=== PATIENT | female | born 1950 | race Caucasian/White ===

== ENCOUNTER → 2020-02-24 11:17 | Outpatient (BNVA) | payer MEDICARE, MEDICAID, SELFPAY | PROVIDERS: PCP Internal Medicine; Referring Provider Internal Medicine; Visit Provider Orthopaedic Surgery | DX: M70.61 Trochanteric bursitis, right hip (principal) | CPT/HCPCS: 20610; 99213; 99214; J1040 ==

== ENCOUNTER → 2020-03-13 11:19 | Outpatient (BNVA) | payer MEDICARE, MEDICAID, SELFPAY | PROVIDERS: PCP Internal Medicine; Referring Provider Internal Medicine; Visit Provider Internal Medicine | DX: J44.9 Chronic obstructive pulmonary disease, unspecified (principal); R91.8 Other nonspecific abnormal finding of lung field; G47.33 Obstructive sleep apnea (adult) (pediatric); C67.9 Malignant neoplasm of bladder, unspecified; F17.210 Nicotine dependence, cigarettes, uncomplicated; Z79.899 Other long term (current) drug therapy | CPT/HCPCS: 99212 ==

== ENCOUNTER → 2020-04-18 09:45 | Outpatient (BNVA) | payer MEDICARE, OTHER, SELFPAY | PROVIDERS: PCP Internal Medicine; Referring Provider Internal Medicine; Visit Provider Internal Medicine Endocrinology, Diabetes & Metabolism | DX: E11.65 Type 2 diabetes mellitus with hyperglycemia (principal); E11.42 Type 2 diabetes mellitus with diabetic polyneuropathy; E78.5 Hyperlipidemia, unspecified; I10 Essential (primary) hypertension; R79.89 Other specified abnormal findings of blood chemistry; E53.8 Deficiency of other specified B group vitamins | CPT/HCPCS: 82947; 99212 ==

== ENCOUNTER → 2020-04-20 09:53 | Outpatient (BNVA) | payer MEDICARE, OTHER, SELFPAY | PROVIDERS: PCP Internal Medicine; Visit Provider Internal Medicine Gastroenterology | DX: Z13.89 Encounter for screening for other disorder (principal) | CPT/HCPCS: Q3014 ==

== ENCOUNTER 2020-05-21 07:45 | Day surgery (SDC) | payer MEDICARE, OTHER, SELFPAY ==
--- NOTE | 2020-05-18 09:13 | P.CONAN_ITS ---
Documented by User: Ruth Ramirez 05/18/20 14:52 HPI - Anesthesia Eval Consult details Narrative: 69yo F for TUR Bladder Tumor,gencitabine instillation Cardiac cleared [facility] Past Medical History Medical History Abnormal colonoscopy Anxiety Bladder cancer CAD (coronary artery disease) Cervical stenosis of spine COPD (chronic obstructive pulmonary disease) Depression Diabetes Diabetic polyneuropathy associated with type 2 diabetes mellitus HTN (hypertension) Hyperlipidemia Low vitamin D level Migraine headache Nonalcoholic steatohepatitis (CHRISTINE) Pulmonary nodule Smoker Vertigo Vitamin B12 deficiency Family History Family History Mother CVD (cardiovascular disease) CVA (cerebral vascular accident) Father CVD (cardiovascular disease) Surgical History Surgical History Fusion of spine of cervical region History of carpal tunnel release History of hysterectomy Social History Social History Alcohol intake: never Smoking Status: Current every day smoker Tobacco Type: Cigarette Cigarettes Per Day: 10 Smoked in Last 30 Days: Yes Use of substances other than those prescribed or required for medical reasons: No Advance Directives: No Advance Directives Information Provided: Yes Recently lost weight without trying: Yes Current occupational status: retired Current occupation: [employer] Meds Allergies Allergy/AdvReac Type Severity Reaction Status Date / Time amoxicillin [AMOXICILLIN] Allergy Mild DIARRHEA Verified 03/13/20 12:00 Darvocet A500 Allergy Unknown upset Verified 03/13/20 12:00 stomach melatonin Allergy Unknown Nausea and Verified 03/13/20 12:00 Vomiting oxycodone [From PERCOCET] Allergy Unknown NAUSEA,VOMI Verified 03/13/20 12:00 TING Propoxyphene HCl Allergy Unknown upset Verified 03/13/20 12:00 stomach influenza virus vaccine, AdvReac Intermediate NAUSEA,DIAR Verified 03/13/20 12:00 specific WU [FLU VACCINE] Iodinated Contrast Media AdvReac Intermediate NAUSEA,DIZZINESS,CHEST Verified 03/13/20 12:00 [IV CONTRAST] PRESSURE lactose [LACTOSE] AdvReac Intermediate GI UPSET Verified 03/13/20 12:00 metronidazole [From FLAGYL] AdvReac Intermediate NAUSEA & Verified 03/13/20 12:00 VOMITING Sulfa (Sulfonamide AdvReac Intermediate EYE DROPS Verified 05/21/20 09:18 Antibiotics) (ONLY)-IRITIS Home Medications Medication Instructions Recorded Confirmed Type aspirin 1 tab PO DAILY 03/08/20 04/20/20 History [id number]-[id number]-[id number] 1 tab PO Q6H PRN 03/08/20 04/20/20 History cholecalciferol (vitamin D3) 125 mcg PO DAILY 03/08/20 04/20/20 History cyanocobalamin (vitamin B-12) 2 tab PO DAILY 03/08/20 04/20/20 History ezetimibe [Zetia] 10 mg PO DAILY 03/08/20 04/20/20 History gabapentin 1 cap PO BID 03/08/20 04/20/20 History lisinopril 1 tab PO DAILY 03/08/20 04/20/20 History triamterene-hydrochlorothiazid 1 tab PO DAILY 03/08/20 04/20/20 History topiramate 100 mg tablet 100 mg PO BID 04/18/20 04/20/20 History zolpidem 10 mg tablet 10 mg PO BEDTIME 04/18/20 04/20/20 History nystatin 100,000 unit/gram topical 1 appl TOPICAL TID 04/19/20 04/20/20 History powder Exam Exam Date and Time: May 18, 2020912 Narrative Narrative: EKG 03/27/2020: SR @71, vertical axis Echo 04/11/20: LVEF >70% Gr 2 DD with increased LA pressure LA mildly dilated RV nml in size Mild MR Trace TR Resting MIBI only 11/2019: Medium size moderate defect involving the inferolateral mid and basal segments. Dobutamine stress to be scheduled. Per cardiology note 03/2020 recent stress of good quality showed no ischemia, only old infarct. Assessment and Plan Assessment Anesthesia Assessment: Chart Reviewed Documented by User: Aggie Casarez 05/21/20 10:24 [facility] Past Medical History Medical History Abnormal colonoscopy Anxiety Bladder cancer CAD (coronary artery disease) Cervical stenosis of spine COPD (chronic obstructive pulmonary disease) Depression Diabetes Diabetic polyneuropathy associated with type 2 diabetes mellitus HTN (hypertension) Hyperlipidemia Low vitamin D level Migraine headache Nonalcoholic steatohepatitis (CHRISTINE) Pulmonary nodule Smoker Vertigo Vitamin B12 deficiency Family History Family History Mother CVD (cardiovascular disease) CVA (cerebral vascular accident) Father CVD (cardiovascular disease) Surgical History Surgical History Fusion of spine of cervical region History of carpal tunnel release History of hysterectomy Social History Social History Alcohol intake: never Smoking Status: Current every day smoker Tobacco Type: Cigarette Cigarettes Per Day: 10 Smoked in Last 30 Days: Yes Use of substances other than those prescribed or required for medical reasons: No Advance Directives: No Advance Directives Information Provided: Yes Recently lost weight without trying: Yes Current occupational status: retired Current occupation: [employer] Meds Allergies Allergy/AdvReac Type Severity Reaction Status Date / Time amoxicillin [AMOXICILLIN] Allergy Mild DIARRHEA Verified 03/13/20 12:00 Darvocet A500 Allergy Unknown upset Verified 03/13/20 12:00 stomach melatonin Allergy Unknown Nausea and Verified 03/13/20 12:00 Vomiting oxycodone [From PERCOCET] Allergy Unknown NAUSEA,VOMI Verified 03/13/20 12:00 TING Propoxyphene HCl Allergy Unknown upset Verified 03/13/20 12:00 stomach influenza virus vaccine, AdvReac Intermediate NAUSEA,DIAR Verified 03/13/20 12:00 specific WU [FLU VACCINE] Iodinated Contrast Media AdvReac Intermediate NAUSEA,DIZZINESS,CHEST Verified 03/13/20 12:00 [IV CONTRAST] PRESSURE lactose [LACTOSE] AdvReac Intermediate GI UPSET Verified 03/13/20 12:00 metronidazole [From FLAGYL] AdvReac Intermediate NAUSEA & Verified 03/13/20 12:00 VOMITING Sulfa (Sulfonamide AdvReac Intermediate EYE DROPS Verified 05/21/20 09:18 Antibiotics) (ONLY)-IRITIS Home Medications Medication Instructions Recorded Confirmed Type aspirin 1 tab PO DAILY 03/08/20 04/20/20 History xpjsnheqpq-elkmtbfplzwjz-sglb 1 tab PO Q6H PRN 03/08/20 04/20/20 History cholecalciferol (vitamin D3) 125 mcg PO DAILY 03/08/20 04/20/20 History cyanocobalamin (vitamin B-12) 2 tab PO DAILY 03/08/20 04/20/20 History ezetimibe [Zetia] 10 mg PO DAILY 03/08/20 04/20/20 History gabapentin 1 cap PO BID 03/08/20 04/20/20 History lisinopril 1 tab PO DAILY 03/08/20 04/20/20 History triamterene-hydrochlorothiazid 1 tab PO DAILY 03/08/20 04/20/20 History topiramate 100 mg tablet 100 mg PO BID 04/18/20 04/20/20 History zolpidem 10 mg tablet 10 mg PO BEDTIME 04/18/20 04/20/20 History nystatin 100,000 unit/gram topical 1 appl TOPICAL TID 04/19/20 04/20/20 History powder Exam Airway Mallampati Class: II TM Dist: >3cm Neck ROM: Full Denture: Upper and Lower Assessment and Plan Assessment Anesthesia Assessment: Anesthesia Plan Discussed and Chart Reviewed Final Anesthetic Review NPO: Yes ASA Class: III Final Preanesthetic Review: No Changes in Pt Med Stat, Meds/Allgs Chart Reviewed, Consent Obtained/Reviewed and Anes Risks/Benef Reviewed Patient Risk: Intermediate Procedure Risk: Low Assessment/Block/Sedation in SS: Assess/Block/Sedation-SS Anesthetic Plan Anesthetic Plan: MAC: Disposition: Standard PACU
[2020-05-21] VITALS (7 sets, daily range): BP systolic 99–127; BP diastolic 44–62; PULSE 72–87; RESP 16–18; TEMP 36.4–36.6; O2SAT 98–100; BMI 25.4
[2020-05-21 08:28] LABS: Glucose, Whole Blood 144 mg/dL (60-115)
[2020-05-21] MEDS: Lactated Ringers 1,000 ML 50 ML IVCONT (09:18)
--- NOTE | 2020-05-21 10:39 | MHC.SHP ---
Pre-Procedural Eval Section A The History & Physical has been completed within 30 days and I have reviewed it.: Yes Section B Chief Complaint: bladder ca Details of Present Illness: Recurrent bladder cancer Needs TURBT with Relevant Family History (Specify if Yes): No Relevant Social History: Tobacco Use Present Medications: see Short Stay Collaborative assessment Medical History: No relevant PMH History of Previous Operations: Relevant previous surgery/procedure and date(s) Allergies: Allergies Allergy/AdvReac Type Severity Reaction Status Date / Time amoxicillin [AMOXICILLIN] Allergy Mild DIARRHEA Verified 03/13/20 12:00 Darvocet A500 Allergy Unknown upset Verified 03/13/20 12:00 stomach melatonin Allergy Unknown Nausea and Verified 03/13/20 12:00 Vomiting oxycodone [From PERCOCET] Allergy Unknown NAUSEA,VOMI Verified 03/13/20 12:00 TING Propoxyphene HCl Allergy Unknown upset Verified 03/13/20 12:00 stomach influenza virus vaccine, AdvReac Intermediate NAUSEA,DIAR Verified 03/13/20 12:00 specific WU [FLU VACCINE] Iodinated Contrast Media AdvReac Intermediate NAUSEA,DIZZINESS,CHEST Verified 03/13/20 12:00 [IV CONTRAST] PRESSURE lactose [LACTOSE] AdvReac Intermediate GI UPSET Verified 03/13/20 12:00 metronidazole [From FLAGYL] AdvReac Intermediate NAUSEA & Verified 03/13/20 12:00 VOMITING Sulfa (Sulfonamide AdvReac Intermediate EYE DROPS Verified 05/21/20 09:18 Antibiotics) (ONLY)-IRITIS Review of Systems Sugical H&P ROS: Negative: Constitution, Cardiovascular, Respiratory, Neurological, Psychiatric, Hem-Onc, Allergic/Immunologic, Gastrointestinal, Genitourinary, Musculoskeletal, Integumentary, Endocrine and Eyes/Ears/Nose/Throat Exam Surgical H&P Exam: Normal: HEENT, Normal: Heart, Normal: Lungs, Normal: Extremities, Normal: Abdomen, Normal: Skin and Normal: Neurological Plan Diagnosis/Plan: Unchanged I have reviewed the history and physical and performed a pertinent physical examination on my patient. No changes have occurred unless specified. TURBT with gemcitabine instillation
--- NOTE | 2020-05-21 11:22 | PM.OP ---
Brief Operative Note Date of Service: 05/21/20 Pre-op diagnosis: Bladder cancer Post-op diagnosis: same Procedure: TURBT medium with gemcitabine instillation Surgeon: Christiano Ponce MD Anesthesia: MAC Estimated blood loss (mL): 0 Pathology: other (Bladder) Condition: stable Disposition: same day
--- NOTE | 2020-05-21 11:23 | P.OP_ITS ---
Operative Note Operative Note Date of Service: 05/21/20 Narrative: PreOperative Diagnosis: Bladder cancer Post Operative Diagnosis: Bladder cancer Procedure: TURBT medium with gemcitabine instillation, narrow band imaging Surgeon: Dr Christiano Ponce Anesthesia: Mac Indications for procedure: 69-year-old female smoker with recurrent papillary medium-sized tumor. Prior lo w-grade bladder cancer. Here for TURBT and gemcitabine instillation Procedure: After informed consent was verified the patient was brought to the operating room and placed in a supine position. anesthesia was administered per protocol. The patient was placed in a modified dorsal lithotomy position and prepped and draped in sterile fashion. Antibiotics have been given. Twenty-one Vietnamese cystoscope inserted per urethra. Lesion seen on right high sidewall approximately 2-3 cm papillary in nature to a stalk on the sidewall. The cystoscope was removed. A resectoscope was placed. Under direct vision the tumor was resected. The base was cauterized for 1 cm around the stalk. Prior sites of resection was seen. The Olympus narrow band imaging system was activated. The bladder was examined under narrow band imaging. No other lesions or proton lesions was seen. The specimen was removed. The bladder was emptied. A [address] way Reynoso catheter was placed. Gemcitabin 2 g in 100 cc normal saline was instilled. This will remain in the bladder for 1 hour. She tolerated the procedure well was transferred in stable condition to the recovery area. Pathology: Bladder tumor medium Drains: Reynoso catheter for gemcitabine
--- NOTE | 2020-05-21 13:57 | HO.POSTANES ---
Post Anesthesia Evaluation Post Anesthesia Evaluation Vital Signs: Vital Signs Temp Pulse Resp BP Pulse Ox 05/21/20 13:28 97.5 F 83 18 127/62 99 05/21/20 12:58 85 18 127/62 99 05/21/20 12:28 80 18 115/59 L 99 05/21/20 12:01 72 18 105/49 L 99 05/21/20 11:44 74 18 109/46 L 98 05/21/20 11:30 97.5 F 81 16 99/44 L 98 05/21/20 08:54 97.8 F 87 16 124/61 100 Anesthesia: Monitored Mental Status: Awake Pain Control: Satisfactory Nausea/Vomiting: None Hydration: Adequate Anesthesia-Related Issues: No Anes. Related Issues
== END 2020-05-21 14:03 | disposition home or self-care (01) ==
PROVIDERS: PCP Internal Medicine; Visit Provider Urology
PROC: 0TBB8ZZ Excision of Bladder, Via Natural or Artificial Opening Endoscopic (ICD-10-PCS; CPT 52235; principal; 2020-05-21 09:50)
DX: C67.9 Malignant neoplasm of bladder, unspecified (principal); I10 Essential (primary) hypertension; J44.9 Chronic obstructive pulmonary disease, unspecified; E11.42 Type 2 diabetes mellitus with diabetic polyneuropathy; Z79.84 Long term (current) use of oral hypoglycemic drugs; R91.8 Other nonspecific abnormal finding of lung field; F17.210 Nicotine dependence, cigarettes, uncomplicated; Z88.0 Allergy status to penicillin; Z88.2 Allergy status to sulfonamides; Z88.8 Allergy status to other drugs, medicaments and biological substances
CPT/HCPCS: 52235; 51720; 82947; 88307; J2405; J3010; J9201

== ENCOUNTER → 2020-06-05 10:38 | Outpatient (BNVA) | payer MEDICARE, MEDICAID, OTHER, SELFPAY | PROVIDERS: PCP Internal Medicine; Visit Provider Urology | DX: C67.9 Malignant neoplasm of bladder, unspecified (principal) | CPT/HCPCS: 99212 ==

== ENCOUNTER 2020-06-11 12:11 | Outpatient (REF) | payer MEDICARE, MEDICAID, SELFPAY ==
--- NOTE | 2020-06-12 10:10 | XR_ITS ---
EXAMINATION: XR HIP, LEFT CLINICAL INFORMATION: Pain in left hip COMPARISON: Right hip radiograph from 03/02/2019 TECHNIQUE: Two views of the left hip, single view of the pelvis. FINDINGS: There is no acute visible fracture or dislocation. Degenerative changes of the bilateral femoral acetabular joints, left greater than right with joint space narrowing and periarticular osteophyte formation and supra-acetabular sclerosis. Degenerative changes of the lower lumbar spine and lumbosacral junction. Enthesopathy of the bilateral iliac wings. Enthesopathy of the left greater trochanter and left inferior pubic ramus. Joint spaces and alignment are otherwise maintained. Visualized bowel gas pattern is unremarkable. Pelvic phleboliths are visualized. Soft tissues are unremarkable. Atherosclerotic calcifications are noted. XR/XR hip LT w [id number] IMPRESSION: 1. No acute visible fracture or dislocation. 2. Degenerative changes of the bilateral femoral acetabular joints, left greater than right.
== END 2020-06-11 12:12 | disposition home or self-care (01) ==
LOC: HO.HOSX 12:11
PROVIDERS: Visit Provider Orthopaedic Surgery
DX: M25.552 Pain in left hip (principal)
CPT/HCPCS: 73502

== ENCOUNTER → 2020-06-12 10:10 | Outpatient (BNVA) | payer MEDICARE, MEDICAID, OTHER, SELFPAY | PROVIDERS: PCP Internal Medicine; Visit Provider Orthopaedic Surgery | DX: M25.552 Pain in left hip (principal) | CPT/HCPCS: 20610; 99212; J1040 ==

== ENCOUNTER → 2020-07-16 11:23 | Outpatient (BNVA) | payer MEDICARE, OTHER, SELFPAY | PROVIDERS: PCP Internal Medicine; Visit Provider Internal Medicine | DX: J44.9 Chronic obstructive pulmonary disease, unspecified (principal); R91.1 Solitary pulmonary nodule; F17.200 Nicotine dependence, unspecified, uncomplicated; Z71.6 Tobacco abuse counseling; Z79.899 Other long term (current) drug therapy; Z79.52 Long term (current) use of systemic steroids | CPT/HCPCS: 99212 ==

== ENCOUNTER → 2020-07-31 10:18 | Outpatient (BNVA) | payer MEDICARE, SELFPAY | PROVIDERS: PCP Internal Medicine; Visit Provider Urology | DX: Z13.89 Encounter for screening for other disorder (principal) | CPT/HCPCS: Q3014 ==

== ENCOUNTER 2020-08-08 11:57 | Outpatient (REF) | payer MEDICARE, MEDICAID, SELFPAY ==
[2020-08-08 12:12] LABS: Glucose Urine UA NEG (NEG); Leukocyte Esterase Urine TRACE (NEG); Nitrite Urine NEG (NEG); Specific Gravity - Urine >= 1.030 (1.005-1.025); Urine Blood 2+ (NEG); Urine Ketones NEG (NEG); Urine Protein 2+ MG/DL (NEG-TRACE)
[2020-08-08 12:13] LABS: Appearance Urine CLOUDY; Color Urine YELLOW
[2020-08-08 12:22] LABS: Bacteria Urine 1+ /LPF; Squamous Epithelial Cell Urine 2+ /LPF
== END 2020-08-08 11:58 | disposition home or self-care (01) ==
LOC: HO.LNP 11:57
PROVIDERS: Visit Provider Urology
DX: N39.0 Urinary tract infection, site not specified (principal)
CPT/HCPCS: 81001; 87086

== ENCOUNTER → 2020-08-14 10:44 | Outpatient (BNVA) | payer MEDICARE, OTHER, SELFPAY | PROVIDERS: PCP Internal Medicine; Visit Provider Internal Medicine Endocrinology, Diabetes & Metabolism | DX: E11.42 Type 2 diabetes mellitus with diabetic polyneuropathy (principal); I10 Essential (primary) hypertension; R79.89 Other specified abnormal findings of blood chemistry; E53.8 Deficiency of other specified B group vitamins; E78.01 Familial hypercholesterolemia | CPT/HCPCS: 82947; 99212 ==

== ENCOUNTER 2020-08-22 10:30 | Outpatient (REF) | payer MEDICARE, MEDICAID, SELFPAY ==
[2020-08-22 11:06] LABS: Hematocrit 36.5 % (37-47); Mean Corpuscular HGB Conc 30.1 g/dl (31.0-35.0); Mean Corpuscular Hemoglobin 29.2 pg (27.0-33.0); Mean Corpuscular Volume 96.8 fL (80-98); Mean Platelet Volume 11.5 fL (9.4-12.3); Platelet Count 254 X10*3/uL (160-400); Red Blood Count 3.77 X10*6/uL (4.20-5.50); White Blood Count 11.3 X10*3/uL (4.8-10.8)
[2020-08-22 11:10] LABS: INTERNATIONAL NORM RATIO 0.9 (0.9-1.1); Prothrombin Time 11.2 SEC (10.8-13.0)
[2020-08-22 11:34] LABS: Alanine Aminotransferase 15 U/L (0-31); Albumin Level 3.6 g/dL (3.5-5.0); Alkaline Phosphatase 113 U/L (39-117); Anion Gap 9 (12-20); Aspartate Amino Transferase 25 U/L (5-31); Bilirubin Total 0.5 mg/dL (0.0-1.0); Blood Urea Nitrogen 17 mg/dL (9-16); Calcium 8.9 mg/dL (8.4-10.2); Carbon Dioxide 25 mmol/L (22-29); Chloride 112 mmol/L (96-108); Cholesterol 242 mg/dL; Estimated Glomerular Filt Rate > 60; Glucose Fasting 84 mg/dL (60-99); HDL Cholesterol 31 mg/dL; LDL Cholesterol Calculated 153 mg/dl; Potassium 4.4 mmol/L (3.3-5.1); Sodium 142 mmol/L (135-145); Total Protein 6.8 g/dL (6.5-8.0); Triglycerides 290 mg/dL
[2020-08-22 11:54] LABS: Free T4 (Free Thyroxine) 0.77 ng/dL (0.71-1.85); Thyroid Stimulating Hormone 2.36 uIU/mL (0.32-4.0); Vitamin D 25-OH Total 10.2 ng/mL (>30)
[2020-08-22 11:58] LABS: Glucose Urine UA NEG (NEG); Leukocyte Esterase Urine NEG (NEG); Nitrite Urine NEG (NEG); Specific Gravity - Urine 1.015 (1.005-1.025); Urine Blood 1+ (NEG); Urine Ketones NEG (NEG); Urine Protein NEG (NEG-TRACE)
[2020-08-22 11:59] LABS: Appearance Urine CLEAR; Color Urine YELLOW
[2020-08-22 12:10] LABS: Squamous Epithelial Cell Urine TRACE /LPF
[2020-08-22 12:23] LABS: Folate 2.2 ng/mL (> or = 4.0); Vitamin B12 237 pg/mL (200-900)
[2020-08-22 12:24] LABS: Creatinine Urine 39.83 mg/dL; Microalbum/Creatinine Ratio Ur 90.3 ug/mg cr
[2020-08-22 15:59] LABS: Folate 1.8 ng/mL (> or = 4.0); Vitamin B12 235 pg/mL (200-900)
[2020-08-23 03:11] LABS: LDL Cholesterol Direct 156 mg/dL (<100)
[2020-08-23 06:46] LABS: DHEA Sulfate 6 mcg/dL (7-177)
[2020-08-25 12:02] LABS: Nicotinamide 24 ng/mL; Vit B3 - Nicotinic Acid <20 ng/mL
[2020-08-25 12:47] LABS: Vitamin B1 8 nmol/L (8-30)
[2020-08-25 18:22] LABS: Vitamin A 29 mcg/dL (38-98)
[2020-08-26 09:42] LABS: Alpha-Tocopherol 20.9 mg/L (5.7-19.9); Beta-Gamma Tocopherol 3.4 mg/L (<=4.3)
[2020-08-29 10:52] LABS: Vitamin B5 (Pantothenic Acid) 87 ng/mL (<275)
== END 2020-08-22 10:31 | disposition home or self-care (01) ==
LOC: HO.LAB 10:30
PROVIDERS: Internal Medicine Gastroenterology; Absent Provider Internal Medicine Endocrinology, Diabetes & Metabolism; PCP Internal Medicine; Visit Provider Urology
DX: E78.5 Hyperlipidemia, unspecified (principal); I10 Essential (primary) hypertension; R79.89 Other specified abnormal findings of blood chemistry; E53.8 Deficiency of other specified B group vitamins; E11.42 Type 2 diabetes mellitus with diabetic polyneuropathy; E78.01 Familial hypercholesterolemia; E11.65 Type 2 diabetes mellitus with hyperglycemia; N39.0 Urinary tract infection, site not specified; K75.81 Nonalcoholic steatohepatitis (NASH)
CPT/HCPCS: 36415; 80053; 80061; 81001; 82043; 82306; 82607; 82627; 82746; 83721; 84425; 84439; 84443; 84446; 84590; 84591; 85027; 85610

== ENCOUNTER → 2020-09-04 09:46 | Outpatient (BNVA) | payer MEDICARE, OTHER, SELFPAY | PROVIDERS: PCP Internal Medicine; Visit Provider Orthopaedic Surgery | DX: M70.61 Trochanteric bursitis, right hip (principal) | CPT/HCPCS: 20610; 99212; J1040 ==

== ENCOUNTER → 2020-10-03 13:49 | Outpatient (BNVA) | payer MEDICARE, OTHER, SELFPAY | PROVIDERS: PCP Internal Medicine; Visit Provider Urology | DX: N39.0 Urinary tract infection, site not specified (principal); C67.9 Malignant neoplasm of bladder, unspecified | CPT/HCPCS: 52000; 99212 ==

== ENCOUNTER → 2020-10-05 11:09 | Outpatient (BNVA) | payer MEDICARE, OTHER, SELFPAY | PROVIDERS: PCP Internal Medicine; Referring Provider Internal Medicine; Visit Provider Internal Medicine Gastroenterology | DX: K75.81 Nonalcoholic steatohepatitis (NASH) (principal) | CPT/HCPCS: 99212 ==

== ENCOUNTER 2020-11-04 07:28 | Inpatient (IN) | payer MEDICARE, OTHER, SELFPAY ==
[2020-11-04] VITALS (13 sets, daily range): BP systolic 100–147; BP diastolic 42–65; PULSE 72–90; RESP 15–22; TEMP 36.8–36.9; O2SAT 94–97; BMI 26.7
--- NOTE | ~2020-11-04 | CT_ITS ---
EXAMINATION: CT BRAIN, CT CERVICAL SPINE AND CT CHEST WITHOUT CONTRAST CLINICAL INFORMATION: Falls. COMPARISON: CT brain 02/06/2020. CT chest 11/29/2019 TECHNIQUE: 5 mm thin axial and reformatted 2 mm thin sagittal and coronal images of brain were obtained. Axial 3 mm thin and reformatted 2 mm thin sagittal and coronal images of cervical spine were obtained. Lastly axial 5 mm thin and reformatted 3 mm thin sagittal and coronal images of chest were obtained without contrast. DLP 1331 FINDINGS: Brain: There is no acute intra-axial, extra-axial bleed, masses or midline shift. There is no acute infarction in evolution. No edema. The lateral ventricles are symmetrical in size with moderately enlarged. There is diffuse periventricular hypodensity suggestive of chronic small vessel ischemia. Windows reveal no calvarial abnormality. Bilateral paranasal sinuses and mastoid air cells are well aerated. Cervical spine: On sagittal reconstructed images there is C4-C5 and C5-C6 disc fusion with artificial disc stabilized with ventral plate and screws. Minimal loss of C3-C4 and C6-C7 disc heights are noted with mild posterior spondylosis at the C3-C4 C4-C5, C5-C6 and C6-C7 disc levels is noted. The craniovertebral junction appears normal. There is rotatory subluxation of the C1-C2 alignment. There is no visible fracture or dislocation. There is a bilateral facet joint arthropathy slightly worse on the left at C2-C3, C3-C4 and C4-C5 disc levels. Prevertebral soft tissues are normal. The airway is widely patent. CHEST: There is diffuse centrilobular emphysematous changes of both lungs without acute pneumonic process or contusion. There is a 3 mm nodule right lower lobe superior segment image 16/26, 3 mm nodule left lower lobe superior segment image 124/31 6 mm in subpleural nodule left lower lobe superior segment image 19/26, focal atelectatic changes right lung apex image 113/27, 3 mm nodules adjacent to each other right lower lobe axial image 281/27, dependent atelectasis left lung base. The thyroid lobes are symmetrical and normal. The central trachea and the bronchi widely patent. There is atherosclerotic changes of thoracic arch, atrioventricular valves with dense coronary artery calcifications. No pericardial effusion seen. No abnormal mediastinal lymph nodes or mass seen. There is no pleural effusion or thickening. The axilla and the chest wall appears unremarkable. Visualized liver, spleen, adrenal glands appear unremarkable. 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 Bone windows reveal mild ventral spondylosis. No lytic or sclerotic process seen. CT/CT cervical spine wo con IMPRESSION: No acute intracranial process seen. Age-related cerebral atrophy with chronic small vessel microangiopathy. Rotatory subluxation C1-C2 disc level. No acute fracture seen. There is C4-C5, C5-C6 disc prosthesis for fusion stabilized by ventral plate and screws. Degenerative disc changes cervical spine. Centrilobular emphysema with small pulmonary nodules. The left lower lobe subpleural nodule measuring 5 mm is approximately 6 mm on the present exam the T11 nodule left lower lobe superior segment is stable. 3 mm small nodules adjacent to each other in right lower lobe appear new. Recommend follow-up as per Fleischner guidelines in 18-24 months. No contusion or consolidation seen.
--- NOTE | ~2020-11-04 | XR_ITS ---
EXAMINATION: XR WRIST, LEFT CLINICAL INFORMATION: Fall. COMPARISON: None TECHNIQUE: PA, lateral, and oblique views of the left wrist. FINDINGS: The bones and soft tissues are normal. No fracture. Alignment is anatomic with normal joint spaces. No erosions or abnormal soft tissue calcifications. XR/XR wrist LT min 3V IMPRESSION: Normal left wrist.
--- NOTE | 2020-11-04 07:39 | ECG_ITS ---
Test Reason : CHECK CARDIAC STATUS Blood Pressure : / mmHG Vent. Rate : 077 BPM Atrial Rate : 077 BPM P-R Int : 154 ms QRS Dur : 148 ms QT Int : 454 ms P-R-T Axes : 022 088 -11 degrees QTc Int : 513 ms Normal sinus rhythm Right bundle branch block Abnormal ECG When compared with ECG of 06-FEB-2020 17:23, No significant change was found Referred By: Augustina Restrepo Electronically Signed By:Julio Rockwell
--- NOTE | 2020-11-04 07:45 | ED_ITS ---
HPI - Weakness General Chief complaint: Fall Stated complaint: weakness, fall Time Seen by Provider: 11/04/20 07:37 Source: patient, EMS and old records reviewed Mode of arrival: EMS Limitations: other (poor historian) History of Present Illness HPI Narrative: 70 yo female with hx of COPD, chronic UTI on macrobid, HTN, CAD, bladder cancer comes in with 2 days of weakness and falls EMS states the house was in disarray and pill bottles were strewn about, the patient c/o huring her left wrist during the falls hit her head but no LOC MD Complaint: generalized weakness and difficulty walking Onset (ago): day(s) (2) Duration: progressively worsening Location: generalized Migration: none Severity: moderate Quality: dull Relieving factors: movement and exertion Exacerbating factors: none Associated symptoms: easy bruising and myalgias Related Data Home Medications Medication Instructions Recorded Confirmed aspirin 1 tab PO DAILY 03/08/20 08/14/20 yvmmergvqh-lolqcvznrtkag-nmjv 1 tab PO Q6H PRN 03/08/20 08/14/20 cyanocobalamin (vitamin B-12) 2 tab PO DAILY 03/08/20 08/14/20 gabapentin 1 cap PO BID 03/08/20 08/14/20 triamterene-hydrochlorothiazid 1 tab PO DAILY 03/08/20 08/14/20 topiramate 100 mg tablet 100 mg PO BID 04/18/20 08/14/20 zolpidem 10 mg tablet 10 mg PO BEDTIME 04/18/20 08/14/20 clonazepam 1 mg tablet 1 mg PO BEDTIME PRN 07/16/20 08/14/20 hydroxyzine HCl 10 mg tablet 10 mg PO BEDTIME 07/16/20 08/14/20 nitroglycerin 0.4 mg sublingual 0.4 mg SUBLINGUAL 07/16/20 08/14/20 tablet paroxetine HCl 20 mg tablet 20 mg PO DAILY 07/16/20 08/14/20 repaglinide 0.5 mg tablet 0.5 mg PO BID 10/03/20 Previous Rx's Medication Instructions Recorded blood sugar diagnostic #100 ea 04/19/20 bupropion HCl 150 mg 24 hr tablet, 150 mg PO QAM #90 tab 05/18/20 extended release trimethoprim 100 mg PO Q12H 5 Days #10 tab 05/21/20 ProAir HFA 90 mcg/actuation 2 puff INHALATION Q4-6H PRN #8.5 g 06/07/20 aerosol inhaler NS fluticasone fur. 100 mcg-umeclid 1 ea INHALATION DAILY #60 cap 08/09/20 62.5 mcg-vilant 25 mcg inhalat.powder meclizine 25 mg tablet 25 mg PO TID #90 tab 08/10/20 ezetimibe 10 mg tablet 10 mg PO DAILY 90 Days #90 tab 08/14/20 metformin 500 mg tablet 500 mg PO DAILY 90 Days #90 tab 08/14/20 rosuvastatin 40 mg tablet 40 mg PO DAILY 90 Days #90 tab 08/14/20 sitagliptin 100 mg tablet 100 mg PO DAILY #90 tab 08/14/20 nitrofurantoin 100 mg PO BID 7 Days #14 cap 08/15/20 monohydrate/macrocrystals 100 mg capsule nystatin 100,000 unit/gram topical 1 appl TOPICAL TID #60 g 08/16/20 powder cholecalciferol (vitamin D3) 125 125 mcg PO DAILY 30 Days #30 cap 08/22/20 mcg (5,000 unit) capsule cyanocobalamin (vitamin B-12) 1,000 mcg SUBLINGUAL DAILY #90 tab 08/22/20 1,000 mcg sublingual tablet folic acid 1 mg tablet 1 mg PO DAILY #90 tab 08/22/20 vitamin A 2,400 mcg capsule 2,400 mcg PO DAILY #30 cap 09/04/20 lisinopril 2.5 mg tablet 2.5 mg PO DAILY #90 tab 09/07/20 nitrofurantoin macrocrystal 50 mg 50 mg PO BEDTIME 90 Days #90 cap 10/03/20 capsule pentoxifylline 400 mg 400 mg PO BID #60 tab 10/22/20 tablet,extended release simethicone 125 mg chewable tablet 125 mg PO QID PRN #120 ea 10/22/20 Allergies Allergy/AdvReac Type Severity Reaction Status Date / Time amoxicillin [AMOXICILLIN] Allergy Mild DIARRHEA Verified 10/05/20 12:19 Darvocet A500 Allergy Unknown upset Verified 10/05/20 12:19 stomach melatonin Allergy Unknown Nausea and Verified 10/05/20 12:19 Vomiting oxycodone [From PERCOCET] Allergy Unknown NAUSEA,VOMI Verified 10/05/20 12:19 TING Propoxyphene HCl Allergy Unknown upset Verified 10/05/20 12:19 stomach influenza virus vaccine, AdvReac Intermediate NAUSEA,DIAR Verified 10/05/20 12:19 specific WU [FLU VACCINE] Iodinated Contrast Media AdvReac Intermediate NAUSEA,DIZZINESS,CHEST Verified 10/05/20 12:19 [IV CONTRAST] PRESSURE lactose [LACTOSE] AdvReac Intermediate GI UPSET Verified 10/05/20 12:19 metronidazole [From FLAGYL] AdvReac Intermediate NAUSEA & Verified 10/05/20 12:19 VOMITING Sulfa (Sulfonamide AdvReac Intermediate EYE DROPS Verified 10/05/20 12:19 Antibiotics) (ONLY)-IRITIS Review of Systems Review of Systems: Constitutional : No Weight loss, No Fever, No Chills, pos Fatigue, pos Malaise ENT/Mouth : No sore throat, No Rhinorrhea Eyes: No Eye Pain, No Swelling, No Redness Cardiovascular : No Chest Pain, No SOB, No Dyspnea on Exertion, No Orthopnea, No Edema, No Palpitations Respiratory : No Cough, No Sputum, No Wheezing Gastrointestinal : No Nausea, No Vomiting, No Diarrhea, No Constipation, No abdominal Pain, No Hematochezia, No Melena Genitourinary : No Dysuria, No Urinary Frequency, No Hematuria, Musculoskeletal : No joint pain, No Myalgias, No Joint Swelling Skin : No Skin Lesions, No rash Neuro : pos Weakness, No Numbness, pos Dizziness, No Headache Psych : No Anxiety/Panic, No Depression Heme/Lymph: No Bruising, No Bleeding,No Lymphadenopathy Endocrine : No Polyuria, No Polydipsia All other systems reviewed and are negative [facility] Past Medical History Attestation statement: The following information was validated with the patient. Medical History Abnormal colonoscopy Anxiety Bladder cancer CAD (coronary artery disease) Cervical stenosis of spine COPD (chronic obstructive pulmonary disease) Depression Diabetes Diabetic polyneuropathy associated with type 2 diabetes mellitus HTN (hypertension) Hyperlipidemia Low vitamin D level Migraine headache Nonalcoholic steatohepatitis (CHRISTINE) Pulmonary nodule Smoker Vertigo Vitamin B12 deficiency Surgical History Fusion of spine of cervical region History of carpal tunnel release History of hysterectomy Family History Family History Mother CVD (cardiovascular disease) CVA (cerebral vascular accident) Father CVD (cardiovascular disease) Social History Social History Alcohol intake: never Patient Tobacco Use Status: Current everyday Tobacco user Cigarettes Per Day: 10 Use of substances other than those prescribed or required for medical reasons: No Advance Directives: Yes Advance Directives Information Provided: No Advance Directives on File: No Current occupational status: retired Current occupation: Right Handed Physical Exam Vital Signs: Vital Signs: Last Vital Signs Temp 98.3 F 11/04/20 07:38 Pulse 90 11/04/20 10:29 Resp 16 11/04/20 10:29 BP 125/54 L 11/04/20 10:29 Pulse Ox 96 11/04/20 10:29 Body Mass Index 26.7 Appearance: Alert. Oriented X3 - slow to respond has to take time to get answer. Mild acute distress. Eyes: Pupils equal, round and reactive to light. ENT: Pharynx normal. Neck: Normal inspection. Neck supple. CVS: Normal heart rate and rhythm. Pulses normal. Respiratory: No respiratory distress. Breath sounds coarse Abdomen: Soft and non-tender. Skin: Skin warm and dry. Normal skin color. Normal skin turgor. L wrist small skin avulsion over ulnar styloid Extremities: No lower extremity edema. No calf ttp Neuro: Oriented X 3. No motor deficit. No sensory deficit. Course Course Course Narrative: no obvious source at this time could be polypharmacy given gabapentin, clonazepam, wellbutrin, atarax will obtain ammonia, ABG, ethanol but unsure of cause at this time patient given IVF, she has no source of infection, she has a metabolic acidosis at this time she is on metformin but lactic acid is normal daughter called ED and states she is concerned about patient taking too many medications and polypharmacy issue MDM - Weakness MDM Narrative Medical decision making narrative: 70 yo female with hx of COPD, chronic UTI on macrobid, HTN, CAD, bladder cancer comes in with 2 days of weakness and falls EMS states the house was in disarray and pill bottles were strewn about, the patient c/o huring her left wrist during the falls hit her head but no LOC at this time she is alert and oriented x 3 but very slow to respond, has skin avulsion on L wrist - will need scans for trauma CT head/c spine/chest - infectious and metabolic workup, possible UTI given chronic macrobid use and EMS notes multiple pill bottles out ?compliance the patient cannot give me a full history of her current medical problems. 2L of IVF ordered Lab Data Result diagrams: 11/04/20 07:58 11/04/20 07:58 Labs: Lab Results 11/04/20 11/04/20 11/04/20 Range/Units 07:58 07:58 07:58 WBC 10.5 (4.8-10.8) X10*3/uL RBC 4.09 L (4.20-5.50) X10*6/uL Hgb 11.5 L (12.0-16.0) g/dl Hct 37.2 (37-47) % MCV 91.0 (80-98) fL MCH 28.1 (27.0-33.0) pg MCHC 30.9 L (31.0-35.0) g/dl RDW 14.1 (11.0-16.0) % Plt Count 232 (160-400) X10*3/uL MPV 11.5 (9.4-12.3) fL Immature Gran % (Auto) 0.4 (0.0-0.4) % Neut % (Auto) 74.7 H (45-73) % Lymph % (Auto) 15.3 L (20-40) % Josephine % (Auto) 6.1 (2-11) % Eos % (Auto) 2.9 (0-4) % Baso % (Auto) 0.6 (0-2) % Lymph # (Auto) 1.6 (1.2-4.9) X10*3/uL Josephine # (Auto) 0.6 (0.1-1.2) X10*3/uL Eos # (Auto) 0.3 (0.0-0.4) X10*3/uL Baso # (Auto) 0.1 (0.0-0.2) X10*3/uL Abs Immat Gran (auto) 0.04 H (0.00-0.03) X10*3/uL Absolute Neuts (auto) 7.9 (2.0-8.3) X10*3/uL Absolute Nucleated RBC 0.000 (0.0-0.012) X10*3/uL Nucleated RBC % (auto) 0.0 (0.0-0.2) /100WBC PT (10.8-13.0) SEC INR (0.9-1.1) APTT (24.1-38.0) SEC O2 Saturation % ABG pH at Pt Temp (7.35-7.45) ABG pH (Temp Correct) (7.35-7.45) ABG pCO2 at Pt Temp (32-45) mmHg ABG pCO2 (Temp Corrct (32-45) mmHg ABG pO2 at Pt Temp (83-108) mmHg ABG pO2 (Temp Correct (83-108) ABG HCO3 (22-26) mmol/L ABG Base Excess (Actual) mmol/L VBG pH (7.32-7.43) VBG pCO2 mmHg VBG pO2 mmHg VBG HCO3 (22-26) mmol/L VBG O2 Saturation % VBG Base Excess mmol/L Sodium 144 (135-145) mmol/L Potassium 4.2 (3.3-5.1) mmol/L Chloride 113 H (96-108) mmol/L Carbon Dioxide 20 L (22-29) mmol/L Anion Gap 15 (12-20) BUN 34 H D (9-16) mg/dL Creatinine 1.30 (0.5-1.4) mg/dL Estim Creat Clear Calc 33.5 Estimated GFR 40 Random Glucose 123 H (60-115) mg/dL Lactic Acid (0.5-2.0) mmol/L Calcium 9.7 D (8.4-10.2) mg/dL Magnesium (1.6-2.6) mg/dL Total Bilirubin (0.0-1.0) mg/dL Direct Bilirubin (0.0-0.5) mg/dL AST (5-31) U/L ALT (0-31) U/L Alkaline Phosphatase (39-117) U/L Total Creatine Kinase (26-140) U/L Troponin I High Sens (<3.5-17.0) ng/L Total Protein (6.5-8.0) g/dL Albumin (3.5-5.0) g/dL Lipase (8-78) U/L Urine Color Urine Appearance Urine pH (5.0-8.0) Ur Specific [place] (1.005-1.025) Urine Protein (NEG-TRACE) MG/DL Urine Glucose (UA) (NEG) MG/DL Urine Ketones (NEG) MG/DL Urine Blood (NEG) Urine Nitrite (NEG) Ur Leukocyte Esterase (NEG) Ethyl Alcohol mg/dL COVID-19 (JENNIFER) Negative (Negative) COVID-19 Clin Com See Note 11/04/20 11/04/20 11/04/20 Range/Units 07:58 07:58 07:58 WBC (4.8-10.8) X10*3/uL RBC (4.20-5.50) X10*6/uL Hgb (12.0-16.0) g/dl Hct (37-47) % MCV (80-98) fL MCH (27.0-33.0) pg MCHC (31.0-35.0) g/dl RDW (11.0-16.0) % Plt Count (160-400) X10*3/uL MPV (9.4-12.3) fL Immature Gran % (Auto) (0.0-0.4) % Neut % (Auto) (45-73) % Lymph % (Auto) (20-40) % Josephine % (Auto) (2-11) % Eos % (Auto) (0-4) % Baso % (Auto) (0-2) % Lymph # (Auto) (1.2-4.9) X10*3/uL Josephine # (Auto) (0.1-1.2) X10*3/uL Eos # (Auto) (0.0-0.4) X10*3/uL Baso # (Auto) (0.0-0.2) X10*3/uL Abs Immat Gran (auto) (0.00-0.03) X10*3/uL Absolute Neuts (auto) (2.0-8.3) X10*3/uL Absolute Nucleated RBC (0.0-0.012) X10*3/uL Nucleated RBC % (auto) (0.0-0.2) /100WBC PT 12.3 (10.8-13.0) SEC INR 1.0 (0.9-1.1) APTT 35.6 (24.1-38.0) SEC O2 Saturation % ABG pH at Pt Temp (7.35-7.45) ABG pH (Temp Correct) (7.35-7.45) ABG pCO2 at Pt Temp (32-45) mmHg ABG pCO2 (Temp Corrct (32-45) mmHg ABG pO2 at Pt Temp (83-108) mmHg ABG pO2 (Temp Correct (83-108) ABG HCO3 (22-26) mmol/L ABG Base Excess (Actual) mmol/L VBG pH (7.32-7.43) VBG pCO2 mmHg VBG pO2 mmHg VBG HCO3 (22-26) mmol/L VBG O2 Saturation % VBG Base Excess mmol/L Sodium (135-145) mmol/L Potassium (3.3-5.1) mmol/L Chloride (96-108) mmol/L Carbon Dioxide (22-29) mmol/L Anion Gap (12-20) BUN (9-16) mg/dL Creatinine (0.5-1.4) mg/dL Estim Creat Clear Calc Estimated GFR Random Glucose (60-115) mg/dL Lactic Acid (0.5-2.0) mmol/L Calcium 9.8 (8.4-10.2) mg/dL Magnesium 2.2 (1.6-2.6) mg/dL Total Bilirubin 0.3 (0.0-1.0) mg/dL Direct Bilirubin 0.2 (0.0-0.5) mg/dL AST 29 (5-31) U/L ALT 13 (0-31) U/L Alkaline Phosphatase 101 (39-117) U/L Total Creatine Kinase 85 (26-140) U/L Troponin I High Sens < 3.5 (<3.5-17.0) ng/L Total Protein 7.3 (6.5-8.0) g/dL Albumin 4.0 (3.5-5.0) g/dL Lipase 40 (8-78) U/L Urine Color Urine Appearance Urine pH (5.0-8.0) Ur Specific [place] (1.005-1.025) Urine Protein (NEG-TRACE) MG/DL Urine Glucose (UA) (NEG) MG/DL Urine Ketones (NEG) MG/DL Urine Blood (NEG) Urine Nitrite (NEG) Ur Leukocyte Esterase (NEG) Ethyl Alcohol mg/dL COVID-19 (JENNIFER) (Negative) COVID-19 Clin Com 11/04/20 11/04/20 11/04/20 Range/Units 07:59 07:59 10:14 WBC (4.8-10.8) X10*3/uL RBC (4.20-5.50) X10*6/uL Hgb (12.0-16.0) g/dl Hct (37-47) % MCV (80-98) fL MCH (27.0-33.0) pg MCHC (31.0-35.0) g/dl RDW (11.0-16.0) % Plt Count (160-400) X10*3/uL MPV (9.4-12.3) fL Immature Gran % (Auto) (0.0-0.4) % Neut % (Auto) (45-73) % Lymph % (Auto) (20-40) % Josephine % (Auto) (2-11) % Eos % (Auto) (0-4) % Baso % (Auto) (0-2) % Lymph # (Auto) (1.2-4.9) X10*3/uL Josephine # (Auto) (0.1-1.2) X10*3/uL Eos # (Auto) (0.0-0.4) X10*3/uL Baso # (Auto) (0.0-0.2) X10*3/uL Abs Immat Gran (auto) (0.00-0.03) X10*3/uL Absolute Neuts (auto) (2.0-8.3) X10*3/uL Absolute Nucleated RBC (0.0-0.012) X10*3/uL Nucleated RBC % (auto) (0.0-0.2) /100WBC PT (10.8-13.0) SEC INR (0.9-1.1) APTT (24.1-38.0) SEC O2 Saturation % ABG pH at Pt Temp (7.35-7.45) ABG pH (Temp Correct) (7.35-7.45) ABG pCO2 at Pt Temp (32-45) mmHg ABG pCO2 (Temp Corrct (32-45) mmHg ABG pO2 at Pt Temp (83-108) mmHg ABG pO2 (Temp Correct (83-108) ABG HCO3 (22-26) mmol/L ABG Base Excess (Actual) mmol/L VBG pH 7.28 L (7.32-7.43) VBG pCO2 38 mmHg VBG pO2 48 mmHg VBG HCO3 18 L (22-26) mmol/L VBG O2 Saturation 74.0 % VBG Base Excess -7.2 mmol/L Sodium (135-145) mmol/L Potassium (3.3-5.1) mmol/L Chloride (96-108) mmol/L Carbon Dioxide (22-29) mmol/L Anion Gap (12-20) BUN (9-16) mg/dL Creatinine (0.5-1.4) mg/dL Estim Creat Clear Calc Estimated GFR Random Glucose (60-115) mg/dL Lactic Acid 1.1 (0.5-2.0) mmol/L Calcium (8.4-10.2) mg/dL Magnesium (1.6-2.6) mg/dL Total Bilirubin (0.0-1.0) mg/dL Direct Bilirubin (0.0-0.5) mg/dL AST (5-31) U/L ALT (0-31) U/L Alkaline Phosphatase (39-117) U/L Total Creatine Kinase (26-140) U/L Troponin I High Sens (<3.5-17.0) ng/L Total Protein (6.5-8.0) g/dL Albumin (3.5-5.0) g/dL Lipase (8-78) U/L Urine Color YELLOW Urine Appearance CLEAR Urine pH 6.0 (5.0-8.0) Ur Specific [place] 1.025 (1.005-1.025) Urine Protein NEG (NEG-TRACE) MG/DL Urine Glucose (UA) NEG (NEG) MG/DL Urine Ketones NEG (NEG) MG/DL Urine Blood NEG (NEG) Urine Nitrite NEG (NEG) Ur Leukocyte Esterase NEG (NEG) Ethyl Alcohol mg/dL COVID-19 (JENNIFER) (Negative) COVID-19 Clin Com 11/04/20 11/04/20 Range/Units 10:53 10:57 WBC (4.8-10.8) X10*3/uL RBC (4.20-5.50) X10*6/uL Hgb (12.0-16.0) g/dl Hct (37-47) % MCV (80-98) fL MCH (27.0-33.0) pg MCHC (31.0-35.0) g/dl RDW (11.0-16.0) % Plt Count (160-400) X10*3/uL MPV (9.4-12.3) fL Immature Gran % (Auto) (0.0-0.4) % Neut % (Auto) (45-73) % Lymph % (Auto) (20-40) % Josephine % (Auto) (2-11) % Eos % (Auto) (0-4) % Baso % (Auto) (0-2) % Lymph # (Auto) (1.2-4.9) X10*3/uL Josephine # (Auto) (0.1-1.2) X10*3/uL Eos # (Auto) (0.0-0.4) X10*3/uL Baso # (Auto) (0.0-0.2) X10*3/uL Abs Immat Gran (auto) (0.00-0.03) X10*3/uL Absolute Neuts (auto) (2.0-8.3) X10*3/uL Absolute Nucleated RBC (0.0-0.012) X10*3/uL Nucleated RBC % (auto) (0.0-0.2) /100WBC PT (10.8-13.0) SEC INR (0.9-1.1) APTT (24.1-38.0) SEC O2 Saturation 95.0 % ABG pH at Pt Temp 7.28 L (7.35-7.45) ABG pH (Temp Correct) 7.29 L (7.35-7.45) ABG pCO2 at Pt Temp 35 (32-45) mmHg ABG pCO2 (Temp Corrct 34 (32-45) mmHg ABG pO2 at Pt Temp 90 (83-108) mmHg ABG pO2 (Temp Correct 88 (83-108) ABG HCO3 17 L (22-26) mmol/L ABG Base Excess (Actual) -8.5 mmol/L VBG pH (7.32-7.43) VBG pCO2 mmHg VBG pO2 mmHg VBG HCO3 (22-26) mmol/L VBG O2 Saturation % VBG Base Excess mmol/L Sodium (135-145) mmol/L Potassium (3.3-5.1) mmol/L Chloride (96-108) mmol/L Carbon Dioxide (22-29) mmol/L Anion Gap (12-20) BUN (9-16) mg/dL Creatinine (0.5-1.4) mg/dL Estim Creat Clear Calc Estimated GFR Random Glucose (60-115) mg/dL Lactic Acid (0.5-2.0) mmol/L Calcium (8.4-10.2) mg/dL Magnesium (1.6-2.6) mg/dL Total Bilirubin (0.0-1.0) mg/dL Direct Bilirubin (0.0-0.5) mg/dL AST (5-31) U/L ALT (0-31) U/L Alkaline Phosphatase (39-117) U/L Total Creatine Kinase (26-140) U/L Troponin I High Sens (<3.5-17.0) ng/L Total Protein (6.5-8.0) g/dL Albumin (3.5-5.0) g/dL Lipase (8-78) U/L Urine Color Urine Appearance Urine pH (5.0-8.0) Ur Specific [place] (1.005-1.025) Urine Protein (NEG-TRACE) MG/DL Urine Glucose (UA) (NEG) MG/DL Urine Ketones (NEG) MG/DL Urine Blood (NEG) Urine Nitrite (NEG) Ur Leukocyte Esterase (NEG) Ethyl Alcohol < 10 mg/dL COVID-19 (JENNIFER) (Negative) COVID-19 Clin Com ECG Data Attestation: I personally reviewed and interpreted this ECG as follows: ECG interpretation date: 11/04/20 ECG interpretation time: 07:57 Interpretation: Rate: 77 Rhythm: NSR Rufe: normal Normal P waves. Normal MANOJ. RBBB ST T wave : nonspecific, no ROBERTO qTC: normal prior studies: no acute ischemia The study has been interpreted contemporaneously by me. . Discharge Plan Discharge Clinical Impression: Elevated BUN, Lethargic, Metabolic acidosis, Polypharmacy Prescriptions: No Action bupropion HCl 150 mg tablet extended release 24 hr 150 mg PO QAM Qty: 90 RF: 3 albuterol sulfate [ProAir HFA] 90 mcg/actuation HFA aerosol inhaler 2 puff inhalation Q4-6H PRN (Reason: for wheezing) Qty: 8.5 RF: 2 puostqdtscu-thhjdqxih-oxrhvqzw [Trelegy Ellipta] 100-62.5-25 mcg blister with device 1 ea inhalation DAILY Qty: 60 RF: 2 meclizine 25 mg tablet 25 mg PO TID Qty: 90 RF: 3 nitrofurantoin monohyd/m-cryst [Macrobid] 100 mg capsule 100 mg PO BID 7 Days Qty: 14 RF: 0 cholecalciferol (vitamin D3) 125 mcg (5,000 unit) capsule 125 mcg PO DAILY 30 Days Qty: 30 RF: 6 Hold Instructions: pt holding folic acid 1 mg tablet 1 mg PO DAILY Qty: 90 RF: 3 cyanocobalamin (vitamin B-12) 1,000 mcg tablet, sublingual 1,000 mcg sublingual DAILY Qty: 90 RF: 3 vitamin A 2,400 mcg capsule 2,400 mcg PO DAILY Qty: 30 RF: 2 lisinopril 2.5 mg tablet 2.5 mg PO DAILY Qty: 90 RF: 0 pentoxifylline 400 mg tablet extended release 400 mg PO BID Qty: 60 RF: 4 simethicone 125 mg tablet,chewable 125 mg PO QID PRN (Reason: for abdominal pain) Qty: 120 RF: 4 cyanocobalamin (vitamin B-12) 1,000 mcg tablet 2 tab PO DAILY RF: 0 aspirin 81 mg tablet,delayed release (DR/EC) 1 tab PO DAILY RF: 0 otjkgqixny-pcgkzgzfjdtpz-zvia 50-325-40 mg tablet 1 tab PO Q6H PRN (Reason: Pain) RF: 0 gabapentin 300 mg capsule 1 cap PO BID RF: 0 triamterene-hydrochlorothiazid 37.5-25 mg Tablet 1 tab PO DAILY RF: 0 trimethoprim 100 mg tablet 100 mg PO Q12H 5 Days Qty: 10 RF: 0 (DME) FreeStyle Lite Strips Strip See Rx Instructions .ROUTE .MEDSUPPLY Qty: 100 RF: 4 nystatin [Nystop] 100,000 unit/gram powder 1 appl topical TID Qty: 60 RF: 5 topiramate 100 mg tablet 100 mg PO BID RF: 0 zolpidem 10 mg tablet 10 mg PO BEDTIME RF: 0 paroxetine HCl 20 mg tablet 20 mg PO DAILY RF: 0 hydroxyzine HCl 10 mg tablet 10 mg PO BEDTIME RF: 0 clonazepam 1 mg tablet 1 mg PO BEDTIME PRN (Reason: Anxiety) RF: 0 nitroglycerin 0.4 mg tablet, sublingual 0.4 mg sublingual RF: 0 Januvia 100 mg tablet 100 mg PO DAILY Qty: 90 RF: 1 metformin 500 mg tablet 500 mg PO DAILY 90 Days Qty: 90 RF: 2 ezetimibe [Zetia] 10 mg tablet 10 mg PO DAILY 90 Days Qty: 90 RF: 1 Hold Instructions: pt holding rosuvastatin 40 mg tablet 40 mg PO DAILY 90 Days Qty: 90 RF: 2 repaglinide 0.5 mg tablet 0.5 mg PO BID RF: 0 nitrofurantoin macrocrystal 50 mg capsule 50 mg PO BEDTIME 90 Days Qty: 90 RF: 0
[2020-11-04 08:05] LABS: Venous Blood Gas Refer to POC result
[2020-11-04 08:06] LABS: VBG Base Excess -7.2 mmol/L; VBG HCO3 18 mmol/L (22-26); VBG pCO2 38 mmHg; VBG pH 7.28 (7.32-7.43); VBG pO2 48 mmHg
[2020-11-04 08:10] LABS: MANUAL DIFF FLAG NO
[2020-11-04 08:12] LABS: Basophils Absolute Auto 0.1 X10*3/uL (0.0-0.2); Basophils Percent Auto 0.6 % (0-2); Eosinophils Absolute Auto 0.3 X10*3/uL (0.0-0.4); Eosinophils Percent Auto 2.9 % (0-4); Hematocrit 37.2 % (37-47); Hemoglobin 11.5 g/dl (12.0-16.0); Imm Gran Abs Auto 0.04 X10*3/uL (0.00-0.03); Imm Gran Pct Auto 0.4 % (0.0-0.4); Lymphocytes Absolute Auto 1.6 X10*3/uL (1.2-4.9); Lymphocytes Percent Auto 15.3 % (20-40); Mean Corpuscular HGB Conc 30.9 g/dl (31.0-35.0); Mean Corpuscular Hemoglobin 28.1 pg (27.0-33.0); Mean Platelet Volume 11.5 fL (9.4-12.3); Monocytes Absolute Auto 0.6 X10*3/uL (0.1-1.2); Monocytes Percent Auto 6.1 % (2-11); Neutrophils Absolute Auto 7.9 X10*3/uL (2.0-8.3); Neutrophils Percent Auto 74.7 % (45-73); Platelet Count 232 X10*3/uL (160-400); Red Blood Count 4.09 X10*6/uL (4.20-5.50); Red Cell Distribution Width 14.1 % (11.0-16.0); White Blood Count 10.5 X10*3/uL (4.8-10.8)
[2020-11-04 08:24] LABS: Prothrombin Time 12.3 SEC (10.8-13.0)
[2020-11-04 08:27] LABS: Partial Thromboplastin Time 35.6 SEC (24.1-38.0)
[2020-11-04 08:32] LABS: Lactic Acid 1.1 mmol/L (0.5-2.0)
[2020-11-04 08:35] LABS: Anion Gap 15 (12-20); Blood Urea Nitrogen 34 mg/dL (9-16); Calcium 9.7 mg/dL (8.4-10.2); Carbon Dioxide 20 mmol/L (22-29); Chloride 113 mmol/L (96-108); Creatinine Clr Calc Pharmacy 33.5; Estimated Glomerular Filt Rate 40; Glucose Random 123 mg/dL (60-115); Potassium 4.2 mmol/L (3.3-5.1); Sodium 144 mmol/L (135-145)
[2020-11-04 08:36] LABS: COVID-19 Test Negative (Negative)
[2020-11-04 08:38] LABS: Alanine Aminotransferase 13 U/L (0-31); Alkaline Phosphatase 101 U/L (39-117); Aspartate Amino Transferase 29 U/L (5-31); Bilirubin Direct 0.2 mg/dL (0.0-0.5); Bilirubin Total 0.3 mg/dL (0.0-1.0); Calcium 9.8 mg/dL (8.4-10.2); Lipase 40 U/L (8-78); Magnesium 2.2 mg/dL (1.6-2.6); Total Protein 7.3 g/dL (6.5-8.0)
[2020-11-04 08:40] LABS: Troponin-I High Sensitivity < 3.5 ng/L (<3.5-17.0)
[2020-11-04] MEDS: Albuterol Sulfate (0.083%) 2.5 MG/3 ML VIAL.NEB INHALE (08:43)
[2020-11-04] MEDS: 0.9 % Sodium Chloride 500 ML IV ×2 (09:01→09:02)
[2020-11-04] MEDS: 0.9 % Sodium Chloride 1,000 ML 999 ML IVCONT (09:02)
[2020-11-04] MEDS: cefTRIAXone sodium 1 GM in 0.9 % Sodium Chloride 50 ML IV (09:07)
--- NOTE | 2020-11-04 10:24 | PC.NURSE ---
pt states she does not know the names of the medications she takes. She states they should all be in the computer. pt also does not know when she last took any of her medications. EMS reported that her medications were scattered around her room and there were over 50 bottles of various medications, some open and empty. Pt unable to report what pharmacy she uses, she states I use a [facility] pharmacy on [facility]. google search shows no results. Med HX unknown. 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
[2020-11-04 10:37] LABS: Glucose Urine UA NEG (NEG); Leukocyte Esterase Urine NEG (NEG); Nitrite Urine NEG (NEG); Specific Gravity - Urine 1.025 (1.005-1.025); Urine Blood NEG (NEG); Urine Ketones NEG (NEG); Urine Protein NEG (NEG-TRACE)
[2020-11-04 10:40] LABS: Appearance Urine CLEAR; Color Urine YELLOW
[2020-11-04 11:00] LABS: ABG Base Excess -8.5 mmol/L; ABG HCO3 17 mmol/L (22-26); ABG pCO2 35 mmHg (32-45); ABG pCO2 TC 34 mmHg (32-45); ABG pH 7.28 (7.35-7.45); ABG pH TC 7.29 (7.35-7.45); ABG pO2 90 mmHg (83-108); ABG pO2 TC 88 (83-108)
[2020-11-04 11:04] LABS: ABG Refer to POC result
--- NOTE | 2020-11-04 11:22 | PC.NURSE ---
daughter called, states pt has not been compliant with meds, not eating well but has also been using meclizine at home for dizziness and may have taken too many at once
[2020-11-04 11:26] LABS: Ethanol < 10 mg/dL
[2020-11-04 11:30] LABS: Amphetamine Screen Urine Not Detected (Not Detect); Barbiturates, Urine Not Detected (Not Detect); Benzodiazepines Screen Urine POSITIVE (Not Detect); Cannabinoid Screen Urine Not Detected (Not Detect); Cocaine Screen Urine Not Detected (Not Detect); Opiate Screen Urine Not Detected (Not Detect); Phencyclidine Screen Urine Not Detected (Not Detect)
[2020-11-04 11:33] LABS: Ammonia 28 umol/L (13-55)
--- NOTE | 2020-11-04 13:21 | P.HPHOSP_ITS ---
History of Present Illness Date of Service: 11/04/20 <Cammie Bejarano NP - Last Filed: 11/04/20 14:43> Chief Complaint: Fall <Cammie Bejarano NP - Last Filed: 11/04/20 14:43> Dizziness and falls. Patient told him it was vertigo. He stated that she takes alot of medications but he doesnt know if she was taking more than she was supposed to. She lives with a roomate who found her on the floor today and was unable to get her up therefore he called EMS. The patient was able to state the year, place, name and month. She did not state that she felt more confused but she did state that she has been having more falls because of leg weakness. She denied loss of consciousness, chest pain, shortness of breath, headache, visual changes. It is not exactly known at this point if she was taking more medic ations than she should have as she states that she did not and when EMS found multiple pill bottles and pills on the floor she stated that she was trying to combined like pills in the same bottles and everything fell to the ground. In the ER, pH from ABG was noted to be 7.29, bicarb 20, normal ammonia, normal troponin. Negative urinalysis, alcohol level less than 10, negative COVID-19. Multiple imaging studies including cervical spine CT, chest CT, head CT, wrist x-ray all negative for any acute abnormalities. She was given IV fluids, albuterol, 1 dose of Rocephin in the ED. She will be admitted for toxic metabolic encephalopathy. <Cammie Bejarano NP - Last Filed: 11/04/20 14:43> Review of Systems Review of Systems: Denies any recent fever chills or decrease in appetite respiratory denies any shortness of breath coverage production cardiovascular is adjustment of any PND or edema gastrointestinal denies any dysphagia abdominal pain nausea vomiting or diarrh ea genitourinary denies any dysuria frequency or hematuria musculoskeletal denies any joint pain or swelling neuropsych denies any weakness or seizures all other systems reviewed are negative <Cammie Bejarano NP - Last Filed: 11/04/20 14:43> [facility] Medical History: Medical History Anxiety Bladder cancer CAD (coronary artery disease) Cervical stenosis of spine COPD (chronic obstructive pulmonary disease) Depression Diabetic polyneuropathy associated with type 2 diabetes mellitus HTN (hypertension) Hyperlipidemia Low vitamin D level Migraine headache Nonalcoholic steatohepatitis (CHRISTINE) Pulmonary nodule Vertigo Vitamin B12 deficiency <Cammie Bejarano NP - Last Filed: 11/04/20 14:43> Family History: Family History Mother CVD (cardiovascular disease) CVA (cerebral vascular accident) Father CVD (cardiovascular disease) <Cammie Bejarano NP - Last Filed: 11/04/20 14:43> Surgical History: Surgical History Fusion of spine of cervical region History of carpal tunnel release History of hysterectomy <Cammie Bejarano NP - Last Filed: 11/04/20 14:43> Social History: Social History (Updated 11/04/20 @ 13:48 by Cammie Bejarano NP) Household Members: Friend(s) Housing: Unknown / Unable to assess Alcohol intake: never Patient Tobacco Use Status: Current everyday Tobacco user Cigarettes Per Day: 20 Advance Directives Date on File: 11/05/20 service: No Current occupational status: retired Current 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: Right 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 <Cammie Bejarano NP - Last Filed: 11/04/20 14:43> Meds Allergies/Adverse reactions: Allergies Allergy/AdvReac Type Severity Reaction Status Date / Time amoxicillin [AMOXICILLIN] Allergy Mild DIARRHEA Verified 10/05/20 12:19 Darvocet A500 Allergy Unknown upset Verified 10/05/20 12:19 stomach melatonin Allergy Unknown Nausea and Verified 10/05/20 12:19 Vomiting oxycodone [From PERCOCET] Allergy Unknown NAUSEA,VOMI Verified 10/05/20 12:19 TING Propoxyphene HCl Allergy Unknown upset Verified 10/05/20 12:19 stomach influenza virus vaccine, AdvReac Intermediate NAUSEA,DIAR Verified 10/05/20 12:19 specific WU [FLU VACCINE] Iodinated Contrast Media AdvReac Intermediate NAUSEA,DIZZINESS,CHEST Verified 10/05/20 12:19 [IV CONTRAST] PRESSURE lactose [LACTOSE] AdvReac Intermediate GI UPSET Verified 10/05/20 12:19 metronidazole [From FLAGYL] AdvReac Intermediate NAUSEA & Verified 10/05/20 12:19 VOMITING Sulfa (Sulfonamide AdvReac Intermediate EYE DROPS Verified 10/05/20 12:19 Antibiotics) (ONLY)-IRITIS <Cammie Bejarano NP - Last Filed: 11/04/20 14:43> Home medications: Home Medications Medication Instructions Recorded Confirmed Last Taken Type aspirin 1 tab PO DAILY 03/08/20 11/04/20 11/03/20 History [id number] 1 tab PO Q6H PRN 03/08/20 11/04/20 Unknown History cyanocobalamin (vitamin B-12) 2 tab PO DAILY 03/08/20 11/04/20 Unknown History gabapentin 1 cap PO BID 03/08/20 11/04/20 11/03/20 History triamterene-hydrochlorothiazid 1 tab PO DAILY 03/08/20 08/14/20 Unknown History topiramate 100 mg tablet 100 mg PO BID 04/18/20 11/04/20 11/03/20 History zolpidem 10 mg tablet 10 mg PO BEDTIME 04/18/20 11/04/20 11/03/20 History clonazepam 1 mg tablet 1 mg PO BEDTIME PRN 07/16/20 11/04/20 11/03/20 History hydroxyzine HCl 10 mg tablet 10 mg PO BEDTIME 07/16/20 11/04/20 11/03/20 History nitroglycerin 0.4 mg sublingual 0.4 mg SUBLINGUAL 07/16/20 08/14/20 Unknown History tablet paroxetine HCl 20 mg tablet 20 mg PO DAILY 07/16/20 11/04/20 11/03/20 History repaglinide 0.5 mg tablet 0.5 mg PO BID 10/03/20 11/04/20 Unknown History <Cammie Bejarano NP - Last Filed: 11/04/20 14:43> Physical Exam Vital Signs and Narrative: Vital Signs: Last Vital Signs Temp 98.3 F 11/04/20 07:38 Pulse 90 11/04/20 10:29 Resp 16 11/04/20 10:29 BP 125/54 L 11/04/20 10:29 Pulse Ox 96 11/04/20 10:29 Body Mass Index 26.7 <Cammie Bejarano NP - Last Filed: 11/04/20 14:43> Appearing in no acute distress head is normocephalic atraumatic eyes pupils are PERRLA sclera is anicteric mouth throat mucous membranes are intact and moist neck is supple no lymphadenopathy, no JVD noted lung sounds are clear to auscultation heart regular rate rhythm, clear S1, S2 positive bowel sounds, abdomen is soft, nontender neuro patient is alert x3, no focal deficits <Cammie Bejarano NP - Last Filed: 11/04/20 14:43> Results Labs CBC and Chem 7: : 11/05/20 06:19 11/05/20 06:19 <Cammie Bejarano PROGRAM COUNSELOR - Last Filed: 11/04/20 14:43> Labs: Laboratory Results - last 24 hr 11/04/20 11/04/20 11/04/20 07:58 07:58 07:58 MCV 91.0 MCH 28.1 MCHC 30.9 L RDW 14.1 Plt Count 232 MPV 11.5 Immature Gran % (Auto) 0.4 Neut % (Auto) 74.7 H Lymph % (Auto) 15.3 L [place] % (Auto) 6.1 Eos % (Auto) 2.9 Baso % (Auto) 0.6 Lymph # (Auto) 1.6 [place] # (Auto) 0.6 Eos # (Auto) 0.3 Baso # (Auto) 0.1 Abs Immat Gran (auto) 0.04 H Absolute Neuts (auto) 7.9 Absolute Nucleated RBC 0.000 Nucleated RBC % (auto) 0.0 PT INR APTT O2 Saturation ABG pH at Pt Temp ABG pH (Temp Correct) ABG pCO2 at Pt Temp ABG pCO2 (Temp Corrct ABG pO2 at Pt Temp ABG pO2 (Temp Correct ABG HCO3 ABG Base Excess (Actual) VBG pH VBG pCO2 VBG pO2 VBG HCO3 VBG O2 Saturation VBG Base Excess Anion Gap 15 Estim Creat Clear Calc 33.5 Estimated GFR 40 Random Glucose 123 H Lactic Acid Calcium 9.7 D Magnesium Total Bilirubin Direct Bilirubin AST ALT Alkaline Phosphatase Ammonia Total Creatine Kinase Troponin I High Sens Total Protein Albumin Lipase Urine Color Urine Appearance Urine pH Ur Specific [place] Urine Protein Urine Glucose (UA) Urine Ketones Urine Blood Urine Nitrite Ur Leukocyte Esterase Urine Opiates Screen Ur Barbiturates Screen Ur Phencyclidine Scrn Ur Amphetamines Screen U Benzodiazepines Scrn Urine Cocaine Screen U Marijuana (THC) Screen Ethyl Alcohol COVID-19 (JENNIFER) Negative COVID-19 Clin Com See Note 11/04/20 11/04/20 11/04/20 07:58 07:58 07:58 MCV MCH MCHC RDW Plt Count MPV Immature Gran % (Auto) Neut % (Auto) Lymph % (Auto) [place] % (Auto) Eos % (Auto) Baso % (Auto) Lymph # (Auto) [place] # (Auto) Eos # (Auto) Baso # (Auto) Abs Immat Gran (auto) Absolute Neuts (auto) Absolute Nucleated RBC Nucleated RBC % (auto) PT 12.3 INR 1.0 APTT 35.6 O2 Saturation ABG pH at Pt Temp ABG pH (Temp Correct) ABG pCO2 at Pt Temp ABG pCO2 (Temp Corrct ABG pO2 at Pt Temp ABG pO2 (Temp Correct ABG HCO3 ABG Base Excess (Actual) VBG pH VBG pCO2 VBG pO2 VBG HCO3 VBG O2 Saturation VBG Base Excess Anion Gap Estim Creat Clear Calc Estimated GFR Random Glucose Lactic Acid Calcium 9.8 Magnesium 2.2 Total Bilirubin 0.3 Direct Bilirubin 0.2 AST 29 ALT 13 Alkaline Phosphatase 101 Ammonia Total Creatine Kinase 85 Troponin I High Sens < 3.5 Total Protein 7.3 Albumin 4.0 Lipase 40 Urine Color Urine Appearance Urine pH Ur Specific [place] Urine Protein Urine Glucose (UA) Urine Ketones Urine Blood Urine Nitrite Ur Leukocyte Esterase Urine Opiates Screen Ur Barbiturates Screen Ur Phencyclidine Scrn Ur Amphetamines Screen U Benzodiazepines Scrn Urine Cocaine Screen U Marijuana (THC) Screen Ethyl Alcohol COVID-19 (JENNIFER) COVID-19 ViRTUAL INTERACTiVE Com 11/04/20 11/04/20 11/04/20 07:59 07:59 10:14 MCV MCH MCHC RDW Plt Count MPV Immature Gran % (Auto) Neut % (Auto) Lymph % (Auto) [place] % (Auto) Eos % (Auto) Baso % (Auto) Lymph # (Auto) [place] # (Auto) Eos # (Auto) Baso # (Auto) Abs Immat Gran (auto) Absolute Neuts (auto) Absolute Nucleated RBC Nucleated RBC % (auto) PT INR APTT O2 Saturation ABG pH at Pt Temp ABG pH (Temp Correct) ABG pCO2 at Pt Temp ABG pCO2 (Temp Corrct ABG pO2 at Pt Temp ABG pO2 (Temp Correct ABG HCO3 ABG Base Excess (Actual) VBG pH 7.28 L VBG pCO2 38 VBG pO2 48 VBG HCO3 18 L VBG O2 Saturation 74.0 VBG Base Excess -7.2 Anion Gap Estim Creat Clear Calc Estimated GFR Random Glucose Lactic Acid 1.1 Calcium Magnesium Total Bilirubin Direct Bilirubin AST ALT Alkaline Phosphatase Ammonia Total Creatine Kinase Troponin I High Sens Total Protein Albumin Lipase Urine Color YELLOW Urine Appearance CLEAR Urine pH 6.0 Ur Specific [place] 1.025 Urine Protein NEG Urine Glucose (UA) NEG Urine Ketones NEG Urine Blood NEG Urine Nitrite NEG Ur Leukocyte Esterase NEG Urine Opiates Screen Ur Barbiturates Screen Ur Phencyclidine Scrn Ur Amphetamines Screen U Benzodiazepines Scrn Urine Cocaine Screen U Marijuana (THC) Screen Ethyl Alcohol COVID-19 (JENNIFER) COVID-19 Clin Com 11/04/20 11/04/20 11/04/20 10:14 10:53 10:57 MCV MCH MCHC RDW Plt Count MPV Immature Gran % (Auto) Neut % (Auto) Lymph % (Auto) [place] % (Auto) Eos % (Auto) Baso % (Auto) Lymph # (Auto) [place] # (Auto) Eos # (Auto) Baso # (Auto) Abs Immat Gran (auto) Absolute Neuts (auto) Absolute Nucleated RBC Nucleated RBC % (auto) PT INR APTT O2 Saturation 95.0 ABG pH at Pt Temp 7.28 L ABG pH (Temp Correct) 7.29 L ABG pCO2 at Pt Temp 35 ABG pCO2 (Temp Corrct 34 ABG pO2 at Pt Temp 90 ABG pO2 (Temp Correct 88 ABG HCO3 17 L ABG Base Excess (Actual) -8.5 VBG pH VBG pCO2 VBG pO2 VBG HCO3 VBG O2 Saturation VBG Base Excess Anion Gap Estim Creat Clear Calc Estimated GFR Random Glucose Lactic Acid Calcium Magnesium Total Bilirubin Direct Bilirubin AST ALT Alkaline Phosphatase Ammonia 28 Total Creatine Kinase Troponin I High Sens Total Protein Albumin Lipase Urine Color Urine Appearance Urine pH Ur Specific [place] Urine Protein Urine Glucose (UA) Urine Ketones Urine Blood Urine Nitrite Ur Leukocyte Esterase Urine Opiates Screen Not Detected Ur Barbiturates Screen Not Detected Ur Phencyclidine Scrn Not Detected Ur Amphetamines Screen Not Detected U Benzodiazepines Scrn POSITIVE H Urine Cocaine Screen Not Detected U Marijuana (THC) Screen Not Detected Ethyl Alcohol COVID-19 (JENNIFER) COVID-19 Clin Com 11/04/20 10:57 MCV MCH MCHC RDW Plt Count MPV Immature Gran % (Auto) Neut % (Auto) Lymph % (Auto) [place] % (Auto) Eos % (Auto) Baso % (Auto) Lymph # (Auto) [place] # (Auto) Eos # (Auto) Baso # (Auto) Abs Immat Gran (auto) Absolute Neuts (auto) Absolute Nucleated RBC Nucleated RBC % (auto) PT INR APTT O2 Saturation ABG pH at Pt Temp ABG pH (Temp Correct) ABG pCO2 at Pt Temp ABG pCO2 (Temp Corrct ABG pO2 at Pt Temp ABG pO2 (Temp Correct ABG HCO3 ABG Base Excess (Actual) VBG pH VBG pCO2 VBG pO2 VBG HCO3 VBG O2 Saturation VBG Base Excess Anion Gap Estim Creat Clear Calc Estimated GFR Random Glucose Lactic Acid Calcium Magnesium Total Bilirubin Direct Bilirubin AST ALT Alkaline Phosphatase Ammonia Total Creatine Kinase Troponin I High Sens Total Protein Albumin Lipase Urine Color Urine Appearance Urine pH Ur Specific [place] Urine Protein Urine Glucose (UA) Urine Ketones Urine Blood Urine Nitrite Ur Leukocyte Esterase Urine Opiates Screen Ur Barbiturates Screen Ur Phencyclidine Scrn Ur Amphetamines Screen U Benzodiazepines Scrn Urine Cocaine Screen U Marijuana (THC) Screen Ethyl Alcohol < 10 COVID-19 (JENNIFER) COVID-19 Clin Com <Cammie Bejarano PROGRAM COUNSELOR - Last Filed: 11/04/20 14:43> Imaging Radiologist's Impressions: Impressions Cervical Spine CT 11/04/20 07:38 IMPRESSION: No acute intracranial process seen. Age-related cerebral atrophy with chronic small vessel microangiopathy. Rotatory subluxation C1-C2 disc level. No acute fracture seen. There is C4-C5, C5-C6 disc prosthesis for fusion stabilized by ventral plate and screws. Degenerative disc changes cervical spine. Centrilobular emphysema with small pulmonary nodules. The left lower lobe subpleural nodule measuring 5 mm is approximately 6 mm on the present exam the T11 nodule left lower lobe superior segment is stable. 3 mm small nodules adjacent to each other in right lower lobe appear new. Recommend follow-up as per Fleischner guidelines in 18-24 months. No contusion or consolidation seen. Chest CT 11/04/20 07:38 IMPRESSION: No acute intracranial process seen. Age-related cerebral atrophy with chronic small vessel microangiopathy. Rotatory subluxation C1-C2 disc level. No acute fracture seen. There is C4-C5, C5-C6 disc prosthesis for fusion stabilized by ventral plate and screws. Degenerative disc changes cervical spine. Centrilobular emphysema with small pulmonary nodules. The left lower lobe subpleural nodule measuring 5 mm is approximately 6 mm on the present exam the T11 nodule left lower lobe superior segment is stable. 3 mm small nodules adjacent to each other in right lower lobe appear new. Recommend follow-up as per Fleischner guidelines in 18-24 months. No contusion or consolidation seen. Head CT 11/04/20 07:38 IMPRESSION: No acute intracranial process seen. Age-related cerebral atrophy with chronic small vessel microangiopathy. Rotatory subluxation C1-C2 disc level. No acute fracture seen. There is C4-C5, C5-C6 disc prosthesis for fusion stabilized by ventral plate and screws. Degenerative disc changes cervical spine. Centrilobular emphysema with small pulmonary nodules. The left lower lobe subpleural nodule measuring 5 mm is approximately 6 mm on the present exam the T11 nodule left lower lobe superior segment is stable. 3 mm small nodules adjacent to each other in right lower lobe appear new. Recommend follow-up as per Fleischner guidelines in 18-24 months. No contusion or consolidation seen. Wrist X-Ray 11/04/20 07:51 IMPRESSION: Normal left wrist. <Cammie Bejarano NP - Last Filed: 11/04/20 14:43> Assessment and Plan (1) Metabolic acidosis: Status: Acute <Cammie Bejarano NP - Last Filed: 11/04/20 14:43> 70 year old women admitted with toxic metabolic encephalopathy possibly related to polypharmacy as patient is on multiple medications and EMS found multiple pill bottles and pills strewn about. Patient reported that she had fallen and everything fell and that she does not recall taking extra medications. Toxic metabolic encephalopathy. Possibly secondary to polypharmacy. Patient denies this and her son is unsure of how she is taking her medications no infectious source - will hold medications for now - follow mental status Falls. secondary to weakness - physical therapy consultation, may need short-term rehab Psychiatric. - hold medications that may cause confusion Hypertension. Stable blood pressure - continue lisinopril COPD. No exacerbation - albuterol as needed Diabetes mellitus - sliding scale, ADA diet CAD. Aspirin and statin Smoker. discussed importance of smoking cessation - NRT DVT prophylaxis with Lovenox Attending: Dr. Kerr Full code <Cammie Bejarano NP - Last Filed: 11/04/20 14:43> Quality Stroke Does the patient have a stroke diagnosis?: No <Cammie Bejarano NP - Last Filed: 11/04/20 14:43> VTE Prior VTE?: No <Cammie Bejarano NP - Last Filed: 11/04/20 14:43> VTE Risk Level:: Medical - moderate - high <Cammie Bejarano NP - Last Filed: 11/04/20 14:43> VTE Device Contraindication: Treatment Not Indicated <Cammie Bejarano NP - Last Filed: 11/04/20 14:43> VTE Drug Contraindication: N/A - Med Ordered <Cammie Bejarano NP - Last Filed: 11/04/20 14:43>
--- NOTE | 2020-11-04 13:59 | PC.NURSE ---
pt has been incontinent of moderate amount of urine and stool.
--- NOTE | 2020-11-04 14:02 | PC.NURSE ---
pt unable to ambulate, she has been having difficult rolling herself from side to side in bed and has neded assistance from nursing staff. She was able to ask for a bedpan after her incontinent episode and had a small BM with no urine.
[2020-11-04] MEDS: 0.9 % Sodium Chloride Flush 3 ML SYRINGE IVFLUSH (15:55)
[2020-11-04 16:19] LABS: Glucose, Whole Blood 70 mg/dL (60-115)
[2020-11-04 16:55] LABS: Potassium Urine Random 26.9 mmol/L
[2020-11-04 21:50] LABS: Glucose, Whole Blood 71 mg/dL (60-115)
[2020-11-04] MEDS: Topiramate 100 MG TABLET PO (21:50)
[2020-11-04] MEDS: hydrOXYzine HCL 10 MG TABLET PO (21:50)
[2020-11-04] MEDS: Pentoxifylline ER 400 MG TABLET.ER PO (21:50)
[2020-11-04] MEDS: Gabapentin 300 MG CAPSULE PO (21:50)
[2020-11-05] VITALS (9 sets, daily range): BP systolic 116–158; BP diastolic 56–72; PULSE 68–86; RESP 17–20; TEMP 36.2–37.1; O2SAT 92–98
[2020-11-05] MEDS: 0.9 % Sodium Chloride Flush 3 ML SYRINGE IVFLUSH ×3 (00:15→21:58)
[2020-11-05 06:40] LABS: MANUAL DIFF FLAG NO
[2020-11-05 06:50] LABS: Basophils Percent Auto 0.5 % (0-2); Eosinophils Absolute Auto 0.2 X10*3/uL (0.0-0.4); Eosinophils Percent Auto 2.3 % (0-4); Hematocrit 36.6 % (37-47); Hemoglobin 11.3 g/dl (12.0-16.0); Imm Gran Abs Auto 0.02 X10*3/uL (0.00-0.03); Imm Gran Pct Auto 0.2 % (0.0-0.4); Lymphocytes Absolute Auto 2.7 X10*3/uL (1.2-4.9); Mean Corpuscular HGB Conc 30.9 g/dl (31.0-35.0); Mean Corpuscular Hemoglobin 27.8 pg (27.0-33.0); Mean Corpuscular Volume 90.1 fL (80-98); Mean Platelet Volume 11.5 fL (9.4-12.3); Monocytes Absolute Auto 0.7 X10*3/uL (0.1-1.2); Monocytes Percent Auto 8.2 % (2-11); Neutrophils Absolute Auto 4.5 X10*3/uL (2.0-8.3); Neutrophils Percent Auto 55.8 % (45-73); Platelet Count 208 X10*3/uL (160-400); Red Blood Count 4.06 X10*6/uL (4.20-5.50); Red Cell Distribution Width 13.9 % (11.0-16.0); White Blood Count 8.1 X10*3/uL (4.8-10.8)
[2020-11-05 07:13] LABS: Glucose, Whole Blood 76 mg/dL (60-115)
[2020-11-05 07:15] LABS: Anion Gap 9 (12-20); Blood Urea Nitrogen 23 mg/dL (9-16); Calcium 8.9 mg/dL (8.4-10.2); Carbon Dioxide 22 mmol/L (22-29); Chloride 116 mmol/L (96-108); Creatinine Clr Calc Pharmacy 47.9; Estimated Glomerular Filt Rate > 60; Glucose Random 72 mg/dL (60-115); Potassium 3.9 mmol/L (3.3-5.1); Sodium 143 mmol/L (135-145)
[2020-11-05] MEDS: Folic Acid 1 MG TABLET PO (10:05)
[2020-11-05] MEDS: Ezetimibe 10 MG TABLET PO (10:05)
[2020-11-05] MEDS: Cholecalciferol (Vitamin D3) 25 MCG TABLET 125 MCG PO (10:05)
[2020-11-05] MEDS: Pentoxifylline ER 400 MG TABLET.ER PO (10:05)
[2020-11-05] MEDS: Atorvastatin Calcium 80 MG TABLET PO (10:06)
[2020-11-05] MEDS: lisinopriL 2.5 MG TABLET PO (10:07)
[2020-11-05] MEDS: Gabapentin 300 MG CAPSULE PO ×2 (10:07→21:57)
[2020-11-05] MEDS: PARoxetine HCL 20 MG TABLET PO (10:07)
[2020-11-05] MEDS: buPROPion HCl XL 150 MG TAB.ER.24H PO (10:07)
[2020-11-05] MEDS: Aspirin Enteric Coated 81 MG TABLET.DR PO (10:07)
[2020-11-05] MEDS: Topiramate 100 MG TABLET PO ×2 (10:08→21:57)
[2020-11-05] MEDS: Cyanocobalamin (Vitamin B-12) 1,000 MCG TABLET 1000 MCG PO (10:08)
[2020-11-05 10:57] LABS: Glucose, Whole Blood 106 mg/dL (60-115)
--- NOTE | 2020-11-05 12:01 | MHC.CM.PN ---
Addendum entered by Ellie Torres 11/05/20 14:18: CM MET WITH PT TO DISCUSS DC PLANS. PT IS AWARE HER PT EVAL INDICATED HOME WITH PT VS STR. SHE IS AGREEABLE TO REFERRALS FOR BOTH SERVICES AND WILL DECIDE TOMORROW DEPENDING ON HOW SHE IS FEELING. REFERRALS MADE TO [facility] AND [facility]. Original Note: CM MET WITH PT WHO REPORTS SHE LIVES WITH A HOUSE MATE AND IS INDEPENDENT WITH CARE AND MOBILITY AT BASELINE. PT REPORTS SHE HAS A NEBULIZER AND BED RAILS AT HOME AND NO HOME SERVICES. PT HAS A HCP AND PCP ON FILE SHE CONFIRMS ARE ACCURATE. HER HCP NAMES HER SON. FROY LI ([phone]) AND HER PCP IS JORDAN CHAMPION. IMM DELIVERED CURRENT DC PLAN IS HOME WITH PT VS STR TRANSPORT TBD BY DISPOSITION
[2020-11-05] MEDS: Acetaminophen 325 MG TABLET 650 MG PO (12:50)
[2020-11-05] MEDS: 0.9 % Sodium Chloride 1,000 ML 100 ML IVCONT ×2 (12:51→22:05)
--- NOTE | 2020-11-05 14:55 | P.PNIM_ITS ---
Subjective Subjective Date of Service: 11/05/20 Interval History: complaining of pain in coccyx area, also complain of pain in back of head, denies lightheadedness dizziness no nausea no vomiting, no other acute issues overnight. ROS general no fever no chills CVS no chest pain, no palpitation respiratory no cough, no shortness of breath GI no nausea, no vomiting, no diarrhea Physical Exam Vital Signs: Vital Signs: Last Vital Signs Temp 97.2 F 11/05/20 11:59 Pulse 82 11/05/20 11:59 Resp 18 11/05/20 11:59 BP 116/56 L 11/05/20 11:59 Pulse Ox 98 11/05/20 11:59 Body Mass Index 26.7 General no acute distress. Neck is supple no JVD. CVS regular rate rhythm, Respiratory lungs clear to auscultation, no respiratory distress, no wheeze, no rhonchi. Gastrointestinal abdomen soft, nontender, bowel sounds audible, no guarding , no rigidity. Extremities multiple upper arm bruises. Neuro nonfocal Skin no rash psych appropriate affect Objective Data Current Medications Generic Name Dose Route Start Last Admin Trade Name Freq PRN Reason Stop Dose Admin Acetaminophen 650 mg 11/04/20 13:20 11/05/20 12:50 Acetaminophen 325 Mg Tablet PO 650 mg Q6H PRN Administration Pain, Mild (Pain Scale 1-3) Acetaminophen/Butalbital/Caffeine 1 tab 11/04/20 14:40 Butalb/Acetamin/Caff 50/325/40 Tablet PO Q6H PRN Pain Albuterol Sulfate 2 puff 11/04/20 14:40 Albuterol Sulfate 90 Mcg 8 Gm Inhaler INHALE Q4H PRN for wheezing Aspirin 81 mg 11/05/20 09:00 11/05/20 10:07 Aspirin Enteric Coated 81 Mg Tablet.Dr PO 81 mg DAILY ALEXANDRE Administration Atorvastatin Calcium 80 mg 11/05/20 09:00 11/05/20 10:06 Atorvastatin Calcium 80 Mg Tablet PO 80 mg DAILY ALEXANDRE Administration Bupropion HCl 150 mg 11/05/20 09:00 11/05/20 10:07 Bupropion Hcl Xl 150 Mg Tab.Er.24h PO 150 mg DAILY ALEXANDRE Administration Cyanocobalamin 1,000 mcg 11/05/20 09:00 11/05/20 10:08 Cyanocobalamin (Vitamin B-12) 1,000 Mcg Tablet PO 1,000 mcg DAILY ALEXANDRE Administration Ezetimibe 10 mg 11/05/20 09:00 11/05/20 10:05 Ezetimibe 10 Mg Tablet PO 10 mg DAILY ALEXANDRE Administration Folic Acid 1 mg 11/05/20 09:00 11/05/20 10:05 Folic Acid 1 Mg Tablet PO 1 mg DAILY ALEXANDRE Administration Gabapentin 300 mg 11/04/20 21:00 11/05/20 10:07 Gabapentin 300 Mg Capsule PO 300 mg BID ALEXANDRE Administration Hydroxyzine HCl 10 mg 11/04/20 21:00 11/04/20 21:50 Hydroxyzine Hcl 10 Mg Tablet PO 10 mg BEDTIME ALEXANDRE Administration Sodium Chloride 1,000 mls @ 100 mls/hr 11/05/20 12:30 11/05/20 12:51 Ns IVCONT 100 mls/hr .Q10H ALEXANDRE Administration Insulin Human Lispro 0 unit 11/04/20 16:30 11/05/20 12:51 Insulin Lispro 100 Unit/Ml 3 Ml Vial SUBCUT Not Given QIDACHS [facility] Protocol Lidocaine 1 patch 11/05/20 14:15 Lidocaine 4 % Patch Adh..Patch TRANSDERMA DAILY [facility] Protocol Ondansetron HCl 4 mg 11/04/20 13:20 Ondansetron Hcl 4 Mg/2 Ml Vial IVPUSH Q8H PRN Nausea and Vomiting Paroxetine HCl 20 mg 11/05/20 09:00 11/05/20 10:07 Paroxetine Hcl 20 Mg Tablet PO 20 mg DAILY ALEXANDRE Administration Simethicone 80 mg 11/04/20 14:51 Simethicone 80 Mg Tab.Chew PO QID PRN for abdominal pain Sodium Chloride 3 ml 11/04/20 16:00 11/05/20 10:04 0.9 % Sodium Chloride Flush 3 Ml Syringe IVFLUSH 3 ml QSHIFT ALEXANDRE Administration Topiramate 100 mg 11/04/20 21:00 11/05/20 10:08 Topiramate 100 Mg Tablet PO 100 mg BID ALEXANDRE Administration Vitamin D 125 mcg 11/05/20 09:00 11/05/20 10:05 Cholecalciferol (Vitamin D3) 25 Mcg Tablet PO 125 mcg DAILY ALEXANDRE Administration Labs CBC & Chem 7: 11/05/20 06:19 11/05/20 06:19 Labs: Laboratory Results - last 24 hr 11/04/20 11/04/20 11/04/20 16:15 16:25 21:46 WBC RBC Hgb Hct MCV MCH MCHC RDW Plt Count MPV Immature Gran % (Auto) Neut % (Auto) Lymph % (Auto) [place] % (Auto) Eos % (Auto) Baso % (Auto) Lymph # (Auto) [place] # (Auto) Eos # (Auto) Baso # (Auto) Abs Immat Gran (auto) Absolute Neuts (auto) Absolute Nucleated RBC Nucleated RBC % (auto) Sodium Potassium Chloride Carbon Dioxide Anion Gap BUN Creatinine Estim Creat Clear Calc Estimated GFR POC Glucose 70 71 Random Glucose Calcium Ur Random Sodium 125.0 Ur Random Potassium 26.9 Ur Random Chloride 129.0 11/05/20 11/05/20 11/05/20 06:19 06:19 07:06 WBC 8.1 RBC 4.06 L Hgb 11.3 L Hct 36.6 L MCV 90.1 MCH 27.8 MCHC 30.9 L RDW 13.9 Plt Count 208 MPV 11.5 Immature Gran % (Auto) 0.2 Neut % (Auto) 55.8 Lymph % (Auto) 33.0 [place] % (Auto) 8.2 Eos % (Auto) 2.3 Baso % (Auto) 0.5 Lymph # (Auto) 2.7 [place] # (Auto) 0.7 Eos # (Auto) 0.2 Baso # (Auto) 0.0 Abs Immat Gran (auto) 0.02 Absolute Neuts (auto) 4.5 Absolute Nucleated RBC 0.000 Nucleated RBC % (auto) 0.0 Sodium 143 Potassium 3.9 Chloride 116 H Carbon Dioxide 22 Anion Gap 9 L BUN 23 H Creatinine 0.91 Estim Creat Clear Calc 47.9 Estimated GFR > 60 POC Glucose 76 Random Glucose 72 D Calcium 8.9 D Ur Random Sodium Ur Random Potassium Ur Random Chloride 11/05/20 10:53 WBC RBC Hgb Hct MCV MCH MCHC RDW Plt Count MPV Immature Gran % (Auto) Neut % (Auto) Lymph % (Auto) [place] % (Auto) Eos % (Auto) Baso % (Auto) Lymph # (Auto) [place] # (Auto) Eos # (Auto) Baso # (Auto) Abs Immat Gran (auto) Absolute Neuts (auto) Absolute Nucleated RBC Nucleated RBC % (auto) Sodium Potassium Chloride Carbon Dioxide Anion Gap BUN Creatinine Estim Creat Clear Calc Estimated GFR POC Glucose 106 Random Glucose Calcium Ur Random Sodium Ur Random Potassium Ur Random Chloride Microbiology Microbiology Results: Microbiology 11/04/20 08:04 Blood Culture - Preliminary Blood - Venous No growth after 24 hours. 11/04/20 08:04 Blood Culture - Preliminary Blood - Venous No growth after 24 hours. Quality Stroke Does the patient have a stroke diagnosis?: No VTE Prior VTE?: No VTE Risk Level:: Medical - moderate - high VTE Device Contraindication: Treatment Not Indicated VTE Drug Contraindication: N/A - Med Ordered Assessment and Plan (1) Acute encephalopathy: Status: Acute (2) Unsteady gait: Status: Acute (3) Orthostatic hypotension: Status: Acute (4) Polypharmacy: Status: Acute (5) Diabetes: Status: Acute (6) Hyperlipidemia: Status: Acute (7) Vitamin B12 deficiency: Status: Acute (8) HTN (hypertension): Status: Acute (9) COPD (chronic obstructive pulmonary disease): Status: Acute Assessment and Plan: 70 year old women admitted with toxic metabolic encephalopathy possibly related to polypharmacy as patient is on multiple medications and EMS found multiple pill bottles and pills strewn about. Patient reported that she had fallen and everything fell and that she does not recall taking extra medications. acute metabolic encephalopathy. Possibly secondary to polypharmacy, normal urinalysis and chest x-ray patient awake alert this morning, will review medications and adjust dosages to minimize side effects, DC Trental, normal TSH, history of low folic acid, B12 likely contributing to confusion continue replacement therapy unsteady gait likely due to orthostatic hypotension will treat with IV fluids discontinue lisinopril and follow blood pressure closely, will follow PT OT recommendation coccyx pain due to fall continue Tylenol, add lidocaine patch history of anxiety and depression continue home medication Hypertension. DC lisinopril secondary to orthostatic blood pressure , follow BP closely COPD. No exacerbation continue albuterol as needed Diabetes mellitus stable blood sugar continue sliding scale, ADA diet CAD. Aspirin and statin DVT prophylaxis with Lovenox
[2020-11-05] MEDS: Lidocaine 4 % Patch ADH..PATCH 1 PATCH TRANSDERMA (15:50)
[2020-11-05 16:04] LABS: Glucose, Whole Blood 114 mg/dL (60-115)
[2020-11-05 20:16] LABS: Glucose, Whole Blood 89 mg/dL (60-115)
[2020-11-05] MEDS: hydrOXYzine HCL 10 MG TABLET PO (21:57)
[2020-11-06] VITALS (8 sets, daily range): BP systolic 112–166; BP diastolic 55–73; PULSE 75–92; RESP 18–20; TEMP 36.3–36.9; O2SAT 92–95
[2020-11-06 07:33] LABS: Glucose, Whole Blood 81 mg/dL (60-115)
[2020-11-06] MEDS: 0.9 % Sodium Chloride 1,000 ML 100 ML IVCONT (08:51)
[2020-11-06] MEDS: 0.9 % Sodium Chloride Flush 3 ML SYRINGE IVFLUSH (08:51)
[2020-11-06] MEDS: PARoxetine HCL 20 MG TABLET PO (08:52)
[2020-11-06] MEDS: Gabapentin 300 MG CAPSULE PO (08:52)
[2020-11-06] MEDS: Ezetimibe 10 MG TABLET PO (08:52)
[2020-11-06] MEDS: Atorvastatin Calcium 80 MG TABLET PO (08:52)
[2020-11-06] MEDS: Cyanocobalamin (Vitamin B-12) 1,000 MCG TABLET 1000 MCG PO (08:53)
[2020-11-06] MEDS: Cholecalciferol (Vitamin D3) 25 MCG TABLET 125 MCG PO (08:53)
[2020-11-06] MEDS: Folic Acid 1 MG TABLET PO (08:53)
[2020-11-06] MEDS: Aspirin Enteric Coated 81 MG TABLET.DR PO (08:53)
[2020-11-06] MEDS: Topiramate 100 MG TABLET PO (08:53)
[2020-11-06] MEDS: buPROPion HCl XL 150 MG TAB.ER.24H PO (08:53)
[2020-11-06] MEDS: Lidocaine 4 % Patch ADH..PATCH 1 PATCH TRANSDERMA (08:56)
[2020-11-06 11:12] LABS: Glucose, Whole Blood 90 mg/dL (60-115)
--- NOTE | 2020-11-06 12:30 | PM.DS ---
DS: Providers Provider Date of Service: 11/06/20 Date of admission: 11/04/20 13:20 Primary care physician: Linda Matthews MD DS: Diagnosis Discharge Diagnosis (1) Acute encephalopathy: Status: Acute (2) Unsteady gait: Status: Acute (3) Orthostatic hypotension: Status: Acute (4) Polypharmacy: Status: Acute (5) Diabetes: Status: Acute (6) Hyperlipidemia: Status: Acute (7) Vitamin B12 deficiency: Status: Acute (8) HTN (hypertension): Status: Acute (9) COPD (chronic obstructive pulmonary disease): Status: Acute Problem details: PFT severe obstruction 04/28, on Trelegy, and Proair , doing well and is holding very stable, DS: Medications Discharge Medications Home Medications: Home Medications Medication Instructions Recorded Confirmed aspirin 1 tab PO DAILY 03/08/20 11/04/20 [id number] 1 tab PO Q6H PRN 03/08/20 11/04/20 cyanocobalamin (vitamin B-12) 2 tab PO DAILY 03/08/20 11/04/20 gabapentin 1 cap PO BID 03/08/20 11/04/20 topiramate 100 mg tablet 100 mg PO BID 04/18/20 11/04/20 clonazepam 1 mg tablet 1 mg PO BEDTIME PRN 07/16/20 11/04/20 hydroxyzine HCl 10 mg tablet 10 mg PO BEDTIME 07/16/20 11/04/20 paroxetine HCl 20 mg tablet 20 mg PO DAILY 07/16/20 11/04/20 Previous Rx's Medication Instructions Recorded bupropion HCl 150 mg 24 hr tablet, 150 mg PO QAM #90 tab 05/18/20 extended release ProAir HFA 90 mcg/actuation 2 puff INHALATION Q4-6H PRN #8.5 g 06/07/20 aerosol inhaler NS fluticasone fur. 100 mcg-umeclid 1 ea INHALATION DAILY #60 cap 08/09/20 62.5 mcg-vilant 25 mcg inhalat.powder ezetimibe 10 mg tablet 10 mg PO DAILY 90 Days #90 tab 08/14/20 metformin 500 mg tablet 500 mg PO DAILY 90 Days #90 tab 08/14/20 rosuvastatin 40 mg tablet 40 mg PO DAILY 90 Days #90 tab 04/06/21 cholecalciferol (vitamin D3) 125 125 mcg PO DAILY 30 Days #30 cap 08/22/20 mcg (5,000 unit) capsule folic acid 1 mg tablet 1 mg PO DAILY #90 tab 08/22/20 vitamin A 2,400 mcg capsule 2,400 mcg PO DAILY #30 cap 09/04/20 simethicone 125 mg chewable tablet 125 mg PO QID PRN #120 ea 10/22/20 zolpidem 10 mg PO NEEDED #0 tab 11/06/20 DS: Summary Hospital Course Hospital Course: history of presenting illness patient presented with Dizziness and falls.She lives with a roomate who found her on the floor today and was unable to get her up therefore he called EMS. The patient was able to state the year, place, name and month. She did not state that she felt more confused but she did state that she has been having more falls because of leg weakness. She denied loss of consciousness, chest pain, shortness of breath, headache, visual changes. It is not exactly known at this point if she was taking more medications than she should have as she states that she did not and when EMS found multiple pill bottles and pills on the floor she stated that she was trying to combined like pills in the same bottles and everything fell to the ground. In the ER, pH from ABG was noted to be 7.29, bicarb 20, normal ammonia, normal troponin. Negative urinalysis, alcohol level less than 10, negative COVID-19. Multiple imaging studies including cervical spine CT, chest CT, head CT, wrist x-ray all negative for any acute abnormalities. She was given IV fluids, albuterol, 1 dose of Rocephin in the ED. She will be admitted for toxic metabolic encephalopathy. <Cammie Bejarano NP - Last Filed: 11/04/20 14:43> hospital course 70 year old women admitted with toxic metabolic encephalopathy possibly related to polypharmacy as patient is on multiple medications and EMS found multiple pill bottles and pills strewn about. Patient reported that she had fallen and everything fell and that she does not recall taking extra medications, workup showed a normal CT head, normal urinalysis and a chest Xray her orthostatic studies were positive therefore she was treated with IV fluids, lisinopril was discontinued, there were adjustment meds in her medications Trental and Januvia was discontinued, she has been recommended to take Ambien at bedtime only as needed for sleep. patient was noted to have unsteady gait therefore is being discharged to acute rehab for continued PT and OT, patient has B12 deficiency, folic acid deficiency likely contributing to neuropathy, question early mild dementia, recommend to follow up folic acid and B12 level in 1 month, due to fall patient complained of coccyx pain continue as needed Tylenol in regard to history of anxiety and depression continue home medication, she had no acute exacerbation of COPD therefore continue home inhalers, patient recent hemoglobin A1c was < 6 therefore recommend to continue metformin and DC Januvia, will continue aspirin and statins with history of coronary artery disease and hyperlipidemia Hypertension. DC lisinopril secondary to orthostatic blood pressure , follow BP closely Time Spent with Patient Time attestation: Total time spent providing and/or coordinating discharge services: Discharge coordination time: Greater than 30 minutes Quality: Stroke Does the patient have a stroke diagnosis?: No Physical Exam Vital Signs: Vital Signs: Last Vital Signs Temp 97.4 F 11/06/20 12:00 Pulse 82 11/06/20 12:00 Resp 20 11/06/20 12:00 BP 119/58 L 11/06/20 12:00 Pulse Ox 94 11/06/20 12:00 Body Mass Index 26.7 General no acute distress. Neck is supple no JVD. CVS regular rate rhythm, Respiratory lungs clear to auscultation, no respiratory distress, no wheeze, no rhonchi. Gastrointestinal abdomen soft, nontender, bowel sounds audible, no guarding , no rigidity. Extremities multiple upper arm bruises. Neuro nonfocal, unsteady gait not wide base, no nystagmus, no cerebellar signs noted Skin no rash psych appropriate affect DS: Data Data Completed and Pending Labs on day of discharge: Laboratory Results - last 24 hr 11/05/20 11/05/20 11/06/20 15:59 20:12 07:03 POC Glucose 114 89 81 11/06/20 10:55 POC Glucose 90 Preliminary micro results at discharge 11/04/20 08:04 Blood Culture - Preliminary Blood - Venous No growth after 48 hours. 11/04/20 08:04 Blood Culture - Preliminary Blood - Venous No growth after 48 hours. Discharge Plan Discharge Patient Disposition: Xfer Inpatient Rehab Fac Discharge Diagnosis: acute encephalopathy orthostatic hypotension unsteady gait polypharmacy diabetes Referrals: Linda Matthews MD [Primary Care Provider] - 1 Week Discharge Medications: Continued bupropion HCl 150 mg tablet extended release 24 hr 150 mg PO QAM Qty: 90 RF: 3 albuterol sulfate [ProAir HFA] 90 mcg/actuation HFA aerosol inhaler 2 puff inhalation Q4-6H PRN (Reason: for wheezing) Qty: 8.5 RF: 2 gowmomhqhfn-stzyxpqwl-ijjciino [Trelegy Ellipta] 100-62.5-25 mcg blister with device 1 ea inhalation DAILY Qty: 60 RF: 2 cholecalciferol (vitamin D3) 125 mcg (5,000 unit) capsule 125 mcg PO DAILY 30 Days Qty: 30 RF: 6 Hold Instructions: pt holding folic acid 1 mg tablet 1 mg PO DAILY Qty: 90 RF: 3 vitamin A 2,400 mcg capsule 2,400 mcg PO DAILY Qty: 30 RF: 2 simethicone 125 mg tablet,chewable 125 mg PO QID PRN (Reason: for abdominal pain) Qty: 120 RF: 4 cyanocobalamin (vitamin B-12) 1,000 mcg tablet 2 tab PO DAILY RF: 0 aspirin 81 mg tablet,delayed release (DR/EC) 1 tab PO DAILY RF: 0 gxigfsqpii-fpebmcstvkzas-uhsq 50-325-40 mg tablet 1 tab PO Q6H PRN (Reason: Pain) RF: 0 gabapentin 300 mg capsule 1 cap PO BID RF: 0 topiramate 100 mg tablet 100 mg PO BID RF: 0 paroxetine HCl 20 mg tablet 20 mg PO DAILY RF: 0 hydroxyzine HCl 10 mg tablet 10 mg PO BEDTIME RF: 0 clonazepam 1 mg tablet 1 mg PO BEDTIME PRN (Reason: Anxiety) RF: 0 metformin 500 mg tablet 500 mg PO DAILY 90 Days Qty: 90 RF: 2 ezetimibe [Zetia] 10 mg tablet 10 mg PO DAILY 90 Days Qty: 90 RF: 1 Hold Instructions: pt holding rosuvastatin 40 mg tablet 40 mg PO DAILY 90 Days Qty: 90 RF: 2 Changed zolpidem 10 mg tablet 10 mg PO NEEDED Qty: 0 RF: 0 Discontinued meclizine 25 mg tablet 25 mg PO TID Qty: 90 RF: 3 lisinopril 2.5 mg tablet 2.5 mg PO DAILY Qty: 90 RF: 0 pentoxifylline 400 mg tablet extended release 400 mg PO BID Qty: 60 RF: 4 Januvia 100 mg tablet 100 mg PO DAILY Qty: 90 RF: 1 nitrofurantoin macrocrystal 50 mg capsule 50 mg PO BEDTIME 90 Days Qty: 90 RF: 0 Discharge Orders: Discharge Order (Routine); Ordered 11/06/20 Ordered By: Jaquan Kerr Diet: diabetic diet and low fat, low cholesterol Activity on Discharge: As tolerated Stand Alone Forms: Patient Portal Discharge page Care Plan Goals: generalized weakness, orthostatic hypotension, diabetes, folic acid deficiency and polypharmacy causing unsteady gait fall, follow blood pressure closely and continue PT OT, CT head showed no acute stroke, no acute infection noted, repeat folic acid level and B12 next month Health Concerns: being discharged to acute rehab for physical therapy and OT Plan of Treatment: close outpatient follow-up with PCP Assessment: sarai acosta
[2020-11-06 12:35] LABS: COVID-19 Test Negative (Negative); IDNOW Serial# 9DD0AD1C
--- NOTE | 2020-11-06 16:01 | PC.NURSE ---
Skin/Wound assessment. Skin tear to left wrist. Xeroform applied to wound cover with gauze and gauze roll. Blanchable pinkness to coccyx. No other skin issues found.
== END 2020-11-06 16:18 | DRG 92 ==
LOC: HO.ED 07:51 → HO.EDOVER 13:26 → HO.IMC 23:00
PROVIDERS: Internal Medicine; Admitting Provider Nurse Practitioner Acute Care; Emergency Provider Emergency Medicine; PCP Internal Medicine; Visit Provider Hospitalist
DX: G92 Toxic encephalopathy (principal); E87.2 Acidosis; I95.1 Orthostatic hypotension; Z20.822 Contact with and (suspected) exposure to COVID-19; J44.9 Chronic obstructive pulmonary disease, unspecified; I10 Essential (primary) hypertension; R29.6 Repeated falls; F41.9 Anxiety disorder, unspecified; F32.9 Major depressive disorder, single episode, unspecified; F17.210 Nicotine dependence, cigarettes, uncomplicated; Z71.6 Tobacco abuse counseling; Z91.81 History of falling; I25.10 Atherosclerotic heart disease of native coronary artery without angina pectoris; G62.9 Polyneuropathy, unspecified; T50.915A Adverse effect of multiple unspecified drugs, medicaments and biological substances, initial encounter; Y92.009 Unspecified place in unspecified non-institutional (private) residence as the place of occurrence of the external cause; Z88.0 Allergy status to penicillin; Z88.2 Allergy status to sulfonamides; Z88.5 Allergy status to narcotic agent; Z79.2 Long term (current) use of antibiotics; Z79.51 Long term (current) use of inhaled steroids; Z79.82 Long term (current) use of aspirin; Z79.84 Long term (current) use of oral hypoglycemic drugs; Z79.899 Other long term (current) drug therapy
CPT/HCPCS: 36415; 70450; 71250; 72125; 73110; 80048; 80076; 80307; 81003; 82077; 82140; 82310; 82436; 82550; 82947; 83605; 83690; 83735; 84133; 84300; 84484; 85025; 85610; 85730; 87040; 87635; 93005; 94640; 97162; 97166; 99285; J0696

== ENCOUNTER 2020-11-29 14:15 | Outpatient (REF) | payer MEDICARE, MEDICAID, SELFPAY ==
[2020-11-29 16:33] LABS: Mean Corpuscular Hemoglobin 26.9 pg (27.0-33.0)
[2020-11-29 16:34] LABS: Hematocrit 38.5 % (37-47); Hemoglobin 11.8 g/dl (12.0-16.0); Mean Corpuscular HGB Conc 30.6 g/dl (31.0-35.0); Mean Corpuscular Volume 87.7 fL (80-98); Platelet Count 228 X10*3/uL (160-400); Red Blood Count 4.39 X10*6/uL (4.20-5.50); Red Cell Distribution Width 14.9 % (11.0-16.0); White Blood Count 10.5 X10*3/uL (4.8-10.8)
[2020-11-29 16:36] LABS: PLT ABN DIST 1
[2020-11-29 16:43] LABS: Estimated Average Glucose 123 mg/dL; Hemoglobin A1C 130.9397 umol/L; Hemoglobin A1c % 5.9 %
[2020-11-29 16:44] LABS: Alanine Aminotransferase 29 U/L (0-31); Albumin Level 4.2 g/dL (3.5-5.0); Alkaline Phosphatase 124 U/L (39-117); Anion Gap 13 (12-20); Aspartate Amino Transferase 43 U/L (5-31); Bilirubin Total 0.4 mg/dL (0.0-1.0); Blood Urea Nitrogen 28 mg/dL (9-16); Calcium 9.6 mg/dL (8.4-10.2); Carbon Dioxide 23 mmol/L (22-29); Chloride 111 mmol/L (96-108); Estimated Glomerular Filt Rate 40; Glucose Random 86 mg/dL (60-115); Potassium 4.1 mmol/L (3.3-5.1); Sodium 143 mmol/L (135-145); Total Protein 7.7 g/dL (6.5-8.0)
[2020-11-29 17:19] LABS: Folate > 20.0 ng/mL (> or = 4.0); Vitamin B12 1274 pg/mL (200-900)
[2020-12-04 13:35] LABS: Vitamin B1 27 nmol/L (8-30)
== END 2020-11-29 14:16 | disposition home or self-care (01) ==
LOC: HO.HMGCLDS 14:15
PROVIDERS: PCP Internal Medicine; Visit Provider Internal Medicine
DX: I25.10 Atherosclerotic heart disease of native coronary artery without angina pectoris (principal); E11.42 Type 2 diabetes mellitus with diabetic polyneuropathy; R79.89 Other specified abnormal findings of blood chemistry; R26.81 Unsteadiness on feet; E53.8 Deficiency of other specified B group vitamins
CPT/HCPCS: 36415; 80053; 82607; 82746; 83036; 84425; 85027

== ENCOUNTER 2020-12-25 09:45 | Outpatient (REF) | payer MEDICARE, OTHER, SELFPAY ==
[2020-12-25 11:23] LABS: MANUAL DIFF FLAG NO
[2020-12-25 11:27] LABS: Basophils Absolute Auto 0.1 X10*3/uL (0.0-0.2); Basophils Percent Auto 0.8 % (0-2); Eosinophils Absolute Auto 0.6 X10*3/uL (0.0-0.4); Eosinophils Percent Auto 6.3 % (0-4); Hematocrit 36.1 % (37-47); Imm Gran Abs Auto 0.03 X10*3/uL (0.00-0.03); Imm Gran Pct Auto 0.3 % (0.0-0.4); Lymphocytes Absolute Auto 2.8 X10*3/uL (1.2-4.9); Mean Corpuscular HGB Conc 30.5 g/dl (31.0-35.0); Mean Corpuscular Volume 88.5 fL (80-98); Mean Platelet Volume 11.3 fL (9.4-12.3); Monocytes Absolute Auto 0.5 X10*3/uL (0.1-1.2); Monocytes Percent Auto 5.6 % (2-11); Neutrophils Absolute Auto 5.3 X10*3/uL (2.0-8.3); Platelet Count 208 X10*3/uL (160-400); Red Blood Count 4.08 X10*6/uL (4.20-5.50); Red Cell Distribution Width 15.5 % (11.0-16.0); White Blood Count 9.3 X10*3/uL (4.8-10.8)
[2020-12-25 11:46] LABS: INTERNATIONAL NORM RATIO 1.1 (0.9-1.1); Prothrombin Time 12.7 SEC (9.9-13.0)
[2020-12-25 12:11] LABS: Alanine Aminotransferase 22 U/L (0-31); Albumin Level 3.9 g/dL (3.5-5.0); Alkaline Phosphatase 128 U/L (39-117); Anion Gap 11 (12-20); Aspartate Amino Transferase 30 U/L (5-31); Bilirubin Total 0.6 mg/dL (0.0-1.0); Blood Urea Nitrogen 15 mg/dL (9-16); Calcium 9.3 mg/dL (8.4-10.2); Carbon Dioxide 25 mmol/L (22-29); Chloride 112 mmol/L (96-108); Estimated Glomerular Filt Rate 49; Glucose Random 97 mg/dL (60-115); Potassium 4.4 mmol/L (3.3-5.1); Sodium 144 mmol/L (135-145); Total Protein 7.3 g/dL (6.5-8.0)
[2020-12-25 12:32] LABS: Ferritin 65 ng/mL (10-250); Vitamin D 25-OH Total 46.3 ng/mL (>30)
[2020-12-25 13:49] LABS: Folate > 20.0 ng/mL (> or = 4.0); Vitamin B12 804 pg/mL (200-900)
[2020-12-29 06:52] LABS: Zinc 74 mcg/dL (60-130)
[2020-12-29 18:17] LABS: Alpha-Tocopherol 29.3 mg/L (5.7-19.9); Beta-Gamma Tocopherol <1.0 mg/L (<=4.3)
[2020-12-29 18:37] LABS: Vitamin C 0.8 mg/dL (0.3-2.7)
[2020-12-30 10:57] LABS: Vitamin B6 16.3 ng/mL (2.1-21.7)
[2020-12-31 02:37] LABS: Vitamin A 45 mcg/dL (38-98)
[2021-01-02 11:32] LABS: Nicotinamide 20 ng/mL; Vit B3 - Nicotinic Acid <20 ng/mL
[2021-01-02 14:16] LABS: Vitamin K1 519 pg/mL (130-1500)
[2021-01-02 19:31] LABS: Vitamin B5 (Pantothenic Acid) 208 ng/mL (<275)
== END 2020-12-25 09:46 | disposition home or self-care (01) ==
LOC: HO.LAB 09:45
PROVIDERS: Absent Provider Internal Medicine Gastroenterology; PCP Internal Medicine; Visit Provider Internal Medicine
DX: J44.9 Chronic obstructive pulmonary disease, unspecified (principal); K75.81 Nonalcoholic steatohepatitis (NASH); F17.200 Nicotine dependence, unspecified, uncomplicated; Z71.6 Tobacco abuse counseling
CPT/HCPCS: 36415; 80053; 82180; 82306; 82607; 82728; 82746; 84207; 84446; 84590; 84591; 84597; 84630; 85025; 85610; 99212

== ENCOUNTER 2021-01-02 10:26 | Outpatient (REF) | payer MEDICARE, OTHER, SELFPAY ==
[2021-01-02 17:06] LABS: Urine Cytology See Pathology rpt
== END 2021-01-02 10:27 | disposition home or self-care (01) ==
LOC: HO.LAB 10:26
PROVIDERS: PCP Internal Medicine; Visit Provider Urology
DX: C67.9 Malignant neoplasm of bladder, unspecified (principal); F17.210 Nicotine dependence, cigarettes, uncomplicated
CPT/HCPCS: 52000; 88112; 99212

== ENCOUNTER 2021-01-28 12:57 | Outpatient (REF) | payer MEDICARE, OTHER, SELFPAY ==
--- NOTE | ~2021-01-28 | XR_ITS ---
EXAMINATION: XR CERVICAL SPINE CLINICAL INFORMATION: Cervicalgia. COMPARISON: Chest CT dated 11/04/2020. TECHNIQUE: 3 views of the cervical spine were obtained. FINDINGS: Anterior stabilization hardware at C4-C6. No acute hardware or osseous fracture. No perihardware lucency to suggest loosening or infection. Tiny anterior endplate osteophytes at C3-C4. C7 not well visualized due to overlying soft tissues. Normal atlantoaxial alignment. Unremarkable prevertebral soft tissues. XR/XR cervical spine 3V IMPRESSION: Anterior stabilization hardware at C4-C6 without evidence of hardware complication. Mild degenerative disc disease at C3-C4, unchanged. C7 not well visualized due to overlying soft tissues.
== END 2021-01-28 12:58 | disposition home or self-care (01) ==
LOC: HO.HMGCX 12:57
PROVIDERS: PCP Internal Medicine; Visit Provider Internal Medicine
DX: Z13.89 Encounter for screening for other disorder (principal)
CPT/HCPCS: 72040

== ENCOUNTER 2021-02-15 08:35 | Outpatient (REF) | payer MEDICARE, OTHER, SELFPAY ==
[2021-02-15 11:24] LABS: Urine Cytology See Pathology rpt
[2021-02-15 11:31] LABS: Hemoglobin 11.5 g/dl (12.0-16.0)
[2021-02-15 11:33] LABS: Mean Corpuscular HGB Conc 30.3 g/dl (31.0-35.0); Mean Corpuscular Hemoglobin 27.4 pg (27.0-33.0); Mean Corpuscular Volume 90.7 fL (80-98); Mean Platelet Volume 12.7 fL (9.4-12.3); Platelet Count 240 X10*3/uL (160-400); Red Blood Count 4.19 X10*6/uL (4.20-5.50); Red Cell Distribution Width 15.7 % (11.0-16.0); White Blood Count 8.9 X10*3/uL (4.8-10.8)
[2021-02-15 11:35] LABS: Appearance Urine HAZY; Color Urine YELLOW; Glucose Urine UA NEG (NEG); Leukocyte Esterase Urine NEG (NEG); Nitrite Urine NEG (NEG); PH 7.5 (5.0-8.0); Urine Blood NEG (NEG); Urine Ketones NEG (NEG); Urine Protein NEG (NEG-TRACE)
[2021-02-15 11:42] LABS: Estimated Average Glucose 126 mg/dL
[2021-02-15 11:49] LABS: Mucus Urine 2+ /LPF; Squamous Epithelial Cell Urine 1+ /LPF
[2021-02-15 11:50] LABS: Amorphous Sediment Urine 2+ /LPF; RBC Urine 0 /HPF (0); WBC Urine 0 /HPF (0-4)
[2021-02-15 12:12] LABS: Alanine Aminotransferase 30 U/L (0-31); Alkaline Phosphatase 139 U/L (39-117); Anion Gap 11 (12-20); Aspartate Amino Transferase 31 U/L (5-31); Bilirubin Total 0.4 mg/dL (0.0-1.0); Blood Urea Nitrogen 22 mg/dL (9-16); Calcium 10.2 mg/dL (8.4-10.2); Carbon Dioxide 28 mmol/L (22-29); Chloride 108 mmol/L (96-108); Cholesterol 270 mg/dL; Estimated Glomerular Filt Rate 54; Glucose Fasting 133 mg/dL (60-99); HDL Cholesterol 39 mg/dL; LDL Cholesterol Calculated 167 mg/dl; Potassium 4.1 mmol/L (3.3-5.1); Sodium 143 mmol/L (135-145); Total Protein 7.5 g/dL (6.5-8.0); Triglycerides 321 mg/dL
== END 2021-02-15 08:36 | disposition home or self-care (01) ==
LOC: HO.HMGCLDS 08:35
PROVIDERS: Urology; PCP Internal Medicine; Visit Provider Internal Medicine
DX: N39.0 Urinary tract infection, site not specified (principal); C67.9 Malignant neoplasm of bladder, unspecified; E11.42 Type 2 diabetes mellitus with diabetic polyneuropathy; E78.01 Familial hypercholesterolemia; I10 Essential (primary) hypertension; I25.10 Atherosclerotic heart disease of native coronary artery without angina pectoris; E53.8 Deficiency of other specified B group vitamins
CPT/HCPCS: 36415; 80053; 80061; 81001; 83036; 85027; 88112

== ENCOUNTER 2021-03-13 11:00 | Outpatient (RCR) | payer MEDICARE, OTHER, SELFPAY ==
--- NOTE | 2021-02-13 13:20 | MHC.PT.EP ---
[facility] [place] [address] [facility] [place] [facility] [address] Max Alexandra [address] [phone] F: [phone] F: [phone] F: [phone] F: [phone] Physical Therapy Plan of Care Date of Evaluation: Date of Surgery: hx of cervical surgery (~ 20 year ago) Diagnosis: cervicalgia Assessment: Pt is a 70/yo F referred to PT for eval/treat of cervicalgia. Signs and symptoms are consistent with neck and shoulder dysfunction resulting in decreased tolerance for decreased tolerance and ability for static postures, lifting/ pushing/ pulling objects of weight, reading for duration as well as disturbed sleep. Functional limitations are secondary to decreased cervical. scapulothoracic ROM, postural impairment (rounded shoulder, forward head), tight L UT, hyperalgesia of L UT, and pain with L UE movement. Pt is deemed appropriate to receive skilled PT to address her physical impairments and improve her functional ability. Frequency and Duration: The patient will be seen 2x/wk for 5 wk Short Term Goals: initiate HEP w/ evidence of compliance pt will report less than 2/10 at rest; initial 6/10 Half-Way Goals: I with HEP pt will be able to have functional shoulder ROM without increased symptoms pt will be able lift heavy objects off of the floor without increased symptoms; initial - pain prevents her from picking heavy objects pt will improve her NDI score by 10 points; initial score 20/50 Treatment Plan: Modalities to reduce pain, spasms and effusion. Manual therapy to restore motion and function. Therapeutic exercise to improve strength and flexibility. Neuromuscular re-education for posture and balance. Therapeutic activities to return to functional activities of daily living. Electronically signed by: Rusty Da Silva PT Please sign and return to therapist. Thank you for your referral.
--- NOTE | 2021-03-13 11:59 | MHC.PT.DC ---
[facility] [place] Office [place] Office [place] Office [address] Max Alexandra [address] [facility] [phone] F: [phone] F: [phone] F: [phone] F: [phone] Physical Therapy Discharge Report Diagnosis: cervicalgia Date of Surgery: hx of cervical surgery (~ 20 year ago) Date of Evaluation: 02/13/21 Date of Discharge: 03/13/21 Treatments to Date: 8 Cancellations to Date: No Shows to Date: Discharge Status: Achieved Goals Improved Function Independent with HEP Discharge Summary: Dai has been an active participant in her therapy; she has met all of her therapeutic goals, is I with her HEP and in agreement with DC at this time. She has improve her cervical outcome measure NDI from 40% disability to 8%. Electronically signed by: Rusty Da Silva PT. Please sign and return to therapist. Thank you for your referral.
== END 2021-03-13 12:00 | disposition home or self-care (01) ==
LOC: HO.PTCHIC 11:00
PROVIDERS: PCP Internal Medicine; Visit Provider Internal Medicine
DX: M54.2 Cervicalgia (principal)
CPT/HCPCS: 97110; 97140; 97162

== ENCOUNTER 2021-03-19 11:10 | Outpatient (REF) | payer MEDICARE, OTHER, SELFPAY ==
--- NOTE | ~2021-03-19 | US_ITS ---
EXAMINATION: US ABDOMEN LIMITED WITH LIVER ELASTOGRAPHY CLINICAL INFORMATION: CHRISTINE COMPARISON: Previous abdominal ultrasound most recent December 2019 TECHNIQUE: Real-time imaging of the abdominal viscera. Noninvasive ultrasound liver fibrosis assessment is performed using [employer] Elast[employer] point quantification shear wave elastography (pSWE) with a C5-2 MHz transducer. Multiple elastography samples are obtained. FINDINGS: PANCREAS: The visualized pancreatic head and body are normal in appearance. The remainder of the pancreas is obscured from visualization by the overlying bowel gas. LIVER: Liver echotexture is slightly increased. Liver contour is normal. No focal lesion or intrahepatic biliary duct dilatation. The liver is slightly enlarged. The right lobe measures 20 cm in length. The left lobe measures 13.5 cm in length. Portal flow is normal/hepatopedal Shear wave liver elastography median stiffness is 2.5 m/s (reference: normal median stiffness is 1.3 m/s or less). IQR/median stiffness to assess sampling precision is 0.02 (reference: good quality data set is IQR/median stiffness of 0.15 or less). GALLBLADDER: Normal. The gallbladder is physiologically distended without evidence of stones, sludge, polyps, wall thickening or pericholecystic fluid. COMMON BILE DUCT: Normal in caliber measuring 0.8 cm in diameter. RIGHT KIDNEY: There is a 5 mm simple cyst in the lower pole and question 7 mm simple cyst versus prominent pyramid in the upper pole. No hydronephrosis. No renal calculi. The kidney measures 10 cm in maximum dimension. FREE FLUID: None. US/US abdomen ashley w elastography IMPRESSION: 1. Impression: Slightly enlarged echogenic liver. Limited visualization of the tail of the pancreas. Right renal cyst 2. Liver elastography: Adequate liver sampling. Elevated liver stiffness suggestive of clinically significant portal hypertension. REFERENCE: Society of Radiologists in Ultrasound Liver Stiffness Thresholds (2020): LIVER STIFFNESS THRESHOLDS: *Liver Stiffness equal or less than 1.3 m/s: High probability of being normal. *Liver Stiffness less than 1.7 m/s: In the absence of other known clinical signs, rules out compensated advanced chronic liver disease. *Liver Stiffness 1.7-2.1 m/s: Suggestive of compensated advanced chronic liver disease but need further test for confirmation. *Liver Stiffness over 2.1 m/s: Rules in compensated advanced chronic liver disease. *Liver Stiffness over 2.4 m/s: Suggestive of clinically significant portal hypertension. QUALITY OF DATA SET: *IQR/Median value equal or less than 0.15 implies a quality data set. *IQR/Median value over 0.15 implies a poor quality data set. SIGNIFICANT CHANGE FROM PRIOR EXAM: Significant change if liver stiffness measurement is 10% or greater from prior exam. OTHER CONSIDERATIONS: The stage of liver fibrosis may be overestimated in the setting of acute hepatitis, liver inflammation, elevated liver function tests, hepatic vascular congestion, obstructive cholestasis, non-fasting state, and infiltrative diseases such as amyloidosis and lymphoma. In some patients with NAFLD, the liver stiffness thresholds for compensated advanced chronic liver disease may be lower. In causes other than viral hepatitis and NAFLD, liver stiffness thresholds are not well established.
== END 2021-03-19 11:11 | disposition home or self-care (01) ==
LOC: HO.US 11:10
PROVIDERS: Visit Provider Internal Medicine Gastroenterology
DX: K75.81 Nonalcoholic steatohepatitis (NASH) (principal)
CPT/HCPCS: 76705; 76981

== ENCOUNTER → 2021-03-25 10:46 | Outpatient (BNVA) | payer MEDICARE, OTHER, SELFPAY | PROVIDERS: PCP Internal Medicine; Visit Provider Orthopaedic Surgery | DX: M70.61 Trochanteric bursitis, right hip (principal); R91.1 Solitary pulmonary nodule; F17.200 Nicotine dependence, unspecified, uncomplicated | CPT/HCPCS: 20610; 99212; J1100 ==

== ENCOUNTER → 2021-04-09 09:50 | Outpatient (BNVA) | payer MEDICARE, OTHER, SELFPAY | PROVIDERS: PCP Internal Medicine; Referring Provider Internal Medicine; Visit Provider Internal Medicine Gastroenterology | DX: R79.89 Other specified abnormal findings of blood chemistry (principal); K75.81 Nonalcoholic steatohepatitis (NASH); K74.00 Hepatic fibrosis, unspecified; R14.1 Gas pain | CPT/HCPCS: 99212 ==

== ENCOUNTER → 2021-04-18 13:29 | Outpatient (BNVA) | payer MEDICARE, OTHER, SELFPAY | PROVIDERS: PCP Internal Medicine; Visit Provider Internal Medicine | DX: J44.9 Chronic obstructive pulmonary disease, unspecified (principal); R91.1 Solitary pulmonary nodule; F17.200 Nicotine dependence, unspecified, uncomplicated | CPT/HCPCS: 99212 ==

== ENCOUNTER 2021-04-19 09:49 | Outpatient (REF) | payer MEDICARE, OTHER, SELFPAY ==
[2021-04-19 12:20] LABS: Alanine Aminotransferase 29 U/L (0-31); Albumin Level 3.8 g/dL (3.5-5.0); Alkaline Phosphatase 148 U/L (39-117); Anion Gap 12 (12-20); Aspartate Amino Transferase 43 U/L (5-31); Bilirubin Total 0.3 mg/dL (0.0-1.0); Blood Urea Nitrogen 22 mg/dL (9-16); Calcium 9.3 mg/dL (8.4-10.2); Carbon Dioxide 24 mmol/L (22-29); Chloride 112 mmol/L (96-108); Cholesterol 190 mg/dL; Estimated Glomerular Filt Rate 50; Glucose Fasting 118 mg/dL (60-99); HDL Cholesterol 37 mg/dL; LDL Cholesterol Calculated 117 mg/dl; Potassium 4.2 mmol/L (3.3-5.1); Sodium 144 mmol/L (135-145); Total Protein 7.2 g/dL (6.5-8.0); Triglycerides 183 mg/dL
[2021-04-19 13:52] LABS: Estimated Average Glucose 140 mg/dL; Hemoglobin A1c % 6.5 %
== END 2021-04-19 09:50 | disposition home or self-care (01) ==
LOC: HO.HMGCLDS 09:49
PROVIDERS: PCP Internal Medicine; Visit Provider Internal Medicine
DX: E11.42 Type 2 diabetes mellitus with diabetic polyneuropathy (principal); E53.8 Deficiency of other specified B group vitamins
CPT/HCPCS: 36415; 80053; 80061; 83036

== ENCOUNTER 2021-06-12 10:17 | Outpatient (REF) | payer MEDICARE, OTHER, SELFPAY ==
[2021-06-12 11:54] LABS: Creatinine Urine 23.54 mg/dL; Microalbum/Creatinine Ratio Ur 38.2 ug/mg cr
== END 2021-06-12 10:18 | disposition home or self-care (01) ==
LOC: HO.HMGCLNP 10:17
PROVIDERS: PCP Internal Medicine; Visit Provider Internal Medicine
DX: Z13.89 Encounter for screening for other disorder (principal)
CPT/HCPCS: 82043

== ENCOUNTER 2021-06-12 15:03 | Outpatient (REF) | payer MEDICARE, OTHER, SELFPAY ==
--- NOTE | ~2021-06-12 | US_ITS ---
EXAMINATION: US VENOUS ULTRASOUND WITH DOPPLER LOWER EXTREMITY, LEFT CLINICAL INFORMATION: Swelling COMPARISON: Previous exam most recent March 2019 TECHNIQUE: Ultrasound of the deep veins is performed from the hip to the calf with compression sonography and color and pulse Doppler assessment. Spectral analysis with color-flow imaging is performed. FINDINGS: There is normal venous compression and respiratory variation and augmented flow. The visualized common femoral vein, superficial femoral vein, profunda femoral vein, popliteal vein, and the trifurcation region shows no evidence of deep venous thrombosis. There is no significant popliteal fossa cyst. US/US venous duplex LE LT IMPRESSION: No DVT demonstrated in the left lower extremity.
== END 2021-06-12 15:04 | disposition home or self-care (01) ==
LOC: HO.HMGCX 15:03
PROVIDERS: Visit Provider Internal Medicine
DX: M79.89 Other specified soft tissue disorders (principal); E11.42 Type 2 diabetes mellitus with diabetic polyneuropathy; I25.10 Atherosclerotic heart disease of native coronary artery without angina pectoris; J44.9 Chronic obstructive pulmonary disease, unspecified; E78.01 Familial hypercholesterolemia
CPT/HCPCS: 82043; 93971

== ENCOUNTER 2021-06-19 12:47 | Outpatient (REF) | payer MEDICARE, OTHER, SELFPAY ==
--- NOTE | ~2021-06-19 | CT_ITS ---
EXAMINATION: CT CHEST SCREENING CLINICAL INFORMATION: Current smoker. 60 pack year history. COMPARISON: Previous chest CT most recent October 2019 TECHNIQUE: Multidetector volumetric CT imaging of the chest is performed without contrast using low dose technique. Additional 2D coronal and sagittal reformatted images and axial 3D maximum intensity projection (MIP) images are generated on the CT workstation. This CT examination was performed using dose optimization techniques as appropriate, variously including the following: *Automated exposure control *Adjustment of mA and/or kV according to patient size (this includes techniques or standardized protocols for targeted exams where dose is matched to indication/reason for exam; i.e. extremities or head) *Use of iterative reconstruction technique DLP: 1258 mGy-cm FINDINGS: LUNGS: There is evidence of emphysema. There is a 6 mm peripheral or subpleural left lower lobe nodule axial image 148 series 5 that is stable. The lungs are otherwise clear. No new pulmonary nodule is seen. No endobronchial or endotracheal lesion. MEDIASTINUM: Severe atherosclerotic disease. Coronary artery and aortic valve calcification. The heart does not appear enlarged. Upper normal-size ascending thoracic aorta measuring 4 cm. Normal caliber aortic arch and descending thoracic aorta. No pericardial effusion. No enlarged hilar or mediastinal lymph nodes. PLEURA: There is no pleural effusion. No pleural mass or thickening. AXILLA: No lymphadenopathy. UPPER ABDOMEN: Partially visualized 1 cm calcification suggestive of calcified splenic artery aneurysm. This is stable from previous exams. OSSEOUS STRUCTURES: Degenerative changes of the thoracic spine. Postsurgical changes to the lower cervical spine. CT/CT lung screening IMPRESSION: Emphysema. Stable left lower lobe nodule. Severe atherosclerotic disease and coronary artery calcification. ASSESSMENT: Lung-RADS category 2: Benign RECOMMENDATION: Annual low-dose chest CT follow-up recommended.
== END 2021-06-19 12:48 | disposition home or self-care (01) ==
LOC: HO.CT 12:47
PROVIDERS: Visit Provider Physician Assistant Medical
DX: J43.9 Emphysema, unspecified (principal); R91.1 Solitary pulmonary nodule; I25.10 Atherosclerotic heart disease of native coronary artery without angina pectoris; I70.0 Atherosclerosis of aorta; F17.200 Nicotine dependence, unspecified, uncomplicated
CPT/HCPCS: 71271

== ENCOUNTER → 2021-08-09 09:17 | Outpatient (BNVA) | payer MEDICARE, OTHER, SELFPAY | PROVIDERS: PCP Internal Medicine; Referring Provider Internal Medicine; Visit Provider Internal Medicine Gastroenterology | DX: K75.81 Nonalcoholic steatohepatitis (NASH) (principal) | CPT/HCPCS: 99212 ==

== ENCOUNTER → 2021-08-15 13:08 | Outpatient (BNVA) | payer MEDICARE, OTHER, SELFPAY | PROVIDERS: PCP Internal Medicine; Visit Provider Internal Medicine | DX: J44.9 Chronic obstructive pulmonary disease, unspecified (principal); I25.10 Atherosclerotic heart disease of native coronary artery without angina pectoris; I10 Essential (primary) hypertension; E11.42 Type 2 diabetes mellitus with diabetic polyneuropathy; E78.5 Hyperlipidemia, unspecified; E53.8 Deficiency of other specified B group vitamins; E55.9 Vitamin D deficiency, unspecified; F17.210 Nicotine dependence, cigarettes, uncomplicated; F41.8 Other specified anxiety disorders; Z88.0 Allergy status to penicillin; Z88.2 Allergy status to sulfonamides; Z88.7 Allergy status to serum and vaccine; Z88.8 Allergy status to other drugs, medicaments and biological substances; Z88.6 Allergy status to analgesic agent; Z88.1 Allergy status to other antibiotic agents; Z91.041 Radiographic dye allergy status; Z91.011 Allergy to milk products; Z79.82 Long term (current) use of aspirin; Z79.84 Long term (current) use of oral hypoglycemic drugs; Z79.899 Other long term (current) drug therapy | CPT/HCPCS: 99212 ==

== ENCOUNTER 2021-08-30 13:39 | Outpatient (REF) | payer MEDICARE, OTHER, SELFPAY | END 2021-08-30 13:40 | disposition home or self-care (01) | LOC: HO.LAB 13:39 | PROVIDERS: PCP Internal Medicine; Visit Provider Urology | DX: C67.9 Malignant neoplasm of bladder, unspecified (principal); N39.0 Urinary tract infection, site not specified | CPT/HCPCS: 52000; 87086; 99212 ==

== ENCOUNTER 2021-09-05 06:48 | Outpatient (REF) | payer MEDICARE, OTHER, SELFPAY ==
--- NOTE | ~2021-09-05 | US_ITS ---
EXAMINATION: US ABDOMEN LIMITED WITH LIVER ELASTOGRAPHY CLINICAL INFORMATION: CHRISTINE. COMPARISON: None. TECHNIQUE: Real-time imaging of the abdominal viscera. Noninvasive ultrasound liver fibrosis assessment is performed using [employer] Elast[employer] point quantification shear wave elastography (2D-SWE) with a C5-2 MHz transducer. Multiple elastography samples are obtained. FINDINGS: PANCREAS: Most of the pancreas is obscured by the overlying bowel gas. LIVER: Normal. The liver demonstrates normal size, contour and echogenicity. No focal lesion or intrahepatic biliary duct dilatation. The right lobe measures 22.0 cm in length. The left lobe measures 14.5 cm in length. Portal flow is hepatopedal. Shear wave liver elastography median stiffness is 2.09 m/s (reference: normal median stiffness is 1.3 m/s or less). IQR/median stiffness to assess sampling precision is 0.11 (reference: good quality data set is IQR/median stiffness of 0.15 or less). GALLBLADDER: Normal. The gallbladder is physiologically distended without evidence of stones, sludge, polyps, wall thickening or pericholecystic fluid. COMMON BILE DUCT: Normal in caliber measuring 0.6 cm in diameter. RIGHT KIDNEY: No hydronephrosis. No renal calculi or focal parenchymal lesions. The kidney measures 9.1 cm in maximum dimension. There is an anechoic cyst in the upper pole measuring 0.9 x 0.7 x 0.7 cm and cyst in the lower pole measuring 0.8 x 0.5 x 0.6 cm. FREE FLUID: None. US/US abdomen ashley w elastography IMPRESSION: 1. Diffuse hepatic steatosis without focal lesion. There are two anechoic cysts right kidney. 2. Liver elastography: Median liver stiffness measures 2.09 m/s corresponding to cACLD suggestive. REFERENCE: Society of Radiologists in Ultrasound Liver Stiffness Thresholds (2020): LIVER STIFFNESS THRESHOLDS: *Liver Stiffness equal or less than 1.3 m/s: High probability of being normal. *Liver Stiffness less than 1.7 m/s: In the absence of other known clinical signs, rules out compensated advanced chronic liver disease. *Liver Stiffness 1.7-2.1 m/s: Suggestive of compensated advanced chronic liver disease but need further test for confirmation. *Liver Stiffness over 2.1 m/s: Rules in compensated advanced chronic liver disease. *Liver Stiffness over 2.4 m/s: Suggestive of clinically significant portal hypertension. QUALITY OF DATA SET: *IQR/Median value equal or less than 0.15 implies a quality data set. *IQR/Median value over 0.15 implies a poor quality data set. SIGNIFICANT CHANGE FROM PRIOR EXAM: Significant change if liver stiffness measurement is 10% or greater from prior exam. OTHER CONSIDERATIONS: The stage of liver fibrosis may be overestimated in the setting of acute hepatitis, liver inflammation, elevated liver function tests, hepatic vascular congestion, obstructive cholestasis, non-fasting state, and infiltrative diseases such as amyloidosis and lymphoma. In some patients with NAFLD, the liver stiffness thresholds for compensated advanced chronic liver disease may be lower. In causes other than viral hepatitis and NAFLD, liver stiffness thresholds are not well established.
== END 2021-09-05 06:49 | disposition home or self-care (01) ==
LOC: HO.US 06:48
PROVIDERS: PCP Internal Medicine; Visit Provider Internal Medicine Gastroenterology
DX: K75.81 Nonalcoholic steatohepatitis (NASH) (principal)
CPT/HCPCS: 76705; 76981

== ENCOUNTER 2021-09-10 22:43 | Inpatient (IN) | payer MEDICARE, OTHER, SELFPAY ==
--- NOTE | ~2021-09-10 | XR_ITS ---
EXAMINATION: XR CHEST CLINICAL INFORMATION: Shortness of breath COMPARISON: 02/06/2020 TECHNIQUE: Frontal view of the chest was obtained. FINDINGS: Lung volumes are symmetric. No focal consolidation is seen. No evidence of pneumothorax, pleural effusion, or pulmonary edema. Cardiac size is within normal limits. Calcification is present at the aortic arch. Fusion hardware noted in the lower cervical spine. XR/XR chest 1V IMPRESSION: No acute cardiopulmonary findings.
--- NOTE | 2021-09-10 22:49 | ED.SOB ---
HPI - SOB/Dyspnea General Chief Complaint: Dyspnea Stated Complaint: sob Time Seen by Provider: 09/10/21 22:49 Source: patient Mode of arrival: EMS Limitations: no limitations History of Present Illness HPI Narrative: Patient is 71 sore chronic smoker with advanced COPD, coronary artery disease, diabetes comes in for 3 days of cough with mucopurulent phlegm had increasing shortness of breath patient been using nebulizer in route right home with poor response. Patient is saturating 90% on room air improved after DuoNeb treatment no fever no chills no chest pain or palpitation Related Data Home Medications Medication Instructions Recorded Confirmed [id number]-[id number]-[id number] 1 tab PO Q6H PRN 12/25/20 08/01/21 50 mg-325 mg-40 mg tablet multivitamin (Daily Multi-Vitamin) 1 tab PO DAILY 12/25/20 08/01/21 meclizine 25 mg tablet 25 mg PO TID PRN 01/02/21 08/01/21 paroxetine HCl 10 mg tablet 10 mg PO DAILY 01/02/21 08/01/21 ramelteon 8 mg tablet (Rozerem) 8 mg PO BEDTIME PRN 04/09/21 08/01/21 amlodipine 5 mg tablet 5 mg PO DAILY 08/09/21 fluticasone fur. 100 mcg-umeclid ea INHALATION DAILY 08/09/21 62.5 mcg-vilant 25 mcg inhalat.powder (Trelegy Ellipta) lisinopril 2.5 mg tablet 2.5 mg PO DAILY 08/09/21 mirtazapine 15 mg tablet 15 mg PO BEDTIME 08/09/21 docusate sodium 100 mg capsule 100 mg PO BID PRN cap 08/15/21 (Colace) azithromycin 500 mg tablet 500 mg PO DAILY 08/30/21 bupropion HCl 150 mg tablet,12 hr 150 mg PO QAM 08/30/21 sustained-release Previous Rx's Medication Instructions Recorded bupropion HCl 150 mg 24 hr tablet, 150 mg PO QAM #90 tab 01/08/21 extended release cyanocobalamin (vitamin B-12) 2,000 mcg PO DAILY #180 tab 01/08/21 1,000 mcg tablet gabapentin 100 mg capsule 200 mg PO BID #360 cap 01/08/21 topiramate 100 mg tablet 100 mg PO BID #180 tab 01/08/21 lidocaine 5 % topical patch 1 patch TOPICAL DAILY #30 ea 01/10/21 atorvastatin 80 mg tablet 80 mg PO DAILY #90 tab 02/19/21 simethicone 125 mg chewable tablet 125 mg PO TID PRN #60 tab 04/09/21 (Gas Relief (simethicone)) cholecalciferol (vitamin D3) 25 25 mcg PO DAILY #90 tab 04/26/21 mcg (1,000 unit) tablet metformin 500 mg tablet 250 mg PO DAILY #90 tab 04/26/21 nystatin 100,000 unit/gram topical 1 appl TOPICAL TID #60 g 04/30/21 powder acetaminophen 325 mg tablet 325 mg PO Q6H PRN #90 tab 08/01/21 (Tylenol) aspirin 81 mg chewable tablet 1 tab PO DAILY #90 tab 08/02/21 meloxicam 15 mg tablet 15 mg PO DAILY #30 tab 08/05/21 blood sugar diagnostic (FreeStyle #100 ea 08/07/21 Lite Strips) lancets 28 gauge (FreeStyle #100 ea 08/07/21 Lancets) cephalexin 500 mg capsule 500 mg PO Q12H 14 Days #28 cap 08/09/21 polyethylene glycol 3350 17 17 g PO BID #510 g 08/09/21 gram/dose oral powder (Miralax) ursodiol 500 mg tablet 500 mg PO BID #90 tab 08/21/21 ciprofloxacin HCl 500 mg tablet 500 mg PO BID 4 Days #8 tab 08/30/21 albuterol sulfate 90 mcg/actuation 2 puff INHALATION Q4-6H PRN #8.5 g 09/02/21 aerosol inhaler ciprofloxacin HCl 250 mg tablet 250 mg PO BID 3 Days #6 tab 09/03/21 (Cipro) Allergies Allergy/AdvReac Type Severity Reaction Status Date / Time amoxicillin [AMOXICILLIN] Allergy Mild DIARRHEA Verified 08/30/21 13:45 Darvocet A500 Allergy Unknown upset Verified 08/30/21 13:45 stomach melatonin Allergy Unknown Nausea and Verified 08/30/21 13:45 Vomiting oxycodone [From PERCOCET] Allergy Unknown NAUSEA,VOMI Verified 08/30/21 13:45 TING Propoxyphene HCl Allergy Unknown upset Verified 08/30/21 13:45 stomach influenza virus vaccine, AdvReac Intermediate NAUSEA,DIAR Verified 08/30/21 13:45 specific WU [FLU VACCINE] Iodinated Contrast Media AdvReac Intermediate NAUSEA,DIZZINESS,CHEST Verified 08/30/21 13:45 [IV CONTRAST] PRESSURE lactose [LACTOSE] AdvReac Intermediate GI UPSET Verified 08/30/21 13:45 metronidazole [From FLAGYL] AdvReac Intermediate NAUSEA & Verified 08/30/21 13:45 VOMITING Sulfa (Sulfonamide AdvReac Intermediate EYE DROPS Verified 08/30/21 13:45 Antibiotics) (ONLY)-IRITIS Review of Systems Review of Systems: Yes all other systems are reviewed and are negative [facility] Past Medical History Attestation statement: The following information was validated with the patient. Medical History Anxiety CAD (coronary artery disease) Cervical stenosis of spine COPD (chronic obstructive pulmonary disease) Depression Diabetes Diabetic polyneuropathy associated with type 2 diabetes mellitus DM type 2 (diabetes mellitus, type 2) HTN (hypertension) Hyperlipidemia Left leg swelling Low vitamin D level Migraine headache Neck pain Nonalcoholic steatohepatitis (CHRISTINE) Pulmonary nodule Smoker Vertigo Vitamin B 12 deficiency Vitamin B12 deficiency Surgical History Fusion of spine of cervical region History of carpal tunnel release History of hysterectomy Family History Family History Mother CVD (cardiovascular disease) CVA (cerebral vascular accident) Father CVD (cardiovascular disease) Social History Social History Household Members: Friend(s) Housing: Unknown / Unable to assess Alcohol intake: never Patient Tobacco Use Status: Current everyday Tobacco user Cigarettes Per Day: 3 e-Cigarette/Vaping Use: Never Used Advance Directives: No Advance Directives Date on File: 11/05/20 service: No Current occupational status: retired Current occupation: Right Handed Physical Exam Vital Signs: Vital Signs: Last Vital Signs Temp 97.8 F 09/10/21 22:54 Pulse 21 L 09/11/21 01:07 Resp 16 09/11/21 01:07 BP 129/52 L 09/11/21 00:22 Pulse Ox 92 09/11/21 00:40 BMI result Body Mass Index 27.3 Appearance: Alert. Oriented X3. No acute distress. Frequent dry cough Eyes: PERRLA, No Nystagmus ENT: Pharynx normal. Oral Mucosa moist Neck: Normal inspection. Neck supple. CVS: Normal heart rate and rhythm. Pulses normal. Respiratory: No respiratory distress. Equal air entry bilateral, prolonged expiration with wheezing Abdomen: Soft and nontender. Bowel sounds are present, no mass palpable, no CVA tenderness Skin: Skin warm and dry. Normal skin color. Normal skin turgor. Extremities: No lower extremity edema. No calf tenderness Neuro: Oriented X 3. No motor deficit. MDM - SOB/Dyspnea MDM Narrative Medical decision making narrative: Patient is still feeling short of breath saturating 90% at room air does not have any oxygen at home will admit patient for COPD / chronic bronchitis Lab Data Attestation: I reviewed the patient's lab results. Result diagrams: 09/10/21 23:28 09/10/21 23:28 Labs: Lab Results 09/10/21 09/10/21 09/10/21 Range/Units 23:28 23:28 23:28 WBC 10.7 (4.8-10.8) X10*3/uL RBC 4.42 (4.20-5.50) X10*6/uL Hgb 11.5 L (12.0-16.0) g/dl Hct 38.0 (37.0-47.0) % MCV 86.0 (80.0-98.0) fL MCH 26.0 L (27.0-33.0) pg MCHC 30.3 L (31.0-35.0) g/dl RDW 15.5 (11.0-16.0) % Plt Count 271 (160-400) X10*3/uL MPV 10.6 (9.4-12.3) fL Immature Gran % (Auto) 0.4 (0.0-0.4) % Neut % (Auto) 47.5 (45-73) % Lymph % (Auto) 39.0 (20-40) % [place] % (Auto) 7.2 (2-11) % Eos % (Auto) 5.2 H (0-4) % Baso % (Auto) 0.7 (0-2) % Lymph # (Auto) 4.2 (1.2-4.9) X10*3/uL [place] # (Auto) 0.8 (0.1-1.2) X10*3/uL Eos # (Auto) 0.6 H (0.0-0.4) X10*3/uL Baso # (Auto) 0.1 (0.0-0.2) X10*3/uL Abs Immat Gran (auto) 0.04 H (0.00-0.03) X10*3/uL Absolute Neuts (auto) 5.1 (2.0-8.3) x10*3/uL Absolute Nucleated RBC 0.000 (0.0-0.012) X10*3/uL Nucleated RBC % (auto) 0.0 (0.0-0.2) /100WBC Sodium 140 (135-145) mmol/L Potassium 4.4 (3.3-5.1) mmol/L Chloride 107 (96-108) mmol/L Carbon Dioxide 23 (22-29) mmol/L Anion Gap 14 (12-20) BUN 10 D (9-16) mg/dL Creatinine 1.10 (0.5-1.4) mg/dL Estim Creat Clear Calc 39.5 Estimated GFR 49 Random Glucose 135 H (60-115) mg/dL Calcium 9.3 (8.4-10.2) mg/dL Total Bilirubin 0.4 (0.0-1.0) mg/dL AST 40 H (5-31) U/L ALT 22 (0-31) U/L Alkaline Phosphatase 141 H (39-117) U/L Total Protein 7.8 (6.5-8.0) g/dL Albumin 3.9 (3.5-5.0) g/dL COVID-19 (JENNIFER) Negative (Negative) COVID-19 Clin Com See Note Discharge Plan Discharge Clinical Impression: COPD (chronic obstructive pulmonary disease), Acute bronchitis Patient Disposition: Admitted As Inpatient
[2021-09-10 22:50] VITALS: BP 142/69; PULSE 106; O2SAT 98
[2021-09-10 22:54] VITALS: BP 158/60; PULSE 111; RESP 30; TEMP 36.6; O2SAT 93
[2021-09-10 22:56] VITALS: PULSE 113; RESP 22; O2SAT 93; BMI 27.3
[2021-09-10] MEDS: Albuterol Sulfate (0.083%) 2.5 MG/3 ML VIAL.NEB 7.5 MG INHALE (23:15)
[2021-09-10] MEDS: methylPREDNISolone Sod Succ 125 MG/2 ML VIAL IVPUSH (23:23)
[2021-09-10 23:33] LABS: MANUAL DIFF FLAG NO
[2021-09-10 23:34] LABS: Basophils Absolute Auto 0.1 X10*3/uL (0.0-0.2); Basophils Percent Auto 0.7 % (0-2); Eosinophils Absolute Auto 0.6 X10*3/uL (0.0-0.4); Eosinophils Percent Auto 5.2 % (0-4); Hemoglobin 11.5 g/dl (12.0-16.0); Imm Gran Abs Auto 0.04 X10*3/uL (0.00-0.03); Imm Gran Pct Auto 0.4 % (0.0-0.4); Lymphocytes Absolute Auto 4.2 X10*3/uL (1.2-4.9); Mean Corpuscular HGB Conc 30.3 g/dl (31.0-35.0); Mean Platelet Volume 10.6 fL (9.4-12.3); Monocytes Absolute Auto 0.8 X10*3/uL (0.1-1.2); Monocytes Percent Auto 7.2 % (2-11); Neutrophils Absolute Auto 5.1 x10*3/uL (2.0-8.3); Neutrophils Percent Auto 47.5 % (45-73); Platelet Count 271 X10*3/uL (160-400); Red Blood Count 4.42 X10*6/uL (4.20-5.50); Red Cell Distribution Width 15.5 % (11.0-16.0); White Blood Count 10.7 X10*3/uL (4.8-10.8)
[2021-09-10 23:47] LABS: COVID-19 Test Negative (Negative)
[2021-09-10 23:49] LABS: Alanine Aminotransferase 22 U/L (0-31); Albumin Level 3.9 g/dL (3.5-5.0); Alkaline Phosphatase 141 U/L (39-117); Anion Gap 14 (12-20); Aspartate Amino Transferase 40 U/L (5-31); Bilirubin Total 0.4 mg/dL (0.0-1.0); Blood Urea Nitrogen 10 mg/dL (9-16); Calcium 9.3 mg/dL (8.4-10.2); Carbon Dioxide 23 mmol/L (22-29); Chloride 107 mmol/L (96-108); Creatinine Clr Calc Pharmacy 39.5; Estimated Glomerular Filt Rate 49; Glucose Random 135 mg/dL (60-115); Potassium 4.4 mmol/L (3.3-5.1); Sodium 140 mmol/L (135-145); Total Protein 7.8 g/dL (6.5-8.0)
[2021-09-11] VITALS (13 sets, daily range): BP systolic 119–163; BP diastolic 52–73; PULSE 21–110; RESP 14–24; TEMP 35.9–36.8; O2SAT 88–98
[2021-09-11] MEDS: Albuterol/Iprat 2.5/0.5MG 3 ML AMPUL.NEB INHALE ×6 (01:09→22:10)
--- NOTE | 2021-09-11 01:31 | PM.IMHP ---
History of Present Illness Date of Service: 09/11/21 Chief Complaint: Shortness of breath 71-year-old female with past medical history of id/asthma, CAD, diabetes, HTN, HLD, active smoker, who presents to the hospital with complaints of shortness of breath, cough, sputum production. Patient reports that for the past 5 days she developed shortness of breath. Her symptoms worsen the past 3 days. Patient tried her inhalers, with no relief. Patient has cough, sputum production, no fever but some chills. Patient denies any chest pain, no abdominal pain nausea or vomiting, no diarrhea constipation, no urinary symptoms and no lower extremity edema. No orthopnea or PND On arrival to the hospital patient was found to be hypoxic with an O2 level of 88% on room air, Labs reviewed generally unremarkable, Chest x-ray shows no acute cardiopulmonary findings COVID-19 influenza and RSV negative Patient will be admitted for COPD exacerbation Review of Systems Review of Systems: Yes all other systems are reviewed and are negative [facility] Medical History Anxiety CAD (coronary artery disease) Cervical stenosis of spine COPD (chronic obstructive pulmonary disease) Depression Diabetes Diabetic polyneuropathy associated with type 2 diabetes mellitus DM type 2 (diabetes mellitus, type 2) HTN (hypertension) Hyperlipidemia Left leg swelling Low vitamin D level Migraine headache Neck pain Nonalcoholic steatohepatitis (CHRISTINE) Pulmonary nodule Smoker Vertigo Vitamin B 12 deficiency Vitamin B12 deficiency Family History Mother CVD (cardiovascular disease) CVA (cerebral vascular accident) Father CVD (cardiovascular disease) Surgical History Fusion of spine of cervical region History of carpal tunnel release History of hysterectomy Social History Household Members: Friend(s) Housing: Unknown / Unable to assess Alcohol intake: never Patient Tobacco Use Status: Current everyday Tobacco user Cigarettes Per Day: 3 e-Cigarette/Vaping Use: Never Used Advance Directives: No Advance Directives Date on File: 11/05/20 service: No Current occupational status: retired Current occupation: Right Handed Meds Allergies Allergy/AdvReac Type Severity Reaction Status Date / Time amoxicillin [AMOXICILLIN] Allergy Mild DIARRHEA Verified 08/30/21 13:45 Darvocet A500 Allergy Unknown upset Verified 08/30/21 13:45 stomach melatonin Allergy Unknown Nausea and Verified 08/30/21 13:45 Vomiting oxycodone [From PERCOCET] Allergy Unknown NAUSEA,VOMI Verified 08/30/21 13:45 TING Propoxyphene HCl Allergy Unknown upset Verified 08/30/21 13:45 stomach influenza virus vaccine, AdvReac Intermediate NAUSEA,DIAR Verified 08/30/21 13:45 specific WU [FLU VACCINE] Iodinated Contrast Media AdvReac Intermediate NAUSEA,DIZZINESS,CHEST Verified 08/30/21 13:45 [IV CONTRAST] PRESSURE lactose [LACTOSE] AdvReac Intermediate GI UPSET Verified 08/30/21 13:45 metronidazole [From FLAGYL] AdvReac Intermediate NAUSEA & Verified 08/30/21 13:45 VOMITING Sulfa (Sulfonamide AdvReac Intermediate EYE DROPS Verified 08/30/21 13:45 Antibiotics) (ONLY)-IRITIS Active Medications: Current Medications Acetaminophen (Acetaminophen 325 Mg Tablet) 650 mg PO Q6H PRN PRN Reason: Pain, Mild (Pain Scale 1-3) Albuterol/Ipratropium (Albuterol/Iprat 2.5/0.5mg 3 Ml Ampul.Neb) 3 ml INHALE RQ4H PRN PRN Reason: Shortness of Breath/Wheezing Albuterol/Ipratropium (Albuterol/Iprat 2.5/0.5mg 3 Ml Ampul.Neb) 3 ml INHALE RQ4H WHILE AWAKE ALEXANDRE Benzonatate (Benzonatate 100 Mg Capsule) 100 mg PO TID PRN PRN Reason: Cough Dextrose (Dextrose 50 % 25 Gm/50 Ml Syringe) 25 gm IVPUSH Q15M PRN; Protocol PRN Reason: per Hypoglycemia Standing Ord. Docusate Sodium (Docusate Sodium 100 Mg Capsule) 100 mg PO DAILY PRN PRN Reason: Constipation Enoxaparin Sodium (Enoxaparin Sodium 40 Mg/0.4 Ml Syringe) 40 mg SUBCUT Q24H ALEXANDRE Glucose (Glucose Gel 15 Gm Gel..Gram.) 15 gm PO Q15M PRN; Protocol PRN Reason: per Hypoglycemia Standing Ord. Guaifenesin/Dextromethorphan (Guaifenesin Dm 100/10/5 Ml 5 Ml Syrup) 5 ml PO Q4H PRN PRN Reason: Cough Insulin Human Lispro (Insulin Lispro 100 Unit/Ml 3 Ml Vial) 0 unit SUBCUT QIDACHS [facility]; Protocol Methylprednisolone Sodium Succinate (Methylprednisolone Sod Succ 40 Mg/Ml Vial) 40 mg IVPUSH Q12H ALEXANDRE Ondansetron HCl (Ondansetron Hcl 4 Mg/2 Ml Vial) 4 mg IVPUSH Q8H PRN PRN Reason: Nausea and Vomiting Sodium Chloride (0.9 % Sodium Chloride Flush 3 Ml Syringe) 3 ml IVFLUSH QSHIFT [facility] Zolpidem Tartrate (Zolpidem Tartrate 5 Mg Tablet) 5 mg PO ONCE ONE Stop: 09/11/21 01:28 Home Medications Medication Instructions Recorded Confirmed Last Taken Type cqljrlrstw-vcusyynncxhtt-pwjkghbf 1 tab PO Q6H PRN 12/25/20 08/01/21 Unknown History 50 mg-325 mg-40 mg tablet multivitamin (Daily Multi-Vitamin) 1 tab PO DAILY 12/25/20 08/01/21 Unknown History meclizine 25 mg tablet 25 mg PO TID PRN 01/02/21 08/01/21 Unknown History paroxetine HCl 10 mg tablet 10 mg PO DAILY 01/02/21 08/01/21 Unknown History ramelteon 8 mg tablet (Rozerem) 8 mg PO BEDTIME PRN 04/09/21 08/01/21 Unknown History amlodipine 5 mg tablet 5 mg PO DAILY 08/09/21 Unknown History fluticasone fur. 100 mcg-umeclid ea INHALATION DAILY 08/09/21 Unknown History 62.5 mcg-vilant 25 mcg inhalat.powder (Trelegy Ellipta) lisinopril 2.5 mg tablet 2.5 mg PO DAILY 08/09/21 Unknown History mirtazapine 15 mg tablet 15 mg PO BEDTIME 08/09/21 Unknown History docusate sodium 100 mg capsule 100 mg PO BID PRN cap 08/15/21 Unknown History (Colace) azithromycin 500 mg tablet 500 mg PO DAILY 08/30/21 Unknown History bupropion HCl 150 mg tablet,12 hr 150 mg PO QAM 08/30/21 Unknown History sustained-release Physical Exam Vital Signs and Narrative: Vital Signs: Last Vital Signs Temp 97.8 F 09/10/21 22:54 Pulse 21 L 09/11/21 01:07 Resp 16 09/11/21 01:07 BP 129/52 L 09/11/21 00:22 Pulse Ox 92 09/11/21 00:40 BMI result Body Mass Index 27.3 Const: General: cooperative and no acute distress Orientation/consciousness: patient oriented x3 Eyes: General: appearance normal, both eyes and all related structures Pupils: Equal, round and reactive pupils present Resp: Other: Wheezing, significant cough rhonchi bilaterally Effort & Inspection: normal respiratory effort Cardio: Rate: regular rate Rhythm: regular rhythm GI: Palpation (GI): Soft to palpation Auscultation: normal bowel sounds Skin: General skin exam: no rashes or lesions noted Neuro: General: patient oriented x3 Cranial nerves: Yes Equal, round and reactive pupils present Cognition (Neuro): normal cognition Extrem: General: Yes normal to inspection and Yes no pedal edema Results Labs CBC and Chem 7: 09/10/21 23:28 09/10/21 23:28 Labs: Laboratory Results - last 24 hr 09/10/21 09/10/21 09/10/21 23:28 23:28 23:28 MCV 86.0 MCH 26.0 L MCHC 30.3 L RDW 15.5 Plt Count 271 MPV 10.6 Immature Gran % (Auto) 0.4 Neut % (Auto) 47.5 Lymph % (Auto) 39.0 [place] % (Auto) 7.2 Eos % (Auto) 5.2 H Baso % (Auto) 0.7 Lymph # (Auto) 4.2 [place] # (Auto) 0.8 Eos # (Auto) 0.6 H Baso # (Auto) 0.1 Abs Immat Gran (auto) 0.04 H Absolute Neuts (auto) 5.1 Absolute Nucleated RBC 0.000 Nucleated RBC % (auto) 0.0 Anion Gap 14 Estim Creat Clear Calc 39.5 Estimated GFR 49 Random Glucose 135 H Calcium 9.3 Total Bilirubin 0.4 AST 40 H ALT 22 Alkaline Phosphatase 141 H Total Protein 7.8 Albumin 3.9 COVID-19 (JENNIFER) Negative COVID-19 Clin Com See Note Imaging Radiologist's Impressions: Impressions Chest X-Ray 09/10/21 23:50 IMPRESSION: No acute cardiopulmonary findings. Assessment and Plan (1) Acute exacerbation of COPD with asthma: Status: Acute (2) Acute respiratory failure with hypoxia: Status: Acute Plan 71-year-old female with past medical history of COPD/asthma presents to the hospital with complaints of shortness of breath, cough, swell sputum production will be admitted for further management of COPD exacerbation # acute respiratory failure with hypoxia - secondary to COPD exacerbation - will place om O2 and titrate down as tolerated - treat COPD as below - monitor respiratory status # acute COPD exacerbation - no evidence of pneumonia, COVID, fluids a, RSV negative - has dyspnea, cough, sputum production - will treat with Solu-Medrol, DuoNeb p.r.n. as well as scheduled - titrate O2 down to O2 level of 89-92% given her extensive past see history of COPD # history of coronary artery disease - continue aspirin, statin, - no chest pain at this time # DM - LDSSI - hold oral antihyperglycemics - diabetic diet This time pending med rec by pharmacy will continue all other home medications once medication reconciliation per from the pharmacy Given COPD exacerbation, patient will require a medically necessary 2 night admission for further management and monitoring as she will do poorly outpatient Quality Stroke Does the patient have a stroke diagnosis?: No VTE Prior VTE?: No VTE Risk Level:: Medical - moderate - high VTE Device Contraindication: Treatment Not Indicated VTE Drug Contraindication: N/A - Med Ordered
[2021-09-11 01:38] LABS: Influenza A PCR NEGATIVE (Negative); Influenza B PCR NEGATIVE (Negative); Resp Syncy Virus RNA Qual PCR NEGATIVE (Negative); SARS COV2 PCR INHOUSE NEGATIVE (Negative)
[2021-09-11] MEDS: Zolpidem Tartrate 5 MG TABLET PO ×2 (02:10→22:34)
[2021-09-11 02:48] LABS: Glucose, Whole Blood 256 mg/dL (60-115)
[2021-09-11 08:03] LABS: Glucose, Whole Blood 258 mg/dL (60-115)
--- NOTE | 2021-09-11 09:40 | PHA.MEDREC ---
Pharmacy Consult ? Medication Reconciliation Pharmacy has completed the medication reconciliation. Pt states that she takes most of her medications at night except for her twice daily dosing. Also stated that she takes zolpidem 5mg but PDMP shows that her last fill for that was in January of 2021. Vandana Gautam, PharmD
[2021-09-11] MEDS: methylPREDNISolone Sod Succ 40 MG/ML VIAL IVPUSH (09:52)
[2021-09-11] MEDS: Enoxaparin Sodium 40 MG/0.4 ML SYRINGE SUBCUT (09:54)
[2021-09-11] MEDS: Insulin Lispro 100 UNIT/ML 3 ML VIAL SUBCUT ×4 (09:55→20:47)
[2021-09-11] MEDS: 0.9 % Sodium Chloride Flush 3 ML SYRINGE IVFLUSH ×3 (09:57→23:38)
[2021-09-11] MEDS: Acetaminophen 325 MG TABLET 650 MG PO ×2 (10:00→15:49)
[2021-09-11] MEDS: guaiFENesin DM 100/10/5 ML 5 ML SYRUP PO (10:00)
--- NOTE | 2021-09-11 10:05 | PC.NURSE ---
pt a/o x 3 no sob/rell noted skin pink warm dry speaks in full sentences. amb (i) gait steady. lungs - exp wheezing to all lobes. pt aware of plan of care for transfer to room 347.
--- NOTE | 2021-09-11 11:30 | PM.EVENT ---
Event Note Date of Service: 09/11/21 Event Note: Patient admitted early this morning due to symptoms of shortness of breath and diagnosed to have COPD exacerbation, patient continued to have shortness of breath this morning requesting for nicotine patch smoke 4-5 cigarettes per day has been having dry cough denies allergy symptoms. On examination lungs diminished breath sounds hyperemic moist rash underneath abdominal folds and groin consistent with Connie assessment plan COPD exacerbation continue current treatment tobacco use disorder will place on low-dose nicotine patch Connie intertrigo placed on nystatin med reconciliation done
[2021-09-11 11:42] LABS: Glucose, Whole Blood 254 mg/dL (60-115)
[2021-09-11] MEDS: Nicotine 7 MG PATCH.TD24 TRANSDERMA (12:02)
[2021-09-11] MEDS: Nystatin Powder 15 GM BOTTLE 1 APPL TOPICAL ×2 (14:00→22:34)
[2021-09-11] MEDS: methylPREDNISolone Sod Succ 125 MG/2 ML VIAL 60 MG IVPUSH (15:50)
--- NOTE | 2021-09-11 15:55 | MHC.CM.PN ---
CM ATTEMPTED TO SEE PT TWICE PT RECEIVING NURSING CARE CM TO RETURN
[2021-09-11 16:12] LABS: Glucose, Whole Blood 158 mg/dL (60-115)
--- NOTE | 2021-09-11 16:38 | MHC.CM.PN ---
PT REPORTS SHE LIVES WITH A HOUSE MATE AND IS INDEPENDENT WITH CARE AND MOBILITY SHE REPORTS SHE HAS A NEBULIZER AT HOME AND NO OTHER DME SHE HAS A HCP ON FILE AND HER PCP IS [facility] PT REPORTS SHE IS COVID VACCINATED IMM DELIVERED CURRENT DC PLAN IS HOME WITH NO SERVICES HOUSE MATE, JEREMY, WILL TRANSPORT ([phone])
[2021-09-11 20:25] LABS: Glucose, Whole Blood 207 mg/dL (60-115)
[2021-09-11] MEDS: PARoxetine HCL 10 MG TABLET PO (20:45)
[2021-09-11] MEDS: Gabapentin 100 MG CAPSULE 200 MG PO (20:45)
[2021-09-11] MEDS: Topiramate 100 MG TABLET PO (20:45)
[2021-09-11] MEDS: Aspirin 81 MG TAB.CHEW PO (20:46)
[2021-09-11] MEDS: Atorvastatin Calcium 80 MG TABLET PO (20:46)
[2021-09-11] MEDS: lisinopriL 2.5 MG TABLET PO (20:46)
[2021-09-11] MEDS: Multivitamin TABLET 1 TAB PO (20:46)
[2021-09-11] MEDS: Cyanocobalamin (Vitamin B-12) 1,000 MCG TABLET 1000 MCG PO (20:46)
[2021-09-11] MEDS: metFORMIN HCl 500 MG TABLET 250 MG PO (20:46)
[2021-09-11] MEDS: Cholecalciferol (Vitamin D3) 25 MCG TABLET PO (20:46)
[2021-09-11] MEDS: Mirtazapine 15 MG TABLET PO (20:46)
[2021-09-12] VITALS (10 sets, daily range): BP systolic 106–136; BP diastolic 51–58; PULSE 80–97; RESP 14–20; TEMP 36.4–37; O2SAT 94–98
[2021-09-12] MEDS: methylPREDNISolone Sod Succ 40 MG/ML VIAL 60 MG IVPUSH (05:21)
[2021-09-12 07:41] LABS: Glucose, Whole Blood 183 mg/dL (60-115)
[2021-09-12] MEDS: Topiramate 100 MG TABLET PO ×2 (08:10→20:27)
[2021-09-12] MEDS: Enoxaparin Sodium 40 MG/0.4 ML SYRINGE SUBCUT (08:10)
[2021-09-12] MEDS: Gabapentin 100 MG CAPSULE 200 MG PO ×2 (08:10→20:27)
[2021-09-12] MEDS: Nicotine 7 MG PATCH.TD24 TRANSDERMA (08:11)
[2021-09-12] MEDS: Insulin Lispro 100 UNIT/ML 3 ML VIAL SUBCUT ×4 (08:11→22:26)
[2021-09-12] MEDS: 0.9 % Sodium Chloride Flush 3 ML SYRINGE IVFLUSH ×3 (08:17→23:45)
[2021-09-12] MEDS: Nystatin Powder 15 GM BOTTLE 1 APPL TOPICAL ×2 (08:18→20:27)
[2021-09-12] MEDS: Albuterol/Iprat 2.5/0.5MG 3 ML AMPUL.NEB INHALE ×4 (08:44→19:06)
--- NOTE | 2021-09-12 10:58 | HO.PM.IMPN ---
Subjective Subjective Date of Service: 09/12/21 Interval History: Feeling better this morning less shortness of breath, did not sleep well last night due to interruptions with vitals , denies chest pain, no acute events overnight. 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 Neck supple no JVD. CVS regular rate rhythm, Respiratory lungs diminished breath sound, no respiratory distress, no wheeze, no rhonchi. Gastrointestinal abdomen soft, nontender, bowel sounds audible, Extremities no edema. Neuro nonfocal Skin no rash Psych appropriate affect Objective Data Active Medications Acetaminophen (Acetaminophen 325 Mg Tablet) 650 mg PO Q6H PRN PRN Reason: Pain, Mild (Pain Scale 1-3) Last Admin: 09/11/21 15:49 Dose: 650 mg Documented by: JOS Albuterol/Ipratropium (Albuterol/Iprat 2.5/0.5mg 3 Ml Ampul.Neb) 3 ml INHALE RQ4H PRN PRN Reason: Shortness of Breath/Wheezing Albuterol/Ipratropium (Albuterol/Iprat 2.5/0.5mg 3 Ml Ampul.Neb) 3 ml INHALE RQ4H WHILE AWAKE [facility] Last Admin: 09/12/21 08:44 Dose: 3 ml Documented by: MELISSA Albuterol/Ipratropium (Albuterol/Iprat 2.5/0.5mg 3 Ml Ampul.Neb) 3 ml INHALE Q2H PRN PRN Reason: sob Last Admin: 09/11/21 22:10 Dose: 3 ml Documented by: ANU Aspirin (Aspirin 81 Mg Tab.Chew) 81 mg PO BEDTIME [facility] Last Admin: 09/11/21 20:46 Dose: 81 mg Documented by: JOS Atorvastatin Calcium (Atorvastatin Calcium 80 Mg Tablet) 80 mg PO BEDTIME [facility] Last Admin: 09/11/21 20:46 Dose: 80 mg Documented by: JOS Benzonatate (Benzonatate 100 Mg Capsule) 100 mg PO TID PRN PRN Reason: Cough Cyanocobalamin (Cyanocobalamin (Vitamin B-12) 1,000 Mcg Tablet) 1,000 mcg PO BEDTIME [facility] Last Admin: 09/11/21 20:46 Dose: 1,000 mcg Documented by: JOS Dextrose (Dextrose 50 % 25 Gm/50 Ml Syringe) 25 gm IVPUSH Q15M PRN; Protocol PRN Reason: per Hypoglycemia Standing Ord. Docusate Sodium (Docusate Sodium 100 Mg Capsule) 100 mg PO DAILY PRN PRN Reason: Constipation Enoxaparin Sodium (Enoxaparin Sodium 40 Mg/0.4 Ml Syringe) 40 mg SUBCUT Q24H [facility] Last Admin: 09/12/21 08:10 Dose: 40 mg Documented by: NAZ Gabapentin (Gabapentin 100 Mg Capsule) 200 mg PO BID [facility] Last Admin: 09/12/21 08:10 Dose: 200 mg Documented by: NAZ Glucose (Glucose Gel 15 Gm Gel..Gram.) 15 gm PO Q15M PRN; Protocol PRN Reason: per Hypoglycemia Standing Ord. Guaifenesin/Dextromethorphan (Guaifenesin Dm 100/10/5 Ml 5 Ml Syrup) 5 ml PO Q4H PRN PRN Reason: Cough Last Admin: 09/11/21 10:00 Dose: 5 ml Documented by: JOHN Insulin Human Lispro (Insulin Lispro 100 Unit/Ml 3 Ml Vial) 0 unit SUBCUT QIDACHS [facility]; Protocol Last Admin: 09/12/21 08:11 Dose: 2 unit Documented by: NAZ Lisinopril (Lisinopril 2.5 Mg Tablet) 2.5 mg PO BEDTIME [facility]; Protocol Last Admin: 09/11/21 20:46 Dose: 2.5 mg Documented by: JOS Meclizine HCl (Meclizine Hcl 25 Mg Tablet) 25 mg PO TID PRN PRN Reason: Dizziness Metformin HCl (Metformin Hcl 500 Mg Tablet) 250 mg PO BEDTIME [facility] Last Admin: 09/11/21 20:46 Dose: 250 mg Documented by: JOS Methylprednisolone Sodium Succinate (Methylprednisolone Sod Succ 40 Mg/Ml Vial) 60 mg IVPUSH Q12H [facility] Last Admin: 09/12/21 05:21 Dose: 60 mg Documented by: ROOSEVELT Comments: pt wanted sleep Mirtazapine (Mirtazapine 15 Mg Tablet) 15 mg PO BEDTIME [facility] Last Admin: 09/11/21 20:46 Dose: 15 mg Documented by: JOS Multivitamins/Vitamin C (Multivitamin Tablet) 1 tab PO BEDTIME [facility] Last Admin: 09/11/21 20:46 Dose: 1 tab Documented by: JOS Nicotine (Nicotine 7 Mg Patch.Td24) 7 mg TRANSDERMA DAILY [facility] Last Admin: 09/12/21 08:11 Dose: 7 mg Documented by: NAZ Nitroglycerin (Nitroglycerin 0.4 Mg Tab.Subl) 0.4 mg SUBLINGUAL Q5MX3 PRN PRN Reason: CHEST PAIN Non-Formulary Medication (Bupropion Hcl) 150 mg PO BEDTIME [facility] Non-Formulary Medication (Ursodiol) 500 mg PO BID [facility] Nystatin (Nystatin Powder 15 Gm Bottle) 1 appl TOPICAL BID [facility]; Protocol Last Admin: 09/12/21 08:18 Dose: 1 appl Documented by: NAZ Ondansetron HCl (Ondansetron Hcl 4 Mg/2 Ml Vial) 4 mg IVPUSH Q8H PRN PRN Reason: Nausea and Vomiting Paroxetine HCl (Paroxetine Hcl 10 Mg Tablet) 10 mg PO BEDTIME [facility] Last Admin: 09/11/21 20:45 Dose: 10 mg Documented by: JOS Pharmacy Consult (Consult Rx Perform Med Rec) 1 each MISCELLANE ONCE PRN PRN Reason: Consult order Polyethylene Glycol (Polyethylene Glycol 3350 17 Gm Powd.Pack) 17 gm PO BID PRN PRN Reason: Constipation Sodium Chloride (0.9 % Sodium Chloride Flush 3 Ml Syringe) 3 ml IVFLUSH QSHIFT [facility] Last Admin: 09/12/21 08:17 Dose: 3 ml Documented by: NAZ Topiramate (Topiramate 100 Mg Tablet) 100 mg PO BID [facility] Last Admin: 09/12/21 08:10 Dose: 100 mg Documented by: NAZ Vitamin D (Cholecalciferol (Vitamin D3) 25 Mcg Tablet) 25 mcg PO BEDTIME [facility] Last Admin: 09/11/21 20:46 Dose: 25 mcg Documented by: JOS Labs CBC & Chem 7: 09/10/21 23:28 09/10/21 23:28 Labs: Laboratory Results - last 24 hr 09/11/21 09/11/21 09/11/21 11:16 15:18 19:30 POC Glucose 254 H 158 H 207 H 09/12/21 07:37 POC Glucose 183 H Assessment and Plan (1) Acute respiratory failure with hypoxia: Status: Acute (2) Acute exacerbation of COPD with asthma: Status: Acute (3) Smoker: Status: Acute (4) DM type 2 (diabetes mellitus, type 2): Status: Acute Plan 71-year-old female with past medical history of COPD/asthma presents to the hospital with complaints of shortness of breath, cough, swell sputum production will be admitted for further management of COPD exacerbation # acute respiratory failure with hypoxia due to COPD exacerbation - less shortness of breath this morning, persistent diminished breath sound but better since yesterday - continue scheduled and as needed DuoNeb, continue IV Solu Medrol gradually wean wean oxygen as tolerated patient not on home oxygen # tobacco use disorder nicotine patch ordered, counseling done # history of coronary artery disease-no chest pain, continue aspirin, statin, # DM blood sugars elevated likely due to steroids on metformin and insulin sliding scale diabetic diet #?history of anxiety and depression continue home medication # code status full code # DVT prophylaxis on Lovenox Quality Stroke Does the patient have a stroke diagnosis?: No VTE Prior VTE?: No VTE Risk Level:: Medical - moderate - high VTE Device Contraindication: Treatment Not Indicated VTE Drug Contraindication: N/A - Med Ordered
[2021-09-12 11:36] LABS: Glucose, Whole Blood 217 mg/dL (60-115)
[2021-09-12 16:16] LABS: Glucose, Whole Blood 234 mg/dL (60-115)
[2021-09-12] MEDS: methylPREDNISolone Sod Succ 40 MG/ML VIAL IVPUSH (16:55)
[2021-09-12] MEDS: Acetaminophen 325 MG TABLET 650 MG PO (17:38)
[2021-09-12] MEDS: lisinopriL 2.5 MG TABLET PO (20:26)
[2021-09-12] MEDS: metFORMIN HCl 500 MG TABLET 250 MG PO (20:26)
[2021-09-12] MEDS: PARoxetine HCL 10 MG TABLET PO (20:27)
[2021-09-12] MEDS: Cholecalciferol (Vitamin D3) 25 MCG TABLET PO (20:27)
[2021-09-12] MEDS: Multivitamin TABLET 1 TAB PO (20:27)
[2021-09-12] MEDS: Atorvastatin Calcium 80 MG TABLET PO (20:27)
[2021-09-12] MEDS: Cyanocobalamin (Vitamin B-12) 1,000 MCG TABLET 1000 MCG PO (20:27)
[2021-09-12] MEDS: Mirtazapine 15 MG TABLET PO (20:27)
[2021-09-12] MEDS: Aspirin 81 MG TAB.CHEW PO (20:27)
[2021-09-12 21:29] LABS: Glucose, Whole Blood 264 mg/dL (60-115)
[2021-09-12] MEDS: Zolpidem Tartrate 5 MG TABLET PO (22:43)
--- NOTE | 2021-09-12 22:50 | PC.NURSE ---
Patient o2 sat 98% on 2L. O2 decreased to 1L.
[2021-09-13 03:46] VITALS: BP 130/63; PULSE 75; RESP 18; TEMP 36.2; O2SAT 98
[2021-09-13 04:00] VITALS: BP 125/63; PULSE 85; RESP 18; TEMP 36.4; O2SAT 97
[2021-09-13] MEDS: methylPREDNISolone Sod Succ 40 MG/ML VIAL IVPUSH (04:48)
[2021-09-13 07:41] VITALS: BP 116/58; PULSE 76; RESP 18; TEMP 36.8; O2SAT 94
[2021-09-13 07:57] VITALS: PULSE 83; RESP 18; O2SAT 93
[2021-09-13] MEDS: Albuterol/Iprat 2.5/0.5MG 3 ML AMPUL.NEB INHALE ×2 (07:57→11:31)
[2021-09-13 08:16] LABS: Glucose, Whole Blood 166 mg/dL (60-115)
[2021-09-13] MEDS: Insulin Lispro 100 UNIT/ML 3 ML VIAL SUBCUT (08:33)
[2021-09-13] MEDS: 0.9 % Sodium Chloride Flush 3 ML SYRINGE IVFLUSH (08:34)
[2021-09-13] MEDS: Nicotine 7 MG PATCH.TD24 TRANSDERMA (08:34)
[2021-09-13] MEDS: Enoxaparin Sodium 40 MG/0.4 ML SYRINGE SUBCUT (08:35)
[2021-09-13] MEDS: Gabapentin 100 MG CAPSULE 200 MG PO (08:37)
[2021-09-13] MEDS: Topiramate 100 MG TABLET PO (08:38)
[2021-09-13] MEDS: Nystatin Powder 15 GM BOTTLE 1 APPL TOPICAL (08:38)
--- NOTE | 2021-09-13 09:56 | PM.DS ---
DS: Providers Provider Date of Service: 09/13/21 Date of admission: 09/11/21 01:28 Primary care physician: Linda Matthews MD DS: Diagnosis Discharge Diagnosis (1) Acute respiratory failure with hypoxia: Status: Acute (2) Acute exacerbation of COPD with asthma: Status: Acute (3) Smoker: Status: Acute (4) DM type 2 (diabetes mellitus, type 2): Status: Acute DS: Summary Hospital Course Hospital Course: Chief Complaint: Shortness of breath 71-year-old female with past medical history of id/asthma, CAD, diabetes, HTN, HLD, active smoker, who presents to the hospital with complaints of shortness of breath, cough, sputum production.? Patient reports that for the past 5 days she developed shortness of breath.? Her symptoms worsen the past 3 days.? Patient tried her inhalers, with no relief.? Patient has cough, sputum production, no fever but some chills.? Patient denies any chest pain, no abdominal pain nausea or vomiting, no diarrhea constipation, no urinary symptoms and no lower extremity edema.? No orthopnea or PND On arrival to the hospital patient was found to be hypoxic with an O2 level of 88% on room air, Labs reviewed generally unremarkable, Chest x-ray shows no acute cardiopulmonary findings COVID-19 influenza and RSV negative Patient will be admitted for COPD exacerbation Hospital course 71-year-old female with past medical history of COPD/asthma presents to the hospital with complaints of shortness of breath, productive cough, was admitted for further management of acute hypoxic respiratory failure due to COPD exacerbation, patient treated with IV Solu Medrol scheduled and as needed DuoNeb and supportive care patient responded well to above treatment her oxygenation has improved currently finger oximetry 93% on room air a lung examination shows better air movement chest x-ray showed no infiltrate patient has been strongly advised to abstain from smoking and is being discharged home on nicotine patch, prednisone tapering dose and recommended to use DuoNeb updraft 4 times a day scheduled for the next few days and use as needed for shortness of breath. In regard to history of coronary artery disease she had no chest pain, continue aspirin, and statin. Diabetes mellitus type 2 blood sugars were elevated due to steroids recommend diabetic diet and home medication History of anxiety and depression continue home medications Time Spent with Patient Time attestation: Total time spent providing and/or coordinating discharge services: Discharge coordination time: Greater than 30 minutes Quality: Safe Use of Opioids Does Pt have an Active Cancer Diagnosis on the Problem List?: No Quality: Stroke Does the patient have a stroke diagnosis?: No Physical Exam Vital Signs: Vital Signs: Last Vital Signs Temp 98.2 F 09/13/21 07:41 Pulse 83 09/13/21 07:57 Resp 18 09/13/21 07:57 BP 116/58 L 09/13/21 07:41 Pulse Ox 94 09/13/21 07:41 BMI result Body Mass Index 27.3 Const: Other: General awake alert x3,in no acute distress.? Neck? supple no JVD. CVS? regular rate rhythm, Respiratory lungs clear to auscultation, no respiratory distress, no wheeze, no rhonchi. Gastrointestinal abdomen soft, nontender, bowel sounds audible, Extremities no edema. Neuro nonfocal Skin no rash Psych appropriate affect DS: Data Data Completed and Pending Labs on day of discharge: Laboratory Results - last 24 hr 09/12/21 09/12/21 09/12/21 11:20 15:56 20:42 POC Glucose 217 H 234 H 264 H 09/13/21 07:58 POC Glucose 166 H Discharge Plan Discharge Patient Disposition: Home, Self-Care Discharge Diagnosis: Acute respiratory failure with hypoxia Acute COPD exacerbation Tobacco use disorder Referrals: Linda Matthews MD [Primary Care Provider] - 1 Week Discharge Medications: New nicotine 7 mg/24 hr Patch 24 Hour 7 mg transdermal DAILY Qty: 30 0RF prednisone 20 mg tablet 20 mg PO DAILY Qty: 5 0RF Continued gabapentin 100 mg capsule 200 mg PO BID Qty: 360 3RF topiramate 100 mg tablet 100 mg PO BID Qty: 180 3RF nystatin 100,000 unit/gram powder 1 appl topical TID Qty: 60 1RF acetaminophen [Tylenol] 325 mg tablet 325 mg PO Q6H PRN (Reason: pain) Qty: 90 3RF (DME) FreeStyle Lite Strips Strip See Rx Instructions .Route Qty: 100 3RF Rx Instructions: test once a day (DME) lancets [FreeStyle Lancets] 28 gauge misc See Rx Instructions .Route Qty: 100 3RF Rx Instructions: test blood sugar once a day ursodiol 500 mg tablet 500 mg PO BID Qty: 90 2RF nitroglycerin 0.4 mg tablet, sublingual 1 tab sublingual NEEDED 0RF metformin 500 mg tablet 250 mg PO BEDTIME 0RF atorvastatin 80 mg tablet 80 mg PO BEDTIME 0RF meloxicam 15 mg tablet 15 mg PO BEDTIME 0RF cyanocobalamin (vitamin B-12) 1,000 mcg tablet 2 tab PO BEDTIME 0RF lidocaine 5 % adhesive patch,medicated 1 patch topical DAILY PRN (Reason: Pain) 0RF Rx Instructions: leave on most painful area for up to 12 hrs aspirin 81 mg tablet,chewable 1 tab PO BEDTIME 0RF polyethylene glycol 3350 [Miralax] 17 gram/dose powder 17 g PO BID PRN (Reason: Constipation) 0RF albuterol sulfate 90 mcg/actuation HFA aerosol inhaler 2 puff inhalation Q4H PRN (Reason: shortness of breath or wheezing) 0RF cholecalciferol (vitamin D3) 25 mcg (1,000 unit) tablet 25 mcg PO BEDTIME 0RF paroxetine HCl 10 mg tablet 10 mg PO BEDTIME 0RF meclizine 25 mg tablet 25 mg PO TID PRN (Reason: Dizziness) 0RF multivitamin [Daily Multi-Vitamin] Tablet 1 tab PO BEDTIME 0RF zislroqnpd-yzdsuwkehxlum-mxed 50-325-40 mg tablet 1 tab PO Q6H PRN (Reason: Pain) 0RF bupropion HCl 150 mg tablet sustained-release 12 hr 150 mg PO BEDTIME 0RF ramelteon [Rozerem] 8 mg tablet 8 mg PO BEDTIME PRN (Reason: insomnia) 0RF simethicone [Gas Relief (simethicone)] 125 mg tablet,chewable 125 mg PO TID PRN (Reason: abdominal distention) Qty: 60 1RF lisinopril 2.5 mg tablet 2.5 mg PO BEDTIME 0RF Trelegy Ellipta 100-62.5-25 mcg blister with device 1 inh inhalation BEDTIME 0RF mirtazapine 15 mg tablet 15 mg PO BEDTIME 0RF Discharge Orders: Discharge Order (Routine); Ordered 09/13/21 Ordered By: Jaquan Kerr Diet: diabetic diet Activity on Discharge: As tolerated Stand Alone Forms: Patient Portal Discharge page Care Plan Goals: Take DuoNeb updraft 4 times a day is scheduled for the next 3 days and then as needed, can use DuoNeb updraft as needed for shortness of breath, take prednisone for 5 more days use nicotine patch Health Concerns: Continue all home medications as before strongly recommend to abstain from smoking Plan of Treatment: Outpatient follow-up with primary care physician in 1-2 weeks Assessment: As per discharge summary
[2021-09-13 11:33] VITALS: PULSE 86; RESP 18; O2SAT 95
--- NOTE | 2021-09-13 11:36 | MHC.CM.PN ---
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
[2021-09-13 11:39] VITALS: BP 151/63; PULSE 88; RESP 20; TEMP 36.3; O2SAT 100
[2021-09-13 11:49] LABS: Glucose, Whole Blood 143 mg/dL (60-115)
== END 2021-09-13 12:43 | disposition home or self-care (01) | DRG 190 ==
LOC: HO.ED 09-11 01:02 → HO.EDOVER 09-11 01:35 → HO.S3 09-11 07:39
PROVIDERS: Admitting Provider Internal Medicine; Emergency Provider Internal Medicine; PCP Internal Medicine; Visit Provider Hospitalist
DX: J44.0 Chronic obstructive pulmonary disease with (acute) lower respiratory infection (principal); J96.01 Acute respiratory failure with hypoxia; I50.21 Acute systolic (congestive) heart failure; J44.1 Chronic obstructive pulmonary disease with (acute) exacerbation; F17.210 Nicotine dependence, cigarettes, uncomplicated; J20.9 Acute bronchitis, unspecified; E11.42 Type 2 diabetes mellitus with diabetic polyneuropathy; I25.10 Atherosclerotic heart disease of native coronary artery without angina pectoris; F41.9 Anxiety disorder, unspecified; F32.A Depression, unspecified; L30.4 Erythema intertrigo; Z20.822 Contact with and (suspected) exposure to COVID-19; Z98.1 Arthrodesis status; Z71.6 Tobacco abuse counseling; Z88.0 Allergy status to penicillin; Z88.2 Allergy status to sulfonamides; Z88.5 Allergy status to narcotic agent; Z88.7 Allergy status to serum and vaccine; Z88.8 Allergy status to other drugs, medicaments and biological substances; Z79.51 Long term (current) use of inhaled steroids; Z79.52 Long term (current) use of systemic steroids; Z79.82 Long term (current) use of aspirin; Z79.84 Long term (current) use of oral hypoglycemic drugs; Z79.899 Other long term (current) drug therapy
CPT/HCPCS: 0241U; 71045; 80053; 82947; 85025; 87635; 99285; J1650; J2920; J2930

== ENCOUNTER 2021-09-16 10:34 | Outpatient (REF) | payer MEDICARE, OTHER, SELFPAY ==
[2021-09-16 13:58] LABS: MANUAL DIFF FLAG NO
[2021-09-16 14:07] LABS: Basophils Absolute Auto 0.1 X10*3/uL (0.0-0.2); Basophils Percent Auto 0.8 % (0-2); Eosinophils Percent Auto 6.9 % (0-4); Hematocrit 42.6 % (37.0-47.0); Hemoglobin 12.4 g/dl (12.0-16.0); Imm Gran Abs Auto 0.17 X10*3/uL (0.00-0.03); Imm Gran Pct Auto 1.2 % (0.0-0.4); Lymphocytes Absolute Auto 4.5 X10*3/uL (1.2-4.9); Lymphocytes Percent Auto 31.6 % (20-40); Mean Corpuscular HGB Conc 29.1 g/dl (31.0-35.0); Mean Corpuscular Hemoglobin 25.4 pg (27.0-33.0); Mean Corpuscular Volume 87.3 fL (80.0-98.0); Mean Platelet Volume 12.7 fL (9.4-12.3); Monocytes Percent Auto 6.9 % (2-11); Neutrophils Absolute Auto 7.5 x10*3/uL (2.0-8.3); Neutrophils Percent Auto 52.6 % (45-73); Platelet Count 334 X10*3/uL (160-400); Red Blood Count 4.88 X10*6/uL (4.20-5.50); Red Cell Distribution Width 15.8 % (11.0-16.0); White Blood Count 14.1 X10*3/uL (4.8-10.8)
[2021-09-16 14:09] LABS: Prothrombin Time 11.3 SEC (9.9-13.0)
[2021-09-16 14:12] LABS: Partial Thromboplastin Time 31.8 SEC (24.1-38.0)
[2021-09-16 14:15] LABS: Estimated Average Glucose 169 mg/dL; Hemoglobin A1c % 7.5 %
[2021-09-16 14:24] LABS: Alanine Aminotransferase 54 U/L (0-31); Anion Gap 13 (12-20); Aspartate Amino Transferase 71 U/L (5-31); Blood Urea Nitrogen 20 mg/dL (9-16); Calcium 9.4 mg/dL (8.4-10.2); Carbon Dioxide 23 mmol/L (22-29); Chloride 108 mmol/L (96-108); Estimated Glomerular Filt Rate 54; Glucose Random 151 mg/dL (60-115); Potassium 4.3 mmol/L (3.3-5.1); Sodium 140 mmol/L (135-145)
[2021-09-16 14:28] LABS: Creatinine Urine 112.32 mg/dL; Microalbum/Creatinine Ratio Ur 45.4 ug/mg cr
[2021-09-16 14:29] LABS: Alanine Aminotransferase 58 U/L (0-31); Alkaline Phosphatase 130 U/L (39-117); Anion Gap 14 (12-20); Aspartate Amino Transferase 73 U/L (5-31); Bilirubin Total 0.3 mg/dL (0.0-1.0); Blood Urea Nitrogen 20 mg/dL (9-16); Calcium 9.6 mg/dL (8.4-10.2); Carbon Dioxide 24 mmol/L (22-29); Chloride 108 mmol/L (96-108); Cholesterol 279 mg/dL; Estimated Glomerular Filt Rate 53; Glucose Fasting 149 mg/dL (60-99); HDL Cholesterol 42 mg/dL; Potassium 4.3 mmol/L (3.3-5.1); Sodium 142 mmol/L (135-145); Total Protein 7.7 g/dL (6.5-8.0); Triglycerides 463 mg/dL
[2021-09-16 14:40] LABS: Vitamin D 25-OH Total 27.1 ng/mL (>30)
[2021-09-16 14:50] LABS: Folate 5.3 ng/mL (> or = 4.0); Vitamin B12 678 pg/mL (200-900)
[2021-09-19 00:02] LABS: Zinc 73 mcg/dL (60-130)
[2021-09-20 13:41] LABS: Vitamin B6 5.9 ng/mL (2.1-21.7)
[2021-09-20 18:46] LABS: Vitamin A 77 mcg/dL (38-98)
[2021-09-22 01:57] LABS: Nicotinamide 30 ng/mL; Vit B3 - Nicotinic Acid <20 ng/mL
[2021-09-23 22:32] LABS: Vitamin B5 (Pantothenic Acid) 59 ng/mL (<275)
== END 2021-09-16 10:35 | disposition home or self-care (01) ==
LOC: HO.HMGCLDS 10:34
PROVIDERS: Absent Provider Internal Medicine Cardiovascular Disease; PCP Internal Medicine; Visit Provider Internal Medicine Gastroenterology
DX: E11.9 Type 2 diabetes mellitus without complications (principal); E53.8 Deficiency of other specified B group vitamins; J44.9 Chronic obstructive pulmonary disease, unspecified; K75.81 Nonalcoholic steatohepatitis (NASH); E78.5 Hyperlipidemia, unspecified; I10 Essential (primary) hypertension
CPT/HCPCS: 36415; 80048; 80053; 80061; 82043; 82306; 82607; 82746; 83036; 84207; 84450; 84460; 84590; 84591; 84630; 85025; 85610; 85730

== ENCOUNTER 2021-10-15 10:57 | Outpatient (REF) | payer MEDICARE, OTHER, SELFPAY ==
[2021-10-15 12:16] LABS: Prothrombin Time 11.3 SEC (9.9-13.0)
[2021-10-19 13:07] LABS: Vitamin C 1.1 mg/dL (0.3-2.7)
== END 2021-10-15 10:58 | disposition home or self-care (01) ==
LOC: HO.LAB 10:57
PROVIDERS: PCP Internal Medicine; Visit Provider Internal Medicine Gastroenterology
DX: K75.81 Nonalcoholic steatohepatitis (NASH) (principal)
CPT/HCPCS: 36415; 82180; 85610

== ENCOUNTER 2021-11-14 08:06 | Inpatient (IN) | payer MEDICARE, OTHER, SELFPAY ==
[2021-11-14] VITALS (10 sets, daily range): BP systolic 110–162; BP diastolic 53–70; PULSE 83–110; RESP 16–28; TEMP 36.6–36.9; O2SAT 94–99; BMI 30.8
--- NOTE | 2021-11-14 | ECG_ITS ---
Test Reason : dyspnea Blood Pressure : / mmHG Vent. Rate : 091 BPM Atrial Rate : 091 BPM P-R Int : 126 ms QRS Dur : 128 ms QT Int : 392 ms P-R-T Axes : -21 070 009 degrees QTc Int : 482 ms Normal sinus rhythm Right bundle branch block Abnormal ECG When compared with ECG of 14-NOV-2021 08:23, No significant change was found Referred By: Chadd Maharaj Electronically Signed By:Julio Rockwell
--- NOTE | ~2021-11-14 | XR_ITS ---
EXAMINATION: XR CHEST CLINICAL INFORMATION: Dyspnea COMPARISON: 09/10/2021 TECHNIQUE: Frontal view of the chest was obtained. FINDINGS: Heart and pulmonary vessels appear normal. No infiltrates or lung masses are seen. Trace pleural effusions may be present as evidenced by some minimal blunting of the lateral costophrenic sulci. Fusion hardware again noted in the lower cervical spine. Marked calcific atherosclerotic changes in the aortic arch without dilatation. XR/XR chest 1V IMPRESSION: No acute intrathoracic disease.
--- NOTE | 2021-11-14 08:17 | ECG_ITS ---
Test Reason : dyspnea Blood Pressure : / mmHG Vent. Rate : 089 BPM Atrial Rate : 089 BPM P-R Int : 134 ms QRS Dur : 128 ms QT Int : 368 ms P-R-T Axes : 059 084 009 degrees QTc Int : 447 ms Normal sinus rhythm Right bundle branch block Abnormal ECG When compared with ECG of 04-NOV-2020 07:47, No significant changes seen Referred By: Augustina Restrepo Electronically Signed By:Julio Rockwell
--- NOTE | 2021-11-14 08:29 | ED.SOB ---
HPI - SOB/Dyspnea General Chief Complaint: Dyspnea Stated Complaint: SHORTNESS OF BREATH Time Seen by Provider: 11/14/21 08:15 Source: patient and old records reviewed Mode of arrival: EMS Limitations: no limitations History of Present Illness HPI Narrative: 71 yo female with hx of COPD, CAD, HLD, DM, CRHISTINE, chronic smoker reports 2 days of worsening dyspnea, cough, fevers at home - EMS states the patient was found to be in mid 80s at home responded to neb and IV solumedrol en route. The patient notes she has been taking a prednisone taper for neck pain via PCP. MD elicited complaint: shortness of breath Pertinent past history: COPD Onset (ago): day(s) (2) Context: smoke/fume exposure Timing: progressively worsening Severity: moderate Exacerbating factors: exertion and coughing Relieving factors: oxygen and bronchodilators Known history of: COPD Associated symptoms: cough, wheezing and sputum production Treatment prior to arrival: oxygen and bronchodilator Related Data Home Medications Medication Instructions Recorded Confirmed [id number] 1 tab PO Q6H PRN Pain 12/25/20 11/14/21 50 mg-325 mg-40 mg tablet multivitamin (Daily Multi-Vitamin) 1 tab PO BEDTIME 12/25/20 11/06/21 meclizine 25 mg tablet 25 mg PO TID PRN Dizziness 01/02/21 11/06/21 paroxetine HCl 10 mg tablet 10 mg PO BEDTIME 01/02/21 11/06/21 ramelteon 8 mg tablet (Rozerem) 8 mg PO BEDTIME PRN insomnia 04/09/21 11/06/21 fluticasone fur. 100 mcg-umeclid 1 inh inhalation BEDTIME 08/09/21 11/06/21 62.5 mcg-vilant 25 mcg inhalat.powder (Trelegy Ellipta) lisinopril 2.5 mg tablet 2.5 mg PO BEDTIME 08/09/21 11/06/21 mirtazapine 15 mg tablet 15 mg PO BEDTIME 08/09/21 11/06/21 bupropion HCl 150 mg tablet,12 hr 150 mg PO BEDTIME 08/30/21 11/14/21 sustained-release aspirin 81 mg chewable tablet 1 tab PO BEDTIME 09/11/21 11/06/21 atorvastatin 80 mg tablet 80 mg PO BEDTIME 09/11/21 11/06/21 cholecalciferol (vitamin D3) 25 25 mcg PO BEDTIME 09/11/21 11/06/21 mcg (1,000 unit) tablet cyanocobalamin (vitamin B-12) 2 tab PO BEDTIME 09/11/21 11/06/21 1,000 mcg tablet lidocaine 5 % topical patch 1 patch topical DAILY PRN Pain 09/11/21 11/06/21 nitroglycerin 0.4 mg sublingual 1 tab sublingual NEEDED angina 09/11/21 11/06/21 tablet polyethylene glycol 3350 17 17 g PO BID PRN Constipation 09/11/21 11/06/21 gram/dose oral powder (Miralax) isosorbide mononitrate 30 mg 30 mg PO DAILY 09/25/21 11/14/21 tablet,extended release 24 hr zolpidem 5 mg tablet 5 mg PO BEDTIME PRN Insomnia 11/06/21 11/14/21 Previous Rx's Medication Instructions Recorded gabapentin 100 mg capsule 200 mg PO BID #360 caps 01/08/21 topiramate 100 mg tablet 100 mg PO BID #180 tabs 01/08/21 simethicone 125 mg chewable tablet 125 mg PO TID PRN abdominal 04/09/21 (Gas Relief (simethicone)) distention #60 tabs nystatin 100,000 unit/gram topical 1 appl topical TID #60 grams 04/30/21 powder acetaminophen 325 mg tablet 325 mg PO Q6H PRN pain #90 tabs 08/01/21 (Tylenol) lancets 28 gauge (FreeStyle #100 ea 08/07/21 Lancets) ursodiol 500 mg tablet 500 mg PO BID #90 tabs 08/21/21 nicotine 7 mg/24 hr daily 7 mg transdermal DAILY #30 boxes 09/13/21 transdermal patch blood sugar diagnostic (FreeStyle #100 ea 09/16/21 Lite Strips) metformin 750 mg tablet,extended 750 mg PO DAILY #90 tabs 09/25/21 release 24 hr albuterol sulfate 90 mcg/actuation 2 puff inhalation Q4H PRN 11/06/21 aerosol inhaler shortness of breath or wheezing #8.5 grams cetirizine 10 mg tablet (Zyrtec) 10 mg PO DAILY #30 tabs 11/06/21 prednisone 10 mg tablet 10 mg PO DAILY #30 tabs 11/06/21 Allergies Allergy/AdvReac Type Severity Reaction Status Date / Time amoxicillin [AMOXICILLIN] Allergy Mild DIARRHEA Verified 11/06/21 10:12 Darvocet A500 Allergy Unknown upset Verified 11/06/21 10:12 stomach melatonin Allergy Unknown Nausea and Verified 11/06/21 10:12 Vomiting oxycodone [From PERCOCET] Allergy Unknown NAUSEA,VOMI Verified 11/06/21 10:12 TING Propoxyphene HCl Allergy Unknown upset Verified 11/06/21 10:12 stomach influenza virus vaccine, AdvReac Intermediate NAUSEA,DIAR Verified 11/06/21 10:12 specific WU [FLU VACCINE] Iodinated Contrast Media AdvReac Intermediate NAUSEA,DIZZINESS,CHEST Verified 11/06/21 10:12 [IV CONTRAST] PRESSURE lactose [LACTOSE] AdvReac Intermediate GI UPSET Verified 11/06/21 10:12 metronidazole [From FLAGYL] AdvReac Intermediate NAUSEA & Verified 11/06/21 10:12 VOMITING Sulfa (Sulfonamide AdvReac Intermediate EYE DROPS Verified 11/06/21 10:12 Antibiotics) (ONLY)-IRITIS Review of Systems Review of Systems: Constitutional : No Fever, No Chills ENT/Mouth : No sore throat, No Rhinorrhea, No Swallowing Difficulty Eyes: No Eye Pain, No Swelling, No Redness Cardiovascular : No Chest Pain, positive SOB, No Orthopnea, no Edema Respiratory : pos Cough, pos Sputum, pos Wheezing, positive dyspnea Gastrointestinal : No Nausea, No Vomiting, No Diarrhea, No abdominal Pain, No Hematochezia, No Melena Genitourinary : No Dysuria, No Urinary Frequency, No Hematuria Musculoskeletal : No joint pain, No Myalgias Skin : No Skin Lesions, No rash Neuro : No Weakness, No Numbness, No Dizziness, No Headache Psych : No Anxiety/Panic, No Depression Heme/Lymph: No Bruising, No Lymphadenopathy Endocrine : No Polyuria, No Polydipsia All other systems reviewed and are negative [facility] Past Medical History Attestation statement: The following information was validated with the patient. Medical History Anxiety CAD (coronary artery disease) Cervical stenosis of spine COPD (chronic obstructive pulmonary disease) Depression Diabetes Diabetic polyneuropathy associated with type 2 diabetes mellitus DM type 2 (diabetes mellitus, type 2) DM type 2 (diabetes mellitus, type 2) HTN (hypertension) Hyperlipidemia Left leg swelling Low vitamin D level Migraine headache Neck pain Nonalcoholic steatohepatitis (CHRISTINE) Pulmonary nodule Smoker Vertigo Vitamin B 12 deficiency Vitamin B12 deficiency Surgical History Fusion of spine of cervical region History of carpal tunnel release History of hysterectomy Family History Family History Mother CVD (cardiovascular disease) CVA (cerebral vascular accident) Father CVD (cardiovascular disease) Social History Social History Household Members: Friend(s) 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 Housing: House Do you presently have visiting nurse or other home services: No Alcohol intake: never Patient Tobacco Use Status: Current everyday Tobacco user Tobacco use type: Cigarette Cigarettes Per Day: 4 Years Smoked: 62 Smoked in Last 30 Days: Yes e-Cigarette/Vaping Use: Never Used Use of substances other than those prescribed or required for medical reasons: No Advance Directives: Yes Advance Directives Information Provided: Yes Advance Directives on File: No Advance Directives Date on File: 11/05/20 service: No Current occupational status: retired Current occupation: Right Handed Cognitive needs: No Hearing needs: No Vision needs: Yes Physical Exam Vital Signs: Vital Signs: Last Vital Signs Temp 97.8 F 11/14/21 08:11 Pulse 88 11/14/21 08:38 Resp 16 11/14/21 08:38 Pulse Ox 94 11/14/21 08:11 O2 Del Method 11/14/21 08:11 BMI result Body Mass Index 30.8 Appearance: Alert. Oriented X3. Mild acute distress. Eyes: Pupils equal, round and reactive to light. ENT: Pharynx normal. Neck: Normal inspection. Neck supple. CVS: tachycardic heart rate and rhythm. Pulses normal. Respiratory: Mild respiratory distress - tachypnea and retractions. Breath sounds very diminished throughout Abdomen: Soft and non-tender. Skin: Skin warm and dry. Normal skin color. Normal skin turgor. Extremities: No lower extremity edema. No calf ttp Neuro: Oriented X 3. No motor deficit. No sensory deficit. Course Course Course Narrative: lactic acidosis due to hypoxia/albuterol use and not infection or severe sepsis patient still tachypneic will need admission for further treatments MDM - SOB/Dyspnea MDM Narrative Medical decision making narrative: 71 yo female with hx of COPD, CAD, HLD, DM, CHRISTINE, chronic smoker at this time she is tachypneic and diminished. Will need labs, cultures lactic acid, 5mg neb, already given IV steroids en route. CXR for pneumonia ordered. Suspect COPD exacerbation at this time. Dispo per results and clinical improvement with therapy in ED. Lab Data Result diagrams: 11/14/21 08:37 11/14/21 08:37 Labs: Lab Results 11/14/21 11/14/21 11/14/21 Range/Units 08:36 08:37 08:37 WBC 14.8 H (4.8-10.8) X10*3/uL RBC 4.16 L (4.20-5.50) X10*6/uL Hgb 10.5 L (12.0-16.0) g/dl Hct 34.7 L (37.0-47.0) % MCV 83.4 (80.0-98.0) fL MCH 25.2 L (27.0-33.0) pg MCHC 30.3 L (31.0-35.0) g/dl RDW 16.1 H (11.0-16.0) % Plt Count 279 (160-400) X10*3/uL MPV 10.9 (9.4-12.3) fL Immature Gran % (Auto) 3.7 H (0.0-0.4) % Neut % (Auto) 56.0 (45-73) % Lymph % (Auto) 31.5 (20-40) % [place] % (Auto) 6.8 (2-11) % Eos % (Auto) 1.6 (0-4) % Baso % (Auto) 0.4 (0-2) % Lymph # (Auto) 4.7 (1.2-4.9) X10*3/uL [place] # (Auto) 1.0 (0.1-1.2) X10*3/uL Eos # (Auto) 0.2 (0.0-0.4) X10*3/uL Baso # (Auto) 0.1 (0.0-0.2) X10*3/uL Abs Immat Gran (auto) 0.54 H (0.00-0.03) X10*3/uL Absolute Neuts (auto) 8.3 (2.0-8.3) x10*3/uL Absolute Nucleated RBC 0.000 (0.0-0.012) X10*3/uL Nucleated RBC % (auto) 0.0 (0.0-0.2) /100WBC PT (10.0-13.1) SEC INR (0.9-1.1) VBG pH (7.32-7.43) VBG pCO2 mmHg VBG pO2 mmHg VBG HCO3 (22-26) mmol/L VBG O2 Saturation % VBG Base Excess mmol/L Sodium 143 (135-145) mmol/L Potassium 4.1 (3.3-5.1) mmol/L Chloride 108 (96-108) mmol/L Carbon Dioxide 25 (22-29) mmol/L Anion Gap 14 (12-20) BUN 21 H (9-16) mg/dL Creatinine 0.88 (0.5-1.4) mg/dL Estim Creat Clear Calc 52.4 Estimated GFR > 60 Random Glucose 146 H (60-115) mg/dL Lactic Acid (0.5-2.0) mmol/L Calcium 9.2 (8.4-10.2) mg/dL Magnesium 1.9 (1.6-2.6) mg/dL Total Bilirubin 0.4 (0.0-1.0) mg/dL Direct Bilirubin 0.2 (0.0-0.5) mg/dL AST 23 D (5-31) U/L ALT 31 (0-31) U/L Alkaline Phosphatase 100 D (39-117) U/L Troponin I High Sens 22.8 H (<3.5-17.0) ng/L B-Natriuretic Peptide (<100) pg/mL Total Protein 7.0 (6.5-8.0) g/dL Albumin 3.9 (3.5-5.0) g/dL COVID-19 (JENNIFER) (Negative) COVID-19 Clin Com 11/14/21 11/14/21 11/14/21 Range/Units 08:37 08:37 08:38 WBC (4.8-10.8) X10*3/uL RBC (4.20-5.50) X10*6/uL Hgb (12.0-16.0) g/dl Hct (37.0-47.0) % MCV (80.0-98.0) fL MCH (27.0-33.0) pg MCHC (31.0-35.0) g/dl RDW (11.0-16.0) % Plt Count (160-400) X10*3/uL MPV (9.4-12.3) fL Immature Gran % (Auto) (0.0-0.4) % Neut % (Auto) (45-73) % Lymph % (Auto) (20-40) % [place] % (Auto) (2-11) % Eos % (Auto) (0-4) % Baso % (Auto) (0-2) % Lymph # (Auto) (1.2-4.9) X10*3/uL [place] # (Auto) (0.1-1.2) X10*3/uL Eos # (Auto) (0.0-0.4) X10*3/uL Baso # (Auto) (0.0-0.2) X10*3/uL Abs Immat Gran (auto) (0.00-0.03) X10*3/uL Absolute Neuts (auto) (2.0-8.3) x10*3/uL Absolute Nucleated RBC (0.0-0.012) X10*3/uL Nucleated RBC % (auto) (0.0-0.2) /100WBC PT 10.1 (10.0-13.1) SEC INR 0.9 (0.9-1.1) VBG pH (7.32-7.43) VBG pCO2 mmHg VBG pO2 mmHg VBG HCO3 (22-26) mmol/L VBG O2 Saturation % VBG Base Excess mmol/L Sodium (135-145) mmol/L Potassium (3.3-5.1) mmol/L Chloride (96-108) mmol/L Carbon Dioxide (22-29) mmol/L Anion Gap (12-20) BUN (9-16) mg/dL Creatinine (0.5-1.4) mg/dL Estim Creat Clear Calc Estimated GFR Random Glucose (60-115) mg/dL Lactic Acid 2.1 H* (0.5-2.0) mmol/L Calcium (8.4-10.2) mg/dL Magnesium (1.6-2.6) mg/dL Total Bilirubin (0.0-1.0) mg/dL Direct Bilirubin (0.0-0.5) mg/dL AST (5-31) U/L ALT (0-31) U/L Alkaline Phosphatase (39-117) U/L Troponin I High Sens (<3.5-17.0) ng/L B-Natriuretic Peptide 370 H (<100) pg/mL Total Protein (6.5-8.0) g/dL Albumin (3.5-5.0) g/dL COVID-19 (JENNIFER) (Negative) COVID-19 Clin Com 11/14/21 11/14/21 Range/Units 08:38 08:38 WBC (4.8-10.8) X10*3/uL RBC (4.20-5.50) X10*6/uL Hgb (12.0-16.0) g/dl Hct (37.0-47.0) % MCV (80.0-98.0) fL MCH (27.0-33.0) pg MCHC (31.0-35.0) g/dl RDW (11.0-16.0) % Plt Count (160-400) X10*3/uL MPV (9.4-12.3) fL Immature Gran % (Auto) (0.0-0.4) % Neut % (Auto) (45-73) % Lymph % (Auto) (20-40) % [place] % (Auto) (2-11) % Eos % (Auto) (0-4) % Baso % (Auto) (0-2) % Lymph # (Auto) (1.2-4.9) X10*3/uL [place] # (Auto) (0.1-1.2) X10*3/uL Eos # (Auto) (0.0-0.4) X10*3/uL Baso # (Auto) (0.0-0.2) X10*3/uL Abs Immat Gran (auto) (0.00-0.03) X10*3/uL Absolute Neuts (auto) (2.0-8.3) x10*3/uL Absolute Nucleated RBC (0.0-0.012) X10*3/uL Nucleated RBC % (auto) (0.0-0.2) /100WBC PT (10.0-13.1) SEC INR (0.9-1.1) VBG pH 7.39 (7.32-7.43) VBG pCO2 39 mmHg VBG pO2 177 mmHg VBG HCO3 24 (22-26) mmol/L VBG O2 Saturation 100.0 % VBG Base Excess -0.3 mmol/L Sodium (135-145) mmol/L Potassium (3.3-5.1) mmol/L Chloride (96-108) mmol/L Carbon Dioxide (22-29) mmol/L Anion Gap (12-20) BUN (9-16) mg/dL Creatinine (0.5-1.4) mg/dL Estim Creat Clear Calc Estimated GFR Random Glucose (60-115) mg/dL Lactic Acid (0.5-2.0) mmol/L Calcium (8.4-10.2) mg/dL Magnesium (1.6-2.6) mg/dL Total Bilirubin (0.0-1.0) mg/dL Direct Bilirubin (0.0-0.5) mg/dL AST (5-31) U/L ALT (0-31) U/L Alkaline Phosphatase (39-117) U/L Troponin I High Sens (<3.5-17.0) ng/L B-Natriuretic Peptide (<100) pg/mL Total Protein (6.5-8.0) g/dL Albumin (3.5-5.0) g/dL COVID-19 (JENNIFER) Negative (Negative) COVID-19 Clin Com See Note ECG Data Attestation: I personally reviewed and interpreted this ECG as follows: ECG interpretation date: 11/14/21 ECG interpretation time: 08:30 Interpretation: Rate: 89 Rhythm: NSR [place]: normal Normal P waves. Normal MANOJ. NSIVCD ST T wave : no ROBERTO, nonspecific qTC: normal prior studies: no acute ischemia The study has been interpreted contemporaneously by me. Critical Care Time Critical Care Time Critical Care Time: Yes Total Critical Care Time: 45 Attestation: 5mg neb, repeat labs, CXR, reassessments I attest to this time spent taking care of the patient Discharge Plan Discharge Clinical Impression: Acute exacerbation of chronic obstructive pulmonary disease, Acidosis, lactic, Acute dyspnea Patient Disposition: Admitted As Inpatient
[2021-11-14] MEDS: Albuterol Sulfate (0.083%) 2.5 MG/3 ML VIAL.NEB 5 MG INHALE (08:33)
[2021-11-14 08:42] LABS: MANUAL DIFF FLAG NO
[2021-11-14 08:45] LABS: VBG Base Excess -0.3 mmol/L; VBG HCO3 24 mmol/L (22-26); VBG pCO2 39 mmHg; VBG pH 7.39 (7.32-7.43); VBG pO2 177 mmHg
[2021-11-14 08:47] LABS: Basophils Absolute Auto 0.1 X10*3/uL (0.0-0.2); Basophils Percent Auto 0.4 % (0-2); Eosinophils Absolute Auto 0.2 X10*3/uL (0.0-0.4); Eosinophils Percent Auto 1.6 % (0-4); Hematocrit 34.7 % (37.0-47.0); Hemoglobin 10.5 g/dl (12.0-16.0); Imm Gran Abs Auto 0.54 X10*3/uL (0.00-0.03); Imm Gran Pct Auto 3.7 % (0.0-0.4); Lymphocytes Absolute Auto 4.7 X10*3/uL (1.2-4.9); Lymphocytes Percent Auto 31.5 % (20-40); Mean Corpuscular HGB Conc 30.3 g/dl (31.0-35.0); Mean Corpuscular Hemoglobin 25.2 pg (27.0-33.0); Mean Corpuscular Volume 83.4 fL (80.0-98.0); Mean Platelet Volume 10.9 fL (9.4-12.3); Monocytes Percent Auto 6.8 % (2-11); Neutrophils Absolute Auto 8.3 x10*3/uL (2.0-8.3); Platelet Count 279 X10*3/uL (160-400); Red Blood Count 4.16 X10*6/uL (4.20-5.50); Red Cell Distribution Width 16.1 % (11.0-16.0); White Blood Count 14.8 X10*3/uL (4.8-10.8)
[2021-11-14 08:48] LABS: Venous Blood Gas Refer to POC result
[2021-11-14 08:49] LABS: INTERNATIONAL NORM RATIO 0.9 (0.9-1.1); Prothrombin Time 10.1 SEC (10.0-13.1)
[2021-11-14 08:58] LABS: Alanine Aminotransferase 31 U/L (0-31); Albumin Level 3.9 g/dL (3.5-5.0); Alkaline Phosphatase 100 U/L (39-117); Anion Gap 14 (12-20); Aspartate Amino Transferase 23 U/L (5-31); Bilirubin Direct 0.2 mg/dL (0.0-0.5); Bilirubin Total 0.4 mg/dL (0.0-1.0); Blood Urea Nitrogen 21 mg/dL (9-16); Calcium 9.2 mg/dL (8.4-10.2); Carbon Dioxide 25 mmol/L (22-29); Chloride 108 mmol/L (96-108); Creatinine Clr Calc Pharmacy 52.4; Estimated Glomerular Filt Rate > 60; Glucose Random 146 mg/dL (60-115); Magnesium 1.9 mg/dL (1.6-2.6); Potassium 4.1 mmol/L (3.3-5.1); Sodium 143 mmol/L (135-145)
[2021-11-14 09:04] LABS: Lactic Acid 2.1 mmol/L (0.5-2.0)
[2021-11-14 09:04] LABS: Troponin-I High Sensitivity 22.8 ng/L (<3.5-17.0)
[2021-11-14 09:05] LABS: B Type Natriuretic Peptide 370 pg/mL (<100)
[2021-11-14 09:13] LABS: COVID-19 Test Negative (Negative)
[2021-11-14] MEDS: cefTRIAXone sodium 1 GM in 0.9 % Sodium Chloride 50 ML IV (09:25)
--- NOTE | 2021-11-14 09:39 | PC.NURSE ---
pt alert and oriented, skin pwd, respirations even but slightly increased breathing anywhere from 22-26 respirations a min, ls diminished and wheezing through out, pt put on 2l via nasal cannual because pt is reporting increased difficulty in breathing sating at 95% on room air, some pulling noticed in the abd muscle, ns on the monitor urine sample obtained before the abx hanged but the abx was scanned prior to the ua stickers
[2021-11-14 09:50] LABS: Appearance Urine CLEAR; Color Urine YELLOW; Glucose Urine UA NEG (NEG); Leukocyte Esterase Urine 1+ (NEG); Nitrite Urine NEG (NEG); Specific Gravity - Urine 1.025 (1.005-1.025); UACC Culture Trigger YES; Urine Blood NEG (NEG); Urine Ketones NEG (NEG); Urine Protein 2+ MG/DL (NEG-TRACE)
[2021-11-14 10:05] LABS: Bacteria Urine TRACE /LPF; RBC Urine 0 /HPF (0); Squamous Epithelial Cell Urine 1+ /LPF; WBC Urine 30-49 /HPF (0-4)
--- NOTE | 2021-11-14 10:21 | PHA.MEDREC ---
Pharmacy Consult ? Medication Reconciliation Pharmacy has completed the medication reconciliation. Patient on a prednisone taper, and todays was suppose to be the last day of 20 mg then start 10 mg tomorrow. patient reprot gabapentin increase to 300 mg BID however her last fill was ~ 90 days ago for 200 mg BID. If she increase it she would not have any left. Reports she has not taken her vitamins in awhile even though she is suppose to be. Reports taking paroxetine but last filled in August,. Colleen Boo, CherylD
--- NOTE | 2021-11-14 10:32 | P.HPHOSP_ITS ---
History of Present Illness Date of Service: 11/14/21 Chief Complaint: shortness of breath This is a 71 yo F with a PMH of COPD, CAD, DM, HTN, Tobacco use, Cervical stenosis who presents to the ED with a 1 day history of shorntess of breath and intermittent non-productive cough. The patient, who reports she is an active smoker and has been recently smoking about 1/2 PPD due to increased personal stress, reports that she typically does feel more short of breath as the day progresses. On the evening prior to admission, she felt short of breath (even at rest) but thought she would get better by the morning. However, when she woek up, she felt even worse and could barely speak a few words without trouble breathing. She reports wheezing. She reports subjective fevers for the previous few days. She denies any anginal symptoms. She denies any orthopnea, LE edema or weight gain. She denies any known sick contacts. Per ED provider notes -- the patient's oxygen saturation was in the 80s when EMS arrived. They have nebs / IV solu-medrol en route to the ED. In the ED, she received an addtional round of nebulizer and empiric IV antibotics. She continued to be symptomatic and hence will be observed overnight. Review of Systems Review of Systems: negative except HPI PMFSH Medical History Anxiety CAD (coronary artery disease) Cervical stenosis of spine COPD (chronic obstructive pulmonary disease) Depression Diabetes Diabetic polyneuropathy associated with type 2 diabetes mellitus DM type 2 (diabetes mellitus, type 2) DM type 2 (diabetes mellitus, type 2) HTN (hypertension) Hyperlipidemia Left leg swelling Low vitamin D level Migraine headache Neck pain Nonalcoholic steatohepatitis (CHRISTINE) Pulmonary nodule Smoker Vertigo Vitamin B 12 deficiency Vitamin B12 deficiency Family History Mother CVD (cardiovascular disease) CVA (cerebral vascular accident) Father CVD (cardiovascular disease) Surgical History Fusion of spine of cervical region History of carpal tunnel release History of hysterectomy Social History Household Members: Friend(s) 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 Housing: House Do you presently have visiting nurse or other home services: No Alcohol intake: never Patient Tobacco Use Status: Current everyday Tobacco user Tobacco use type: Cigarette Cigarettes Per Day: 4 Years Smoked: 62 Smoked in Last 30 Days: Yes e-Cigarette/Vaping Use: Never Used Use of substances other than those prescribed or required for medical reasons: No Advance Directives: Yes Advance Directives Information Provided: Yes Advance Directives on File: No Advance Directives Date on File: 11/05/20 service: No Current occupational status: retired Current occupation: Right Handed Cognitive needs: No Hearing needs: No Vision needs: Yes Meds Allergies Allergy/AdvReac Type Severity Reaction Status Date / Time amoxicillin [AMOXICILLIN] Allergy Mild DIARRHEA Verified 11/06/21 10:12 Darvocet A500 Allergy Unknown upset Verified 11/06/21 10:12 stomach melatonin Allergy Unknown Nausea and Verified 11/06/21 10:12 Vomiting oxycodone [From PERCOCET] Allergy Unknown NAUSEA,VOMI Verified 11/06/21 10:12 TING Propoxyphene HCl Allergy Unknown upset Verified 11/06/21 10:12 stomach influenza virus vaccine, AdvReac Intermediate NAUSEA,DIAR Verified 11/06/21 10:12 specific WU [FLU VACCINE] Iodinated Contrast Media AdvReac Intermediate NAUSEA,DIZZINESS,CHEST Verified 11/06/21 10:12 [IV CONTRAST] PRESSURE lactose [LACTOSE] AdvReac Intermediate GI UPSET Verified 11/06/21 10:12 metronidazole [From FLAGYL] AdvReac Intermediate NAUSEA & Verified 11/06/21 10:12 VOMITING Sulfa (Sulfonamide AdvReac Intermediate EYE DROPS Verified 11/06/21 10:12 Antibiotics) (ONLY)-IRITIS Active Medications: Current Medications Pharmacy Consult (Consult Rx Perform Med Rec) 1 each MISCELLANE ONCE PRN PRN Reason: Consult order Home Medications Medication Instructions Recorded Confirmed Last Taken Type qoobnjisgm-[id number] 1 tab PO Q6H PRN Pain 12/25/20 11/14/21 Unknown History 50 mg-325 mg-40 mg tablet multivitamin (Daily Multi-Vitamin) 1 tab PO BEDTIME 12/25/20 11/14/21 09/09/21 History meclizine 25 mg tablet 25 mg PO TID PRN Dizziness 01/02/21 11/14/21 11/13/21 History fluticasone fur. 100 mcg-umeclid 1 inh inhalation BEDTIME 08/09/21 11/14/21 11/13/21 History 62.5 mcg-vilant 25 mcg inhalat.powder (Trelegy Ellipta) lisinopril 2.5 mg tablet 2.5 mg PO BEDTIME 08/09/21 11/14/21 11/13/21 History bupropion HCl 150 mg tablet,12 hr 150 mg PO BEDTIME 08/30/21 11/14/21 11/13/21 History sustained-release aspirin 81 mg chewable tablet 1 tab PO BEDTIME 09/11/21 11/14/21 11/13/21 Hist ory atorvastatin 80 mg tablet 80 mg PO BEDTIME 09/11/21 11/14/21 11/13/21 History cholecalciferol (vitamin D3) 25 25 mcg PO BEDTIME 09/11/21 11/14/21 Unknown History mcg (1,000 unit) tablet cyanocobalamin (vitamin B-12) 2 tab PO BEDTIME 09/11/21 11/14/21 09/09/21 History 1,000 mcg tablet lidocaine 5 % topical patch 1 patch topical DAILY PRN Pain 09/11/21 11/14/21 11/13/21 History nitroglycerin 0.4 mg sublingual 1 tab sublingual NEEDED angina 09/11/21 11/14/21 Unknown History tablet isosorbide mononitrate 30 mg 30 mg PO DAILY 09/25/21 11/14/21 11/13/21 History tablet,extended release 24 hr zolpidem 5 mg tablet 5 mg PO BEDTIME PRN Insomnia 11/06/21 11/14/21 11/13/21 History ascorbic acid (vitamin C) 500 mg 500 mg PO DAILY 11/14/21 11/14/21 Unknown H istory tablet gabapentin 100 mg capsule 200 mg PO BID 11/14/21 11/14/21 11/13/21 History nicotine 7 mg/24 hr daily 7 mg transdermal DAILY PRN 11/14/21 11/14/21 Unknown History transdermal patch Nicotine Cravings prednisone 10 mg tablet See Taper PO DAILY 11/14/21 11/14/21 11/13/21 History Physical Exam Vital Signs and Narrative: Vital Signs: Last Vital Signs Temp 97.8 F 11/14/21 08:11 Pulse 94 11/14/21 09:43 Resp 24 H 11/14/21 09:43 BP 137/60 11/14/21 09:43 Pulse Ox 97 11/14/21 09:43 O2 Del Method 11/14/21 09:43 O2 Flow Rate 2 11/14/21 09:43 BMI result Body Mass Index 30.8 Const: Other: Constitutional - Awake and Alert, mild tachpnea around 22 but able to hold a conversation without signifiant distress Eyes - PERRLA, EOMI Cardiovascular - S1S2, RRR, No edema, no JVD appreciated Respiratory - Poor air entry globally; no accessory muscle use Gastrointestinal - NT / ND; +BS; No rebound or guarding - No CVA tenderness Extremities - no calf tenderness bilaterally, no swelling Musculoskeletal - Normal inspection, normal ROM Skin - Warm/Dry Neurological - Alert & oriented x3, No focal deficit Psychological - Appropriate affect Results Labs CBC and Chem 7: 11/14/21 08:37 11/14/21 08:37 Labs: Laboratory Results - last 24 hr 11/14/21 11/14/21 11/14/21 08:36 08:37 08:37 MCV 83.4 MCH 25.2 L MCHC 30.3 L RDW 16.1 H Plt Count 279 MPV 10.9 Immature Gran % (Auto) 3.7 H Neut % (Auto) 56.0 Lymph % (Auto) 31.5 [place] % (Auto) 6.8 Eos % (Auto) 1.6 Baso % (Auto) 0.4 Lymph # (Auto) 4.7 [place] # (Auto) 1.0 Eos # (Auto) 0.2 Baso # (Auto) 0.1 Abs Immat Gran (auto) 0.54 H Absolute Neuts (auto) 8.3 Absolute Nucleated RBC 0.000 Nucleated RBC % (auto) 0.0 PT INR VBG pH VBG pCO2 VBG pO2 VBG HCO3 VBG O2 Saturation VBG Base Excess Anion Gap 14 Estim Creat Clear Calc 52.4 Estimated GFR > 60 Random Glucose 146 H Lactic Acid Calcium 9.2 Magnesium 1.9 Total Bilirubin 0.4 Direct Bilirubin 0.2 AST 23 D ALT 31 Alkaline Phosphatase 100 D Troponin I High Sens 22.8 H B-Natriuretic Peptide Total Protein 7.0 Albumin 3.9 Urine Color Urine Appearance Urine pH Ur Specific [place] Urine Protein Urine Glucose (UA) Urine Ketones Urine Blood Urine Nitrite Ur Leukocyte Esterase Urine RBC Urine WBC Ur Squamous Epith Cells Urine Bacteria COVID-19 ([facility]) COVID-19 Clin Com 11/14/21 11/14/21 11/14/21 08:37 08:37 08:38 MCV MCH MCHC RDW Plt Count MPV Immature Gran % (Auto) Neut % (Auto) Lymph % (Auto) [place] % (Auto) Eos % (Auto) Baso % (Auto) Lymph # (Auto) [place] # (Auto) Eos # (Auto) Baso # (Auto) Abs Immat Gran (auto) Absolute Neuts (auto) Absolute Nucleated RBC Nucleated RBC % (auto) PT 10.1 INR 0.9 VBG pH VBG pCO2 VBG pO2 VBG HCO3 VBG O2 Saturation VBG Base Excess Anion Gap Estim Creat Clear Calc Estimated GFR Random Glucose Lactic Acid 2.1 H* Calcium Magnesium Total Bilirubin Direct Bilirubin AST ALT Alkaline Phosphatase Troponin I High Sens B-Natriuretic Peptide 370 H Total Protein Albumin Urine Color Urine Appearance Urine pH Ur Specific [place] Urine Protein Urine Glucose (UA) Urine Ketones Urine Blood Urine Nitrite Ur Leukocyte Esterase Urine RBC Urine WBC Ur Squamous Epith Cells Urine Bacteria COVID-19 ([facility]) COVID-19 Clin Com 11/14/21 11/14/21 11/14/21 08:38 08:38 09:39 MCV MCH MCHC RDW Plt Count MPV Immature Gran % (Auto) Neut % (Auto) Lymph % (Auto) [place] % (Auto) Eos % (Auto) Baso % (Auto) Lymph # (Auto) [place] # (Auto) Eos # (Auto) Baso # (Auto) Abs Immat Gran (auto) Absolute Neuts (auto) Absolute Nucleated RBC Nucleated RBC % (auto) PT INR VBG pH 7.39 VBG pCO2 39 VBG pO2 177 VBG HCO3 24 VBG O2 Saturation 100.0 VBG Base Excess -0.3 Anion Gap Estim Creat Clear Calc Estimated GFR Random Glucose Lactic Acid Calcium Magnesium Total Bilirubin Direct Bilirubin AST ALT Alkaline Phosphatase Troponin I High Sens B-Natriuretic Peptide Total Protein Albumin Urine Color YELLOW Urine Appearance CLEAR Urine pH 6.0 Ur Specific [place] 1.025 Urine Protein 2+ H Urine Glucose (UA) NEG Urine Ketones NEG Urine Blood NEG Urine Nitrite NEG Ur Leukocyte Esterase 1+ H Urine RBC 0 Urine WBC 30-49 H Ur Squamous Epith Cells 1+ Urine Bacteria TRACE COVID-19 ([facility]ENN[facility]) Negative COVID-19 Clin Com See Note Imaging Radiologist's Impressions: Impressions Chest X-Ray 11/14/21 08:51 IMPRESSION: No acute intrathoracic disease. Assessment and Plan (1) Acute exacerbation of chronic obstructive pulmonary disease: Status: Acute Plan 71 yo F with a PMH of COPD who is an active smoker presenting to the ED with respiratory symptoms suggesting acute exacerbation of COPD. She has improved with EMS/ED treatments but still not improved enough for discharge home and hence will be admitted under observation. 1. Acute exacerbation of COPD was hypoxic when EMS arrived, but her oxygen saturation in now mid 90s on RA. Monitor O2 levels intermittently. IV solu-medrol + DuoNebs scheulded and PRN pt is advised tobacco cessation Patient's BNP is slightly elevated but patient does not have any clinical evidence to suggest CHF exacerbation 2. Lactic acidosis NOT due to severe sepsis. Possibly secondary to updrafts + metformin 3. DM on metformin at home, use sliding scale 4. CAD HS trop-I slightly elevated, will trend; EKG without significant change from prior; denies chest pain continue her baseline meds 5. Cervical spinal stenosis / cervicalgia on prednisone taper as outpatient, on hold while she gets solu-medrol Full Code DVT pptx, Leif Reports her son as health care proxy. Quality Stroke Does the patient have a stroke diagnosis?: No VTE Prior VTE?: No VTE Risk Level:: Medical - moderate - high VTE Device Contraindication: Treatment Not Indicated VTE Drug Contraindication: N/A - Med Ordered
[2021-11-14 10:40] LABS: Reflex Lactate? Lactic Acid Added
[2021-11-14] MEDS: Isosorbide Mononitrate 30 MG TAB.ER.24H PO (11:42)
[2021-11-14] MEDS: Ascorbic Acid 500 MG TABLET PO (11:42)
[2021-11-14] MEDS: methylPREDNISolone Sod Succ 40 MG/ML VIAL IVPUSH ×2 (11:42→19:58)
[2021-11-14] MEDS: Enoxaparin Sodium 40 MG/0.4 ML SYRINGE SUBCUT (11:42)
[2021-11-14] MEDS: 0.9 % Sodium Chloride 250 ML 500 ML IV (11:42)
[2021-11-14 11:48] LABS: ~Lactic Acid-LAB USE ONLY 3.7 mmol/L (0.5-2.0)
--- NOTE | 2021-11-14 11:55 | PC.NURSE ---
pt put back on oxygen at 2l via nasal caanual, pt reporting feeling sob and work of breathing slightly increased, sating at 97% on 2l
[2021-11-14 12:01] LABS: Troponin-I High Sensitivity 145.1 ng/L (<3.5-17.0)
[2021-11-14] MEDS: Aspirin 325 MG TABLET PO (12:29)
[2021-11-14] MEDS: Enoxaparin Sodium 30 MG/0.3 ML SYRINGE SUBCUT (12:29)
[2021-11-14 12:58] LABS: Glucose, Whole Blood 256 mg/dL (60-115)
--- NOTE | 2021-11-14 13:09 | P.CONCA_ITS ---
History of Present Illness History of Present Illness Date of Service: 11/14/21 Requesting physician: Chadd Maharaj Chief complaint: SHORTNESS OF BREATH, +troponin Narrative: 71-year-old female who has known history of coronary disease with previous LAD PCI, peripheral vascular disease and tobacco abuse and COPD sources presenting with shortness of breath ongoing for few days. She is not coughing any phlegm or has any fevers but was progressively short of breath. She has been diagnosed with COPD exacerbation. At the same time she had mildly elevated high sensitivity troponin levels. Her troponins were 22 and 145. She is denying any chest discomfort. She does not remember having any significant symptoms before she underwent LAD PCI. She said her stress testing and other workup was abnormal that led to LAD PCI. EKG reviewed showing sinus rhythm, right bundle-branch block, nonspecific T-wave changes. [facility] Past Medical History Medical History Anxiety CAD (coronary artery disease) Cervical stenosis of spine COPD (chronic obstructive pulmonary disease) Depression Diabetes Diabetic polyneuropathy associated with type 2 diabetes mellitus DM type 2 (diabetes mellitus, type 2) DM type 2 (diabetes mellitus, type 2) HTN (hypertension) Hyperlipidemia Left leg swelling Low vitamin D level Migraine headache Neck pain Nonalcoholic steatohepatitis (CHRISTINE) Pulmonary nodule Smoker Vertigo Vitamin B 12 deficiency Vitamin B12 deficiency Family History Family History Mother CVD (cardiovascular disease) CVA (cerebral vascular accident) Father CVD (cardiovascular disease) Surgical History Surgical History Fusion of spine of cervical region History of carpal tunnel release History of hysterectomy Social History Social History Household Members: Friend(s) 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 Housing: House Do you presently have visiting nurse or other home services: No Alcohol intake: never Patient Tobacco Use Status: Current everyday Tobacco user Tobacco use type: Cigarette Cigarettes Per Day: 4 Years Smoked: 62 Smoked in Last 30 Days: Yes e-Cigarette/Vaping Use: Never Used Use of substances other than those prescribed or required for medical reasons: No Advance Directives: Yes Advance Directives Information Provided: Yes Advance Directives on File: No Advance Directives Date on File: 11/05/20 service: No Current occupational status: retired Current occupation: Right Handed Cognitive needs: No Hearing needs: No Vision needs: Yes Meds Allergies Allergy/AdvReac Type Severity Reaction Status Date / Time amoxicillin [AMOXICILLIN] Allergy Mild DIARRHEA Verified 11/06/21 10:12 Darvocet A500 Allergy Unknown upset Verified 11/06/21 10:12 stomach melatonin Allergy Unknown Nausea and Verified 11/06/21 10:12 Vomiting oxycodone [From PERCOCET] Allergy Unknown NAUSEA,VOMI Verified 11/06/21 10:12 TING Propoxyphene HCl Allergy Unknown upset Verified 11/06/21 10:12 stomach influenza virus vaccine, AdvReac Intermediate NAUSEA,DIAR Verified 11/06/21 10:12 specific WU [FLU VACCINE] Iodinated Contrast Media AdvReac Intermediate NAUSEA,DIZZINESS,CHEST Verified 11/06/21 10:12 [IV CONTRAST] PRESSURE lactose [LACTOSE] AdvReac Intermediate GI UPSET Verified 11/06/21 10:12 metronidazole [From FLAGYL] AdvReac Intermediate NAUSEA & Verified 11/06/21 10:12 VOMITING Sulfa (Sulfonamide AdvReac Intermediate EYE DROPS Verified 11/06/21 10:12 Antibiotics) (ONLY)-IRITIS Active Medications: Current Medications Acetaminophen (Acetaminophen 325 Mg Tablet) 650 mg PO Q6H PRN PRN Reason: Pain, Mild (Pain Scale 1-3) Albuterol Sulfate (Albuterol Sulfate (0.083%) 2.5 Mg/3 Ml Vial.Neb) 2.5 mg INHALE Q3H PRN PRN Reason: Shortness of Breath Albuterol/Ipratropium (Albuterol/Iprat 2.5/0.5mg 3 Ml Ampul.Neb) 3 ml INHALE RQ4H WHILE AWAKE ALEXANDRE Ascorbic Acid (Ascorbic Acid 500 Mg Tablet) 500 mg PO DAILY ALEXANDRE Last Admin: 11/14/21 11:42 Dose: 500 mg Aspirin (Aspirin 81 Mg Tab.Chew) 81 mg PO BEDTIME ALEXANDRE Atorvastatin Calcium (Atorvastatin Calcium 80 Mg Tablet) 80 mg PO BEDTIME ALEXANDRE Cyanocobalamin (Cyanocobalamin (Vitamin B-12) 1,000 Mcg Tablet) 1,000 mcg PO BEDTIME ALEXANDRE Enoxaparin Sodium (Enoxaparin Sodium 80 Mg/0.8 Ml Syringe) 70 mg SUBCUT Q12H [facility] Gabapentin (Gabapentin 100 Mg Capsule) 200 mg PO BID [facility] Insulin Human Lispro (Insulin Lispro 100 Unit/Ml 3 Ml Vial) 0 unit SUBCUT QIDACHS [facility]; Protocol Isosorbide Mononitrate (Isosorbide Mononitrate 30 Mg Tab.Er.24h) 30 mg PO DAILY [facility]; Protocol Last Admin: 11/14/21 11:42 Dose: 30 mg Lisinopril (Lisinopril 2.5 Mg Tablet) 2.5 mg PO BEDTIME [facility]; Protocol Loratadine (Loratadine 10 Mg Tablet) 10 mg PO DAILY [facility] Meclizine HCl (Meclizine Hcl 25 Mg Tablet) 25 mg PO TID PRN PRN Reason: Dizziness Methylprednisolone Sodium Succinate (Methylprednisolone Sod Succ 40 Mg/Ml Vial) 40 mg IVPUSH Q8H [facility] Last Admin: 11/14/21 11:42 Dose: 40 mg Multivitamins/Vitamin C (Multivitamin Tablet) 1 tab PO BEDTIME [facility] Nicotine (Nicotine 7 Mg Patch.Td24) 7 mg TRANSDERMA DAILY PRN PRN Reason: Nicotine Cravings Nitroglycerin (Nitroglycerin 0.4 Mg Tab.Subl) 0.4 mg SUBLINGUAL Q5M PRN PRN Reason: CHEST PAIN Non-Formulary Medication (Bupropion Hcl) 150 mg PO BEDTIME [facility] Ondansetron HCl (Ondansetron Hcl 4 Mg/2 Ml Vial) 4 mg IVPUSH Q8H PRN PRN Reason: Nausea and Vomiting Pharmacy Consult (Consult Rx Perform Med Rec) 1 each MISCELLANE ONCE PRN PRN Reason: Consult order Topiramate (Topiramate 100 Mg Tablet) 100 mg PO BID [facility] Ursodiol (Ursodiol 300 Mg Capsule) 600 mg PO BID [facility] Vitamin D (Cholecalciferol (Vitamin D3) 25 Mcg Tablet) 25 mcg PO BEDTIME [facility] Zolpidem Tartrate (Zolpidem Tartrate 5 Mg Tablet) 5 mg PO BEDTIME PRN PRN Reason: Insomnia Home Medications Medication Instructions Recorded Confirmed Last Taken Type yrtaobztbv-kirqczaqdkljz-jhexitxg 1 tab PO Q6H PRN Pain 12/25/20 11/14/21 Unknown History 50 mg-325 mg-40 mg tablet multivitamin (Daily Multi-Vitamin) 1 tab PO BEDTIME 12/25/20 11/14/2122 History meclizine 25 mg tablet 25 mg PO TID PRN Dizziness 01/02/21 11/14/21 11/13/21 History fluticasone fur. 100 mcg-umeclid 1 inh inhalation BEDTIME 08/09/21 11/14/21 11/13/21 History 62.5 mcg-vilant 25 mcg inhalat.powder (Trelegy Ellipta) lisinopril 2.5 mg tablet 2.5 mg PO BEDTIME 08/09/21 11/14/21 11/13/21 History bupropion HCl 150 mg tablet,12 hr 150 mg PO BEDTIME 08/30/21 11/14/21 11/13/21 History sustained-release aspirin 81 mg chewable tablet 1 tab PO BEDTIME 09/11/21 11/14/21 11/13/21 History atorvastatin 80 mg tablet 80 mg PO BEDTIME 09/11/21 11/14/21 11/13/21 History cholecalciferol (vitamin D3) 25 25 mcg PO BEDTIME 09/11/21 11/14/21 Unknown His tory mcg (1,000 unit) tablet cyanocobalamin (vitamin B-12) 2 tab PO BEDTIME 09/11/21 11/14/21 09/09/21 History 1,000 mcg tablet lidocaine 5 % topical patch 1 patch topical DAILY PRN Pain 09/11/21 11/14/21 11/13/21 History nitroglycerin 0.4 mg sublingual 1 tab sublingual NEEDED angina 09/11/21 11/14/21 Unknown History tablet isosorbide mononitrate 30 mg 30 mg PO DAILY 09/25/21 11/14/21 11/13/21 History tablet,extended release 24 hr zolpidem 5 mg tablet 5 mg PO BEDTIME PRN Insomnia 11/06/21 11/14/21 11/13/21 History ascorbic acid (vitamin C) 500 mg 500 mg PO DAILY 11/14/21 11/14/21 Unknown History tablet gabapentin 100 mg capsule 200 mg PO BID 11/14/21 11/14/21 11/13/21 History nicotine 7 mg/24 hr daily 7 mg transdermal DAILY PRN 11/14/21 11/14/21 Unknown History transdermal patch Nicotine Cravings prednisone 10 mg tablet See Taper PO DAILY 11/14/21 11/14/2111/13/22 History Physical Exam Vital Signs: Vital Signs: Last Vital Signs Temp 97.8 F 11/14/21 08:11 Pulse 85 11/14/21 12:32 Resp 22 H 11/14/21 12:32 BP 122/62 11/14/21 12:32 Pulse Ox 97 11/14/21 12:32 O2 Del Method 11/14/21 12:32 O2 Flow Rate 2 11/14/21 12:32 BMI result Body Mass Index 30.8 GENERAL APPEARANCE: Short of breath. NECK: no carotid bruit, no jugular venous distention. SKIN: no suspicious lesions, warm and dry. HEART: no murmurs, regular rate and rhythm. LUNGS: Bilateral expiratory wheezes and rhonchi. ABDOMEN: soft, nontender. EXTREMITIES: no edema. PERIPHERAL PULSES: equal. NEUROLOGIC: No gross deficits, AAO X 3 Objective Labs and Meds Result diagrams: 11/14/21 08:37 11/14/21 08:37 Lab results: Laboratory Results - last 24 hr 11/14/21 11/14/21 11/14/21 08:36 08:37 08:37 WBC 14.8 H RBC 4.16 L Hgb 10.5 L Hct 34.7 L MCV 83.4 MCH 25.2 L MCHC 30.3 L RDW 16.1 H Plt Count 279 MPV 10.9 Immature Gran % (Auto) 3.7 H Neut % (Auto) 56.0 Lymph % (Auto) 31.5 [facility] % (Auto) 6.8 Eos % (Auto) 1.6 Baso % (Auto) 0.4 Lymph # (Auto) 4.7 [facility] # (Auto) 1.0 Eos # (Auto) 0.2 Baso # (Auto) 0.1 Abs Immat Gran (auto) 0.54 H Absolute Neuts (auto) 8.3 Absolute Nucleated RBC 0.000 Nucleated RBC % (auto) 0.0 PT INR VBG pH VBG pCO2 VBG pO2 VBG HCO3 VBG O2 Saturation VBG Base Excess Sodium 143 Potassium 4.1 Chloride 108 Carbon Dioxide 25 Anion Gap 14 BUN 21 H Creatinine 0.88 Estim Creat Clear Calc 52.4 Estimated GFR > 60 POC Glucose Random Glucose 146 H Lactic Acid Lactic Acid F/U @ 2Hr Calcium 9.2 Magnesium 1.9 Total Bilirubin 0.4 Direct Bilirubin 0.2 AST 23 D ALT 31 Alkaline Phosphatase 100 D Troponin I High Sens 22.8 H B-Natriuretic Peptide Total Protein 7.0 Albumin 3.9 Urine Color Urine Appearance Urine pH Ur Specific [place] Urine Protein Urine Glucose (UA) Urine Ketones Urine Blood Urine Nitrite Ur Leukocyte Esterase Urine RBC Urine WBC Ur Squamous Epith Cells Urine Bacteria COVID-19 (JENNIFER) COVID-19 Clin Com 11/14/21 11/14/21 11/14/21 08:37 08:37 08:38 WBC RBC Hgb Hct MCV MCH MCHC RDW Plt Count MPV Immature Gran % (Auto) Neut % (Auto) Lymph % (Auto) [facility] % (Auto) Eos % (Auto) Baso % (Auto) Lymph # (Auto) [facility] # (Auto) Eos # (Auto) Baso # (Auto) Abs Immat Gran (auto) Absolute Neuts (auto) Absolute Nucleated RBC Nucleated RBC % (auto) PT 10.1 INR 0.9 VBG pH VBG pCO2 VBG pO2 VBG HCO3 VBG O2 Saturation VBG Base Excess Sodium Potassium Chloride Carbon Dioxide Anion Gap BUN Creatinine Estim Creat Clear Calc Estimated GFR POC Glucose Random Glucose Lactic Acid 2.1 H* Lactic Acid F/U @ 2Hr Calcium Magnesium Total Bilirubin Direct Bilirubin AST ALT Alkaline Phosphatase Troponin I High Sens B-Natriuretic Peptide 370 H Total Protein Albumin Urine Color Urine Appearance Urine pH Ur Specific [place] Urine Protein Urine Glucose (UA) Urine Ketones Urine Blood Urine Nitrite Ur Leukocyte Esterase Urine RBC Urine WBC Ur Squamous Epith Cells Urine Bacteria COVID-19 (JENNIFER) COVID-19 Clin Com 11/14/21 11/14/21 11/14/21 08:38 08:38 09:39 WBC RBC Hgb Hct MCV MCH MCHC RDW Plt Count MPV Immature Gran % (Auto) Neut % (Auto) Lymph % (Auto) [facility] % (Auto) Eos % (Auto) Baso % (Auto) Lymph # (Auto) [facility] # (Auto) Eos # (Auto) Baso # (Auto) Abs Immat Gran (auto) Absolute Neuts (auto) Absolute Nucleated RBC Nucleated RBC % (auto) PT INR VBG pH 7.39 VBG pCO2 39 VBG pO2 177 VBG HCO3 24 VBG O2 Saturation 100.0 VBG Base Excess -0.3 Sodium Potassium Chloride Carbon Dioxide Anion Gap BUN Creatinine Estim Creat Clear Calc Estimated GFR POC Glucose Random Glucose Lactic Acid Lactic Acid F/U @ 2Hr Calcium Magnesium Total Bilirubin Direct Bilirubin AST ALT Alkaline Phosphatase Troponin I High Sens B-Natriuretic Peptide Total Protein Albumin Urine Color YELLOW Urine Appearance CLEAR Urine pH 6.0 Ur Specific [place] 1.025 Urine Protein 2+ H Urine Glucose (UA) NEG Urine Ketones NEG Urine Blood NEG Urine Nitrite NEG Ur Leukocyte Esterase 1+ H Urine RBC 0 Urine WBC 30-49 H Ur Squamous Epith Cells 1+ Urine Bacteria TRACE COVID-19 (JENNIFER) Negative COVID-19 Clin Com See Note 11/14/21 11/14/21 11/14/21 11:25 11:25 12:53 WBC RBC Hgb Hct MCV MCH MCHC RDW Plt Count MPV Immature Gran % (Auto) Neut % (Auto) Lymph % (Auto) [facility] % (Auto) Eos % (Auto) Baso % (Auto) Lymph # (Auto) [facility] # (Auto) Eos # (Auto) Baso # (Auto) Abs Immat Gran (auto) Absolute Neuts (auto) Absolute Nucleated RBC Nucleated RBC % (auto) PT INR VBG pH VBG pCO2 VBG pO2 VBG HCO3 VBG O2 Saturation VBG Base Excess Sodium Potassium Chloride Carbon Dioxide Anion Gap BUN Creatinine Estim Creat Clear Calc Estimated GFR POC Glucose 256 H Random Glucose Lactic Acid Lactic Acid F/U @ 2Hr 3.7 H* Calcium Magnesium Total Bilirubin Direct Bilirubin AST ALT Alkaline Phosphatase Troponin I High Sens 145.1 H* D B-Natriuretic Peptide Total Protein Albumin Urine Color Urine Appearance Urine pH Ur Specific [place] Urine Protein Urine Glucose (UA) Urine Ketones Urine Blood Urine Nitrite Ur Leukocyte Esterase Urine RBC Urine WBC Ur Squamous Epith Cells Urine Bacteria COVID-19 (JENNIFER) COVID-19 Clin Com Imaging Radiologist's impression: Impressions Chest X-Ray 11/14/21 08:51 IMPRESSION: No acute intrathoracic disease. Assessment and Plan (1) Acute exacerbation of chronic obstructive pulmonary disease: Status: Acute (2) Elevated troponin: Status: Acute Plan Pleasant 71-year-old female who has known history of COPD, coronary disease and peripheral vascular disease was presenting with shortness of breath. Clinically she is in COPD exacerbation with active wheezing and rhonchi. This is likely cause for her shortness of breath. Her troponins were 22 and 145. This is significant change in the troponin level but her presentation is mostly COPD exacerbation and this is likely a type 2 injury. No significant EKG changes present. She should be treated for her COPD. Would recommend checking 1 more set of troponin to see if it is flat or still rising. Not in heart failure. We will follow along with you. Thank you for allowing me to participate in the care of your patient. Please feel free to contact me if you have any questions. Procedures Date of Service Date of Service: 11/14/21
[2021-11-14] MEDS: Insulin Lispro 100 UNIT/ML 3 ML VIAL SUBCUT ×3 (13:13→21:23)
[2021-11-14 13:26] LABS: Reflex Lactate? 2 Y
[2021-11-14] MEDS: Albuterol/Iprat 2.5/0.5MG 3 ML AMPUL.NEB INHALE ×3 (13:55→20:06)
[2021-11-14 14:23] LABS: ~Lactic Acid-LAB USE ONLY 6.3 mmol/L (0.5-2.0)
[2021-11-14 15:45] LABS: Troponin-I High Sensitivity 308.7 ng/L (<3.5-17.0)
--- NOTE | 2021-11-14 17:00 | CA_ITS ---
Transthoracic Echocardiogram Patient (Last, First, Middle): Dai Chakraborty C Gender: Female Date of : 1950 Age: 71 Procedure Date: 11/14/2021 Procedure Type: Transthoracic Echocardiogram Location: ER Height: 154.94 cm Weight: 73.94 kg BSA: 1.73 m2 Heart Rate: bpm BP: 122 / 62 mmHg Pipe Insulator: EMELY Referring MD: Chadd Maharaj MD Symptoms: nstemi Study Quality: Adequate Conclusions: - Normal left ventricular size and systolic function. There is mildly increased left ventricular wall thickness. The visually estimated ejection fraction is between 60-65%. - E/E prime ratio is >15, consistent with elevated filling pressures. - Normal right ventricular cavity size and systolic function. - There is mild aortic valve stenosis. Findings Left Ventricle Normal left ventricular size and systolic function. There is mildly increased left ventricular wall thickness. The visually estimated ejection fraction is between 60-65%. There is no evidence of regional wall motion abnormalities. Abnormal diastolic function is noted. Spectral Doppler is indicative of an impaired relaxation filling pattern. E/E prime ratio is >15, consistent with elevated filling pressures. Right Ventricle Normal right ventricular cavity size and systolic function. Atria The left atrium is mildly dilated. The right atrium is normal in size. Aortic Valve The aortic valve structure and function is likely normal. There is mild aortic valve stenosis. The peak aortic velocity is 2.77 m/s. The mean gradient is 19 mmHg. There is no aortic valve regurgitation. Mitral Valve There is no mitral valve regurgitation. There is no mitral valve stenosis. Pulmonic Valve The pulmonic valve is likely normal. Tricuspid Valve Normal tricuspid valve structure and function. There is trace tricuspid valve regurgitation. Tricuspid regurgitation envelope is inadequate for calculation of right ventricular systolic pressure. Mildly elevated right atrial pressure. Great Vessels All visible segments of the aorta are normal in size. The visualized portions of the pulmonary artery and branches are normal. Venous The inferior vena cava is dilated and collapses greater than 50% with inspiration. Pericardium/Pleural There is no evidence of pericardial effusion. Measurements 2D Linear Measurements IVSd: 1.10 0.6-0.9/0.6-1.0 cm LVIDd: 5.01 3.9-5.3/4.2-5.9 cm LVIDd Index: 2.90 2.4-3.2/2.2-3.1 cm/m2 LVIDs: 3.28 2.0-3.6 cm LVPWd: 1.08 0.7-1.1 cm LA Diam: 3.80 2.7-3.8/3.0-4.0 cm LAIDs Index: 2.20 1.5-2.3 cm/m2 LV Mass: 255.78 67-162/88-224 g LV Mass Index: 147.85 43-95/49-115 g/m2 LVOT Diam: 2.00 3.0+(-)1.3 cm 2D Systolic Function EF 4C: 54.10 >55% EF 2C: 54.60 >55% EF BiP: 55.10 >55% Mitral Valve MV VTI: 0.44 MV Pk Melvin: 1.91 MV Mn Melvin: 1.23 MV Pk Grad: 15.00 MV Mn Grad: 7.00 MV Pk E: 1.17 MV PK A: 1.75 MV Decel Time: 226.00 E/A: 0.70 E'Lateral: 8.59 E'Medial: 5.00 E/E' Med: 23.40 E/E' Lat: 13.60 PHT: 66.00 MVA PHT: 3.33 MVA Continuity: 2.18 Decel [place]: 5.18 Aortic Valve AoV Pk Melvin: 2.77 AoV Mn Melvin: 2.07 AoV VTI: 0.66 AoV Pk Grad: 31.00 Aov Mn Grad: 19.00 LINNEA Cont.VTI: 1.45 LVOT LVOT Pk Melvin: 1.45 LVOT Mn Melvin: 0.99 LVOT VTI: 0.30 LVOT Pk Grad: 8.00 LVOT Mn Grad: 4.00 LVOT Diam: 2.00 LVOT Area: 3.14 Diastolic Function MV Pk E: 1.17 MV Pk A: 1.75 E/A: 0.70 E'Medial: 5.00 E/E' Med: 23.40 E' Laterial: 8.59 E/E' Lat: 13.60 Right Ventricle TAPSE (mm): 20.80 TVS' Melvin: 14.60 Tricuspid Valve RA Press: 15.00 Great Vessels Aorta Sinus of Valsalva: 3.15 2.0-3.[address] [place]: 2.42 1.7-3.4 cm Ao Asc: 2.80 2.1-3.4 cm Updated in Other Vendor System with Status of Final Julio Rockwell MD electronically signed on 11/15/2021 6:16:37 PM with status of Final
--- NOTE | 2021-11-14 17:09 | MHC.CM.PN ---
IMM 11/14. CM met with patient in regards to d/c planning. Pt with significant SOB and wheezes. States improved from arrival. Lives with housemate. Has DM testing supplies/ no services. Vax with Pfizer/boosted x1 09/01/20, 09/22/20 & 05/16/21. Requested to update HCP. HCP #1 Lizabeth Power (daughter in law) [phone] & Devonte Power (son) [phone]. Copies given. Uploaded into [facility] and [facility] expanse. Pt may need VNA at d/c. Pt requesting to re-evaluate d/c plans closer to D/C. Pt may need resp evaluation-not on home oxygen at this time. No referrals placed. Family to transport home. CM to follow for d/c needs.
[2021-11-14 18:19] LABS: Glucose, Whole Blood 277 mg/dL (60-115)
[2021-11-14] MEDS: Cholecalciferol (Vitamin D3) 25 MCG TABLET PO (20:57)
[2021-11-14] MEDS: lisinopriL 2.5 MG TABLET PO (20:58)
[2021-11-14] MEDS: Aspirin 81 MG TAB.CHEW PO (20:58)
[2021-11-14] MEDS: Topiramate 100 MG TABLET PO (20:58)
[2021-11-14] MEDS: Cyanocobalamin (Vitamin B-12) 1,000 MCG TABLET 1000 MCG PO (20:58)
[2021-11-14] MEDS: UrsodioL 300 MG CAPSULE 600 MG PO (20:58)
[2021-11-14] MEDS: Multivitamin TABLET 1 TAB PO (20:59)
[2021-11-14] MEDS: Atorvastatin Calcium 80 MG TABLET PO (20:59)
[2021-11-14] MEDS: Gabapentin 100 MG CAPSULE 200 MG PO (20:59)
[2021-11-14 21:24] LABS: Glucose, Whole Blood 271 mg/dL (60-115)
[2021-11-14] MEDS: Enoxaparin Sodium 80 MG/0.8 ML SYRINGE 70 MG SUBCUT (23:20)
[2021-11-14] MEDS: Zolpidem Tartrate 5 MG TABLET PO (23:20)
[2021-11-15] VITALS (10 sets, daily range): BP systolic 114–139; BP diastolic 50–84; PULSE 80–104; RESP 13–24; TEMP 36.3–36.7; O2SAT 92–100
[2021-11-15] MEDS: methylPREDNISolone Sod Succ 40 MG/ML VIAL IVPUSH ×3 (04:17→19:38)
[2021-11-15 06:35] LABS: Hematocrit 31.6 % (37.0-47.0); Hemoglobin 9.4 g/dl (12.0-16.0); Mean Corpuscular HGB Conc 29.7 g/dl (31.0-35.0); Mean Corpuscular Hemoglobin 24.9 pg (27.0-33.0); Mean Corpuscular Volume 83.8 fL (80.0-98.0); Mean Platelet Volume 11.6 fL (9.4-12.3); Platelet Count 230 X10*3/uL (160-400); Red Blood Count 3.77 X10*6/uL (4.20-5.50); Red Cell Distribution Width 16.3 % (11.0-16.0); White Blood Count 13.5 X10*3/uL (4.8-10.8)
[2021-11-15 06:49] LABS: Anion Gap 13 (12-20); Blood Urea Nitrogen 41 mg/dL (9-16); Calcium 9.1 mg/dL (8.4-10.2); Carbon Dioxide 25 mmol/L (22-29); Chloride 105 mmol/L (96-108); Creatinine Clr Calc Pharmacy 43.4; Estimated Glomerular Filt Rate 51; Glucose Random 223 mg/dL (60-115); Sodium 138 mmol/L (135-145)
[2021-11-15 06:51] LABS: Troponin-I High Sensitivity 394.9 ng/L (<3.5-17.0)
--- NOTE | 2021-11-15 06:51 | PC.NURSE ---
Critical Troponin called in from the Lab, 394.9, Dr Bell made aware.
[2021-11-15 07:35] LABS: Glucose, Whole Blood 224 mg/dL (60-115)
[2021-11-15] MEDS: Topiramate 100 MG TABLET PO ×2 (08:25→21:01)
[2021-11-15] MEDS: Ascorbic Acid 500 MG TABLET PO (08:25)
[2021-11-15] MEDS: Gabapentin 100 MG CAPSULE 200 MG PO ×2 (08:26→21:01)
[2021-11-15] MEDS: Loratadine 10 MG TABLET PO (08:26)
[2021-11-15] MEDS: UrsodioL 300 MG CAPSULE 600 MG PO ×2 (08:26→21:00)
[2021-11-15] MEDS: Insulin Lispro 100 UNIT/ML 3 ML VIAL SUBCUT ×4 (08:28→21:03)
[2021-11-15] MEDS: Albuterol/Iprat 2.5/0.5MG 3 ML AMPUL.NEB INHALE ×3 (08:33→19:21)
--- NOTE | 2021-11-15 09:50 | PC.NURSE ---
Isosorbide not loaded in overflow pyxis. This travel writer spoke with Sydnie in pharmacy. Meds will be brought to the unit. Will administer meds when received from pharmacy.
[2021-11-15] MEDS: Isosorbide Mononitrate 30 MG TAB.ER.24H PO (10:34)
--- NOTE | 2021-11-15 11:03 | PM.PNCARD ---
Subjective Subjective Date of Service: 11/15/21 Interval history: No chest pain. short of breath and wheezing. Troponin or trending upward and she has been on Lovenox. Physical Exam Vital Signs: Last Vital Signs Temp 98.0 F 11/15/21 01:32 Pulse 84 11/15/21 08:34 Resp 20 11/15/21 08:34 BP 136/68 11/15/21 07:30 Pulse Ox 95 11/15/21 07:30 O2 Del Method 11/15/21 07:30 O2 Flow Rate 2 11/15/21 01:32 BMI result Body Mass Index 30.8 GENERAL APPEARANCE: Short of breath. NECK: no carotid bruit, no jugular venous distention. SKIN: no suspicious lesions, warm and dry. HEART: no murmurs, regular rate and rhythm. LUNGS: Bilateral expiratory wheezes and rhonchi. ABDOMEN: soft, nontender. EXTREMITIES: no edema. PERIPHERAL PULSES: equal. NEUROLOGIC: No gross deficits, AAO X 3 Objective Labs and Meds Result diagrams: 11/15/21 05:47 11/15/21 05:47 Lab results: Laboratory Results - last 24 hr 11/14/21 11/14/21 11/14/21 11:25 11:25 12:53 WBC RBC Hgb Hct MCV MCH MCHC RDW Plt Count MPV Absolute Nucleated RBC Nucleated RBC % (auto) Sodium Potassium Chloride Carbon Dioxide Anion Gap BUN Creatinine Estim Creat Clear Calc Estimated GFR POC Glucose 256 H Random Glucose Lactic Acid F/U @ 2Hr 3.7 H* Lactic Acid F/U @ 4Hr Calcium Troponin I High Sens 145.1 H* D 11/14/21 11/14/21 11/14/21 14:04 15:14 18:12 WBC RBC Hgb Hct MCV MCH MCHC RDW Plt Count MPV Absolute Nucleated RBC Nucleated RBC % (auto) Sodium Potassium Chloride Carbon Dioxide Anion Gap BUN Creatinine Estim Creat Clear Calc Estimated GFR POC Glucose 277 H Random Glucose Lactic Acid F/U @ 2Hr Lactic Acid F/U @ 4Hr 6.3 H* Calcium Troponin I High Sens 308.7 H* D 11/14/21 11/15/21 11/15/21 21:19 05:47 05:47 WBC 13.5 H RBC 3.77 L Hgb 9.4 L Hct 31.6 L MCV 83.8 MCH 24.9 L MCHC 29.7 L RDW 16.3 H Plt Count 230 MPV 11.6 Absolute Nucleated RBC 0.000 Nucleated RBC % (auto) 0.0 Sodium 138 Potassium 5.0 D Chloride 105 Carbon Dioxide 25 Anion Gap 13 BUN 41 H D Creatinine 1.06 Estim Creat Clear Calc 43.4 Estimated GFR 51 POC Glucose 271 H Random Glucose 223 H Lactic Acid F/U @ 2Hr Lactic Acid F/U @ 4Hr Calcium 9.1 Troponin I High Sens 11/15/21 11/15/21 05:47 07:29 WBC RBC Hgb Hct MCV MCH MCHC RDW Plt Count MPV Absolute Nucleated RBC Nucleated RBC % (auto) Sodium Potassium Chloride Carbon Dioxide Anion Gap BUN Creatinine Estim Creat Clear Calc Estimated GFR POC Glucose 224 H Random Glucose Lactic Acid F/U @ 2Hr Lactic Acid F/U @ 4Hr Calcium Troponin I High Sens 394.9 H* Progress Note: A&P Assessment and plan (1) Elevated troponin: Status: Acute (2) Acute exacerbation of chronic obstructive pulmonary disease: Status: Acute Plan [age] year female with COPD exacerbation and shortness of breath. He has background of coronary disease with LAD PCI. High sensitivity troponins were elevated mildly and happen rising slowly. Overall clinical story is not consistent with acute coronary syndrome. I think this is a type 2 event. She was started on enoxaparin by the medicine team. We will do echocardiogram and if there is no significant wall motion abnormality I would favor stopping the enoxaparin. I would recommend not checking further troponins. Thank you for allowing me to participate in the care of your patient. Please feel free to contact me if you have any questions. Time Spent With Patient Time: Total time spent is greater than 50% in coordination of care (as documented) at patient's floor/unit and/or counseling patient: Progress Note: Quality Stroke Does the patient have a stroke diagnosis?: No Procedures Date of Service Date of Service: 11/15/21
--- NOTE | 2021-11-15 13:00 | PC.NURSE ---
INSULIN NOT LOADED IN OVERFLOW PYXIS. PHARMACY WILL BRING TO UNIT. WILL ADMINISTER WHEN RECEIVED.
[2021-11-15 13:09] LABS: Glucose, Whole Blood 195 mg/dL (60-115)
[2021-11-15] MEDS: Enoxaparin Sodium 80 MG/0.8 ML SYRINGE 70 MG SUBCUT (13:23)
--- NOTE | 2021-11-15 13:37 | HO.PM.IMPN ---
Subjective Subjective Date of Service: 11/15/21 Interval History: Seen and examined this morning Follow-up for COPD exacerbation, elevated cardiac enzymes Continues to feel short of breath, intermittent cough. No chest pain Review of Systems Review of Systems: Yes all other systems are reviewed and are negative Constitutional Constitutional: Denies chills and Denies fever(s) Cardiovascular Cardiovascular: Denies chest pain, Denies palpitations and Reports dyspnea Respiratory Respiratory: Reports cough and Reports dyspnea Gastrointestinal Gastrointestinal: Denies abdominal pain, Denies nausea and Denies vomiting Endocrine Endocrine: Denies palpitations Physical Exam Vital Signs: Vital Signs: Last Vital Signs Temp 98.0 F 11/15/21 01:32 Pulse 83 11/15/21 12:41 Resp 14 11/15/21 12:41 BP 114/84 11/15/21 11:31 Pulse Ox 92 11/15/21 11:31 O2 Del Method 11/15/21 11:31 O2 Flow Rate 2 11/15/21 11:31 BMI result Body Mass Index 30.8 Const: General: cooperative, alert and awake Nutritional Appearance: overweight Orientation/consciousness: patient oriented x3 Resp: Other: Inspiratory and expiratory wheezing Effort & Inspection: tachypneic Auscultation: wheezes Cardio: Rate: regular rate Heart sounds: S1 normal heart sound present and S2 normal heart sound present GI: Inspection: No distended Palpation (GI): Soft to palpation and nontender Neuro: General: patient oriented x3 Extrem: General: Yes no pedal edema Objective Data Active Medications Acetaminophen (Acetaminophen 325 Mg Tablet) 650 mg PO Q6H PRN PRN Reason: Pain, Mild (Pain Scale 1-3) Albuterol Sulfate (Albuterol Sulfate (0.083%) 2.5 Mg/3 Ml Vial.Neb) 2.5 mg INHALE Q3H PRN PRN Reason: Shortness of Breath Albuterol/Ipratropium (Albuterol/Iprat 2.5/0.5mg 3 Ml Ampul.Neb) 3 ml INHALE RQ4H WHILE AWAKE [facility] Last Admin: 11/15/21 12:40 Dose: 3 ml Documented By: ABIDA Ascorbic Acid (Ascorbic Acid 500 Mg Tablet) 500 mg PO DAILY [facility] Last Admin: 11/15/21 08:25 Dose: 500 mg Documented By: LOVE Aspirin (Aspirin 81 Mg Tab.Chew) 81 mg PO BEDTIME [facility] Last Admin: 11/14/21 20:58 Dose: 81 mg Documented By: KAREN Atorvastatin Calcium (Atorvastatin Calcium 80 Mg Tablet) 80 mg PO BEDTIME [facility] Last Admin: 11/14/21 20:59 Dose: 80 mg Documented By: KAREN Bupropion HCl (Bupropion Hcl 75 Mg Tablet) 75 mg PO BID [facility] Cyanocobalamin (Cyanocobalamin (Vitamin B-12) 1,000 Mcg Tablet) 1,000 mcg PO BEDTIME [facility] Last Admin: 11/14/21 20:58 Dose: 1,000 mcg Documented By: KAREN Enoxaparin Sodium (Enoxaparin Sodium 80 Mg/0.8 Ml Syringe) 70 mg SUBCUT Q12H [facility] Last Admin: 11/15/21 13:23 Dose: 70 mg Documented By: LOVE Gabapentin (Gabapentin 100 Mg Capsule) 200 mg PO BID [facility] Last Admin: 11/15/21 08:26 Dose: 200 mg Documented By: LOVE Insulin Human Lispro (Insulin Lispro 100 Unit/Ml 3 Ml Vial) 0 unit SUBCUT QIDACHS [facility]; Protocol Last Admin: 11/15/21 13:08 Dose: Not Given Documented By: LOVE Non-Admin Reason: See Note Isosorbide Mononitrate (Isosorbide Mononitrate 30 Mg Tab.Er.24h) 30 mg PO DAILY [facility]; Protocol Last Admin: 11/15/21 10:34 Dose: 30 mg Documented By: LOVE Lisinopril (Lisinopril 2.5 Mg Tablet) 2.5 mg PO BEDTIME [facility]; Protocol Last Admin: 11/14/21 20:58 Dose: 2.5 mg Documented By: KAREN Loratadine (Loratadine 10 Mg Tablet) 10 mg PO DAILY [facility] Last Admin: 11/15/21 08:26 Dose: 10 mg Documented By: LOVE Meclizine HCl (Meclizine Hcl 25 Mg Tablet) 25 mg PO TID PRN PRN Reason: Dizziness Methylprednisolone Sodium Succinate (Methylprednisolone Sod Succ 40 Mg/Ml Vial) 40 mg IVPUSH Q8H [facility] Last Admin: 11/15/21 13:24 Dose: 40 mg Documented By: LOVE Multivitamins/Vitamin C (Multivitamin Tablet) 1 tab PO BEDTIME [facility] Last Admin: 11/14/21 20:59 Dose: 1 tab Documented By: KAREN Nicotine (Nicotine 7 Mg Patch.Td24) 7 mg TRANSDERMA DAILY PRN PRN Reason: Nicotine Cravings Nitroglycerin (Nitroglycerin 0.4 Mg Tab.Subl) 0.4 mg SUBLINGUAL Q5M PRN PRN Reason: CHEST PAIN Ondansetron HCl (Ondansetron Hcl 4 Mg/2 Ml Vial) 4 mg IVPUSH Q8H PRN PRN Reason: Nausea and Vomiting Pharmacy Consult (Consult Rx Perform Med Rec) 1 each MISCELLANE ONCE PRN PRN Reason: Consult order Topiramate (Topiramate 100 Mg Tablet) 100 mg PO BID [facility] Last Admin: 11/15/21 08:25 Dose: 100 mg Documented By: LOVE Ursodiol (Ursodiol 300 Mg Capsule) 600 mg PO BID [facility] Last Admin: 11/15/21 08:26 Dose: 600 mg Documented By: LOVE Vitamin D (Cholecalciferol (Vitamin D3) 25 Mcg Tablet) 25 mcg PO BEDTIME [facility] Last Admin: 11/14/21 20:57 Dose: 25 mcg Documented By: KAREN Zolpidem Tartrate (Zolpidem Tartrate 5 Mg Tablet) 5 mg PO BEDTIME PRN PRN Reason: Insomnia Last Admin: 11/14/21 23:20 Dose: 5 mg Documented By: LATRICE Labs CBC & Chem 7: 11/15/21 05:47 11/15/21 05:47 Labs: Laboratory Results - last 24 hr 11/14/21 11/14/21 11/14/21 14:04 15:14 18:12 MCV MCH MCHC RDW Plt Count MPV Absolute Nucleated RBC Nucleated RBC % (auto) Anion Gap Estim Creat Clear Calc Estimated GFR POC Glucose 277 H Random Glucose Lactic Acid F/U @ 4Hr 6.3 H* Calcium Troponin I High Sens 308.7 H* D 11/14/21 11/15/21 11/15/21 21:19 05:47 05:47 MCV 83.8 MCH 24.9 L MCHC 29.7 L RDW 16.3 H Plt Count 230 MPV 11.6 Absolute Nucleated RBC 0.000 Nucleated RBC % (auto) 0.0 Anion Gap 13 Estim Creat Clear Calc 43.4 Estimated GFR 51 POC Glucose 271 H Random Glucose 223 H Lactic Acid F/U @ 4Hr Calcium 9.1 Troponin I High Sens 11/15/21 11/15/21 11/15/21 05:47 07:29 13:05 MCV MCH MCHC RDW Plt Count MPV Absolute Nucleated RBC Nucleated RBC % (auto) Anion Gap Estim Creat Clear Calc Estimated GFR POC Glucose 224 H 195 H Random Glucose Lactic Acid F/U @ 4Hr Calcium Troponin I High Sens 394.9 H* Microbiology Microbiology Results: Microbiology 11/14/21 08:38 Blood Culture - Preliminary Blood - Venous No growth after 24 hours. 11/14/21 08:38 Blood Culture - Preliminary Blood - Venous No growth after 24 hours. Assessment and Plan (1) Elevated troponin: Status: Acute (2) Acute exacerbation of chronic obstructive pulmonary disease: Status: Acute Plan 71 yo F with a PMH of COPD who is an active smoker presenting to the ED with respiratory symptoms suggesting acute exacerbation of COPD. She has improved with EMS/ED treatments but still not improved enough for discharge home and hence will be admitted under observation. Acute exacerbation of COPD still with significant wheezing, dyspnea was hypoxic when EMS arrived, but her oxygen saturation in now mid 90s on RA. Monitor O2 levels intermittently. Continue IV solu-medrol + DuoNebs scheulded and PRN Patient's BNP is slightly elevated but patient does not have any clinical evidence to suggest CHF exacerbation Lactic acidosis NOT due to severe sepsis. Possibly secondary to updrafts + metformin DM on metformin at home, use sliding scale CAD HS trop-I trending up to 394, started on Lovenox. likely type 2 event Echocardiogram pending, if no wall motion abnormality would DC Lovenox Cardiology following continue her baseline meds Cervical spinal stenosis / cervicalgia on prednisone taper as outpatient, on hold while she gets solu-medrol Tobacco dependence Smoking cessation advised Full Code DVT pptx, Anthonyx attending - Dr. Mahaarj Reports her son as health care proxy. Quality Stroke Does the patient have a stroke diagnosis?: No VTE Prior VTE?: No VTE Risk Level:: Medical - moderate - high VTE Device Contraindication: Treatment Not Indicated VTE Drug Contraindication: N/A - Med Ordered
[2021-11-15] MEDS: Acetaminophen 325 MG TABLET 650 MG PO ×2 (13:52→21:02)
[2021-11-15] MEDS: Albuterol Sulfate (0.083%) 2.5 MG/3 ML VIAL.NEB INHALE (14:12)
--- NOTE | 2021-11-15 15:20 | PC.NURSE ---
PT TITRATED OFF O2 BY RESPIRATORY THERAPIST. SATTING 90-92% R/A. PT REQUESTED TO BE PUT BACK ON O2 BECAUSE SHE FELT SOB. RESPIRATORY THERAPIST PLACED PT ON 1L N/C. NO SOB REPORTED. LS CRACKLES IN BASES. BREATHING TX GIVEN BY RESPIRATORY.
[2021-11-15 17:15] LABS: Glucose, Whole Blood 248 mg/dL (60-115)
--- NOTE | 2021-11-15 19:00 | PC.NURSE ---
PATIENT DOES ALL HER OWN CARE ,USE BEDSIDE COMMODE BY HERSELF ATE 100 % OF DINNER ,FRESH ICE GIVEN TO PATIENT .
[2021-11-15] MEDS: Fluticasone/Vilanterol 100/25 BLST.W.DEV 1 PUFF INHALE (19:58)
--- NOTE | 2021-11-15 20:55 | PC.NURSE ---
patient had large firm bowel movement .
[2021-11-15] MEDS: Multivitamin TABLET 1 TAB PO (21:01)
[2021-11-15] MEDS: Zolpidem Tartrate 5 MG TABLET PO (21:01)
[2021-11-15] MEDS: lisinopriL 2.5 MG TABLET PO (21:01)
[2021-11-15] MEDS: Cyanocobalamin (Vitamin B-12) 1,000 MCG TABLET 1000 MCG PO (21:01)
[2021-11-15] MEDS: Atorvastatin Calcium 80 MG TABLET PO (21:02)
[2021-11-15] MEDS: Aspirin 81 MG TAB.CHEW PO (21:02)
[2021-11-15] MEDS: Cholecalciferol (Vitamin D3) 25 MCG TABLET PO (21:02)
[2021-11-15] MEDS: buPROPion HCL 75 MG TABLET PO (21:03)
[2021-11-15 21:19] LABS: Glucose, Whole Blood 269 mg/dL (60-115)
[2021-11-16] VITALS (9 sets, daily range): BP systolic 108–146; BP diastolic 43–64; PULSE 73–98; RESP 17–23; TEMP 36.3–36.8; O2SAT 93–98
[2021-11-16] MEDS: Enoxaparin Sodium 80 MG/0.8 ML SYRINGE 70 MG SUBCUT (00:17)
--- NOTE | 2021-11-16 00:30 | PC.NURSE ---
RESTING COMF.DENIES PAIN.MONITOR SR,BBB,HR 60'S.LUNGS SL COARSE,DIM.O2 ON 2L.NO SOB.
[2021-11-16] MEDS: methylPREDNISolone Sod Succ 40 MG/ML VIAL IVPUSH ×3 (04:13→20:30)
[2021-11-16 07:29] LABS: Hematocrit 31.8 % (37.0-47.0); Hemoglobin 9.6 g/dl (12.0-16.0); Mean Corpuscular HGB Conc 30.2 g/dl (31.0-35.0); Mean Corpuscular Hemoglobin 25.2 pg (27.0-33.0); Mean Corpuscular Volume 83.5 fL (80.0-98.0); Mean Platelet Volume 12.5 fL (9.4-12.3); Platelet Count 250 X10*3/uL (160-400); Red Blood Count 3.81 X10*6/uL (4.20-5.50); Red Cell Distribution Width 16.5 % (11.0-16.0); White Blood Count 12.7 X10*3/uL (4.8-10.8)
[2021-11-16] MEDS: Albuterol/Iprat 2.5/0.5MG 3 ML AMPUL.NEB INHALE ×4 (07:48→19:25)
[2021-11-16 07:58] LABS: Glucose, Whole Blood 172 mg/dL (60-115)
[2021-11-16] MEDS: Fluticasone/Vilanterol 100/25 BLST.W.DEV 1 PUFF INHALE ×2 (08:02→08:03)
[2021-11-16] MEDS: buPROPion HCL 75 MG TABLET PO ×2 (10:03→20:31)
[2021-11-16] MEDS: Isosorbide Mononitrate 30 MG TAB.ER.24H PO (10:03)
[2021-11-16] MEDS: Acetaminophen 325 MG TABLET 650 MG PO ×2 (10:03→23:10)
[2021-11-16] MEDS: Topiramate 100 MG TABLET PO ×2 (10:04→23:09)
[2021-11-16] MEDS: Ascorbic Acid 500 MG TABLET PO (10:04)
[2021-11-16] MEDS: UrsodioL 300 MG CAPSULE 600 MG PO ×2 (10:04→20:31)
[2021-11-16] MEDS: Loratadine 10 MG TABLET PO (10:04)
[2021-11-16] MEDS: Gabapentin 100 MG CAPSULE 200 MG PO ×2 (10:04→20:31)
[2021-11-16] MEDS: Insulin Lispro 100 UNIT/ML 3 ML VIAL SUBCUT ×4 (10:04→20:30)
[2021-11-16 13:29] LABS: Glucose, Whole Blood 158 mg/dL (60-115)
--- NOTE | 2021-11-16 15:03 | P.PNIM_ITS ---
Subjective Subjective Date of Service: 11/16/21 Review of Systems Follow up COPD still sob but better sitting up in bed Physical Exam Vital Signs: Vital Signs: Last Vital Signs Temp 97.9 F 11/15/21 20:00 Pulse 79 11/16/21 13:38 Resp 19 11/16/21 13:38 BP 117/43 L 11/16/21 08:32 Pulse Ox 94 11/16/21 13:38 O2 Del Method 11/16/21 13:38 O2 Flow Rate 2 11/16/21 13:38 BMI result Body Mass Index 30.8 Appearing in no acute distress lung sounds exp wheezing heart regular rate rhythm, clear S1, S2 positive bowel sounds, abdomen is soft, nontender neuro patient is alert x3, no focal deficits Objective Data Active Medications Acetaminophen (Acetaminophen 325 Mg Tablet) 650 mg PO Q6H PRN PRN Reason: Pain, Mild (Pain Scale 1-3) Last Admin: 11/16/21 10:03 Dose: 650 mg Documented By: IZZY Albuterol Sulfate (Albuterol Sulfate (0.083%) 2.5 Mg/3 Ml Vial.Neb) 2.5 mg INHALE Q3H PRN PRN Reason: Shortness of Breath Last Admin: 11/15/21 14:12 Dose: 2.5 mg Documented By: ABIDA Albuterol/Ipratropium (Albuterol/Iprat 2.5/0.5mg 3 Ml Ampul.Neb) 3 ml INHALE RQ4H WHILE AWAKE [facility] Last Admin: 11/16/21 11:28 Dose: 3 ml Documented By: ABIDA Ascorbic Acid (Ascorbic Acid 500 Mg Tablet) 500 mg PO DAILY [facility] Last Admin: 11/16/21 10:04 Dose: 500 mg Documented By: IZZY Aspirin (Aspirin 81 Mg Tab.Chew) 81 mg PO BEDTIME [facility] Last Admin: 11/15/21 21:02 Dose: 81 mg Documented By: RADHA Atorvastatin Calcium (Atorvastatin Calcium 80 Mg Tablet) 80 mg PO BEDTIME [facility] Last Admin: 11/15/21 21:02 Dose: 80 mg Documented By: RADHA Bupropion HCl (Bupropion Hcl 75 Mg Tablet) 75 mg PO BID [facility] Last Admin: 11/16/21 10:03 Dose: 75 mg Documented By: IZZY Cyanocobalamin (Cyanocobalamin (Vitamin B-12) 1,000 Mcg Tablet) 1,000 mcg PO B EDTIME [facility] Last Admin: 11/15/21 21:01 Dose: 1,000 mcg Documented By: RADHA Enoxaparin Sodium (Enoxaparin Sodium 40 Mg/0.4 Ml Syringe) 40 mg SUBCUT DAILY [facility] Fluticasone/Vilanterol (Fluticasone/Vilanterol 100/25 Blst.W.Dev) 1 puff INHALE RDAILY [facility] Last Admin: 11/16/21 08:03 Dose: 1 puff Documented By: ABIDA Gabapentin (Gabapentin 100 Mg Capsule) 200 mg PO BID [facility] Last Admin: 11/16/21 10:04 Dose: 200 mg Documented By: IZZY Insulin Human Lispro (Insulin Lispro 100 Unit/Ml 3 Ml Vial) 0 unit SUBCUT QIDACHS [facility]; Protocol Last Admin: 11/16/21 13:23 Dose: 2 unit Documented By: IZZY Isosorbide Mononitrate (Isosorbide Mononitrate 30 Mg Tab.Er.24h) 30 mg PO DAILY [facility]; Protocol Last Admin: 11/16/21 10:03 Dose: 30 mg Documented By: IZZY Lisinopril (Lisinopril 2.5 Mg Tablet) 2.5 mg PO BEDTIME [facility]; Protocol Last Admin: 11/15/21 21:01 Dose: 2.5 mg Documented By: RADHA Loratadine (Loratadine 10 Mg Tablet) 10 mg PO DAILY [facility] Last Admin: 11/16/21 10:04 Dose: 10 mg Documented By: IZZY Meclizine HCl (Meclizine Hcl 25 Mg Tablet) 25 mg PO TID PRN PRN Reason: Dizziness Methylprednisolone Sodium Succinate (Methylprednisolone Sod Succ 40 Mg/Ml Vial) 40 mg IVPUSH Q8H [facility] Last Admin: 11/16/21 04:13 Dose: 40 mg Documented By: KIRTI Multivitamins/Vitamin C (Multivitamin Tablet) 1 tab PO BEDTIME [facility] Last Admin: 11/15/21 21:01 Dose: 1 tab Documented By: RADHA Nicotine (Nicotine 7 Mg Patch.Td24) 7 mg TRANSDERMA DAILY PRN PRN Reason: Nicotine Cravings Nitroglycerin (Nitroglycerin 0.4 Mg Tab.Subl) 0.4 mg SUBLINGUAL Q5M PRN PRN Reason: CHEST PAIN Ondansetron HCl (Ondansetron Hcl 4 Mg/2 Ml Vial) 4 mg IVPUSH Q8H PRN PRN Reason: Nausea and Vomiting Pharmacy Consult (Consult Rx Perform Med Rec) 1 each MISCELLANE ONCE PRN PRN Reason: Consult order Tiotropium Oriska (Tiotropium Oriska 18 Mcg Cap.W.Dev) 1 puff INHALE RDAILY [facility] Last Admin: 11/16/21 08:03 Dose: 1 puff Documented By: ABIDA Topiramate (Topiramate 100 Mg Tablet) 100 mg PO BID [facility] Last Admin: 11/16/21 10:04 Dose: 100 mg Documented By: IZZY Ursodiol (Ursodiol 300 Mg Capsule) 600 mg PO BID [facility] Last Admin: 11/16/21 10:04 Dose: 600 mg Documented By: IZZY Vitamin D (Cholecalciferol (Vitamin D3) 25 Mcg Tablet) 25 mcg PO BEDTIME [facility] Last Admin: 11/15/21 21:02 Dose: 25 mcg Documented By: RADHA Zolpidem Tartrate (Zolpidem Tartrate 5 Mg Tablet) 5 mg PO BEDTIME PRN PRN Reason: Insomnia Last Admin: 11/15/21 21:01 Dose: 5 mg Documented By: RADHA Labs CBC & Chem 7: 11/16/21 06:07 11/15/21 05:47 Labs: Laboratory Results - last 24 hr 11/15/21 11/15/21 11/16/21 16:57 20:51 06:07 MCV 83.5 MCH 25.2 L MCHC 30.2 L RDW 16.5 H Plt Count 250 MPV 12.5 H Absolute Nucleated RBC 0.000 Nucleated RBC % (auto) 0.0 POC Glucose 248 H 269 H 11/16/21 11/16/21 07:31 13:17 MCV MCH MCHC RDW Plt Count MPV Absolute Nucleated RBC Nucleated RBC % (auto) POC Glucose 172 H 158 H Microbiology Microbiology Results: Microbiology 11/14/21 08:38 Blood Culture - Preliminary Blood - Venous No growth after 48 hours. 11/14/21 08:38 Blood Culture - Preliminary Blood - Venous No growth after 48 hours. 11/14/21 09:59 Urine Culture - Final Urine clean catch - Urine quintanilla top Enterococcus faecalis Assessment and Plan (1) Elevated troponin: Status: Acute (2) Acute exacerbation of chronic obstructive pulmonary disease: Status: Acute Plan 71 yo F with a PMH of COPD who is an active smoker presenting to the ED with respiratory symptoms suggesting acute exacerbation of COPD. She has improved with EMS/ED treatments but still not improved enough for discharge home and hence will be admitted under observation. Acute exacerbation of COPD still with significant wheezing, dyspnea Continue IV solu-medrol + DuoNebs scheduled and PRN continue supp oxygen Lactic acidosis NOT due to severe sepsis. Possibly secondary to updrafts + metformin DM on metformin at home, use sliding scale CAD HS trop-I trending up to 394, started on Lovenox. likely type 2 event Echocardiogram with no wma, stop therapeutic lovenox Cardiology following continue her baseline meds Cervical spinal stenosis / cervicalgia on prednisone taper as outpatient, on hold while she gets solu-medrol Tobacco dependence Smoking cessation advised obese BMI 30.8 weight management Full Code DVT pptx, Lovenox attending - Dr. Mcclelland Reports her son as health care proxy. on OBS Quality Stroke Does the patient have a stroke diagnosis?: No VTE Prior VTE?: No VTE Risk Level:: Medical - moderate - high VTE Device Contraindication: Treatment Not Indicated VTE Drug Contraindication: N/A - Med Ordered
[2021-11-16 18:05] LABS: Glucose, Whole Blood 183 mg/dL (60-115)
--- NOTE | 2021-11-16 18:15 | PC.NURSE ---
New IV placed to pt's RUE. pt requiring 1L n/c d/t desatt'ing while asleep to 86%. pt able to ambulate with no assist, steady gait. POC maintained and insulin administered as ordered. MD informed of pt's diet order, diet changed to DM diet per pt reuqest and pt dx. call lee within reach, safety and fall precautions maintained. pt repositioning self.
--- NOTE | 2021-11-16 19:37 | PC.NURSE ---
Attempted to give report, nurse will call back when available.
[2021-11-16 20:24] LABS: Glucose, Whole Blood 245 mg/dL (60-115)
[2021-11-16] MEDS: Cholecalciferol (Vitamin D3) 25 MCG TABLET PO (20:31)
[2021-11-16] MEDS: lisinopriL 2.5 MG TABLET PO (20:31)
[2021-11-16] MEDS: Multivitamin TABLET 1 TAB PO (20:31)
[2021-11-16] MEDS: Cyanocobalamin (Vitamin B-12) 1,000 MCG TABLET 1000 MCG PO (20:31)
[2021-11-16] MEDS: Aspirin 81 MG TAB.CHEW PO (20:31)
[2021-11-16] MEDS: Atorvastatin Calcium 80 MG TABLET PO (20:33)
[2021-11-16] MEDS: Zolpidem Tartrate 5 MG TABLET PO (23:09)
[2021-11-17] MEDS: methylPREDNISolone Sod Succ 40 MG/ML VIAL IVPUSH (03:48)
[2021-11-17 03:57] VITALS: BP 138/64; PULSE 69; RESP 18; TEMP 36.4; O2SAT 96
[2021-11-17 07:10] VITALS: BP 168/74; PULSE 79; RESP 19; TEMP 36.5; O2SAT 94
[2021-11-17] MEDS: Albuterol/Iprat 2.5/0.5MG 3 ML AMPUL.NEB INHALE ×2 (07:46→11:25)
[2021-11-17] MEDS: Fluticasone/Vilanterol 100/25 BLST.W.DEV 1 PUFF INHALE ×2 (07:47→07:51)
[2021-11-17 07:49] LABS: Glucose, Whole Blood 170 mg/dL (60-115)
[2021-11-17 07:52] VITALS: PULSE 77; RESP 20; O2SAT 99
[2021-11-17] MEDS: Ascorbic Acid 500 MG TABLET PO (08:18)
[2021-11-17] MEDS: UrsodioL 300 MG CAPSULE 600 MG PO (08:19)
[2021-11-17] MEDS: Topiramate 100 MG TABLET PO (08:19)
[2021-11-17] MEDS: Isosorbide Mononitrate 30 MG TAB.ER.24H PO (08:19)
[2021-11-17] MEDS: Loratadine 10 MG TABLET PO (08:19)
[2021-11-17] MEDS: buPROPion HCL 75 MG TABLET PO (08:19)
[2021-11-17] MEDS: Gabapentin 100 MG CAPSULE 200 MG PO (08:19)
[2021-11-17] MEDS: Insulin Lispro 100 UNIT/ML 3 ML VIAL SUBCUT ×2 (08:20→13:01)
[2021-11-17 10:19] VITALS: PULSE 77; PULSE 97; O2SAT 93; O2SAT 96
[2021-11-17 10:57] VITALS: BP 120/58; PULSE 74; RESP 18; TEMP 36.7; O2SAT 97
--- NOTE | 2021-11-17 11:01 | PM.DS ---
DS: Providers Provider Date of Service: 11/17/21 Date of admission: 11/14/21 12:33 Primary care physician: Linda Matthews MD Consults: 11/14/21 12:05 Consult to Cardiology Routine Consulting Provider: Julio Rockwell Reason for consultation: NSTEMI [facility]ing clinician: Cammie Bejarano DS: Diagnosis Discharge Diagnosis (1) Elevated troponin: Status: Acute (2) Acute exacerbation of chronic obstructive pulmonary disease: Status: Acute DS: Summary Hospital Course Hospital Course: HP as per admitting provider This is a 71 yo F with a PMH of COPD, CAD, DM, HTN, Tobacco use, Cervical stenosis who presents to the ED with a 1 day history of shorntess of breath and intermittent non-productive cough. The patient, who reports she is an active smoker and has been recently smoking about 1/2 PPD due to increased personal stress, reports that she typically does feel more short of breath as the day progresses. On the evening prior to admission, she felt short of breath (even at rest) but thought she would get better by the morning. However, when she woek up, she felt even worse and could barely speak a few words without trouble breathing. She reports wheezing. She reports subjective fevers for the previous few days. She denies any anginal symptoms. She denies any orthopnea, LE edema or weight gain. She denies any known sick contacts.Per ED provider notes -- the patient's oxygen saturation was in the 80s when EMS arrived. They have nebs / IV solu-medrol en route to the ED. In the ED, she received an addtional round of nebulizer and empiric IV antibotics. She continued to be symptomatic and hence will be observed overnight . Acute exacerbation of COPD Wheezing improved Treated with IV Solu-Medrol, scheduled DuoNebs, supplemental oxygen Home O2 eval completed, not requiring home oxygen. With ambulation oxygen down to 93% Lactic acidosis NOT due to severe sepsis. Possibly secondary to updrafts? + metformin DM Continue home medications CAD HS trop-I trending up to 394, started on Lovenox. likely type 2 event Echocardiogram with no wma, stopped therapeutic lovenox Seen and evaluated by Cardiology continue her baseline meds Cervical spinal stenosis? / cervicalgia on prednisone taper as outpatient, on hold while she gets solu-medrol Tobacco dependence Smoking cessation advised obese BMI 30.8 weight management Time Spent with Patient Time attestation: Total time spent providing and/or coordinating discharge services: Discharge coordination time: Greater than 30 minutes Quality: Safe Use of Opioids Does Pt have an Active Cancer Diagnosis on the Problem List?: No Quality: Stroke Does the patient have a stroke diagnosis?: No Physical Exam Vital Signs: Vital Signs: Last Vital Signs Temp 98.0 F 11/17/21 10:57 Pulse 74 11/17/21 10:57 Resp 18 11/17/21 10:57 BP 120/58 L 11/17/21 10:57 Pulse Ox 97 11/17/21 10:57 O2 Del Method 11/17/21 10:57 O2 Flow Rate 2 11/17/21 07:10 BMI result Body Mass Index 30.8 Appearing in no acute distress head is normocephalic atraumatic eyes pupils are PERRLA sclera is anicteric mouth throat mucous membranes are intact and moist neck is supple no lymphadenopathy, no JVD noted lung sounds diminished heart regular rate rhythm, clear S1, S2 positive bowel sounds, abdomen is soft, nontender neuro patient is alert x3, no focal deficits DS: Data Data Completed and Pending Labs on day of discharge: Laboratory Results - last 24 hr 11/16/21 11/16/21 11/16/21 13:17 17:50 20:20 POC Glucose 158 H 183 H 245 H 11/17/21 07:14 POC Glucose 170 H Preliminary micro results at discharge 11/14/21 08:38 Blood Culture - Preliminary Blood - Venous No growth after 48 hours. 11/14/21 08:38 Blood Culture - Preliminary Blood - Venous No growth after 48 hours. Discharge Plan Discharge Anticipated Discharge Date/Time: 11/17/21 10:36 Patient Disposition: Home, Self-Care Discharge Diagnosis: Acute COPD exacerbation Lactic acidosis Referrals: Linda Matthews MD [Primary Care Provider] - 1 Week Discharge Medications: New prednisone 10 mg tablet 40 mg PO DAILY Qty: 16 0RF Continued topiramate 100 mg tablet 100 mg PO BID Qty: 180 3RF nystatin 100,000 unit/gram powder 1 appl topical TID Qty: 60 1RF acetaminophen [Tylenol] 325 mg tablet 325 mg PO Q6H PRN (Reason: pain) Qty: 90 3RF (DME) lancets [FreeStyle Lancets] 28 gauge misc See Rx Instructions .Route Qty: 100 3RF Rx Instructions: test blood sugar once a day ursodiol 500 mg tablet 500 mg PO BID Qty: 90 2RF (DME) FreeStyle Lite Strips Strip See Rx Instructions .Route Qty: 100 3RF Rx Instructions: test once a day nitroglycerin 0.4 mg tablet, sublingual 1 tab sublingual NEEDED atorvastatin 80 mg tablet 80 mg PO BEDTIME cyanocobalamin (vitamin B-12) 1,000 mcg tablet 2 tab PO BEDTIME lidocaine 5 % adhesive patch,medicated 1 patch topical DAILY PRN (Reason: Pain) Rx Instructions: leave on most painful area for up to 12 hrs aspirin 81 mg tablet,chewable 1 tab PO BEDTIME cholecalciferol (vitamin D3) 25 mcg (1,000 unit) tablet 25 mcg PO BEDTIME gabapentin 100 mg capsule 200 mg PO BID nicotine 7 mg/24 hr patch 24 hour 7 mg transdermal DAILY PRN (Reason: Nicotine Cravings) ascorbic acid (vitamin C) 500 mg Tablet 500 mg PO DAILY isosorbide mononitrate 30 mg tablet extended release 24 hr 30 mg PO DAILY metformin 750 mg tablet extended release 24 hr 750 mg PO DAILY Qty: 90 2RF zolpidem 5 mg tablet 5 mg PO BEDTIME PRN (Reason: Insomnia) albuterol sulfate 90 mcg/actuation HFA aerosol inhaler 2 puff inhalation Q4H PRN (Reason: shortness of breath or wheezing) Qty: 8.5 6RF cetirizine [Zyrtec] 10 mg tablet 10 mg PO DAILY Qty: 30 6RF meclizine 25 mg tablet 25 mg PO TID PRN (Reason: Dizziness) multivitamin [Daily Multi-Vitamin] Tablet 1 tab PO BEDTIME [id number]-nkoobaalvjmbz-nwsw 50-325-40 mg tablet 1 tab PO Q6H PRN (Reason: Pain) bupropion HCl 150 mg tablet sustained-release 12 hr 150 mg PO BEDTIME lisinopril 2.5 mg tablet 2.5 mg PO BEDTIME Trelegy Ellipta 100-62.5-25 mcg blister with device 1 inh inhalation BEDTIME Discontinued prednisone 10 mg tablet See Taper PO DAILY Taper: Prednisone 20 mg daily for 1 Day and 0 Hour 10 mg daily for 3 Days and 0 Hour Rx Instructions: 4 TABL x 3 days, then 3 tabl x3 days, then 2 tabl x 3days, then 1 tabl x 3days Discharge Orders: Discharge Order (Routine); Ordered 11/17/21 Ordered By: Cammie Bejarano Diet: Advance to usual diet Activity on Discharge: As tolerated Stand Alone Forms: Patient Portal Discharge page Care Plan Goals: Complete resolution of symptoms Health Concerns: Acute COPD exacerbation Lactic acidosis Plan of Treatment: Follow-up with her primary care provider as needed Take all medications as prescribed Assessment: See discharge summary
[2021-11-17 11:27] VITALS: PULSE 75; RESP 20; O2SAT 95
[2021-11-17 11:32] LABS: Glucose, Whole Blood 159 mg/dL (60-115)
--- NOTE | 2021-11-17 12:20 | MHC.CM.PN ---
pt dcd home no servcies ordered by
== END 2021-11-17 13:30 | disposition home or self-care (01) | DRG 191 ==
LOC: HO.ED 09:25 → HO.EDOVER 10:47 → HO.IMC 11-16 19:24
PROVIDERS: Physician Assistant Medical; Admitting Provider Family Medicine; Emergency Provider Emergency Medicine; PCP Internal Medicine; Visit Provider Nurse Practitioner Acute Care
DX: J44.1 Chronic obstructive pulmonary disease with (acute) exacerbation (principal); E87.2 Acidosis; I25.10 Atherosclerotic heart disease of native coronary artery without angina pectoris; M48.02 Spinal stenosis, cervical region; K75.81 Nonalcoholic steatohepatitis (NASH); F17.210 Nicotine dependence, cigarettes, uncomplicated; Z20.822 Contact with and (suspected) exposure to COVID-19; E66.9 Obesity, unspecified; Z68.30 Body mass index [BMI] 30.0-30.9, adult; Z71.6 Tobacco abuse counseling; Z88.0 Allergy status to penicillin; Z88.2 Allergy status to sulfonamides; Z88.7 Allergy status to serum and vaccine; Z88.8 Allergy status to other drugs, medicaments and biological substances; Z79.51 Long term (current) use of inhaled steroids; Z79.52 Long term (current) use of systemic steroids; Z79.82 Long term (current) use of aspirin; Z79.84 Long term (current) use of oral hypoglycemic drugs; Z79.899 Other long term (current) drug therapy
CPT/HCPCS: 36415; 71045; 80048; 80076; 81001; 82803; 82947; 83605; 83735; 83880; 84484; 85025; 85027; 85610; 87040; 87086; 87088; 87186; 87635; 93005; 93306; 94640; 94664; 96365; 99219; 99285; J0696; J1650; J2920; Q9957

== ENCOUNTER 2021-11-26 17:08 | Emergency (ER) | payer MEDICARE, OTHER, SELFPAY ==
--- NOTE | ~2021-11-26 | CT_ITS ---
EXAMINATION: CT ANGIOGRAM OF THE CHEST WITH AND WITHOUT CONTRAST (CT PULMONARY ANGIOGRAM FOR PE) CLINICAL INFORMATION: Reason for Exam acute sob ?pe COMPARISON: CT of chest 06/19/2021, 11/29/2019 TECHNIQUE: Prior to contrast administration, noncontrast localization images were obtained. Subsequently, multidetector volumetric imaging was performed from the thoracic inlet to below the diaphragms following the administration of 75 mL Omnipaque 350 intravenous contrast. No contrast reaction reported Sagittal, coronal, and MIP oblique sagittal reformatted images were obtained on the CT workstation, uploaded to PACS, and reviewed. This CT examination was performed using dose optimization techniques as appropriate, variously including the following: *Automated exposure control *Adjustment of mA and/or kV according to patient size (this includes techniques or standardized protocols for targeted exams where dose is matched to indication/reason for exam; i.e. extremities or head) *Use of iterative reconstruction technique Total exam dose-length product 279 mGy-cm FINDINGS: QUALITY OF STUDY/CONTRAST BOLUS: Suboptimal. PULMONARY ARTERIES: No pulmonary embolism. THORACIC AORTA: Ascending thoracic aorta is normal in caliber measuring 3.3 cm in span. Multivessel coronary artery calcification. LUNG: Moderate centrilobular and paraseptal emphysema. Multiple new tubular distal endobronchial filling defects for example in the right lower lobe, 7: 330 suggesting inspissated secretions. Stable 5 mm solid left lower lobe pulmonary nodule, unchanged from 2020 therefore likely benign. PLEURA: No pleural effusion or pneumothorax. MEDIASTINUM: Normal heart size. No pericardial effusion. No hilar or mediastinal lymphadenopathy. No evidence of septal bowing or right heart strain. CHEST WALL/AXILLA: No axillary or internal mammary lymphadenopathy. OSSEOUS STRUCTURES: Partially imaged cervical fusion hardware. UPPER ABDOMEN: Unremarkable. No reflux of contrast into the hepatic veins to suggest elevated right heart pressures. CT/CT angio chest PE protocol IMPRESSION: No pulmonary embolism. Moderate centrilobular and paraseptal emphysema. Multiple new tubular distal endobronchial filling defects suggesting inspissated secretions. VTE: negative
[2021-11-26 17:23] VITALS: BP 118/56; BP 185/80; PULSE 100; PULSE 85; RESP 16; TEMP 37.2; O2SAT 94; O2SAT 95; BMI 27.1
--- NOTE | 2021-11-26 17:41 | ED.SOB ---
HPI - SOB/Dyspnea General Chief Complaint: Dyspnea Stated Complaint: SOB Time Seen by Provider: 11/26/21 17:41 Source: patient Mode of arrival: EMS Limitations: no limitations History of Present Illness HPI Narrative: Patient is 71 years old with history of advanced COPD with longest standing history of smoking, CAD, diabetes, hypertension but just admitted and discharged on 11/17 for COPD flare-up comes back for increased shortness of breath since discharge patient is still taking tapering dose of prednisone using her inhalers history she smokes coughing mostly dry with occasional mucopurulent phlegm no fever no chills Related Data Home Medications Medication Instructions Recorded Confirmed vletiifksb-vcyatrtbrpvcm-mbnysqxm 1 tab PO Q6H PRN Pain 12/25/20 11/20/21 50 mg-325 mg-40 mg tablet multivitamin (Daily Multi-Vitamin 1 tab PO BEDTIME 12/25/20 11/20/21 tablet) meclizine 25 mg tablet 25 mg PO TID PRN Dizziness 01/02/21 11/20/21 fluticasone fur. 100 mcg-umeclid 1 inh inhalation BEDTIME 08/09/21 11/20/21 62.5 mcg-vilant 25 mcg inhalat.powder (Trelegy Ellipta) lisinopril 2.5 mg tablet 2.5 mg PO BEDTIME 08/09/21 11/20/21 bupropion HCl 150 mg tablet,12 hr 150 mg PO BEDTIME 08/30/21 11/20/21 sustained-release aspirin 81 mg chewable tablet 1 tab PO BEDTIME 09/11/21 11/20/21 atorvastatin 80 mg tablet 80 mg PO BEDTIME 09/11/21 11/20/21 cholecalciferol (vitamin D3) 25 25 mcg PO BEDTIME 09/11/21 11/20/21 mcg (1,000 unit) tablet cyanocobalamin (vitamin B-12) 2 tab PO BEDTIME 09/11/21 11/20/21 1,000 mcg tablet lidocaine 5 % topical patch 1 patch topical DAILY PRN Pain 09/11/21 11/20/21 nitroglycerin 0.4 mg sublingual 1 tab sublingual NEEDED angina 09/11/21 11/20/21 tablet isosorbide mononitrate 30 mg 30 mg PO DAILY 09/25/21 11/20/21 tablet,extended release 24 hr zolpidem 5 mg tablet 5 mg PO BEDTIME PRN Insomnia 11/06/21 11/20/21 ascorbic acid (vitamin C) 500 mg 500 mg PO DAILY 11/14/21 11/20/21 tablet gabapentin 100 mg capsule 200 mg PO BID 11/14/21 11/20/21 nicotine 7 mg/24 hr daily 7 mg transdermal DAILY PRN 11/14/21 11/20/21 transdermal patch Nicotine Cravings amlodipine 5 mg tablet 5 mg PO DAILY 11/20/21 11/20/21 lancets 33 gauge (TRUEplus Lancets) #100 ea 11/20/21 11/20/21 Previous Rx's Medication Instructions Recorded topiramate 100 mg tablet 100 mg PO BID #180 tabs 01/08/21 nystatin 100,000 unit/gram topical 1 appl topical TID #60 grams 04/30/21 powder acetaminophen 325 mg tablet 325 mg PO Q6H PRN pain #90 tabs 08/01/21 (Tylenol) lancets 28 gauge (FreeStyle #100 ea 08/07/21 Lancets) ursodiol 500 mg tablet 500 mg PO BID #90 tabs 08/21/21 blood sugar diagnostic (FreeStyle #100 ea 09/16/21 Lite Strips) metformin 750 mg tablet,extended 750 mg PO DAILY #90 tabs 09/25/21 release 24 hr albuterol sulfate 90 mcg/actuation 2 puff inhalation Q4H PRN 11/06/21 aerosol inhaler shortness of breath or wheezing #8.5 grams cetirizine 10 mg tablet (Zyrtec) 10 mg PO DAILY #30 tabs 11/06/21 prednisone 10 mg tablet 40 mg PO DAILY #16 tabs 11/17/21 prednisone 20 mg tablet 20 mg PO DAILY #24 tabs 11/20/21 doxycycline hyclate 100 mg tablet 100 mg PO BID #20 tabs 11/26/21 Allergies Allergy/AdvReac Type Severity Reaction Status Date / Time amoxicillin [AMOXICILLIN] Allergy Mild DIARRHEA Verified 11/20/21 11:59 Darvocet A500 Allergy Unknown upset Verified 11/20/21 11:59 stomach melatonin Allergy Unknown Nausea and Verified 11/20/21 11:59 Vomiting oxycodone [From PERCOCET] Allergy Unknown NAUSEA,VOMI Verified 11/20/21 11:59 TING Propoxyphene HCl Allergy Unknown upset Verified 11/20/21 11:59 stomach influenza virus vaccine, AdvReac Intermediate NAUSEA,DIAR Verified 11/20/21 11:59 specific WU [FLU VACCINE] lactose [LACTOSE] AdvReac Intermediate GI UPSET Verified 11/20/21 11:59 metronidazole [From FLAGYL] AdvReac Intermediate NAUSEA & Verified 11/20/21 11:59 VOMITING Sulfa (Sulfonamide AdvReac Intermediate EYE DROPS Verified 11/20/21 11:59 Antibiotics) (ONLY)-IRITIS Review of Systems Review of Systems: Yes all other systems are reviewed and are negative [facility] Past Medical History Medical History Anxiety CAD (coronary artery disease) Cervical stenosis of spine COPD (chronic obstructive pulmonary disease) Depression Diabetes Diabetic polyneuropathy associated with type 2 diabetes mellitus DM type 2 (diabetes mellitus, type 2) DM type 2 (diabetes mellitus, type 2) HTN (hypertension) Hyperlipidemia Left leg swelling Low vitamin D level Migraine headache Neck pain Nonalcoholic steatohepatitis (CHRISTINE) Pulmonary nodule Smoker Vertigo Vitamin B 12 deficiency Vitamin B12 deficiency Surgical History Fusion of spine of cervical region History of carpal tunnel release History of hysterectomy Family History Family History Mother CVD (cardiovascular disease) CVA (cerebral vascular accident) Father CVD (cardiovascular disease) Social History Social History Household Members: Other Household Members Other:: housemate Housing: House Do you presently have visiting nurse or other home services: No Alcohol intake: never Patient Tobacco Use Status: Current everyday Tobacco user Tobacco use type: Cigarette Cigarettes Per Day: 8 Years Smoked: 62 e-Cigarette/Vaping Use: Never Used Advance Directives: Yes Advance Directives on File: Yes Advance Directives Date on File: 11/05/20 service: No Current occupational status: retired Current occupation: Right Handed Cognitive needs: No Hearing needs: No Vision needs: Yes Physical Exam Vital Signs: Vital Signs: Last Vital Signs Temp 98.6 F 11/26/21 22:08 Pulse 88 11/26/21 22:08 Resp 20 11/26/21 22:08 BP 151/51 H 11/26/21 22:08 Pulse Ox 94 11/26/21 22:08 O2 Del Method 11/26/21 22:08 BMI result Body Mass Index 27.1 Appearance: Alert. Oriented X3. In mild distress Eyes: No pallor ENT: Pharynx normal. Oral Mucosa moist Neck: Normal inspection. Neck supple. CVS: Normal heart rate and rhythm. Pulses normal. Respiratory: No respiratory distress. Bilateral decreased air entry with prolonged expiration and wheezing no crackles Abdomen: Soft and nontender. Bowel sounds are present, no mass palpable, no CVA tenderness Skin: Skin warm and dry. Normal skin color. Normal skin turgor. Extremities: No lower extremity edema. No calf tenderness Neuro: Oriented X 3. MDM - SOB/Dyspnea MDM Narrative Medical decision making narrative: Patient with COPD still smoker in for increased shortness of breath on prednisone. CTA chest was done to rule out PE which was negative patient is saturating 95-96% during stay in the ER will discharge patient home advised to continue prednisone will give a short course of doxycycline for bronchitis Lab Data Attestation: I reviewed the patient's lab results. Result diagrams: 11/26/21 19:00 11/26/21 19:00 Labs: Lab Results 11/26/21 11/26/21 11/26/21 Range/Units 19:00 19:00 19:00 WBC 14.0 H (4.8-10.8) X10*3/uL RBC 4.39 (4.20-5.50) X10*6/uL Hgb 11.0 L (12.0-16.0) g/dl Hct 36.9 L (37.0-47.0) % MCV 84.1 (80.0-98.0) fL MCH 25.1 L (27.0-33.0) pg MCHC 29.8 L (31.0-35.0) g/dl RDW 16.8 H (11.0-16.0) % Plt Count 249 (160-400) X10*3/uL MPV 11.0 (9.4-12.3) fL Immature Gran % (Auto) 1.4 H (0.0-0.4) % Neut % (Auto) 86.1 H (45-73) % Lymph % (Auto) 10.5 L (20-40) % [place] % (Auto) 1.9 L (2-11) % Eos % (Auto) 0.0 (0-4) % Baso % (Auto) 0.1 (0-2) % Lymph # (Auto) 1.5 (1.2-4.9) X10*3/uL [place] # (Auto) 0.3 (0.1-1.2) X10*3/uL Eos # (Auto) 0.0 (0.0-0.4) X10*3/uL Baso # (Auto) 0.0 (0.0-0.2) X10*3/uL Abs Immat Gran (auto) 0.19 H (0.00-0.03) X10*3/uL Absolute Neuts (auto) 12.1 H (2.0-8.3) x10*3/uL Absolute Nucleated RBC 0.000 (0.0-0.012) X10*3/uL Nucleated RBC % (auto) 0.0 (0.0-0.2) /100WBC PT 10.6 (10.0-13.1) SEC INR 0.9 (0.9-1.1) Sodium 141 (135-145) mmol/L Potassium 4.4 (3.3-5.1) mmol/L Chloride 105 (96-108) mmol/L Carbon Dioxide 28 (22-29) mmol/L Anion Gap 12 (12-20) BUN 29 H (9-16) mg/dL Creatinine 1.08 (0.5-1.4) mg/dL Estim Creat Clear Calc 40.1 Estimated GFR 50 Random Glucose 278 H (60-115) mg/dL Calcium 9.3 (8.4-10.2) mg/dL Total Bilirubin 0.4 (0.0-1.0) mg/dL AST 21 (5-31) U/L ALT 36 H (0-31) U/L Alkaline Phosphatase 99 (39-117) U/L Troponin I High Sens (<3.5-17.0) ng/L B-Natriuretic Peptide (<100) pg/mL Total Protein 6.9 (6.5-8.0) g/dL Albumin 3.9 (3.5-5.0) g/dL 11/26/21 Range/Units 19:00 WBC (4.8-10.8) X10*3/uL RBC (4.20-5.50) X10*6/uL Hgb (12.0-16.0) g/dl Hct (37.0-47.0) % MCV (80.0-98.0) fL MCH (27.0-33.0) pg MCHC (31.0-35.0) g/dl RDW (11.0-16.0) % Plt Count (160-400) X10*3/uL MPV (9.4-12.3) fL Immature Gran % (Auto) (0.0-0.4) % Neut % (Auto) (45-73) % Lymph % (Auto) (20-40) % [place] % (Auto) (2-11) % Eos % (Auto) (0-4) % Baso % (Auto) (0-2) % Lymph # (Auto) (1.2-4.9) X10*3/uL [place] # (Auto) (0.1-1.2) X10*3/uL Eos # (Auto) (0.0-0.4) X10*3/uL Baso # (Auto) (0.0-0.2) X10*3/uL Abs Immat Gran (auto) (0.00-0.03) X10*3/uL Absolute Neuts (auto) (2.0-8.3) x10*3/uL Absolute Nucleated RBC (0.0-0.012) X10*3/uL Nucleated RBC % (auto) (0.0-0.2) /100WBC PT (10.0-13.1) SEC INR (0.9-1.1) Sodium (135-145) mmol/L Potassium (3.3-5.1) mmol/L Chloride (96-108) mmol/L Carbon Dioxide (22-29) mmol/L Anion Gap (12-20) BUN (9-16) mg/dL Creatinine (0.5-1.4) mg/dL Estim Creat Clear Calc Estimated GFR Random Glucose (60-115) mg/dL Calcium (8.4-10.2) mg/dL Total Bilirubin (0.0-1.0) mg/dL AST (5-31) U/L ALT (0-31) U/L Alkaline Phosphatase (39-117) U/L Troponin I High Sens 29.2 H D (<3.5-17.0) ng/L B-Natriuretic Peptide 242 H (<100) pg/mL Total Protein (6.5-8.0) g/dL Albumin (3.5-5.0) g/dL Discharge Plan Discharge Clinical Impression: COPD (chronic obstructive pulmonary disease), Chronic bronchitis Patient Disposition: Home, Self-Care Instructions: COPD (Chronic Obstructive Pulmonary Disease) (ED), Chronic Bronchitis (ED) Additional Instructions: Continue to use her inhaler and nebulizing treatment Continue prednisone Antibiotic as advised 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 Prescriptions: New doxycycline hyclate 100 mg tablet 100 mg PO BID Qty: 20 0RF No Action topiramate 100 mg tablet 100 mg PO BID Qty: 180 3RF nystatin 100,000 unit/gram powder 1 appl topical TID Qty: 60 1RF acetaminophen [Tylenol] 325 mg tablet 325 mg PO Q6H PRN (Reason: pain) Qty: 90 3RF (DME) lancets [FreeStyle Lancets] 28 gauge misc See Rx Instructions .Route Qty: 100 3RF Rx Instructions: test blood sugar once a day ursodiol 500 mg tablet 500 mg PO BID Qty: 90 2RF (DME) FreeStyle Lite Strips Strip See Rx Instructions .Route Qty: 100 3RF Rx Instructions: test once a day nitroglycerin 0.4 mg tablet, sublingual 1 tab sublingual NEEDED atorvastatin 80 mg tablet 80 mg PO BEDTIME cyanocobalamin (vitamin B-12) 1,000 mcg tablet 2 tab PO BEDTIME lidocaine 5 % adhesive patch,medicated 1 patch topical DAILY PRN (Reason: Pain) Rx Instructions: leave on most painful area for up to 12 hrs aspirin 81 mg tablet,chewable 1 tab PO BEDTIME cholecalciferol (vitamin D3) 25 mcg (1,000 unit) tablet 25 mcg PO BEDTIME gabapentin 100 mg capsule 200 mg PO BID nicotine 7 mg/24 hr patch 24 hour 7 mg transdermal DAILY PRN (Reason: Nicotine Cravings) ascorbic acid (vitamin C) 500 mg Tablet 500 mg PO DAILY prednisone 10 mg tablet 40 mg PO DAILY Qty: 16 0RF isosorbide mononitrate 30 mg tablet extended release 24 hr 30 mg PO DAILY metformin 750 mg tablet extended release 24 hr 750 mg PO DAILY Qty: 90 2RF amlodipine 5 mg tablet 5 mg PO DAILY (DME) lancets [TRUEplus Lancets] 33 gauge misc See Rx Instructions .ROUTE DAILY Qty: 100 Rx Instructions: As directed prednisone 20 mg tablet 20 mg PO DAILY Qty: 24 0RF Rx Instructions: 3 TABL X 4 DAYS, then 2 tabl x 4 days, then 1 tabl x 4 days zolpidem 5 mg tablet 5 mg PO BEDTIME PRN (Reason: Insomnia) albuterol sulfate 90 mcg/actuation HFA aerosol inhaler 2 puff inhalation Q4H PRN (Reason: shortness of breath or wheezing) Qty: 8.5 6RF cetirizine [Zyrtec] 10 mg tablet 10 mg PO DAILY Qty: 30 6RF meclizine 25 mg tablet 25 mg PO TID PRN (Reason: Dizziness) multivitamin [Daily Multi-Vitamin] Tablet 1 tab PO BEDTIME dymwjuogdy-worltvttuwpyk-wbtb 50-325-40 mg tablet 1 tab PO Q6H PRN (Reason: Pain) bupropion HCl 150 mg tablet sustained-release 12 hr 150 mg PO BEDTIME lisinopril 2.5 mg tablet 2.5 mg PO BEDTIME Trelegy Ellipta 100-62.5-25 mcg blister with device 1 inh inhalation BEDTIME Interventions: ED Discharge Assessment Last Done: 11/26/21 22:51 Discharge Date/Time: 11/26/21 22:51
--- NOTE | 2021-11-26 17:44 | ECG_ITS ---
Test Reason : SOB Blood Pressure : / mmHG Vent. Rate : 075 BPM Atrial Rate : 075 BPM P-R Int : 130 ms QRS Dur : 124 ms QT Int : 410 ms P-R-T Axes : 058 081 051 degrees QTc Int : 457 ms Normal sinus rhythm with sinus arrhythmia Right bundle branch block Abnormal ECG When compared with ECG of 14-NOV-2021 12:13, Right bundle branch block has replaced Non-specific intra-ventricular conduction block Referred By: Xu Pringle Electronically Signed By:Julio Rockwell
[2021-11-26] MEDS: Albuterol/Iprat 2.5/0.5MG 3 ML AMPUL.NEB INHALE (18:08)
[2021-11-26] MEDS: Albuterol Sulfate (0.083%) 2.5 MG/3 ML VIAL.NEB 5 MG INHALE (18:09)
[2021-11-26 18:10] VITALS: PULSE 88; RESP 18; O2SAT 96
--- NOTE | 2021-11-26 18:41 | PC.NURSE ---
PT WAS SEEN BY DR SANDERS, RESP WAS AT THE BEDSIDE FOR TREATMENT , SHE IS HAVING LABS DRAWN. NO ACUTE RESP DISTRESS, COPD EXACERBATION
[2021-11-26 18:51] VITALS: BP 141/63; PULSE 92; RESP 24; TEMP 36.8; O2SAT 94
[2021-11-26 19:10] LABS: MANUAL DIFF FLAG NO
[2021-11-26 19:12] LABS: Basophils Percent Auto 0.1 % (0-2); Hematocrit 36.9 % (37.0-47.0); Imm Gran Abs Auto 0.19 X10*3/uL (0.00-0.03); Imm Gran Pct Auto 1.4 % (0.0-0.4); Lymphocytes Absolute Auto 1.5 X10*3/uL (1.2-4.9); Lymphocytes Percent Auto 10.5 % (20-40); Mean Corpuscular HGB Conc 29.8 g/dl (31.0-35.0); Mean Corpuscular Hemoglobin 25.1 pg (27.0-33.0); Mean Corpuscular Volume 84.1 fL (80.0-98.0); Monocytes Absolute Auto 0.3 X10*3/uL (0.1-1.2); Monocytes Percent Auto 1.9 % (2-11); Neutrophils Absolute Auto 12.1 x10*3/uL (2.0-8.3); Neutrophils Percent Auto 86.1 % (45-73); Platelet Count 249 X10*3/uL (160-400); Red Blood Count 4.39 X10*6/uL (4.20-5.50); Red Cell Distribution Width 16.8 % (11.0-16.0)
[2021-11-26 19:17] LABS: INTERNATIONAL NORM RATIO 0.9 (0.9-1.1); Prothrombin Time 10.6 SEC (10.0-13.1)
[2021-11-26 19:28] LABS: Alanine Aminotransferase 36 U/L (0-31); Albumin Level 3.9 g/dL (3.5-5.0); Alkaline Phosphatase 99 U/L (39-117); Anion Gap 12 (12-20); Aspartate Amino Transferase 21 U/L (5-31); Bilirubin Total 0.4 mg/dL (0.0-1.0); Blood Urea Nitrogen 29 mg/dL (9-16); Calcium 9.3 mg/dL (8.4-10.2); Carbon Dioxide 28 mmol/L (22-29); Chloride 105 mmol/L (96-108); Creatinine Clr Calc Pharmacy 40.1; Estimated Glomerular Filt Rate 50; Glucose Random 278 mg/dL (60-115); Potassium 4.4 mmol/L (3.3-5.1); Sodium 141 mmol/L (135-145); Total Protein 6.9 g/dL (6.5-8.0)
[2021-11-26 19:31] LABS: B Type Natriuretic Peptide 242 pg/mL (<100); Troponin-I High Sensitivity 29.2 ng/L (<3.5-17.0)
--- NOTE | 2021-11-26 20:09 | PC.NURSE ---
no assessment charted by previous RN
[2021-11-26] MEDS: iohexoL 350 MG/ML 100 ML INFUS..BTL IV (20:41)
[2021-11-26 22:08] VITALS: BP 151/51; PULSE 88; RESP 20; TEMP 37; O2SAT 94
== END 2021-11-26 22:51 | disposition home or self-care (01) ==
PROVIDERS: Emergency Provider Internal Medicine
DX: J44.9 Chronic obstructive pulmonary disease, unspecified (principal); R06.02 Shortness of breath; I10 Essential (primary) hypertension; E78.5 Hyperlipidemia, unspecified; E11.9 Type 2 diabetes mellitus without complications; F17.210 Nicotine dependence, cigarettes, uncomplicated; Z79.82 Long term (current) use of aspirin; Z79.02 Long term (current) use of antithrombotics/antiplatelets; Z79.899 Other long term (current) drug therapy; Z79.84 Long term (current) use of oral hypoglycemic drugs
CPT/HCPCS: 36415; 71275; 80053; 83880; 84484; 85025; 85610; 93005; 94640; 94644; 99285; Q9967

== ENCOUNTER 2021-11-30 11:26 | Inpatient (IN) | payer MEDICARE, OTHER, MEDICAID, SELFPAY ==
--- NOTE | ~2021-11-30 | XR_ITS ---
EXAMINATION: XR CHEST CLINICAL INFORMATION: Shortness of breath COMPARISON: 11/09/2021 TECHNIQUE: Frontal view of the chest was obtained. FINDINGS: Cervical fusion plate again noted. Emphysema again noted. No significant abnormality is noted involving the heart, lungs, mediastinum, bony thorax or soft tissues. XR/XR chest 1V IMPRESSION: No active chest disease.
[2021-11-30 12:06] VITALS: BP 124/47; BP 149/98; PULSE 81; RESP 16; TEMP 35.9; O2SAT 95; O2SAT 98; BMI 27.1
[2021-11-30 14:09] LABS: Basophils Percent Auto 0.2 % (0-2); Eosinophils Absolute Auto 0.1 X10*3/uL (0.0-0.4); Eosinophils Percent Auto 0.8 % (0-4); Hematocrit 40.3 % (37.0-47.0); Imm Gran Abs Auto 0.19 X10*3/uL (0.00-0.03); Imm Gran Pct Auto 1.4 % (0.0-0.4); Lymphocytes Absolute Auto 1.1 X10*3/uL (1.2-4.9); Lymphocytes Percent Auto 7.9 % (20-40); MANUAL DIFF FLAG NO; Mean Corpuscular HGB Conc 29.8 g/dl (31.0-35.0); Mean Corpuscular Hemoglobin 24.8 pg (27.0-33.0); Mean Corpuscular Volume 83.4 fL (80.0-98.0); Mean Platelet Volume 10.6 fL (9.4-12.3); Monocytes Absolute Auto 0.3 X10*3/uL (0.1-1.2); Monocytes Percent Auto 2.1 % (2-11); Neutrophils Absolute Auto 11.6 x10*3/uL (2.0-8.3); Neutrophils Percent Auto 87.6 % (45-73); Platelet Count 243 X10*3/uL (160-400); Red Blood Count 4.83 X10*6/uL (4.20-5.50); Red Cell Distribution Width 16.6 % (11.0-16.0); White Blood Count 13.3 X10*3/uL (4.8-10.8)
[2021-11-30 14:25] LABS: COVID-19 Test Negative (Negative)
[2021-11-30 14:28] LABS: Alanine Aminotransferase 36 U/L (0-31); Albumin Level 4.1 g/dL (3.5-5.0); Alkaline Phosphatase 109 U/L (39-117); Anion Gap 14 (12-20); Aspartate Amino Transferase 30 U/L (5-31); Bilirubin Total 0.2 mg/dL (0.0-1.0); Blood Urea Nitrogen 19 mg/dL (9-16); Calcium 9.1 mg/dL (8.4-10.2); Carbon Dioxide 28 mmol/L (22-29); Chloride 104 mmol/L (96-108); Creatinine Clr Calc Pharmacy 45.1; Estimated Glomerular Filt Rate 57; Glucose Random 225 mg/dL (60-115); Sodium 142 mmol/L (135-145); Total Protein 7.1 g/dL (6.5-8.0)
[2021-11-30 14:31] LABS: B Type Natriuretic Peptide 99 pg/mL (<100); Troponin-I High Sensitivity 14.5 ng/L (<3.5-17.0)
[2021-11-30 18:49] VITALS: BP 169/47; PULSE 92; TEMP 36.9; O2SAT 96
[2021-12-01] VITALS (9 sets, daily range): BP systolic 101–148; BP diastolic 51–67; PULSE 69–96; RESP 16–25; TEMP 36.4–36.9; O2SAT 94–98
--- NOTE | 2021-12-01 00:23 | ED_ITS ---
HPI - SOB/Dyspnea General Chief Complaint: Dyspnea Stated Complaint: SOB Time Seen by Provider: 12/01/21 00:19 Source: patient Mode of arrival: ambulatory Limitations: no limitations History of Present Illness HPI Narrative: 71-year-old female with history of COPD not using supplemental oxygen at home, CAD, DM, HTN, longstanding cigarette smoking history, patient presented with shortness of breath for 1 day. Patient's symptoms is worsening with exertion, no lower extremity swelling or tenderness, no fever, no chills. Patient was hospitalized last week for COPD exacerbation had CTA of the chest which was unremarkable for PE patient felt better after was given bronchodilator/Solu-Medrol/magnesium. Patient was discharged on prednisone. Related Data Home Medications Medication Instructions Recorded Confirmed pfscjcbvcy-sfwjnyjcauvww-[id number] 1 tab PO Q6H PRN Pain 12/25/20 11/20/21 50 mg-325 mg-40 mg tablet multivitamin (Daily Multi-Vitamin 1 tab PO BEDTIME 12/25/20 11/20/21 tablet) meclizine 25 mg tablet 25 mg PO TID PRN Dizziness 01/02/21 11/20/21 fluticasone fur. 100 mcg-umeclid 1 inh inhalation BEDTIME 08/09/21 11/20/21 62.5 mcg-vilant 25 mcg inhalat.powder (Trelegy Ellipta) lisinopril 2.5 mg tablet 2.5 mg PO BEDTIME 08/09/21 11/20/21 bupropion HCl 150 mg tablet,12 hr 150 mg PO BEDTIME 08/30/21 11/20/21 sustained-release aspirin 81 mg chewable tablet 1 tab PO BEDTIME 09/11/21 11/20/21 atorvastatin 80 mg tablet 80 mg PO BEDTIME 09/11/21 11/20/21 cholecalciferol (vitamin D3) 25 25 mcg PO BEDTIME 09/11/21 11/20/21 mcg (1,000 unit) tablet cyanocobalamin (vitamin B-12) 2 tab PO BEDTIME 09/11/21 11/20/21 1,000 mcg tablet lidocaine 5 % topical patch 1 patch topical DAILY PRN Pain 09/11/21 11/20/21 nitroglycerin 0.4 mg sublingual 1 tab sublingual NEEDED angina 09/11/21 11/20/21 tablet isosorbide mononitrate 30 mg 30 mg PO DAILY 09/25/21 11/20/21 tablet,extended release 24 hr zolpidem 5 mg tablet 5 mg PO BEDTIME PRN Insomnia 11/06/21 11/20/21 ascorbic acid (vitamin C) 500 mg 500 mg PO DAILY 11/14/21 11/20/21 tablet gabapentin 100 mg capsule 200 mg PO BID 11/14/21 11/20/21 nicotine 7 mg/24 hr daily 7 mg transdermal DAILY PRN 11/14/21 11/20/21 transdermal patch Nicotine Cravings amlodipine 5 mg tablet 5 mg PO DAILY 11/20/21 11/20/21 lancets 33 gauge (TRUEplus Lancets) #100 ea 11/20/21 11/20/21 Previous Rx's Medication Instructions Recorded topiramate 100 mg tablet 100 mg PO BID #180 tabs 01/08/21 nystatin 100,000 unit/gram topical 1 appl topical TID #60 grams 04/30/21 powder acetaminophen 325 mg tablet 325 mg PO Q6H PRN pain #90 tabs 08/01/21 (Tylenol) lancets 28 gauge (FreeStyle #100 ea 08/07/21 Lancets) ursodiol 500 mg tablet 500 mg PO BID #90 tabs 08/21/21 blood sugar diagnostic (FreeStyle #100 ea 09/16/21 Lite Strips) metformin 750 mg tablet,extended 750 mg PO DAILY #90 tabs 09/25/21 release 24 hr albuterol sulfate 90 mcg/actuation 2 puff inhalation Q4H PRN 11/06/21 aerosol inhaler shortness of breath or wheezing #8.5 grams cetirizine 10 mg tablet (Zyrtec) 10 mg PO DAILY #30 tabs 11/06/21 prednisone 10 mg tablet 40 mg PO DAILY #16 tabs 11/17/21 prednisone 20 mg tablet 20 mg PO DAILY #24 tabs 11/20/21 doxycycline hyclate 100 mg tablet 100 mg PO BID #20 tabs 11/26/21 Allergies Allergy/AdvReac Type Severity Reaction Status Date / Time amoxicillin [AMOXICILLIN] Allergy Mild DIARRHEA Verified 11/30/21 12:10 Darvocet A500 Allergy Unknown upset Verified 11/30/21 12:10 stomach melatonin Allergy Unknown Nausea and Verified 11/30/21 12:10 Vomiting oxycodone [From PERCOCET] Allergy Unknown NAUSEA,VOMI Verified 11/30/21 12:10 TING Propoxyphene HCl Allergy Unknown upset Verified 11/30/21 12:10 stomach influenza virus vaccine, AdvReac Intermediate NAUSEA,DIAR Verified 11/30/21 12:10 specific WU [FLU VACCINE] lactose [LACTOSE] AdvReac Intermediate GI UPSET Verified 11/30/21 12:10 metronidazole [From FLAGYL] AdvReac Intermediate NAUSEA & Verified 11/30/21 12:10 VOMITING Sulfa (Sulfonamide AdvReac Intermediate EYE DROPS Verified 11/30/21 12:10 Antibiotics) (ONLY)-IRITIS Review of Systems Review of Systems: All other systems are reviewed and are negative Constitutional: Reports as per HPI and Reports no additional constitutional complaints Eyes: Reports as per HPI and Reports no additional eye complaints Reports system reviewed and no additional complaints, except as documented Cardiovascular: Reports as per HPI and Reports no additional cardiovascular complaints Respiratory: Reports as per HPI and Reports no additional respiratory complaints Gastrointestinal: Reports as per HPI and Reports no additional gastrointestinal complaints Genitourinary: Reports no additional female genitourinary complaints Musculoskeletal: Reports no additional musculoskeletal complaints Skin/Breast: Reports system reviewed and no additional complaints, except as docu Psychiatric: Reports no additional psychiatric complaints Endocrine: Reports no additional endocrine complaints Hematologic/Lymphatic: Reports no additional hematologic/lymphatic complaints Allergic/Immunologic: Reports no additional allergic/immunologic complaints Reports system reviewed and no additional complaints, except as documented and Reports Abnormal speech present [facility] Past Medical History Medical History Anxiety CAD (coronary artery disease) Cervical stenosis of spine COPD (chronic obstructive pulmonary disease) Depression Diabetes Diabetic polyneuropathy associated with type 2 diabetes mellitus DM type 2 (diabetes mellitus, type 2) DM type 2 (diabetes mellitus, type 2) HTN (hypertension) Hyperlipidemia Left leg swelling Low vitamin D level Migraine headache Neck pain Nonalcoholic steatohepatitis (CHRISTINE) Pulmonary nodule Smoker Vertigo Vitamin B 12 deficiency Vitamin B12 deficiency Surgical History Fusion of spine of cervical region History of carpal tunnel release History of hysterectomy Family History Family History Mother CVD (cardiovascular disease) CVA (cerebral vascular accident) Father CVD (cardiovascular disease) Social History Social History Household Members: Other Household Members Other:: housemate Housing: House Do you presently have visiting nurse or other home services: No Alcohol intake: never Patient Tobacco Use Status: Current everyday Tobacco user Tobacco use type: Cigarette Cigarettes Per Day: 8 Years Smoked: 62 e-Cigarette/Vaping Use: Never Used Use of substances other than those prescribed or required for medical reasons: No Advance Directives: Yes Advance Directives on File: Yes Advance Directives Date on File: 11/14/21 service: No Current occupational status: retired Current occupation: Right Handed Cognitive needs: No Hearing needs: No Vision needs: Yes Physical Exam Vital Signs: Vital Signs: Last Vital Signs Temp 98.5 F 11/30/21 18:49 Pulse 92 11/30/21 18:49 Resp 16 11/30/21 12:06 BP 169/47 H 11/30/21 18:49 Pulse Ox 96 11/30/21 18:49 O2 Del Method 11/30/21 18:49 BMI result Body Mass Index 27.1 Vital signs have been reviewed as appeared to be correct. Blood pressure normal. Heart rate normal. Respiration rate normal. Temperature normal. Oxygen saturation normal. Appearance: Alert. Oriented X3. No acute distress. Head: Normal external exam. Normocephalic. Atraumatic. No Mendoza signs noted. No raccoon eyes noted Eyes: PERRLA. EOMI. Conjunctiva and sclera normal. Eyelids normal. ENT: TM's Normal. Pharynx normal. Uvula midline. Moist mucous membranes. No trismus noted. No drooling noted. No muffled voice noted. Neck: Normal inspection. Neck supple. FROM. No adenopathy. Thyroid Normal. No meningeal signs. No neck mass noted. CVS: Normal heart rate and rhythm. Heart sound normal. No murmurs noted. Pulses normal throughout. Respiratory: No respiratory distress. Painless inspiration. Breath sounds normal. Diffuse mild expiratory wheezing with prolonged expiration. Chest nontender. No accessory muscle usage noted or decreased air movement noted. Abdomen: Soft and nontender. Bowel sounds normal in all 4 quadrants. No distention noted. No organomegaly noted. No visible injury noted. Back: No CVA tenderness. Full range of motion noted. Skin: Skin warm and dry. Normal skin color. Normal skin turgor. No rashes/lesions/lacerations noted. Extremities: No lower extremity edema. Extremities exhibit normal range of motion. Extremities nontender. Neuro: Oriented X 3. Cranial nerve exam: II-XII are grossly intact No motor deficit. No sensory deficit. Reflexes normal. Course Course Course Narrative: 71-year-old female with longstanding history of smoking and COPD, patient presented with difficulty breathing, patient had recent hospitalization was discharged home on prednisone. Patient do not meet criteria for SIRS (1st temp done and triage is 96.7 which was done by a temporal thermometer that is not accurate), patient has leukocytosis which is reactionary to prednisone use. Therefore patient does not need a full sepsis workup or antibiotic coverage. No clinical suspicion for PE and patient had CT angio of the chest 5 days ago. MDM - SOB/Dyspnea Lab Data Attestation: I reviewed the patient's lab results. Result diagrams: 11/30/21 13:59 11/30/21 13:59 Labs: Lab Results 11/30/21 11/30/21 11/30/21 Range/Units 13:59 13:59 13:59 WBC 13.3 H (4.8-10.8) X10*3/uL RBC 4.83 (4.20-5.50) X10*6/uL Hgb 12.0 (12.0-16.0) g/dl Hct 40.3 (37.0-47.0) % MCV 83.4 (80.0-98.0) fL MCH 24.8 L (27.0-33.0) pg MCHC 29.8 L (31.0-35.0) g/dl RDW 16.6 H (11.0-16.0) % Plt Count 243 (160-400) X10*3/uL MPV 10.6 (9.4-12.3) fL Immature Gran % (Auto) 1.4 H (0.0-0.4) % Neut % (Auto) 87.6 H (45-73) % Lymph % (Auto) 7.9 L (20-40) % Nobles % (Auto) 2.1 (2-11) % Eos % (Auto) 0.8 (0-4) % Baso % (Auto) 0.2 (0-2) % Lymph # (Auto) 1.1 L (1.2-4.9) X10*3/uL Nobles # (Auto) 0.3 (0.1-1.2) X10*3/uL Eos # (Auto) 0.1 (0.0-0.4) X10*3/uL Baso # (Auto) 0.0 (0.0-0.2) X10*3/uL Abs Immat Gran (auto) 0.19 H (0.00-0.03) X10*3/uL Absolute Neuts (auto) 11.6 H (2.0-8.3) x10*3/uL Absolute Nucleated RBC 0.000 (0.0-0.012) X10*3/uL Nucleated RBC % (auto) 0.0 (0.0-0.2) /100WBC Sodium 142 (135-145) mmol/L Potassium 4.0 (3.3-5.1) mmol/L Chloride 104 (96-108) mmol/L Carbon Dioxide 28 (22-29) mmol/L Anion Gap 14 (12-20) BUN 19 H (9-16) mg/dL Creatinine 0.96 (0.5-1.4) mg/dL Estim Creat Clear Calc 45.1 Estimated GFR 57 Random Glucose 225 H (60-115) mg/dL Calcium 9.1 (8.4-10.2) mg/dL Total Bilirubin 0.2 (0.0-1.0) mg/dL AST 30 D (5-31) U/L ALT 36 H (0-31) U/L Alkaline Phosphatase 109 (39-117) U/L Troponin I High Sens (<3.5-17.0) ng/L B-Natriuretic Peptide 99 (<100) pg/mL Total Protein 7.1 (6.5-8.0) g/dL Albumin 4.1 (3.5-5.0) g/dL COVID-19 (JENNIFER) (Negative) COVID-19 Clin Com 11/30/21 11/30/21 Range/Units 13:59 13:59 WBC (4.8-10.8) X10*3/uL RBC (4.20-5.50) X10*6/uL Hgb (12.0-16.0) g/dl Hct (37.0-47.0) % MCV (80.0-98.0) fL MCH (27.0-33.0) pg MCHC (31.0-35.0) g/dl RDW (11.0-16.0) % Plt Count (160-400) X10*3/uL MPV (9.4-12.3) fL Immature Gran % (Auto) (0.0-0.4) % Neut % (Auto) (45-73) % Lymph % (Auto) (20-40) % Nobles % (Auto) (2-11) % Eos % (Auto) (0-4) % Baso % (Auto) (0-2) % Lymph # (Auto) (1.2-4.9) X10*3/uL [place] # (Auto) (0.1-1.2) X10*3/uL Eos # (Auto) (0.0-0.4) X10*3/uL Baso # (Auto) (0.0-0.2) X10*3/uL Abs Immat Gran (auto) (0.00-0.03) X10*3/uL Absolute Neuts (auto) (2.0-8.3) x10*3/uL Absolute Nucleated RBC (0.0-0.012) X10*3/uL Nucleated RBC % (auto) (0.0-0.2) /100WBC Sodium (135-145) mmol/L Potassium (3.3-5.1) mmol/L Chloride (96-108) mmol/L Carbon Dioxide (22-29) mmol/L Anion Gap (12-20) BUN (9-16) mg/dL Creatinine (0.5-1.4) mg/dL Estim Creat Clear Calc Estimated GFR Random Glucose (60-115) mg/dL Calcium (8.4-10.2) mg/dL Total Bilirubin (0.0-1.0) mg/dL AST (5-31) U/L ALT (0-31) U/L Alkaline Phosphatase (39-117) U/L Troponin I High Sens 14.5 D (<3.5-17.0) ng/L B-Natriuretic Peptide (<100) pg/mL Total Protein (6.5-8.0) g/dL Albumin (3.5-5.0) g/dL COVID-19 (JENNIFER) Negative (Negative) COVID-19 Clin Com See Note Imaging Data Chest x-ray: Attestation: I personally reviewed and interpreted this imaging study as follows: Radiologist's impression: No active chest disease. Discharge Plan Discharge Clinical Impression: Acute exacerbation of chronic obstructive airways disease Patient Disposition: Admitted As Inpatient
--- NOTE | 2021-12-01 00:53 | ECG_ITS ---
Test Reason : cp Blood Pressure : / mmHG Vent. Rate : 094 BPM Atrial Rate : 094 BPM P-R Int : 166 ms QRS Dur : 130 ms QT Int : 408 ms P-R-T Axes : 068 083 057 degrees QTc Int : 510 ms Sinus rhythm with marked sinus arrhythmia with occasional Premature ventricular complexes Right bundle branch block Abnormal ECG When compared with ECG of 26-NOV-2021 18:45, Premature ventricular complexes are now Present Referred By: Jimmy Rod Electronically Signed By:GUSTAVO BONILLA
--- NOTE | 2021-12-01 01:23 | PM.IMHP ---
History of Present Illness Date of Service: 12/01/21 Chief Complaint: SOB 71-year-old female with a past medical history of hypertension, hyperlipidemia, diabetes, COPD, not on home oxygen; recent admission to the hospital for acute COPD exacerbation/bronchitis-discharged on prednisone/doxycycline presented to the hospital today with a chief complaint of shortness of breath. Patient reported that she was compliant with her home medications. But today she went outside and in the heat she felt short of breath. She came back into the house and tried to use her home inhalers with no significant improvement and got anxious and subsequently called the EMS and came to ER for further evaluation. At the time of my interview reports source breathing is slightly better. But not back to her baseline. Denies any fever chills. Denies any chest pain or palpitations. Review of all other systems is negative except mentioned above ER course: Per ER team patient on presentation noted to have diminished breath sounds; concern for COPD exacerbation. Admitted for further management. [facility] Medical History Anxiety CAD (coronary artery disease) Cervical stenosis of spine COPD (chronic obstructive pulmonary disease) Depression Diabetes Diabetic polyneuropathy associated with type 2 diabetes mellitus DM type 2 (diabetes mellitus, type 2) DM type 2 (diabetes mellitus, type 2) HTN (hypertension) Hyperlipidemia Left leg swelling Low vitamin D level Migraine headache Neck pain Nonalcoholic steatohepatitis (CHRISTINE) Pulmonary nodule Smoker Vertigo Vitamin B 12 deficiency Vitamin B12 deficiency Family History Mother CVD (cardiovascular disease) CVA (cerebral vascular accident) Father CVD (cardiovascular disease) Surgical History Fusion of spine of cervical region History of carpal tunnel release History of hysterectomy Social History Household Members: Other Household Members Other:: housemate Housing: House Do you presently have visiting nurse or other home services: No Alcohol intake: never Patient Tobacco Use Status: Current everyday Tobacco user Tobacco use type: Cigarette Cigarettes Per Day: 8 Years Smoked: 62 e-Cigarette/Vaping Use: Never Used Use of substances other than those prescribed or required for medical reasons: No Advance Directives: Yes Advance Directives on File: Yes Advance Directives Date on File: 11/14/21 service: No Current occupational status: retired Current occupation: Right Handed Cognitive needs: No Hearing needs: No Vision needs: Yes Meds Allergies Allergy/AdvReac Type Severity Reaction Status Date / Time amoxicillin [AMOXICILLIN] Allergy Mild DIARRHEA Verified 11/30/21 12:10 Darvocet A500 Allergy Unknown upset Verified 11/30/21 12:10 stomach melatonin Allergy Unknown Nausea and Verified 11/30/21 12:10 Vomiting oxycodone [From PERCOCET] Allergy Unknown NAUSEA,VOMI Verified 11/30/21 12:10 TING Propoxyphene HCl Allergy Unknown upset Verified 11/30/21 12:10 stomach influenza virus vaccine, AdvReac Intermediate NAUSEA,DIAR Verified 11/30/21 12:10 specific WU [FLU VACCINE] lactose [LACTOSE] AdvReac Intermediate GI UPSET Verified 11/30/21 12:10 metronidazole [From FLAGYL] AdvReac Intermediate NAUSEA & Verified 11/30/21 12:10 VOMITING Sulfa (Sulfonamide AdvReac Intermediate EYE DROPS Verified 11/30/21 12:10 Antibiotics) (ONLY)-IRITIS Active Medications: Current Medications Acetaminophen (Acetaminophen 325 Mg Tablet) 650 mg PO Q6H PRN PRN Reason: Pain, Mild (Pain Scale 1-3) Albuterol/Ipratropium (Albuterol/Iprat 2.5/0.5mg 3 Ml Ampul.Neb) 3 ml INHALE RQ4H WHILE AWAKE ALEXANDRE Albuterol/Ipratropium (Albuterol/Iprat 2.5/0.5mg 3 Ml Ampul.Neb) 3 ml INHALE RQ4H PRN PRN Reason: Shortness of Breath/Wheezing Azithromycin (Azithromycin 500 Mg Tablet) 500 mg PO Q24H ALEXANDRE Dextrose (Dextrose 50 % 25 Gm/50 Ml Syringe) 25 gm IVPUSH Q15M PRN; Protocol PRN Reason: per Hypoglycemia Standing Ord. Enoxaparin Sodium (Enoxaparin Sodium 40 Mg/0.4 Ml Syringe) 40 mg SUBCUT Q24H ALEXANDRE Glucose (Glucose Gel 15 Gm Gel..Gram.) 15 gm PO Q15M PRN; Protocol PRN Reason: per Hypoglycemia Standing Ord. Insulin Human Lispro (Insulin Lispro 100 Unit/Ml 3 Ml Vial) 0 unit SUBCUT QIDACHS ALEXANDRE; Protocol Melatonin (Melatonin 3 Mg Tablet) 6 mg PO BEDTIME PRN PRN Reason: Insomnia Senna (Sennosides 8.6 Mg Tablet) 17.2 mg PO BEDTIME PRN PRN Reason: Constipation Sodium Chloride (0.9 % Sodium Chloride Flush 3 Ml Syringe) 3 ml IVFLUSH [facility] Home Medications Medication Instructions Recorded Confirmed Last Taken Type [id number]-ysobhxoylwtga-wxebmhuc 1 tab PO Q6H PRN Pain 12/25/20 11/20/21 Unknown History 50 mg-325 mg-40 mg tablet multivitamin (Daily Multi-Vitamin 1 tab PO BEDTIME 12/25/20 11/20/21 09/09/21 History tablet) meclizine 25 mg tablet 25 mg PO TID PRN Dizziness 01/02/21 11/20/21 11/13/21 History fluticasone fur. 100 mcg-umeclid 1 inh inhalation BEDTIME 08/09/21 11/20/21 11/13/21 History 62.5 mcg-vilant 25 mcg inhalat.powder (Trelegy Ellipta) lisinopril 2.5 mg tablet 2.5 mg PO BEDTIME 08/09/21 11/20/21 11/13/21 History bupropion HCl 150 mg tablet,12 hr 150 mg PO BEDTIME 08/30/21 11/20/21 11/13/21 History sustained-release aspirin 81 mg chewable tablet 1 tab PO BEDTIME 09/11/21 11/20/21 11/13/21 History atorvastatin 80 mg tablet 80 mg PO BEDTIME 09/11/21 11/20/21 11/13/21 History cholecalciferol (vitamin D3) 25 25 mcg PO BEDTIME 09/11/21 11/20/21 Unknown History mcg (1,000 unit) tablet cyanocobalamin (vitamin B-12) 2 tab PO BEDTIME 09/11/21 11/20/21 09/09/21 History 1,000 mcg tablet lidocaine 5 % topical patch 1 patch topical DAILY PRN Pain 09/11/21 11/20/21 11/13/21 History nitroglycerin 0.4 mg sublingual 1 tab sublingual NEEDED angina 09/11/21 11/20/21 Unknown History tablet isosorbide mononitrate 30 mg 30 mg PO DAILY 09/25/21 11/20/21 11/13/21 History tablet,extended release 24 hr zolpidem 5 mg tablet 5 mg PO BEDTIME PRN Insomnia 11/06/21 11/20/21 11/13/21 History ascorbic acid (vitamin C) 500 mg 500 mg PO DAILY 11/14/21 11/20/21 Unknown History tablet gabapentin 100 mg capsule 200 mg PO BID 11/14/21 11/20/21 11/13/21 History nicotine 7 mg/24 hr daily 7 mg transdermal DAILY PRN 11/14/21 11/20/21 Unknown History transdermal patch Nicotine Cravings amlodipine 5 mg tablet 5 mg PO DAILY 11/20/21 11/20/21 Unknown History lancets 33 gauge (TRUEplus Lancets) #100 ea 11/20/21 11/20/21 Unknown History Physical Exam Vital Signs and Narrative: Vital Signs: Last Vital Signs Temp 98.5 F 11/30/21 18:49 Pulse 92 11/30/21 18:49 Resp 16 11/30/21 12:06 BP 169/47 H 11/30/21 18:49 Pulse Ox 96 11/30/21 18:49 O2 Del Method 11/30/21 18:49 BMI result Body Mass Index 27.1 Gen: Appears be in no acute distress; able to speak in full sentences. Breathing comfortably on room air. HEENT: NCAT, Moist mucosa. Pulmonary: Slightly diminished breath sounds CVS: Normal S1-S2 Abdomen: BS+, Soft, Nontender Extremities: Warm well perfused Neuro: Alert and awake. Grossly nonfocal Results Labs CBC and Chem 7: 11/30/21 13:59 11/30/21 13:59 Labs: Laboratory Results - last 24 hr 11/30/21 11/30/21 11/30/21 13:59 13:59 13:59 MCV 83.4 MCH 24.8 L MCHC 29.8 L RDW 16.6 H Plt Count 243 MPV 10.6 Immature Gran % (Auto) 1.4 H Neut % (Auto) 87.6 H Lymph % (Auto) 7.9 L [place] % (Auto) 2.1 Eos % (Auto) 0.8 Baso % (Auto) 0.2 Lymph # (Auto) 1.1 L [place] # (Auto) 0.3 Eos # (Auto) 0.1 Baso # (Auto) 0.0 Abs Immat Gran (auto) 0.19 H Absolute Neuts (auto) 11.6 H Absolute Nucleated RBC 0.000 Nucleated RBC % (auto) 0.0 Anion Gap 14 Estim Creat Clear Calc 45.1 Estimated GFR 57 Random Glucose 225 H Calcium 9.1 Total Bilirubin 0.2 AST 30 D ALT 36 H Alkaline Phosphatase 109 Troponin I High Sens B-Natriuretic Peptide 99 Total Protein 7.1 Albumin 4.1 COVID-19 (JENNIFER) COVID-19 Clin Com 11/30/21 11/30/21 13:59 13:59 MCV MCH MCHC RDW Plt Count MPV Immature Gran % (Auto) Neut % (Auto) Lymph % (Auto) [place] % (Auto) Eos % (Auto) Baso % (Auto) Lymph # (Auto) [place] # (Auto) Eos # (Auto) Baso # (Auto) Abs Immat Gran (auto) Absolute Neuts (auto) Absolute Nucleated RBC Nucleated RBC % (auto) Anion Gap Estim Creat Clear Calc Estimated GFR Random Glucose Calcium Total Bilirubin AST ALT Alkaline Phosphatase Troponin I High Sens 14.5 D B-Natriuretic Peptide Total Protein Albumin COVID-19 (JENNIFER) Negative COVID-19 Clin Com See Note Imaging Radiologist's Impressions: Impressions Chest X-Ray 11/30/21 14:12 IMPRESSION: No active chest disease. Assessment and Plan (1) Acute exacerbation of chronic obstructive airways disease: Status: Acute Plan 71-year-old female with a past medical history of hypertension, hyperlipidemia, diabetes, COPD, not on home oxygen; recent admission to the hospital for acute COPD exacerbation/bronchitis-discharged on prednisone/doxycycline presented to the hospital today with a chief complaint of shortness of breath. Noted to be in acute COPD exacerbation. Admitted for further management. Acute COPD exacerbation: Patient was recently discharged on prednisone taper/doxycycline. Will give the patient IV Solu-Medrol acute bleed about to prednisone in a day; as patient reports she already started to improve. Will consult pulmonology Continue doxycycline DuoNebs standing and p.r.n. History of diabetes: Insulin sliding scale. History of hypertension/hyperlipidemia: Continue home medications DVT prophylaxis: Lovenox Code status: Full code Quality Stroke Does the patient have a stroke diagnosis?: No VTE Prior VTE?: No VTE Risk Level:: Medical - moderate - high VTE Device Contraindication: N/A - Device Ordered VTE Drug Contraindication: Treatment Not Indicated
[2021-12-01] MEDS: Acetaminophen 325 MG TABLET 650 MG PO ×3 (04:22→22:21)
[2021-12-01 06:24] LABS: MANUAL DIFF FLAG NO
[2021-12-01 06:26] LABS: Basophils Percent Auto 0.1 % (0-2); Hematocrit 35.3 % (37.0-47.0); Hemoglobin 10.9 g/dl (12.0-16.0); Imm Gran Abs Auto 0.27 X10*3/uL (0.00-0.03); Imm Gran Pct Auto 2.2 % (0.0-0.4); Lymphocytes Absolute Auto 1.1 X10*3/uL (1.2-4.9); Mean Corpuscular HGB Conc 30.9 g/dl (31.0-35.0); Mean Corpuscular Hemoglobin 25.5 pg (27.0-33.0); Mean Corpuscular Volume 82.7 fL (80.0-98.0); Mean Platelet Volume 10.4 fL (9.4-12.3); Monocytes Absolute Auto 0.6 X10*3/uL (0.1-1.2); Monocytes Percent Auto 4.8 % (2-11); Neutrophils Absolute Auto 10.4 x10*3/uL (2.0-8.3); Neutrophils Percent Auto 83.9 % (45-73); Platelet Count 201 X10*3/uL (160-400); Red Blood Count 4.27 X10*6/uL (4.20-5.50); Red Cell Distribution Width 16.3 % (11.0-16.0); White Blood Count 12.4 X10*3/uL (4.8-10.8)
[2021-12-01 06:45] LABS: Anion Gap 14 (12-20); Blood Urea Nitrogen 25 mg/dL (9-16); Carbon Dioxide 23 mmol/L (22-29); Chloride 105 mmol/L (96-108); Creatinine Clr Calc Pharmacy 42.1; Estimated Glomerular Filt Rate 53; Glucose Random 340 mg/dL (60-115); Potassium 4.1 mmol/L (3.3-5.1); Sodium 138 mmol/L (135-145)
[2021-12-01 07:15] LABS: Glucose, Whole Blood 260 mg/dL (60-115)
--- NOTE | 2021-12-01 07:52 | PM.EVENT ---
Event Note Date of Service: 12/01/21 Event Note: Pt seen and examined. Exam: lung tight air movement. Overall feels better. A/P: per H and P of this morning. Smoking cessation discussed
[2021-12-01] MEDS: Isosorbide Mononitrate 30 MG TAB.ER.24H PO (08:23)
[2021-12-01] MEDS: lisinopriL 2.5 MG TABLET PO (08:23)
[2021-12-01] MEDS: Topiramate 100 MG TABLET PO ×2 (08:23→22:05)
[2021-12-01] MEDS: Enoxaparin Sodium 40 MG/0.4 ML SYRINGE SUBCUT (08:23)
[2021-12-01] MEDS: Insulin Lispro 100 UNIT/ML 3 ML VIAL SUBCUT ×2 (08:24→22:06)
[2021-12-01] MEDS: 0.9 % Sodium Chloride Flush 3 ML SYRINGE IVFLUSH ×2 (08:24→16:18)
--- NOTE | 2021-12-01 09:26 | PHA.MEDREC ---
Pharmacy Consult ? Medication Reconciliation Pharmacy has completed the medication reconciliation. Patient did not know names of medications. Report the only change to medications are that she was put on doxycycline and prednisone. She only has 3 day left of prednisone taper. She could confirmed she is on Trelegy and albuerol inhaler at home. Reports no one will be able to bring in the Trelegy. Also reported that gabapentin is now 3 tablet BID. Colleen Boo, PharmD
[2021-12-01 13:37] LABS: Glucose, Whole Blood 116 mg/dL (60-115)
[2021-12-01] MEDS: Albuterol/Iprat 2.5/0.5MG 3 ML AMPUL.NEB INHALE (15:24)
[2021-12-01 15:53] LABS: Glucose, Whole Blood 99 mg/dL (60-115)
[2021-12-01 19:50] LABS: Glucose, Whole Blood 219 mg/dL (60-115)
[2021-12-01] MEDS: buPROPion HCl XL 150 MG TAB.ER.24H PO (22:05)
--- NOTE | 2021-12-01 23:35 | ECG_ITS ---
Test Reason : CP Blood Pressure : / mmHG Vent. Rate : 074 BPM Atrial Rate : 074 BPM P-R Int : 134 ms QRS Dur : 130 ms QT Int : 428 ms P-R-T Axes : 052 080 055 degrees QTc Int : 475 ms Normal sinus rhythm Right bundle branch block Abnormal ECG When compared with ECG of 01-DEC-2021 01:41, Premature ventricular complexes are no longer Present Referred By: Jimmy Rod Electronically Signed By:GUSTAVO BONILLA
[2021-12-01] MEDS: Nitroglycerin 0.4 MG TAB.SUBL SUBLINGUAL ×2 (23:44→23:53)
[2021-12-02 00:16] VITALS: BP 102/54; PULSE 62
[2021-12-02] MEDS: Nitroglycerin 0.4 MG TAB.SUBL SUBLINGUAL (00:16)
[2021-12-02] MEDS: 0.9 % Sodium Chloride Flush 3 ML SYRINGE IVFLUSH ×2 (00:17→08:16)
[2021-12-02 01:45] LABS: Troponin-I High Sensitivity 17.7 ng/L (<3.5-17.0)
--- NOTE | 2021-12-02 02:56 | PC.NURSE ---
23:20 pt complained of 8/10 chest pain, non radiating. 12lead EKG was done vitals and MD made aware. STAT TROPS and nitroglycerine sublingual ([id number]). MD made aware of labs and vitals; PT reassessed pain subsided to 3/10 after 3 doses of nitroglycerine. MD made aware and repeat trops were drawn. See vitals documentation.
[2021-12-02 04:00] VITALS: BP 117/56; PULSE 65; RESP 16; TEMP 36.6; O2SAT 95
[2021-12-02 07:14] LABS: Glucose, Whole Blood 105 mg/dL (60-115)
[2021-12-02 07:44] VITALS: BP 141/60; PULSE 81; RESP 20; TEMP 36.4; O2SAT 94
[2021-12-02] MEDS: Enoxaparin Sodium 40 MG/0.4 ML SYRINGE SUBCUT (08:15)
[2021-12-02] MEDS: Topiramate 100 MG TABLET PO (08:16)
[2021-12-02] MEDS: Isosorbide Mononitrate 30 MG TAB.ER.24H PO (08:16)
[2021-12-02] MEDS: lisinopriL 2.5 MG TABLET PO (08:16)
[2021-12-02] MEDS: Acetaminophen 325 MG TABLET 650 MG PO (08:21)
[2021-12-02] MEDS: Albuterol/Iprat 2.5/0.5MG 3 ML AMPUL.NEB INHALE ×2 (08:29→11:29)
[2021-12-02 08:30] VITALS: PULSE 107; RESP 20; O2SAT 97
--- NOTE | 2021-12-02 09:05 | MHC.CM.PN ---
IMM addressed 12/02, original to patient and copy in filed in chart. Patient reports she is living with a housemate/Bandar who will transport her home. Reports is independent at home/community. Has DM supplies at home and receives no home services. HCP on file/verified. Te Angelo'd x3 (pfizer). PCP Linda Matthews. D/C Plan: Home (self-care) vs Home with New [facility]NA
--- NOTE | 2021-12-02 09:11 | P.CONPL_ITS ---
History of Present Illness History of Present Illness Consult date: 11/04/21 Reason for consult: COPD Chief complaint: COPD exacerbation Narrative: THIS 71 YEARS OLD FEMALE A REGULAR PATIENT OF MINE FOR THE PAST MANY YEARS, IS A KNOWN CASE OF ADVANCED CHRONIC OBSTRUCTIVE PULMONARY DISEASE. SHE HAS CONTINUE TO SMOKE MORE THAN 50 YEARS, CURRENTLY TRYING TO QUIT AND IS DOWN TO ABOUT 6 CIGARETTES A DAY. LATELY SHE HAS BEEN TREATED A FEW TIMES IN THE HOSPITAL FOR ACUTE EXACERBATION. LAST ADMISSION WAS ONLY 2 WEEKS AGO. SHE PRESENTED TO THE HOSPITAL AGAIN BECAUSE SHE BECAME OVERLY SHORT OF BREATH, AND IN SPITE OF USING HER REGULAR INHALERS, INCLUDING DUONEB UPDRAFT, SHE DID NOT IMPROVE. HOWEVER SHE DENIES ANY RECENT RESPIRATORY INFECTION, INCREASE IN THE COUGH OR EXPECTORATION, OR ANY CHEST PAIN. THE PATIENT IS ON MAXIMUM TREATMENT AT HOME INCLUDING TRELEGY 1 INHALATION DAILY, DUONEB UPDRAFTS Q 6 HOURS, AND PROAIR 2 PUFFS Q 4-6 HOURS P.R.N., SHE DOES NOT HAVE HOME OXYGEN DURING HER LAST HOSPITALIZATION SHE DID NOT QUALIFY FOR THAT. I THINK THE HEAT WAVE AND HIGH TEMPERATURES WITH HUMIDITY MAY HAVE CONTRIBUTED TO HER ACUTE SYMPTOMS. PATIENT ALSO HAS ADVANCED CORONARY ARTERY DISEASE THE, BUT DID NOT HAVE ANY CHEST PAIN OR CARDIAC ARRHYTHMIAS. Review of Systems Review of Systems: Yes all other systems are reviewed and are negative Constitutional: Constitutional: Reports fatigue Eyes: Eyes: Reports no additional eye complaints ENT: Reports system reviewed and no additional complaints, except as documented Cardiovascular: Cardiovascular: Denies chest pain, Denies irregular heart rhythm and Denies leg edema Respiratory: Respiratory: Reports as per HPI Gastrointestinal: Gastrointestinal: Reports no additional gastrointestinal complaints Genitourinary: Genitourinary: Reports no additional female genitourinary complaints Musculoskeletal: Musculoskeletal: Reports back pain (MILD) Integumentary/Breasts: Skin/Breast: Reports system reviewed and no additional complaints, except as docu Neurologic: Reports system reviewed and no additional complaints, except as documented Psychiatric: Psychiatric: Reports anxiety Endocrine: Endocrine: Reports fatigue PMFSH Past Medical History Medical History Anxiety CAD (coronary artery disease) Cervical stenosis of spine COPD (chronic obstructive pulmonary disease) Depression Diabetes Diabetic polyneuropathy associated with type 2 diabetes mellitus DM type 2 (diabetes mellitus, type 2) DM type 2 (diabetes mellitus, type 2) HTN (hypertension) Hyperlipidemia Left leg swelling Low vitamin D level Migraine headache Neck pain Nonalcoholic steatohepatitis (CHRISTINE) Pulmonary nodule Smoker Vertigo Vitamin B 12 deficiency Vitamin B12 deficiency Family History Family History Mother CVD (cardiovascular disease) CVA (cerebral vascular accident) Father CVD (cardiovascular disease) Surgical History Surgical History Fusion of spine of cervical region History of carpal tunnel release History of hysterectomy Social History Social History Household Members: Other Household Members Other:: roommate Housing: House Do you presently have visiting nurse or other home services: No Alcohol intake: never Patient Tobacco Use Status: Current everyday Tobacco user Tobacco use type: Cigarette Cigarettes Per Day: 6 Years Smoked: 62 e-Cigarette/Vaping Use: Never Used Advance Directives Date on File: 11/14/21 service: No Current occupational status: retired Current occupation: Right Handed Cognitive needs: No Hearing needs: No Vision needs: Yes Meds Allergies Allergy/AdvReac Type Severity Reaction Status Date / Time amoxicillin [AMOXICILLIN] Allergy Mild DIARRHEA Verified 11/30/21 12:10 Darvocet A500 Allergy Unknown upset Verified 11/30/21 12:10 stomach melatonin Allergy Unknown Nausea and Verified 11/30/21 12:10 Vomiting oxycodone [From PERCOCET] Allergy Unknown NAUSEA,VOMI Verified 11/30/21 12:10 TING Propoxyphene HCl Allergy Unknown upset Verified 11/30/21 12:10 stomach influenza virus vaccine, AdvReac Intermediate NAUSEA,DIAR Verified 11/30/21 12:10 specific WU [FLU VACCINE] lactose [LACTOSE] AdvReac Intermediate GI UPSET Verified 11/30/21 12:10 metronidazole [From FLAGYL] AdvReac Intermediate NAUSEA & Verified 11/30/21 12:10 VOMITING Sulfa (Sulfonamide AdvReac Intermediate EYE DROPS Verified 11/30/21 12:10 Antibiotics) (ONLY)-IRITIS Active Medications: Current Medications Acetaminophen (Acetaminophen 325 Mg Tablet) 650 mg PO Q6H PRN PRN Reason: Pain, Mild (Pain Scale 1-3) Last Admin: 12/02/21 08:21 Dose: 650 mg Albuterol/Ipratropium (Albuterol/Iprat 2.5/0.5mg 3 Ml Ampul.Neb) 3 ml INHALE RQ4H WHILE AWAKE [facility] Last Admin: 12/02/21 08:29 Dose: 3 ml Albuterol/Ipratropium (Albuterol/Iprat 2.5/0.5mg 3 Ml Ampul.Neb) 3 ml INHALE RQ4H PRN PRN Reason: Shortness of Breath/Wheezing Bupropion HCl (Bupropion Hcl Xl 150 Mg Tab.Er.24h) 150 mg PO BEDTIME [facility] Last Admin: 12/01/21 22:05 Dose: 150 mg Dextrose (Dextrose 50 % 25 Gm/50 Ml Syringe) 25 gm IVPUSH Q15M PRN; Protocol PRN Reason: per Hypoglycemia Standing Ord. Doxycycline Hyclate (Doxycycline Hyclate 100 Mg Tablet) 100 mg PO Q12H [facility] Last Admin: 12/02/21 04:05 Dose: 100 mg Enoxaparin Sodium (Enoxaparin Sodium 40 Mg/0.4 Ml Syringe) 40 mg SUBCUT Q24H [facility] Last Admin: 12/02/21 08:15 Dose: 40 mg Glucose (Glucose Gel 15 Gm Gel..Gram.) 15 gm PO Q15M PRN; Protocol PRN Reason: per Hypoglycemia Standing Ord. Insulin Human Lispro (Insulin Lispro 100 Unit/Ml 3 Ml Vial) 0 unit SUBCUT QIDACHS [facility]; Protocol Last Admin: 12/02/21 08:02 Dose: Not Given Isosorbide Mononitrate (Isosorbide Mononitrate 30 Mg Tab.Er.24h) 30 mg PO DAILY [facility]; Protocol Last Admin: 12/02/21 08:16 Dose: 30 mg Lisinopril (Lisinopril 2.5 Mg Tablet) 2.5 mg PO DAILY [facility]; Protocol Last Admin: 12/02/21 08:16 Dose: 2.5 mg Melatonin (Melatonin 3 Mg Tablet) 6 mg PO BEDTIME PRN PRN Reason: Insomnia Nitroglycerin (Nitroglycerin 0.4 Mg Tab.Subl) 0.4 mg SUBLINGUAL Q5MX3 PRN PRN Reason: Chest Pain Last Admin: 12/02/21 00:16 Dose: 0.4 mg Pharmacy Consult (Consult Rx Perform Med Rec) 1 each MISCELLANE ONCE PRN PRN Reason: Consult order Senna (Sennosides 8.6 Mg Tablet) 17.2 mg PO BEDTIME PRN PRN Reason: Constipation Sodium Chloride (0.9 % Sodium Chloride Flush 3 Ml Syringe) 3 ml IVFLUSH QSHIFT [facility] Last Admin: 12/02/21 08:16 Dose: 3 ml Topiramate (Topiramate 100 Mg Tablet) 100 mg PO BID [facility] Last Admin: 12/02/21 08:16 Dose: 100 mg Home Medications Medication Instructions Recorded Confirmed Last Taken Type [id number] 1 tab PO Q6H PRN Pain 12/25/20 12/01/21 Unknown History 50 mg-325 mg-40 mg tablet multivitamin (Daily Multi-Vitamin 1 tab PO BEDTIME 12/25/20 12/01/21 09/09/21 History tablet) meclizine 25 mg tablet 25 mg PO TID PRN Dizziness 01/02/21 12/01/21 11/13/21 History fluticasone fur. 100 mcg-umeclid 1 inh inhalation BEDTIME 08/09/21 12/01/21 11/13/21 History 62.5 mcg-vilant 25 mcg inhalat.powder (Trelegy Ellipta) lisinopril 2.5 mg tablet 2.5 mg PO BEDTIME 08/09/21 12/01/21 11/13/21 History bupropion HCl 150 mg tablet,12 hr 150 mg PO BEDTIME 08/30/21 12/01/21 11/13/21 History sustained-release aspirin 81 mg chewable tablet 1 tab PO BEDTIME 09/11/21 12/01/21 11/13/21 History atorvastatin 80 mg tablet 80 mg PO BEDTIME 09/11/21 12/01/21 11/13/21 History cholecalciferol (vitamin D3) 25 25 mcg PO BEDTIME 09/11/21 12/01/21 Unknown History mcg (1,000 unit) tablet cyanocobalamin (vitamin B-12) 2 tab PO BEDTIME 09/11/21 12/01/21 09/09/21 History 1,000 mcg tablet lidocaine 5 % topical patch 1 patch topical DAILY PRN Pain 09/11/21 12/01/21 11/13/21 History nitroglycerin 0.4 mg sublingual 1 tab sublingual NEEDED angina 09/11/21 12/01/21 Unknown History tablet isosorbide mononitrate 30 mg 30 mg PO DAILY 09/25/21 12/01/21 11/13/21 History tablet,extended release 24 hr zolpidem 5 mg tablet 5 mg PO BEDTIME PRN Insomnia 11/06/21 12/01/21 11/13/21 History ascorbic acid (vitamin C) 500 mg 500 mg PO DAILY 11/14/21 12/01/21 Unknown History tablet gabapentin 100 mg capsule 300 mg PO BID 11/14/21 12/01/21 11/13/21 History amlodipine 5 mg tablet 5 mg PO DAILY 11/20/21 12/01/21 Unknown History lancets 33 gauge (TRUEplus Lancets) #100 ea 11/20/21 11/20/21 Unknown History nystatin 100,000 unit/gram topical 1 appl topical TID PRN Rash 12/01/21 12/01/21 Unknown History powder prednisone 20 mg tablet See Taper PO DAILY 12/01/21 12/01/21 Unknown History Physical Exam Vital Signs: Vital Signs: Last Vital Signs Temp 97.6 F 12/02/21 07:44 Pulse 107 H 12/02/21 08:30 Resp 20 12/02/21 08:30 BP 141/60 H 12/02/21 07:44 Pulse Ox 94 12/02/21 07:44 O2 Del Method 12/02/21 07:44 BMI result Body Mass Index 27.1 Const: General: comfortable, no acute distress, alert and awake Orientation/consciousness: patient oriented x3 HEENT: Head: Yes normal to inspection General nose exam: No nasal polyps present and No nasal discharge present Face and sinus: Yes sinuses nontender Mouth: oropharynx normal Throat: Yes posterior oropharynx normal Eyes: General: appearance normal, both eyes and all related structures Neck: Neck: Yes normal visual inspection, Yes no lymphadenopathy, Yes trachea midline and Yes no JVD Thyroid: Thyroid normal Chest: Chest palpation & inspection: normal inspection of the chest, normal palpation of entire chest wall and no tenderness Resp: Other: PERCUSSION NOTE RESONANT, BREATH SOUNDS ARE EQUAL ON BOTH SIDES BUT VERY DISTANT WITH PROLONGED EXPIRATORY PHASE. NO WHEEZES RHONCHI OR CREPITATIONS ARE HEARD AT THIS TIME. Cardio: Palpation: normal PMI Rate: regular rate Rhythm: regular rhythm Heart sounds: no gallops and no murmurs GI: Palpation (GI): Soft to palpation, nontender, No hepatosplenomegaly present and no masses Auscultation: normal bowel sounds Back/Spine/Pelvis: Thoracic/Lumbar Spine: thoracic and lumbar spine normal to inspection Skin: General skin exam: no rashes or lesions noted Neuro: General: patient oriented x3 and no focal motor deficits Cranial nerves: Yes CN's II-XII intact bilaterally Extrem: General: Yes normal to inspection, Yes no clubbing, cyanosis or edema and Yes no calf tenderness Psych: Appearance: grossly normal and well kempt Speech and movement: Normal speech and movement present Results Laboratory Findings CBC and BMP: 12/01/21 06:17 12/01/21 06:17 Abnormal lab findings: Abnormal Labs 11/30/21 11/30/21 12/01/21 13:59 13:59 06:17 WBC 13.3 H 12.4 H Hgb 10.9 L Hct 35.3 L MCH 24.8 L 25.5 L MCHC 29.8 L 30.9 L RDW 16.6 H 16.3 H Immature Gran % (Auto) 1.4 H 2.2 H Neut % (Auto) 87.6 H 83.9 H Lymph % (Auto) 7.9 L 9.0 L Lymph # (Auto) 1.1 L 1.1 L Abs Immat Gran (auto) 0.19 H 0.27 H Absolute Neuts (auto) 11.6 H 10.4 H BUN 19 H POC Glucose Random Glucose 225 H ALT 36 H Troponin I High Sens 12/01/21 12/01/21 12/01/21 06:17 07:12 13:31 WBC Hgb Hct MCH MCHC RDW Immature Gran % (Auto) Neut % (Auto) Lymph % (Auto) Lymph # (Auto) Abs Immat Gran (auto) Absolute Neuts (auto) BUN 25 H POC Glucose 260 H 116 H Random Glucose 340 H ALT Troponin I High Sens 12/01/21 12/01/21 12/02/21 19:39 23:44 01:13 WBC Hgb Hct MCH MCHC RDW Immature Gran % (Auto) Neut % (Auto) Lymph % (Auto) Lymph # (Auto) Abs Immat Gran (auto) Absolute Neuts (auto) BUN POC Glucose 219 H Random Glucose ALT Troponin I High Sens 20.0 H 17.7 H Diagnostic Findings Chest x-ray: report reviewed and image reviewed Assessment and Plan (1) Acute exacerbation of chronic obstructive airways disease: Status: Acute (2) Smoker: Status: Acute Plan PATIENT ADMITTED WITH ACUTE EXACERBATION OF CHRONIC OBSTRUCTIVE PULMONARY DISEASE. THERE IS NO EVIDENCE OF ANY ACUTE RESPIRATORY INFECTION. HIGH TEMPERATURE AND HUMIDITY MAY HAVE CONTRIBUTED TO HER ACUTE EXACERBATION. SHE HAS VERY SEVERE OBSTRUCTIVE AIRWAY DISORDER, AND IT DOES NOT TAKE MUCH FOR HER TO DECOMPENSATE. SHE IS AN ACTIVE SMOKER. RECC . I DISCUSSED WITH HER ABOUT SMOKING AND SHE INDICATES THAT SHE IS DEFINITELY GOING TO QUIT AT THIS TIME. PREDNISONE 40 MG A DAY FOR 5 DAYS. CONTINUE TRELEGY 1 INHALATION DAILY, DUONEB UPDRAFTS Q 4-6 HOURS P.R.N.. ALTERNATELY SHE MAY USE PROAIR 2 PUFFS Q 4-6 HOURS P.R.N.. SHE HAS APPOINTMENT TO SEE ME IN ABOUT 2 WEEKS IN THE OFFICE. Procedures Date of Service Date of Service: 12/02/21
--- NOTE | 2021-12-02 10:41 | P.PNIM_ITS ---
Subjective Subjective Date of Service: 12/02/21 Interval History: f/u on copd ex interval history: better, no sob, chest pain overnight resolved, troponin ok Review of Systems no sob no ches pain headache Physical Exam Vital Signs: Vital Signs: Last Vital Signs Temp 97.6 F 12/02/21 07:44 Pulse 107 H 12/02/21 08:30 Resp 20 12/02/21 08:30 BP 141/60 H 12/02/21 07:44 Pulse Ox 94 12/02/21 07:44 O2 Del Method 12/02/21 07:44 BMI result Body Mass Index 27.1 Const: Other: General: AO X 3, no acute distress Resp: CTA bilateral CVS: S1,S2,RRR GI: +BS, NT, no distention Skin: No rash Neuro: motor grossly intact Psych: appropriate affect Objective Data Active Medications Acetaminophen (Acetaminophen 325 Mg Tablet) 650 mg PO Q6H PRN PRN Reason: Pain, Mild (Pain Scale 1-3) Last Admin: 12/02/21 08:21 Dose: 650 mg Documented By: MOO Albuterol/Ipratropium (Albuterol/Iprat 2.5/0.5mg 3 Ml Ampul.Neb) 3 ml INHALE RQ4H WHILE AWAKE [facility] Last Admin: 12/02/21 08:29 Dose: 3 ml Documented By: ABIDA Albuterol/Ipratropium (Albuterol/Iprat 2.5/0.5mg 3 Ml Ampul.Neb) 3 ml INHALE RQ4H PRN PRN Reason: Shortness of Breath/Wheezing Bupropion HCl (Bupropion Hcl Xl 150 Mg Tab.Er.24h) 150 mg PO BEDTIME [facility] Last Admin: 12/01/21 22:05 Dose: 150 mg Documented By: JENNIFER Dextrose (Dextrose 50 % 25 Gm/50 Ml Syringe) 25 gm IVPUSH Q15M PRN; Protocol PRN Reason: per Hypoglycemia Standing Ord. Doxycycline Hyclate (Doxycycline Hyclate 100 Mg Tablet) 100 mg PO Q12H [facility] Last Admin: 12/02/21 04:05 Dose: 100 mg Documented By: JENNIFER Enoxaparin Sodium (Enoxaparin Sodium 40 Mg/0.4 Ml Syringe) 40 mg SUBCUT Q24H [facility] Last Admin: 12/02/21 08:15 Dose: 40 mg Documented By: MOO Glucose (Glucose Gel 15 Gm Gel..Gram.) 15 gm PO Q15M PRN; Protocol PRN Reason: per Hypoglycemia Standing Ord. Insulin Human Lispro (Insulin Lispro 100 Unit/Ml 3 Ml Vial) 0 unit SUBCUT QIDACHS [facility]; Protocol Last Admin: 12/02/21 08:02 Dose: Not Given Documented By: MOO Non-Admin Reason: No Insulin Coverage Isosorbide Mononitrate (Isosorbide Mononitrate 30 Mg Tab.Er.24h) 30 mg PO DAILY [facility]; Protocol Last Admin: 12/02/21 08:16 Dose: 30 mg Documented By: MOO Lisinopril (Lisinopril 2.5 Mg Tablet) 2.5 mg PO DAILY [facility]; Protocol Last Admin: 12/02/21 08:16 Dose: 2.5 mg Documented By: MOO Melatonin (Melatonin 3 Mg Tablet) 6 mg PO BEDTIME PRN PRN Reason: Insomnia Nitroglycerin (Nitroglycerin 0.4 Mg Tab.Subl) 0.4 mg SUBLINGUAL Q5MX3 PRN PRN Reason: Chest Pain Last Admin: 12/02/21 00:16 Dose: 0.4 mg Documented By: JENNIFER Pharmacy Consult (Consult Rx Perform Med Rec) 1 each MISCELLANE ONCE PRN PRN Reason: Consult order Senna (Sennosides 8.6 Mg Tablet) 17.2 mg PO BEDTIME PRN PRN Reason: Constipation Sodium Chloride (0.9 % Sodium Chloride Flush 3 Ml Syringe) 3 ml IVFLUSH QSHIFT [facility] Last Admin: 12/02/21 08:16 Dose: 3 ml Documented By: MOO Topiramate (Topiramate 100 Mg Tablet) 100 mg PO BID [facility] Last Admin: 12/02/21 08:16 Dose: 100 mg Documented By: MOO Labs CBC & Chem 7: 12/01/21 06:17 12/01/21 06:17 Labs: Laboratory Results - last 24 hr 12/01/21 12/01/21 12/01/21 13:31 15:43 19:39 POC Glucose 116 H 99 219 H Troponin I High Sens 12/01/21 12/02/21 12/02/21 23:44 01:13 07:05 POC Glucose 105 Troponin I High Sens 20.0 H 17.7 H Assessment and Plan (1) COPD (chronic obstructive pulmonary disease): Status: Acute (2) Acute exacerbation of chronic obstructive airways disease: Status: Acute Plan 71-year-old female with a past medical history of hypertension, hyperlipidemia, diabetes, COPD, not on home oxygen; recent admission to the hospital for acute COPD exacerbation/bronchitis-discharged on prednisone/doxycycline presented to the hospital today with a chief complaint of shortness of breath.? Noted to be in acute COPD exacerbation.? Admitted for further management.? Patient was readmitted for exacerbation and unfortunately she continued to smoke during last hospitalization and discharge on 11/17/21. She was was treated in ED with IV steroid, bronchodilators by Neb and has been doing well. She has been evaluated Dr. Logan and is recommended for oral Prednisone 40 mg daily x 5 days. Smoking cessaton advised. Need for inpatient: exacerbation of copd Quality Stroke Does the patient have a stroke diagnosis?: No VTE Prior VTE?: No VTE Risk Level:: Medical - moderate - high VTE Device Contraindication: N/A - Device Ordered VTE Drug Contraindication: Treatment Not Indicated
[2021-12-02 10:56] LABS: Glucose, Whole Blood 112 mg/dL (60-115)
--- NOTE | 2021-12-02 11:00 | PM.DS ---
DS: Providers Provider Date of Service: 12/02/21 Date of admission: 12/01/21 01:05 Primary care physician: Linda Matthews MD Consults: 12/01/21 02:59 Consult to Pulmonology Routine Consulting Provider: Mey Logan Reason for consultation: rec COPD exacerbation DS: Diagnosis Discharge Diagnosis (1) COPD (chronic obstructive pulmonary disease): Status: Inactive (2) Acute exacerbation of chronic obstructive airways disease: Status: Resolved DS: Summary Hospital Course Hospital Course: 71-year-old female with a past medical history of hypertension, hyperlipidemia, diabetes, COPD, not on home oxygen; recent admission to the hospital for acute COPD exacerbation/bronchitis-discharged on prednisone/doxycycline on 11/17 readmitted for exacerbation of copd while she continued to smoke Hospital course: Patient was readmitted for exacerbation and unfortunately she continued to smoke during last hospitalization and discharge on 11/17/21. She was was treated in ED with IV steroid, bronchodilators by Neb and has been doing well. She has been evaluated Dr. Logan and is recommended for oral Prednisone 40 mg daily x 5 days. Smoking cessaton advised.? Time Spent with Patient Time attestation: Total time spent providing and/or coordinating discharge services: Discharge coordination time: Greater than 30 minutes Quality: Safe Use of Opioids Does Pt have an Active Cancer Diagnosis on the Problem List?: No Quality: Stroke Does the patient have a stroke diagnosis?: No Physical Exam Vital Signs: Vital Signs: Last Vital Signs Temp 97.6 F 12/02/21 07:44 Pulse 107 H 12/02/21 08:30 Resp 20 12/02/21 08:30 BP 141/60 H 12/02/21 07:44 Pulse Ox 94 12/02/21 07:44 O2 Del Method 12/02/21 07:44 BMI result Body Mass Index 27.1 Const: Other: General: AO X 3, no acute distress Resp: CTA bilateral CVS: S1,S2,RRR GI: +BS, NT, no distention Skin: No rash Neuro: motor grossly intact Psych: appropriate affect DS: Data Data Completed and Pending Labs on day of discharge: Laboratory Results - last 24 hr 12/01/21 12/01/21 12/01/21 13:31 15:43 19:39 POC Glucose 116 H 99 219 H Troponin I High Sens 07/12/02/21 12/02/21 23:44 01:13 07:05 POC Glucose 105 Troponin I High Sens 20.0 H 17.7 H 12/02/21 10:44 POC Glucose 112 Troponin I High Sens Discharge Plan Discharge Anticipated Discharge Date/Time: 12/02/21 10:54 Patient Disposition: Home, Self-Care Discharge Diagnosis: Acute exacerbation of copd Referrals: Linda Matthews MD [Primary Care Provider] - 1 Week Discharge Medications: Continued topiramate 100 mg tablet 100 mg PO BID Qty: 180 3RF acetaminophen [Tylenol] 325 mg tablet 325 mg PO Q6H PRN (Reason: pain) Qty: 90 3RF (DME) lancets [FreeStyle Lancets] 28 gauge misc See Rx Instructions .Route Qty: 100 3RF Rx Instructions: test blood sugar once a day ursodiol 500 mg tablet 500 mg PO BID Qty: 90 2RF (DME) FreeStyle Lite Strips Strip See Rx Instructions .Route Qty: 100 3RF Rx Instructions: test once a day nitroglycerin 0.4 mg tablet, sublingual 1 tab sublingual NEEDED atorvastatin 80 mg tablet 80 mg PO BEDTIME cyanocobalamin (vitamin B-12) 1,000 mcg tablet 2 tab PO BEDTIME aspirin 81 mg tablet,chewable 1 tab PO BEDTIME cholecalciferol (vitamin D3) 25 mcg (1,000 unit) tablet 25 mcg PO BEDTIME gabapentin 100 mg capsule 300 mg PO BID isosorbide mononitrate 30 mg tablet extended release 24 hr 30 mg PO DAILY metformin 750 mg tablet extended release 24 hr 750 mg PO DAILY Qty: 90 2RF amlodipine 5 mg tablet 5 mg PO DAILY (DME) lancets [TRUEplus Lancets] 33 gauge misc See Rx Instructions .ROUTE DAILY Qty: 100 Rx Instructions: As directed zolpidem 5 mg tablet 5 mg PO BEDTIME PRN (Reason: Insomnia) cetirizine [Zyrtec] 10 mg tablet 10 mg PO DAILY Qty: 30 6RF multivitamin [Daily Multi-Vitamin] Tablet 1 tab PO BEDTIME lisinopril 2.5 mg tablet 2.5 mg PO BEDTIME Trelegy Ellipta 100-62.5-25 mcg blister with device 1 inh inhalation BEDTIME Discontinued prednisone 20 mg tablet See Taper PO DAILY Taper: Prednisone 20 mg daily for 3 Days and 0 Hour Rx Instructions: 3 TABL X 4 DAYS, then 2 tabl x 4 days, then 1 tabl x 4 days No Action nystatin 100,000 unit/gram powder 1 appl topical TID Qty: 60 3RF albuterol sulfate 2.5 mg /3 mL (0.083 %) solution for nebulization 2.5 mg inhalation Q4-6H PRN (Reason: for wheezing) Qty: 180 0RF prednisone 20 mg tablet 40 mg PO DAILY Qty: 6 0RF benzonatate 100 mg capsule 100 mg PO TID PRN (Reason: cough) Qty: 14 0RF nicotine (polacrilex) 2 mg lozenge 2 mg buccal Q4-8H PRN (Reason: nicotine cravings) Qty: 72 0RF albuterol sulfate 90 mcg/actuation HFA aerosol inhaler 2 puff inhalation Q4H PRN (Reason: shortness of breath or wheezing) Qty: 8.5 6RF Discharge Orders: Discharge Order (Routine); Ordered 12/02/21 Ordered By: Suraj Mcclelland Diet: Advance to usual diet Activity on Discharge: As tolerated Stand Alone Forms: Patient Portal Discharge page Care Plan Goals: prevent rehospitalization and control of copd Health Concerns: copd, chronic smoking Plan of Treatment: Take presnisone as directed, stop smoking and go see your Doctor in a week, call for appointment Follow up with Dr. Logan in 2 weeks Assessment: as above Discharge Date/Time: 12/02/21 14:55
--- NOTE | 2021-12-02 11:10 | MHC.CM.PN ---
Patient has been medically cleared for discharge today. She will be discharged to Home (self-care).
[2021-12-02 11:24] VITALS: BP 101/54; PULSE 83; RESP 18; TEMP 36.7
[2021-12-02 11:29] VITALS: PULSE 106; RESP 18; O2SAT 91
[2021-12-02] MEDS: predniSONE 20 MG TABLET 40 MG PO (11:54)
== END 2021-12-02 14:55 | disposition home or self-care (01) | DRG 192 ==
LOC: HO.ED 12-01 00:47 → HO.EDOVER 12-01 01:38 → HO.IMC 12-01 14:20
PROVIDERS: Admitting Provider Hospitalist; Emergency Provider Emergency Medicine; PCP Internal Medicine; Visit Provider Internal Medicine
DX: J44.1 Chronic obstructive pulmonary disease with (acute) exacerbation (principal); I25.10 Atherosclerotic heart disease of native coronary artery without angina pectoris; G43.909 Migraine, unspecified, not intractable, without status migrainosus; F32.A Depression, unspecified; E11.42 Type 2 diabetes mellitus with diabetic polyneuropathy; I10 Essential (primary) hypertension; E78.5 Hyperlipidemia, unspecified; K75.81 Nonalcoholic steatohepatitis (NASH); F17.210 Nicotine dependence, cigarettes, uncomplicated; Z71.6 Tobacco abuse counseling; Z20.822 Contact with and (suspected) exposure to COVID-19; Z98.1 Arthrodesis status; Z88.0 Allergy status to penicillin; Z88.2 Allergy status to sulfonamides; Z88.5 Allergy status to narcotic agent; Z88.7 Allergy status to serum and vaccine; Z79.51 Long term (current) use of inhaled steroids; Z79.82 Long term (current) use of aspirin; Z79.84 Long term (current) use of oral hypoglycemic drugs; Z79.899 Other long term (current) drug therapy
CPT/HCPCS: 36415; 71045; 80048; 80053; 82947; 83880; 84484; 85025; 87635; 93005; 94640; 99285; J1650

== ENCOUNTER → 2021-12-09 10:28 | Outpatient (BNVA) | payer MEDICARE, OTHER, SELFPAY | PROVIDERS: PCP Internal Medicine; Visit Provider Internal Medicine | DX: J44.9 Chronic obstructive pulmonary disease, unspecified (principal); R91.1 Solitary pulmonary nodule; Z87.891 Personal history of nicotine dependence | CPT/HCPCS: 99212 ==

== ENCOUNTER 2022-01-03 09:43 | Outpatient (REF) | payer MEDICARE, OTHER, SELFPAY ==
[2022-01-03 11:52] LABS: Estimated Average Glucose 177 mg/dL; Hemoglobin A1c % 7.8 %
[2022-01-03 12:21] LABS: Alanine Aminotransferase 21 U/L (0-31); Albumin Level 3.9 g/dL (3.5-5.0); Alkaline Phosphatase 134 U/L (39-117); Anion Gap 18 (12-20); Aspartate Amino Transferase 32 U/L (5-31); Bilirubin Total 0.4 mg/dL (0.0-1.0); Blood Urea Nitrogen 10 mg/dL (9-16); Calcium 9.3 mg/dL (8.4-10.2); Carbon Dioxide 25 mmol/L (22-29); Chloride 104 mmol/L (96-108); Cholesterol 317 mg/dL; Estimated Glomerular Filt Rate 53; Glucose Fasting 161 mg/dL (60-99); HDL Cholesterol 35 mg/dL; Potassium 4.5 mmol/L (3.3-5.1); Sodium 142 mmol/L (135-145); Total Protein 7.2 g/dL (6.5-8.0); Triglycerides 462 mg/dL
== END 2022-01-03 09:44 | disposition home or self-care (01) ==
LOC: HO.HMGCLDS 09:43
PROVIDERS: PCP Internal Medicine; Visit Provider Internal Medicine
DX: Z13.89 Encounter for screening for other disorder (principal)
CPT/HCPCS: 36415; 80053; 80061; 83036

== ENCOUNTER 2022-01-05 22:24 | Inpatient (IN) | payer MEDICARE, OTHER, SELFPAY ==
--- NOTE | ~2022-01-05 | XR_ITS ---
EXAMINATION: XR CHEST CLINICAL INFORMATION: Shortness of breath COMPARISON: 11/30/2021 TECHNIQUE: Frontal view of the chest was obtained. FINDINGS: The lungs are clear with no focal consolidation. No evidence of pneumothorax, pulmonary edema, or pleural effusions. Cardiac size is within normal limits. Calcification is present at the aortic arch. No acute osseous findings are seen. Fusion hardware noted in the lower cervical spine. XR/XR chest 1V IMPRESSION: No acute cardiopulmonary findings.
--- NOTE | 2022-01-05 22:28 | ECG_ITS ---
Test Reason : SOB Blood Pressure : / mmHG Vent. Rate : 112 BPM Atrial Rate : 112 BPM P-R Int : 142 ms QRS Dur : 130 ms QT Int : 354 ms P-R-T Axes : 070 083 007 degrees QTc Int : 483 ms Sinus tachycardia with occasional Premature ventricular complexes Right bundle branch block Cannot rule out Inferior infarct , age undetermined Abnormal ECG When compared with ECG of 01-DEC-2021 23:22, Premature ventricular complexes are now Present Vent. rate has increased BY 38 BPM T wave inversion now evident in Inferior leads Referred By: Ana Singleton Electronically Signed By:MILKA AVITIA
--- NOTE | 2022-01-05 22:43 | ED.SOB ---
HPI - SOB/Dyspnea General Chief Complaint: Dyspnea Stated Complaint: Difficulty Breathing Time Seen by Provider: 01/05/22 22:28 Related Data Home Medications Medication Instructions Recorded Confirmed atoxiyvqhb-bniqzpydlkxje-ryoowzrt 1 tab PO Q6H PRN Pain 12/25/20 12/04/21 50 mg-325 mg-40 mg tablet multivitamin (Daily Multi-Vitamin 1 tab PO BEDTIME 12/25/20 12/04/21 tablet) meclizine 25 mg tablet 25 mg PO TID PRN Dizziness 01/02/21 12/04/21 fluticasone fur. 100 mcg-umeclid 1 inh inhalation BEDTIME 08/09/21 12/04/21 62.5 mcg-vilant 25 mcg inhalat.powder (Trelegy Ellipta) lisinopril 2.5 mg tablet 2.5 mg PO BEDTIME 08/09/21 12/04/21 bupropion HCl 150 mg tablet,12 hr 150 mg PO BEDTIME 08/30/21 12/04/21 sustained-release aspirin 81 mg chewable tablet 1 tab PO BEDTIME 09/11/21 12/04/21 atorvastatin 80 mg tablet 80 mg PO BEDTIME 09/11/21 12/04/21 cholecalciferol (vitamin D3) 25 25 mcg PO BEDTIME 09/11/21 12/04/21 mcg (1,000 unit) tablet cyanocobalamin (vitamin B-12) 2 tab PO BEDTIME 09/11/21 12/04/21 1,000 mcg tablet lidocaine 5 % topical patch 1 patch topical DAILY PRN Pain 09/11/21 12/04/21 nitroglycerin 0.4 mg sublingual 1 tab sublingual NEEDED angina 09/11/21 12/04/21 tablet isosorbide mononitrate 30 mg 30 mg PO DAILY 09/25/21 12/04/21 tablet,extended release 24 hr zolpidem 5 mg tablet 5 mg PO BEDTIME PRN Insomnia 11/06/21 12/04/21 ascorbic acid (vitamin C) 500 mg 500 mg PO DAILY 11/14/21 12/04/21 tablet gabapentin 100 mg capsule 300 mg PO BID 11/14/21 12/04/21 amlodipine 5 mg tablet 5 mg PO DAILY 11/20/21 12/04/21 lancets 33 gauge (TRUEplus Lancets) #100 ea 11/20/21 12/04/21 Previous Rx's Medication Instructions Recorded topiramate 100 mg tablet 100 mg PO BID #180 tabs 01/08/21 acetaminophen 325 mg tablet 325 mg PO Q6H PRN pain #90 tabs 08/01/21 (Tylenol) lancets 28 gauge (FreeStyle #100 ea 08/07/21 Lancets) ursodiol 500 mg tablet 500 mg PO BID #90 tabs 08/21/21 blood sugar diagnostic (FreeStyle #100 ea 09/16/21 Lite Strips) metformin 750 mg tablet,extended 750 mg PO DAILY #90 tabs 09/25/21 release 24 hr cetirizine 10 mg tablet (Zyrtec) 10 mg PO DAILY #30 tabs 11/06/21 albuterol sulfate 90 mcg/actuation 2 puff inhalation Q4H PRN 12/04/21 aerosol inhaler shortness of breath or wheezing #8.5 grams albuterol sulfate 2.5 mg/3 mL 2.5 mg (3 mL) inhalation Q4-6H PRN 12/23/21 (0.083 %) solution for nebulization shortness of breath or wheezing #180 mL Allergies Allergy/AdvReac Type Severity Reaction Status Date / Time amoxicillin [AMOXICILLIN] Allergy Mild DIARRHEA Verified 12/09/21 11:08 Darvocet A500 Allergy Unknown upset Verified 12/09/21 11:08 stomach melatonin Allergy Unknown Nausea and Verified 12/09/21 11:08 Vomiting oxycodone [From PERCOCET] Allergy Unknown NAUSEA,VOMI Verified 12/09/21 11:08 TING Propoxyphene HCl Allergy Unknown upset Verified 12/09/21 11:08 stomach influenza virus vaccine, AdvReac Intermediate NAUSEA,DIAR Verified 12/09/21 11:08 specific WU [FLU VACCINE] lactose [LACTOSE] AdvReac Intermediate GI UPSET Verified 12/09/21 11:08 metronidazole [From FLAGYL] AdvReac Intermediate NAUSEA & Verified 12/09/21 11:08 VOMITING Sulfa (Sulfonamide AdvReac Intermediate EYE DROPS Verified 12/09/21 11:08 Antibiotics) (ONLY)-IRITIS PMFSH Past Medical History Medical History (Updated 01/06/22 @ 01:36 by Ana Singleton NP) Anxiety CAD (coronary artery disease) Cervical stenosis of spine COPD (chronic obstructive pulmonary disease) COPD (chronic obstructive pulmonary disease) Depression Diabetic polyneuropathy associated with type 2 diabetes mellitus DM type 2 (diabetes mellitus, type 2) Elevated BUN History of smoking at least 1 pack per day for at least 30 years HTN (hypertension) Hyperlipidemia Left leg swelling Low vitamin D level Migraine headache Neck pain Nonalcoholic steatohepatitis (CHRISTINE) Pulmonary nodule Smoker Smoker Vertigo Vitamin B 12 deficiency Vitamin B12 deficiency Surgical History Fusion of spine of cervical region History of carpal tunnel release History of hysterectomy Family History Family History Mother CVD (cardiovascular disease) CVA (cerebral vascular accident) Father CVD (cardiovascular disease) Social History Social History Household Members: Other Household Members Other:: roommate Housing: House Do you presently have visiting nurse or other home services: No Alcohol intake: never Patient Tobacco Use Status: Former Tobacco user Tobacco use type: Cigarette Cigarettes Per Day: 6 Years Smoked: 62 Smoked in Last 30 Days: No e-Cigarette/Vaping Use: Never Used Use of substances other than those prescribed or required for medical reasons: No Advance Directives: Yes Advance Directives on File: Yes Advance Directives Date on File: 11/14/21 service: No Current occupational status: retired Current occupation: Right Handed Cognitive needs: No Hearing needs: No Vision needs: Yes Physical Exam Vital Signs: Vital Signs: Last Vital Signs Temp 98.4 F 01/05/22 23:00 Pulse 123 H 01/06/22 00:11 Resp 31 H 01/06/22 00:11 BP 134/63 01/06/22 00:11 Pulse Ox 95 01/06/22 00:11 O2 Del Method 01/05/22 23:00 O2 Flow Rate 2 01/05/22 22:55 Oxygen Flow Rate 2 01/05/22 23:00 BMI result Body Mass Index 27.1 Course Course Course Narrative: 71-year-old female presents via EMS for respiratory distress, COPD exacerbation. Patient is unable to speak in complete sentences, order for albuterol 10 mL, Solu-Medrol, labs, chest x-ray and EKG. 23:30 elevated white count 13.9 however patient does take prednisone on regular basis, has had prior values consistent the past several years, while she does have COPD exacerbation, do not feel that she is septic or has infectious etiology. Chest x-ray is negative for acute findings. Will treat with ceftriaxone, order for 2nd 10 mL albuterol treatment at this time. 00:30 patient able to speak in complete sentences, states to feel terrible. Lungs feel tight, nebs continue 01:26 VBG is indicate respiratory acidosis. Order for BiPAP for approximately 2 hours and then removal with repeat VBG. Patient admitted to hospitalist for COPD exacerbation. Consultations Consultation #1: Rob Time: 01:32 MDM - SOB/Dyspnea Differential Diagnosis Differential diagnosis: Likely acute exacerbation of chronic obstructive airways disease and asthma with exacerbation Medical Records Attestation: I reviewed the patient's medical records. Lab Data Attestation: I reviewed the patient's lab results. Result diagrams: 01/05/22 22:47 01/05/22 22:47 Labs: Lab Results 01/05/22 01/05/22 01/05/22 Range/Units 22:46 22:46 22:46 WBC (4.8-10.8) X10*3/uL RBC (4.20-5.50) X10*6/uL Hgb (12.0-16.0) g/dl Hct (37.0-47.0) % MCV (80.0-98.0) fL MCH (27.0-33.0) pg MCHC (31.0-35.0) g/dl RDW (11.0-16.0) % Plt Count (160-400) X10*3/uL MPV (9.4-12.3) fL Immature Gran % (Auto) (0.0-0.4) % Neut % (Auto) (45-73) % Lymph % (Auto) (20-40) % [place] % (Auto) (2-11) % Eos % (Auto) (0-4) % Baso % (Auto) (0-2) % Lymph # (Auto) (1.2-4.9) X10*3/uL [place] # (Auto) (0.1-1.2) X10*3/uL Eos # (Auto) (0.0-0.4) X10*3/uL Baso # (Auto) (0.0-0.2) X10*3/uL Abs Immat Gran (auto) (0.00-0.03) X10*3/uL Absolute Neuts (auto) (2.0-8.3) x10*3/uL Absolute Nucleated RBC (0.0-0.012) X10*3/uL Nucleated RBC % (auto) (0.0-0.2) /100WBC VBG pH (7.32-7.43) VBG pCO2 mmHg VBG pO2 mmHg VBG HCO3 (22-26) mmol/L VBG O2 Saturation % VBG Base Excess mmol/L Sodium (135-145) mmol/L Potassium (3.3-5.1) mmol/L Chloride (96-108) mmol/L Carbon Dioxide (22-29) mmol/L Anion Gap (12-20) BUN (9-16) mg/dL Creatinine (0.5-1.4) mg/dL Estim Creat Clear Calc Estimated GFR Random Glucose (60-115) mg/dL Lactic Acid 1.8 (0.5-2.0) mmol/L Calcium (8.4-10.2) mg/dL Magnesium (1.6-2.6) mg/dL Total Bilirubin (0.0-1.0) mg/dL Direct Bilirubin (0.0-0.5) mg/dL AST (5-31) U/L ALT (0-31) U/L Alkaline Phosphatase (39-117) U/L Troponin I High Sens 6.9 D (<3.5-17.0) ng/L Total Protein (6.5-8.0) g/dL Albumin (3.5-5.0) g/dL Lipase (8-78) U/L COVID-19 (JENNIFER) Negative (Negative) COVID-19 Clin Com See Note 01/05/22 01/05/22 01/06/22 Range/Units 22:47 22:47 00:51 WBC 13.9 H (4.8-10.8) X10*3/uL RBC 4.91 (4.20-5.50) X10*6/uL Hgb 12.1 (12.0-16.0) g/dl Hct 40.1 (37.0-47.0) % MCV 81.7 (80.0-98.0) fL MCH 24.6 L (27.0-33.0) pg MCHC 30.2 L (31.0-35.0) g/dl RDW 16.3 H (11.0-16.0) % Plt Count 305 D (160-400) X10*3/uL MPV 11.0 (9.4-12.3) fL Immature Gran % (Auto) 1.0 H (0.0-0.4) % Neut % (Auto) 56.7 (45-73) % Lymph % (Auto) 32.0 (20-40) % [place] % (Auto) 6.8 (2-11) % Eos % (Auto) 2.9 (0-4) % Baso % (Auto) 0.6 (0-2) % Lymph # (Auto) 4.5 (1.2-4.9) X10*3/uL [place] # (Auto) 1.0 (0.1-1.2) X10*3/uL Eos # (Auto) 0.4 (0.0-0.4) X10*3/uL Baso # (Auto) 0.1 (0.0-0.2) X10*3/uL Abs Immat Gran (auto) 0.14 H (0.00-0.03) X10*3/uL Absolute Neuts (auto) 7.9 (2.0-8.3) x10*3/uL Absolute Nucleated RBC 0.000 (0.0-0.012) X10*3/uL Nucleated RBC % (auto) 0.0 (0.0-0.2) /100WBC VBG pH 7.31 L (7.32-7.43) VBG pCO2 52 mmHg VBG pO2 40 mmHg VBG HCO3 26 (22-26) mmol/L VBG O2 Saturation 56.0 % VBG Base Excess -0.1 mmol/L Sodium 139 (135-145) mmol/L Potassium 4.1 (3.3-5.1) mmol/L Chloride 103 (96-108) mmol/L Carbon Dioxide 26 (22-29) mmol/L Anion Gap 14 (12-20) BUN 10 (9-16) mg/dL Creatinine 0.91 (0.5-1.4) mg/dL Estim Creat Clear Calc 47.6 Estimated GFR > 60 Random Glucose 179 H (60-115) mg/dL Lactic Acid (0.5-2.0) mmol/L Calcium 9.5 (8.4-10.2) mg/dL Magnesium 1.9 (1.6-2.6) mg/dL Total Bilirubin 0.3 (0.0-1.0) mg/dL Direct Bilirubin < 0.2 (0.0-0.5) mg/dL AST 26 (5-31) U/L ALT 18 (0-31) U/L Alkaline Phosphatase 140 H (39-117) U/L Troponin I High Sens (<3.5-17.0) ng/L Total Protein 7.5 (6.5-8.0) g/dL Albumin 4.0 (3.5-5.0) g/dL Lipase 40 (8-78) U/L COVID-19 (JENNIFER) (Negative) COVID-19 Clin Com Imaging Data Chest x-ray: Attestation: I personally reviewed and interpreted this imaging study as follows: Radiologist's impression: EXAMINATION: XR CHEST CLINICAL INFORMATION: Shortness of breath COMPARISON: 11/30/2021 TECHNIQUE: Frontal view of the chest was obtained. FINDINGS: The lungs are clear with no focal consolidation. No evidence of pneumothorax, pulmonary edema, or pleural effusions. Cardiac size is within normal limits. Calcification is present at the aortic arch. No acute osseous findings are seen. Fusion hardware noted in the lower cervical spine. XR/XR chest 1V IMPRESSION: No acute cardiopulmonary findings. ECG Data Attestation: I personally reviewed and interpreted this ECG as follows: ECG interpretation date: 01/05/22 ECG interpretation time: 22:33 Prior ECG tracings: available for review Interpretation: Vent. rate 112 BPM SD interval 142 ms QRS duration 130 ms QT/QTc 354/483 ms P-R-T axes 70 83 7 Sinus tachycardia with occasional Premature ventricular complexes Right bundle branch block Cannot rule out Inferior infarct , age undetermined Abnormal ECG When compared with ECG of 01-DEC-2021 23:22, Premature ventricular complexes are now Present Vent. rate has increased BY 38 BPM T wave inversion now evident in Inferior leads Discharge Plan Discharge Clinical Impression: Acute exacerbation of chronic obstructive airways disease Patient Disposition: Admitted As Inpatient Prescriptions: No Action topiramate 100 mg tablet 100 mg PO BID Qty: 180 3RF acetaminophen [Tylenol] 325 mg tablet 325 mg PO Q6H PRN (Reason: pain) Qty: 90 3RF (DME) lancets [FreeStyle Lancets] 28 gauge misc See Rx Instructions .Route Qty: 100 3RF Rx Instructions: test blood sugar once a day ursodiol 500 mg tablet 500 mg PO BID Qty: 90 2RF (DME) FreeStyle Lite Strips Strip See Rx Instructions .Route Qty: 100 3RF Rx Instructions: test once a day albuterol sulfate 2.5 mg /3 mL (0.083 %) solution for nebulization 2.5 mg inhalation Q4-6H PRN (Reason: shortness of breath or wheezing) Qty: 180 0RF nitroglycerin 0.4 mg tablet, sublingual 1 tab sublingual NEEDED atorvastatin 80 mg tablet 80 mg PO BEDTIME cyanocobalamin (vitamin B-12) 1,000 mcg tablet 2 tab PO BEDTIME lidocaine 5 % adhesive patch,medicated 1 patch topical DAILY PRN (Reason: Pain) Rx Instructions: leave on most painful area for up to 12 hrs aspirin 81 mg tablet,chewable 1 tab PO BEDTIME cholecalciferol (vitamin D3) 25 mcg (1,000 unit) tablet 25 mcg PO BEDTIME gabapentin 100 mg capsule 300 mg PO BID ascorbic acid (vitamin C) 500 mg Tablet 500 mg PO DAILY isosorbide mononitrate 30 mg tablet extended release 24 hr 30 mg PO DAILY metformin 750 mg tablet extended release 24 hr 750 mg PO DAILY Qty: 90 2RF amlodipine 5 mg tablet 5 mg PO DAILY (DME) lancets [TRUEplus Lancets] 33 gauge misc See Rx Instructions .ROUTE DAILY Qty: 100 Rx Instructions: As directed albuterol sulfate 90 mcg/actuation HFA aerosol inhaler 2 puff inhalation Q4H PRN (Reason: shortness of breath or wheezing) Qty: 8.5 6RF zolpidem 5 mg tablet 5 mg PO BEDTIME PRN (Reason: Insomnia) cetirizine [Zyrtec] 10 mg tablet 10 mg PO DAILY Qty: 30 6RF meclizine 25 mg tablet 25 mg PO TID PRN (Reason: Dizziness) multivitamin [Daily Multi-Vitamin] Tablet 1 tab PO BEDTIME kiagyqcjpi-qrccmoylponte-zhvd 50-325-40 mg tablet 1 tab PO Q6H PRN (Reason: Pain) bupropion HCl 150 mg tablet sustained-release 12 hr 150 mg PO BEDTIME lisinopril 2.5 mg tablet 2.5 mg PO BEDTIME Trelegy Ellipta 100-62.5-25 mcg blister with device 1 inh inhalation BEDTIME
[2022-01-05 22:52] LABS: MANUAL DIFF FLAG NO
[2022-01-05 22:54] LABS: Basophils Absolute Auto 0.1 X10*3/uL (0.0-0.2); Basophils Percent Auto 0.6 % (0-2); Eosinophils Absolute Auto 0.4 X10*3/uL (0.0-0.4); Eosinophils Percent Auto 2.9 % (0-4); Hematocrit 40.1 % (37.0-47.0); Hemoglobin 12.1 g/dl (12.0-16.0); Imm Gran Abs Auto 0.14 X10*3/uL (0.00-0.03); Lymphocytes Absolute Auto 4.5 X10*3/uL (1.2-4.9); Mean Corpuscular HGB Conc 30.2 g/dl (31.0-35.0); Mean Corpuscular Hemoglobin 24.6 pg (27.0-33.0); Mean Corpuscular Volume 81.7 fL (80.0-98.0); Monocytes Percent Auto 6.8 % (2-11); Neutrophils Absolute Auto 7.9 x10*3/uL (2.0-8.3); Neutrophils Percent Auto 56.7 % (45-73); Platelet Count 305 X10*3/uL (160-400); Red Blood Count 4.91 X10*6/uL (4.20-5.50); Red Cell Distribution Width 16.3 % (11.0-16.0); White Blood Count 13.9 X10*3/uL (4.8-10.8)
[2022-01-05 22:55] VITALS: BP 145/51; PULSE 113; RESP 32; TEMP 36.9; O2SAT 95
[2022-01-05] MEDS: Albuterol Sulfate (0.083%) 2.5 MG/3 ML VIAL.NEB 10 MG INHALE (22:59)
[2022-01-05] MEDS: methylPREDNISolone Sod Succ 125 MG/2 ML VIAL IVPUSH (22:59)
[2022-01-05 23:00] VITALS: BP 145/51; BP 190/82; PULSE 104; PULSE 130; PULSE 88; RESP 18; RESP 32; TEMP 36.9; O2SAT 95; O2SAT 97; BMI 27.1
[2022-01-05 23:05] LABS: Lactic Acid 1.8 mmol/L (0.5-2.0)
[2022-01-05 23:11] LABS: Alanine Aminotransferase 18 U/L (0-31); Alkaline Phosphatase 140 U/L (39-117); Anion Gap 14 (12-20); Aspartate Amino Transferase 26 U/L (5-31); Bilirubin Direct < 0.2 mg/dL (0.0-0.5); Bilirubin Total 0.3 mg/dL (0.0-1.0); Blood Urea Nitrogen 10 mg/dL (9-16); Calcium 9.5 mg/dL (8.4-10.2); Carbon Dioxide 26 mmol/L (22-29); Chloride 103 mmol/L (96-108); Creatinine Clr Calc Pharmacy 47.6; Estimated Glomerular Filt Rate > 60; Glucose Random 179 mg/dL (60-115); Lipase 40 U/L (8-78); Magnesium 1.9 mg/dL (1.6-2.6); Potassium 4.1 mmol/L (3.3-5.1); Sodium 139 mmol/L (135-145); Total Protein 7.5 g/dL (6.5-8.0)
[2022-01-05 23:16] LABS: Troponin-I High Sensitivity 6.9 ng/L (<3.5-17.0)
[2022-01-05 23:18] LABS: COVID-19 Test Negative (Negative)
[2022-01-06] VITALS (13 sets, daily range): BP systolic 90–134; BP diastolic 38–73; PULSE 90–123; RESP 14–31; TEMP 37.2; O2SAT 94–98; BMI 27.8
[2022-01-06] MEDS: Albuterol Sulfate (0.083%) 2.5 MG/3 ML VIAL.NEB 10 MG INHALE (00:01)
[2022-01-06 00:56] LABS: VBG Base Excess -0.1 mmol/L; VBG HCO3 26 mmol/L (22-26); VBG pCO2 52 mmHg; VBG pH 7.31 (7.32-7.43); VBG pO2 40 mmHg
[2022-01-06 00:57] LABS: Venous Blood Gas Refer to POC result
[2022-01-06] MEDS: cefTRIAXone sodium 1 GM in 0.9 % Sodium Chloride 50 ML IV (00:58)
[2022-01-06] MEDS: diazePAM 10 MG/2 ML CARTRIDGE 2.5 MG IVPUSH (01:45)
--- NOTE | 2022-01-06 02:39 | PC.NURSE ---
Unable to assess pain at this time. Allowing pt to sleep.
[2022-01-06 03:17] LABS: Venous Blood Gas Refer to POC result
[2022-01-06 03:18] LABS: VBG Base Excess -4.6 mmol/L; VBG HCO3 20 mmol/L (22-26); VBG pCO2 38 mmHg; VBG pH 7.33 (7.32-7.43); VBG pO2 66 mmHg
--- NOTE | 2022-01-06 04:25 | PC.NURSE ---
Pt. requesting to come off of BiPap d/t feelings of claustrophobia/panic from face mask. BiPap removed and put pt. back on 2L via NC for comfort. Tolerating well.
--- NOTE | 2022-01-06 05:48 | P.HPHOSP_ITS ---
History of Present Illness Date of Service: 01/06/22 Chief Complaint: SOB 71-year-old female with past medical history of COPD, anxiety, CAD, CHF, diabetes, HLD, migraine headaches, presents to the hospital with complaints of shortness of breath, cough, sputum production. Symptoms started earlier on the day of presentation, she denies any fever no chills, no chest pain, no abdominal pain, nausea or vomiting, no palpitations. No lower extremity edema, no orthopnea or PND . No urinary symptoms . Patient reports a migraine headache at this time. On arrival to the ED patient found to have a heart rate of 113, respiratory rate of 32 , Patient was found to be 7.31 with a pH of 52. Patient was placed on BiPAP for few hours with improvement in her VBG labs are significant for WBC count 13.9 which is chronically high, labs otherwise unremarkable X-ray of the chest shows no acute cardiopulmonary findings Review of Systems Review of Systems: Yes all other systems are reviewed and are negative [facility] Medical History Anxiety CAD (coronary artery disease) Cervical stenosis of spine COPD (chronic obstructive pulmonary disease) COPD (chronic obstructive pulmonary disease) Depression Diabetic polyneuropathy associated with type 2 diabetes mellitus DM type 2 (diabetes mellitus, type 2) Elevated BUN History of smoking at least 1 pack per day for at least 30 years HTN (hypertension) Hyperlipidemia Left leg swelling Low vitamin D level Migraine headache Neck pain Nonalcoholic steatohepatitis (CHRISTINE) Pulmonary nodule Smoker Smoker Vertigo Vitamin B 12 deficiency Vitamin B12 deficiency Family History Mother CVD (cardiovascular disease) CVA (cerebral vascular accident) Father CVD (cardiovascular disease) Surgical History Fusion of spine of cervical region History of carpal tunnel release History of hysterectomy Social History Household Members: Other Household Members Other:: roommate Housing: House Do you presently have visiting nurse or other home services: No Alcohol intake: never Patient Tobacco Use Status: Former Tobacco user Tobacco use type: Cigarette Cigarettes Per Day: 6 Years Smoked: 62 Smoked in Last 30 Days: No e-Cigarette/Vaping Use: Never Used Use of substances other than those prescribed or required for medical reasons: No Advance Directives: Yes Advance Directives on File: Yes Advance Directives Date on File: 11/14/21 service: No Current occupational status: retired Current occupation: Right Handed Cognitive needs: No Hearing needs: No Vision needs: Yes Meds Allergies Allergy/AdvReac Type Severity Reaction Status Date / Time amoxicillin [AMOXICILLIN] Allergy Mild DIARRHEA Verified 12/09/21 11:08 Darvocet A500 Allergy Unknown upset Verified 12/09/21 11:08 stomach melatonin Allergy Unknown Nausea and Verified 12/09/21 11:08 Vomiting oxycodone [From PERCOCET] Allergy Unknown NAUSEA,VOMI Verified 12/09/21 11:08 TING Propoxyphene HCl Allergy Unknown upset Verified 12/09/21 11:08 stomach influenza virus vaccine, AdvReac Intermediate NAUSEA,DIAR Verified 12/09/21 11:08 specific WU [FLU VACCINE] lactose [LACTOSE] AdvReac Intermediate GI UPSET Verified 12/09/21 11:08 metronidazole [From FLAGYL] AdvReac Intermediate NAUSEA & Verified 12/09/21 11:08 VOMITING Sulfa (Sulfonamide AdvReac Intermediate EYE DROPS Verified 12/09/21 11:08 Antibiotics) (ONLY)-IRITIS Active Medications: Current Medications Acetaminophen (Acetaminophen 325 Mg Tablet) 650 mg PO Q6H PRN PRN Reason: Pain, Mild (Pain Scale 1-3) Albuterol/Ipratropium (Albuterol/Iprat 2.5/0.5mg 3 Ml Ampul.Neb) 3 ml INHALE RQ4H PRN PRN Reason: Shortness of Breath/Wheezing Albuterol/Ipratropium (Albuterol/Iprat 2.5/0.5mg 3 Ml Ampul.Neb) 3 ml INHALE RQ4H WHILE AWAKE ALEXANDRE Methylprednisolone Sodium Succinate (Methylprednisolone Sod Succ 40 Mg/Ml Vial) 40 mg IVPUSH Q12H ALEXANDRE Ondansetron HCl (Ondansetron Hcl 4 Mg/2 Ml Vial) 4 mg IVPUSH Q8H PRN PRN Reason: Nausea and Vomiting Pharmacy Consult (Consult Rx Perform Med Rec) 1 each MISCELLANE ONCE STA Stop: 01/05/22 23:43 Sodium Chloride (0.9 % Sodium Chloride Flush 3 Ml Syringe) 3 ml IVFLUSH QSHIFT ALEXANDRE Home Medications Medication Instructions Recorded Confirmed Last Taken Type ngovgrtjny-sbwltluvbnfjp-jmqtwsoh 1 tab PO Q6H PRN Pain 12/25/20 12/04/21 Unknown History 50 mg-325 mg-40 mg tablet multivitamin (Daily Multi-Vitamin 1 tab PO BEDTIME 12/25/20 01/06/22 09/09/21 History tablet) meclizine 25 mg tablet 25 mg PO TID PRN Dizziness 01/02/21 12/04/21 11/13/21 History fluticasone fur. 100 mcg-umeclid 1 inh inhalation BEDTIME 08/09/21 12/04/21 11/13/21 History 62.5 mcg-vilant 25 mcg inhalat.powder (Trelegy Ellipta) lisinopril 2.5 mg tablet 2.5 mg PO BEDTIME 08/09/21 12/04/21 11/13/21 History bupropion HCl 150 mg tablet,12 hr 150 mg PO BEDTIME 08/30/21 12/04/21 11/13/21 History sustained-release aspirin 81 mg chewable tablet 1 tab PO BEDTIME 09/11/21 01/06/22 11/13/21 History atorvastatin 80 mg tablet 80 mg PO BEDTIME 09/11/21 01/06/22 11/13/21 History cholecalciferol (vitamin D3) 25 25 mcg PO BEDTIME 09/11/21 12/04/21 Unknown History mcg (1,000 unit) tablet cyanocobalamin (vitamin B-12) 2 tab PO BEDTIME 09/11/21 12/04/21 09/09/21 History 1,000 mcg tablet lidocaine 5 % topical patch 1 patch topical DAILY PRN Pain 09/11/21 12/04/21 11/13/21 History nitroglycerin 0.4 mg sublingual 1 tab sublingual NEEDED angina 09/11/21 01/06/22 Unknown History tablet isosorbide mononitrate 30 mg 30 mg PO DAILY 09/25/21 12/04/21 11/13/21 History tablet,extended release 24 hr zolpidem 5 mg tablet 5 mg PO BEDTIME PRN Insomnia 11/06/21 01/06/22 11/13/21 History gabapentin 100 mg capsule 300 mg PO BID 11/14/21 12/04/21 11/13/21 History amlodipine 5 mg tablet 5 mg PO DAILY 11/20/21 01/06/22 Unknown History lancets 33 gauge (TRUEplus Lancets) #100 ea 11/20/21 12/04/21 Unknown History Physical Exam Vital Signs and Narrative: Vital Signs: Last Vital Signs Temp 98.4 F 01/05/22 23:00 Pulse 108 H 01/06/22 04:23 Resp 21 H 01/06/22 04:23 BP 103/49 L 01/06/22 04:23 Pulse Ox 94 01/06/22 04:23 O2 Del Method 01/06/22 04:23 O2 Flow Rate 2 01/05/22 22:55 Oxygen Flow Rate 2 01/05/22 23:00 BMI result Body Mass Index 27.1 Const: General: cooperative and no acute distress Orientation/consciousness: patient oriented x3 Eyes: General: appearance normal, both eyes and all related structures Resp: Other: tachypneic, audible wheezing Effort & Inspection: normal respiratory effort Cardio: Rate: regular rate Rhythm: regular rhythm GI: Palpation (GI): Soft to palpation Auscultation: normal bowel sounds Skin: General skin exam: no rashes or lesions noted Neuro: General: patient oriented x3 Cognition (Neuro): normal cognition Extrem: General: Yes normal to inspection and Yes no pedal edema Results Labs CBC and Chem 7: 01/05/22 22:47 01/05/22 22:47 Labs: Laboratory Results - last 24 hr 01/05/22 01/05/22 01/05/22 22:46 22:46 22:47 MCV 81.7 MCH 24.6 L MCHC 30.2 L RDW 16.3 H Plt Count 305 D MPV 11.0 Immature Gran % (Auto) 1.0 H Neut % (Auto) 56.7 Lymph % (Auto) 32.0 [place] % (Auto) 6.8 Eos % (Auto) 2.9 Baso % (Auto) 0.6 Lymph # (Auto) 4.5 [place] # (Auto) 1.0 Eos # (Auto) 0.4 Baso # (Auto) 0.1 Abs Immat Gran (auto) 0.14 H Absolute Neuts (auto) 7.9 Absolute Nucleated RBC 0.000 Nucleated RBC % (auto) 0.0 VBG pH VBG pCO2 VBG pO2 VBG HCO3 VBG O2 Saturation VBG Base Excess Anion Gap Estim Creat Clear Calc Estimated GFR Random Glucose Lactic Acid 1.8 Calcium Magnesium Total Bilirubin Direct Bilirubin AST ALT Alkaline Phosphatase Total Protein Albumin Lipase COVID-19 (JENNIFER) Negative COVID-19 Clin Com See Note 01/05/22 01/06/22 01/06/22 22:47 00:51 03:13 MCV MCH MCHC RDW Plt Count MPV Immature Gran % (Auto) Neut % (Auto) Lymph % (Auto) [place] % (Auto) Eos % (Auto) Baso % (Auto) Lymph # (Auto) [place] # (Auto) Eos # (Auto) Baso # (Auto) Abs Immat Gran (auto) Absolute Neuts (auto) Absolute Nucleated RBC Nucleated RBC % (auto) VBG pH 7.31 L 7.33 VBG pCO2 52 38 VBG pO2 40 66 VBG HCO3 26 20 L VBG O2 Saturation 56.0 90.0 VBG Base Excess -0.1 -4.6 Anion Gap 14 Estim Creat Clear Calc 47.6 Estimated GFR > 60 Random Glucose 179 H Lactic Acid Calcium 9.5 Magnesium 1.9 Total Bilirubin 0.3 Direct Bilirubin < 0.2 AST 26 ALT 18 Alkaline Phosphatase 140 H Total Protein 7.5 Albumin 4.0 Lipase 40 COVID-19 (JENNIFER) COVID-19 Clin Com Imaging Radiologist's Impressions: Impressions Chest X-Ray 01/05/22 23:12 IMPRESSION: No acute cardiopulmonary findings. Assessment and Plan (1) Acute exacerbation of chronic obstructive airways disease: Status: Acute (2) Dyspnea: Status: Acute Plan 71-year-old female with past medical history of migraines, anxiety, COPD, HTN, HLD, CAD presents to the hospital with shortness of breath found to have COPD exacerbation # acute dyspnea - likely secondary to COPD exacerbation - no evidence of pneumonia on chest x-ray, no evidence of volume overload clinically and on chest x-ray - PE less likely - at this time will start Solu-Medrol, DuoNeb p.r.n. as well as scheduled - will obtain BNP just to be sure - follow respiratory status # acute COPD exacerbation - history of heavy smoking about 2 packs per day currently smokes 4 cigarettes daily - has audible wheezing, diminished breath sounds - will treat with Solu-Medrol, DuoNeb - monitor respiratory status # migraine headache - continue home treatment # hypertension - stable - continue home antihypertensives # CAD - no chest pain DVT prophylaxis: Lovenox given the acute COPD exacerbation patient will require minimum 2 night hospital stay for management Quality Stroke Does the patient have a stroke diagnosis?: No VTE Prior VTE?: No VTE Risk Level:: Medical - moderate - high VTE Device Contraindication: Treatment Not Indicated VTE Drug Contraindication: N/A - Med Ordered
[2022-01-06 06:07] LABS: MANUAL DIFF FLAG NO
[2022-01-06 06:20] LABS: Basophils Absolute Auto 0.1 X10*3/uL (0.0-0.2); Basophils Percent Auto 0.4 % (0-2); Eosinophils Percent Auto 0.1 % (0-4); Hematocrit 35.1 % (37.0-47.0); Hemoglobin 10.5 g/dl (12.0-16.0); Imm Gran Abs Auto 0.29 X10*3/uL (0.00-0.03); Imm Gran Pct Auto 2.1 % (0.0-0.4); Lymphocytes Percent Auto 7.5 % (20-40); Mean Corpuscular HGB Conc 29.9 g/dl (31.0-35.0); Mean Corpuscular Hemoglobin 24.5 pg (27.0-33.0); Mean Platelet Volume 11.1 fL (9.4-12.3); Monocytes Absolute Auto 0.1 X10*3/uL (0.1-1.2); Neutrophils Absolute Auto 12.2 x10*3/uL (2.0-8.3); Neutrophils Percent Auto 88.9 % (45-73); Platelet Count 232 X10*3/uL (160-400); Red Blood Count 4.28 X10*6/uL (4.20-5.50); Red Cell Distribution Width 16.2 % (11.0-16.0); White Blood Count 13.7 X10*3/uL (4.8-10.8)
[2022-01-06 06:43] LABS: B Type Natriuretic Peptide 62 pg/mL (<100)
[2022-01-06 06:51] LABS: Anion Gap 23 (12-20); Blood Urea Nitrogen 15 mg/dL (9-16); Calcium 9.2 mg/dL (8.4-10.2); Carbon Dioxide 17 mmol/L (22-29); Chloride 103 mmol/L (96-108); Creatinine Clr Calc Pharmacy 36.1; Estimated Glomerular Filt Rate 44; Glucose Random 326 mg/dL (60-115); Potassium 4.6 mmol/L (3.3-5.1); Sodium 138 mmol/L (135-145)
[2022-01-06 07:23] LABS: Glucose, Whole Blood 266 mg/dL (60-115)
[2022-01-06] MEDS: Insulin Lispro 100 UNIT/ML 3 ML VIAL SUBCUT ×4 (07:23→21:04)
[2022-01-06] MEDS: 0.9 % Sodium Chloride Flush 3 ML SYRINGE IVFLUSH ×3 (07:23→22:30)
--- NOTE | 2022-01-06 07:37 | PHA.MEDREC ---
Pharmacy Consult ? Medication Reconciliation Pharmacy has reviewed the medication reconciliation completed by Sindhu. Patient historically does not know the name of the medications she takes. Nothing changed per claim history since last visit. Colleen Boo, PharmD
[2022-01-06] MEDS: Albuterol/Iprat 2.5/0.5MG 3 ML AMPUL.NEB INHALE ×2 (07:56→15:32)
[2022-01-06] MEDS: amLODIPine Besylate 5 MG TABLET PO (08:06)
[2022-01-06] MEDS: Topiramate 100 MG TABLET PO ×2 (08:06→21:04)
[2022-01-06] MEDS: UrsodioL 300 MG CAPSULE 600 MG PO ×2 (08:06→21:04)
--- NOTE | 2022-01-06 08:08 | PC.NURSE ---
Pt awake and calm this am. Pt requesting that we get in touch with her PCP cancel her appt today. This nurse called pts PCP. Awaiting bed assignment at this time.
[2022-01-06 09:58] LABS: Appearance Urine Cloudy; Color Urine Yellow; Glucose Urine UA 100 mg/dL (Negative); Leukocyte Esterase Urine Trace (Negative); Nitrite Urine Negative (Negative); PH 5.5 (5.0-8.0); Specific Gravity - Urine 1.015 (1.005-1.025); Urine Blood Negative (Negative); Urine Ketones Trace mg/dL (Negative); Urine Protein Negative (Neg-Trace)
[2022-01-06 10:10] LABS: Bacteria Urine None Seen (None Seen); RBC Urine 0-2 /HPF (0-2); Squamous Epithelial Cell Urine 0-2 /HPF (0-2); WBC Urine 0-5 /HPF (0-5)
[2022-01-06] MEDS: methylPREDNISolone Sod Succ 40 MG/ML VIAL IVPUSH ×2 (10:36→22:28)
--- NOTE | 2022-01-06 10:40 | PC.NURSE ---
Pt resting comfortably on stretcher at this time in no apparent distress. Respirations even and unlabored. No audible wheezing. Pt states no difficulty breathing. Currently on 2L nasal cannula, satting at 96%. Pt on awake overnight monitor, normal sinus with HR of 106, baseline of 100-110 over the course of her stay. No pain reported. Pt requested morning snacks, provided with cheese stick and decaf coffee.
--- NOTE | 2022-01-06 12:11 | MHC.CM.PN ---
IMM ADDRESSED, WHITE COPY TO PATIENT/YELLOW TO CHART PATIENT REPORTS SHE LIVES WITH ROOMMATES SHE IS INDEPENDENT AT HOME AND COMMUNITY HAS NEBLUZER AND RESCUE INHALERS/DENIES RECEIVING HOME SERVICES [facility] X2 PCP: JORDAN CARRILLO HCP ON FILE IF DIL ISN'T AVAILABLE FOR TRANSPORT WILL NEED [facility] [place] D[place]: HOME SELF-CARE
[2022-01-06 12:54] LABS: Glucose, Whole Blood 232 mg/dL (60-115)
--- NOTE | 2022-01-06 13:24 | PM.EVENT ---
Event Note Date of Service: 01/06/22 Event Note: seen and evaluated this morning Feeling more comfortable on 2 L of oxygen Continue steroids, bronchodilator nebulizers Wean oxygen down as tolerated
[2022-01-06 17:47] LABS: Glucose, Whole Blood 249 mg/dL (60-115)
[2022-01-06 21:04] LABS: Glucose, Whole Blood 295 mg/dL (60-115)
[2022-01-06] MEDS: Multivitamin TABLET 1 TAB PO (21:04)
[2022-01-06] MEDS: Atorvastatin Calcium 80 MG TABLET PO (21:04)
[2022-01-06] MEDS: Aspirin 81 MG TAB.CHEW PO (21:04)
[2022-01-07] VITALS (10 sets, daily range): BP systolic 99–126; BP diastolic 43–60; PULSE 68–99; RESP 14–17; TEMP 35.9–36.6; O2SAT 94–100
[2022-01-07 00:59] LABS: Glucose, Whole Blood 269 mg/dL (60-115)
[2022-01-07 06:54] LABS: Mean Corpuscular HGB Conc 30.3 g/dl (31.0-35.0); Mean Corpuscular Hemoglobin 24.8 pg (27.0-33.0); Mean Corpuscular Volume 81.7 fL (80.0-98.0); Mean Platelet Volume 11.6 fL (9.4-12.3); Platelet Count 243 X10*3/uL (160-400); Red Blood Count 4.04 X10*6/uL (4.20-5.50); Red Cell Distribution Width 16.2 % (11.0-16.0); White Blood Count 13.6 X10*3/uL (4.8-10.8)
[2022-01-07 06:58] LABS: Anion Gap 18 (12-20); Blood Urea Nitrogen 22 mg/dL (9-16); Calcium 9.5 mg/dL (8.4-10.2); Carbon Dioxide 22 mmol/L (22-29); Chloride 105 mmol/L (96-108); Creatinine Clr Calc Pharmacy 42.5; Estimated Glomerular Filt Rate 53; Glucose Random 252 mg/dL (60-115); Potassium 5.1 mmol/L (3.3-5.1); Sodium 140 mmol/L (135-145)
[2022-01-07 07:36] LABS: Glucose, Whole Blood 224 mg/dL (60-115)
[2022-01-07] MEDS: Albuterol/Iprat 2.5/0.5MG 3 ML AMPUL.NEB INHALE ×4 (08:06→19:09)
[2022-01-07] MEDS: Acetaminophen 325 MG TABLET 650 MG PO ×2 (08:38→20:56)
[2022-01-07] MEDS: UrsodioL 300 MG CAPSULE 600 MG PO ×2 (08:38→20:42)
[2022-01-07] MEDS: Topiramate 100 MG TABLET PO ×2 (08:38→20:44)
[2022-01-07] MEDS: 0.9 % Sodium Chloride Flush 3 ML SYRINGE IVFLUSH ×2 (08:39→17:09)
[2022-01-07] MEDS: amLODIPine Besylate 5 MG TABLET PO (08:39)
[2022-01-07] MEDS: Sodium Zirconium Cyclosilicate 5 GM POWD.PACK PO (08:39)
[2022-01-07] MEDS: Insulin Lispro 100 UNIT/ML 3 ML VIAL SUBCUT ×4 (08:52→20:44)
--- NOTE | 2022-01-07 10:11 | HO.PM.IMPN ---
Subjective Subjective Date of Service: 01/07/22 Interval History: the patient was seen and evaluated this morning Laying in bed, feels improvement since admission Still reporting dyspnea with exertion and wheezing No reported other overnight events. Systemic review: No fever, chills or weakness No chest pain, palpitation Dyspnea and wheezing No abdominal pain, nausea or vomiting No urinary symptoms No any rash or wounds Physical Exam Vital Signs: Vital Signs: Last Vital Signs Temp 97.9 F 01/07/22 08:00 Pulse 99 01/07/22 08:06 Resp 15 01/07/22 08:00 BP 115/50 L 01/07/22 08:00 Pulse Ox 100 01/07/22 08:00 O2 Del Method 01/07/22 08:00 O2 Flow Rate 3.0 01/07/22 08:00 Oxygen Flow Rate 2 01/05/22 23:00 BMI result Body Mass Index 27.8 Const: Other: Constitutional : Alert, oriented, not in distress Neck : Normal inspection, Supple Cardiovascular : RRR, no JVP, no lower extremity edema Respiratory : fair bilateral air entry, no crackles, bilateral expiratory wheezes, oxygen supplement Gastrointestinal: soft, lax, Normal bowel sounds, Non tender Skin : Warm, Dry Neurological : Alert & oriented x3, No focal deficit , CN 2-12 within normal Objective Data Active Medications Acetaminophen (Acetaminophen 325 Mg Tablet) 650 mg PO Q6H PRN PRN Reason: Pain, Mild (Pain Scale 1-3) Last Admin: 01/07/22 08:38 Dose: 650 mg Documented By: YONATHAN Albuterol/Ipratropium (Albuterol/Iprat 2.5/0.5mg 3 Ml Ampul.Neb) 3 ml INHALE RQ4H PRN PRN Reason: Shortness of Breath/Wheezing Albuterol/Ipratropium (Albuterol/Iprat 2.5/0.5mg 3 Ml Ampul.Neb) 3 ml INHALE RQ4H WHILE AWAKE [facility] Last Admin: 01/07/22 08:06 Dose: 3 ml Documented By: AVIS Amlodipine Besylate (Amlodipine Besylate 5 Mg Tablet) 5 mg PO DAILY [facility]; Protocol Last Admin: 01/07/22 08:39 Dose: 5 mg Documented By: YONATHAN Aspirin (Aspirin 81 Mg Tab.Chew) 81 mg PO BEDTIME [facility] Last Admin: 01/06/22 21:04 Dose: 81 mg Documented By: FADY Atorvastatin Calcium (Atorvastatin Calcium 80 Mg Tablet) 80 mg PO BEDTIME [facility] Last Admin: 01/06/22 21:04 Dose: 80 mg Documented By: FADY Dextrose (Dextrose 50 % 25 Gm/50 Ml Syringe) 25 gm IVPUSH Q15M PRN; Protocol PRN Reason: per Hypoglycemia Standing Ord. Glucose (Glucose Gel 15 Gm Gel..Gram.) 15 gm PO Q15M PRN; Protocol PRN Reason: per Hypoglycemia Standing Ord. Insulin Human Lispro (Insulin Lispro 100 Unit/Ml 3 Ml Vial) 0 unit SUBCUT QIDACHS [facility]; Protocol Last Admin: 01/07/22 08:52 Dose: 4 unit Documented By: YONATHAN Methylprednisolone Sodium Succinate (Methylprednisolone Sod Succ 40 Mg/Ml Vial) 40 mg IVPUSH Q12H [facility] Last Admin: 01/06/22 22:28 Dose: 40 mg Documented By: ROOSEVELT Multivitamins/Vitamin C (Multivitamin Tablet) 1 tab PO BEDTIME [facility] Last Admin: 01/06/22 21:04 Dose: 1 tab Documented By: FADY Nicotine Polacrilex (Nicotine Polacrilex 2 Mg Gum) 2 mg BUCCAL Q1H PRN PRN Reason: Nicotine Cravings Nicotine Polacrilex (Nicotine Polacrilex 2 Mg Gum) 2 mg BUCCAL Q2H PRN PRN Reason: Nicotine Cravings Nitroglycerin (Nitroglycerin 0.4 Mg Tab.Subl) 0.4 mg SUBLINGUAL DAILY PRN PRN Reason: CHEST PAIN Ondansetron HCl (Ondansetron Hcl 4 Mg/2 Ml Vial) 4 mg IVPUSH Q8H PRN PRN Reason: Nausea and Vomiting Sodium Chloride (0.9 % Sodium Chloride Flush 3 Ml Syringe) 3 ml IVFLUSH QSHIFT [facility] Last Admin: 01/07/22 08:39 Dose: 3 ml Documented By: YONATHAN Topiramate (Topiramate 100 Mg Tablet) 100 mg PO BID [facility] Last Admin: 01/07/22 08:38 Dose: 100 mg Documented By: YONATHAN Ursodiol (Ursodiol 300 Mg Capsule) 600 mg PO BID [facility] Last Admin: 01/07/22 08:38 Dose: 600 mg Documented By: YONATHAN Zolpidem Tartrate (Zolpidem Tartrate 5 Mg Tablet) 5 mg PO BEDTIME PRN PRN Reason: Insomnia Labs CBC & Chem 7: 01/07/22 05:56 01/07/22 05:56 Labs: Laboratory Results - last 24 hr 01/06/22 01/06/22 01/06/22 09:31 12:49 17:16 MCV MCH MCHC RDW Plt Count MPV Absolute Nucleated RBC Nucleated RBC % (auto) Anion Gap Estim Creat Clear Calc Estimated GFR POC Glucose 232 H 249 H Random Glucose Calcium Urine RBC 0-2 Urine WBC 0-5 Ur Squamous Epith Cells 0-2 Urine Bacteria None Seen Hyaline Casts 6-10 01/06/22 01/06/22 01/07/22 21:00 21:41 05:56 MCV 81.7 MCH 24.8 L MCHC 30.3 L RDW 16.2 H Plt Count 243 MPV 11.6 Absolute Nucleated RBC 0.000 Nucleated RBC % (auto) 0.0 Anion Gap Estim Creat Clear Calc Estimated GFR POC Glucose 295 H 269 H Random Glucose Calcium Urine RBC Urine WBC Ur Squamous Epith Cells Urine Bacteria Hyaline Casts 01/07/22 01/07/22 05:56 07:32 MCV MCH MCHC RDW Plt Count MPV Absolute Nucleated RBC Nucleated RBC % (auto) Anion Gap 18 Estim Creat Clear Calc 42.5 Estimated GFR 53 POC Glucose 224 H Random Glucose 252 H Calcium 9.5 Urine RBC Urine WBC Ur Squamous Epith Cells Urine Bacteria Hyaline Casts Microbiology Microbiology Results: Microbiology 01/06/22 00:46 Blood Culture - Preliminary Blood - Venous No growth after 24 hours. 01/05/22 22:46 Blood Culture - Preliminary Blood - Venous No growth after 24 hours. Assessment and Plan (1) Acute exacerbation of chronic obstructive airways disease: Status: Acute (2) History of smoking at least 1 pack per day for at least 30 years: Status: Acute (3) Acute respiratory failure with hypoxia: Status: Acute Plan 71-year-old female with past medical history of migraines, anxiety, COPD, HTN, HLD, CAD presents to the hospital with shortness of breath found to have COPD exacerbation # acute hypoxic respiratory failure, resolved # Secondary to acute COPD exacerbation Improving Required BiPAP at time of presentation in the ED Continue IV steroids Continue bronchodilator nebulizers ATC and p.r.n. Wean oxygen down as tolerated To do home O2 evaluation in the morning # smoker history of heavy smoking about 2 packs per day currently smokes 4 cigarettes daily Advised to quit smoking To use nicotine gums # migraine headache continue home treatment # hypertension continue home antihypertensives # CAD Continue aspirin and statin DVT prophylaxis: Lovenox Patient will need overnight hospital stay to continue treatment for hypoxia and COPD exacerbation pending weaning her off oxygen or need for home O2 to prevent possible decomposition into respiratory failure Quality Stroke Does the patient have a stroke diagnosis?: No VTE Prior VTE?: No VTE Risk Level:: Medical - moderate - high VTE Device Contraindication: Treatment Not Indicated VTE Drug Contraindication: N/A - Med Ordered
[2022-01-07 11:28] LABS: Glucose, Whole Blood 237 mg/dL (60-115)
[2022-01-07] MEDS: methylPREDNISolone Sod Succ 40 MG/ML VIAL IVPUSH (12:07)
[2022-01-07 16:29] LABS: Glucose, Whole Blood 193 mg/dL (60-115)
[2022-01-07 19:53] LABS: Glucose, Whole Blood 246 mg/dL (60-115)
[2022-01-07] MEDS: Aspirin 81 MG TAB.CHEW PO (20:44)
[2022-01-07] MEDS: Atorvastatin Calcium 80 MG TABLET PO (20:44)
[2022-01-07] MEDS: Multivitamin TABLET 1 TAB PO (20:44)
[2022-01-08] VITALS: BP 125/62; PULSE 80; RESP 17; TEMP 36.5; O2SAT 97
[2022-01-08] MEDS: methylPREDNISolone Sod Succ 40 MG/ML VIAL IVPUSH ×2 (00:42→11:25)
[2022-01-08] MEDS: 0.9 % Sodium Chloride Flush 3 ML SYRINGE IVFLUSH ×2 (00:43→08:39)
[2022-01-08 04:00] VITALS: BP 110/55; PULSE 76; RESP 17; TEMP 36.2; O2SAT 97
[2022-01-08 06:48] LABS: Hematocrit 32.8 % (37.0-47.0); Hemoglobin 9.9 g/dl (12.0-16.0); Mean Corpuscular HGB Conc 30.2 g/dl (31.0-35.0); Mean Corpuscular Hemoglobin 24.7 pg (27.0-33.0); Mean Corpuscular Volume 81.8 fL (80.0-98.0); Mean Platelet Volume 12.3 fL (9.4-12.3); Platelet Count 247 X10*3/uL (160-400); Red Blood Count 4.01 X10*6/uL (4.20-5.50); Red Cell Distribution Width 16.3 % (11.0-16.0); White Blood Count 12.6 X10*3/uL (4.8-10.8)
[2022-01-08 06:54] LABS: Anion Gap 16 (12-20); Blood Urea Nitrogen 31 mg/dL (9-16); Calcium 9.2 mg/dL (8.4-10.2); Carbon Dioxide 23 mmol/L (22-29); Chloride 104 mmol/L (96-108); Creatinine Clr Calc Pharmacy 43.4; Estimated Glomerular Filt Rate 54; Glucose Random 204 mg/dL (60-115); Potassium 4.8 mmol/L (3.3-5.1); Sodium 138 mmol/L (135-145)
[2022-01-08 07:20] LABS: Glucose, Whole Blood 202 mg/dL (60-115)
[2022-01-08 07:57] VITALS: BP 103/46; PULSE 80; RESP 18; TEMP 36.8; O2SAT 98
[2022-01-08] MEDS: UrsodioL 300 MG CAPSULE 600 MG PO (08:36)
[2022-01-08] MEDS: Topiramate 100 MG TABLET PO (08:36)
[2022-01-08] MEDS: amLODIPine Besylate 5 MG TABLET PO (08:36)
[2022-01-08] MEDS: Insulin Lispro 100 UNIT/ML 3 ML VIAL SUBCUT (08:36)
--- NOTE | 2022-01-08 08:40 | PC.NURSE ---
Patient's breathing unlabored reports she had an ok night. Talking in clear full sentences. Patient transitioned to 1 liter NC. Will monitor. Sitting up right eating berakfast in NAD
--- NOTE | 2022-01-08 08:44 | PC.NURSE ---
Patirny now transitioed off oxygen. +coughing, with expiratory wheeze. Awaiting oxygen eval. Patient aware of plan and agrees to this,
[2022-01-08 10:02] VITALS: PULSE 74; RESP 20; O2SAT 93
[2022-01-08] MEDS: Albuterol/Iprat 2.5/0.5MG 3 ML AMPUL.NEB INHALE (10:02)
[2022-01-08 10:03] VITALS: PULSE 103; PULSE 74; O2SAT 91; O2SAT 93
[2022-01-08] MEDS: Acetaminophen 325 MG TABLET 650 MG PO (11:25)
--- NOTE | 2022-01-08 11:26 | PM.DS ---
DS: Providers Provider Date of Service: 01/08/22 Date of admission: 01/06/22 04:45 Primary care physician: Unknown Physician DS: Diagnosis Discharge Diagnosis (1) Acute exacerbation of chronic obstructive airways disease: Status: Acute (2) History of smoking at least 1 pack per day for at least 30 years: Status: Acute (3) Acute respiratory failure with hypoxia: Status: Acute DS: Summary Hospital Course Hospital Course: Admission note HPI ?71-year-old female with past medical history of COPD, anxiety, CAD, CHF, diabetes, HLD, migraine headaches, presents to the hospital with complaints of shortness of breath, cough, sputum production.? Symptoms started earlier on the day of presentation, she denies any fever no chills, no chest pain, no abdominal pain, nausea or vomiting, no palpitations.? No lower extremity edema, no? orthopnea or PND .? No urinary symptoms .? Patient reports a migraine headache at this time. On arrival to the ED patient found to have a heart rate of 113, respiratory rate of 32 , ? Patient was found to be 7.31 with a pH of 52.? Patient was placed on BiPAP for few hours with improvement in her VBG ?labs are significant for? WBC count 13.9 which is chronically high, labs otherwise unremarkable X-ray of the chest shows no acute cardiopulmonary findings Hospital course The patient was admitted for acute hypoxic respiratory failure secondary to COPD exacerbation requiring BiPAP at time of presentation in the emergency with fair response as she was started on IV steroids, bronchodilator nebulizers and oxygen supplement with good response over the course of hospital stay as she was weaned off the oxygen and tolerated ambulation on room air with no drop in her oxygen supplement. Advised to quit smoking as nicotine gums were prescribed. She did not qualify for home oxygen at the day of discharge. We advise you to quit smoking completely Use nicotine lozenges as needed Prednisone for the next 3 days continue to use your home nebulizer for the next 3 days every 4-6 hours to follow-up as outpatient with your PCP Time Spent with Patient Time attestation: Total time spent providing and/or coordinating discharge services: Discharge coordination time: Greater than 30 minutes Quality: Safe Use of Opioids Does Pt have an Active Cancer Diagnosis on the Problem List?: No Quality: Stroke Does the patient have a stroke diagnosis?: No Physical Exam Vital Signs: Vital Signs: Last Vital Signs Temp 98.3 F 01/08/22 07:57 Pulse 74 01/08/22 10:02 Resp 20 01/08/22 10:02 BP 103/46 L 01/08/22 07:57 Pulse Ox 98 01/08/22 07:57 O2 Del Method 01/08/22 07:57 O2 Flow Rate 2.0 01/08/22 07:57 Oxygen Flow Rate 2 01/05/22 23:00 BMI result Body Mass Index 27.8 Const: Other: Constitutional : Alert, oriented, not in distress Neck : Normal inspection, Supple Cardiovascular : RRR, no JVP, no lower extremity edema Respiratory : fair bilateral air entry,? no crackles, no wheezes, on room Gastrointestinal:? soft, lax, Normal bowel sounds, Non tender Skin : Warm, Dry Neurological : Alert & oriented x3, No focal deficit , CN 2-12 within normal DS: Data Data Completed and Pending Labs on day of discharge: Laboratory Results - last 24 hr 01/07/22 01/07/22 01/07/22 11:16 16:24 19:49 WBC RBC Hgb Hct MCV MCH MCHC RDW Plt Count MPV Absolute Nucleated RBC Nucleated RBC % (auto) Sodium Potassium Chloride Carbon Dioxide Anion Gap BUN Creatinine Estim Creat Clear Calc Estimated GFR POC Glucose 237 H 193 H 246 H Random Glucose Calcium 01/08/22 01/08/22 01/08/22 05:32 05:32 07:03 WBC 12.6 H RBC 4.01 L Hgb 9.9 L Hct 32.8 L MCV 81.8 MCH 24.7 L MCHC 30.2 L RDW 16.3 H Plt Count 247 MPV 12.3 Absolute Nucleated RBC 0.000 Nucleated RBC % (auto) 0.0 Sodium 138 Potassium 4.8 Chloride 104 Carbon Dioxide 23 Anion Gap 16 BUN 31 H Creatinine 1.01 Estim Creat Clear Calc 43.4 Estimated GFR 54 POC Glucose 202 H Random Glucose 204 H Calcium 9.2 Preliminary micro results at discharge 01/06/22 00:46 Blood Culture - Preliminary Blood - Venous No growth after 48 hours. 01/05/22 22:46 Blood Culture - Preliminary Blood - Venous No growth after 48 hours. Discharge Plan Discharge Patient Disposition: Home, Self-Care Discharge Diagnosis: COPD exacerbation Referrals: Physician,Unknown J [Primary Care Provider] - 1 Week Discharge Medications: New prednisone 20 mg tablet 40 mg PO DAILY Qty: 6 0RF benzonatate 100 mg capsule 100 mg PO TID PRN (Reason: cough) Qty: 14 0RF nicotine (polacrilex) 2 mg lozenge 2 mg buccal Q4-8H PRN (Reason: nicotine cravings) Qty: 72 0RF Continued topiramate 100 mg tablet 100 mg PO BID Qty: 180 3RF acetaminophen [Tylenol] 325 mg tablet 325 mg PO Q6H PRN (Reason: pain) Qty: 90 3RF (DME) lancets [FreeStyle Lancets] 28 gauge misc See Rx Instructions .Route Qty: 100 3RF Rx Instructions: test blood sugar once a day ursodiol 500 mg tablet 500 mg PO BID Qty: 90 2RF (DME) FreeStyle Lite Strips Strip See Rx Instructions .Route Qty: 100 3RF Rx Instructions: test once a day albuterol sulfate 2.5 mg /3 mL (0.083 %) solution for nebulization 2.5 mg inhalation Q4-6H PRN (Reason: shortness of breath or wheezing) Qty: 180 0RF nitroglycerin 0.4 mg tablet, sublingual 1 tab sublingual NEEDED atorvastatin 80 mg tablet 80 mg PO BEDTIME cyanocobalamin (vitamin B-12) 1,000 mcg tablet 2 tab PO BEDTIME aspirin 81 mg tablet,chewable 1 tab PO BEDTIME cholecalciferol (vitamin D3) 25 mcg (1,000 unit) tablet 25 mcg PO BEDTIME gabapentin 100 mg capsule 300 mg PO BID isosorbide mononitrate 30 mg tablet extended release 24 hr 30 mg PO DAILY metformin 750 mg tablet extended release 24 hr 750 mg PO DAILY Qty: 90 2RF amlodipine 5 mg tablet 5 mg PO DAILY (DME) lancets [TRUEplus Lancets] 33 gauge misc See Rx Instructions .ROUTE DAILY Qty: 100 Rx Instructions: As directed albuterol sulfate 90 mcg/actuation HFA aerosol inhaler 2 puff inhalation Q4H PRN (Reason: shortness of breath or wheezing) Qty: 8.5 6RF zolpidem 5 mg tablet 5 mg PO BEDTIME PRN (Reason: Insomnia) cetirizine [Zyrtec] 10 mg tablet 10 mg PO DAILY Qty: 30 6RF multivitamin [Daily Multi-Vitamin] Tablet 1 tab PO BEDTIME lisinopril 2.5 mg tablet 2.5 mg PO BEDTIME Trelefeliz Ellipta 100-62.5-25 mcg blister with device 1 inh inhalation BEDTIME Discharge Orders: Discharge Order (Routine); Ordered 01/08/22 Ordered By: Glenn Santiago Diet: Advance to usual diet Activity on Discharge: As tolerated Stand Alone Forms: Patient Portal Discharge page Care Plan Goals: Read below Health Concerns: Read below Plan of Treatment: Read below Assessment: You were admitted to the hospital for evaluation of difficulty breathing. Treated for COPD exacerbation with steroids, nebulizers and oxygen with good response as you were weaned off the oxygen. Evaluated for home oxygen but did not qualify for it. We advise you to quit smoking completely Use nicotine lozenges as needed Prednisone for the next 3 days continue to use your home nebulizer for the next 3 days every 4-6 hours to follow-up as outpatient with your PCP
[2022-01-08 11:28] LABS: Glucose, Whole Blood 149 mg/dL (60-115)
[2022-01-08 12:00] VITALS: BP 98/42; PULSE 84; RESP 14; TEMP 36.6; O2SAT 93
--- NOTE | 2022-01-08 12:51 | MHC.CM.PN ---
PT MEDICALLY CLEARED FOR D/C HOME SELF-CARE, PT REPORTS SHE HAS DIL UPSTAIRS WHO IS A [employer] HEL[employer] WHO DOES EVERYTHING, PT REPORTS HER HOUSEMATE WILL TRANSPORT.
== END 2022-01-08 13:28 | disposition home or self-care (01) | DRG 190 ==
LOC: HO.ED 01-06 03:00 → HO.EDOVER 01-06 04:51 → HO.S3 01-06 20:23
PROVIDERS: Nurse Practitioner Family; Admitting Provider Internal Medicine; Emergency Provider Emergency Medicine; PCP Internal Medicine; Visit Provider Student in an Organized Health Care Education/Training Program
DX: J44.1 Chronic obstructive pulmonary disease with (acute) exacerbation (principal); J96.01 Acute respiratory failure with hypoxia; I25.10 Atherosclerotic heart disease of native coronary artery without angina pectoris; F41.9 Anxiety disorder, unspecified; E11.42 Type 2 diabetes mellitus with diabetic polyneuropathy; K75.81 Nonalcoholic steatohepatitis (NASH); E78.5 Hyperlipidemia, unspecified; I11.0 Hypertensive heart disease with heart failure; I50.9 Heart failure, unspecified; G43.909 Migraine, unspecified, not intractable, without status migrainosus; Z20.822 Contact with and (suspected) exposure to COVID-19; Z88.0 Allergy status to penicillin; Z88.2 Allergy status to sulfonamides; Z88.7 Allergy status to serum and vaccine; Z88.8 Allergy status to other drugs, medicaments and biological substances; Z79.51 Long term (current) use of inhaled steroids; Z79.52 Long term (current) use of systemic steroids; Z79.82 Long term (current) use of aspirin; Z79.899 Other long term (current) drug therapy
CPT/HCPCS: 36415; 71045; 80048; 80053; 80061; 80076; 81001; 81003; 82803; 82947; 83036; 83605; 83690; 83735; 83880; 84484; 85025; 85027; 87040; 87635; 93005; 94640; 94660; 99285; J0696; J2920; J2930; J3360

== ENCOUNTER → 2022-02-11 11:10 | Outpatient (BNVA) | payer MEDICARE, MEDICAID, OTHER, SELFPAY | PROVIDERS: PCP Internal Medicine; Visit Provider Internal Medicine | DX: J44.9 Chronic obstructive pulmonary disease, unspecified (principal); F41.9 Anxiety disorder, unspecified; R91.1 Solitary pulmonary nodule; F17.210 Nicotine dependence, cigarettes, uncomplicated | CPT/HCPCS: 99212 ==

== ENCOUNTER 2022-03-21 11:58 | Emergency (ER) | payer MEDICARE, OTHER, SELFPAY ==
--- NOTE | ~2022-03-21 | XR_ITS ---
EXAMINATION: XR CHEST CLINICAL INFORMATION: Shortness of breath COMPARISON: 01/05/2022 TECHNIQUE: Frontal view of the chest was obtained. FINDINGS: The emphysematous lungs are well expanded and clear. Cardiac silhouette is normal in size. The hilar contours are normal. The pulmonary vascular pattern is normal. There is atherosclerotic calcification of the aorta. No acute findings are visualized within the degenerated spine. Probable remote surgical resection of distal left clavicle. Anterior cervical spine fusion hardware is partially included in the [id number]. XR/XR chest 1V IMPRESSION: No acute pulmonary disease compared to 01/05/2022.
--- NOTE | ~2022-03-21 | CT_ITS ---
EXAMINATION: CT ANGIOGRAM OF THE CHEST WITH CONTRAST (CT PULMONARY ANGIOGRAM FOR PE) CLINICAL INFORMATION: Reason for Exam SOB, chest pain, tachycardic, elevated D-DIMER COMPARISON: Chest CT from 11/26/2021. TECHNIQUE: Prior to contrast administration, noncontrast localization images were obtained. Subsequently, multidetector volumetric imaging was performed from the thoracic inlet to below the diaphragms following the administration of 75 mL Omnipaque 350 intravenous contrast. No contrast reaction reported. Sagittal, coronal, and MIP oblique sagittal reformatted images were obtained on the CT workstation, uploaded to PACS, and reviewed. This CT examination was performed using dose optimization techniques as appropriate, variously including the following: *Automated exposure control *Adjustment of mA and/or kV according to patient size (this includes techniques or standardized protocols for targeted exams where dose is matched to indication/reason for exam; i.e. extremities or head) *Use of iterative reconstruction technique DLP: Total exam dose-length product 277 mGy-cm FINDINGS: LUNGS AND PLEURA: Moderate centrilobular emphysema and paraseptal emphysematous changes, as well. No acute pulmonary findings. No edema, consolidation, pleural effusion or pneumothorax. There are a few old stable noncalcified pulmonary nodules that remain unchanged compared to 11/04/2020 and 11/26/2021, including a focus of 0.4 cm average diameter in the superior segment of the left lower lobe and 0.3 cm foci in the superior segment of the left lower lobe (123, series 7) and lateral right lower lobe (333, series 7). No new nodule or mass. If Fleischner Society guidelines were utilized, no follow-up imaging would be recommended. QUALITY OF STUDY/CONTRAST BOLUS: Satisfactory. CARDIOVASCULAR: Pulmonary arteries are normal in caliber. No evidence of embolic filling defects in the main, lobar or segmental vessels. The evaluation of peripheral vessels is limited in lower lobes by mild motion degradation of images. The heart size is normal. No pericardial effusion. Three-vessel coronary artery atherosclerotic calcification. Thoracic aorta atherosclerosis without aneurysm or dissection. MEDIASTINUM/LOWER NECK: No mediastinal mass. Thyroid gland and esophagus are grossly unremarkable. LYMPHATICS: No pathologic sized axillary, hilar or mediastinal lymph nodes. UPPER ABDOMEN: No contrast reflux into the inferior vena cava. There is hepatomegaly. No acute findings in the visualized portion of the liver. Please refer to the test results from the abdomen ultrasound with elastography performed on 09/05/2021. A large lymph node located superior to the celiac artery measures 1.9 cm in short axis dimension (1.2 cm on 11/04/2020, and 1.6 cm on 11/26/2021). Note that the patient had omental caking on the abdomen on CT exam of 06/08/2018. OSSEOUS STRUCTURES: Multilevel discovertebral degenerative change of the visualized spine. No evidence of loosening of the cervical spine fusion hardware. No aggressive osseous lesion. CT/CT angio chest PE protocol IMPRESSION: * Moderate pulmonary emphysema. * No acute pulmonary disease. No evidence of pulmonary embolism. * A few small stable pulmonary nodules are detected. No new lung nodule, pulmonary mass or pleural effusion. * Atherosclerotic disease of coronary arteries and thoracic aorta without aortic aneurysm. * Progressive enlargement of a lymph node in the upper abdomen, likely from metastatic disease process.
[2022-03-21 12:07] VITALS: BP 111/48; BP 111/65; PULSE 114; RESP 16; TEMP 36.6; O2SAT 94; O2SAT 97; BMI 26.4
--- NOTE | 2022-03-21 12:22 | ECG_ITS ---
Test Reason : CX PAIN Blood Pressure : / mmHG Vent. Rate : 107 BPM Atrial Rate : 107 BPM P-R Int : 128 ms QRS Dur : 124 ms QT Int : 372 ms P-R-T Axes : -25 084 026 degrees QTc Int : 496 ms Sinus tachycardia Right bundle branch block Abnormal ECG When compared with ECG of 05-JAN-2022 22:33, Premature ventricular complexes are no longer Present Referred By: Rose Jacobo Electronically Signed By:JOE HUNTER MD
--- NOTE | 2022-03-21 12:28 | PC.NURSE ---
PT reports increased SOB and chest pressure since Thursday. Reports dry cough, tender chest pain to touch, does not radiate. PT sat 95% on RA, resp. rate 18, wheezing on auscultation.
--- NOTE | 2022-03-21 12:51 | ED.SOB ---
HPI - SOB/Dyspnea General Chief Complaint: Dyspnea Stated Complaint: CHEST PRESSURE,SOB Time Seen by Provider: 03/21/22 12:21 Source: patient, EMS and old records reviewed Mode of arrival: EMS Limitations: no limitations History of Present Illness HPI Narrative: 71-year-old female with history of COPD on chronic prednisone, active smoker with a 70+ pack-year smoking history, hx CAD s/p LAD PCI in the past, CHRISTINE, DM2 with polyneuropathy, anxiety, hx bladder cancer, who presents to the ER from home via EMS with 6 days of intermittent SOB and chest pressure. She states she has had worsening in her breathing with episodes of shortness of breath, wheezing along with chest pressure. She has been compliant with her nebulizer treatments at home and trying to cut back her smoking, she is down to 6 cigarettes per day. She reports the chest pressure is when she is having trouble breathing only. It is reproducible on the left side of her chest. She states her cough is at its baseline but she has a new production of orange phlegm at nighttime. She denies any fever or chills. She was recently started on 5 mg of prednisone for 3 months duration by her tractor mechanic apprentice. She was last hospitalized for her COPD in December x1 in October x per her report. MD elicited complaint: shortness of breath and chest pain Pertinent past history: COPD and diabetes Onset (ago): day(s) (6) Timing: intermittent Severity: moderate Exacerbating factors: exertion and coughing Relieving factors: rest, bronchodilators and upright position Known history of: COPD and diabetes Associated symptoms: chest pain, cough, wheezing and sputum production Treatment prior to arrival: none Related Data Home oxygen amount: none Home Medications Medication Instructions Recorded Confirmed multivitamin (Daily Multi-Vitamin 1 tab PO BEDTIME 12/25/20 02/11/22 tablet) aspirin 81 mg chewable tablet 1 tab PO BEDTIME 09/11/21 02/11/22 atorvastatin 80 mg tablet 80 mg PO BEDTIME 09/11/21 02/11/22 cholecalciferol (vitamin D3) 25 25 mcg PO BEDTIME 09/11/21 02/11/22 mcg (1,000 unit) tablet nitroglycerin 0.4 mg sublingual 1 tab sublingual NEEDED angina 09/11/21 02/11/22 tablet isosorbide mononitrate 30 mg 30 mg PO DAILY 09/25/21 02/11/22 tablet,extended release 24 hr zolpidem 5 mg tablet 5 mg PO BEDTIME PRN Insomnia 11/06/21 02/11/22 amlodipine 5 mg tablet 5 mg PO DAILY 11/20/21 02/11/22 lancets 33 gauge (TRUEplus Lancets) #100 ea 11/20/21 02/11/22 Previous Rx's Medication Instructions Recorded topiramate 100 mg tablet 100 mg PO BID #180 tabs 01/08/21 lancets 28 gauge (FreeStyle #100 ea 08/07/21 Lancets) ursodiol 500 mg tablet 500 mg PO BID #90 tabs 08/21/21 blood sugar diagnostic (FreeStyle #100 ea 09/16/21 Lite Strips) metformin 750 mg tablet,extended 750 mg PO DAILY #90 tabs 09/25/21 release 24 hr cetirizine 10 mg tablet (Zyrtec) 10 mg PO DAILY #30 tabs 11/06/21 benzonatate 100 mg capsule 100 mg PO TID PRN cough #14 caps 01/08/22 nicotine (polacrilex) 2 mg buccal 2 mg buccal Q4-8H PRN nicotine 01/08/22 lozenge cravings #72 ea prednisone 20 mg tablet 40 mg PO DAILY #6 tabs 01/08/22 albuterol sulfate 90 mcg/actuation 2 puff inhalation Q4H PRN 01/16/22 aerosol inhaler shortness of breath or wheezing #8.5 grams nystatin 100,000 unit/gram topical 1 appl topical TID #60 grams 01/17/22 powder prednisone 5 mg tablet 5 mg PO BID SEVERE COPD 30 days 02/11/22 #60 tabs acetaminophen 325 mg tablet 325 mg PO Q6H PRN pain #90 tabs 02/13/22 (Tylenol) cyanocobalamin (vitamin B-12) 2,000 mcg PO BEDTIME #180 tabs 02/13/22 1,000 mcg tablet fluticasone fur. 100 mcg-umeclid 1 inh inhalation DAILY #180 ea 02/13/22 62.5 mcg-vilant 25 mcg inhalat.powder (Trelegy Ellipta) gabapentin 100 mg capsule 200 mg PO BID #360 caps 02/13/22 lisinopril 2.5 mg tablet 2.5 mg PO BEDTIME #90 tabs 02/13/22 albuterol sulfate 2.5 mg/3 mL 2.5 mg (3 mL) inhalation Q4-6H PRN 03/07/22 (0.083 %) solution for nebulization for wheezing #180 mL doxycycline hyclate 100 mg tablet 100 mg PO BID #14 tabs 03/21/22 prednisone 50 mg tablet 50 mg PO DAILY #5 tabs 03/21/22 Allergies Allergy/AdvReac Type Severity Reaction Status Date / Time amoxicillin [AMOXICILLIN] Allergy Mild DIARRHEA Verified 03/05/22 16:17 Darvocet A500 Allergy Unknown upset Verified 03/05/22 16:17 stomach melatonin Allergy Unknown Nausea and Verified 03/05/22 16:17 Vomiting oxycodone [From PERCOCET] Allergy Unknown NAUSEA,VOMI Verified 03/05/22 16:17 TING Propoxyphene HCl Allergy Unknown upset Verified 03/05/22 16:17 stomach influenza virus vaccine, AdvReac Intermediate NAUSEA,DIAR Verified 03/05/22 16:17 specific WU [FLU VACCINE] lactose [LACTOSE] AdvReac Intermediate GI UPSET Verified 03/05/22 16:17 metronidazole [From FLAGYL] AdvReac Intermediate NAUSEA & Verified 03/05/22 16:17 VOMITING Sulfa (Sulfonamide AdvReac Intermediate EYE DROPS Verified 03/05/22 16:17 Antibiotics) (ONLY)-IRITIS Review of Systems Review of Systems: Constitutional: No Fever, No Chills ENT/Mouth: No sore throat, No Rhinorrhea Cardiovascular: + Chest Pain, +SOB, No Orthopnea, No Edema Respiratory: + Cough, + Sputum, + Wheezing, + dyspnea Gastrointestinal: No Nausea, No Vomiting, No Diarrhea, No abdominal Pain Genitourinary: No Dysuria, No Urinary Frequency, No Hematuria Musculoskeletal: No joint pain, No Myalgias Skin: No Skin Lesions, No rash Neuro: No Weakness, No Numbness, No Dizziness, No Headache Psych: No Anxiety/Panic, No Depression Heme/Lymph: No Bruising, No Lymphadenopathy PMFSH Past Medical History Medical History Anxiety CAD (coronary artery disease) Cervical stenosis of spine COPD (chronic obstructive pulmonary disease) COPD (chronic obstructive pulmonary disease) Depression Diabetic polyneuropathy associated with type 2 diabetes mellitus DM type 2 (diabetes mellitus, type 2) Elevated BUN History of smoking at least 1 pack per day for at least 30 years HTN (hypertension) Hyperlipidemia Left leg swelling Low vitamin D level Migraine headache Neck pain Nonalcoholic steatohepatitis (CHRISTINE) Pulmonary nodule Smoker Smoker Smoker Vertigo Vitamin B 12 deficiency Vitamin B12 deficiency Surgical History Fusion of spine of cervical region History of carpal tunnel release History of hysterectomy Family History Family History Mother CVD (cardiovascular disease) CVA (cerebral vascular accident) Father CVD (cardiovascular disease) Social History Social History Household Members: Other Household Members Other:: roommate Housing: House Do you presently have visiting nurse or other home services: No Alcohol intake: never Patient Tobacco Use Status: Current someday Tobacco user Tobacco use type: Cigarette Cigarettes Per Day: 3 Years Smoked: 62 e-Cigarette/Vaping Use: Never Used Second Hand Smoke Exposure: No Advance Directives: Yes Advance Directives on File: Yes Advance Directives Date on File: 11/14/21 service: No Current occupational status: retired Current occupation: Right Handed Cognitive needs: No Hearing needs: No Vision needs: Yes Physical Exam Vital Signs: Vital Signs: Last Vital Signs Temp 98.1 F 03/21/22 15:58 Pulse 94 03/21/22 15:58 Resp 17 03/21/22 15:58 BP 138/60 03/21/22 15:58 Pulse Ox 96 03/21/22 15:58 O2 Del Method 03/21/22 15:58 BMI result Body Mass Index 26.4 Appearance: Alert. Oriented X3. No acute distress. Eyes: Pupils equal, round and reactive to light. ENT: Pharynx normal. Neck: Normal inspection. Neck supple. CVS: Tachycardic, heart rate 110, regular rhythm. Pulses normal. Respiratory: No respiratory distress. Breath sounds with poor inspiratory effort and poor air entry, diffuse expiratory wheezing throughout with a prolonged expiratory phase. Abdomen: Soft and nontender. +BS x4 Skin: Skin warm and dry. Normal skin color. Normal skin turgor. No rashes. Extremities: No lower extremity edema. No calf tenderness. Neuro: Oriented X 3. No motor deficit. No sensory deficit. Course Course Course Narrative: 71-year-old female with a longstanding history of COPD, active smoker, anxiety, diabetes with neuropathy, history of coronary artery disease status post stent in the past, HLD who presents to the ER with 6 days of intermittent shortness of breath and chest pressure. On examination she does have reproducible chest pain on the left side. She reports the chest pressure only occurs when she is having difficulty breathing, this is worse with exacerbation and also occurs randomly throughout the day. She writes to the ER with stable O2 sats, able to speak in complete sentences. She does have decreased air movement and wheezes throughout. Will give her a treatment with DuoNebs, IV steroids, check chest x-ray, D-dimer given her tachycardia and complaints. Will reassess. Dispo pending results and improvement. Reevaluation(s) Reevaluation #1: WBC 11.8, she is on chronic steroids. Given IV doxycycline for COPD exacerbation, no evidence of pneumonia. trop 7.2, reassuing against any ACS. EKG without ischemic changes. Reevaluation #2: Aeration and wheezing have improved after DuoNeb. Her CTA is negative for pneumonia, negative for PE. It did show an enlarging lymph node which is concerning for metastatic process. She does have known bladder cancer and follows with Dr. Ponce. She has not had a colonoscopy in a very long time. We discussed these results with the importance of outpatient follow-up. She remains on room air with oxygen saturations 96%. She is able to speak in full sentences and has improvement in her wheezing. At this time comfortable with discharge home for treatment of her COPD exacerbation with oral steroids, oral doxycycline, mucolytics and nebulizers. She will follow-up with her primary care doctor and her tractor mechanic apprentice next week. She is stable for DC home. Return precautions were discussed. Medications Administered Discontinued Medications Generic Name Dose Route Start Last Admin Trade Name Freq PRN Reason Stop Dose Admin Albuterol/Ipratropium 3 ml 03/21/22 12:33 03/21/22 12:53 Albuterol/Iprat 2.5/0.5mg 3 Ml Ampul.Neb INHALE 03/21/22 12:34 3 ml ONCE ONE Administration Doxycycline Hyclate 100 mg/ 250 mls @ 166.67 mls/hr 03/21/22 12:33 03/21/22 15:30 Sodium Chloride IV 03/21/22 14:02 Infused ONCE ONE Infusion Sodium Chloride 1,000 mls @ 999 mls/hr 03/21/22 14:00 03/21/22 13:55 Ns IVCONT 03/21/22 15:00 999 mls/hr .Q1H1M ALEXANDRE Administration Iohexol 100 ml 03/21/22 15:14 03/21/22 15:14 Iohexol 350 Mg/Ml 100 Ml Infus..Btl IV 03/21/22 15:15 65 ml ONCE ONE Administration Methylprednisolone Sodium Succinate 60 mg 03/21/22 12:33 03/21/22 13:42 Methylprednisolone Sod Succ 125 Mg/2 Ml Vial IVPUSH 03/21/22 12:34 60 mg ONCE ONE Administration MDM - SOB/Dyspnea Differential Diagnosis Differential diagnosis: Likely acute exacerbation of chronic obstructive airways disease, congestive heart failure, pneumonia, asthma with exacerbation, pulmonary embolism, pleural effusion, sleep apnea and anemia Medical Records Attestation: I reviewed the patient's medical records. Lab Data Attestation: I reviewed the patient's lab results. Result diagrams: 03/21/22 13:07 03/21/22 13:07 Labs: Lab Results 03/21/22 03/21/22 03/21/22 Range/Units 13:07 13:07 13:07 WBC 11.8 H (4.8-10.8) X10*3/uL RBC 4.89 D (4.20-5.50) X10*6/uL Hgb 11.7 L (12.0-16.0) g/dl Hct 39.4 D (37.0-47.0) % MCV 80.6 (80.0-98.0) fL MCH 23.9 L (27.0-33.0) pg MCHC 29.7 L (31.0-35.0) g/dl RDW 16.5 H (11.0-16.0) % Plt Count 306 (160-400) X10*3/uL MPV 11.3 (9.4-12.3) fL Immature Gran % (Auto) 1.0 H (0.0-0.4) % Neut % (Auto) 59.6 (45-73) % Lymph % (Auto) 27.5 (20-40) % [place] % (Auto) 8.1 (2-11) % Eos % (Auto) 2.9 (0-4) % Baso % (Auto) 0.9 (0-2) % Lymph # (Auto) 3.2 (1.2-4.9) X10*3/uL [place] # (Auto) 1.0 (0.1-1.2) X10*3/uL Eos # (Auto) 0.3 (0.0-0.4) X10*3/uL Baso # (Auto) 0.1 (0.0-0.2) X10*3/uL Abs Immat Gran (auto) 0.12 H (0.00-0.03) X10*3/uL Absolute Neuts (auto) 7.0 (2.0-8.3) x10*3/uL Absolute Nucleated RBC 0.000 (0.0-0.012) X10*3/uL Nucleated RBC % (auto) 0.0 (0.0-0.2) /100WBC PT 10.2 (10.0-13.1) SEC INR 0.9 (0.9-1.1) APTT 27.9 (26.0-36.4) SEC D-Dimer High Sensitivty 667 NG/ML Sodium 140 (135-145) mmol/L Potassium 4.6 (3.3-5.1) mmol/L Chloride 104 (96-108) mmol/L Carbon Dioxide 23 (22-29) mmol/L Anion Gap 18 (12-20) BUN 7 L D (9-16) mg/dL Creatinine 0.85 (0.5-1.4) mg/dL Estim Creat Clear Calc 50.3 Estimated GFR > 60 Random Glucose 126 H (60-115) mg/dL Lactic Acid (0.5-2.0) mmol/L Calcium 9.4 (8.4-10.2) mg/dL Magnesium 2.0 (1.6-2.6) mg/dL Total Bilirubin 0.2 (0.0-1.0) mg/dL Direct Bilirubin < 0.2 (0.0-0.5) mg/dL AST 32 H (5-31) U/L ALT 31 (0-31) U/L Alkaline Phosphatase 153 H (39-117) U/L Troponin I High Sens (<3.5-17.0) ng/L B-Natriuretic Peptide (<100) pg/mL Total Protein 7.4 (6.5-8.0) g/dL Albumin 3.8 (3.5-5.0) g/dL Procalcitonin ng/mL COVID-19 (JENNIFER) (Negative) COVID-19 Clin Com Influenza Type A (GABRIELA) (Negative) Influenza Type B (GABRIELA) (Negative) Influenza A & B Note 03/21/22 03/21/22 03/21/22 Range/Units 13:07 13:07 13:07 WBC (4.8-10.8) X10*3/uL RBC (4.20-5.50) X10*6/uL Hgb (12.0-16.0) g/dl Hct (37.0-47.0) % MCV (80.0-98.0) fL MCH (27.0-33.0) pg MCHC (31.0-35.0) g/dl RDW (11.0-16.0) % Plt Count (160-400) X10*3/uL MPV (9.4-12.3) fL Immature Gran % (Auto) (0.0-0.4) % Neut % (Auto) (45-73) % Lymph % (Auto) (20-40) % [place] % (Auto) (2-11) % Eos % (Auto) (0-4) % Baso % (Auto) (0-2) % Lymph # (Auto) (1.2-4.9) X10*3/uL [place] # (Auto) (0.1-1.2) X10*3/uL Eos # (Auto) (0.0-0.4) X10*3/uL Baso # (Auto) (0.0-0.2) X10*3/uL Abs Immat Gran (auto) (0.00-0.03) X10*3/uL Absolute Neuts (auto) (2.0-8.3) x10*3/uL Absolute Nucleated RBC (0.0-0.012) X10*3/uL Nucleated RBC % (auto) (0.0-0.2) /100WBC PT (10.0-13.1) SEC INR (0.9-1.1) APTT (26.0-36.4) SEC D-Dimer High Sensitivty NG/ML Sodium (135-145) mmol/L Potassium (3.3-5.1) mmol/L Chloride (96-108) mmol/L Carbon Dioxide (22-29) mmol/L Anion Gap (12-20) BUN (9-16) mg/dL Creatinine (0.5-1.4) mg/dL Estim Creat Clear Calc Estimated GFR Random Glucose (60-115) mg/dL Lactic Acid 2.0 (0.5-2.0) mmol/L Calcium (8.4-10.2) mg/dL Magnesium (1.6-2.6) mg/dL Total Bilirubin (0.0-1.0) mg/dL Direct Bilirubin (0.0-0.5) mg/dL AST (5-31) U/L ALT (0-31) U/L Alkaline Phosphatase (39-117) U/L Troponin I High Sens 7.2 (<3.5-17.0) ng/L B-Natriuretic Peptide 28 (<100) pg/mL Total Protein (6.5-8.0) g/dL Albumin (3.5-5.0) g/dL Procalcitonin ng/mL COVID-19 (JENNIFER) (Negative) COVID-19 Clin Com Influenza Type A (GABRIELA) (Negative) Influenza Type B (GABRIELA) (Negative) Influenza A & B Note 03/21/22 03/21/22 03/21/22 Range/Units 13:07 13:07 13:07 WBC (4.8-10.8) X10*3/uL RBC (4.20-5.50) X10*6/uL Hgb (12.0-16.0) g/dl Hct (37.0-47.0) % MCV (80.0-98.0) fL MCH (27.0-33.0) pg MCHC (31.0-35.0) g/dl RDW (11.0-16.0) % Plt Count (160-400) X10*3/uL MPV (9.4-12.3) fL Immature Gran % (Auto) (0.0-0.4) % Neut % (Auto) (45-73) % Lymph % (Auto) (20-40) % [place] % (Auto) (2-11) % Eos % (Auto) (0-4) % Baso % (Auto) (0-2) % Lymph # (Auto) (1.2-4.9) X10*3/uL [place] # (Auto) (0.1-1.2) X10*3/uL Eos # (Auto) (0.0-0.4) X10*3/uL Baso # (Auto) (0.0-0.2) X10*3/uL Abs Immat Gran (auto) (0.00-0.03) X10*3/uL Absolute Neuts (auto) (2.0-8.3) x10*3/uL Absolute Nucleated RBC (0.0-0.012) X10*3/uL Nucleated RBC % (auto) (0.0-0.2) /100WBC PT (10.0-13.1) SEC INR (0.9-1.1) APTT (26.0-36.4) SEC D-Dimer High Sensitivty NG/ML Sodium (135-145) mmol/L Potassium (3.3-5.1) mmol/L Chloride (96-108) mmol/L Carbon Dioxide (22-29) mmol/L Anion Gap (12-20) BUN (9-16) mg/dL Creatinine (0.5-1.4) mg/dL Estim Creat Clear Calc Estimated GFR Random Glucose (60-115) mg/dL Lactic Acid (0.5-2.0) mmol/L Calcium (8.4-10.2) mg/dL Magnesium (1.6-2.6) mg/dL Total Bilirubin (0.0-1.0) mg/dL Direct Bilirubin (0.0-0.5) mg/dL AST (5-31) U/L ALT (0-31) U/L Alkaline Phosphatase (39-117) U/L Troponin I High Sens (<3.5-17.0) ng/L B-Natriuretic Peptide (<100) pg/mL Total Protein (6.5-8.0) g/dL Albumin (3.5-5.0) g/dL Procalcitonin 0.10 ng/mL COVID-19 (JENNIFER) Negative (Negative) COVID-19 Clin Com See Note Influenza Type A (GABRIELA) Negative (Negative) Influenza Type B (GABRIELA) Negative (Negative) Influenza A & B Note See Note ECG Data Attestation: I personally reviewed and interpreted this ECG as follows: ECG interpretation date: 03/21/22 ECG interpretation time: 16:53 Prior ECG tracings: available for review Interpretation: Sinus tachycardia, heart rate 107 beats per minute, right bundle branch block, old. No ST segment elevations or depressions. Discharge Plan Discharge Clinical Impression: Acute exacerbation of chronic obstructive pulmonary disease Patient Disposition: Home, Self-Care Instructions: Emphysema (ED), COPD (Chronic Obstructive Pulmonary Disease) (ED) Additional Instructions: Your CT scan today showed moderate emphysema changes, but no evidence of pneumonia or blood clot. It did show an enlarged lymph node which his concerning for a possible cancer. Recommend following up with your primary care for additional imaging of your abdomen. Your EKG did not show any evidence of a heart attack in your heart enzyme was reassuring. Your being treated for a COPD exacerbation. Take the prescribed medications as directed. Take 50 mg of prednisone x 5 days and then go back to your usual dosing. Take the prescribed antibiotic 2 times a day for 1 week. Recommend he taking Mucinex 2 times a day for 5 days. Use your nebulizer treatments every 4 hours for the next 48 hours, then decrease to every 6 hours. Follow-up with your primary care doctor and your lung doctor. Do your best to continue to cut back on smoking, quitting is important for your health. If you develop new or worsening symptoms call 911 or come back to the ER for further evaluation. Prescriptions: New prednisone 50 mg tablet 50 mg PO DAILY Qty: 5 0RF doxycycline hyclate 100 mg tablet 100 mg PO BID Qty: 14 0RF No Action topiramate 100 mg tablet 100 mg PO BID Qty: 180 3RF (DME) lancets [FreeStyle Lancets] 28 gauge misc See Rx Instructions .Route Qty: 100 3RF Rx Instructions: test blood sugar once a day ursodiol 500 mg tablet 500 mg PO BID Qty: 90 2RF (DME) FreeStyle Lite Strips Strip See Rx Instructions .Route Qty: 100 3RF Rx Instructions: test once a day nystatin 100,000 unit/gram powder 1 appl topical TID Qty: 60 3RF lisinopril 2.5 mg tablet 2.5 mg PO BEDTIME Qty: 90 3RF acetaminophen [Tylenol] 325 mg tablet 325 mg PO Q6H PRN (Reason: pain) Qty: 90 0RF cyanocobalamin (vitamin B-12) 1,000 mcg tablet 2,000 mcg PO BEDTIME Qty: 180 3RF gabapentin 100 mg capsule 200 mg PO BID Qty: 360 3RF Trelegy Ellipta 100-62.5-25 mcg blister with device 1 inh inhalation DAILY Qty: 180 3RF albuterol sulfate 2.5 mg /3 mL (0.083 %) solution for nebulization 2.5 mg inhalation Q4-6H PRN (Reason: for wheezing) Qty: 180 0RF nitroglycerin 0.4 mg tablet, sublingual 1 tab sublingual NEEDED atorvastatin 80 mg tablet 80 mg PO BEDTIME aspirin 81 mg tablet,chewable 1 tab PO BEDTIME cholecalciferol (vitamin D3) 25 mcg (1,000 unit) tablet 25 mcg PO BEDTIME prednisone 20 mg tablet 40 mg PO DAILY Qty: 6 0RF benzonatate 100 mg capsule 100 mg PO TID PRN (Reason: cough) Qty: 14 0RF nicotine (polacrilex) 2 mg lozenge 2 mg buccal Q4-8H PRN (Reason: nicotine cravings) Qty: 72 0RF isosorbide mononitrate 30 mg tablet extended release 24 hr 30 mg PO DAILY metformin 750 mg tablet extended release 24 hr 750 mg PO DAILY Qty: 90 2RF amlodipine 5 mg tablet 5 mg PO DAILY (DME) lancets [TRUEplus Lancets] 33 gauge misc See Rx Instructions .ROUTE DAILY Qty: 100 Rx Instructions: As directed zolpidem 5 mg tablet 5 mg PO BEDTIME PRN (Reason: Insomnia) cetirizine [Zyrtec] 10 mg tablet 10 mg PO DAILY Qty: 30 6RF albuterol sulfate 90 mcg/actuation HFA aerosol inhaler 2 puff inhalation Q4H PRN (Reason: shortness of breath or wheezing) Qty: 8.5 6RF multivitamin [Daily Multi-Vitamin] Tablet 1 tab PO BEDTIME prednisone 5 mg tablet 5 mg PO BID 30 Days Qty: 60 2RF Referrals: [facility] [place] [facility] [Provider Group] Linda Matthews MD [Primary Care Provider] -
[2022-03-21 12:53] VITALS: PULSE 105; RESP 20; O2SAT 94
[2022-03-21] MEDS: Albuterol/Iprat 2.5/0.5MG 3 ML AMPUL.NEB INHALE (12:53)
[2022-03-21 13:15] LABS: MANUAL DIFF FLAG NO
[2022-03-21 13:20] LABS: Basophils Absolute Auto 0.1 X10*3/uL (0.0-0.2); Basophils Percent Auto 0.9 % (0-2); Eosinophils Absolute Auto 0.3 X10*3/uL (0.0-0.4); Eosinophils Percent Auto 2.9 % (0-4); Hematocrit 39.4 % (37.0-47.0); Hemoglobin 11.7 g/dl (12.0-16.0); Imm Gran Abs Auto 0.12 X10*3/uL (0.00-0.03); Lymphocytes Absolute Auto 3.2 X10*3/uL (1.2-4.9); Lymphocytes Percent Auto 27.5 % (20-40); Mean Corpuscular HGB Conc 29.7 g/dl (31.0-35.0); Mean Corpuscular Hemoglobin 23.9 pg (27.0-33.0); Mean Corpuscular Volume 80.6 fL (80.0-98.0); Mean Platelet Volume 11.3 fL (9.4-12.3); Monocytes Percent Auto 8.1 % (2-11); Neutrophils Percent Auto 59.6 % (45-73); Platelet Count 306 X10*3/uL (160-400); Red Blood Count 4.89 X10*6/uL (4.20-5.50); Red Cell Distribution Width 16.5 % (11.0-16.0); White Blood Count 11.8 X10*3/uL (4.8-10.8)
[2022-03-21 13:25] LABS: INTERNATIONAL NORM RATIO 0.9 (0.9-1.1); Prothrombin Time 10.2 SEC (10.0-13.1)
[2022-03-21 13:27] LABS: D Dimer High Sensitivity 667 NG/ML
[2022-03-21 13:28] LABS: Partial Thromboplastin Time 27.9 SEC (26.0-36.4)
[2022-03-21 13:38] LABS: COVID-19 Test Negative (Negative); IDNOW Serial# 16C4AD1C
[2022-03-21 13:39] LABS: Alanine Aminotransferase 31 U/L (0-31); Albumin Level 3.8 g/dL (3.5-5.0); Alkaline Phosphatase 153 U/L (39-117); Anion Gap 18 (12-20); Aspartate Amino Transferase 32 U/L (5-31); Bilirubin Direct < 0.2 mg/dL (0.0-0.5); Bilirubin Total 0.2 mg/dL (0.0-1.0); Blood Urea Nitrogen 7 mg/dL (9-16); Calcium 9.4 mg/dL (8.4-10.2); Carbon Dioxide 23 mmol/L (22-29); Chloride 104 mmol/L (96-108); Creatinine Clr Calc Pharmacy 50.3; Estimated Glomerular Filt Rate > 60; Glucose Random 126 mg/dL (60-115); Influenza A Negative (Negative); Influenza B2 Negative (Negative); Potassium 4.6 mmol/L (3.3-5.1); Sodium 140 mmol/L (135-145); Total Protein 7.4 g/dL (6.5-8.0)
[2022-03-21] MEDS: Doxycycline Hyclate 100 MG in 0.9 % Sodium Chloride 250 ML 166.67 MG IV (13:41)
[2022-03-21] MEDS: methylPREDNISolone Sod Succ 125 MG/2 ML VIAL 60 MG IVPUSH (13:42)
[2022-03-21 13:47] LABS: B Type Natriuretic Peptide 28 pg/mL (<100)
[2022-03-21] MEDS: 0.9 % Sodium Chloride 1,000 ML 999 ML IVCONT (13:55)
[2022-03-21 14:39] LABS: Troponin-I High Sensitivity 7.2 ng/L (<3.5-17.0)
[2022-03-21] MEDS: iohexoL 350 MG/ML 100 ML INFUS..BTL IV (15:14)
[2022-03-21 15:58] VITALS: BP 138/60; PULSE 94; RESP 17; TEMP 36.7; O2SAT 96
[2022-03-21 17:29] LABS: Appearance Urine Clear; Color Urine Yellow; Glucose Urine UA Negative (Negative); Leukocyte Esterase Urine Moderate (2+) (Negative); Nitrite Urine Negative (Negative); PH 7.5 (5.0-9.0); Specific Gravity - Urine 1.025 (1.005-1.025); UMIC TRIGGER UACC YES; Urine Blood Negative (Negative); Urine Ketones Negative (Negative); Urine Protein Negative (Neg-Trace)
[2022-03-21 17:31] LABS: Bacteria Urine Trace (None Seen); Hyaline Casts Urine 0-2 /LPF (0-2); RBC Urine 0-2 /HPF (0-2); UACC Culture Trigger YES
== END 2022-03-21 17:38 | disposition home or self-care (01) ==
PROVIDERS: Physician Assistant; Emergency Provider Emergency Medicine; PCP Internal Medicine
DX: J44.1 Chronic obstructive pulmonary disease with (acute) exacerbation (principal); R06.02 Shortness of breath; R07.89 Other chest pain; R05.9 Cough, unspecified; I25.10 Atherosclerotic heart disease of native coronary artery without angina pectoris; F17.210 Nicotine dependence, cigarettes, uncomplicated; Z20.822 Contact with and (suspected) exposure to COVID-19; Z79.899 Other long term (current) drug therapy; Z71.6 Tobacco abuse counseling
CPT/HCPCS: 36415; 71045; 71275; 80048; 80076; 81001; 83605; 83735; 83880; 84145; 84484; 85025; 85379; 85610; 85730; 87040; 87086; 87502; 87635; 93005; 94640; 96365; 96375; 99284; J2930; Q9967

== ENCOUNTER 2022-03-28 12:29 | Outpatient (REF) | payer MEDICARE, OTHER, SELFPAY ==
--- NOTE | 2022-03-28 15:18 | PFT_ITS ---
FLOWS: FEV1 52% of predicted at 0.99 L. FVC 90% of predicted at 2.27 L. FEV1 to FVC ratio of 0.43. No bronchodilator response except in small to medium airways. LUNG VOLUMES: Total lung capacity 93% of predicted at 4.31 L. Residual volume 102% of predicted at 2.16 L. Slow vital capacity 86% of predicted at 2.15 L. Expiratory reserve volume 144% of predicted at 0.74 L. Diffusion capacity is moderately decreased, diffusion capacity adjust to being mildly decreased after correction for alveolar ventilation. In comparison to pulmonary function test from March of 2019, FEV1 and FVC have been without significant changes; total lung capacity has increased by 0.53 L; residual volume has increased by 0.49 L; diffusion capacity has decreased by 0.35 mL/minute per mmHg. IMPRESSION: Moderate obstructive ventilatory defect with no bronchodilator response except in small to medium airways. Decreased diffusion capacity suggests emphysema. MD CHANDRIKA Grande/MODL / [id number]
== END 2022-03-28 12:30 | disposition home or self-care (01) ==
LOC: HO.RESP 12:29
PROVIDERS: PCP Internal Medicine; Visit Provider Internal Medicine
DX: J44.9 Chronic obstructive pulmonary disease, unspecified (principal); F17.210 Nicotine dependence, cigarettes, uncomplicated; Z79.899 Other long term (current) drug therapy
CPT/HCPCS: 94060; 94727; 94729

== ENCOUNTER 2022-03-30 20:39 | Emergency (ER) | payer MEDICARE, OTHER, SELFPAY ==
--- NOTE | 2022-03-30 | ECG_ITS ---
Test Reason : CHEST PAIN Blood Pressure : / mmHG Vent. Rate : 113 BPM Atrial Rate : 113 BPM P-R Int : 122 ms QRS Dur : 124 ms QT Int : 362 ms P-R-T Axes : -12 087 -04 degrees QTc Int : 496 ms Sinus tachycardia Right bundle branch block T wave abnormality, consider inferior ischemia Abnormal ECG When compared with ECG of 21-MAR-2022 12:51, No significant change was found Referred By: Xu Pringle Electronically Signed By:JOE HUNTER MD
--- NOTE | ~2022-03-30 | XR_ITS ---
EXAMINATION: PORTABLE CHEST 1 VIEW CLINICAL INFORMATION: cp . COMPARISON: 03/21/2022. TECHNIQUE: Portable frontal view of the chest was obtained. FINDINGS: The lungs are well expanded. No focal infiltrate, effusion, edema, or pneumothorax. Cardiac and mediastinal silhouettes are within normal limits for size with vascular calcification in the aorta. No acute bony abnormality seen. Cervical spine hardware partially visualized XR/XR chest 1V IMPRESSION: No evidence of acute disease.
[2022-03-30 20:42] VITALS: BP 207/183; PULSE 117; TEMP 37.2; O2SAT 98; BMI 27.6
--- NOTE | 2022-03-30 20:47 | ED.CHESTPAIN ---
HPI - Chest Pain General Chief Complaint: Chest Pain Stated Complaint: CP and Difficulty Breathing Time Seen by Provider: 03/30/22 20:43 Source: patient Mode of arrival: EMS Limitations: no limitations History of Present Illness HPI narrative: Patient history of COPD, on chronic prednisone, diabetes, chronic smoker, CAD status post PTCA LAD comes here for mid chest pain started around 20:00 while at rest patient felt pressure-like feeling continued for about half an hour patient took 2 nitroglycerin and EMS gave her 324 mg of aspirin by the time patient came to the ER pain has decreased but still feels heaviness no radiation of pain feel slight short of breath after the pain started with wheezing no leg edema no calf tenderness patient was seen here on 03/21 for shortness of breath had elevated D-dimer and CTA was negative Related Data Home Medications Medication Instructions Recorded Confirmed multivitamin (Daily Multi-Vitamin 1 tab PO BEDTIME 12/25/20 02/11/22 tablet) aspirin 81 mg chewable tablet 1 tab PO BEDTIME 09/11/21 02/11/22 atorvastatin 80 mg tablet 80 mg PO BEDTIME 09/11/21 02/11/22 cholecalciferol (vitamin D3) 25 25 mcg PO BEDTIME 09/11/21 02/11/22 mcg (1,000 unit) tablet nitroglycerin 0.4 mg sublingual 1 tab sublingual NEEDED angina 09/11/21 02/11/22 tablet isosorbide mononitrate 30 mg 30 mg PO DAILY 09/25/21 02/11/22 tablet,extended release 24 hr zolpidem 5 mg tablet 5 mg PO BEDTIME PRN Insomnia 11/06/21 02/11/22 amlodipine 5 mg tablet 5 mg PO DAILY 11/20/21 02/11/22 lancets 33 gauge (TRUEplus Lancets) #100 ea 11/20/21 02/11/22 Previous Rx's Medication Instructions Recorded topiramate 100 mg tablet 100 mg PO BID #180 tabs 01/08/21 lancets 28 gauge (FreeStyle #100 ea 08/07/21 Lancets) ursodiol 500 mg tablet 500 mg PO BID #90 tabs 08/21/21 blood sugar diagnostic (FreeStyle #100 ea 09/16/21 Lite Strips) metformin 750 mg tablet,extended 750 mg PO DAILY #90 tabs 09/25/21 release 24 hr cetirizine 10 mg tablet (Zyrtec) 10 mg PO DAILY #30 tabs 11/06/21 benzonatate 100 mg capsule 100 mg PO TID PRN cough #14 caps 01/08/22 nicotine (polacrilex) 2 mg buccal 2 mg buccal Q4-8H PRN nicotine 01/08/22 lozenge cravings #72 ea prednisone 20 mg tablet 40 mg PO DAILY #6 tabs 01/08/22 albuterol sulfate 90 mcg/actuation 2 puff inhalation Q4H PRN 01/16/22 aerosol inhaler shortness of breath or wheezing #8.5 grams nystatin 100,000 unit/gram topical 1 appl topical TID #60 grams 01/17/22 powder prednisone 5 mg tablet 5 mg PO BID SEVERE COPD 30 days 02/11/22 #60 tabs acetaminophen 325 mg tablet 325 mg PO Q6H PRN pain #90 tabs 02/13/22 (Tylenol) cyanocobalamin (vitamin B-12) 2,000 mcg PO BEDTIME #180 tabs 02/13/22 1,000 mcg tablet fluticasone fur. 100 mcg-umeclid 1 inh inhalation DAILY #180 ea 02/13/22 62.5 mcg-vilant 25 mcg inhalat.powder (Trelegy Ellipta) gabapentin 100 mg capsule 200 mg PO BID #360 caps 02/13/22 lisinopril 2.5 mg tablet 2.5 mg PO BEDTIME #90 tabs 02/13/22 albuterol sulfate 2.5 mg/3 mL 2.5 mg (3 mL) inhalation Q4-6H PRN 03/07/22 (0.083 %) solution for nebulization for wheezing #180 mL doxycycline hyclate 100 mg tablet 100 mg PO BID #14 tabs 03/21/22 prednisone 50 mg tablet 50 mg PO DAILY #5 tabs 03/21/22 Allergies Allergy/AdvReac Type Severity Reaction Status Date / Time amoxicillin [AMOXICILLIN] Allergy Mild DIARRHEA Verified 03/05/22 16:17 Darvocet A500 Allergy Unknown upset Verified 03/05/22 16:17 stomach melatonin Allergy Unknown Nausea and Verified 03/05/22 16:17 Vomiting oxycodone [From PERCOCET] Allergy Unknown NAUSEA,VOMI Verified 03/05/22 16:17 TING Propoxyphene HCl Allergy Unknown upset Verified 03/05/22 16:17 stomach influenza virus vaccine, AdvReac Intermediate NAUSEA,DIAR Verified 03/05/22 16:17 specific WU [FLU VACCINE] lactose [LACTOSE] AdvReac Intermediate GI UPSET Verified 03/05/22 16:17 metronidazole [From FLAGYL] AdvReac Intermediate NAUSEA & Verified 03/05/22 16:17 VOMITING Sulfa (Sulfonamide AdvReac Intermediate EYE DROPS Verified 03/05/22 16:17 Antibiotics) (ONLY)-IRITIS Review of Systems Review of Systems: Yes all other systems are reviewed and are negative [facility] Past Medical History Medical History Anxiety CAD (coronary artery disease) Cervical stenosis of spine COPD (chronic obstructive pulmonary disease) COPD (chronic obstructive pulmonary disease) Depression Diabetic polyneuropathy associated with type 2 diabetes mellitus DM type 2 (diabetes mellitus, type 2) Elevated BUN History of smoking at least 1 pack per day for at least 30 years HTN (hypertension) Hyperlipidemia Left leg swelling Low vitamin D level Migraine headache Neck pain Nonalcoholic steatohepatitis (CHRISTINE) Pulmonary nodule Smoker Smoker Smoker Vertigo Vitamin B 12 deficiency Vitamin B12 deficiency Surgical History Fusion of spine of cervical region History of carpal tunnel release History of hysterectomy Family History Family History Mother CVD (cardiovascular disease) CVA (cerebral vascular accident) Father CVD (cardiovascular disease) Social History Social History Household Members: Other Household Members Other:: roommate Housing: House Do you presently have visiting nurse or other home services: No Alcohol intake: never Patient Tobacco Use Status: Current someday Tobacco user Tobacco use type: Cigarette Cigarettes Per Day: 3 Years Smoked: 62 e-Cigarette/Vaping Use: Never Used Second Hand Smoke Exposure: No Advance Directives: Yes Advance Directives on File: Yes Advance Directives Date on File: 11/14/21 service: No Current occupational status: retired Current occupation: Right Handed Cognitive needs: No Hearing needs: No Vision needs: Yes Physical Exam Vital Signs: Vital Signs: Last Vital Signs Temp 98.0 F 03/30/22 23:53 Pulse 95 03/30/22 23:53 Resp 20 03/30/22 23:53 BP 119/47 L 03/30/22 23:53 Pulse Ox 95 03/30/22 23:53 O2 Del Method 03/30/22 23:53 BMI result Body Mass Index 27.6 Appearance: Alert. Oriented X3. No acute distress. Eyes: No pallor or icterus ENT: Pharynx normal. Oral Mucosa moist Neck: Normal inspection. Neck supple. CVS: Normal heart rate and rhythm. Pulses normal. Respiratory: Mild respiratory distress. Equal air entry bilateral, bilateral wheezing no crackles Abdomen: Soft and nontender. Bowel sounds are present, no mass palpable, no CVA tenderness Skin: Skin warm and dry. Normal skin color. Normal skin turgor. Extremities: No lower extremity edema. No calf tenderness Neuro: Oriented X 3. No motor deficit. No sensory deficit.No cerebellar signs , cranial nerves II-XII intact Medications Administered Discontinued Medications Generic Name Dose Route Start Last Admin Trade Name Yanq PRN Reason Stop Dose Admin Albuterol Sulfate 2.5 mg/ 0 mg 03/30/22 20:57 03/30/22 21:08 Albuterol/Ipratropium 3 ml INHALE 03/30/22 20:58 1 each ONCE ONE Administration Ketorolac Tromethamine 30 mg 03/31/22 01:40 03/31/22 01:44 Ketorolac Tromethamine 30 Mg/Ml Vial IVPUSH 03/31/22 01:41 30 mg ONCE ONE Administration MDM - Chest Pain MDM Narrative Medical decision making narrative: Patient with chest pain with multiple ED visits had a CTA chest last week for same and elevated D-dimer no leg swelling or pain no acute EKG changes no significant delta change in troponin 3 sets were done. Will discharge patient home advised to continue her cardiac medications and follow with coding and reimbursement specialist Differential Diagnosis Differential diagnosis: Likely pneumothorax, unstable angina pectoris and atypical chest pain Medical Records Data Attestation: I reviewed the patient's medical records. Lab Data Attestation: I reviewed the patient's lab results. Result diagrams: 03/30/22 21:00 03/30/22 21:00 Labs: Lab Results 03/30/22 03/30/22 03/30/22 Range/Units 21:00 21:00 21:00 WBC 15.4 H (4.8-10.8) X10*3/uL RBC 4.71 (4.20-5.50) X10*6/uL Hgb 11.4 L (12.0-16.0) g/dl Hct 37.9 (37.0-47.0) % MCV 80.5 (80.0-98.0) fL MCH 24.2 L (27.0-33.0) pg MCHC 30.1 L (31.0-35.0) g/dl RDW 16.9 H (11.0-16.0) % Plt Count 284 (160-400) X10*3/uL MPV 11.1 (9.4-12.3) fL Immature Gran % (Auto) 1.0 H (0.0-0.4) % Neut % (Auto) 56.7 (45-73) % Lymph % (Auto) 29.2 (20-40) % [place] % (Auto) 10.2 (2-11) % Eos % (Auto) 2.4 (0-4) % Baso % (Auto) 0.5 (0-2) % Lymph # (Auto) 4.5 (1.2-4.9) X10*3/uL [place] # (Auto) 1.6 H (0.1-1.2) X10*3/uL Eos # (Auto) 0.4 (0.0-0.4) X10*3/uL Baso # (Auto) 0.1 (0.0-0.2) X10*3/uL Abs Immat Gran (auto) 0.15 H (0.00-0.03) X10*3/uL Absolute Neuts (auto) 8.7 H (2.0-8.3) x10*3/uL Absolute Nucleated RBC 0.000 (0.0-0.012) X10*3/uL Nucleated RBC % (auto) 0.0 (0.0-0.2) /100WBC Smear Tech's Comments VERIFIED PT (10.0-13.1) SEC INR (0.9-1.1) D-Dimer High Sensitivty NG/ML Sodium 137 (135-145) mmol/L Potassium 4.5 (3.3-5.1) mmol/L Chloride 105 (96-108) mmol/L Carbon Dioxide 22 (22-29) mmol/L Anion Gap 15 (12-20) BUN 15 (9-16) mg/dL Creatinine 1.28 (0.5-1.4) mg/dL Estim Creat Clear Calc 34.1 Estimated GFR 41 Random Glucose 301 H (60-115) mg/dL Calcium 8.7 D (8.4-10.2) mg/dL Total Bilirubin 0.3 (0.0-1.0) mg/dL AST 19 (5-31) U/L ALT 21 (0-31) U/L Alkaline Phosphatase 113 (39-117) U/L Troponin I High Sens 10.0 (<3.5-17.0) ng/L B-Natriuretic Peptide (<100) pg/mL Total Protein 6.4 L (6.5-8.0) g/dL Albumin 3.4 L (3.5-5.0) g/dL COVID-19 (JENNIFER) (Negative) COVID-19 Clin Com 03/30/22 03/30/22 03/30/22 Range/Units 21:00 21:00 21:00 WBC (4.8-10.8) X10*3/uL RBC (4.20-5.50) X10*6/uL Hgb (12.0-16.0) g/dl Hct (37.0-47.0) % MCV (80.0-98.0) fL MCH (27.0-33.0) pg MCHC (31.0-35.0) g/dl RDW (11.0-16.0) % Plt Count (160-400) X10*3/uL MPV (9.4-12.3) fL Immature Gran % (Auto) (0.0-0.4) % Neut % (Auto) (45-73) % Lymph % (Auto) (20-40) % [place] % (Auto) (2-11) % Eos % (Auto) (0-4) % Baso % (Auto) (0-2) % Lymph # (Auto) (1.2-4.9) X10*3/uL [place] # (Auto) (0.1-1.2) X10*3/uL Eos # (Auto) (0.0-0.4) X10*3/uL Baso # (Auto) (0.0-0.2) X10*3/uL Abs Immat Gran (auto) (0.00-0.03) X10*3/uL Absolute Neuts (auto) (2.0-8.3) x10*3/uL Absolute Nucleated RBC (0.0-0.012) X10*3/uL Nucleated RBC % (auto) (0.0-0.2) /100WBC Smear Tech's Comments PT 11.3 (10.0-13.1) SEC INR 1.0 (0.9-1.1) D-Dimer High Sensitivty 578 NG/ML Sodium (135-145) mmol/L Potassium (3.3-5.1) mmol/L Chloride (96-108) mmol/L Carbon Dioxide (22-29) mmol/L Anion Gap (12-20) BUN (9-16) mg/dL Creatinine (0.5-1.4) mg/dL Estim Creat Clear Calc Estimated GFR Random Glucose (60-115) mg/dL Calcium (8.4-10.2) mg/dL Total Bilirubin (0.0-1.0) mg/dL AST (5-31) U/L ALT (0-31) U/L Alkaline Phosphatase (39-117) U/L Troponin I High Sens (<3.5-17.0) ng/L B-Natriuretic Peptide 40 (<100) pg/mL Total Protein (6.5-8.0) g/dL Albumin (3.5-5.0) g/dL COVID-19 (JENNIFER) Negative (Negative) COVID-19 Clin Com See Note 03/30/22 03/31/22 Range/Units 23:27 01:10 WBC (4.8-10.8) X10*3/uL RBC (4.20-5.50) X10*6/uL Hgb (12.0-16.0) g/dl Hct (37.0-47.0) % MCV (80.0-98.0) fL MCH (27.0-33.0) pg MCHC (31.0-35.0) g/dl RDW (11.0-16.0) % Plt Count (160-400) X10*3/uL MPV (9.4-12.3) fL Immature Gran % (Auto) (0.0-0.4) % Neut % (Auto) (45-73) % Lymph % (Auto) (20-40) % [place] % (Auto) (2-11) % Eos % (Auto) (0-4) % Baso % (Auto) (0-2) % Lymph # (Auto) (1.2-4.9) X10*3/uL [place] # (Auto) (0.1-1.2) X10*3/uL Eos # (Auto) (0.0-0.4) X10*3/uL Baso # (Auto) (0.0-0.2) X10*3/uL Abs Immat Gran (auto) (0.00-0.03) X10*3/uL Absolute Neuts (auto) (2.0-8.3) x10*3/uL Absolute Nucleated RBC (0.0-0.012) X10*3/uL Nucleated RBC % (auto) (0.0-0.2) /100WBC Smear Tech's Comments PT (10.0-13.1) SEC INR (0.9-1.1) D-Dimer High Sensitivty NG/ML Sodium (135-145) mmol/L Potassium (3.3-5.1) mmol/L Chloride (96-108) mmol/L Carbon Dioxide (22-29) mmol/L Anion Gap (12-20) BUN (9-16) mg/dL Creatinine (0.5-1.4) mg/dL Estim Creat Clear Calc Estimated GFR Random Glucose (60-115) mg/dL Calcium (8.4-10.2) mg/dL Total Bilirubin (0.0-1.0) mg/dL AST (5-31) U/L ALT (0-31) U/L Alkaline Phosphatase (39-117) U/L Troponin I High Sens 13.8 D 13.1 (<3.5-17.0) ng/L B-Natriuretic Peptide (<100) pg/mL Total Protein (6.5-8.0) g/dL Albumin (3.5-5.0) g/dL COVID-19 (JENNIFER) (Negative) COVID-19 Clin Com ECG Data ECG #1: Attestation: I personally reviewed and interpreted this ECG as follows: Interpretation: Normal sinus rhythm right bundle bunch block nonspecific T-wave changes no acute ST-T changes no change from the previous EKG Critical Care Time Critical Care Time Critical Care Time: Yes Total Critical Care Time: 35 Attestation: The patient was critically ill with a high probability of imminent or life threatening deterioration. I spent greater than 40 minutes of discontinuous time evaluating the patient,delivering critical care at the bedside, discussing and evaluating pertinent data with consultants. Critical care time does not include time spent performing separately billable procedures or teaching. Total time spent performing critical care was 35 minutes. Discharge Plan Discharge Clinical Impression: Chest pain, COPD (chronic obstructive pulmonary disease), Smoker Patient Disposition: Home, Self-Care Instructions: Chest Pain (ED), COPD (Chronic Obstructive Pulmonary Disease) (ED) Additional Instructions: Continue heart medications Continue inhaler/nebulizing treatment Follow with coding and reimbursement specialist Report to the ER if worsening of the chest pain Prescriptions: No Action topiramate 100 mg tablet 100 mg PO BID Qty: 180 3RF (DME) lancets [FreeStyle Lancets] 28 gauge misc See Rx Instructions .Route Qty: 100 3RF Rx Instructions: test blood sugar once a day ursodiol 500 mg tablet 500 mg PO BID Qty: 90 2RF (DME) FreeStyle Lite Strips Strip See Rx Instructions .Route Qty: 100 3RF Rx Instructions: test once a day nystatin 100,000 unit/gram powder 1 appl topical TID Qty: 60 3RF lisinopril 2.5 mg tablet 2.5 mg PO BEDTIME Qty: 90 3RF acetaminophen [Tylenol] 325 mg tablet 325 mg PO Q6H PRN (Reason: pain) Qty: 90 0RF cyanocobalamin (vitamin B-12) 1,000 mcg tablet 2,000 mcg PO BEDTIME Qty: 180 3RF gabapentin 100 mg capsule 200 mg PO BID Qty: 360 3RF Trelegy Ellipta 100-62.5-25 mcg blister with device 1 inh inhalation DAILY Qty: 180 3RF albuterol sulfate 2.5 mg /3 mL (0.083 %) solution for nebulization 2.5 mg inhalation Q4-6H PRN (Reason: for wheezing) Qty: 180 0RF nitroglycerin 0.4 mg tablet, sublingual 1 tab sublingual NEEDED atorvastatin 80 mg tablet 80 mg PO BEDTIME aspirin 81 mg tablet,chewable 1 tab PO BEDTIME cholecalciferol (vitamin D3) 25 mcg (1,000 unit) tablet 25 mcg PO BEDTIME prednisone 20 mg tablet 40 mg PO DAILY Qty: 6 0RF benzonatate 100 mg capsule 100 mg PO TID PRN (Reason: cough) Qty: 14 0RF nicotine (polacrilex) 2 mg lozenge 2 mg buccal Q4-8H PRN (Reason: nicotine cravings) Qty: 72 0RF prednisone 50 mg tablet 50 mg PO DAILY Qty: 5 0RF doxycycline hyclate 100 mg tablet 100 mg PO BID Qty: 14 0RF isosorbide mononitrate 30 mg tablet extended release 24 hr 30 mg PO DAILY metformin 750 mg tablet extended release 24 hr 750 mg PO DAILY Qty: 90 2RF amlodipine 5 mg tablet 5 mg PO DAILY (DME) lancets [TRUEplus Lancets] 33 gauge misc See Rx Instructions .ROUTE DAILY Qty: 100 Rx Instructions: As directed zolpidem 5 mg tablet 5 mg PO BEDTIME PRN (Reason: Insomnia) cetirizine [Zyrtec] 10 mg tablet 10 mg PO DAILY Qty: 30 6RF albuterol sulfate 90 mcg/actuation HFA aerosol inhaler 2 puff inhalation Q4H PRN (Reason: shortness of breath or wheezing) Qty: 8.5 6RF multivitamin [Daily Multi-Vitamin] Tablet 1 tab PO BEDTIME prednisone 5 mg tablet 5 mg PO BID 30 Days Qty: 60 2RF
[2022-03-30] MEDS: Albuterol Sulfate 2.5 MG, Albuterol/Iprat 2.5/0.5MG 3 ML 3 ML INHALE (21:08)
[2022-03-30 21:11] VITALS: PULSE 20; RESP 21; O2SAT 94
[2022-03-30 21:27] LABS: Basophils Absolute Auto 0.1 X10*3/uL (0.0-0.2); Basophils Percent Auto 0.5 % (0-2); Eosinophils Absolute Auto 0.4 X10*3/uL (0.0-0.4); Eosinophils Percent Auto 2.4 % (0-4); Hematocrit 37.9 % (37.0-47.0); Hemoglobin 11.4 g/dl (12.0-16.0); Imm Gran Abs Auto 0.15 X10*3/uL (0.00-0.03); Lymphocytes Absolute Auto 4.5 X10*3/uL (1.2-4.9); Lymphocytes Percent Auto 29.2 % (20-40); MANUAL DIFF FLAG SCAN; Mean Corpuscular HGB Conc 30.1 g/dl (31.0-35.0); Mean Corpuscular Hemoglobin 24.2 pg (27.0-33.0); Mean Corpuscular Volume 80.5 fL (80.0-98.0); Mean Platelet Volume 11.1 fL (9.4-12.3); Monocytes Absolute Auto 1.6 X10*3/uL (0.1-1.2); Monocytes Percent Auto 10.2 % (2-11); Neutrophils Absolute Auto 8.7 x10*3/uL (2.0-8.3); Neutrophils Percent Auto 56.7 % (45-73); Platelet Count 284 X10*3/uL (160-400); Red Blood Count 4.71 X10*6/uL (4.20-5.50); Red Cell Distribution Width 16.9 % (11.0-16.0); SCAN SMEAR FLAG 1; White Blood Count 15.4 X10*3/uL (4.8-10.8)
[2022-03-30 21:28] VITALS: BP 87/51; PULSE 106; RESP 36; O2SAT 93
[2022-03-30 21:30] VITALS: BP 87/52; PULSE 112; RESP 20; TEMP 37; O2SAT 92
[2022-03-30 21:32] LABS: Prothrombin Time 11.3 SEC (10.0-13.1)
--- NOTE | 2022-03-30 21:32 | PC.NURSE ---
PT GOT CHANGE INTO HOSPITAL ATTIRE BY THIS PCT ,BUT PT WANT TO KEEP HER PANTS ON .
[2022-03-30 21:34] LABS: D Dimer High Sensitivity 578 NG/ML
[2022-03-30 21:57] LABS: Alanine Aminotransferase 21 U/L (0-31); Albumin Level 3.4 g/dL (3.5-5.0); Alkaline Phosphatase 113 U/L (39-117); Anion Gap 15 (12-20); Aspartate Amino Transferase 19 U/L (5-31); Bilirubin Total 0.3 mg/dL (0.0-1.0); Blood Urea Nitrogen 15 mg/dL (9-16); Calcium 8.7 mg/dL (8.4-10.2); Carbon Dioxide 22 mmol/L (22-29); Chloride 105 mmol/L (96-108); Creatinine Clr Calc Pharmacy 34.1; Estimated Glomerular Filt Rate 41; Glucose Random 301 mg/dL (60-115); Potassium 4.5 mmol/L (3.3-5.1); Sodium 137 mmol/L (135-145); Total Protein 6.4 g/dL (6.5-8.0)
[2022-03-30 22:00] VITALS: BP 115/44; PULSE 100; RESP 16; TEMP 36.9; O2SAT 95
[2022-03-30 22:11] LABS: SLIDE REVIEW VERIFIED
[2022-03-30 22:22] LABS: B Type Natriuretic Peptide 40 pg/mL (<100)
[2022-03-30 22:24] LABS: COVID-19 Test Negative (Negative)
[2022-03-30 23:53] VITALS: BP 119/47; PULSE 95; RESP 20; TEMP 36.7; O2SAT 95
[2022-03-30 23:53] LABS: Troponin-I High Sensitivity 13.8 ng/L (<3.5-17.0)
[2022-03-31 01:39] LABS: Troponin-I High Sensitivity 13.1 ng/L (<3.5-17.0)
[2022-03-31] MEDS: Ketorolac Tromethamine 30 MG/ML VIAL IVPUSH (01:44)
== END 2022-03-31 02:27 | disposition home or self-care (01) ==
PROVIDERS: Emergency Provider Internal Medicine
DX: J44.9 Chronic obstructive pulmonary disease, unspecified (principal); R07.89 Other chest pain; R06.02 Shortness of breath; F17.210 Nicotine dependence, cigarettes, uncomplicated; Z71.6 Tobacco abuse counseling; Z20.822 Contact with and (suspected) exposure to COVID-19; Z79.899 Other long term (current) drug therapy
CPT/HCPCS: 36415; 71045; 80053; 83880; 84484; 85025; 85379; 85610; 87635; 93005; 94640; 96372; 99284; J1885

== ENCOUNTER → 2022-04-17 13:30 | Outpatient (BNVA) | payer MEDICARE, OTHER, SELFPAY | PROVIDERS: PCP Internal Medicine; Visit Provider Internal Medicine | DX: J44.9 Chronic obstructive pulmonary disease, unspecified (principal); R91.1 Solitary pulmonary nodule; F41.9 Anxiety disorder, unspecified; F17.210 Nicotine dependence, cigarettes, uncomplicated; Z79.52 Long term (current) use of systemic steroids; Z79.899 Other long term (current) drug therapy | CPT/HCPCS: 99212 ==

== ENCOUNTER → 2022-05-29 13:47 | Outpatient (BNVA) | payer MEDICARE, MEDICAID, SELFPAY | PROVIDERS: PCP Internal Medicine; Visit Provider Internal Medicine | DX: J44.9 Chronic obstructive pulmonary disease, unspecified (principal); R91.1 Solitary pulmonary nodule; F41.9 Anxiety disorder, unspecified; F17.210 Nicotine dependence, cigarettes, uncomplicated | CPT/HCPCS: 99212 ==

== ENCOUNTER → 2022-07-18 10:37 | Outpatient (BNVA) | payer MEDICARE, OTHER, SELFPAY | PROVIDERS: PCP Internal Medicine; Visit Provider Urology | DX: C67.9 Malignant neoplasm of bladder, unspecified (principal) | CPT/HCPCS: 52000; 99212 ==

== ENCOUNTER 2022-08-08 09:39 | Outpatient (REF) | payer MEDICARE, MEDICAID, SELFPAY ==
--- NOTE | ~2022-08-08 | CT_ITS ---
EXAMINATION: CT ABDOMEN AND PELVIS WITHOUT AND WITH CONTRAST CLINICAL INFORMATION: Malignant neoplasm of bladder. COMPARISON: CTA chest 03/21/2022. TECHNIQUE: Noncontrast CT of the abdomen and pelvis is performed followed by split bolus contrast-enhanced images using 85 mL Omnipaque 350 contrast.? Postcontrast imaging is performed during the combined nephrogram and excretion phase. Sagittal and coronal reformatted images were obtained on the technologist's workstation for both the precontrast and postcontrast phases. This CT examination was performed using dose optimization techniques as appropriate, variously including the following: *Automated exposure control *Adjustment of mA and/or kV according to patient size (this includes techniques or standardized protocols for targeted exams where dose is matched to indication/reason for exam; i.e. extremities or head) *Use of iterative reconstruction technique DLP: 619 mGy-cm FINDINGS: LUNG BASES: There is a 5 mm nodule right lower lobe axial image 3/3, stable compared to previous CT 03/21/2022. There are coronary artery calcifications present. LIVER, GALLBLADDER, AND BILIARY TREE: The liver is enlarged in size measuring 19 cm in length, normal shape, and and hypoattenuation. No focal hepatic lesion or biliary ductal dilatation is present. The gallbladder is unremarkable with no evidence of radiopaque gallstones, gallbladder wall thickening, or obvious pericholecystic inflammatory changes. PANCREAS: Unremarkable. SPLEEN: The spleen is unremarkable. There is a 1.2 cm calcified splenic artery aneurysm. ADRENAL GLANDS: Unremarkable. KIDNEYS AND URETERS: The kidneys are normal in size, shape, and attenuation. No hydronephrosis, hydroureter, or calculi seen.There is a nonenhancing 9 mm probable cyst lower pole right kidney and partially exophytic 7 mm midpole left kidney cyst. There is mild perinephric stranding. BLADDER: Unremarkable. GASTROINTESTINAL TRACT: There is scattered stool and gas seen throughout the colon without distention. There is a large peritoneal mass measuring 5.9 x 6.5 x 7.1 cm on axial image 34/81 and sagittal image 25/11. Second hypodense mass measuring 3.2 x 3.6 cm and 30 Hounsfield units seen on axial image 35/8. There are small additional mesenteric lymph nodes along the lesser curvature of stomach axial image 17/8. ABDOMINAL WALL: There is ill-defined small area in the left abdominal wall likely injection granuloma. LYMPH NODES: There is extensive abnormal lymphadenopathy in the retroperitoneum largest to the left and superior to celiac artery measuring 2.6 cm on axial image 17/8, a smaller lymph node inferior to left renal artery measuring 1.7 cm on axial image 31/8. There is bulky lymphadenopathy in the left internal iliac chain and likely exophytic mass arising off the left bladder with direct extension to the left bladder wall, the peritoneal and into the prostate fossa. There is right inguinal lymphadenopathy as well. In spite of iliac adenopathy there is no hydronephrosis seen. VASCULAR: There is a small splenic artery aneurysm as described above. PELVIC VISCERA: Abnormal bilateral iliac lymphadenopathy. Large mass is seen along the anterior lateral and posterior bladder wall the margins are indistinct. The bladder is small volume and pushed posteriorly. OSSEUS STRUCTURES: There are degenerative disc changes with posterior spondylosis L2-L3, L3-L4, L4-L5 and L5-S1 disc levels. No aggressive lytic or sclerotic process seen. CT/CT urogram IMPRESSION: 1. Large mass arising from the left bladder wall with direct extension into the prostate fossa, left internal iliac chain and the peritoneal cavity. 2. There is extensive retroperitoneal, pelvic and right iliac lymphadenopathy. 3. There are 2 large peritoneal masses in the right mid abdomen. 4. There is no hydronephrosis seen. 5. There is no radiopaque renal calculi or enhancing renal mass seen. 6. There is mild hepatomegaly with no focal lesion seen. 7. There is a small splenic artery aneurysm. 8. There is a right lower lobe pulmonary nodule which is stable compared to CT chest 03/21/2022.
[2022-08-08] MEDS: iohexoL 350 MG/ML 100 ML INFUS..BTL 85 ML IV (10:42)
[2022-08-08 10:58] LABS: Creatinine POC 0.9 mg/dL (0.5-1.4); GFR POC > 60; MANUAL DIFF FLAG NO
[2022-08-08 12:09] LABS: Basophils Absolute Auto 0.1 X10*3/uL (0.0-0.2); Basophils Percent Auto 0.8 % (0-2); Eosinophils Absolute Auto 0.3 X10*3/uL (0.0-0.4); Eosinophils Percent Auto 2.7 % (0-4); Hematocrit 39.2 % (37.0-47.0); Hemoglobin 11.6 g/dl (12.0-16.0); Imm Gran Abs Auto 0.06 X10*3/uL (0.00-0.03); Imm Gran Pct Auto 0.5 % (0.0-0.4); Lymphocytes Absolute Auto 2.8 X10*3/uL (1.2-4.9); Lymphocytes Percent Auto 24.6 % (20-40); Mean Corpuscular HGB Conc 29.6 g/dl (31.0-35.0); Mean Corpuscular Hemoglobin 23.9 pg (27.0-33.0); Mean Corpuscular Volume 80.8 fL (80.0-98.0); Mean Platelet Volume 11.8 fL (9.4-12.3); Monocytes Absolute Auto 0.9 X10*3/uL (0.1-1.2); Monocytes Percent Auto 8.1 % (2-11); Neutrophils Absolute Auto 7.2 x10*3/uL (2.0-8.3); Neutrophils Percent Auto 63.3 % (45-73); Platelet Count 361 X10*3/uL (160-400); Red Blood Count 4.85 X10*6/uL (4.20-5.50); Red Cell Distribution Width 16.9 % (11.0-16.0); White Blood Count 11.3 X10*3/uL (4.8-10.8)
[2022-08-08 12:29] LABS: Estimated Average Glucose 157 mg/dL; Hemoglobin A1c % 7.1 %
[2022-08-08 13:01] LABS: Alanine Aminotransferase 15 U/L (0-31); Albumin Level 3.7 g/dL (3.5-5.0); Alkaline Phosphatase 130 U/L (39-117); Anion Gap 13 (12-20); Aspartate Amino Transferase 30 U/L (5-31); Bilirubin Total 0.3 mg/dL (0.0-1.0); Blood Urea Nitrogen 9 mg/dL (9-16); Carbon Dioxide 26 mmol/L (22-29); Chloride 99 mmol/L (96-108); Cholesterol 269 mg/dL; Estimated Glomerular Filt Rate > 60; Glucose Fasting 126 mg/dL (60-99); HDL Cholesterol 36 mg/dL; LDL Cholesterol Calculated 159 mg/dl; Potassium 4.3 mmol/L (3.3-5.1); Sodium 134 mmol/L (135-145); TSH reflex Free T4 2.03 uIU/mL (0.32-4.0); Triglycerides 373 mg/dL
[2022-08-08 14:40] LABS: Creatinine POC 0.9 mg/dL (0.5-1.4); GFR POC > 60
== END 2022-08-08 09:40 | disposition home or self-care (01) ==
LOC: HO.CT 09:39
PROVIDERS: PCP Internal Medicine; Visit Provider Urology
DX: C67.9 Malignant neoplasm of bladder, unspecified (principal); E78.01 Familial hypercholesterolemia; R91.1 Solitary pulmonary nodule; I25.10 Atherosclerotic heart disease of native coronary artery without angina pectoris; J44.9 Chronic obstructive pulmonary disease, unspecified; E11.42 Type 2 diabetes mellitus with diabetic polyneuropathy
CPT/HCPCS: 36415; 74178; 80053; 80061; 82565; 83036; 84443; 85025; Q9967

== ENCOUNTER 2022-08-19 04:15 | Emergency (ER) | payer MEDICARE, MEDICAID, OTHER, SELFPAY ==
--- NOTE | ~2022-08-19 | XR_ITS ---
EXAMINATION: XR CHEST CLINICAL INFORMATION: Cough COMPARISON: 03/30/2022 TECHNIQUE: Frontal view of the chest was obtained. FINDINGS: Normal symmetric lung volumes. No parenchymal consolidation. No pleural effusion. No pneumothorax. Cardiomediastinal silhouette and pulmonary vascularity are within normal limits. Aorta is atherosclerotic. No acute osseous abnormalities. XR/XR chest 1V IMPRESSION: No acute findings.
--- NOTE | 2022-08-19 04:24 | ED_ITS ---
HPI - General Adult General Chief complaint: Abdominal Pain Stated complaint: melatonin adverse rx Time Seen by Provider: 08/19/22 04:20 Source: patient Mode of arrival: EMS Limitations: no limitations History of Present Illness HPI narrative: Patient with metastatic bladder cancer involving the peritoneal lymph nodes comes here for feeling nausea after taking melatonin does not feel right patient took melatonin to sleep has anxiety patient does smoke has history of COPD does have this abdominal pain off and on for a month no fever no chills no urinary complaint Related Data Home Medications Medication Instructions Recorded Confirmed multivitamin (Daily Multi-Vitamin 1 tab PO BEDTIME 12/25/20 04/16/22 tablet) aspirin 81 mg chewable tablet 1 tab PO BEDTIME 09/11/21 04/16/22 atorvastatin 80 mg tablet 80 mg PO BEDTIME 09/11/21 04/16/22 nitroglycerin 0.4 mg sublingual 1 tab sublingual NEEDED angina 09/11/21 04/16/22 tablet isosorbide mononitrate 30 mg 30 mg PO DAILY 09/25/21 04/16/22 tablet,extended release 24 hr zolpidem 5 mg tablet 5 mg PO BEDTIME PRN Insomnia 11/06/21 04/16/22 amlodipine 5 mg tablet 5 mg PO DAILY 11/20/21 04/16/22 lancets 33 gauge (TRUEplus Lancets) #100 ea 11/20/21 04/16/22 bupropion HCl 150 mg tablet,12 hr 150 mg PO QAM 04/16/22 04/16/22 sustained-release Previous Rx's Medication Instructions Recorded topiramate 100 mg tablet 100 mg PO BID #180 tabs 01/08/21 lancets 28 gauge (FreeStyle #100 ea 08/07/21 Lancets) ursodiol 500 mg tablet 500 mg PO BID #90 tabs 08/21/21 blood sugar diagnostic (FreeStyle #100 ea 09/16/21 Lite Strips) benzonatate 100 mg capsule 100 mg PO TID PRN cough #14 caps 01/08/22 nicotine (polacrilex) 2 mg buccal 2 mg buccal Q4-8H PRN nicotine 01/08/22 lozenge cravings #72 ea cyanocobalamin (vitamin B-12) 2,000 mcg PO BEDTIME #180 tabs 02/13/22 1,000 mcg tablet fluticasone fur. 100 mcg-umeclid 1 inh inhalation DAILY #180 ea 02/13/22 62.5 mcg-vilant 25 mcg inhalat.powder (Trelegy Ellipta) gabapentin 100 mg capsule 200 mg PO BID #360 caps 02/13/22 lisinopril 2.5 mg tablet 2.5 mg PO BEDTIME #90 tabs 02/13/22 albuterol sulfate 2.5 mg/3 mL 2.5 mg (3 mL) inhalation Q4-6H PRN 04/02/22 (0.083 %) solution for nebulization for wheezing #180 mL guaifenesin 1,200 mg tablet, 1,200 mg PO BID 30 days #60 tabs 04/17/22 extended release 12 hr (Mucinex) ipratropium 0.5 mg-albuterol 3 mg 3 ml inhalation QID SEVERE COPD 04/17/22 (2.5 mg base)/3 mL nebulization 30 days #360 mL soln albuterol sulfate 90 mcg/actuation 2 puff inhalation Q4H PRN 04/21/22 aerosol inhaler shortness of breath or wheezing #8.5 grams nystatin 100,000 unit/gram topical 1 appl topical TID #60 grams 04/21/22 powder acetaminophen 325 mg tablet 325 mg PO Q6H PRN pain #90 tabs 05/02/22 (Tylenol) cetirizine 10 mg tablet (Zyrtec) 10 mg PO DAILY #90 tabs 05/02/22 prednisone 5 mg tablet 5 mg PO BID #60 tabs 05/26/22 cholecalciferol (vitamin D3) 25 25 mcg PO BEDTIME #90 tabs 05/30/22 mcg (1,000 unit) tablet albuterol sulfate 90 mcg/actuation 2 puff inhalation Q4-6H PRN 05/31/22 aerosol inhaler shortness of breath or wheezing 30 days #8.5 grams nitrofurantoin 100 mg PO BID 3 days #6 caps 07/18/22 monohydrate/macrocrystals 100 mg capsule (Macrobid) ipratropium 20 mcg-albuterol 100 1 puff inhalation Q6H copd 30 days 07/23/22 mcg/actuation mist for inhalation #4 grams (Combivent Respimat) metformin 750 mg tablet,extended 750 mg PO DAILY #90 tabs 07/25/22 release 24 hr lorazepam 0.5 mg tablet (Ativan) 0.5 mg PO BEDTIME PRN anxiety #10 08/19/22 tabs prednisone 20 mg tablet 40 mg PO DAILY #10 tabs 08/19/22 Allergies Allergy/AdvReac Type Severity Reaction Status Date / Time amoxicillin [AMOXICILLIN] Allergy Mild DIARRHEA Verified 07/18/22 10:49 Darvocet A500 Allergy Unknown upset Verified 07/18/22 10:49 stomach melatonin Allergy Unknown Nausea and Verified 07/18/22 10:49 Vomiting oxycodone [From PERCOCET] Allergy Unknown NAUSEA,VOMI Verified 07/18/22 10:49 TING propoxyphene Allergy Unknown Stomach Verified 07/18/22 10:49 Upset influenza virus vaccine, AdvReac Intermediate NAUSEA,DIAR Verified 07/18/22 10:49 specific WU [FLU VACCINE] lactose [LACTOSE] AdvReac Intermediate GI UPSET Verified 07/18/22 10:49 metronidazole [From FLAGYL] AdvReac Intermediate NAUSEA & Verified 07/18/22 10:49 VOMITING Sulfa (Sulfonamide AdvReac Intermediate EYE DROPS Verified 07/18/22 10:49 Antibiotics) (ONLY)-IRITIS Review of Systems Review of Systems: Yes all other systems are reviewed and are negative [facility] Past Medical History Medical History (Updated 08/19/22 @ 06:38 by Xu Pringle MD) Anxiety CAD (coronary artery disease) Cervical stenosis of spine COPD (chronic obstructive pulmonary disease) Depression Diabetic polyneuropathy associated with type 2 diabetes mellitus DM type 2 (diabetes mellitus, type 2) Elevated BUN History of smoking at least 1 pack per day for at least 30 years HTN (hypertension) Hyperlipidemia Left leg swelling Low vitamin D level Migraine headache Neck pain Nonalcoholic steatohepatitis (CHRISTINE) Pulmonary nodule Smoker Vertigo Vitamin B 12 deficiency Vitamin B12 deficiency Surgical History Fusion of spine of cervical region History of carpal tunnel release History of hysterectomy Family History Family History Mother CVD (cardiovascular disease) CVA (cerebral vascular accident) Father CVD (cardiovascular disease) Social History Social History Household Members: Other Household Members Other:: roommate Housing: House Do you presently have visiting nurse or other home services: No Alcohol intake: never Patient Tobacco Use Status: Current everyday Tobacco user Tobacco use type: Cigarette Cigarettes Per Day: 5 Years Smoked: 62 yrs Smoked in Last 30 Days: Yes e-Cigarette/Vaping Use: Never Used Second Hand Smoke Exposure: No Use of substances other than those prescribed or required for medical reasons: No Advance Directives: Yes Advance Directives on File: Yes Advance Directives Date on File: 11/14/21 service: No Current occupational status: retired Current occupation: Right Handed Cognitive needs: No Hearing needs: No Vision needs: Yes Physical Exam ED Vital Signs: Vital Signs - 24 hr 08/19/22 04:26 08/19/22 04:45 08/19/22 05:46 Temperature 97.5 F Pulse Rate 91 85 85 Respiratory Rate 16 16 16 Blood Pressure 142/66 H Pulse Oximetry 98 Oxygen Delivery Method Room Air 08/19/22 06:07 Temperature 97.6 F Pulse Rate 88 Respiratory Rate 14 Blood Pressure 135/62 Pulse Oximetry 97 Oxygen Delivery Method Room Air BMI result Body Mass Index 26.8 Appearance: Alert. Oriented X3. In mild respiratory distress anxious Eyes: PERRLA, No Nystagmus ENT: Pharynx normal. Oral Mucosa moist Neck: Normal inspection. Neck supple. CVS: Normal heart rate and rhythm. Pulses normal. Respiratory: Mild respiratory distress. Equal air entry bilateral, bilateral wheezing with crackles diffuse Abdomen: Soft, diffuse abdominal tenderness no rebound tenderness or guarding Bowel sounds are present, no mass palpable, no CVA tenderness Skin: Skin warm and dry. Normal skin color. Normal skin turgor. Extremities: No lower extremity edema. No calf tenderness Neuro: Oriented X 3. No motor deficit. Medications Administered Discontinued Medications Generic Name Dose Route Start Last Admin Trade Name Freq PRN Reason Stop Dose Admin Albuterol Sulfate 5 mg 08/19/22 05:43 08/19/22 05:46 Albuterol Sulfate (0.083%) 2.5 Mg/3 Ml Vial.Neb INHALE 08/19/22 05:44 5 mg ONCE ONE Administration Albuterol Sulfate 2.5 mg/ 0 mg 08/19/22 04:24 08/19/22 04:43 Albuterol/Ipratropium 3 ml INHALE 08/19/22 04:25 1 each ONCE ONE Administration Lorazepam 0.5 mg 08/19/22 05:24 08/19/22 05:34 Lorazepam 0.5 Mg Tablet PO 08/19/22 05:25 0.5 mg ONCE ONE Administration Methylprednisolone Sodium Succinate 125 mg 08/19/22 05:43 08/19/22 06:02 Methylprednisolone Sod Succ 125 Mg/2 Ml Vial IVPUSH 08/19/22 05:44 125 mg ONCE ONE Administration Medical Decision Making Medical Decision Making [facility] Narrative: Patient with COPD bladder cancer anxiety comes here for multiple complaints and noticed to be short of breath improved after nebulizing treatment and Solu- Medrol. Patient does have chronic abdominal pain labs are stable saturating 94- 95% at room air will discharge patient home on prednisone advised to continue her nebulizing treatment at home and advised to stop smoking Lab Data [facility] Lab Attestation statement: I reviewed the patient's lab results. 08/19/22 04:37 08/19/22 04:37 Labs: Lab Results 08/19/22 08/19/22 Range/Units 04:37 04:37 WBC 9.4 (4.8-10.8) X10*3/uL RBC 4.67 (4.20-5.50) X10*6/uL Hgb 11.3 L (12.0-16.0) g/dl Hct 36.7 L (37.0-47.0) % MCV 78.6 L (80.0-98.0) fL MCH 24.2 L (27.0-33.0) pg MCHC 30.8 L (31.0-35.0) g/dl RDW 16.7 H (11.0-16.0) % Plt Count 281 (160-400) X10*3/uL MPV 10.6 (9.4-12.3) fL Immature Gran % (Auto) 0.4 (0.0-0.4) % Neut % (Auto) 60.8 (45-73) % Lymph % (Auto) 25.6 (20-40) % Gove % (Auto) 8.4 (2-11) % Eos % (Auto) 4.1 H (0-4) % Baso % (Auto) 0.7 (0-2) % Lymph # (Auto) 2.4 (1.2-4.9) X10*3/uL Gove # (Auto) 0.8 (0.1-1.2) X10*3/uL Eos # (Auto) 0.4 (0.0-0.4) X10*3/uL Baso # (Auto) 0.1 (0.0-0.2) X10*3/uL Abs Immat Gran (auto) 0.04 H (0.00-0.03) X10*3/uL Absolute Neuts (auto) 5.7 (2.0-8.3) x10*3/uL Absolute Nucleated RBC 0.000 (0.0-0.012) X10*3/uL Nucleated RBC % (auto) 0.0 (0.0-0.2) /100WBC Sodium 136 (135-145) mmol/L Potassium 3.9 (3.3-5.1) mmol/L Chloride 103 (96-108) mmol/L Carbon Dioxide 24 (22-29) mmol/L Anion Gap 13 (12-20) BUN 13 (9-16) mg/dL Creatinine 0.90 (0.5-1.4) mg/dL Estim Creat Clear Calc 47.1 Estimated GFR > 60 Random Glucose 188 H (60-115) mg/dL Calcium 9.1 (8.4-10.2) mg/dL Total Bilirubin 0.3 (0.0-1.0) mg/dL AST 23 (5-31) U/L ALT 12 (0-31) U/L Alkaline Phosphatase 117 (39-117) U/L Total Protein 7.1 (6.5-8.0) g/dL Albumin 3.7 (3.5-5.0) g/dL Discharge Plan Discharge Clinical Impression: COPD (chronic obstructive pulmonary disease), Anxiety Patient Disposition: Home, Self-Care Instructions: COPD (Chronic Obstructive Pulmonary Disease) (ED), Anxiety (ED) Additional Instructions: Continue your nebulizing treatments every 4-6 hours as needed Ativan for anxiety/sleep Stop Smoking Prednisone as prescribed Prescriptions: New lorazepam [Ativan] 0.5 mg tablet 0.5 mg PO BEDTIME PRN (Reason: anxiety) Qty: 10 0RF prednisone 20 mg tablet 40 mg PO DAILY Qty: 10 0RF No Action topiramate 100 mg tablet 100 mg PO BID Qty: 180 3RF (DME) lancets [FreeStyle Lancets] 28 gauge misc See Rx Instructions .Route Qty: 100 3RF Rx Instructions: test blood sugar once a day ursodiol 500 mg tablet 500 mg PO BID Qty: 90 2RF (DME) FreeStyle Lite Strips Strip See Rx Instructions .Route Qty: 100 3RF Rx Instructions: test once a day lisinopril 2.5 mg tablet 2.5 mg PO BEDTIME Qty: 90 3RF cyanocobalamin (vitamin B-12) 1,000 mcg tablet 2,000 mcg PO BEDTIME Qty: 180 3RF gabapentin 100 mg capsule 200 mg PO BID Qty: 360 3RF Trelegy Ellipta 100-62.5-25 mcg blister with device 1 inh inhalation DAILY Qty: 180 3RF albuterol sulfate 2.5 mg /3 mL (0.083 %) solution for nebulization 2.5 mg inhalation Q4-6H PRN (Reason: for wheezing) Qty: 180 0RF nystatin 100,000 unit/gram powder 1 appl topical TID Qty: 60 3RF albuterol sulfate 90 mcg/actuation HFA aerosol inhaler 2 puff inhalation Q4H PRN (Reason: shortness of breath or wheezing) Qty: 8.5 6RF cetirizine [Zyrtec] 10 mg tablet 10 mg PO DAILY Qty: 90 1RF acetaminophen [Tylenol] 325 mg tablet 325 mg PO Q6H PRN (Reason: pain) Qty: 90 0RF prednisone 5 mg tablet 5 mg PO BID Qty: 60 2RF cholecalciferol (vitamin D3) 25 mcg (1,000 unit) tablet 25 mcg PO BEDTIME Qty: 90 3RF albuterol sulfate 90 mcg/actuation HFA aerosol inhaler 2 puff inhalation Q4-6H PRN (Reason: shortness of breath or wheezing) 30 Days Qty: 8.5 3RF Combivent Respimat 20-100 mcg/actuation mist 1 puff inhalation Q6H 30 Days Qty: 4 3RF metformin 750 mg tablet extended release 24 hr 750 mg PO DAILY Qty: 90 2RF nitroglycerin 0.4 mg tablet, sublingual 1 tab sublingual NEEDED atorvastatin 80 mg tablet 80 mg PO BEDTIME aspirin 81 mg tablet,chewable 1 tab PO BEDTIME benzonatate 100 mg capsule 100 mg PO TID PRN (Reason: cough) Qty: 14 0RF nicotine (polacrilex) 2 mg lozenge 2 mg buccal Q4-8H PRN (Reason: nicotine cravings) Qty: 72 0RF isosorbide mononitrate 30 mg tablet extended release 24 hr 30 mg PO DAILY amlodipine 5 mg tablet 5 mg PO DAILY (DME) lancets [TRUEplus Lancets] 33 gauge misc See Rx Instructions .ROUTE DAILY Qty: 100 Rx Instructions: As directed bupropion HCl 150 mg tablet sustained-release 12 hr 150 mg PO QAM zolpidem 5 mg tablet 5 mg PO BEDTIME PRN (Reason: Insomnia) multivitamin [Daily Multi-Vitamin] Tablet 1 tab PO BEDTIME Mucinex 1,200 mg tablet extended release 12hr 1,200 mg PO BID 30 Days Qty: 60 4RF ipratropium-albuterol 0.5 mg-3 mg(2.5 mg base)/3 mL solution for nebulization 3 ml inhalation QID 30 Days Qty: 360 3RF nitrofurantoin monohyd/m-cryst [Macrobid] 100 mg capsule 100 mg PO BID 3 Days Qty: 6 0RF Rx Instructions: must administer with a meal/food
[2022-08-19 04:26] VITALS: BP 140/75; BP 142/66; PULSE 100; PULSE 91; RESP 16; TEMP 36.4; O2SAT 96; O2SAT 98; BMI 26.8
[2022-08-19 04:42] LABS: Basophils Absolute Auto 0.1 X10*3/uL (0.0-0.2); Basophils Percent Auto 0.7 % (0-2); Eosinophils Absolute Auto 0.4 X10*3/uL (0.0-0.4); Eosinophils Percent Auto 4.1 % (0-4); Hematocrit 36.7 % (37.0-47.0); Hemoglobin 11.3 g/dl (12.0-16.0); Imm Gran Abs Auto 0.04 X10*3/uL (0.00-0.03); Imm Gran Pct Auto 0.4 % (0.0-0.4); Lymphocytes Absolute Auto 2.4 X10*3/uL (1.2-4.9); Lymphocytes Percent Auto 25.6 % (20-40); MANUAL DIFF FLAG NO; Mean Corpuscular HGB Conc 30.8 g/dl (31.0-35.0); Mean Corpuscular Hemoglobin 24.2 pg (27.0-33.0); Mean Corpuscular Volume 78.6 fL (80.0-98.0); Mean Platelet Volume 10.6 fL (9.4-12.3); Monocytes Absolute Auto 0.8 X10*3/uL (0.1-1.2); Monocytes Percent Auto 8.4 % (2-11); Neutrophils Absolute Auto 5.7 x10*3/uL (2.0-8.3); Neutrophils Percent Auto 60.8 % (45-73); Platelet Count 281 X10*3/uL (160-400); Red Blood Count 4.67 X10*6/uL (4.20-5.50); Red Cell Distribution Width 16.7 % (11.0-16.0); White Blood Count 9.4 X10*3/uL (4.8-10.8)
[2022-08-19 04:45] VITALS: PULSE 85; RESP 16; O2SAT 95
[2022-08-19 05:07] LABS: Alanine Aminotransferase 12 U/L (0-31); Albumin Level 3.7 g/dL (3.5-5.0); Alkaline Phosphatase 117 U/L (39-117); Anion Gap 13 (12-20); Aspartate Amino Transferase 23 U/L (5-31); Bilirubin Total 0.3 mg/dL (0.0-1.0); Blood Urea Nitrogen 13 mg/dL (9-16); Calcium 9.1 mg/dL (8.4-10.2); Carbon Dioxide 24 mmol/L (22-29); Chloride 103 mmol/L (96-108); Creatinine Clr Calc Pharmacy 47.1; Estimated Glomerular Filt Rate > 60; Glucose Random 188 mg/dL (60-115); Potassium 3.9 mmol/L (3.3-5.1); Sodium 136 mmol/L (135-145); Total Protein 7.1 g/dL (6.5-8.0)
--- NOTE | 2022-08-19 05:14 | MHC.EDTECH ---
PT made aware that urine sample is needed but stated that she is unable to go at the moment. PT given call lee and instructed to ring lee when she is ready to provide a sample. DIANA Westbrook made aware.
--- NOTE | 2022-08-19 05:30 | PC.NURSE ---
Pt given breathing treatment, pt tolerated well.
[2022-08-19] MEDS: LORazepam 0.5 MG TABLET PO (05:34)
--- NOTE | 2022-08-19 05:39 | PC.NURSE ---
Medicated per mar, pt feeling sob, pt placed on 2l of O2, provider is aware, Will continue to monitor.
[2022-08-19 05:46] VITALS: PULSE 85; RESP 16; O2SAT 96
[2022-08-19] MEDS: Albuterol Sulfate (0.083%) 2.5 MG/3 ML VIAL.NEB 5 MG INHALE (05:46)
[2022-08-19] MEDS: methylPREDNISolone Sod Succ 125 MG/2 ML VIAL IVPUSH (06:02)
--- NOTE | 2022-08-19 06:04 | PC.NURSE ---
22G PLACED ON LEFT FOREARM, MEDICATED PER MAR,
[2022-08-19 06:07] VITALS: BP 135/62; PULSE 88; RESP 14; TEMP 36.4; O2SAT 97
--- NOTE | 2022-08-19 06:07 | PC.NURSE ---
PT reports she had an ablation to due to her veins bleeding to her left leg per reports 02/17. Positive pedal pulses by Doppler, Notified provider Dr. Contreras aware.
--- NOTE | 2022-08-19 06:11 | MHC.EDTECH ---
PT offered 1x assistance to try to use bedside commode to obtain urine sample. PT refused trying because she stated she does not to go right now.PT reminded to ring call lee when she is ready to provide a sample
--- NOTE | 2022-08-19 06:13 | MHC.EDTECH ---
PT personal belongings placed in belongings bag bedside
== END 2022-08-19 07:14 | disposition home or self-care (01) ==
PROVIDERS: Emergency Provider Internal Medicine; PCP Internal Medicine
DX: J44.9 Chronic obstructive pulmonary disease, unspecified (principal); F41.1 Generalized anxiety disorder; F43.0 Acute stress reaction; R11.0 Nausea; F17.210 Nicotine dependence, cigarettes, uncomplicated; Z71.6 Tobacco abuse counseling; Z79.899 Other long term (current) drug therapy
CPT/HCPCS: 36415; 71045; 80053; 85025; 94640; 96374; 99284; 99285; J2930

== ENCOUNTER → 2022-08-21 13:51 | Outpatient (BNVA) | payer MEDICARE, OTHER, SELFPAY | PROVIDERS: PCP Internal Medicine; Visit Provider Internal Medicine | DX: J44.9 Chronic obstructive pulmonary disease, unspecified (principal); F17.210 Nicotine dependence, cigarettes, uncomplicated; Z79.52 Long term (current) use of systemic steroids; Z71.6 Tobacco abuse counseling | CPT/HCPCS: 99212 ==

== ENCOUNTER 2022-08-22 12:53 | Outpatient (REF) | payer MEDICARE, OTHER, SELFPAY ==
[2022-08-22 15:03] LABS: Influenza A PCR NEGATIVE (Negative); Influenza B PCR NEGATIVE (Negative); Resp Syncy Virus RNA Qual PCR NEGATIVE (Negative); SARS COV2 PCR INHOUSE NEGATIVE (Negative)
== END 2022-08-22 12:54 | disposition home or self-care (01) ==
LOC: HO.LAB 12:53
PROVIDERS: Visit Provider Internal Medicine
DX: R09.89 Other specified symptoms and signs involving the circulatory and respiratory systems (principal); Z20.822 Contact with and (suspected) exposure to COVID-19
CPT/HCPCS: 0241U

== ENCOUNTER 2022-09-01 09:37 | Day surgery (SDC) | payer MEDICARE, OTHER, SELFPAY ==
[2022-08-28 10:56] VITALS: BMI 26.6
--- NOTE | 2022-08-29 14:36 | HO.ANESPROP2 ---
HPI - Anesthesia Eval Consult details Narrative: 72yo F for TUR Bladder Tumor mitomycin Cardiac cleared Recent routine office eval with PCP and Pulmo [facility] Active Problems Active Problems: All Active Problems (Updated 08/22/22 @ 13:04 by Linda Matthews MD) URI (upper respiratory infection) (Acute) Smoker (Acute) COPD (chronic obstructive pulmonary disease) (Acute) Anxiety (Acute) Annual physical exam (Acute) DM type 2 (diabetes mellitus, type 2) (Acute) Left leg swelling (Acute) Hyperlipidemia (Acute) Neck pain (Acute) Vitamin B 12 deficiency (Acute) Unsteady gait (Acute) Polypharmacy (Acute) Vertigo (Acute) Chronic UTI (urinary tract infection) (Acute) Bladder cancer (Acute) Trochanteric bursitis, right hip (Acute) Nonalcoholic steatohepatitis (CHRISTINE) (Acute) Abnormal colonoscopy (Acute) CAD (coronary artery disease) (Acute) Diabetic polyneuropathy associated with type 2 diabetes mellitus (Acute) Low vitamin D level (Acute) Pulmonary nodule (Acute) Past Medical History Medical History Anxiety CAD (coronary artery disease) Cervical stenosis of spine COPD (chronic obstructive pulmonary disease) Depression Diabetic polyneuropathy associated with type 2 diabetes mellitus DM type 2 (diabetes mellitus, type 2) Elevated BUN History of smoking at least 1 pack per day for at least 30 years HTN (hypertension) Hyperlipidemia Left leg swelling Low vitamin D level Migraine headache Neck pain Nonalcoholic steatohepatitis (CHRISTINE) Pulmonary nodule Smoker Vertigo Vitamin B 12 deficiency Vitamin B12 deficiency Family History Family History Mother CVD (cardiovascular disease) CVA (cerebral vascular accident) Father CVD (cardiovascular disease) Surgical History Surgical History Fusion of spine of cervical region History of carpal tunnel release History of hysterectomy Social History Social History Household Members: Other Household Members Other:: roommate Housing: House Do you presently have visiting nurse or other home services: No Alcohol intake: never Patient Tobacco Use Status: Current everyday Tobacco user Tobacco use type: Cigarette Cigarettes Per Day: 6 Years Smoked: 62 yrs e-Cigarette/Vaping Use: Never Used Second Hand Smoke Exposure: No Advance Directives Date on File: 11/14/21 service: No Current occupational status: retired Current occupation: Right Handed Cognitive needs: No Hearing needs: No Vision needs: Yes Meds Allergies Allergy/AdvReac Type Severity Reaction Status Date / Time amoxicillin [AMOXICILLIN] Allergy Mild DIARRHEA Verified 08/22/22 12:32 Darvocet A500 Allergy Unknown upset Verified 08/22/22 12:32 stomach melatonin Allergy Unknown Nausea and Verified 08/22/22 12:32 Vomiting oxycodone [From PERCOCET] Allergy Unknown NAUSEA,VOMI Verified 08/22/22 12:32 TING propoxyphene Allergy Unknown Stomach Verified 08/22/22 12:32 Upset influenza virus vaccine, AdvReac Intermediate NAUSEA,DIAR Verified 08/22/22 12:32 specific WU [FLU VACCINE] lactose [LACTOSE] AdvReac Intermediate GI UPSET Verified 08/22/22 12:32 metronidazole [From FLAGYL] AdvReac Intermediate NAUSEA & Verified 08/22/22 12:32 VOMITING Sulfa (Sulfonamide AdvReac Intermediate EYE DROPS Verified 08/22/22 12:32 Antibiotics) (ONLY)-IRITIS Home Medications Medication Instructions Recorded Confirmed Last Taken Type multivitamin (Daily Multi-Vitamin 1 tab PO BEDTIME 12/25/20 08/22/22 09/09/21 History tablet) aspirin 81 mg chewable tablet 1 tab PO BEDTIME 09/11/21 08/22/22 11/13/21 History atorvastatin 80 mg tablet 80 mg PO BEDTIME 09/11/21 08/22/22 11/13/21 History nitroglycerin 0.4 mg sublingual 1 tab sublingual NEEDED angina 09/11/21 08/22/22 Unknown History tablet isosorbide mononitrate 30 mg 30 mg PO DAILY 09/25/21 08/22/22 11/13/21 History tablet,extended release 24 hr zolpidem 5 mg tablet 5 mg PO BEDTIME PRN Insomnia 11/06/21 08/22/22 11/13/21 History amlodipine 5 mg tablet 5 mg PO DAILY 11/20/21 08/22/22 Unknown History lancets 33 gauge (TRUEplus Lancets) #100 ea 11/20/21 08/22/22 Unknown History bupropion HCl 150 mg tablet,12 hr 150 mg PO QAM 04/16/22 08/22/22 Unknown History sustained-release Exam Exam Date and Time: August 29, 2022 1436 Height,Weight and Vital Signs: Height 5 ft 1 in Weight 63.957 kg Pertinent Lab Results Pertinent Lab Results: Laboratory Tests 08/19/22 08/19/22 04:37 04:37 WBC 9.4 Hgb 11.3 L Hct 36.7 L Plt Count 281 Sodium 136 Potassium 3.9 Chloride 103 Carbon Dioxide 24 BUN 13 Creatinine 0.90 Narrative Narrative: EKG 03/2022 Vent. Rate : 113 BPM ? ? Atrial Rate : 113 BPM ?? P-R Int : 122 ms? QRS Dur : 124 ms ? ? QT Int : 362 ms ? ? ? P-R-T Axes : -12 087 -04 degrees ?? QTc Int : 496 ms ? Sinus tachycardia Right bundle branch block T wave abnormality, consider inferior ischemia Abnormal ECG When compared with ECG of 21-MAR-2022 12:51, No significant change was found ECHO 11/2021 Conclusions: - Normal left ventricular size and systolic function. There is ? mildly increased left ventricular wall thickness.? The visually? estimated ejection fraction is between 60-65%. ? - E/E prime ratio is >15, consistent with elevated filling ? ? ? pressures. ? - Normal right ventricular cavity size and systolic function.? ? - There is mild aortic valve stenosis.? Assessment and Plan Assessment Anesthesia Assessment: Chart Reviewed
[2022-09-01] VITALS (8 sets, daily range): BP systolic 103–153; BP diastolic 46–61; PULSE 80–94; RESP 18–22; TEMP 36.8–37.5; O2SAT 93–96
[2022-09-01 11:24] LABS: Glucose, Whole Blood 168 mg/dL (60-115)
[2022-09-01] MEDS: Lactated Ringers 1,000 ML 50 ML IVCONT (11:30)
[2022-09-01] MEDS: levoFLOXacin 500 MG TABLET PO (11:30)
--- NOTE | 2022-09-01 12:23 | MHC.SHP ---
Pre-Procedural Eval Section A Date of Service: 09/01/22 The patient is an INPATIENT: No Changes since office visit: No Cold of Flu in the past 2 weeks, No New Medical Problems, No Changes in Medication and No Patient answered all questions The History & Physical has been completed within 30 days and I have reviewed it.: Yes Section B Chief Complaint: Malignant neoplasm of bladder, unspecified Details of Present Illness: current superficial bladder cancer Relevant Family History (Specify if Yes): No Relevant Social History: Tobacco Use Present Medications: see Short Stay Collaborative assessment Medical History: Significant History History of Previous Operations: Relevant previous surgery/procedure and date(s) Allergies: Allergies Allergy/AdvReac Type Severity Reaction Status Date / Time amoxicillin [AMOXICILLIN] Allergy Mild DIARRHEA Verified 08/22/22 12:32 Darvocet A500 Allergy Unknown upset Verified 08/22/22 12:32 stomach melatonin Allergy Unknown Nausea and Verified 08/22/22 12:32 Vomiting oxycodone [From PERCOCET] Allergy Unknown NAUSEA,VOMI Verified 08/22/22 12:32 TING propoxyphene Allergy Unknown Stomach Verified 08/22/22 12:32 Upset influenza virus vaccine, AdvReac Intermediate NAUSEA,DIAR Verified 08/22/22 12:32 specific WU [FLU VACCINE] lactose [LACTOSE] AdvReac Intermediate GI UPSET Verified 08/22/22 12:32 metronidazole [From FLAGYL] AdvReac Intermediate NAUSEA & Verified 08/22/22 12:32 VOMITING Sulfa (Sulfonamide AdvReac Intermediate EYE DROPS Verified 08/22/22 12:32 Antibiotics) (ONLY)-IRITIS Review of Systems Sugical H&P ROS: Negative: Constitution, Cardiovascular, Respiratory, Neurological, Psychiatric, Hem-Onc, Allergic/Immunologic, Gastrointestinal, Genitourinary, Musculoskeletal, Integumentary, Endocrine and Eyes/Ears/Nose/Throat Exam Surgical H&P Exam: Normal: HEENT, Normal: Heart, Normal: Lungs, Normal: Extremities, Normal: Abdomen, Normal: Skin and Normal: Neurological Plan Diagnosis/Plan: Unchanged ( cysto, TURBT, mitomycin-C) I have reviewed the history and physical and performed a pertinent physical examination on my patient. No changes have occurred unless specified. Time Spent With Patient Time: Total time managing care of this patient today ____ minutes.
--- NOTE | 2022-09-01 13:20 | HO.ANESPROP2 ---
[facility] Active Problems Active Problems: All Active Problems (Updated 08/22/22 @ 13:04 by Linda Matthews MD) URI (upper respiratory infection) (Acute) Smoker (Acute) COPD (chronic obstructive pulmonary disease) (Acute) Anxiety (Acute) Annual physical exam (Acute) DM type 2 (diabetes mellitus, type 2) (Acute) Left leg swelling (Acute) Hyperlipidemia (Acute) Neck pain (Acute) Vitamin B 12 deficiency (Acute) Unsteady gait (Acute) Polypharmacy (Acute) Vertigo (Acute) Chronic UTI (urinary tract infection) (Acute) Bladder cancer (Acute) Trochanteric bursitis, right hip (Acute) Nonalcoholic steatohepatitis (CHRISTINE) (Acute) Abnormal colonoscopy (Acute) CAD (coronary artery disease) (Acute) Diabetic polyneuropathy associated with type 2 diabetes mellitus (Acute) Low vitamin D level (Acute) Pulmonary nodule (Acute) Past Medical History Medical History Anxiety CAD (coronary artery disease) Cervical stenosis of spine COPD (chronic obstructive pulmonary disease) Depression Diabetic polyneuropathy associated with type 2 diabetes mellitus DM type 2 (diabetes mellitus, type 2) Elevated BUN History of smoking at least 1 pack per day for at least 30 years HTN (hypertension) Hyperlipidemia Left leg swelling Low vitamin D level Migraine headache Neck pain Nonalcoholic steatohepatitis (CHRISTINE) Pulmonary nodule Smoker Vertigo Vitamin B 12 deficiency Vitamin B12 deficiency Family History Family History Mother CVD (cardiovascular disease) CVA (cerebral vascular accident) Father CVD (cardiovascular disease) Surgical History Surgical History Fusion of spine of cervical region History of carpal tunnel release History of hysterectomy Social History Social History Household Members: Other Household Members Other:: roommate Housing: House Do you presently have visiting nurse or other home services: No Alcohol intake: never Patient Tobacco Use Status: Current everyday Tobacco user Tobacco use type: Cigarette Cigarettes Per Day: 6 Years Smoked: 62 yrs e-Cigarette/Vaping Use: Never Used Second Hand Smoke Exposure: No Use of substances other than those prescribed or required for medical reasons: No Are you DNR?: No Advance Directives: Yes Advance Directives on File: Yes Advance Directives Date on File: 11/14/21 Recently lost weight without trying: No Nutrition Risks: No Nutritional Risk service: No Current occupational status: retired Current occupation: Right Handed Cognitive needs: No Hearing needs: No Vision needs: Yes Meds Allergies Allergy/AdvReac Type Severity Reaction Status Date / Time amoxicillin [AMOXICILLIN] Allergy Mild DIARRHEA Verified 08/22/22 12:32 Darvocet A500 Allergy Unknown upset Verified 08/22/22 12:32 stomach melatonin Allergy Unknown Nausea and Verified 08/22/22 12:32 Vomiting oxycodone [From PERCOCET] Allergy Unknown NAUSEA,VOMI Verified 08/22/22 12:32 TING propoxyphene Allergy Unknown Stomach Verified 08/22/22 12:32 Upset influenza virus vaccine, AdvReac Intermediate NAUSEA,DIAR Verified 08/22/22 12:32 specific WU [FLU VACCINE] lactose [LACTOSE] AdvReac Intermediate GI UPSET Verified 08/22/22 12:32 metronidazole [From FLAGYL] AdvReac Intermediate NAUSEA & Verified 08/22/22 12:32 VOMITING Sulfa (Sulfonamide AdvReac Intermediate EYE DROPS Verified 08/22/22 12:32 Antibiotics) (ONLY)-IRITIS Active Medications: Current Medications Albuterol Sulfate (Albuterol Sulfate (0.083%) 2.5 Mg/3 Ml Vial.Neb) 2.5 mg INHALE ONCE PRN PRN Reason: Shortness of Breath/Wheezing Mitomycin 40 mg/ Sodium (Chloride) 20 mls @ 10 mls/hr INTRAVESIC ONCE ALEXANDRE Stop: 09/01/22 23:59 Lactated Ringer's (Lr) 1,000 mls @ 50 mls/hr IVCONT .Q20H ALEXANDRE Last Admin: 09/01/22 11:30 Dose: 50 mls/hr Home Medications Medication Instructions Recorded Confirmed Last Taken Type multivitamin (Daily Multi-Vitamin 1 tab PO BEDTIME 12/25/20 08/22/22 09/09/21 History tablet) aspirin 81 mg chewable tablet 1 tab PO BEDTIME 09/11/21 08/22/22 11/13/21 History atorvastatin 80 mg tablet 80 mg PO BEDTIME 09/11/21 08/22/22 11/13/21 History nitroglycerin 0.4 mg sublingual 1 tab sublingual NEEDED angina 09/11/21 08/22/22 Unknown History tablet isosorbide mononitrate 30 mg 30 mg PO DAILY 09/25/21 08/22/22 11/13/21 History tablet,extended release 24 hr zolpidem 5 mg tablet 5 mg PO BEDTIME PRN Insomnia 11/06/21 08/22/22 11/13/21 History amlodipine 5 mg tablet 5 mg PO DAILY 11/20/21 08/22/22 Unknown History lancets 33 gauge (TRUEplus Lancets) #100 ea 11/20/21 08/22/22 Unknown History bupropion HCl 150 mg tablet,12 hr 150 mg PO QAM 04/16/22 08/22/22 Unknown History sustained-release Exam Exam Date and Time: September 01, 2022 1320 Height,Weight and Vital Signs: Height 5 ft 1 in Weight 63.957 kg Last Vital Signs Temp 98.3 F 09/01/22 11:00 Pulse 91 09/01/22 11:00 Resp 22 H 09/01/22 11:00 BP 103/46 L 09/01/22 11:00 Pulse Ox 95 09/01/22 11:00 O2 Del Method Room Air 09/01/22 11:00 Pertinent Lab Results Pertinent Lab Results: Laboratory Tests 09/01/22 11:19 POC Glucose 168 H Airway Mallampati Class: II TM Dist: >3cm Neck ROM: Full Denture: Upper and Lower Heart: RRR Lungs: CTA Assessment and Plan Final Anesthetic Review Final Preanesthetic Review: Meds/Allgs Chart Reviewed, Consent Obtained/Reviewed and Anes Risks/Benef Reviewed Patient Risk: Intermediate (n) Procedure Risk: Low Anesthetic Plan Anesthetic Plan: GA Disposition: Standard PACU
--- NOTE | 2022-09-01 13:37 | W.PM.OPN ---
Operative Note Operative Note Date of Service: 09/01/22 Narrative: PreOperative Diagnosis: bladder cancer Post Operative Diagnosis: bladder cancer Procedure: TURBT and mitomycin-C installation Surgeon: Dr Christiano Ponce Anesthesia: general Indications for procedure: recurrent superficial bladder cancer seen in office on cystoscopy posterior back wall. Has neovascularity on posterior back wall. Had recommended repeat CT urogram. Previous imaging in 2019. Current imaging shows significant lymphadenopathy throughout pelvis. Highly likely metastatic bladder cancer Procedure: After informed consent was verified the patient was brought to the operating room and placed in a supine position. Anesthesia was administered per protocol. The patient was placed in a modified dorsal lithotomy position and prepped and draped in a sterile fashion. Safety pause time-out was performed. Antibiotics were confirmed. A 26 English continuous flow resectoscope was inserted per urethra. The visual obturator was used in order to minimize potential for urethral damage. 2 small lesions seen on posterior wall of bladder. No other lesions seen. lesions resected There was clear mucoid lymphoid tissue invading into the posterior wall of the bladder. Consistent with muscle invasive bladder cancer. Fulguration performed. At the completion of the procedure the bladder was irrigated. The cystoscope was removed. A [address] Reynoso catheter was inserted into the bladder. 10 cc was placed in the balloon. 40 mg of mitomycin in 20 cc normal saline was instilled into the bladder. The flow from the catheter was left clamped. The inflow to the catheter was attached to a 3 L normal saline bag. manual examination performed. Thickening felt at anterior aspect high posterior wall bladder. Bladder was mobile. The patient tolerated the procedure well. They were extubated in the operating room and transferred in stable condition to the recovery area. mitomycin will remain in the bladder for 1 hour. At the completion of 1 hour the clamp will be removed. The mitomycin will be allowed to egress to the urine collection bag. The 3 L bag of normal saline will be run at maximum rate through the bladder in order to dilute any residual mitomycin. The Reynoso catheter will then be removed. Pathology: highly likely muscle invasive bladder cancer Drains: Reynoso as above
== END 2022-09-01 15:52 | disposition home or self-care (01) ==
PROVIDERS: Internal Medicine Medical Oncology; PCP Internal Medicine; Visit Provider Urology
PROC: 0TBB8ZZ Excision of Bladder, Via Natural or Artificial Opening Endoscopic (ICD-10-PCS; CPT 52235; principal; 2022-09-01 10:50)
DX: C67.4 Malignant neoplasm of posterior wall of bladder (principal); C79.11 Secondary malignant neoplasm of bladder; R59.0 Localized enlarged lymph nodes; E11.42 Type 2 diabetes mellitus with diabetic polyneuropathy; E78.5 Hyperlipidemia, unspecified; I10 Essential (primary) hypertension; J44.9 Chronic obstructive pulmonary disease, unspecified; F41.1 Generalized anxiety disorder; R91.1 Solitary pulmonary nodule; I25.10 Atherosclerotic heart disease of native coronary artery without angina pectoris; F17.210 Nicotine dependence, cigarettes, uncomplicated; Z79.82 Long term (current) use of aspirin; Z79.899 Other long term (current) drug therapy; Z88.1 Allergy status to other antibiotic agents; Z88.2 Allergy status to sulfonamides; Z88.8 Allergy status to other drugs, medicaments and biological substances
CPT/HCPCS: 52235; 51720; 36415; 82947; 88307; 88341; 88342; 88360; J1100; J2250; J2370; J3010; J9280

== ENCOUNTER 2022-09-10 04:46 | Inpatient (IN) | payer MEDICARE, OTHER, SELFPAY ==
[2022-09-10] VITALS (9 sets, daily range): BP systolic 103–146; BP diastolic 51–73; PULSE 88–107; RESP 14–29; TEMP 36.1–37; O2SAT 92–100; BMI 23.9; BMI 21.7
--- NOTE | ~2022-09-10 | XR_ITS ---
EXAMINATION: XR CHEST CLINICAL INFORMATION: Shortness of breath COMPARISON: 08/19/2022 TECHNIQUE: Frontal view of the chest was obtained. FINDINGS: Lung volumes are symmetric. No focal consolidation is seen. No evidence of pneumothorax, pleural effusion, or pulmonary edema. Cardiac size is within normal limits. Calcification is present at the aortic arch. Fusion hardware noted in the lower cervical spine. Degenerative changes are noted in the spine. XR/XR chest 1V IMPRESSION: No acute cardiopulmonary findings.
--- NOTE | 2022-09-10 05:01 | ECG_ITS ---
Test Reason : sob Blood Pressure : / mmHG Vent. Rate : 104 BPM Atrial Rate : 104 BPM P-R Int : 122 ms QRS Dur : 126 ms QT Int : 378 ms P-R-T Axes : -23 083 011 degrees QTc Int : 497 ms Sinus tachycardia Right bundle branch block Cannot rule out Inferior infarct , age undetermined Abnormal ECG When compared with ECG of 30-MAR-2022 20:55, No significant change was found Referred By: Generic ED Physician Electronically Signed By:LAKSHMI SANTOS MD
[2022-09-10 05:08] LABS: MANUAL DIFF FLAG NO
[2022-09-10 05:09] LABS: Basophils Absolute Auto 0.1 X10*3/uL (0.0-0.2); Basophils Percent Auto 0.8 % (0-2); Eosinophils Absolute Auto 0.4 X10*3/uL (0.0-0.4); Eosinophils Percent Auto 4.2 % (0-4); Hematocrit 37.5 % (37.0-47.0); Hemoglobin 11.1 g/dl (12.0-16.0); Imm Gran Abs Auto 0.06 X10*3/uL (0.00-0.03); Imm Gran Pct Auto 0.6 % (0.0-0.4); Lymphocytes Absolute Auto 2.7 X10*3/uL (1.2-4.9); Lymphocytes Percent Auto 26.8 % (20-40); Mean Corpuscular HGB Conc 29.6 g/dl (31.0-35.0); Mean Corpuscular Hemoglobin 23.9 pg (27.0-33.0); Mean Corpuscular Volume 80.8 fL (80.0-98.0); Mean Platelet Volume 9.9 fL (9.4-12.3); Monocytes Percent Auto 10.1 % (2-11); Neutrophils Absolute Auto 5.7 x10*3/uL (2.0-8.3); Neutrophils Percent Auto 57.5 % (45-73); Platelet Count 304 X10*3/uL (160-400); Red Blood Count 4.64 X10*6/uL (4.20-5.50); Red Cell Distribution Width 17.2 % (11.0-16.0)
[2022-09-10 05:22] LABS: Anion Gap 13 (12-20); Blood Urea Nitrogen 7 mg/dL (9-16); Calcium 8.9 mg/dL (8.4-10.2); Carbon Dioxide 26 mmol/L (22-29); Chloride 107 mmol/L (96-108); Creatinine Clr Calc Pharmacy 56.3; Estimated Glomerular Filt Rate > 60; Glucose Random 143 mg/dL (60-115); Potassium 4.5 mmol/L (3.3-5.1); Sodium 141 mmol/L (135-145)
[2022-09-10 05:31] LABS: Troponin-I High Sensitivity 5.2 ng/L (<3.5-17.0)
--- NOTE | 2022-09-10 05:53 | ED.SOB ---
HPI - SOB/Dyspnea General Chief Complaint: Dyspnea Stated Complaint: SOB Time Seen by Provider: 09/10/22 05:43 Source: patient Mode of arrival: EMS Limitations: no limitations History of Present Illness HPI Narrative: Patient 72 years old with advanced COPD, anxiety, , depression, diabetes, anxiety, current cigarette smoker comes here for increased shortness of breath for last 2 days patient is on Trelegy albuterol and DuoNeb patient feels tight and feels phlegm but no expectoration patient gets sick like this very often no fever no chills feels chest tight no palpitation patient does get same kind of feeling in the past when he gets short of breath Related Data Home Medications Medication Instructions Recorded Confirmed multivitamin (Daily Multi-Vitamin 1 tab PO BEDTIME 12/25/20 08/22/22 tablet) aspirin 81 mg chewable tablet 1 tab PO BEDTIME 09/11/21 08/22/22 atorvastatin 80 mg tablet 80 mg PO BEDTIME 09/11/21 08/22/22 nitroglycerin 0.4 mg sublingual 1 tab sublingual NEEDED angina 09/11/21 08/22/22 tablet isosorbide mononitrate 30 mg 30 mg PO DAILY 09/25/21 08/22/22 tablet,extended release 24 hr zolpidem 5 mg tablet 5 mg PO BEDTIME PRN Insomnia 11/06/21 08/22/22 amlodipine 5 mg tablet 5 mg PO DAILY 11/20/21 08/22/22 lancets 33 gauge (TRUEplus Lancets) #100 ea 11/20/21 08/22/22 bupropion HCl 150 mg tablet,12 hr 150 mg PO QAM 04/16/22 08/22/22 sustained-release Previous Rx's Medication Instructions Recorded topiramate 100 mg tablet 100 mg PO BID #180 tabs 01/08/21 lancets 28 gauge (FreeStyle #100 ea 08/07/21 Lancets) ursodiol 500 mg tablet 500 mg PO BID #90 tabs 08/21/21 blood sugar diagnostic (FreeStyle #100 ea 09/16/21 Lite Strips) nicotine (polacrilex) 2 mg buccal 2 mg buccal Q4-8H PRN nicotine 01/08/22 lozenge cravings #72 ea cyanocobalamin (vitamin B-12) 2,000 mcg PO BEDTIME #180 tabs 02/13/22 1,000 mcg tablet fluticasone fur. 100 mcg-umeclid 1 inh inhalation DAILY #180 ea 02/13/22 62.5 mcg-vilant 25 mcg inhalat.powder (Trelegy Ellipta) gabapentin 100 mg capsule 200 mg PO BID #360 caps 02/13/22 lisinopril 2.5 mg tablet 2.5 mg PO BEDTIME #90 tabs 02/13/22 albuterol sulfate 2.5 mg/3 mL 2.5 mg (3 mL) inhalation Q4-6H PRN 04/02/22 (0.083 %) solution for nebulization for wheezing #180 mL guaifenesin 1,200 mg tablet, 1,200 mg PO BID 30 days #60 tabs 04/17/22 extended release 12 hr (Mucinex) ipratropium 0.5 mg-albuterol 3 mg 3 ml inhalation QID SEVERE COPD 04/17/22 (2.5 mg base)/3 mL nebulization 30 days #360 mL soln nystatin 100,000 unit/gram topical 1 appl topical TID #60 grams 04/21/22 powder acetaminophen 325 mg tablet 325 mg PO Q6H PRN pain #90 tabs 05/02/22 (Tylenol) cholecalciferol (vitamin D3) 25 25 mcg PO BEDTIME #90 tabs 05/30/22 mcg (1,000 unit) tablet ipratropium 20 mcg-albuterol 100 1 puff inhalation Q6H copd 30 days 07/23/22 mcg/actuation mist for inhalation #4 grams (Combivent Respimat) metformin 750 mg tablet,extended 750 mg PO DAILY #90 tabs 07/25/22 release 24 hr lorazepam 0.5 mg tablet (Ativan) 0.5 mg PO BEDTIME PRN anxiety #10 08/19/22 tabs prednisone 20 mg tablet 40 mg PO DAILY #10 tabs 08/19/22 loratadine 10 mg tablet (Claritin) 10 mg PO DAILY #90 tabs 08/22/22 phenazopyridine 100 mg tablet 100 mg PO TID PRN Spasm 4 days #12 09/01/22 (Pyridium) tabs albuterol sulfate 90 mcg/actuation 2 puff PO Q4-6H PRN for wheezing 09/02/22 aerosol inhaler #1 ea Allergies Allergy/AdvReac Type Severity Reaction Status Date / Time amoxicillin [AMOXICILLIN] Allergy Mild DIARRHEA Verified 08/22/22 12:32 Darvocet A500 Allergy Unknown upset Verified 08/22/22 12:32 stomach melatonin Allergy Unknown Nausea and Verified 08/22/22 12:32 Vomiting oxycodone [From PERCOCET] Allergy Unknown NAUSEA,VOMI Verified 08/22/22 12:32 TING propoxyphene Allergy Unknown Stomach Verified 08/22/22 12:32 Upset influenza virus vaccine, AdvReac Intermediate NAUSEA,DIAR Verified 08/22/22 12:32 specific WU [FLU VACCINE] lactose [LACTOSE] AdvReac Intermediate GI UPSET Verified 08/22/22 12:32 metronidazole [From FLAGYL] AdvReac Intermediate NAUSEA & Verified 08/22/22 12:32 VOMITING Sulfa (Sulfonamide AdvReac Intermediate EYE DROPS Verified 08/22/22 12:32 Antibiotics) (ONLY)-IRITIS Review of Systems Review of Systems: Yes all other systems are reviewed and are negative PMFSH Past Medical History Medical History Anxiety CAD (coronary artery disease) Cervical stenosis of spine COPD (chronic obstructive pulmonary disease) Depression Diabetic polyneuropathy associated with type 2 diabetes mellitus DM type 2 (diabetes mellitus, type 2) Elevated BUN History of smoking at least 1 pack per day for at least 30 years HTN (hypertension) Hyperlipidemia Left leg swelling Low vitamin D level Migraine headache Neck pain Nonalcoholic steatohepatitis (CHRISTINE) Pulmonary nodule Smoker Vertigo Vitamin B 12 deficiency Vitamin B12 deficiency Surgical History Fusion of spine of cervical region History of carpal tunnel release History of hysterectomy Family History Family History Mother CVD (cardiovascular disease) CVA (cerebral vascular accident) Father CVD (cardiovascular disease) Social History Social History Household Members: Other Household Members Other:: roommate Housing: House Do you presently have visiting nurse or other home services: No Alcohol intake: never Patient Tobacco Use Status: Current everyday Tobacco user Tobacco use type: Cigarette Cigarettes Per Day: 6 Years Smoked: 62 yrs Smoked in Last 30 Days: Yes e-Cigarette/Vaping Use: Never Used Second Hand Smoke Exposure: No Use of substances other than those prescribed or required for medical reasons: No Advance Directives: Yes Advance Directives on File: Yes Advance Directives Date on File: 11/14/21 service: No Current occupational status: retired Current occupation: Right Handed Cognitive needs: No Hearing needs: No Vision needs: Yes Physical Exam Vital Signs: Vital Signs: Last Vital Signs Temp 98.6 F 09/10/22 04:53 Pulse 102 H 09/10/22 06:28 Resp 22 H 09/10/22 06:28 BP 144/64 H 09/10/22 04:53 Pulse Ox 93 09/10/22 04:53 O2 Del Method Room Air 09/10/22 04:53 BMI result Body Mass Index 23.9 Appearance: Alert. Oriented X3. Moderate respiratory distress Eyes: PERRLA, No Nystagmus ENT: Pharynx normal. Oral Mucosa moist Neck: Normal inspection. Neck supple. CVS: Normal heart rate and rhythm. Pulses normal. Respiratory:mod respiratory distress. Equal air entry bilateral, bilateral wheezing Abdomen: Soft and nontender. Bowel sounds are present, Skin: Skin warm and dry. Normal skin color. Normal skin turgor. Extremities: No lower extremity edema. No calf tenderness Neuro: Oriented X 3. No motor deficit. Medications Administered Discontinued Medications Generic Name Dose Route Start Last Admin Trade Name Freq PRN Reason Stop Dose Admin Albuterol Sulfate 7.5 mg 09/10/22 06:00 09/10/22 06:25 Albuterol Sulfate (0.083%) 2.5 Mg/3 Ml Vial.Neb INHALE 09/10/22 06:01 7.5 mg ONCE ONE Administration Methylprednisolone Sodium Succinate 125 mg 09/10/22 06:00 09/10/22 06:06 Methylprednisolone Sod Succ 125 Mg/2 Ml Vial IVPUSH 09/10/22 06:01 125 mg ONCE ONE Administration Medical Decision Making Medical Decision Making [facility] Narrative: Patient's COPD with increased shortness of breath with exacerbation will do chest x-ray to rule out any infection/pneumonia Chest x-ray negative for acute patient is still feeling short of breath will admit for advanced COPD No signs of bacterial infection will admit patient for COPD with acute bronchitis likely viral Differential Diagnosis COPD/chronic bronchitis/pneumonia/pneumothorax/CHF Consult Healthcare Provider Management of the patient was discussed with: Hospitalist Lab Data MDM Lab Attestation statement: I reviewed the patient's lab results. 09/10/22 05:04 09/10/22 05:04 Labs: Lab Results 09/10/22 09/10/22 09/10/22 Range/Units 05:04 05:04 05:04 WBC 10.0 (4.8-10.8) X10*3/uL RBC 4.64 (4.20-5.50) X10*6/uL Hgb 11.1 L (12.0-16.0) g/dl Hct 37.5 (37.0-47.0) % MCV 80.8 (80.0-98.0) fL MCH 23.9 L (27.0-33.0) pg MCHC 29.6 L (31.0-35.0) g/dl RDW 17.2 H (11.0-16.0) % Plt Count 304 (160-400) X10*3/uL MPV 9.9 (9.4-12.3) fL Immature Gran % (Auto) 0.6 H (0.0-0.4) % Neut % (Auto) 57.5 (45-73) % Lymph % (Auto) 26.8 (20-40) % Pettis % (Auto) 10.1 (2-11) % Eos % (Auto) 4.2 H (0-4) % Baso % (Auto) 0.8 (0-2) % Lymph # (Auto) 2.7 (1.2-4.9) X10*3/uL Pettis # (Auto) 1.0 (0.1-1.2) X10*3/uL Eos # (Auto) 0.4 (0.0-0.4) X10*3/uL Baso # (Auto) 0.1 (0.0-0.2) X10*3/uL Abs Immat Gran (auto) 0.06 H (0.00-0.03) X10*3/uL Absolute Neuts (auto) 5.7 (2.0-8.3) x10*3/uL Absolute Nucleated RBC 0.000 (0.0-0.012) X10*3/uL Nucleated RBC % (auto) 0.0 (0.0-0.2) /100WBC Sodium 141 (135-145) mmol/L Potassium 4.5 (3.3-5.1) mmol/L Chloride 107 (96-108) mmol/L Carbon Dioxide 26 (22-29) mmol/L Anion Gap 13 (12-20) BUN 7 L (9-16) mg/dL Creatinine 0.82 (0.5-1.4) mg/dL Estim Creat Clear Calc 56.3 Estimated GFR > 60 Random Glucose 143 H (60-115) mg/dL Calcium 8.9 (8.4-10.2) mg/dL Troponin I High Sens 5.2 (<3.5-17.0) ng/L Independent Interpretation I performed an independent interpretation of an: EKG (Sinus tachycardia heart rate 104 beats per minute right bundle-branch block no acute ST-T changes no acute ischemia no significant change) Interpretation: Sinus tachycardia heart rate 104 beats per minute admitted on block no acute ST change and no acute ischemia Discharge Plan Discharge Clinical Impression: COPD (chronic obstructive pulmonary disease) with acute bronchitis Patient Disposition: Admitted As Inpatient
[2022-09-10] MEDS: methylPREDNISolone Sod Succ 125 MG/2 ML VIAL IVPUSH (06:06)
[2022-09-10] MEDS: Albuterol Sulfate (0.083%) 2.5 MG/3 ML VIAL.NEB 7.5 MG INHALE (06:25)
--- NOTE | 2022-09-10 07:21 | P.HPHOSP_ITS ---
History of Present Illness Date of Service: 09/10/22 Chief Complaint: Shortness of Breath 72 yo F with a PMH of COPD, CAD, DM, HTN, active Tobacco use (4 to 6 cig/day), Cervical stenosis who presents to the ED with increasing shortness of breath, chest tightness for 2 days and not getting relief with Trelegy albuterol and DuoNeb. She has cough with phlegm but no sputum production. She has no fever or chills. She has had no inpatient admission for more than a year. Work up in ED: no PNA on CXR, nl WBC, no hypoxia. Treated with Duoneb, IV Solu-medrol, magneseium and Ceftriaxone. Review of Systems Review of Systems: Gen: no fever Resp: +sob, +cough CV: no chest, no TANG, no leg edema GI: No n/v, no abd pain Neuro: No confusion Yes all other systems are reviewed and are negative [facility] Medical History Anxiety CAD (coronary artery disease) Cervical stenosis of spine COPD (chronic obstructive pulmonary disease) Depression Diabetic polyneuropathy associated with type 2 diabetes mellitus DM type 2 (diabetes mellitus, type 2) Elevated BUN History of smoking at least 1 pack per day for at least 30 years HTN (hypertension) Hyperlipidemia Left leg swelling Low vitamin D level Migraine headache Neck pain Nonalcoholic steatohepatitis (CHRISTINE) Pulmonary nodule Smoker Vertigo Vitamin B 12 deficiency Vitamin B12 deficiency Family History Mother CVD (cardiovascular disease) CVA (cerebral vascular accident) Father CVD (cardiovascular disease) Surgical History Fusion of spine of cervical region History of carpal tunnel release History of hysterectomy Social History Household Members: Other Household Members Other:: roommate Housing: House Do you presently have visiting nurse or other home services: No Alcohol intake: never Patient Tobacco Use Status: Current everyday Tobacco user Tobacco use type: Cigarette Cigarettes Per Day: 6 Years Smoked: 62 yrs Smoked in Last 30 Days: Yes e-Cigarette/Vaping Use: Never Used Second Hand Smoke Exposure: No Use of substances other than those prescribed or required for medical reasons: No Advance Directives: Yes Advance Directives on File: Yes Advance Directives Date on File: 11/14/21 service: No Current occupational status: retired Current occupation: Right Handed Cognitive needs: No Hearing needs: No Vision needs: Yes Meds Allergies Allergy/AdvReac Type Severity Reaction Status Date / Time amoxicillin [AMOXICILLIN] Allergy Mild DIARRHEA Verified 08/22/22 12:32 Darvocet A500 Allergy Unknown upset Verified 08/22/22 12:32 stomach melatonin Allergy Unknown Nausea and Verified 08/22/22 12:32 Vomiting oxycodone [From PERCOCET] Allergy Unknown NAUSEA,VOMI Verified 08/22/22 12:32 TING propoxyphene Allergy Unknown Stomach Verified 08/22/22 12:32 Upset influenza virus vaccine, AdvReac Intermediate NAUSEA,DIAR Verified 08/22/22 12:32 specific WU [FLU VACCINE] lactose [LACTOSE] AdvReac Intermediate GI UPSET Verified 08/22/22 12:32 metronidazole [From FLAGYL] AdvReac Intermediate NAUSEA & Verified 08/22/22 12:32 VOMITING Sulfa (Sulfonamide AdvReac Intermediate EYE DROPS Verified 08/22/22 12:32 Antibiotics) (ONLY)-IRITIS Active Medications: Current Medications Ceftriaxone Sodium 1 gm/ (Sodium Chloride) 50 mls @ 100 mls/hr IV ONCE ONE Stop: 09/10/22 07:41 Sodium Chloride (Ns) 1,000 mls @ 999 mls/hr IV .Q1H1M ONE Stop: 09/10/22 08:14 Home Medications Medication Instructions Recorded Confirmed Last Taken Type multivitamin (Daily Multi-Vitamin 1 tab PO BEDTIME 12/25/20 09/10/22 09/09/21 History tablet) aspirin 81 mg chewable tablet 1 tab PO BEDTIME 09/11/21 09/10/22 11/13/21 History atorvastatin 80 mg tablet 80 mg PO BEDTIME 09/11/21 09/10/22 11/13/21 History nitroglycerin 0.4 mg sublingual 1 tab sublingual NEEDED angina 09/11/21 09/10/22 Unknown History tablet isosorbide mononitrate 30 mg 30 mg PO DAILY 09/25/21 09/10/22 11/13/21 History tablet,extended release 24 hr zolpidem 5 mg tablet 5 mg PO BEDTIME PRN Insomnia 11/06/21 09/10/22 11/13/21 History amlodipine 5 mg tablet 5 mg PO DAILY 11/20/21 09/10/22 Unknown History lancets 33 gauge (TRUEplus Lancets) #100 ea 11/20/21 08/22/22 Unknown History bupropion HCl 150 mg 24 hr tablet, 150 mg PO QAM 09/10/22 09/10/22 Unknown History extended release metformin 750 mg tablet,extended 750 mg PO DAILY 09/10/22 09/10/22 Unknown History release 24 hr prednisone 5 mg tablet 5 mg PO BID 09/10/22 09/10/22 Unknown History Physical Exam Vital Signs and Narrative: Vital Signs: Last Vital Signs Temp 98.6 F 09/10/22 04:53 Pulse 102 H 09/10/22 06:28 Resp 22 H 09/10/22 06:28 BP 144/64 H 09/10/22 04:53 Pulse Ox 93 09/10/22 04:53 O2 Del Method Room Air 09/10/22 04:53 BMI result Body Mass Index 23.9 Const: Other: Constitutional - Awake and Alert, mild tachpnea around 24, talking without distress Eyes -? PERRLA, EOMI Cardiovascular -? S1S2, RRR, No edema, no JVD appreciated Respiratory - Poor air entry globally; no accessory muscle use, but zoltan wheze in lower lung charles Gastrointestinal -? NT / ND; +BS; No rebound or guarding - No CVA tenderness Extremities - no calf tenderness bilaterally, no swelling Musculoskeletal - Normal inspection, normal ROM Skin - Warm/Dry Neurological -? Alert & oriented x3, No focal deficit Psychological - Appropriate affect Results Labs 09/10/22 05:04 09/10/22 05:04 Labs: Laboratory Results - last 24 hr 09/10/22 09/10/22 09/10/22 05:04 05:04 05:04 MCV 80.8 MCH 23.9 L MCHC 29.6 L RDW 17.2 H Plt Count 304 MPV 9.9 Immature Gran % (Auto) 0.6 H Neut % (Auto) 57.5 Lymph % (Auto) 26.8 [place] % (Auto) 10.1 Eos % (Auto) 4.2 H Baso % (Auto) 0.8 Lymph # (Auto) 2.7 [place] # (Auto) 1.0 Eos # (Auto) 0.4 Baso # (Auto) 0.1 Abs Immat Gran (auto) 0.06 H Absolute Neuts (auto) 5.7 Absolute Nucleated RBC 0.000 Nucleated RBC % (auto) 0.0 Anion Gap 13 Estim Creat Clear Calc 56.3 Estimated GFR > 60 Random Glucose 143 H Calcium 8.9 Troponin I High Sens 5.2 Imaging Radiologist's Impressions: Impressions Chest X-Ray 09/10/22 05:25 IMPRESSION: No acute cardiopulmonary findings. Assessment and Plan (1) COPD (chronic obstructive pulmonary disease) with acute bronchitis: Status: Acute Plan 71 yo F with a PMH of COPD who is an active smoker presenting to the ED with respiratory symptoms suggesting acute exacerbation of COPD. She has improved with EMS/ED treatments but still not improved enough for discharge home and hence will be admitted under observation. #Acute exacerbation of COPD without hypoxia. IV solu-medrol + DuoNebs scheulded and PRN she is advised tobacco cessation Screen for covid # CAD no donovan pain, continue her baseline meds (imdur, ASA, zestril, statin) #Acute lactic acidosis-NOT due to sepsis; d/t to updrafts? + metformin #Diabetes--hold Metformin, sliding scle, diabetic diet #Cervical spinal stenosis? / cervicalgia, stble without pain #Cervical spinal stenosis? / cervicalgia on prednisone 5 mg daily, hold while on solumedrol, continue topiramate, neurontin Full Code DVT pptx, Lovenox Obs with anticipated dc in 24 hours Time Spent With Patient Time: Total time managing care of this patient today ____ minutes. Quality Stroke Does the patient have a stroke diagnosis?: No VTE Prior VTE?: No VTE Risk Level:: Medical - moderate - high VTE Device Contraindication: Treatment Not Indicated VTE Drug Contraindication: N/A - Med Ordered
[2022-09-10] MEDS: cefTRIAXone sodium 1 GM in 0.9 % Sodium Chloride 50 ML IV (07:27)
[2022-09-10] MEDS: 0.9 % Sodium Chloride 1,000 ML 999 ML IV (07:31)
[2022-09-10] MEDS: Albuterol/Iprat 2.5/0.5MG 3 ML AMPUL.NEB INHALE ×4 (07:43→20:23)
--- NOTE | 2022-09-10 08:16 | PC.NURSE ---
alert, denies sob after ambulating to bathroom, skin wpd, steady gait, 2 not connected as pt states she doesn't feel like she needs it,
[2022-09-10 08:47] LABS: Appearance Urine Clear; Color Urine Yellow; Glucose Urine UA Negative (Negative); Leukocyte Esterase Urine Moderate (2+) (Negative); Nitrite Urine Negative (Negative); UMIC TRIGGER UACC YES; Urine Blood Moderate (2+) (Negative); Urine Ketones Negative (Negative); Urine Protein 100 (2+) mg/dL (Neg-Trace)
[2022-09-10 08:50] LABS: Bacteria Urine None Seen (None Seen); Hyaline Casts Urine 0-2 /LPF (0-2); Squamous Epithelial Cell Urine 0-2 /HPF (0-2); UACC Culture Trigger YES
[2022-09-10 09:11] LABS: Lactic Acid 2.4 mmol/L (0.5-2.0)
[2022-09-10] MEDS: Enoxaparin Sodium 30 MG/0.3 ML SYRINGE SUBCUT (09:15)
[2022-09-10 10:42] LABS: Reflex Lactate? Lactic Acid Added
--- NOTE | 2022-09-10 10:43 | PHA.MEDREC ---
Pharmacy Consult ? Medication Reconciliation Patient provided medication list. Pharmacy has completed the medication reconciliation.
[2022-09-10 11:32] LABS: ~Lactic Acid-LAB USE ONLY 3.5 mmol/L (0.5-2.0)
[2022-09-10] MEDS: Topiramate 100 MG TABLET PO ×2 (12:51→20:32)
[2022-09-10] MEDS: Gabapentin 100 MG CAPSULE 200 MG PO ×2 (12:51→20:31)
[2022-09-10] MEDS: Loratadine 10 MG TABLET PO (12:51)
[2022-09-10] MEDS: buPROPion HCl XL 150 MG TAB.ER.24H PO (12:52)
[2022-09-10] MEDS: amLODIPine Besylate 5 MG TABLET PO (12:52)
[2022-09-10 13:01] LABS: Reflex Lactate? 2 Y
[2022-09-10 14:07] LABS: ~Lactic Acid-LAB USE ONLY 3.8 mmol/L (0.5-2.0)
[2022-09-10] MEDS: methylPREDNISolone Sod Succ 40 MG/ML VIAL IVPUSH ×2 (15:55→22:18)
[2022-09-10] MEDS: 0.9 % Sodium Chloride Flush 3 ML SYRINGE IVFLUSH ×2 (16:01→19:46)
[2022-09-10] MEDS: Atorvastatin Calcium 80 MG TABLET PO (20:31)
[2022-09-10] MEDS: Cholecalciferol (Vitamin D3) 25 MCG TABLET PO (20:31)
[2022-09-10] MEDS: lisinopriL 2.5 MG TABLET PO (20:32)
[2022-09-10] MEDS: Multivitamin TABLET 1 TAB PO (20:32)
[2022-09-10] MEDS: Aspirin 81 MG TAB.CHEW PO (20:32)
[2022-09-10] MEDS: UrsodioL 300 MG CAPSULE 600 MG PO (20:32)
[2022-09-10 21:47] LABS: Glucose, Whole Blood 257 mg/dL (60-115)
[2022-09-10] MEDS: Zolpidem Tartrate 5 MG TABLET PO (22:28)
[2022-09-10] MEDS: Insulin Lispro 100 UNIT/ML 3 ML VIAL SUBCUT (22:45)
[2022-09-11] VITALS (10 sets, daily range): BP systolic 93–124; BP diastolic 50–58; PULSE 81–92; RESP 16–20; TEMP 36.1–37.2; O2SAT 87–98
[2022-09-11] MEDS: methylPREDNISolone Sod Succ 40 MG/ML VIAL IVPUSH ×2 (05:18→13:49)
[2022-09-11 07:26] LABS: Glucose, Whole Blood 244 mg/dL (60-115)
[2022-09-11] MEDS: Albuterol/Iprat 2.5/0.5MG 3 ML AMPUL.NEB INHALE ×4 (07:47→20:21)
--- NOTE | 2022-09-11 07:51 | PC.RT ---
pt Sat on room air at rest is 87%, does not have home oxygen. pt willne home 02 eval prior to discharge. Will let hospitalist aware. pt does see Dr. Logan as Pulm
[2022-09-11] MEDS: Insulin Lispro 100 UNIT/ML 3 ML VIAL SUBCUT ×4 (08:04→21:06)
[2022-09-11] MEDS: Enoxaparin Sodium 30 MG/0.3 ML SYRINGE SUBCUT (08:04)
[2022-09-11] MEDS: Topiramate 100 MG TABLET PO ×2 (08:04→20:30)
[2022-09-11] MEDS: Isosorbide Mononitrate 30 MG TAB.ER.24H PO (08:05)
[2022-09-11] MEDS: amLODIPine Besylate 5 MG TABLET PO (08:05)
[2022-09-11] MEDS: buPROPion HCl XL 150 MG TAB.ER.24H PO (08:05)
[2022-09-11] MEDS: Gabapentin 100 MG CAPSULE 200 MG PO ×2 (08:05→20:30)
[2022-09-11] MEDS: 0.9 % Sodium Chloride Flush 3 ML SYRINGE IVFLUSH ×3 (08:05→20:29)
[2022-09-11] MEDS: UrsodioL 300 MG CAPSULE 600 MG PO ×2 (08:05→20:30)
[2022-09-11] MEDS: Loratadine 10 MG TABLET PO (08:05)
--- NOTE | 2022-09-11 08:57 | MHC.CM.PN ---
Addendum entered by Isabel Enriquez RN 09/11/22 10:19: IMM 5/4 IN CHART NOW Original Note: PATIENT LIVES WITH HOUSEMATE HCP IS ON FILE AND VERIFIED. HAS CANE BUT RARELY NEEDS. DOES RELY ON HER INHALERS. NO VNA SERVICES IN HOME. PLAN WILL BE HOME - SELF CARE, ALTHOUGH SHE IS AGREEABLE TO VNA SERVICES IF RECOMMENDED DOMÍNGUEZ 09/11 IN CHART
[2022-09-11] MEDS: Fluticasone/Vilanterol 100/25 BLST.W.DEV 1 PUFF INHALE (09:14)
[2022-09-11 11:19] LABS: Glucose, Whole Blood 215 mg/dL (60-115)
--- NOTE | 2022-09-11 14:32 | HO.PM.IMPN ---
Subjective Subjective Date of Service: 09/11/22 Interval History: Minimal improvement since admit; afebrile overnight Review of Systems Denies chest pain Denies shortness of breath Denies nausea vomiting diarrhea Denies fever chills Physical Exam Vital Signs: Vital Signs: Last Vital Signs Temp 97.7 F 09/11/22 11:52 Pulse 82 09/11/22 11:56 Resp 18 09/11/22 11:56 BP 101/57 L 09/11/22 11:52 Pulse Ox 97 09/11/22 11:52 O2 Del Method Nasal Cannula 09/11/22 11:52 O2 Flow Rate 2 09/11/22 11:52 BMI result Body Mass Index 21.7 Const: Other: Awake alert no acute distress. Speaking full sentences Resp: Other: Extreme diminished at bases scattered expiratory wheezes Cardio: Other: No S4; positive S1-S2; no S3 murmurs rubs or gallops GI: Other: Soft nontender nondistended normoactive bowel sounds Extrem: Other: No edema bilaterally Objective Data Active Medications Albuterol/Ipratropium (Albuterol/Iprat 2.5/0.5mg 3 Ml Ampul.Neb) 3 ml INHALE RQ4H WHILE AWAKE [facility] Last Admin: 09/11/22 11:56 Dose: 3 ml Documented By: ZIYAD Amlodipine Besylate (Amlodipine Besylate 5 Mg Tablet) 5 mg PO DAILY [facility]; Protocol Last Admin: 09/11/22 08:05 Dose: 5 mg Documented By: ETTA Aspirin (Aspirin 81 Mg Tab.Chew) 81 mg PO BEDTIME [facility] Last Admin: 09/10/22 20:32 Dose: 81 mg Documented By: REGINA Atorvastatin Calcium (Atorvastatin Calcium 80 Mg Tablet) 80 mg PO BEDTIME [facility] Last Admin: 09/10/22 20:31 Dose: 80 mg Documented By: REGINA Bupropion HCl (Bupropion Hcl Xl 150 Mg Tab.Er.24h) 150 mg PO DAILY [facility] Last Admin: 09/11/22 08:05 Dose: 150 mg Documented By: ARIADNEEMA Enoxaparin Sodium (Enoxaparin Sodium 30 Mg/0.3 Ml Syringe) 30 mg SUBCUT Q24H [facility] Last Admin: 09/11/22 08:04 Dose: 30 mg Documented By: COTEMA Fluticasone/Vilanterol (Fluticasone/Vilanterol 100/25 Blst.W.Dev) 1 puff INHALE RDAILY [facility] Last Admin: 09/11/22 09:14 Dose: 1 puff Documented By: ZIYAD Gabapentin (Gabapentin 100 Mg Capsule) 200 mg PO BID [facility] Last Admin: 09/11/22 08:05 Dose: 200 mg Documented By: ETTA Glucose (Glucose Gel 15 Gm Gel..Gram.) 15 gm PO Q15M PRN; Protocol PRN Reason: per Hypoglycemia Standing Ord. Dextrose (D10) 250 mls @ 750 mls/hr IV Q15M PRN; Protocol PRN Reason: per Hypoglycemia Standing Ord. Ibuprofen (Ibuprofen 400 Mg Tablet) 400 mg PO Q6H PRN PRN Reason: Fever or Pain, Mild (Pain Scale 1-3) Insulin Human Lispro (Insulin Lispro 100 Unit/Ml 3 Ml Vial) 0 unit SUBCUT QIDACHS [facility]; Protocol Last Admin: 09/11/22 11:37 Dose: 4 unit Documented By: ETTA Isosorbide Mononitrate (Isosorbide Mononitrate 30 Mg Tab.Er.24h) 30 mg PO DAILY [facility]; Protocol Last Admin: 09/11/22 08:05 Dose: 30 mg Documented By: ETTA Lisinopril (Lisinopril 2.5 Mg Tablet) 2.5 mg PO BEDTIME [facility]; Protocol Last Admin: 09/10/22 20:32 Dose: 2.5 mg Documented By: REGINA Loratadine (Loratadine 10 Mg Tablet) 10 mg PO DAILY [facility] Last Admin: 09/11/22 08:05 Dose: 10 mg Documented By: ETTA Lorazepam (Lorazepam 0.5 Mg Tablet) 0.5 mg PO BEDTIME PRN PRN Reason: anxiety Magnesium Hydroxide (Milk Of Magnesia 30 Ml Oral.Susp) 30 ml PO DAILY PRN PRN Reason: Constipation Methylprednisolone Sodium Succinate (Methylprednisolone Sod Succ 40 Mg/Ml Vial) 40 mg IVPUSH Q8H [facility] Last Admin: 09/11/22 13:49 Dose: 40 mg Documented By: ETTA Multivitamins/Vitamin C (Multivitamin Tablet) 1 tab PO BEDTIME [facility] Last Admin: 09/10/22 20:32 Dose: 1 tab Documented By: REGINA Nicotine Polacrilex (Nicotine Polacrilex Lozenge 2 Mg Lozenge) 2 mg BUCCAL Q4H PRN PRN Reason: nicotine cravings Nitroglycerin (Nitroglycerin 0.4 Mg Tab.Subl) 0.4 mg SUBLINGUAL Q5MX3 PRN PRN Reason: CHEST PAIN Nystatin (Nystatin Powder 15 Gm Bottle) 1 appl TOPICAL TID [facility]; Protocol Last Admin: 09/11/22 13:44 Dose: Not Given Documented By: COTEMA Non-Admin Reason: Patient Refused Ondansetron HCl (Ondansetron Hcl 4 Mg/2 Ml Vial) 4 mg IVPUSH Q8H PRN PRN Reason: Nausea and Vomiting Sodium Chloride (0.9 % Sodium Chloride Flush 3 Ml Syringe) 3 ml IVFLUSH QSHIFT [facility] Last Admin: 09/11/22 13:50 Dose: 3 ml Documented By: ETTA Tiotropium [place] (Tiotropium [place] 18 Mcg Cap.W.Dev) 1 puff INHALE RDAILY [facility] Last Admin: 09/11/22 09:14 Dose: 1 puff Documented By: ZIYAD Topiramate (Topiramate 100 Mg Tablet) 100 mg PO BID [facility] Last Admin: 09/11/22 08:04 Dose: 100 mg Documented By: ARIADNEEMA Ursodiol (Ursodiol 300 Mg Capsule) 600 mg PO BID [facility] Last Admin: 09/11/22 08:05 Dose: 600 mg Documented By: ETTA Vitamin D (Cholecalciferol (Vitamin D3) 25 Mcg Tablet) 25 mcg PO BEDTIME [facility] Last Admin: 09/10/22 20:31 Dose: 25 mcg Documented By: REGINA Zolpidem Tartrate (Zolpidem Tartrate 5 Mg Tablet) 5 mg PO BEDTIME PRN PRN Reason: Insomnia Last Admin: 09/10/22 22:28 Dose: 5 mg Documented By: REGINA Labs 09/10/22 05:04 09/10/22 05:04 Labs: Laboratory Results - last 24 hr 09/10/22 09/11/22 09/11/22 21:43 07:20 11:12 POC Glucose 257 H 244 H 215 H Microbiology Microbiology Results: Microbiology 09/10/22 Unknown Urine Culture - Final Urine clean catch - Urine quint[place] top No growth. 09/10/22 08:39 Blood Culture - Preliminary Blood - Venous No growth after 24 hours. 09/10/22 08:39 Blood Culture - Preliminary Blood - Venous No growth after 24 hours. Assessment and Plan (1) COPD (chronic obstructive pulmonary disease) with acute bronchitis: Status: Acute (2) DM type 2 (diabetes mellitus, type 2): Status: Acute (3) CAD (coronary artery disease): Status: Acute Plan 71 yo F with a PMH of COPD who is an active smoker presenting to the ED with respiratory symptoms suggesting acute exacerbation of COPD. She has improved with EMS/ED treatments but still not improved enough for discharge home and hence will be admitted under observation. 1.Acute exacerbation of COPD without hypoxia. -increase Solu-Medrol to 60 mg q.6 hours -add ceftriaxone/azithromycin as patient bringing up sputum -titrate O2 to maintain sats 90% or greater -DuoNebs scheduled 2.CAD -asymptomatic -imdur, ASA, zestril, statin 3.DiabetesII -restart metformin as per outpatient dosing -lispro correctional scale -adjust as indicated Full Code Anthonyx Requires ongoing hospitalization for IV antibiotics/steroids to treat acute exacerbation of COPD Time Spent With Patient Time: Total time managing care of this patient today ____ minutes. Quality Stroke Does the patient have a stroke diagnosis?: No VTE Prior VTE?: No VTE Risk Level:: Medical - moderate - high VTE Device Contraindication: Treatment Not Indicated VTE Drug Contraindication: N/A - Med Ordered
[2022-09-11] MEDS: cefTRIAXone sodium 1 GM in 0.9 % Sodium Chloride 50 ML IV (15:22)
[2022-09-11] MEDS: methylPREDNISolone Sod Succ 40 MG/ML VIAL 60 MG IVPUSH ×2 (15:23→20:29)
[2022-09-11] MEDS: Azithromycin 500 MG TABLET PO (15:23)
[2022-09-11 16:09] LABS: Glucose, Whole Blood 230 mg/dL (60-115)
[2022-09-11] MEDS: Ibuprofen 400 MG TABLET PO (19:13)
[2022-09-11] MEDS: Atorvastatin Calcium 80 MG TABLET PO (20:29)
[2022-09-11] MEDS: lisinopriL 2.5 MG TABLET PO (20:29)
[2022-09-11] MEDS: Cholecalciferol (Vitamin D3) 25 MCG TABLET PO (20:30)
[2022-09-11] MEDS: Aspirin 81 MG TAB.CHEW PO (20:30)
[2022-09-11] MEDS: Multivitamin TABLET 1 TAB PO (20:30)
[2022-09-11 20:47] LABS: Glucose, Whole Blood 276 mg/dL (60-115)
[2022-09-12] VITALS (11 sets, daily range): BP systolic 95–128; BP diastolic 48–61; PULSE 74–101; RESP 15–20; TEMP 36.1–36.5; O2SAT 85–98
[2022-09-12] MEDS: methylPREDNISolone Sod Succ 40 MG/ML VIAL 60 MG IVPUSH ×3 (03:00→14:42)
[2022-09-12 06:09] LABS: MANUAL DIFF FLAG NO
[2022-09-12 06:14] LABS: Basophils Percent Auto 0.1 % (0-2); Eosinophils Percent Auto 0.1 % (0-4); Hematocrit 32.8 % (37.0-47.0); Hemoglobin 9.7 g/dl (12.0-16.0); Imm Gran Abs Auto 0.12 X10*3/uL (0.00-0.03); Lymphocytes Absolute Auto 1.1 X10*3/uL (1.2-4.9); Lymphocytes Percent Auto 9.3 % (20-40); Mean Corpuscular HGB Conc 29.6 g/dl (31.0-35.0); Mean Platelet Volume 10.8 fL (9.4-12.3); Monocytes Absolute Auto 0.3 X10*3/uL (0.1-1.2); Monocytes Percent Auto 2.7 % (2-11); Neutrophils Absolute Auto 10.2 x10*3/uL (2.0-8.3); Neutrophils Percent Auto 86.8 % (45-73); Platelet Count 324 X10*3/uL (160-400); Red Blood Count 4.05 X10*6/uL (4.20-5.50); Red Cell Distribution Width 16.8 % (11.0-16.0); White Blood Count 11.8 X10*3/uL (4.8-10.8)
[2022-09-12 06:45] LABS: Alanine Aminotransferase 17 U/L (0-31); Albumin Level 3.1 g/dL (3.5-5.0); Alkaline Phosphatase 111 U/L (39-117); Anion Gap 14 (12-20); Aspartate Amino Transferase 11 U/L (5-31); Bilirubin Total 0.2 mg/dL (0.0-1.0); Blood Urea Nitrogen 27 mg/dL (9-16); Carbon Dioxide 22 mmol/L (22-29); Chloride 103 mmol/L (96-108); Creatinine Clr Calc Pharmacy 43.5; Estimated Glomerular Filt Rate 51; Glucose Fasting 197 mg/dL (60-99); Potassium 4.7 mmol/L (3.3-5.1); Sodium 134 mmol/L (135-145); Total Protein 5.7 g/dL (6.5-8.0)
[2022-09-12 07:25] LABS: Glucose, Whole Blood 189 mg/dL (60-115)
[2022-09-12] MEDS: Fluticasone/Vilanterol 100/25 BLST.W.DEV 1 PUFF INHALE (07:58)
[2022-09-12] MEDS: Albuterol/Iprat 2.5/0.5MG 3 ML AMPUL.NEB INHALE ×4 (07:58→19:53)
[2022-09-12] MEDS: Insulin Lispro 100 UNIT/ML 3 ML VIAL SUBCUT ×4 (08:25→21:05)
[2022-09-12] MEDS: UrsodioL 300 MG CAPSULE 600 MG PO ×2 (08:26→20:55)
[2022-09-12] MEDS: buPROPion HCl XL 150 MG TAB.ER.24H PO (08:27)
[2022-09-12] MEDS: Loratadine 10 MG TABLET PO (08:27)
[2022-09-12] MEDS: Topiramate 100 MG TABLET PO ×2 (08:27→20:55)
[2022-09-12] MEDS: Gabapentin 100 MG CAPSULE 200 MG PO ×2 (08:27→20:54)
[2022-09-12] MEDS: amLODIPine Besylate 5 MG TABLET PO (08:27)
[2022-09-12] MEDS: Isosorbide Mononitrate 30 MG TAB.ER.24H PO (08:27)
[2022-09-12] MEDS: 0.9 % Sodium Chloride Flush 3 ML SYRINGE IVFLUSH ×2 (08:28→16:51)
[2022-09-12] MEDS: Enoxaparin Sodium 30 MG/0.3 ML SYRINGE SUBCUT (08:28)
[2022-09-12 11:26] LABS: Glucose, Whole Blood 228 mg/dL (60-115)
[2022-09-12] MEDS: Azithromycin 500 MG TABLET PO (14:42)
[2022-09-12] MEDS: cefTRIAXone sodium 1 GM in 0.9 % Sodium Chloride 50 ML IV (14:43)
--- NOTE | 2022-09-12 15:20 | HO.PM.IMPN ---
Subjective Subjective Date of Service: 09/12/22 Interval History: Notes some improvement overnight. Less short of breath when ambulates to bathroom Review of Systems Denies chest pain Denies shortness of breath Denies nausea vomiting diarrhea Denies fever chills Physical Exam Vital Signs: Vital Signs: Last Vital Signs Temp 97.1 F 09/12/22 15:02 Pulse 81 09/12/22 15:02 Resp 20 09/12/22 15:02 BP 113/56 L 09/12/22 15:02 Pulse Ox 97 09/12/22 15:02 O2 Del Method Nasal Cannula 09/12/22 15:02 O2 Flow Rate 2 09/12/22 15:02 BMI result Body Mass Index 21.7 Const: Other: Awake alert no acute distress. Speaking full sentences Resp: Other: Extreme diminished at bases scattered expiratory wheezes Cardio: Other: No S4; positive S1-S2; no S3 murmurs rubs or gallops GI: Other: Soft nontender nondistended normoactive bowel sounds Extrem: Other: No edema bilaterally Objective Data Active Medications Albuterol/Ipratropium (Albuterol/Iprat 2.5/0.5mg 3 Ml Ampul.Neb) 3 ml INHALE RQ4H WHILE AWAKE [facility] Last Admin: 09/12/22 12:03 Dose: 3 ml Documented By: ZEB Amlodipine Besylate (Amlodipine Besylate 5 Mg Tablet) 5 mg PO DAILY [facility]; Protocol Last Admin: 09/12/22 08:27 Dose: 5 mg Documented By: PAO Aspirin (Aspirin 81 Mg Tab.Chew) 81 mg PO BEDTIME [facility] Last Admin: 09/11/22 20:30 Dose: 81 mg Documented By: ANNMARIE Atorvastatin Calcium (Atorvastatin Calcium 80 Mg Tablet) 80 mg PO BEDTIME [facility] Last Admin: 09/11/22 20:29 Dose: 80 mg Documented By: ANNMARIE Azithromycin (Azithromycin 500 Mg Tablet) 500 mg PO Q24H [facility] Last Admin: 09/12/22 14:42 Dose: 500 mg Documented By: PAO Bupropion HCl (Bupropion Hcl Xl 150 Mg Tab.Er.24h) 150 mg PO DAILY [facility] Last Admin: 09/12/22 08:27 Dose: 150 mg Documented By: PAO Enoxaparin Sodium (Enoxaparin Sodium 30 Mg/0.3 Ml Syringe) 30 mg SUBCUT Q24H [facility] Last Admin: 09/12/22 08:28 Dose: 30 mg Documented By: PAO Fluticasone/Vilanterol (Fluticasone/Vilanterol 100/25 Blst.W.Dev) 1 puff INHALE RDAILY [facility] Last Admin: 09/12/22 07:58 Dose: 1 puff Documented By: ZEB Gabapentin (Gabapentin 100 Mg Capsule) 200 mg PO BID [facility] Last Admin: 09/12/22 08:27 Dose: 200 mg Documented By: PAO Glucose (Glucose Gel 15 Gm Gel..Gram.) 15 gm PO Q15M PRN; Protocol PRN Reason: per Hypoglycemia Standing Ord. Dextrose (D10) 250 mls @ 750 mls/hr IV Q15M PRN; Protocol PRN Reason: per Hypoglycemia Standing Ord. Ceftriaxone Sodium 1 gm/ (Sodium Chloride) 50 mls @ 100 mls/hr IV Q24H [facility] Last Infusion: 09/12/22 15:18 Dose: 0 mls/hr Documented By: PAO Ibuprofen (Ibuprofen 400 Mg Tablet) 400 mg PO Q6H PRN PRN Reason: Fever or Pain, Mild (Pain Scale 1-3) Last Admin: 09/11/22 19:13 Dose: 400 mg Documented By: ANNMARIE Insulin Human Lispro (Insulin Lispro 100 Unit/Ml 3 Ml Vial) 0 unit SUBCUT QIDACHS [facility]; Protocol Last Admin: 09/12/22 12:15 Dose: 4 unit Documented By: PAO Isosorbide Mononitrate (Isosorbide Mononitrate 30 Mg Tab.Er.24h) 30 mg PO DAILY [facility]; Protocol Last Admin: 09/12/22 08:27 Dose: 30 mg Documented By: PAO Lisinopril (Lisinopril 2.5 Mg Tablet) 2.5 mg PO BEDTIME [facility]; Protocol Last Admin: 09/11/22 20:29 Dose: 2.5 mg Documented By: ANNMARIE Loratadine (Loratadine 10 Mg Tablet) 10 mg PO DAILY [facility] Last Admin: 09/12/22 08:27 Dose: 10 mg Documented By: PAO Lorazepam (Lorazepam 0.5 Mg Tablet) 0.5 mg PO BEDTIME PRN PRN Reason: anxiety Magnesium Hydroxide (Milk Of Magnesia 30 Ml Oral.Susp) 30 ml PO DAILY PRN PRN Reason: Constipation Methylprednisolone Sodium Succinate (Methylprednisolone Sod Succ 40 Mg/Ml Vial) 60 mg IVPUSH Q6H [facility] Last Admin: 09/12/22 14:42 Dose: 60 mg Documented By: PAO Multivitamins/Vitamin C (Multivitamin Tablet) 1 tab PO BEDTIME [facility] Last Admin: 09/11/22 20:30 Dose: 1 tab Documented By: ANNMARIE Nicotine Polacrilex (Nicotine Polacrilex Lozenge 2 Mg Lozenge) 2 mg BUCCAL Q4H PRN PRN Reason: nicotine cravings Nitroglycerin (Nitroglycerin 0.4 Mg Tab.Subl) 0.4 mg SUBLINGUAL Q5MX3 PRN PRN Reason: CHEST PAIN Nystatin (Nystatin Powder 15 Gm Bottle) 1 appl TOPICAL TID [facility]; Protocol Last Admin: 09/12/22 14:43 Dose: Not Given Documented By: PAO Non-Admin Reason: Patient Refused Ondansetron HCl (Ondansetron Hcl 4 Mg/2 Ml Vial) 4 mg IVPUSH Q8H PRN PRN Reason: Nausea and Vomiting Sodium Chloride (0.9 % Sodium Chloride Flush 3 Ml Syringe) 3 ml IVFLUSH QSHIFT [facility] Last Admin: 09/12/22 08:28 Dose: 3 ml Documented By: PAO Tiotropium [place] (Tiotropium [place] 18 Mcg Cap.W.Dev) 1 puff INHALE RDAILY [facility] Last Admin: 09/12/22 07:58 Dose: 1 puff Documented By: ZEB Topiramate (Topiramate 100 Mg Tablet) 100 mg PO BID [facility] Last Admin: 09/12/22 08:27 Dose: 100 mg Documented By: PAO Ursodiol (Ursodiol 300 Mg Capsule) 600 mg PO BID [facility] Last Admin: 09/12/22 08:26 Dose: 600 mg Documented By: PAO Vitamin D (Cholecalciferol (Vitamin D3) 25 Mcg Tablet) 25 mcg PO BEDTIME [facility] Last Admin: 09/11/22 20:30 Dose: 25 mcg Documented By: ANNMARIE Zolpidem Tartrate (Zolpidem Tartrate 5 Mg Tablet) 5 mg PO BEDTIME PRN PRN Reason: Insomnia Last Admin: 09/10/22 22:28 Dose: 5 mg Documented By: REGINA Labs 09/12/22 06:02 09/12/22 06:02 Labs: Laboratory Results - last 24 hr 09/11/22 09/11/22 09/12/22 16:05 20:17 06:02 MCV 81.0 MCH 24.0 L MCHC 29.6 L RDW 16.8 H Plt Count 324 MPV 10.8 Immature Gran % (Auto) 1.0 H Neut % (Auto) 86.8 H Lymph % (Auto) 9.3 L [place] % (Auto) 2.7 Eos % (Auto) 0.1 Baso % (Auto) 0.1 Lymph # (Auto) 1.1 L [place] # (Auto) 0.3 Eos # (Auto) 0.0 Baso # (Auto) 0.0 Abs Immat Gran (auto) 0.12 H Absolute Neuts (auto) 10.2 H Absolute Nucleated RBC 0.000 Nucleated RBC % (auto) 0.0 Anion Gap Estim Creat Clear Calc Estimated GFR POC Glucose 230 H 276 H Fasting Glucose Calcium Total Bilirubin AST ALT Alkaline Phosphatase Total Protein Albumin 09/12/22 09/12/22 09/12/22 06:02 07:20 11:20 MCV MCH MCHC RDW Plt Count MPV Immature Gran % (Auto) Neut % (Auto) Lymph % (Auto) [place] % (Auto) Eos % (Auto) Baso % (Auto) Lymph # (Auto) [place] # (Auto) Eos # (Auto) Baso # (Auto) Abs Immat Gran (auto) Absolute Neuts (auto) Absolute Nucleated RBC Nucleated RBC % (auto) Anion Gap 14 Estim Creat Clear Calc 43.5 Estimated GFR 51 POC Glucose 189 H 228 H Fasting Glucose 197 H Calcium 9.0 Total Bilirubin 0.2 AST 11 ALT 17 Alkaline Phosphatase 111 Total Protein 5.7 L Albumin 3.1 L Microbiology Microbiology Results: Microbiology 09/10/22 08:39 Blood Culture - Preliminary Blood - Venous No growth after 48 hours. 09/10/22 08:39 Blood Culture - Preliminary Blood - Venous No growth after 48 hours. 09/10/22 Unknown Urine Culture - Final Urine clean catch - Urine [place] top No growth. Assessment and Plan (1) COPD (chronic obstructive pulmonary disease) with acute bronchitis: Status: Acute (2) CAD (coronary artery disease): Status: Acute (3) DM type 2 (diabetes mellitus, type 2): Status: Acute Plan 71 yo F with a PMH of COPD who is an active smoker presenting to the ED with respiratory symptoms suggesting acute exacerbation of COPD. She has improved with EMS/ED treatments but still not improved enough for discharge home and hence will be admitted under observation. 1.Acute exacerbation of COPD with hypoxia. -Solu-Medrol to 60 mg q.6 hours.. With improvement -ceftriaxone/azithromycin (2) -titrate O2 to maintain sats 90% or greater... Qualified by respiratory for home O2 -DuoNebs scheduled 2.CAD -asymptomatic -imdur, ASA, zestril, statin 3.DiabetesII -restart metformin as per outpatient dosing -lispro correctional scale -adjust as indicated Full Code Lovenox Requires ongoing hospitalization for IV antibiotics/steroids to treat acute exacerbation of COPD Time Spent With Patient Time: Total time managing care of this patient today ____ minutes. Quality Stroke Does the patient have a stroke diagnosis?: No VTE Prior VTE?: No VTE Risk Level:: Medical - moderate - high VTE Device Contraindication: Treatment Not Indicated VTE Drug Contraindication: N/A - Med Ordered
[2022-09-12 16:12] LABS: Glucose, Whole Blood 207 mg/dL (60-115)
--- NOTE | 2022-09-12 16:21 | PC.RT ---
Rt educated and demonstrated e cylinder with pt in preperation for discharge 09/13/22. Pt able to perform and use tank without issue.
[2022-09-12] MEDS: Cholecalciferol (Vitamin D3) 25 MCG TABLET PO (20:54)
[2022-09-12] MEDS: lisinopriL 2.5 MG TABLET PO (20:54)
[2022-09-12] MEDS: Aspirin 81 MG TAB.CHEW PO (20:54)
[2022-09-12] MEDS: Atorvastatin Calcium 80 MG TABLET PO (20:55)
[2022-09-12] MEDS: Multivitamin TABLET 1 TAB PO (20:55)
[2022-09-12] MEDS: methylPREDNISolone Sod Succ 125 MG/2 ML VIAL 60 MG IVPUSH (21:05)
[2022-09-12 21:09] LABS: Glucose, Whole Blood 222 mg/dL (60-115)
[2022-09-13] VITALS (10 sets, daily range): BP systolic 100–129; BP diastolic 49–61; PULSE 78–103; RESP 16–20; TEMP 36.1–36.6; O2SAT 85–99
[2022-09-13] MEDS: methylPREDNISolone Sod Succ 125 MG/2 ML VIAL 60 MG IVPUSH ×4 (02:12→20:47)
[2022-09-13 07:21] LABS: Glucose, Whole Blood 194 mg/dL (60-115)
[2022-09-13] MEDS: Insulin Lispro 100 UNIT/ML 3 ML VIAL SUBCUT ×4 (07:52→20:49)
[2022-09-13] MEDS: UrsodioL 300 MG CAPSULE 600 MG PO ×2 (07:52→20:45)
[2022-09-13] MEDS: Gabapentin 100 MG CAPSULE 200 MG PO ×2 (07:53→20:46)
[2022-09-13] MEDS: Loratadine 10 MG TABLET PO (07:53)
[2022-09-13] MEDS: amLODIPine Besylate 5 MG TABLET PO (07:53)
[2022-09-13] MEDS: Isosorbide Mononitrate 30 MG TAB.ER.24H PO (07:53)
[2022-09-13] MEDS: Topiramate 100 MG TABLET PO ×2 (07:53→20:46)
[2022-09-13] MEDS: buPROPion HCl XL 150 MG TAB.ER.24H PO (07:53)
[2022-09-13] MEDS: Enoxaparin Sodium 30 MG/0.3 ML SYRINGE SUBCUT (07:54)
[2022-09-13] MEDS: 0.9 % Sodium Chloride Flush 3 ML SYRINGE IVFLUSH ×3 (07:54→20:48)
[2022-09-13] MEDS: Ibuprofen 400 MG TABLET PO (07:59)
[2022-09-13] MEDS: Albuterol/Iprat 2.5/0.5MG 3 ML AMPUL.NEB INHALE ×4 (08:22→21:16)
[2022-09-13] MEDS: Fluticasone/Vilanterol 100/25 BLST.W.DEV 1 PUFF INHALE (08:22)
--- NOTE | 2022-09-13 10:55 | HO.PM.IMPN ---
Subjective Subjective Date of Service: 09/13/22 Interval History: Feels worse today. Breathing essentially without change. Review of Systems Denies chest pain Denies shortness of breath Denies nausea vomiting diarrhea Denies fever chills Physical Exam Vital Signs: Vital Signs: Last Vital Signs Temp 96.9 F 09/13/22 07:03 Pulse 80 09/13/22 08:26 Resp 16 09/13/22 08:26 BP 100/52 L 09/13/22 07:03 Pulse Ox 96 09/13/22 07:15 O2 Del Method Nasal Cannula 09/13/22 07:15 O2 Flow Rate 1 09/13/22 07:15 BMI result Body Mass Index 21.7 Const: Other: Awake alert no acute distress. Speaking full sentences Resp: Other: Extreme diminished at bases scattered expiratory wheezes Cardio: Other: No S4; positive S1-S2; no S3 murmurs rubs or gallops GI: Other: Soft nontender nondistended normoactive bowel sounds Extrem: Other: No edema bilaterally Objective Data Active Medications Albuterol/Ipratropium (Albuterol/Iprat 2.5/0.5mg 3 Ml Ampul.Neb) 3 ml INHALE RQ4H WHILE AWAKE [facility] Last Admin: 09/13/22 08:22 Dose: 3 ml Documented By: ADRIANNA Amlodipine Besylate (Amlodipine Besylate 5 Mg Tablet) 5 mg PO DAILY [facility]; Protocol Last Admin: 09/13/22 07:53 Dose: 5 mg Documented By: PAO Aspirin (Aspirin 81 Mg Tab.Chew) 81 mg PO BEDTIME [facility] Last Admin: 09/12/22 20:54 Dose: 81 mg Documented By: DAVID Atorvastatin Calcium (Atorvastatin Calcium 80 Mg Tablet) 80 mg PO BEDTIME [facility] Last Admin: 09/12/22 20:55 Dose: 80 mg Documented By: DAVID Azithromycin (Azithromycin 500 Mg Tablet) 500 mg PO Q24H [facility] Last Admin: 09/12/22 14:42 Dose: 500 mg Documented By: PAO Bupropion HCl (Bupropion Hcl Xl 150 Mg Tab.Er.24h) 150 mg PO DAILY [facility] Last Admin: 09/13/22 07:53 Dose: 150 mg Documented By: PAO Enoxaparin Sodium (Enoxaparin Sodium 30 Mg/0.3 Ml Syringe) 30 mg SUBCUT Q24H [facility] Last Admin: 09/13/22 07:54 Dose: 30 mg Documented By: PAO Fluticasone/Vilanterol (Fluticasone/Vilanterol 100/25 Blst.W.Dev) 1 puff INHALE RDAILY [facility] Last Admin: 09/13/22 08:22 Dose: 1 puff Documented By: ADRIANNA Gabapentin (Gabapentin 100 Mg Capsule) 200 mg PO BID [facility] Last Admin: 09/13/22 07:53 Dose: 200 mg Documented By: PAO Glucose (Glucose Gel 15 Gm Gel..Gram.) 15 gm PO Q15M PRN; Protocol PRN Reason: per Hypoglycemia Standing Ord. Dextrose (D10) 250 mls @ 750 mls/hr IV Q15M PRN; Protocol PRN Reason: per Hypoglycemia Standing Ord. Ceftriaxone Sodium 1 gm/ (Sodium Chloride) 50 mls @ 100 mls/hr IV Q24H [facility] Last Infusion: 09/12/22 15:18 Dose: 0 mls/hr Documented By: PAO Ibuprofen (Ibuprofen 400 Mg Tablet) 400 mg PO Q6H PRN PRN Reason: Fever or Pain, Mild (Pain Scale 1-3) Last Admin: 09/13/22 07:59 Dose: 400 mg Documented By: PAO Insulin Human Lispro (Insulin Lispro 100 Unit/Ml 3 Ml Vial) 0 unit SUBCUT QIDACHS [facility]; Protocol Last Admin: 09/13/22 07:52 Dose: 2 unit Documented By: PAO Isosorbide Mononitrate (Isosorbide Mononitrate 30 Mg Tab.Er.24h) 30 mg PO DAILY [facility]; Protocol Last Admin: 09/13/22 07:53 Dose: 30 mg Documented By: PAO Lisinopril (Lisinopril 2.5 Mg Tablet) 2.5 mg PO BEDTIME [facility]; Protocol Last Admin: 09/12/22 20:54 Dose: 2.5 mg Documented By: DAVID Loratadine (Loratadine 10 Mg Tablet) 10 mg PO DAILY [facility] Last Admin: 09/13/22 07:53 Dose: 10 mg Documented By: PAO Lorazepam (Lorazepam 0.5 Mg Tablet) 0.5 mg PO BEDTIME PRN PRN Reason: anxiety Magnesium Hydroxide (Milk Of Magnesia 30 Ml Oral.Susp) 30 ml PO DAILY PRN PRN Reason: Constipation Methylprednisolone Sodium Succinate (Methylprednisolone Sod Succ 125 Mg/2 Ml Vial) 60 mg IVPUSH Q6H [facility] Last Admin: 09/13/22 07:54 Dose: 60 mg Documented By: PAO Multivitamins/Vitamin C (Multivitamin Tablet) 1 tab PO BEDTIME [facility] Last Admin: 09/12/22 20:55 Dose: 1 tab Documented By: DAVID Nicotine Polacrilex (Nicotine Polacrilex Lozenge 2 Mg Lozenge) 2 mg BUCCAL Q4H PRN PRN Reason: nicotine cravings Nitroglycerin (Nitroglycerin 0.4 Mg Tab.Subl) 0.4 mg SUBLINGUAL Q5MX3 PRN PRN Reason: CHEST PAIN Nystatin (Nystatin Powder 15 Gm Bottle) 1 appl TOPICAL TID [facility]; Protocol Last Admin: 09/13/22 07:55 Dose: Not Given Documented By: PAO Non-Admin Reason: Patient Refused Ondansetron HCl (Ondansetron Hcl 4 Mg/2 Ml Vial) 4 mg IVPUSH Q8H PRN PRN Reason: Nausea and Vomiting Sodium Chloride (0.9 % Sodium Chloride Flush 3 Ml Syringe) 3 ml IVFLUSH QSHIFT [facility] Last Admin: 09/13/22 07:54 Dose: 3 ml Documented By: PAO Tiotropium [place] (Tiotropium [place] 18 Mcg Cap.W.Dev) 1 puff INHALE RDAILY [facility] Last Admin: 09/13/22 08:22 Dose: 1 puff Documented By: ADRIANNA Topiramate (Topiramate 100 Mg Tablet) 100 mg PO BID [facility] Last Admin: 09/13/22 07:53 Dose: 100 mg Documented By: PAO Ursodiol (Ursodiol 300 Mg Capsule) 600 mg PO BID [facility] Last Admin: 09/13/22 07:52 Dose: 600 mg Documented By: PAO Vitamin D (Cholecalciferol (Vitamin D3) 25 Mcg Tablet) 25 mcg PO BEDTIME [facility] Last Admin: 09/12/22 20:54 Dose: 25 mcg Documented By: HO.N-PIERM Zolpidem Tartrate (Zolpidem Tartrate 5 Mg Tablet) 5 mg PO BEDTIME PRN PRN Reason: Insomnia Last Admin: 09/10/22 22:28 Dose: 5 mg Documented By: REGINA Labs 09/12/22 06:02 09/12/22 06:02 Labs: Laboratory Results - last 24 hr 09/12/22 09/12/22 09/12/22 11:20 16:05 20:51 POC Glucose 228 H 207 H 222 H 09/13/22 07:13 POC Glucose 194 H Microbiology Microbiology Results: Microbiology 09/10/22 08:39 Blood Culture - Preliminary Blood - Venous No growth after 48 hours. 09/10/22 08:39 Blood Culture - Preliminary Blood - Venous No growth after 48 hours. Assessment and Plan (1) COPD (chronic obstructive pulmonary disease) with acute bronchitis: Status: Acute (2) CAD (coronary artery disease): Status: Acute (3) DM type 2 (diabetes mellitus, type 2): Status: Acute Plan 71 yo F with a PMH of COPD who is an active smoker presenting to the ED with respiratory symptoms suggesting acute exacerbation of COPD. She has improved with EMS/ED treatments but still not improved enough for discharge home and hence will be admitted under observation. 1.Acute exacerbation of COPD with hypoxia. -Solu-Medrol to 60 mg q.6 hours.. With improvement -ceftriaxone/azithromycin (3) -titrate O2 to maintain sats 90% or greater... Qualified by respiratory for home O2 -DuoNebs scheduled 2.CAD -asymptomatic -imdur, ASA, zestril, statin 3.DiabetesII -restart metformin as per outpatient dosing -lispro correctional scale -adjust as indicated Full Code Lovenox Requires ongoing hospitalization for IV antibiotics/steroids to treat acute exacerbation of COPD Time Spent With Patient Time: Total time managing care of this patient today ____ minutes. Quality Stroke Does the patient have a stroke diagnosis?: No VTE Prior VTE?: No VTE Risk Level:: Medical - moderate - high VTE Device Contraindication: Treatment Not Indicated VTE Drug Contraindication: N/A - Med Ordered
[2022-09-13 11:11] LABS: Glucose, Whole Blood 236 mg/dL (60-115)
[2022-09-13] MEDS: cefTRIAXone sodium 1 GM in 0.9 % Sodium Chloride 50 ML IV (15:02)
[2022-09-13] MEDS: Azithromycin 500 MG TABLET PO (15:02)
[2022-09-13 16:29] LABS: Glucose, Whole Blood 207 mg/dL (60-115)
[2022-09-13 20:11] LABS: Glucose, Whole Blood 246 mg/dL (60-115)
[2022-09-13] MEDS: Aspirin 81 MG TAB.CHEW PO (20:45)
[2022-09-13] MEDS: Cholecalciferol (Vitamin D3) 25 MCG TABLET PO (20:46)
[2022-09-13] MEDS: Multivitamin TABLET 1 TAB PO (20:47)
[2022-09-13] MEDS: Atorvastatin Calcium 80 MG TABLET PO (20:47)
[2022-09-13] MEDS: lisinopriL 2.5 MG TABLET PO (20:47)
[2022-09-14] VITALS (10 sets, daily range): BP systolic 106–134; BP diastolic 50–71; PULSE 78–95; RESP 16–82; TEMP 36–37.1; O2SAT 95–99
[2022-09-14] MEDS: methylPREDNISolone Sod Succ 125 MG/2 ML VIAL 60 MG IVPUSH (02:41)
[2022-09-14 05:56] LABS: MANUAL DIFF FLAG NO
[2022-09-14 06:04] LABS: Basophils Percent Auto 0.1 % (0-2); Hematocrit 33.4 % (37.0-47.0); Hemoglobin 9.7 g/dl (12.0-16.0); Imm Gran Abs Auto 0.19 X10*3/uL (0.00-0.03); Imm Gran Pct Auto 2.2 % (0.0-0.4); Lymphocytes Absolute Auto 0.9 X10*3/uL (1.2-4.9); Lymphocytes Percent Auto 10.5 % (20-40); Mean Corpuscular Hemoglobin 23.8 pg (27.0-33.0); Mean Corpuscular Volume 82.1 fL (80.0-98.0); Mean Platelet Volume 10.9 fL (9.4-12.3); Monocytes Absolute Auto 0.5 X10*3/uL (0.1-1.2); Monocytes Percent Auto 5.3 % (2-11); Neutrophils Percent Auto 81.9 % (45-73); Platelet Count 351 X10*3/uL (160-400); Red Blood Count 4.07 X10*6/uL (4.20-5.50); White Blood Count 8.5 X10*3/uL (4.8-10.8)
[2022-09-14 06:33] LABS: Alanine Aminotransferase 20 U/L (0-31); Albumin Level 3.3 g/dL (3.5-5.0); Alkaline Phosphatase 90 U/L (39-117); Anion Gap 14 (12-20); Aspartate Amino Transferase 17 U/L (5-31); Bilirubin Total 0.2 mg/dL (0.0-1.0); Blood Urea Nitrogen 30 mg/dL (9-16); Calcium 9.3 mg/dL (8.4-10.2); Carbon Dioxide 24 mmol/L (22-29); Chloride 108 mmol/L (96-108); Creatinine Clr Calc Pharmacy 48.6; Estimated Glomerular Filt Rate 58; Glucose Fasting 197 mg/dL (60-99); Potassium 4.8 mmol/L (3.3-5.1); Sodium 141 mmol/L (135-145); Total Protein 5.9 g/dL (6.5-8.0)
[2022-09-14 07:41] LABS: Glucose, Whole Blood 196 mg/dL (60-115)
[2022-09-14] MEDS: Enoxaparin Sodium 30 MG/0.3 ML SYRINGE SUBCUT (07:55)
[2022-09-14] MEDS: Insulin Lispro 100 UNIT/ML 3 ML VIAL SUBCUT ×4 (07:55→21:50)
[2022-09-14] MEDS: Gabapentin 100 MG CAPSULE 200 MG PO ×2 (07:56→21:49)
[2022-09-14] MEDS: Topiramate 100 MG TABLET PO ×2 (07:57→21:49)
[2022-09-14] MEDS: buPROPion HCl XL 150 MG TAB.ER.24H PO (07:57)
[2022-09-14] MEDS: amLODIPine Besylate 5 MG TABLET PO (07:57)
[2022-09-14] MEDS: Isosorbide Mononitrate 30 MG TAB.ER.24H PO (07:57)
[2022-09-14] MEDS: Loratadine 10 MG TABLET PO (07:57)
[2022-09-14] MEDS: UrsodioL 300 MG CAPSULE 600 MG PO ×2 (07:57→21:49)
[2022-09-14] MEDS: 0.9 % Sodium Chloride Flush 3 ML SYRINGE IVFLUSH ×3 (07:59→19:58)
[2022-09-14] MEDS: Albuterol/Iprat 2.5/0.5MG 3 ML AMPUL.NEB INHALE ×4 (08:15→18:56)
[2022-09-14] MEDS: Fluticasone/Vilanterol 100/25 BLST.W.DEV 1 PUFF INHALE (08:15)
[2022-09-14] MEDS: methylPREDNISolone Sod Succ 40 MG/ML VIAL 60 MG IVPUSH ×3 (10:01→21:50)
[2022-09-14 11:11] LABS: Glucose, Whole Blood 189 mg/dL (60-115)
--- NOTE | 2022-09-14 11:30 | HO.PM.IMPN ---
Subjective Subjective Date of Service: 09/14/22 Interval History: Still with some short of breath with ambulation. No other acute issues Review of Systems Denies chest pain Denies shortness of breath Denies nausea vomiting diarrhea Denies fever chills Physical Exam Vital Signs: Vital Signs: Last Vital Signs Temp 98.7 F 09/14/22 07:29 Pulse 93 09/14/22 08:17 Resp 16 09/14/22 08:17 BP 134/60 09/14/22 07:29 Pulse Ox 98 09/14/22 07:29 O2 Del Method Room Air 09/14/22 07:29 O2 Flow Rate 1 09/14/22 04:00 BMI result Body Mass Index 21.7 Const: Other: Awake alert no acute distress. Speaking full sentences Resp: Other: Extreme diminished at bases scattered expiratory wheezes Cardio: Other: No S4; positive S1-S2; no S3 murmurs rubs or gallops GI: Other: Soft nontender nondistended normoactive bowel sounds Extrem: Other: No edema bilaterally Objective Data Active Medications Albuterol/Ipratropium (Albuterol/Iprat 2.5/0.5mg 3 Ml Ampul.Neb) 3 ml INHALE RQ4H WHILE AWAKE [facility] Last Admin: 09/14/22 08:15 Dose: 3 ml Documented By: ADRIANNA Amlodipine Besylate (Amlodipine Besylate 5 Mg Tablet) 5 mg PO DAILY [facility]; Protocol Last Admin: 09/14/22 07:57 Dose: 5 mg Documented By: JOSE Aspirin (Aspirin 81 Mg Tab.Chew) 81 mg PO BEDTIME [facility] Last Admin: 09/13/22 20:45 Dose: 81 mg Documented By: IRENE Atorvastatin Calcium (Atorvastatin Calcium 80 Mg Tablet) 80 mg PO BEDTIME [facility] Last Admin: 09/13/22 20:47 Dose: 80 mg Documented By: IRENE Azithromycin (Azithromycin 500 Mg Tablet) 500 mg PO Q24H [facility] Last Admin: 09/13/22 15:02 Dose: 500 mg Documented By: PAO Bupropion HCl (Bupropion Hcl Xl 150 Mg Tab.Er.24h) 150 mg PO DAILY [facility] Last Admin: 09/14/22 07:57 Dose: 150 mg Documented By: JOSE Enoxaparin Sodium (Enoxaparin Sodium 30 Mg/0.3 Ml Syringe) 30 mg SUBCUT Q24H [facility] Last Admin: 09/14/22 07:55 Dose: 30 mg Documented By: JOSE Fluticasone/Vilanterol (Fluticasone/Vilanterol 100/25 Blst.W.Dev) 1 puff INHALE RDAILY [facility] Last Admin: 09/14/22 08:15 Dose: 1 puff Documented By: ADRIANNA Gabapentin (Gabapentin 100 Mg Capsule) 200 mg PO BID [facility] Last Admin: 09/14/22 07:56 Dose: 200 mg Documented By: JOSE Glucose (Glucose Gel 15 Gm Gel..Gram.) 15 gm PO Q15M PRN; Protocol PRN Reason: per Hypoglycemia Standing Ord. Dextrose (D10) 250 mls @ 750 mls/hr IV Q15M PRN; Protocol PRN Reason: per Hypoglycemia Standing Ord. Ceftriaxone Sodium 1 gm/ (Sodium Chloride) 50 mls @ 100 mls/hr IV Q24H [facility] Last Infusion: 09/13/22 15:34 Dose: 0 mls/hr Documented By: PAO Ibuprofen (Ibuprofen 400 Mg Tablet) 400 mg PO Q6H PRN PRN Reason: Fever or Pain, Mild (Pain Scale 1-3) Last Admin: 09/13/22 07:59 Dose: 400 mg Documented By: PAO Insulin Human Lispro (Insulin Lispro 100 Unit/Ml 3 Ml Vial) 0 unit SUBCUT QIDACHS [facility]; Protocol Last Admin: 09/14/22 07:55 Dose: 2 unit Documented By: JOSE Isosorbide Mononitrate (Isosorbide Mononitrate 30 Mg Tab.Er.24h) 30 mg PO DAILY [facility]; Protocol Last Admin: 09/14/22 07:57 Dose: 30 mg Documented By: JOSE Lisinopril (Lisinopril 2.5 Mg Tablet) 2.5 mg PO BEDTIME [facility]; Protocol Last Admin: 09/13/22 20:47 Dose: 2.5 mg Documented By: CINDYORALB Loratadine (Loratadine 10 Mg Tablet) 10 mg PO DAILY [facility] Last Admin: 09/14/22 07:57 Dose: 10 mg Documented By: JOSE Lorazepam (Lorazepam 0.5 Mg Tablet) 0.5 mg PO BEDTIME PRN PRN Reason: anxiety Magnesium Hydroxide (Milk Of Magnesia 30 Ml Oral.Susp) 30 ml PO DAILY PRN PRN Reason: Constipation Methylprednisolone Sodium Succinate (Methylprednisolone Sod Succ 40 Mg/Ml Vial) 60 mg IVPUSH Q6H [facility] Last Admin: 09/14/22 10:01 Dose: 60 mg Documented By: JOSE Multivitamins/Vitamin C (Multivitamin Tablet) 1 tab PO BEDTIME [facility] Last Admin: 09/13/22 20:47 Dose: 1 tab Documented By: IRENE Nicotine Polacrilex (Nicotine Polacrilex Lozenge 2 Mg Lozenge) 2 mg BUCCAL Q4H PRN PRN Reason: nicotine cravings Nitroglycerin (Nitroglycerin 0.4 Mg Tab.Subl) 0.4 mg SUBLINGUAL Q5MX3 PRN PRN Reason: CHEST PAIN Nystatin (Nystatin Powder 15 Gm Bottle) 1 appl TOPICAL TID [facility]; Protocol Last Admin: 09/14/22 10:01 Dose: Not Given Documented By: JOSE Non-Admin Reason: pt states not needed Ondansetron HCl (Ondansetron Hcl 4 Mg/2 Ml Vial) 4 mg IVPUSH Q8H PRN PRN Reason: Nausea and Vomiting Sodium Chloride (0.9 % Sodium Chloride Flush 3 Ml Syringe) 3 ml IVFLUSH QSHIFT [facility] Last Admin: 09/14/22 07:59 Dose: 3 ml Documented By: JOSE Tiotropium [place] (Tiotropium [place] 18 Mcg Cap.W.Dev) 1 puff INHALE RDAILY [facility] Last Admin: 09/14/22 08:15 Dose: 1 puff Documented By: ADRIANNA Topiramate (Topiramate 100 Mg Tablet) 100 mg PO BID [facility] Last Admin: 09/14/22 07:57 Dose: 100 mg Documented By: JOSE Ursodiol (Ursodiol 300 Mg Capsule) 600 mg PO BID [facility] Last Admin: 09/14/22 07:57 Dose: 600 mg Documented By: JOSE Vitamin D (Cholecalciferol (Vitamin D3) 25 Mcg Tablet) 25 mcg PO BEDTIME [facility] Last Admin: 09/13/22 20:46 Dose: 25 mcg Documented By: IRENE Zolpidem Tartrate (Zolpidem Tartrate 5 Mg Tablet) 5 mg PO BEDTIME PRN PRN Reason: Insomnia Last Admin: 09/10/22 22:28 Dose: 5 mg Documented By: REGINA Labs 09/14/22 05:36 09/14/22 05:36 Labs: Laboratory Results - last 24 hr 09/13/22 09/13/22 09/14/22 16:25 19:58 05:36 MCV 82.1 MCH 23.8 L MCHC 29.0 L RDW 17.0 H Plt Count 351 MPV 10.9 Immature Gran % (Auto) 2.2 H Neut % (Auto) 81.9 H Lymph % (Auto) 10.5 L [place] % (Auto) 5.3 Eos % (Auto) 0.0 Baso % (Auto) 0.1 Lymph # (Auto) 0.9 L [place] # (Auto) 0.5 Eos # (Auto) 0.0 Baso # (Auto) 0.0 Abs Immat Gran (auto) 0.19 H Absolute Neuts (auto) 7.0 Absolute Nucleated RBC 0.000 Nucleated RBC % (auto) 0.0 Anion Gap Estim Creat Clear Calc Estimated GFR POC Glucose 207 H 246 H Fasting Glucose Calcium Total Bilirubin AST ALT Alkaline Phosphatase Total Protein Albumin 09/14/22 09/14/22 09/14/22 05:36 07:20 11:01 MCV MCH MCHC RDW Plt Count MPV Immature Gran % (Auto) Neut % (Auto) Lymph % (Auto) [place] % (Auto) Eos % (Auto) Baso % (Auto) Lymph # (Auto) [place] # (Auto) Eos # (Auto) Baso # (Auto) Abs Immat Gran (auto) Absolute Neuts (auto) Absolute Nucleated RBC Nucleated RBC % (auto) Anion Gap 14 Estim Creat Clear Calc 48.6 Estimated GFR 58 POC Glucose 196 H 189 H Fasting Glucose 197 H Calcium 9.3 Total Bilirubin 0.2 AST 17 ALT 20 Alkaline Phosphatase 90 Total Protein 5.9 L Albumin 3.3 L Assessment and Plan (1) COPD (chronic obstructive pulmonary disease) with acute bronchitis: Status: Acute (2) CAD (coronary artery disease): Status: Acute (3) Diabetic polyneuropathy associated with type 2 diabetes mellitus: Status: Acute Plan 71 yo F with a PMH of COPD who is an active smoker presenting to the ED with respiratory symptoms suggesting acute exacerbation of COPD. She has improved with EMS/ED treatments but still not improved enough for discharge home and hence will be admitted under observation. 1.Acute exacerbation of COPD with hypoxia. -Solu-Medrol to 60 mg q.6 hours.. Additional 24 hours -ceftriaxone/azithromycin (4) -titrate O2 to maintain sats 90% or greater... Qualified by respiratory for home O2 -DuoNebs scheduled 2.CAD -asymptomatic -imdur, ASA, zestril, statin 3.DiabetesII -restart metformin as per outpatient dosing -lispro correctional scale -adjust as indicated Full Code Leif Requires ongoing hospitalization for IV antibiotics/steroids to treat acute exacerbation of COPD Time Spent With Patient Time: Total time managing care of this patient today ____ minutes. Quality Stroke Does the patient have a stroke diagnosis?: No VTE Prior VTE?: No VTE Risk Level:: Medical - moderate - high VTE Device Contraindication: Treatment Not Indicated VTE Drug Contraindication: N/A - Med Ordered
[2022-09-14] MEDS: cefTRIAXone sodium 1 GM in 0.9 % Sodium Chloride 50 ML IV (13:35)
[2022-09-14] MEDS: Azithromycin 500 MG TABLET PO (13:35)
[2022-09-14 16:21] LABS: Glucose, Whole Blood 229 mg/dL (60-115)
[2022-09-14 20:14] LABS: Glucose, Whole Blood 282 mg/dL (60-115)
[2022-09-14] MEDS: lisinopriL 2.5 MG TABLET PO (21:49)
[2022-09-14] MEDS: Aspirin 81 MG TAB.CHEW PO (21:49)
[2022-09-14] MEDS: Atorvastatin Calcium 80 MG TABLET PO (21:49)
[2022-09-14] MEDS: Cholecalciferol (Vitamin D3) 25 MCG TABLET PO (21:50)
[2022-09-14] MEDS: Multivitamin TABLET 1 TAB PO (21:50)
[2022-09-15 03:42] VITALS: BP 113/56; PULSE 90; RESP 18; TEMP 36.8; O2SAT 96
[2022-09-15] MEDS: methylPREDNISolone Sod Succ 40 MG/ML VIAL 60 MG IVPUSH ×2 (03:53→08:25)
[2022-09-15 07:34] LABS: Glucose, Whole Blood 210 mg/dL (60-115)
[2022-09-15] MEDS: Fluticasone/Vilanterol 100/25 BLST.W.DEV 1 PUFF INHALE (07:37)
[2022-09-15 07:39] VITALS: PULSE 90; RESP 18
[2022-09-15] MEDS: Albuterol/Iprat 2.5/0.5MG 3 ML AMPUL.NEB INHALE (07:45)
[2022-09-15 07:57] VITALS: BP 130/59; PULSE 83; RESP 18; TEMP 36.7; O2SAT 95
[2022-09-15] MEDS: Topiramate 100 MG TABLET PO (08:25)
[2022-09-15] MEDS: Isosorbide Mononitrate 30 MG TAB.ER.24H PO (08:25)
[2022-09-15] MEDS: Gabapentin 100 MG CAPSULE 200 MG PO (08:25)
[2022-09-15] MEDS: Loratadine 10 MG TABLET PO (08:26)
[2022-09-15] MEDS: buPROPion HCl XL 150 MG TAB.ER.24H PO (08:26)
[2022-09-15] MEDS: Enoxaparin Sodium 30 MG/0.3 ML SYRINGE SUBCUT (08:26)
[2022-09-15] MEDS: UrsodioL 300 MG CAPSULE 600 MG PO (08:26)
[2022-09-15] MEDS: amLODIPine Besylate 5 MG TABLET PO (08:26)
[2022-09-15] MEDS: Insulin Lispro 100 UNIT/ML 3 ML VIAL SUBCUT ×2 (08:26→12:14)
[2022-09-15] MEDS: 0.9 % Sodium Chloride Flush 3 ML SYRINGE IVFLUSH (08:26)
[2022-09-15 11:26] LABS: Glucose, Whole Blood 163 mg/dL (60-115)
[2022-09-15 11:51] VITALS: PULSE 102; PULSE 89; PULSE 92; O2SAT 89; O2SAT 90; O2SAT 92
[2022-09-15 11:53] VITALS: BP 115/54; PULSE 90; RESP 18; TEMP 36.2; O2SAT 92
--- NOTE | 2022-09-15 12:45 | P.DS_ITS ---
DS: Providers Provider Date of Service: 09/15/22 Date of admission: 09/11/22 10:44 Date of discharge: 09/15/22 Primary care physician: Linda Matthews MD DS: Diagnosis Discharge Diagnosis (1) COPD (chronic obstructive pulmonary disease) with acute bronchitis: Status: Acute (2) CAD (coronary artery disease): Status: Acute (3) Diabetic polyneuropathy associated with type 2 diabetes mellitus: Status: Acute DS: Summary Hospital Course Hospital Course: 72 yo F with a PMH of COPD, CAD, DM, HTN, active Tobacco use (4 to 6 cig/day), Cervical stenosis who presents to the ED with increasing shortness of breath, chest tightness for? 2 days? and not getting relief with Trelegy albuterol and DuoNeb. She has cough with? phlegm. She has no fever or chills. She has had no inpatient admission for more than a year.? Work up in ED: no PNA on CXR, nl WBC, no hypoxia. Treated with Duoneb, IV Solu-medrol, magneseium and Ceftriaxone. Hospital Course Patient admitted to [facility] [place] started on ceftriaxone and azithromycin. She was also started on pulse dose Solu-Medrol. DuoNebs q.4 hours while awake; slow to respond to therapy. At this point she feels well and left to return to home but still has an O2 requirement. States she was trying to get home O2 from pulmonology; pulmonary qualified with ambulatory O2 sat. At this point she is medically acceptable for discharge will be discharged on a course of Ceftin and a prednisone taper. She can follow-up with PCP in office in 2 weeks Time Spent with Patient Time attestation: Total time managing care of this patient today ____ minutes. Discharge coordination time: Greater than 30 minutes Quality: Safe Use of Opioids Does Pt have an Active Cancer Diagnosis on the Problem List?: No Quality: Stroke Does the patient have a stroke diagnosis?: No Physical Exam Vital Signs: Vital Signs: Last Vital Signs Temp 97.2 F 09/15/22 11:53 Pulse 90 09/15/22 11:53 Resp 18 09/15/22 11:53 BP 115/54 L 09/15/22 11:53 Pulse Ox 92 09/15/22 11:53 O2 Del Method Room Air 09/15/22 11:53 O2 Flow Rate 1 09/15/22 07:57 BMI result Body Mass Index 21.7 Const: Other: Awake alert no acute distress. Speaking full sentences Resp: Other: Diminished at bases however improved since admission. Scattered expiratory wheezes Cardio: Other: No S4; positive S1-S2; no S3 murmurs rubs or gallops GI: Other: Soft nontender nondistended normoactive bowel sounds Extrem: Other: No edema bilaterally DS: Data Data Completed and Pending Completed studies during hospitalization [Text1]: Procedures Assistance with Respiratory Ventilation, Less than 24 Consecutive Hours, Continuous Positive Airway Pressure (01/06/22) Labs on day of discharge: Laboratory Results - last 24 hr 09/14/22 09/14/22 09/15/22 16:16 20:03 07:28 POC Glucose 229 H 282 H 210 H 09/15/22 11:21 POC Glucose 163 H Discharge Plan Discharge Anticipated Discharge Date/Time: 09/15/22 12:01 Patient Disposition: Home Health Service Discharge Diagnosis: COPD exacerbation Referrals: Linad Matthews MD [Primary Care Provider] - 1 Week Discharge Medications: New cefuroxime axetil 500 mg tablet 500 mg PO BID 7 Days Qty: 14 0RF prednisone 10 mg tablet See Rx Instructions .Route .COMPLEX Qty: 45 0RF Rx Instructions: 10 mg orally; 5 tabs p.o. daily x3 days; 4 tabs p.o. daily x3 days; 3 tabs daily x3 days; 2 tabs daily x3 days; 1 tab daily x3 days Continued topiramate 100 mg tablet 100 mg PO BID Qty: 180 3RF (DME) lancets [FreeStyle Lancets] 28 gauge misc See Rx Instructions .Route Qty: 100 3RF Rx Instructions: test blood sugar once a day ursodiol 500 mg tablet 500 mg PO BID Qty: 90 2RF (DME) FreeStyle Lite Strips Strip See Rx Instructions .Route Qty: 100 3RF Rx Instructions: test once a day lisinopril 2.5 mg tablet 2.5 mg PO BEDTIME Qty: 90 3RF cyanocobalamin (vitamin B-12) 1,000 mcg tablet 2,000 mcg PO BEDTIME Qty: 180 3RF gabapentin 100 mg capsule 200 mg PO BID Qty: 360 3RF Trelegy Ellipta 100-62.5-25 mcg blister with device 1 inh inhalation DAILY Qty: 180 3RF albuterol sulfate 2.5 mg /3 mL (0.083 %) solution for nebulization 2.5 mg inhalation Q4-6H PRN (Reason: for wheezing) Qty: 180 0RF nystatin 100,000 unit/gram powder 1 appl topical TID Qty: 60 3RF acetaminophen [Tylenol] 325 mg tablet 325 mg PO Q6H PRN (Reason: pain) Qty: 90 0RF cholecalciferol (vitamin D3) 25 mcg (1,000 unit) tablet 25 mcg PO BEDTIME Qty: 90 3RF Combivent Respimat 20-100 mcg/actuation mist 1 puff inhalation Q6H 30 Days Qty: 4 3RF albuterol sulfate 90 mcg/actuation HFA aerosol inhaler 2 puff PO Q4-6H PRN (Reason: for wheezing) Qty: 1 3RF nitroglycerin 0.4 mg tablet, sublingual 1 tab sublingual NEEDED atorvastatin 80 mg tablet 80 mg PO BEDTIME aspirin 81 mg tablet,chewable 1 tab PO BEDTIME nicotine (polacrilex) 2 mg lozenge 2 mg buccal Q4-8H PRN (Reason: nicotine cravings) Qty: 72 0RF lorazepam [Ativan] 0.5 mg tablet 0.5 mg PO BEDTIME PRN (Reason: anxiety) Qty: 10 0RF prednisone 5 mg Tablet 5 mg PO BID bupropion HCl 150 mg Tablet Extended Release 24 Hr 150 mg PO QAM metformin 750 mg Tablet Extended Release 24 Hr 750 mg PO DAILY isosorbide mononitrate 30 mg tablet extended release 24 hr 30 mg PO DAILY amlodipine 5 mg tablet 5 mg PO DAILY (DME) lancets [TRUEplus Lancets] 33 gauge misc See Rx Instructions .ROUTE DAILY Qty: 100 Rx Instructions: As directed loratadine [Claritin] 10 mg tablet 10 mg PO DAILY Qty: 90 0RF zolpidem 5 mg tablet 5 mg PO BEDTIME PRN (Reason: Insomnia) multivitamin [Daily Multi-Vitamin] Tablet 1 tab PO BEDTIME Mucinex 1,200 mg tablet extended release 12hr 1,200 mg PO BID 30 Days Qty: 60 4RF ipratropium-albuterol 0.5 mg-3 mg(2.5 mg base)/3 mL solution for nebulization 3 ml inhalation QID 30 Days Qty: 360 3RF Discharge Orders: Discharge Order (Routine); Ordered 09/15/22 Ordered By: Nathaniel Ladd Diet: Advance to usual diet Activity on Discharge: As tolerated Stand Alone Forms: Patient Portal Discharge page Care Plan Goals: Resume home medicines as taken previous hospitalization Health Concerns: Ceftin 500 mg twice daily for 7 days, prednisone taper as ordered Plan of Treatment: Follow-up with PCP in 2 weeks Assessment: See discharge summary
--- NOTE | 2022-09-15 13:15 | MHC.CM.PN ---
Addendum entered by Ellie Torres 09/15/22 14:14: [facility] PROVIDE SERVICES Original Note: PT WILL DC HOME TODAY WITH [facility] REFERRAL SENT TO [facility] AWAITING RESPONSE
--- NOTE | 2022-09-15 13:23 | W.MHC.F2F ---
Service Date Service Date: 09/15/22 Encounter Date of encounter: 09/15/22 Encounter: Acute hospitalization Reasons for Services Signs and symptoms assessed: Breath sounds an O2 saturation Reason for senior living: medication management and other (Monitor O2 sats and lung sounds) Homebound: Leaving the home is medically contraindicated at this time without the asist of a device and/or another person due th the listed conditions above and below. Reason homebound: unsteady gait / fall risk and shortness of breath with minimal effort Certification: Based on the above findings, I certify that this patient is confined to the home and needs intermittent senior living care, physical therapy and/or speech therapy, or continues to need occupational therapy. The patient is under my care, and I have initiated the establishment of the plan of care. The patient will be followed by a physician who will periodically review the plan of care. Time Spent With Patient Time: Total time managing care of this patient today ____ minutes.
== END 2022-09-15 14:38 | disposition home health service (06) | DRG 191 ==
LOC: HO.ED 08:00 → HO.EDOVER 08:02 → HO.S3 18:54
PROVIDERS: Admitting Provider Internal Medicine; Emergency Provider Internal Medicine; PCP Internal Medicine; Visit Provider Hospitalist
DX: J44.0 Chronic obstructive pulmonary disease with (acute) lower respiratory infection (principal); E87.21 Acute metabolic acidosis; J44.1 Chronic obstructive pulmonary disease with (acute) exacerbation; I25.10 Atherosclerotic heart disease of native coronary artery without angina pectoris; E11.42 Type 2 diabetes mellitus with diabetic polyneuropathy; M48.02 Spinal stenosis, cervical region; J20.9 Acute bronchitis, unspecified; E78.5 Hyperlipidemia, unspecified; F17.210 Nicotine dependence, cigarettes, uncomplicated; Z71.6 Tobacco abuse counseling; Z88.0 Allergy status to penicillin; Z88.2 Allergy status to sulfonamides; Z88.5 Allergy status to narcotic agent; Z88.7 Allergy status to serum and vaccine; Z79.82 Long term (current) use of aspirin; Z79.51 Long term (current) use of inhaled steroids; Z79.52 Long term (current) use of systemic steroids; Z79.899 Other long term (current) drug therapy
CPT/HCPCS: 36415; 71045; 80048; 80053; 81001; 82947; 83605; 84484; 85025; 87040; 87086; 93005; 94640; 99221; 99285; J0696; J1650; J2920; J2930

== ENCOUNTER → 2022-09-16 11:27 | Outpatient (BNVA) | payer MEDICARE, MEDICAID, SELFPAY | PROVIDERS: PCP Internal Medicine; Visit Provider Urology | DX: C67.9 Malignant neoplasm of bladder, unspecified (principal); N39.0 Urinary tract infection, site not specified; Z79.82 Long term (current) use of aspirin; Z09 Encounter for follow-up examination after completed treatment for conditions other than malignant neoplasm | CPT/HCPCS: 99212 ==

== ENCOUNTER → 2022-09-18 13:51 | Outpatient (BNV) | payer MEDICARE, MEDICAID, SELFPAY | PROVIDERS: PCP Internal Medicine; Visit Provider Internal Medicine Medical Oncology | DX: C67.9 Malignant neoplasm of bladder, unspecified (principal) | CPT/HCPCS: 99204; 99213; 99214 ==

== ENCOUNTER → 2022-10-02 12:38 | Outpatient (BNVA) | payer MEDICARE, MEDICAID, SELFPAY | PROVIDERS: PCP Internal Medicine; Referring Provider Urology; Visit Provider Surgery | DX: K66.8 Other specified disorders of peritoneum (principal) | CPT/HCPCS: 99202 ==

== ENCOUNTER → 2022-10-21 13:51 | Outpatient (BNVA) | payer MEDICARE, MEDICAID, SELFPAY | PROVIDERS: PCP Internal Medicine; Visit Provider Internal Medicine | DX: J44.9 Chronic obstructive pulmonary disease, unspecified (principal); F41.9 Anxiety disorder, unspecified; F17.210 Nicotine dependence, cigarettes, uncomplicated | CPT/HCPCS: 99212 ==

== ENCOUNTER 2022-10-22 11:46 | Day surgery (SDC) | payer MEDICARE, MEDICAID, SELFPAY ==
--- NOTE | ~2022-10-22 | CT_ITS ---
PROCEDURE: CT GUIDED BIOPSY, ABDOMINAL MASS CLINICAL INFORMATION: Peritoneal mass. History of bladder cancer. COMPARISON: Previous CT urogram July 2022 TECHNIQUE: Procedure and risks and benefits including bleeding, infection and injury to the adjacent bowel was discussed with the patient and informed consent was obtained. Axial images through the abdomen were performed. The left side of the abdomen was prepped and draped in the usual sterile fashion. Using CT guidance and a coaxial system, access to the peritoneal mass just deep to the abdominal wall was obtained. Multiple, approximately 8 20-gauge core biopsies were obtained. Specimen was placed in formalin and flow cytometry solution. This CT examination was performed using dose optimization techniques as appropriate, variously including the following: *Automated exposure control *Adjustment of mA and/or kV according to patient size (this includes techniques or standardized protocols for targeted exams where dose is matched to indication/reason for exam; i.e. extremities or head) *Use of iterative reconstruction technique DLP: 164 mGy-cm FINDINGS: There is a 6.5 cm soft tissue mass just deep to the left abdominal wall that was targeted for biopsy. Postprocedure imaging demonstrates no complication. CT/CT biopsy abdomen percutaneous IMPRESSION: CT-guided left abdominal biopsy.
[2022-10-22 12:31] LABS: Basophils Absolute Auto 0.1 X10*3/uL (0.0-0.2); Basophils Percent Auto 0.8 % (0-2); Eosinophils Absolute Auto 0.3 X10*3/uL (0.0-0.4); Eosinophils Percent Auto 2.6 % (0-4); Imm Gran Abs Auto 0.07 X10*3/uL (0.00-0.03); Imm Gran Pct Auto 0.6 % (0.0-0.4); Lymphocytes Absolute Auto 3.2 X10*3/uL (1.2-4.9); Lymphocytes Percent Auto 25.6 % (20-40); MANUAL DIFF FLAG NO; Mean Corpuscular HGB Conc 29.7 g/dl (31.0-35.0); Mean Corpuscular Hemoglobin 23.9 pg (27.0-33.0); Mean Corpuscular Volume 80.3 fL (80.0-98.0); Mean Platelet Volume 10.5 fL (9.4-12.3); Monocytes Percent Auto 7.8 % (2-11); Neutrophils Absolute Auto 7.9 x10*3/uL (2.0-8.3); Neutrophils Percent Auto 62.6 % (45-73); Platelet Count 324 X10*3/uL (160-400); Red Blood Count 4.61 X10*6/uL (4.20-5.50); Red Cell Distribution Width 16.5 % (11.0-16.0); White Blood Count 12.6 X10*3/uL (4.8-10.8)
[2022-10-22 12:35] LABS: INTERNATIONAL NORM RATIO 0.9 (0.9-1.1); Prothrombin Time 10.7 SEC (10.0-13.1)
[2022-10-22 12:38] LABS: Partial Thromboplastin Time 28.7 SEC (26.0-36.4)
[2022-10-22 12:42] VITALS: BMI 26.1
[2022-10-22 12:58] LABS: Glucose, Whole Blood 160 mg/dL (60-115)
[2022-10-22 14:40] VITALS: BP 133/58; PULSE 97; RESP 16; TEMP 36.6; O2SAT 94
[2022-10-22 14:55] VITALS: BP 132/61; PULSE 99; RESP 16; O2SAT 96
[2022-10-22 15:10] VITALS: BP 141/58; PULSE 89; RESP 16; O2SAT 94
[2022-10-22 15:39] VITALS: BP 153/63; PULSE 91; RESP 18; TEMP 37; O2SAT 96
== END 2022-10-22 15:44 | disposition home or self-care (01) ==
PROVIDERS: Radiology Diagnostic Radiology; PCP Internal Medicine; Visit Provider Surgery
DX: C48.2 Malignant neoplasm of peritoneum, unspecified (principal); C67.9 Malignant neoplasm of bladder, unspecified; J44.9 Chronic obstructive pulmonary disease, unspecified; I25.10 Atherosclerotic heart disease of native coronary artery without angina pectoris; Z95.5 Presence of coronary angioplasty implant and graft; I10 Essential (primary) hypertension; E55.9 Vitamin D deficiency, unspecified; E53.8 Deficiency of other specified B group vitamins; E78.5 Hyperlipidemia, unspecified; K75.81 Nonalcoholic steatohepatitis (NASH); R91.1 Solitary pulmonary nodule; E11.42 Type 2 diabetes mellitus with diabetic polyneuropathy; Z79.84 Long term (current) use of oral hypoglycemic drugs; Z88.1 Allergy status to other antibiotic agents; Z88.2 Allergy status to sulfonamides; Z88.8 Allergy status to other drugs, medicaments and biological substances; Z88.7 Allergy status to serum and vaccine; Z79.82 Long term (current) use of aspirin; Z99.81 Dependence on supplemental oxygen; Z79.899 Other long term (current) drug therapy; F17.200 Nicotine dependence, unspecified, uncomplicated
CPT/HCPCS: 36415; 49180; 77012; 82947; 85025; 85610; 85730; 88300; 88305; 88341; 88342; 88360

== ENCOUNTER 2022-10-29 14:22 | Outpatient (REF) | payer MEDICARE, MEDICAID, SELFPAY ==
[2022-10-29 18:08] LABS: MANUAL DIFF FLAG NO
[2022-10-29 18:14] LABS: Basophils Absolute Auto 0.1 X10*3/uL (0.0-0.2); Basophils Percent Auto 0.8 % (0-2); Eosinophils Absolute Auto 0.3 X10*3/uL (0.0-0.4); Eosinophils Percent Auto 2.5 % (0-4); Hematocrit 38.6 % (37.0-47.0); Hemoglobin 11.4 g/dl (12.0-16.0); Imm Gran Abs Auto 0.06 X10*3/uL (0.00-0.03); Imm Gran Pct Auto 0.5 % (0.0-0.4); Lymphocytes Absolute Auto 2.8 X10*3/uL (1.2-4.9); Lymphocytes Percent Auto 24.6 % (20-40); Mean Corpuscular HGB Conc 29.5 g/dl (31.0-35.0); Mean Corpuscular Hemoglobin 24.1 pg (27.0-33.0); Mean Corpuscular Volume 81.6 fL (80.0-98.0); Mean Platelet Volume 11.3 fL (9.4-12.3); Monocytes Absolute Auto 0.8 X10*3/uL (0.1-1.2); Monocytes Percent Auto 7.3 % (2-11); Neutrophils Absolute Auto 7.3 x10*3/uL (2.0-8.3); Neutrophils Percent Auto 64.3 % (45-73); Platelet Count 395 X10*3/uL (160-400); Red Blood Count 4.73 X10*6/uL (4.20-5.50); Red Cell Distribution Width 16.6 % (11.0-16.0); White Blood Count 11.4 X10*3/uL (4.8-10.8)
[2022-10-29 18:24] LABS: Alanine Aminotransferase 16 U/L (0-31); Albumin Level 3.8 g/dL (3.5-5.0); Alkaline Phosphatase 129 U/L (39-117); Anion Gap 15 (12-20); Aspartate Amino Transferase 29 U/L (5-31); Bilirubin Total 0.3 mg/dL (0.0-1.0); Blood Urea Nitrogen 7 mg/dL (9-16); Calcium 9.5 mg/dL (8.4-10.2); Carbon Dioxide 27 mmol/L (22-29); Chloride 102 mmol/L (96-108); Estimated Glomerular Filt Rate > 60; Glucose Random 221 mg/dL (60-115); Potassium 4.3 mmol/L (3.3-5.1); Sodium 140 mmol/L (135-145); Total Protein 7.6 g/dL (6.5-8.0)
[2022-10-30 05:21] LABS: Estimated Average Glucose 160 mg/dL; Hemoglobin A1c % 7.2 %
== END 2022-10-29 14:23 | disposition home or self-care (01) ==
LOC: HO.HMGCLDS 14:22
PROVIDERS: PCP Internal Medicine; Visit Provider Internal Medicine
DX: E11.9 Type 2 diabetes mellitus without complications (principal); J44.9 Chronic obstructive pulmonary disease, unspecified; K66.8 Other specified disorders of peritoneum
CPT/HCPCS: 36415; 80053; 83036; 85025

== ENCOUNTER → 2022-10-30 14:21 | Outpatient (BNVA) | payer MEDICARE, MEDICAID, SELFPAY | PROVIDERS: PCP Internal Medicine; Visit Provider Surgery | DX: K66.8 Other specified disorders of peritoneum (principal); C76.3 Malignant neoplasm of pelvis | CPT/HCPCS: 99212 ==

== ENCOUNTER 2022-11-04 07:53 | Outpatient (REF) | payer MEDICARE, MEDICAID, SELFPAY ==
--- NOTE | ~2022-11-04 | CT_ITS ---
EXAMINATION: CT CHEST, ABDOMEN AND PELVIS WITH CONTRAST CLINICAL INFORMATION: History of bladder cancer. COMPARISON: 08/08/2022 and 03/21/2022 TECHNIQUE: Multidetector volumetric imaging was performed of the chest, abdomen and pelvis following administration of 85 mL Omnipaque 350 intravenous contrast. Oral contrast was administered. Sagittal and coronal reformatted images were obtained on the technologist's workstation. This CT examination was performed using dose optimization techniques as appropriate, variously including the following: *Automated exposure control *Adjustment of mA and/or kV according to patient size (this includes techniques or standardized protocols for targeted exams where dose is matched to indication/reason for exam; i.e. extremities or head) *Use of iterative reconstruction technique DLP: 280 mGy-cm FINDINGS: CHEST: MEDIASTINUM: Imaged thyroid gland is unremarkable. No bulky axillary, hilar or mediastinal lymphadenopathy. Great vessels are of normal caliber. Heart size is normal. No pericardial effusion. CORONARY ARTERY CALCIFICATION: Moderate. PLEURA: There is no pleural effusion. LUNGS: Moderate centrilobular emphysema. 8 mm nodule right lower lobe on image 282 of series 7. 6 mm subpleural nodule left lower lobe on image 155 of series 7. No focal consolidation. Central airways are patent. ABDOMEN AND PELVIS: LIVER AND BILIARY TREE: The liver is enlarged and diffusely decreased in attenuation. Nodular surface contour. No focal hepatic lesion. No biliary ductal dilatation. GALLBLADDER: Unremarkable. PANCREAS: No ductal dilatation. SPLEEN: Not enlarged. Indeterminate 1.5 cm peripheral hypodensity. ADRENAL GLANDS: No adrenal masses. KIDNEYS AND URETERS: The kidneys are symmetric in size and enhancement. There is a stable 1.2 cm hypodensity lower pole right kidney which remains indeterminate. GASTROINTESTINAL TRACT: No small bowel obstruction. VASCULAR: Normal caliber abdominal aorta. Marked atherosclerotic vascular calcification. Stable 1.2 cm calcified splenic artery aneurysm. LYMPH NODES: Gastrohepatic ligament mass measures 3.2 x 2.5 x 3.3 cm on image 18 of series 3. Mesenteric mass measures 3.7 x 4.0 x 5.5 cm on image 36 of series 3. Left upper quadrant mass measures 6.8 x 5.8 x 10.5 cm on image 45 of series 3. Left para-aortic lymph node measures 1.2 x 1.5 cm. Multilobulated soft tissue mass in the pelvis measures 9.3 x 6.2 x 8.0 cm on image 61 of series 3. This mass extends posteriorly with loss of fat plane with the rectosigmoid colon. This mass extends inferiorly with loss of fat plane with the vaginal cuff. This mass extends superiorly from the dome of the urinary bladder. There are scattered peritoneal nodules. FREE FLUID: No free fluid. PELVIC VISCERA: Uterus is surgically absent. OSSEOUS STRUCTURES: Unremarkable. CT/CT abdomen pelvis w IV con IMPRESSION: Large multilobulated soft tissue mass arising from the bladder dome measuring 9.2 x 6.2 x 8.0 cm. There is direct extension/involvement of the rectosigmoid colon and vaginal cuff. There is likely metastatic involvement with multiple peritoneal masses and extensive retroperitoneal and gastrohepatic ligament lymphadenopathy. Disease progression with interval increase in size of pulmonary nodules. New indeterminate 1.5 cm hypodensity in the spleen. Hepatomegaly and hepatic steatosis. Nodular surface contour of the liver. This likely represents chronic liver disease.
[2022-11-04] MEDS: Barium Sulfate Oral (Vanilla) 450 ML ORAL.SUSP 850 ML PO (10:49)
[2022-11-04] MEDS: iohexoL 350 MG/ML 100 ML INFUS..BTL 85 ML IV (10:49)
== END 2022-11-04 07:54 | disposition home or self-care (01) ==
LOC: HO.CT 07:53
PROVIDERS: PCP Internal Medicine; Visit Provider Internal Medicine
DX: C67.9 Malignant neoplasm of bladder, unspecified (principal)
CPT/HCPCS: 71260; 74177; Q9967

== ENCOUNTER 2022-12-22 13:17 | Outpatient (AMB) | payer MEDICARE, MEDICAID, SELFPAY ==
[2022-12-22 13:29] VITALS: BP 110/50; PULSE 102; O2SAT 94; BMI 24.7
--- NOTE | 2022-12-22 13:29 | A.OFFVIS_ITS ---
Intake Vital Signs 12/22/22 13:29 Height 5 ft 1 in Weight 131 lb BMI 24.7 BP 110/50 L Blood Pressure Location Lt brachial Position Sitting Pulse 102 H Pulse Source Pulse Oximeter Pulse Oximetry (%) 94 Oxygen Delivery Method Room Air Intake Visit Reasons: copd Intake Note: pt is here for follow up and is under some stress, cancer has come back and was told she needs chemo, but nothing is set up yet. She is not sure of the exact dx. She needs an explanation on primatene mist. 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 Allergies amoxicillin [AMOXICILLIN] Allergy (Mild, Verified 12/22/22 13:35) DIARRHEA Darvocet A500 Allergy (Unknown, Verified 12/22/22 13:35) upset stomach melatonin Allergy (Unknown, Verified 12/22/22 13:35) Nausea and Vomiting oxycodone [From PERCOCET] Allergy (Unknown, Verified 12/22/22 13:35) NAUSEA,VOMITING propoxyphene Allergy (Unknown, Verified 12/22/22 13:35) Stomach Upset influenza virus vaccine, specific [FLU VACCINE] Adverse Reaction (Intermediate, Verified 12/22/22 13:35) NAUSEA,DIARRHEA lactose [LACTOSE] Adverse Reaction (Intermediate, Verified 12/22/22 13:35) GI UPSET metronidazole [From FLAGYL] Adverse Reaction (Intermediate, Verified 12/22/22 13:35) NAUSEA & VOMITING Sulfa (Sulfonamide Antibiotics) Adverse Reaction (Intermediate, Verified 12/22/22 13:35) EYE DROPS (ONLY)-IRITIS Medication List - Last Reconciled 12/22/22 by Mey Logan MD acetaminophen (Tylenol) 325 mg PO Q6H PRN albuterol sulfate 90 mcg/actuation 2 puffs PO Q4-6H PRN amlodipine 5 mg PO DAILY aspirin 1 tab PO BEDTIME atorvastatin 80 mg PO BEDTIME blood sugar diagnostic (FreeStyle Lite Strips) test once a day bupropion HCl 150 mg PO QAM cholecalciferol (vitamin D3) 25 mcg PO BEDTIME cyanocobalamin (vitamin B-12) 2,000 mcg (2 x 1,000 mcg) PO BEDTIME epinephrine 0.125 mg/actuation (Primatene Mist) 1 puff inhalation Q4H PRN flash glucose scanning reader ([employer] 14 Day [place]) As directed nmgfjzvedqf-gaqchepwh-fiqymfsw 100-62.5-25 mcg (Trelegy Ellipta) 1 inh inhalation DAILY gabapentin 200 mg (2 x 100 mg) PO BID guaifenesin ER (Mucinex) 1,200 mg PO BID 30 days ipratropium-albuterol 0.5 mg-3 mg(2.5 mg base)/3 mL 3 mL inhalation QID 30 days isosorbide mononitrate ER 30 mg PO DAILY lancets (FreeStyle Lancets) test blood sugar once a day lancets (TRUEplus Lancets) As directed lisinopril 2.5 mg PO BEDTIME loratadine (Claritin) 10 mg PO DAILY metformin ER 750 mg PO DAILY multivitamin (Daily Multi-Vitamin tablet) 1 tab PO BEDTIME nitroglycerin 1 tab sublingual NEEDED nystatin 1 appl topical TID oxycodone 5 mg PO Q8H PRN Oxygen Home Use As directed sennosides (Senokot Extra Strength) 17.2 mg PO BID topiramate 100 mg PO BID ursodiol 500 mg PO BID zolpidem 5 mg PO BEDTIME PRN Do you need a note to return to daycare/school/sports/work: No HPI copd HPI Details 72 years old female a known case of advanced chronic obstructive pulmonary disease and ongoing smoker, comes today for her routine follow-up. Breathing narvaez she is doing okay except for mild intermittent cough and also when she goes outdoors she gets short of breath. She is using Trelegy 1 inhalation daily and on top of that she uses albuterol inhaler a few times during the day. She also uses Primatene mist, a few times during the day and usually following albuterol if it does not help much. So for she has had no side effects fro.m this combination. She is under lot of stress due to recurrence of the bladder cancer. This is the excuse that she gives for increase in the smoking of cigarettes, from half a pack she is up to 3/4 of a pack daily. Claims that she is under lot of stress and does not sleep much at night . 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 Smoker Vertigo Vitamin B 12 deficiency Vitamin B12 deficiency Surgical History Fusion of spine of cervical region History of carpal tunnel release History of heart artery stent History of hysterectomy Family History Mother CVD (cardiovascular disease) CVA (cerebral vascular accident) Father CVD (cardiovascular disease) Sister Breast cancer Family/Other Breast cancer Social History Household Members: Other Household Members Other:: roommate Housing: House Do you presently have visiting nurse or other home services: No Alcohol intake: never Patient Tobacco Use Status: Current everyday Tobacco user Tobacco use type: Cigarette Cigarette Packs Per Day: 0.5 Cigarettes Per Day: 6 Years Smoked: 62 yrs e-Cigarette/Vaping Use: Never Used Second Hand Smoke Exposure: No Advance Directives Date on File: 11/14/21 service: No Current occupational status: retired Current occupation: Right Handed Cognitive needs: No Hearing needs: No Vision needs: Yes Review of Systems Const All systems reviewed & are unremarkable except as noted in HPI and below Eyes Reports no additional complaints ENT Reports no additional complaints Card Reports chest pain (Off and on) and Reports dyspnea on exertion Resp Reports as per HPI and Reports dyspnea on exertion GI Reports no additional complaints Reports no additional complaints Skin/Breast Reports system reviewed and no additional complaints, except as documented Neuro Reports no additional complaints Psych Reports no additional complaints Physical Exam Vital Signs: Last Vital Signs Pulse 102 H 12/22/22 13:29 BP 110/50 L 12/22/22 13:29 Pulse Ox 94 12/22/22 13:29 Oxygen Delivery Method Room Air 12/22/22 13:29 BMI result Body Mass Index 24.7 Last Vital Signs Temp 97.6 F 12/02/21 07:44 Pulse 107 H 12/02/21 08:30 Resp 20 12/02/21 08:30 BP 141/60 H 12/02/21 07:44 Pulse Ox 94 12/02/21 07:44 O2 Del Method 12/02/21 07:44 BMI result Body Mass Index 27.1 Const General: comfortable, no acute distress, alert and awake Orientation/consciousness: patient oriented x3 HEENT Head: Yes normal to inspection General nose exam: No nasal polyps present and No nasal discharge present Face and sinus: Yes sinuses nontender Mouth: oropharynx normal Throat: Yes posterior oropharynx normal Eyes General: appearance normal, both eyes and all related structures Neck Neck: Yes normal visual inspection, Yes no lymphadenopathy, Yes trachea midline and Yes no JVD Thyroid: Thyroid normal Chest Chest palpation & inspection: normal inspection of the chest, normal palpation of entire chest wall and no tenderness Resp Other: PERCUSSION NOTE RESONANT, BREATH SOUNDS ARE EQUAL ON BOTH SIDES BUT VERY DISTANT WITH PROLONGED EXPIRATORY PHASE. HAS A FEW SCATTERED WHEEZES BUT NO CREPITATIONS ARE HEARD AT THIS TIME. Cardio Palpation: normal PMI Rate: regular rate Rhythm: regular rhythm Heart sounds: no gallops and no murmurs GI Palpation (GI): Soft to palpation, nontender, No hepatosplenomegaly present and no masses Auscultation: normal bowel sounds Back/Spine/Pelvis Thoracic/Lumbar Spine: thoracic and lumbar spine normal to inspection Skin General skin exam: no rashes or lesions noted Neuro General: patient oriented x3 and no focal motor deficits Cranial nerves: Yes CN's II-XII intact bilaterally Extrem General: Yes normal to inspection, Yes no clubbing, cyanosis or edema and Yes no calf tenderness Psych Appearance: grossly normal and well kempt Speech and movement: Normal speech and movement present Assessment & Plan Assessment & Plan (1) COPD (chronic obstructive pulmonary disease): Comment: SHE HAS LONG-STANDING COPD, RELATED TO HER LONG-TIME SMOKING. H/O FREQUENT ADMISSIONS WITH ACUTE EXACERBATIONS. TX : TRELEGY 1 INHALATION DAILY. ALBUTEROL HFA 2 PUFFS Q 4-6 HOURS P.R.N. WHEN OUTDOORS. DUO-NEB SOLUTION IN THE NEB Q 4-6 HRS WHILE AWAKE. ADVISED THAT SHE SHOULD USE ALBUTEROL HFA 2 PUFFS Q 4-6 HOURS P.R.N. AND ALTERNATE WITH THE DUONEB UDs . ADVISED NOT TO USE PRIMATENE MIST , SIDE EFFECTS , ESPECIALLY ANXIETY AND TACHYCARDIA EXPLAINED . MOST IMPORTANT STEP IS TO STOP SMOKING COMPLETELY, HOWEVER SHE HAS TRIED HER BEST WITHOUT FULL SUCCESS. USE MUCINEX 1200 MG B.I.D. PRN ADVISE THAT SHE SHOULD USE OXYGEN 2 L/MINUTE , P.R.N., WHEN SHE FEELS MORE SHORT OF BREATH, INSTEAD OF USING ALBUTEROL HFA ARE PRIMATENE MIST. * Continue to participate in pulmonary rehab program. Code(s): J44.9 - Chronic obstructive pulmonary disease, unspecified (2) Smoker: Comment: up to 10-15 CIGARETTES A DAY. ONCE AGAIN TALKED TO HER ABOUT SMOKING AND ADVISED HER TO QUIT COMPLETELY, USE NICOTINE LOZENGE 2 MG Q 4-8 HOURS P.R.N.. Code(s): F17.200 - Nicotine dependence, unspecified, uncomplicated Coding Level of Care Code Est Pt Level 3 (58970) Diagnoses COPD (chronic obstructive pulmonary disease) J44.9 Smoker F17.200
== END 2022-12-22 13:44 | disposition home or self-care (01) ==
PROVIDERS: PCP Internal Medicine; Visit Provider Internal Medicine
DX: J44.9 Chronic obstructive pulmonary disease, unspecified (principal); F17.200 Nicotine dependence, unspecified, uncomplicated
CPT/HCPCS: 99213

== ENCOUNTER → 2022-12-22 13:17 | Outpatient (BNVA) | payer MEDICARE, MEDICAID, SELFPAY | PROVIDERS: PCP Internal Medicine; Visit Provider Internal Medicine | DX: J44.9 Chronic obstructive pulmonary disease, unspecified (principal); C76.3 Malignant neoplasm of pelvis; E11.42 Type 2 diabetes mellitus with diabetic polyneuropathy; F17.210 Nicotine dependence, cigarettes, uncomplicated; Z79.82 Long term (current) use of aspirin; Z79.4 Long term (current) use of insulin; Z79.891 Long term (current) use of opiate analgesic; Z79.899 Other long term (current) drug therapy | CPT/HCPCS: 99212 ==

== ENCOUNTER 2022-12-23 11:52 | Outpatient (AMB) | payer MEDICARE, SELFPAY ==
--- NOTE | 2022-12-23 12:04 | A.OFFPC_ITS ---
Vital Signs 12/23/22 12:05 Height 5 ft 1 in Weight 132 lb BMI 24.9 BP 110/52 L Blood Pressure Location Rt brachial Position Sitting Pulse 104 H Pulse Source Pulse Oximeter Pulse Oximetry (%) 97 Oxygen Delivery Method Room Air Intake Visit Reasons: 4m follow up Intake Note: pt is unsure of any of her medications Allergies amoxicillin [AMOXICILLIN] Allergy (Mild, Verified 12/23/22 12:08) DIARRHEA Darvocet A500 Allergy (Unknown, Verified 12/23/22 12:08) upset stomach melatonin Allergy (Unknown, Verified 12/23/22 12:08) Nausea and Vomiting oxycodone [From PERCOCET] Allergy (Unknown, Verified 12/23/22 12:08) NAUSEA,VOMITING propoxyphene Allergy (Unknown, Verified 12/23/22 12:08) Stomach Upset influenza virus vaccine, specific [FLU VACCINE] Adverse Reaction (Intermediate, Verified 12/23/22 12:08) NAUSEA,DIARRHEA lactose [LACTOSE] Adverse Reaction (Intermediate, Verified 12/23/22 12:08) GI UPSET metronidazole [From FLAGYL] Adverse Reaction (Intermediate, Verified 12/23/22 12:08) NAUSEA & VOMITING Sulfa (Sulfonamide Antibiotics) Adverse Reaction (Intermediate, Verified 12/23/22 12:08) EYE DROPS (ONLY)-IRITIS Medication List - Last Reconciled 12/23/22 by Linda Matthews MD acetaminophen (Tylenol) 325 mg PO Q6H PRN albuterol sulfate 90 mcg/actuation 2 puffs PO Q4-6H PRN amlodipine 5 mg PO DAILY aspirin 1 tab PO BEDTIME atorvastatin 80 mg PO BEDTIME blood sugar diagnostic (FreeStyle Lite Strips) test once a day bupropion HCl 150 mg PO QAM cholecalciferol (vitamin D3) 25 mcg PO BEDTIME cyanocobalamin (vitamin B-12) 2,000 mcg (2 x 1,000 mcg) PO BEDTIME epinephrine 0.125 mg/actuation (Primatene Mist) 1 puff inhalation Q4H PRN flash glucose scanning reader ([employer] 14 Day [place]) As directed yknbzzxapxi-axofvbevm-eqdctons 100-62.5-25 mcg (Trelegy Ellipta) 1 inh i nhalation DAILY gabapentin 200 mg (2 x 100 mg) PO BID guaifenesin ER (Mucinex) 1,200 mg PO BID 30 days ipratropium-albuterol 0.5 mg-3 mg(2.5 mg base)/3 mL 3 mL inhalation QID 30 days isosorbide mononitrate ER 30 mg PO DAILY lancets (FreeStyle Lancets) test blood sugar once a day lancets (TRUEplus Lancets) As directed lisinopril 2.5 mg PO BEDTIME loratadine (Claritin) 10 mg PO DAILY metformin ER 750 mg PO DAILY multivitamin (Daily Multi-Vitamin tablet) 1 tab PO BEDTIME nitroglycerin 1 tab sublingual NEEDED nystatin 1 appl topical TID oxycodone 5 mg PO Q8H PRN Oxygen Home Use As directed sennosides (Senokot Extra Strength) 17.2 mg PO BID topiramate 100 mg PO BID ursodiol 500 mg PO BID zolpidem 5 mg PO BEDTIME PRN Tobacco use date assessed: 12/23/22 Fall risk assessment: No Falls in past year Last assessed Fall Risk: 12/23/22 Dental Screening Dental Screen Date: 12/23/22 Did you have a dental visit in the last 12 months?: No Did you have a dental problem in the last 6 months where you did not have access to dental care?: No Was dental information given to patient?: No HPI 4m follow up HPI Details Patient presents for the follow-up. She follows up with Oncology in 2 days to discuss the treatment for pelvic mass with peritoneal metastases. Patient is very anxious but has a good supportive system with her family. She is in process of finding a new psychotherapist. Patient reports poor appetite and has not been compliant with ADA diet eating sweets and chocolate. She reports occasional blood glucose readings over 200s fasting in the morning. She is not sure if she has been taking metformin. Blood pressure has been low and patient reports episodes of lightheadedness. COPD is stable on Trelegy and DuoNeb as needed. She continues to smoke up to 8 cigarettes a day. 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 Smoker Vertigo Vitamin B 12 deficiency Vitamin B12 deficiency Surgical History Fusion of spine of cervical region History of carpal tunnel release History of heart artery stent History of hysterectomy Family History Mother CVD (cardiovascular disease) CVA (cerebral vascular accident) Father CVD (cardiovascular disease) Sister Breast cancer Family/Other Breast cancer Social History Household Members: Other Household Members Other:: roommate Housing: House Do you presently have visiting nurse or other home services: No Alcohol intake: never Patient Tobacco Use Status: Current everyday Tobacco user Tobacco use type: Cigarette Cigarette Packs Per Day: 0.5 Cigarettes Per Day: 6 Years Smoked: 62 yrs e-Cigarette/Vaping Use: Never Used Second Hand Smoke Exposure: No Advance Directives Date on File: 11/14/21 service: No Current occupational status: retired Current occupation: Right Handed Cognitive needs: No Hearing needs: No Vision needs: Yes Questionnaire Thrive Questionnaire Date Thrive assessed: 08/22/22 CRISTINO-7 AMB Questionnaire CRISTINO-7 Date CRISTINO - 7 assessed: 08/22/22 Source: Developed by Drs. Alexandre Lozano, Inocencia Stone, Jonathon Sagastume and colleagues, with an educational nolvia from [employer]. Review of Systems Const All systems reviewed & are unremarkable except as noted in HPI and below Reports no additional complaints Eyes Reports no additional complaints ENT Reports no additional complaints Card Reports no additional complaints Resp Reports no additional complaints Reports no additional complaints Physical exam (Primary Care) Vital Signs: Last Vital Signs Pulse 104 H 12/23/22 12:05 BP 110/52 L 12/23/22 12:05 Pulse Ox 97 12/23/22 12:05 Oxygen Delivery Method Room Air 12/23/22 12:05 BMI result Body Mass Index 24.9 Tobacco/Smoking Status: Tobacco use Status Tobacco use date assessed 12/23/22 12/23/22 12:15 Patient Tobacco Use Status Current everyday Tobacco 12/23/22 12:15 Tobacco use type Cigarette 12/23/22 12:15 e-Cigarette/Vaping Use Never Used 12/23/22 12:15 Thrive Assessment: Date of Thrive Assessment Date Thrive assessed 08/22/22 12/23/22 12:15 Const General: anxious HENMT Head: Yes normal to inspection Neck Neck: Yes supple Resp Effort & Inspection: normal respiratory effort Auscultation: diminished lung sounds Cardio Rate: tachycardic Rhythm: regular rhythm Heart sounds: S1 normal heart sound present and S2 normal heart sound present GI Palpation (GI): Firmness to palpation present (GI), Tenderness to palpation present (GI), no guarding and Palpable mass present Auscultation: normal bowel sounds Assessment and Plan Assessment & Plan (1) DM type 2 (diabetes mellitus, type 2): Code(s): E11.9 - Type 2 diabetes mellitus without complications Plan: Patient was advised to restart metformin, ADA diet discussed with the patient. She will start monitoring her fasting blood glucose. If the glucose is persistently over 200 she will call so more medication will be added. Patient will follow-up in 2 months with a fasting labs before (2) COPD (chronic obstructive pulmonary disease): Comment: SHE HAS LONG-STANDING COPD, RELATED TO HER LONG-TIME SMOKING. H/O FREQUENT ADMISSIONS WITH ACUTE EXACERBATIONS. TX : TRELEGY 1 INHALATION DAILY. ALBUTEROL HFA 2 PUFFS Q 4-6 HOURS P.R.N. WHEN OUTDOORS. DUO-NEB SOLUTION IN THE NEB Q 4-6 HRS WHILE AWAKE. ADVISED THAT SHE SHOULD USE ALBUTEROL HFA 2 PUFFS Q 4-6 HOURS P.R.N. AND ALTERNATE WITH THE DUONEB UDs . ADVISED NOT TO USE PRIMATENE MIST , SIDE EFFECTS , ESPECIALLY ANXIETY AND TACHYCARDIA EXPLAINED . MOST IMPORTANT STEP IS TO STOP SMOKING COMPLETELY, HOWEVER SHE HAS TRIED HER BEST WITHOUT FULL SUCCESS. USE MUCINEX 1200 MG B.I.D. PRN ADVISE THAT SHE SHOULD USE OXYGEN 2 L/MINUTE , P.R.N., WHEN SHE FEELS MORE SHORT OF BREATH, INSTEAD OF USING ALBUTEROL HFA ARE PRIMATENE MIST. * Continue to participate in pulmonary rehab program. 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 She will continue lisinopril and will monitor her blood pressure at home Orders: Orders [facility]. Panel Fast 2 Months E11.9 - Type 2 diabetes mellitus without complications, E78.5 - Hyperlipidemia, unspecified, J44.9 - Chronic obstructive pulmonary disease, unspecified, K75.81 - Nonalcoholic steatohepatitis (CHRISTINE) Hemoglobin A1c 2 Months E11.9 - Type 2 diabetes mellitus without complications, E78.5 - Hyperlipidemia, unspecified, J44.9 - Chronic obstructive pulmonary disease, unspecified, K75.81 - Nonalcoholic steatohepatitis (CHRISTINE) Complete Blood Count Auto Diff 2 Months E11.9 - Type 2 diabetes mellitus without complications, E78.5 - Hyperlipidemia, unspecified, J44.9 - Chronic obstructive pulmonary disease, unspecified, K75.81 - Nonalcoholic steatohepatitis (CHRISTINE) Coding Level of Care Code Est Pt Level 4 (48650) Diagnoses DM type 2 (diabetes mellitus, type 2) E11.9 COPD (chronic obstructive pulmonary disease) J44.9 Hyperlipidemia E78.01 Hyperlipidemia type: familial hypercholesterolemia Nonalcoholic steatohepatitis (CHRISTINE) K75.81 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
[2022-12-23 12:05] VITALS: BP 110/52; PULSE 104; O2SAT 97; BMI 24.9
== END 2022-12-23 13:21 | disposition home or self-care (01) ==
PROVIDERS: Visit Provider Internal Medicine
DX: E11.9 Type 2 diabetes mellitus without complications (principal); J44.9 Chronic obstructive pulmonary disease, unspecified; C76.3 Malignant neoplasm of pelvis; I10 Essential (primary) hypertension; E78.01 Familial hypercholesterolemia; K75.81 Nonalcoholic steatohepatitis (NASH)
CPT/HCPCS: 99214

== ENCOUNTER 2022-12-24 10:47 | Outpatient (REF) | payer MEDICARE, OTHER, SELFPAY ==
[2022-12-24 13:03] LABS: MANUAL DIFF FLAG NO
[2022-12-24 13:23] LABS: Basophils Absolute Auto 0.1 X10*3/uL (0.0-0.2); Basophils Percent Auto 0.7 % (0-2); Eosinophils Absolute Auto 0.3 X10*3/uL (0.0-0.4); Eosinophils Percent Auto 2.6 % (0-4); Hematocrit 38.4 % (37.0-47.0); Hemoglobin 11.2 g/dl (12.0-16.0); Imm Gran Abs Auto 0.08 X10*3/uL (0.00-0.03); Imm Gran Pct Auto 0.7 % (0.0-0.4); Lymphocytes Absolute Auto 2.4 X10*3/uL (1.2-4.9); Lymphocytes Percent Auto 20.3 % (20-40); Mean Corpuscular HGB Conc 29.2 g/dl (31.0-35.0); Mean Corpuscular Volume 78.7 fL (80.0-98.0); Mean Platelet Volume 11.2 fL (9.4-12.3); Monocytes Percent Auto 8.6 % (2-11); Neutrophils Absolute Auto 7.9 x10*3/uL (2.0-8.3); Neutrophils Percent Auto 67.1 % (45-73); Platelet Count 415 X10*3/uL (160-400); Red Blood Count 4.88 X10*6/uL (4.20-5.50); White Blood Count 11.8 X10*3/uL (4.8-10.8)
[2022-12-24 13:54] LABS: Alanine Aminotransferase 12 U/L (0-31); Albumin Level 3.7 g/dL (3.5-5.0); Alkaline Phosphatase 124 U/L (39-117); Anion Gap 14 (12-20); Aspartate Amino Transferase 22 U/L (5-31); Bilirubin Total 0.3 mg/dL (0.0-1.0); Blood Urea Nitrogen 11 mg/dL (9-16); Calcium 9.7 mg/dL (8.4-10.2); Carbon Dioxide 26 mmol/L (22-29); Chloride 104 mmol/L (96-108); Estimated Glomerular Filt Rate > 60; Glucose Random 135 mg/dL (60-115); Potassium 4.8 mmol/L (3.3-5.1); Sodium 139 mmol/L (135-145)
== END 2022-12-24 10:48 | disposition home or self-care (01) ==
LOC: HO.HMGCLDS 10:47
PROVIDERS: PCP Internal Medicine; Visit Provider Internal Medicine Medical Oncology
DX: C76.3 Malignant neoplasm of pelvis (principal)
CPT/HCPCS: 36415; 80053; 85025

== ENCOUNTER 2022-12-30 12:10 | Outpatient (REF) | payer MEDICARE, OTHER, SELFPAY ==
--- NOTE | ~2022-12-30 | CT_ITS ---
EXAMINATION: CT ABDOMEN AND PELVIS WITH CONTRAST CLINICAL INFORMATION: Ovarian carcinoma. COMPARISON: None available. TECHNIQUE: Multidetector volumetric images were obtained from the superior aspect of the liver through the pubic symphysis following administration 85 mL of Omnipaque 350 intravenous contrast. Sagittal and coronal reformatted images were obtained on the technologist's workstation. Oral contrast: No This CT examination was performed using dose optimization techniques as appropriate, variously including the following: *Automated exposure control *Adjustment of mA and/or kV according to patient size (this includes techniques or standardized protocols for targeted exams where dose is matched to indication/reason for exam; i.e. extremities or head) *Use of iterative reconstruction technique DLP: 312.00 mGy-cm FINDINGS: LUNG BASES: The previously visualized lung base nodules are not included on this abdominal and pelvic CT. Scar at the left lung base is stable. Coronary artery calcifications are noted. There are multiple intraperitoneal metastases. In the left upper quadrant, a 11.4 x 7.9 x 7.2 cm mass measured 9.7 x 6.7 x 6.6 cm previously. As on the prior examination, there are hyperdense elements within this mass. A 5.2 x 4 cm mass in the right upper quadrant measured 4 x 3.7 cm previously. A round 14 mm mass in the right or quadrant just adjacent to the anterior tip of the liver measure 10 mm previously. A poorly defined central pelvic mass is difficult to precisely measure, as it extends from the left to the right pelvic sidewall, but adjacent to the left iliac vessels the mass measures 6.6 cm AP, previously 5.7 cm. This pelvic mass is inseparable from and likely invades the dome of the bladder and the rectosigmoid. A 4.2 x 3.1 cm right adnexal mass or perhaps a component of the larger pelvic mass measured 4.0 x 2.4 cm previously. A 34 x 25 mm soft tissue mass to the left of the celiac axis extending into the gastrohepatic ligament measure 27 x 22 mm previously. A 13 mm implant in the gastrohepatic ligament measuring 7 mm previously. There is no bowel, biliary or renal obstruction. LIVER, GALLBLADDER, AND BILIARY TREE: The liver is nodular in contour with enlargement of the left and caudate lobes indicative of underlying cirrhosis. No hepatic mass or biliary ductal dilatation is evident. The gallbladder is unremarkable with no evidence of radiopaque gallstones, gallbladder wall thickening, or obvious pericholecystic inflammatory changes. PANCREAS: A coarse pancreatic calcification is again evident. No discrete pancreatic mass or ductal dilatation is evident. SPLEEN: Unremarkable. Previously seen splenic lesion is not visualized. ADRENAL GLANDS: Unremarkable. KIDNEYS AND URETERS: The kidneys are normal in size, shape, and attenuation. No hydronephrosis, hydroureter, or calculi seen. No perinephric stranding. Several small bilateral low density renal lesions are too small to characterize but stable, the largest in the lower pole the right kidney measuring 12 mm.. There is no obstructive uropathy. Small low-density lesion extending exophytically from BLADDER: Unremarkable. GASTROINTESTINAL TRACT: The small and large bowel are unremarkable. The appendix is unremarkable. ABDOMINAL WALL: No significant hernia is appreciated. LYMPH NODES: Normal. VASCULAR: Aortoiliac atherosclerotic changes are noted. PELVIC VISCERA: Unremarkable. OSSEOUS STRUCTURES: Degenerative changes are present throughout the lumbar spine and lower dorsal spine. There are no suspicious bone lesions. CT/CT abdomen pelvis w IV con IMPRESSION: 1. Since 11/04/2022, multiple intraperitoneal, retroperitoneal and pelvic masses have increased in size compatible with disease progression. 2. No bowel, biliary or renal obstruction. 3. Nodular contour to the liver with enlargement of the left and caudate lobes consistent with cirrhosis. Fleischner guidelines were followed.
[2022-12-30] MEDS: iohexoL 350 MG/ML 100 ML INFUS..BTL IV (15:28)
== END 2022-12-30 12:11 | disposition home or self-care (01) ==
LOC: HO.CT 12:10
PROVIDERS: PCP Internal Medicine; Visit Provider Internal Medicine Medical Oncology
DX: Z13.89 Encounter for screening for other disorder (principal)
CPT/HCPCS: 74177; Q9967

== ENCOUNTER 2022-12-31 20:07 | Inpatient (IN) | payer MEDICARE, OTHER, SELFPAY ==
--- NOTE | ~2022-12-31 | XR_ITS ---
EXAMINATION: XR CHEST CLINICAL INFORMATION: Acute dyspnea COMPARISON: CT chest from 11/04/2022, chest radiograph from 09/10/2022 TECHNIQUE: Frontal view of the chest was obtained. FINDINGS: Emphysematous changes. Redemonstration of nodule involving the right lower lobe as seen on prior cross-sectional imaging. Stable elevation the left hemidiaphragm. Trace blunting of the right costophrenic recess which may represents scarring versus trace pleural effusion. Biapical pleural parenchymal scarring. No pneumothorax. Trachea is midline. Cardiomediastinal silhouette is stable. Aorta demonstrates atherosclerotic ossifications. Degenerative changes of the thoracolumbar spine. Partially visualized lower cervical spinal hardware. Degenerative arthropathy of the bilateral glenohumeral joints, right greater than left. Soft tissues are unremarkable. XR/XR chest 1V IMPRESSION: 1. Emphysematous changes. 2. Redemonstration of nodule involving the right lower lobe as seen on prior cross-sectional imaging. 3. Stable elevation the left hemidiaphragm. 4. Trace blunting of the right costophrenic recess which may represent scarring versus trace pleural effusion. 5. Biapical pleural parenchymal scarring. 6. Degenerative arthropathy of the bilateral glenohumeral joints.
--- NOTE | ~2022-12-31 | CT_ITS ---
EXAMINATION: CT CHEST WITHOUT CONTRAST CLINICAL INFORMATION: SOB COMPARISON: CT chest 12/31/2022. Chest x-ray 12/31/2022. TECHNIQUE: Multidetector volumetric CT imaging of the chest was done. Axial MIP volume rendering provided. Sagittal and coronal reformatted images were obtained. This CT examination was performed using dose optimization techniques as appropriate, variously including the following: *Automated exposure control *Adjustment of mA and/or kV according to patient size (this includes techniques or standardized protocols for targeted exams where dose is matched to indication/reason for exam; i.e. extremities or head) *Use of iterative reconstruction technique DLP: 202 mGy-cm FINDINGS: LAMINATION SPINNER: Well-expanded lungs. Examination is limited due to breathing artifact throughout the exam LUNGS: There is diffuse emphysematous changes of both lungs. A right lower lobe 7 mm nodule image 298/5 is seen, however there is considerable patient breathing artifact. Previously same nodule measured 8 mm. No additional nodules seen. There is no acute consolidation, mass or atelectasis. MEDIASTINUM: The thyroid lobes are symmetrical and normal. The central trachea and bronchi are widely patent. Small reactive lymph nodes seen in the mediastinum. No pericardial effusion seen. Heart size and the thoracic aorta is of normal caliber. CORONARY ARTERY CALCIFICATION: Moderate coronary artery calcifications are present. PLEURA: There is no pleural effusion. No pleural mass or thickening. AXILLA: Small reactive lymph nodes are seen in bilateral axilla. UPPER ABDOMEN: Visualized liver, spleen, pancreas and bilateral adrenal glands unremarkable. Focal calcification is seen in the left upper quadrant mesentery, stable OSSEOUS STRUCTURES: There is mild ventral spondylosis. No aggressive lytic or sclerotic process seen. CT/CT chest wo IV con IMPRESSION: 1. Diffuse emphysema without acute process. 2. Right lower lobe pulmonary nodule is stable. No new nodules seen. 3. No abnormal mediastinal or axillary lymph nodes seen. 4. Moderate coronary artery calcifications are stable. Fleischner guidelines were followed.
[2022-12-31 20:11] VITALS: BP 121/53; BP 144/57; PULSE 126; PULSE 127; RESP 18; TEMP 38.7; O2SAT 94; O2SAT 96; BMI 25.5
--- NOTE | 2022-12-31 20:39 | ECG_ITS ---
Test Reason : SEPSIS Blood Pressure : / mmHG Vent. Rate : 121 BPM Atrial Rate : 121 BPM P-R Int : 124 ms QRS Dur : 122 ms QT Int : 350 ms P-R-T Axes : -09 090 -18 degrees QTc Int : 497 ms Sinus tachycardia Right bundle branch block Possible Inferior infarct (cited on or before 10-SEP-2022) Abnormal ECG When compared with ECG of 10-SEP-2022 05:06, T wave inversion more evident in Inferior leads Referred By: Rafa Joel Electronically Signed By:MILKA AVITIA
--- NOTE | 2022-12-31 20:52 | ED_ITS ---
HPI - SOB/Dyspnea General Chief Complaint: Dyspnea Stated Complaint: Diff breathing, Hx of COPD Time Seen by Provider: 12/31/22 20:18 History of Present Illness HPI Narrative: 72-year-old female with history of COPD, cancer presents with shortness of breath. Symptoms started today. She is not typically on oxygen. Patient describes her symptoms as slow onset but has progressed rapidly. She denies any chest pain or cough. She denies any mucus production. She denied any fevers or chills. Symptoms appear to be worse with exertion. She denies any lower extremity edema. She denies any significant sick contacts. Patient is reportedly due to start chemotherapy next week. Per review of the files, patient has history of bladder cancer with peritoneal metastases. Patient does report chronic abdominal distension but no other symptoms at this time Related Data Home Medications Medication Instructions Recorded Confirmed multivitamin (Daily Multi-Vitamin 1 tab PO BEDTIME 12/25/20 12/31/22 tablet) aspirin 81 mg chewable tablet 1 tab PO BEDTIME 09/11/21 12/31/22 atorvastatin 80 mg tablet 80 mg PO BEDTIME 09/11/21 12/25/22 nitroglycerin 0.4 mg sublingual 1 tab sublingual Q5M PRN Chest Pain 09/11/21 12/31/22 tablet isosorbide mononitrate 30 mg 30 mg PO DAILY 09/25/21 12/25/22 tablet,extended release 24 hr lancets 33 gauge (TRUEplus Lancets) #100 ea 11/20/21 12/25/22 bupropion HCl 150 mg 24 hr tablet, 150 mg PO QAM 09/10/22 12/31/22 extended release metformin 750 mg tablet,extended 750 mg PO DAILY 09/10/22 12/31/22 release 24 hr Oxygen Home Use 09/23/22 12/25/22 pgsjwyluom-naettaabdvmen-bfbhttyo 1 tab PO Q6H PRN Headache 12/31/22 12/31/22 50 mg-325 mg-40 mg tablet ipratropium 0.5 mg-albuterol 3 mg 3 ml inhalation QID PRN Shortness 12/31/22 12/31/22 (2.5 mg base)/3 mL nebulization Of Breath soln ipratropium 20 mcg-albuterol 100 1 puff inhalation Q6H PRN 12/31/22 12/31/22 mcg/actuation mist for inhalation Shortness Of Breath (Combivent Respimat) nystatin 100,000 unit/gram topical 1 appl topical TID PRN Rash 12/31/22 12/31/22 powder prednisone 5 mg tablet 5 mg PO BID 12/31/22 12/31/22 zolpidem 10 mg tablet 10 mg PO BEDTIME 12/31/22 12/31/22 Previous Rx's Medication Instructions Recorded topiramate 100 mg tablet 100 mg PO BID #180 tabs 01/08/21 lancets 28 gauge (FreeStyle #100 ea 08/07/21 Lancets) ursodiol 500 mg tablet 500 mg PO BID #90 tabs 08/21/21 cyanocobalamin (vitamin B-12) 2,000 mcg PO BEDTIME #180 tabs 02/13/22 1,000 mcg tablet fluticasone fur. 100 mcg-umeclid 1 inh inhalation DAILY #180 ea 02/13/22 62.5 mcg-vilant 25 mcg inhalat.powder (Trelegy Ellipta) gabapentin 100 mg capsule 200 mg PO BID #360 caps 02/13/22 lisinopril 2.5 mg tablet 2.5 mg PO BEDTIME #90 tabs 02/13/22 guaifenesin 1,200 mg tablet, 1,200 mg PO BID 30 days #60 tabs 04/17/22 extended release 12 hr (Mucinex) acetaminophen 325 mg tablet 325 mg PO Q6H PRN pain #90 tabs 05/02/22 (Tylenol) cholecalciferol (vitamin D3) 25 25 mcg PO BEDTIME #90 tabs 05/30/22 mcg (1,000 unit) tablet albuterol sulfate 90 mcg/actuation 2 puff PO Q4-6H PRN for wheezing 11/18/22 aerosol inhaler #8.5 grams blood sugar diagnostic (FreeStyle #100 ea 11/28/22 Lite Strips) loratadine 10 mg tablet (Claritin) 10 mg PO DAILY #90 tabs 11/28/22 oxycodone 5 mg tablet 5 mg PO Q8H PRN Breakthrough Pain, 12/02/22 Moderate #40 tabs sennosides 17.2 mg tablet (Senokot 17.2 mg PO BID #60 tabs 12/02/22 Extra Strength) flash glucose scanning reader #1 ea 12/11/22 (Nitol Solar Karin 14 Day [place]) Allergies Allergy/AdvReac Type Severity Reaction Status Date / Time amoxicillin [AMOXICILLIN] Allergy Mild DIARRHEA Verified 12/25/22 10:32 Darvocet A500 Allergy Unknown upset Verified 12/25/22 10:32 stomach melatonin Allergy Unknown Nausea and Verified 12/25/22 10:32 Vomiting oxycodone [From PERCOCET] Allergy Unknown NAUSEA,VOMI Verified 12/25/22 10:32 TING propoxyphene Allergy Unknown Stomach Verified 12/25/22 10:32 Upset influenza virus vaccine, AdvReac Intermediate NAUSEA,DIAR Verified 12/25/22 10:32 specific WU [FLU VACCINE] lactose [LACTOSE] AdvReac Intermediate GI UPSET Verified 12/25/22 10:32 metronidazole [From FLAGYL] AdvReac Intermediate NAUSEA & Verified 12/25/22 10:32 VOMITING Sulfa (Sulfonamide AdvReac Intermediate EYE DROPS Verified 12/25/22 10:32 Antibiotics) (ONLY)-IRITIS Review of Systems Review of Systems: CONSTITUTIONAL: Denies weight loss, fever and chills. HEENT: Denies changes in vision and hearing. RESPIRATORY: + SOB - cough. CV: Denies palpitations no CP. GI: Denies abdominal pain, nausea, vomiting and diarrhea. : Denies dysuria and urinary frequency. MSK: Denies myalgia and joint pain. SKIN: Denies rash and pruritus. NEUROLOGICAL: Denies headache and syncope. PSYCHIATRIC: Denies recent changes in mood. Denies anxiety and depression. 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 Smoker Vertigo Vitamin B 12 deficiency Vitamin B12 deficiency Surgical History Fusion of spine of cervical region History of carpal tunnel release History of heart artery stent History of hysterectomy Family History Family History Mother CVD (cardiovascular disease) CVA (cerebral vascular accident) Father CVD (cardiovascular disease) Sister Breast cancer Family/Other Breast cancer Social History Social History Household Members: Other Household Members Other:: roommate Housing: House Do you presently have visiting nurse or other home services: No Alcohol intake: never Patient Tobacco Use Status: Current everyday Tobacco user Tobacco use type: Cigarette Cigarette Packs Per Day: 0.5 Cigarettes Per Day: 6 Years Smoked: 62 yrs e-Cigarette/Vaping Use: Never Used Second Hand Smoke Exposure: No Advance Directives: Yes Advance Directives on File: Yes Advance Directives Date on File: 11/14/21 service: No Current occupational status: retired Current occupation: Right Handed Cognitive needs: No Hearing needs: No Vision needs: Yes Physical Exam Vital Signs: Vital Signs: Last Vital Signs Temp 99.2 F 12/31/22 22:03 Pulse 121 H 12/31/22 22:03 Resp 18 12/31/22 22:03 BP 108/43 L 12/31/22 22:03 Pulse Ox 94 12/31/22 20:11 O2 Del Method Room Air 12/31/22 20:11 BMI result Body Mass Index 25.5 GEN: Well developed, no acute distress, alert, oriented HEENT: Normocephalic, atraumatic, normal external ears, nose appears normal, no oropharyngeal edema or exudates Eyes: Normal to appearance Neck: Supple, no lymphadenopathy Respiratory: prolonged expiration with expiratory wheezes Cardiovascular: Regular rate and rhythm, no murmurs rubs or gallops Abdomen: Soft, nontender, distended, no guarding, no rebound Back: No CVA tenderness Extremities: No clubbing cyanosis or edema Neurologic: No focal neurologic deficits, cranial nerves 2-12 intact, strength is 5/5 bilaterally Skin: No rash Course Course Course Narrative: workup is completed this time. Patient should be admitted for sepsis likely due to respiratory infections/COPD exacerbation. Reevaluation(s) Reevaluation #1: Sepsis alert, ABX ordered Time: 20:53 Reevaluation #2: reviewed imaging studies as well as reports. Patient has no later white blood cell count but that is acute on chronic. I do believe patient likely has sepsis but does not clearly meet criteria for severe sepsis. Contacting hospitalist now. Time: 22:54 Medications Administered Discontinued Medications Generic Name Dose Route Start Last Admin Trade Name Nedra PRN Reason Stop Dose Admin Acetaminophen 975 mg 12/31/22 20:39 12/31/22 21:00 Acetaminophen 325 Mg Tablet PO 12/31/22 20:40 975 mg ONCE ONE Administration Albuterol Sulfate 7.5 mg/ 0 mg 12/31/22 20:51 12/31/22 21:06 Albuterol/Ipratropium 3 ml INHALE 12/31/22 20:52 2.5 each ONCE ONE Administration Ceftriaxone Sodium 1 gm/ 50 mls @ 100 mls/hr 12/31/22 20:51 12/31/22 21:35 Sodium Chloride IV 12/31/22 21:20 100 mls/hr ONCE ONE Administration Azithromycin 500 mg/ Sodium 250 mls @ 125 mls/hr 12/31/22 20:51 12/31/22 21:35 Chloride IV 12/31/22 22:50 125 mls/hr ONCE ONE Administration Methylprednisolone Sodium Succinate 125 mg 12/31/22 20:51 12/31/22 21:39 Methylprednisolone Sod Succ 125 Mg/2 Ml Vial IVPUSH 12/31/22 20:52 125 mg ONCE ONE Administration Medical Decision Making Medical Decision Making [facility] Narrative: Patient presents with dyspnea. On exam she is very mildly hypoxic despite neck prolonged expiration and expiratory wheezes. She has history of COPD. She is not on long-term oxygen supplementation. She has no lower extremity edema. Abdomen is distended but she reports this as being cold and unchanged with no abdominal pain or tenderness. Patient is in fact febrile. Her examination is concerning for sepsis. Will order a sepsis workup on BF the patient. I will have a low threshold to start antibiotics. Differential diagnosis would include pneumonia, COVID, influenza, bronchitis, COPD exacerbation, other infectious source. Differential Diagnosis Differential Diagnoses: The differential diagnosis associated with the presentation includes ( See above) Admission/Observation Consideration of admission/observation: Escalation of care including admission/observation considered Consult Healthcare Provider Management of the patient was discussed with: Hospitalist Lab Data [facility] Lab Attestation statement: I reviewed the patient's lab results. 12/31/22 21:17 12/31/22 21:17 Labs: Lab Results 12/31/22 12/31/22 12/31/22 Range/Units 21:17 21:17 21:17 WBC 21.9 H (4.8-10.8) X10*3/uL RBC 4.79 (4.20-5.50) X10*6/uL Hgb 10.9 L (12.0-16.0) g/dl Hct 36.6 L (37.0-47.0) % MCV 76.4 L (80.0-98.0) fL MCH 22.8 L (27.0-33.0) pg MCHC 29.8 L (31.0-35.0) g/dl RDW 15.9 (11.0-16.0) % Plt Count 432 H (160-400) X10*3/uL MPV 10.6 (9.4-12.3) fL Immature Gran % (Auto) 0.5 H (0.0-0.4) % Neut % (Auto) 82.3 H (45-73) % Lymph % (Auto) 7.8 L (20-40) % [place] % (Auto) 8.8 (2-11) % Eos % (Auto) 0.1 (0-4) % Baso % (Auto) 0.5 (0-2) % Lymph # (Auto) 1.7 (1.2-4.9) X10*3/uL [place] # (Auto) 1.9 H (0.1-1.2) X10*3/uL Eos # (Auto) 0.0 (0.0-0.4) X10*3/uL Baso # (Auto) 0.1 (0.0-0.2) X10*3/uL Abs Immat Gran (auto) 0.11 H (0.00-0.03) X10*3/uL Absolute Neuts (auto) 18.0 H (2.0-8.3) x10*3/uL Absolute Nucleated RBC 0.000 (0.0-0.012) X10*3/uL Nucleated RBC % (auto) 0.0 (0.0-0.2) /100WBC Smear Tech's Comments HI TEACHER PT (11.1-13.3) SEC INR (0.9-1.1) APTT (26.0-36.4) SEC Sodium 134 L (135-145) mmol/L Potassium 4.9 (3.3-5.1) mmol/L Chloride 100 (96-108) mmol/L Carbon Dioxide 25 (22-29) mmol/L Anion Gap 14 (12-20) BUN 13 (9-16) mg/dL Creatinine 0.89 (0.5-1.4) mg/dL Estim Creat Clear Calc 46.5 Estimated GFR > 60 Random Glucose 171 H (60-115) mg/dL Lactic Acid (0.5-2.0) mmol/L Calcium 10.0 (8.4-10.2) mg/dL Total Bilirubin 0.5 (0.0-1.0) mg/dL AST 22 (5-31) U/L ALT 10 (0-31) U/L Alkaline Phosphatase 120 H (39-117) U/L B-Natriuretic Peptide (<100) pg/mL Total Protein 8.3 H (6.5-8.0) g/dL Albumin 4.0 (3.5-5.0) g/dL COVID-19 (JENNIFER) Negative (Negative) COVID-19 Clin Com See Note Influenza Type A (GABRIELA) (Negative) Influenza Type B (GABRIELA) (Negative) Influenza A & B Note 12/31/22 12/31/22 12/31/22 Range/Units 21:17 21:17 21:17 WBC (4.8-10.8) X10*3/uL RBC (4.20-5.50) X10*6/uL Hgb (12.0-16.0) g/dl Hct (37.0-47.0) % MCV (80.0-98.0) fL MCH (27.0-33.0) pg MCHC (31.0-35.0) g/dl RDW (11.0-16.0) % Plt Count (160-400) X10*3/uL MPV (9.4-12.3) fL Immature Gran % (Auto) (0.0-0.4) % Neut % (Auto) (45-73) % Lymph % (Auto) (20-40) % [place] % (Auto) (2-11) % Eos % (Auto) (0-4) % Baso % (Auto) (0-2) % Lymph # (Auto) (1.2-4.9) X10*3/uL [place] # (Auto) (0.1-1.2) X10*3/uL Eos # (Auto) (0.0-0.4) X10*3/uL Baso # (Auto) (0.0-0.2) X10*3/uL Abs Immat Gran (auto) (0.00-0.03) X10*3/uL Absolute Neuts (auto) (2.0-8.3) x10*3/uL Absolute Nucleated RBC (0.0-0.012) X10*3/uL Nucleated RBC % (auto) (0.0-0.2) /100WBC Smear Tech's Comments PT 12.9 (11.1-13.3) SEC INR 1.1 (0.9-1.1) APTT 29.6 (26.0-36.4) SEC Sodium (135-145) mmol/L Potassium (3.3-5.1) mmol/L Chloride (96-108) mmol/L Carbon Dioxide (22-29) mmol/L Anion Gap (12-20) BUN (9-16) mg/dL Creatinine (0.5-1.4) mg/dL Estim Creat Clear Calc Estimated GFR Random Glucose (60-115) mg/dL Lactic Acid 2.0 (0.5-2.0) mmol/L Calcium (8.4-10.2) mg/dL Total Bilirubin (0.0-1.0) mg/dL AST (5-31) U/L ALT (0-31) U/L Alkaline Phosphatase (39-117) U/L B-Natriuretic Peptide 75 (<100) pg/mL Total Protein (6.5-8.0) g/dL Albumin (3.5-5.0) g/dL COVID-19 (JENNIFER) (Negative) COVID-19 Clin Com Influenza Type A (GABRIELA) (Negative) Influenza Type B (GABRIELA) (Negative) Influenza A & B Note 12/31/22 Range/Units 21:20 WBC (4.8-10.8) X10*3/uL RBC (4.20-5.50) X10*6/uL Hgb (12.0-16.0) g/dl Hct (37.0-47.0) % MCV (80.0-98.0) fL MCH (27.0-33.0) pg MCHC (31.0-35.0) g/dl RDW (11.0-16.0) % Plt Count (160-400) X10*3/uL MPV (9.4-12.3) fL Immature Gran % (Auto) (0.0-0.4) % Neut % (Auto) (45-73) % Lymph % (Auto) (20-40) % [place] % (Auto) (2-11) % Eos % (Auto) (0-4) % Baso % (Auto) (0-2) % Lymph # (Auto) (1.2-4.9) X10*3/uL [place] # (Auto) (0.1-1.2) X10*3/uL Eos # (Auto) (0.0-0.4) X10*3/uL Baso # (Auto) (0.0-0.2) X10*3/uL Abs Immat Gran (auto) (0.00-0.03) X10*3/uL Absolute Neuts (auto) (2.0-8.3) x10*3/uL Absolute Nucleated RBC (0.0-0.012) X10*3/uL Nucleated RBC % (auto) (0.0-0.2) /100WBC Smear Tech's Comments PT (11.1-13.3) SEC INR (0.9-1.1) APTT (26.0-36.4) SEC Sodium (135-145) mmol/L Potassium (3.3-5.1) mmol/L Chloride (96-108) mmol/L Carbon Dioxide (22-29) mmol/L Anion Gap (12-20) BUN (9-16) mg/dL Creatinine (0.5-1.4) mg/dL Estim Creat Clear Calc Estimated GFR Random Glucose (60-115) mg/dL Lactic Acid (0.5-2.0) mmol/L Calcium (8.4-10.2) mg/dL Total Bilirubin (0.0-1.0) mg/dL AST (5-31) U/L ALT (0-31) U/L Alkaline Phosphatase (39-117) U/L B-Natriuretic Peptide (<100) pg/mL Total Protein (6.5-8.0) g/dL Albumin (3.5-5.0) g/dL COVID-19 (JENNIFER) (Negative) COVID-19 Clin Com Influenza Type A (GABRIELA) Negative (Negative) Influenza Type B (GABRIELA) Negative (Negative) Influenza A & B Note See Note negative for viral etiology. White blood cell count significantly elevated but that appears to be acute on chronic. Lactic acid was to. Independent Interpretation I performed an independent interpretation of an: Plain X-Ray ( no definite acute cardiopulmonary disease) Prescription Management I considered prescription management with: Antibiotic Chronic Conditions Patient?s care impacted by: Cancer Critical Care Time Critical Care Time Critical Care Time: Yes Total Critical Care Time: 40 Attestation: Due to a high probability of clinically significant, life threatening de terioration, the patient required my highest level of preparedness to intervene emergently and I personally spent this critical care time directly and personally managing the patient. This critical care time included obtaining a history; examining the patient; pulse oximetry; ordering and review of studies; arranging urgent treatment with development of a management plan; evaluation of patient's response to treatment; frequent reassessment; and, discussions with other providers. This critical care time was performed to assess and manage the high probability of imminent, life-threatening deterioration that could result in multi-organ failure. It was exclusive of separately billable procedures and treating other patients and teaching time. Discharge Plan Discharge Clinical Impression: COPD exacerbation, Sepsis, History of cancer Patient Disposition: Admitted As Inpatient Prescriptions: No Action topiramate 100 mg tablet 100 mg PO BID Qty: 180 3RF (DME) lancets [FreeStyle Lancets] 28 gauge misc See Rx Instructions .Route Qty: 100 3RF Rx Instructions: test blood sugar once a day ursodiol 500 mg tablet 500 mg PO BID Qty: 90 2RF lisinopril 2.5 mg tablet 2.5 mg PO BEDTIME Qty: 90 3RF cyanocobalamin (vitamin B-12) 1,000 mcg tablet 2,000 mcg PO BEDTIME Qty: 180 3RF gabapentin 100 mg capsule 200 mg PO BID Qty: 360 3RF Trelegy Ellipta 100-62.5-25 mcg blister with device 1 inh inhalation DAILY Qty: 180 3RF acetaminophen [Tylenol] 325 mg tablet 325 mg PO Q6H PRN (Reason: pain) Qty: 90 0RF cholecalciferol (vitamin D3) 25 mcg (1,000 unit) tablet 25 mcg PO BEDTIME Qty: 90 3RF albuterol sulfate 90 mcg/actuation HFA aerosol inhaler 2 puff PO Q4-6H PRN (Reason: for wheezing) Qty: 8.5 3RF (DME) FreeStyle Lite Strips Strip See Rx Instructions .Route Qty: 100 3RF Rx Instructions: test once a day loratadine [Claritin] 10 mg tablet 10 mg PO DAILY Qty: 90 0RF (DME) FreeStyle Karin 14 Day [place] Misc See Rx Instructions .Route Qty: 1 4RF Rx Instructions: As directed nitroglycerin 0.4 mg tablet, sublingual 1 tab sublingual Q5M PRN (Reason: Chest Pain) atorvastatin 80 mg tablet 80 mg PO BEDTIME aspirin 81 mg tablet,chewable 1 tab PO BEDTIME Senokot Extra Strength 17.2 mg Tablet 17.2 mg PO BID Qty: 60 5RF oxycodone 5 mg Tablet 5 mg PO Q8H PRN (Reason: Breakthrough Pain, Moderate) Qty: 40 0RF Rx Instructions: Partial Fill upon patient request. bupropion HCl 150 mg Tablet Extended Release 24 Hr 150 mg PO QAM metformin 750 mg Tablet Extended Release 24 Hr 750 mg PO DAILY prednisone 5 mg tablet 5 mg PO BID njtgvnzhun-ikxcjkfgryctn-yrua 50-325-40 mg tablet 1 tab PO Q6H PRN (Reason: Headache) Combivent Respimat 20-100 mcg/actuation mist 1 puff inhalation Q6H PRN (Reason: Shortness Of Breath) nystatin 100,000 unit/gram powder 1 appl topical TID PRN (Reason: Rash) zolpidem 10 mg tablet 10 mg PO BEDTIME ipratropium-albuterol 0.5 mg-3 mg(2.5 mg base)/3 mL solution for nebulization 3 ml inhalation QID PRN (Reason: Shortness Of Breath) isosorbide mononitrate 30 mg tablet extended release 24 hr 30 mg PO DAILY (DME) lancets [TRUEplus Lancets] 33 gauge misc See Rx Instructions .ROUTE DAILY Qty: 100 Rx Instructions: As directed (DME) Oxygen Home Use Kit See Rx Instructions .Route Rx Instructions: As directed multivitamin [Daily Multi-Vitamin] Tablet 1 tab PO BEDTIME Mucinex 1,200 mg tablet extended release 12hr 1,200 mg PO BID 30 Days Qty: 60 4RF
[2022-12-31] MEDS: Acetaminophen 325 MG TABLET 975 MG PO (21:00)
[2022-12-31] MEDS: Albuterol Sulfate 7.5 MG, Albuterol/Iprat 2.5/0.5MG 3 ML 3 ML INHALE (21:06)
[2022-12-31 21:07] VITALS: PULSE 119; RESP 18; O2SAT 92
[2022-12-31 21:34] LABS: Basophils Absolute Auto 0.1 X10*3/uL (0.0-0.2); Basophils Percent Auto 0.5 % (0-2); Eosinophils Percent Auto 0.1 % (0-4); Hematocrit 36.6 % (37.0-47.0); Hemoglobin 10.9 g/dl (12.0-16.0); Imm Gran Abs Auto 0.11 X10*3/uL (0.00-0.03); Imm Gran Pct Auto 0.5 % (0.0-0.4); Lymphocytes Absolute Auto 1.7 X10*3/uL (1.2-4.9); Lymphocytes Percent Auto 7.8 % (20-40); Mean Corpuscular HGB Conc 29.8 g/dl (31.0-35.0); Mean Corpuscular Hemoglobin 22.8 pg (27.0-33.0); Mean Corpuscular Volume 76.4 fL (80.0-98.0); Mean Platelet Volume 10.6 fL (9.4-12.3); Monocytes Absolute Auto 1.9 X10*3/uL (0.1-1.2); Monocytes Percent Auto 8.8 % (2-11); Neutrophils Percent Auto 82.3 % (45-73); Platelet Count 432 X10*3/uL (160-400); Red Blood Count 4.79 X10*6/uL (4.20-5.50); Red Cell Distribution Width 15.9 % (11.0-16.0); SCAN SMEAR FLAG 1; White Blood Count 21.9 X10*3/uL (4.8-10.8)
[2022-12-31] MEDS: Azithromycin 500 MG in 0.9 % Sodium Chloride 250 ML 125 MG IV (21:35)
[2022-12-31] MEDS: cefTRIAXone sodium 1 GM in 0.9 % Sodium Chloride 50 ML IV (21:35)
[2022-12-31 21:38] LABS: INTERNATIONAL NORM RATIO 1.1 (0.9-1.1); Prothrombin Time 12.9 SEC (11.1-13.3)
[2022-12-31] MEDS: methylPREDNISolone Sod Succ 125 MG/2 ML VIAL IVPUSH (21:39)
[2022-12-31 21:41] LABS: Partial Thromboplastin Time 29.6 SEC (26.0-36.4)
[2022-12-31 21:43] LABS: COVID-19 Test Negative (Negative); IDNOW Serial# 08D9AD1C
[2022-12-31 21:45] LABS: IDNOW Serial# BCCEAD1C; Influenza A Negative (Negative); Influenza B2 Negative (Negative)
[2022-12-31 21:51] LABS: Alanine Aminotransferase 10 U/L (0-31); Alkaline Phosphatase 120 U/L (39-117); Anion Gap 14 (12-20); Aspartate Amino Transferase 22 U/L (5-31); Bilirubin Total 0.5 mg/dL (0.0-1.0); Blood Urea Nitrogen 13 mg/dL (9-16); Carbon Dioxide 25 mmol/L (22-29); Chloride 100 mmol/L (96-108); Creatinine Clr Calc Pharmacy 46.5; Estimated Glomerular Filt Rate > 60; Glucose Random 171 mg/dL (60-115); Potassium 4.9 mmol/L (3.3-5.1); Sodium 134 mmol/L (135-145); Total Protein 8.3 g/dL (6.5-8.0)
[2022-12-31 21:55] LABS: B Type Natriuretic Peptide 75 pg/mL (<100)
[2022-12-31 21:58] LABS: MANUAL DIFF FLAG NO
[2022-12-31 22:03] VITALS: BP 108/43; PULSE 121; RESP 18; TEMP 37.3
--- NOTE | 2022-12-31 22:06 | PC.NURSE ---
This RN assumed care upon patient arrival. RN recognized fever that was not otherwise reported by EMS, informed MD (Dr. Joel) and Sepsis Protocol was initiated. RN placed 20g IV in patient's right wrist. Labs drawn appropriately as reflected. Patient VS updated appropriately per sepsis protocol. Patient transferred into hospital bed and ABX started. Patient's DTR in law Lizabeth Power spoke with this RN with patient's permission. Patient hx of hysterectomy but starting chemotherapy on Thursday morning with Dr. 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
--- NOTE | 2022-12-31 22:12 | PHA.MEDREC ---
Addendum entered by rByan Harrison 01/01/23 09:39: Called [facility] to confirm meds. Original Note: Pharmacy Consult ? Medication Reconciliation Pharmacy has completed the medication reconciliation. Patient does not know names of medications and forget list at home. Did med rec by claim history for now, will have morning pharmacist call [facility] in the morning to confirm. Amlodipine was stopped by PCP. Colleen Boo, CherylD
[2022-12-31] MEDS: 0.9 % Sodium Chloride 1,000 ML 999 ML IV (22:50)
[2022-12-31 23:01] VITALS: BP 113/48; PULSE 100; RESP 34; TEMP 37.2; O2SAT 92
[2022-12-31 23:57] VITALS: BP 97/44; PULSE 106; RESP 18; TEMP 36.9; O2SAT 93
[2023-01-01] VITALS (7 sets, daily range): BP systolic 108–116; BP diastolic 38–61; PULSE 75–91; RESP 16–23; TEMP 36.3–36.7; O2SAT 94–99; BMI 25.5
--- NOTE | 2023-01-01 00:47 | P.HPHOSP_ITS ---
History of Present Illness Date of Service: 01/01/23 Chief Complaint: shortness of breath 72-year-old female with past medical history of COPD, CAD, depression, diabetes, hypertension, migraine headaches, active smoker, comes into the hospital with complaints of sudden onset shortness of breath on day of present ation. Minimal cough, no increased sputum production, no lower extremity edema, no fever or chills. No abdominal pain nausea or vomiting, no diarrhea constipation, no urinary symptoms, no orthopnea or PND. On arrival to the ED patient was noted to be febrile with a fever of 101.7, heart rate of 127, blood pressure 144/57 satting 94% on room air, Labs are significant for WBC count of 21.9, hemoglobin of 10.9, hematocrit 36.6 sodium 134, UA positive for leukocyte Estrace WBC, bacteria, BNP negative chest x-ray shows emphysematous changes, nodule involving the right lower lobe, blunting of the right costophrenic recess scarring versus pleural effusion patient started on antibiotics will be admitted for further management Review of Systems Review of Systems: Yes all other systems are reviewed and are negative [facility] Medical History Anxiety CAD (coronary artery disease) Cervical stenosis of spine COPD (chronic obstructive pulmonary disease) Depression Diabetic polyneuropathy associated with type 2 diabetes mellitus DM type 2 (diabetes mellitus, type 2) Elevated BUN History of smoking at least 1 pack per day for at least 30 years HTN (hypertension) Hyperlipidemia Left leg swelling Low vitamin D level Mass of peritoneum Migraine headache Neck pain Nonalcoholic steatohepatitis (CHRISTINE) Pulmonary nodule 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 Smoker Vertigo Vitamin B 12 deficiency Vitamin B12 deficiency Family History Mother CVD (cardiovascular disease) CVA (cerebral vascular accident) Father CVD (cardiovascular disease) Sister Breast cancer Family/Other Breast cancer Surgical History Fusion of spine of cervical region History of carpal tunnel release History of heart artery stent History of hysterectomy Social History Household Members: Other Household Members Other:: roommate Housing: House Do you presently have visiting nurse or other home services: No Alcohol intake: never Patient Tobacco Use Status: Current everyday Tobacco user Tobacco use type: Cigarette Cigarette Packs Per Day: 0.5 Cigarettes Per Day: 6 Years Smoked: 62 yrs e-Cigarette/Vaping Use: Never Used Second Hand Smoke Exposure: No Advance Directives: Yes Advance Directives on File: Yes Advance Directives Date on File: 11/14/21 service: No Current occupational status: retired Current occupation: Right Handed Cognitive needs: No Hearing needs: No Vision needs: Yes Meds Allergies Allergy/AdvReac Type Severity Reaction Status Date / Time amoxicillin [AMOXICILLIN] Allergy Mild DIARRHEA Verified 12/25/22 10:32 Darvocet A500 Allergy Unknown upset Verified 12/25/22 10:32 stomach melatonin Allergy Unknown Nausea and Verified 12/25/22 10:32 Vomiting oxycodone [From PERCOCET] Allergy Unknown NAUSEA,VOMI Verified 12/25/22 10:32 TING propoxyphene Allergy Unknown Stomach Verified 12/25/22 10:32 Upset influenza virus vaccine, AdvReac Intermediate NAUSEA,DIAR Verified 12/25/22 10:32 specific WU [FLU VACCINE] lactose [LACTOSE] AdvReac Intermediate GI UPSET Verified 12/25/22 10:32 metronidazole [From FLAGYL] AdvReac Intermediate NAUSEA & Verified 12/25/22 10:32 VOMITING Sulfa (Sulfonamide AdvReac Intermediate EYE DROPS Verified 12/25/22 10:32 Antibiotics) (ONLY)-IRITIS Home Medications Medication Instructions Recorded Confirmed Last Taken Type multivitamin (Daily Multi-Vitamin 1 tab PO BEDTIME 12/25/20 12/31/22 09/09/21 History tablet) aspirin 81 mg chewable tablet 1 tab PO BEDTIME 09/11/21 12/31/22 11/13/21 History atorvastatin 80 mg tablet 80 mg PO BEDTIME 09/11/21 12/25/22 11/13/21 History nitroglycerin 0.4 mg sublingual 1 tab sublingual Q5M PRN Chest Pain 09/11/21 12/31/22 Unknown History tablet isosorbide mononitrate 30 mg 30 mg PO DAILY 09/25/21 12/25/22 11/13/21 History tablet,extended release 24 hr lancets 33 gauge (TRUEplus Lancets) #100 ea 11/20/21 12/25/22 Unknown History bupropion HCl 150 mg 24 hr tablet, 150 mg PO QAM 09/10/22 12/31/22 Unknown History extended release metformin 750 mg tablet,extended 750 mg PO DAILY 09/10/22 12/31/22 Unknown History release 24 hr Oxygen Home Use 09/23/22 12/25/22 Unknown History loclgndwpd-[id number]-[id number] 1 tab PO Q6H PRN Headache 12/31/22 12/31/22 Unknown History 50 mg-325 mg-40 mg tablet ipratropium 0.5 mg-albuterol 3 mg 3 ml inhalation QID PRN Shortness 12/31/22 12/31/22 Unknown History (2.5 mg base)/3 mL nebulization Of Breath soln ipratropium 20 mcg-albuterol 100 1 puff inhalation Q6H PRN 12/31/22 12/31/22 Unknown History mcg/actuation mist for inhalation Shortness Of Breath (Combivent Respimat) nystatin 100,000 unit/gram topical 1 appl topical TID PRN Rash 12/31/22 12/31/22 Unknown History powder prednisone 5 mg tablet 5 mg PO BID 12/31/22 12/31/22 Unknown History zolpidem 10 mg tablet 10 mg PO BEDTIME 12/31/22 12/31/22 Unknown History Physical Exam Vital Signs and Narrative: Vital Signs: Last Vital Signs Temp 98.5 F 12/31/22 23:57 Pulse 106 H 12/31/22 23:57 Resp 18 12/31/22 23:57 BP 97/44 L 12/31/22 23:57 Pulse Ox 93 12/31/22 23:57 O2 Del Method Room Air 12/31/22 23:57 BMI result Body Mass Index 25.5 Const: General: cooperative and no acute distress O rientation/consciousness: patient oriented x3 Eyes: General: appearance normal, both eyes and all related structures Resp: Other: wheezing bilaterally Effort & Inspection: normal respiratory effort Cardio: Rate: regular rate Rhythm: regular rhythm GI: Palpation (GI): Soft to palpation Auscultation: normal bowel sounds Skin: General skin exam: no rashes or lesions noted Neuro: General: patient oriented x3 Cognition (Neuro): normal cognition Extrem: General: Yes normal to inspection and Yes no pedal edema Results Labs 12/31/22 21:17 12/31/22 21:17 Labs: Laboratory Results - last 24 hr 12/31/22 12/31/22 12/31/22 21:17 21:17 21:17 MCV 76.4 L MCH 22.8 L MCHC 29.8 L RDW 15.9 Plt Count 432 H MPV 10.6 Immature Gran % (Auto) 0.5 H Neut % (Auto) 82.3 H Lymph % (Auto) 7.8 L [place] % (Auto) 8.8 Eos % (Auto) 0.1 Baso % (Auto) 0.5 Lymph # (Auto) 1.7 [place] # (Auto) 1.9 H Eos # (Auto) 0.0 Baso # (Auto) 0.1 Abs Immat Gran (auto) 0.11 H Absolute Neuts (auto) 18.0 H Absolute Nucleated RBC 0.000 Nucleated RBC % (auto) 0.0 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 Anion Gap 14 Estim Creat Clear Calc 46.5 Estimated GFR > 60 Random Glucose 171 H Lactic Acid Calcium 10.0 Total Bilirubin 0.5 AST 22 ALT 10 Alkaline Phosphatase 120 H B-Natriuretic Peptide Total Protein 8.3 H Albumin 4.0 COVID-19 (JENNIFER) Negative COVID-19 Clin Com See Note Influenza Type A (GABRIELA) Influenza Type B (GABRIELA) Influenza A & B Note 12/31/22 12/31/22 12/31/22 21:17 21:17 21:17 MCV MCH MCHC RDW Plt Count MPV Immature Gran % (Auto) Neut % (Auto) Lymph % (Auto) [place] % (Auto) Eos % (Auto) Baso % (Auto) Lymph # (Auto) [place] # (Auto) Eos # (Auto) Baso # (Auto) Abs Immat Gran (auto) Absolute Neuts (auto) Absolute Nucleated RBC Nucleated RBC % (auto) Smear Tech's Comments PT 12.9 INR 1.1 APTT 29.6 Anion Gap Estim Creat Clear Calc Estimated GFR Random Glucose Lactic Acid 2.0 Calcium Total Bilirubin AST ALT Alkaline Phosphatase B-Natriuretic Peptide 75 Total Protein Albumin COVID-19 (JENNIFER) COVID-19 Clin Com Influenza Type A (GABRIELA) Influenza Type B (GABRIELA) Influenza A & B Note 12/31/22 21:20 MCV MCH MCHC RDW Plt Count MPV Immature Gran % (Auto) Neut % (Auto) Lymph % (Auto) [place] % (Auto) Eos % (Auto) Baso % (Auto) Lymph # (Auto) [place] # (Auto) Eos # (Auto) Baso # (Auto) Abs Immat Gran (auto) Absolute Neuts (auto) Absolute Nucleated RBC Nucleated RBC % (auto) Smear Tech's Comments PT INR APTT Anion Gap Estim Creat Clear Calc Estimated GFR Random Glucose Lactic Acid Calcium Total Bilirubin AST ALT Alkaline Phosphatase B-Natriuretic Peptide Total Protein Albumin COVID-19 (JENNIFER) COVID-19 Clin Com Influenza Type A (GABRIELA) Negative Influenza Type B (GABRIELA) Negative Influenza A & B Note See Note Imaging Radiologist's Impressions: Impressions Chest X-Ray 12/31/22 20:57 IMPRESSION: 1. Emphysematous changes. 2. Redemonstration of nodule involving the right lower lobe as seen on prior cross-sectional imaging. 3. Stable elevation the left hemidiaphragm. 4. Trace blunting of the right costophrenic recess which may represent scarring versus trace pleural effusion. 5. Biapical pleural parenchymal scarring. 6. Degenerative arthropathy of the bilateral glenohumeral joints. Assessment and Plan (1) Sepsis: Status: Acute (2) COPD exacerbation: Status: Acute (3) UTI (urinary tract infection): Status: Acute (4) Bladder cancer: Status: Acute Plan 72-year-old female past medical history of bladder cancer, COPD, diabetes, hypertension, comes into the hospital with complaints of shortness of breath # sepsis - has fever, leukocytosis, tachycardia - source likely pneumonia versus UTI - will treat with IV antibiotics - follow cultures # dyspnea - no evidence of hypoxia - likely secondary to COPD exacerbation versus pneumonia - BNP negative, no evidence of CHF exacerbation - given history of COPD, likely COPD exacerbation although has minimal cough and no increased sputum production - will treat with DuoNeb, Solu-Medrol, will add IV antibiotics - will obtain chest CT for further evaluation # acute UTI - positive UA - Given sepsis will treat with IV antibiotics - follow cultures # diabetes - hold oral antihyperglycemics - will treat with low-dose sliding scale insulin - diabetic diet # antihypertensive - BP soft - hold antihypertensives # migraine headaches - continue topiramate # History of bladder cancer - continue outpatient follow-up DVT prophylaxis: heparin subQ Given patient's sepsis needing IV antibiotics patient will require minimum 2 nights inpatient hospital stay for further management and monitoring Time Spent With Patient Time: Total time managing care of this patient today ____ minutes. Quality Stroke Does the patient have a stroke diagnosis?: No VTE Prior VTE?: No VTE Risk Level:: Medical - moderate - high VTE Device Contraindication: Treatment Not Indicated VTE Drug Contraindication: N/A - Med Ordered
[2023-01-01 06:22] LABS: Appearance Urine Clear; Color Urine Yellow; Glucose Urine UA Negative (Negative); Leukocyte Esterase Urine Small (1+) (Negative); Nitrite Urine Negative (Negative); UMIC TRIGGER UA YES; Urine Blood Moderate (2+) (Negative); Urine Ketones Negative (Negative); Urine Protein 30 (1+) mg/dL (Neg-Trace)
[2023-01-01 06:23] LABS: Bacteria Urine 1+ (None Seen); Hyaline Casts Urine 0-2 /LPF (0-2)
[2023-01-01 06:28] LABS: Basophils Percent Auto 0.1 % (0-2); Eosinophils Percent Auto 0.1 % (0-4); Hematocrit 35.4 % (37.0-47.0); Hemoglobin 10.3 g/dl (12.0-16.0); Imm Gran Abs Auto 0.12 X10*3/uL (0.00-0.03); Imm Gran Pct Auto 0.7 % (0.0-0.4); Lymphocytes Percent Auto 5.5 % (20-40); MANUAL DIFF FLAG SCAN; Mean Corpuscular HGB Conc 29.1 g/dl (31.0-35.0); Mean Corpuscular Hemoglobin 22.8 pg (27.0-33.0); Mean Corpuscular Volume 78.5 fL (80.0-98.0); Mean Platelet Volume 10.5 fL (9.4-12.3); Monocytes Absolute Auto 0.3 X10*3/uL (0.1-1.2); Monocytes Percent Auto 1.4 % (2-11); Neutrophils Absolute Auto 16.7 x10*3/uL (2.0-8.3); Neutrophils Percent Auto 92.2 % (45-73); Platelet Count 361 X10*3/uL (160-400); Red Blood Count 4.51 X10*6/uL (4.20-5.50); Red Cell Distribution Width 15.9 % (11.0-16.0); SCAN SMEAR FLAG 1; White Blood Count 18.1 X10*3/uL (4.8-10.8)
[2023-01-01 06:40] LABS: Anion Gap 17 (12-20); Blood Urea Nitrogen 17 mg/dL (9-16); Calcium 9.4 mg/dL (8.4-10.2); Carbon Dioxide 20 mmol/L (22-29); Chloride 104 mmol/L (96-108); Estimated Glomerular Filt Rate 48; Glucose Random 260 mg/dL (60-115); Potassium 4.3 mmol/L (3.3-5.1); Sodium 137 mmol/L (135-145)
[2023-01-01 06:47] LABS: SLIDE REVIEW VERIFIED
--- NOTE | 2023-01-01 07:07 | PC.NURSE ---
This RN spoke with patient at length and provided support in regards to anxiety with chemotherapy, patient given education materials, currently awaiting hospital bed
[2023-01-01] MEDS: cefTRIAXone sodium 1 GM in 0.9 % Sodium Chloride 50 ML IV (07:46)
[2023-01-01] MEDS: 0.9 % Sodium Chloride Flush 3 ML SYRINGE IVFLUSH ×3 (07:51→20:59)
[2023-01-01] MEDS: Albuterol/Iprat 2.5/0.5MG 3 ML AMPUL.NEB INHALE ×3 (08:27→19:42)
--- NOTE | 2023-01-01 09:41 | MHC.CM.PN ---
CM ATTEMPTED TO MEET WITH PT WHO WAS WASHING UP AT THE TIME CM WILL RETURN
[2023-01-01] MEDS: Loratadine 10 MG TABLET PO (11:13)
[2023-01-01] MEDS: guaiFENesin LA 600 MG TAB.ER.12H 1200 MG PO ×2 (11:13→20:54)
[2023-01-01] MEDS: buPROPion HCl XL 150 MG TAB.ER.24H PO (11:13)
[2023-01-01] MEDS: Topiramate 100 MG TABLET PO ×2 (11:13→20:54)
[2023-01-01] MEDS: Gabapentin 100 MG CAPSULE 200 MG PO ×2 (11:13→20:55)
[2023-01-01] MEDS: Sennosides 8.6 MG TABLET 17.2 MG PO ×2 (11:13→20:54)
[2023-01-01 11:26] LABS: Glucose, Whole Blood 262 mg/dL (60-115)
[2023-01-01] MEDS: Heparin Sodium,Porcine 5,000 UNIT/ML VIAL 5000 UNIT SUBCUT ×2 (12:40→23:43)
[2023-01-01] MEDS: methylPREDNISolone Sod Succ 40 MG/ML VIAL IVPUSH ×2 (12:40→23:44)
[2023-01-01] MEDS: Insulin Lispro 100 UNIT/ML 3 ML VIAL SUBCUT ×3 (12:40→20:56)
--- NOTE | 2023-01-01 12:53 | HO.PM.IMPN ---
Subjective Subjective Date of Service: 01/01/23 Interval History: sepsis/sob Review of Systems sob seems similar to yesterday has dry cough no fevers Physical Exam Vital Signs: Vital Signs: Last Vital Signs Temp 97.8 F 01/01/23 07:40 Pulse 91 01/01/23 11:51 Resp 18 01/01/23 11:51 BP 108/50 L 01/01/23 07:40 Pulse Ox 98 01/01/23 07:40 O2 Del Method Nasal Cannula 01/01/23 07:40 O2 Flow Rate 3 01/01/23 07:40 BMI result Body Mass Index 25.5 Appearance: Alert.? Oriented X3.?sob. cvs: rrr, [id number] , no murmur res:air entry diminshed ,has b/l exp wheezing abd: no rebound or guarding ,nt, bs present. ext pulses present , no cyanosis . neuro: axo3 , nonfocal. Objective Data Active Medications Acetaminophen (Acetaminophen 325 Mg Tablet) 650 mg PO Q6H PRN PRN Reason: Pain, Mild (Pain Scale 1-3) Albuterol/Ipratropium (Albuterol/Iprat 2.5/0.5mg 3 Ml Ampul.Neb) 3 ml INHALE RQ4H PRN PRN Reason: Shortness of Breath/Wheezing Albuterol/Ipratropium (Albuterol/Iprat 2.5/0.5mg 3 Ml Ampul.Neb) 3 ml INHALE RQ4H WHILE AWAKE [facility] Last Admin: 01/01/23 11:50 Dose: 3 ml Documented By: ABIDA Aspirin (Aspirin 81 Mg Tab.Chew) 81 mg PO BEDTIME [facility] Bupropion HCl (Bupropion Hcl Xl 150 Mg Tab.Er.24h) 150 mg PO DAILY [facility] Last Admin: 01/01/23 11:13 Dose: 150 mg Documented By: BRUCE Dextrose (Dextrose 50 % 25 Gm/50 Ml Syringe) 25 gm IVPUSH Q15M PRN; Protocol PRN Reason: per Hypoglycemia Standing Ord. Docusate Sodium (Docusate Sodium 100 Mg Capsule) 100 mg PO DAILY PRN PRN Reason: Constipation Gabapentin (Gabapentin 100 Mg Capsule) 200 mg PO BID [facility] Last Admin: 01/01/23 11:13 Dose: 200 mg Documented By: BRUCE Glucose (Glucose Gel 15 Gm Gel..Gram.) 15 gm PO Q15M PRN; Protocol PRN Reason: per Hypoglycemia Standing Ord. Guaifenesin (Guaifenesin La 600 Mg Tab.Er.12h) 1,200 mg PO BID [facility] Last Admin: 01/01/23 11:13 Dose: 1,200 mg Documented By: BRUCE Heparin Sodium (Porcine) (Heparin Sodium,Porcine 5,000 Unit/Ml Vial) 5,000 unit SUBCUT Q12H [facility] Last Admin: 01/01/23 12:40 Dose: 5,000 unit Documented By: BRUCE Azithromycin 500 mg/ Sodium (Chloride) 250 mls @ 125 mls/hr IV Q24H [facility] Last Admin: 01/01/23 07:10 Dose: Not Given Documented By: MARY-RASHMI Non-Admin Reason: Physician Approved Ceftriaxone Sodium 1 gm/ (Sodium Chloride) 50 mls @ 100 mls/hr IV Q24H [facility] Last Infusion: 01/01/23 08:53 Dose: 0 mls/hr Documented By: BRUCE Insulin Human Lispro (Insulin Lispro 100 Unit/Ml 3 Ml Vial) 0 unit SUBCUT QIDACHS [facility]; Protocol Last Admin: 01/01/23 12:40 Dose: 6 unit Documented By: BRUCE Loratadine (Loratadine 10 Mg Tablet) 10 mg PO DAILY [facility] Last Admin: 01/01/23 11:13 Dose: 10 mg Documented By: BRUCE Methylprednisolone Sodium Succinate (Methylprednisolone Sod Succ 40 Mg/Ml Vial) 40 mg IVPUSH Q12H [facility] Last Admin: 01/01/23 12:40 Dose: 40 mg Documented By: BRUCE Multivitamins/Vitamin C (Multivitamin Tablet) 1 tab PO BEDTIME [facility] Nitroglycerin (Nitroglycerin 0.4 Mg Tab.Subl) 0.4 mg SUBLINGUAL Q5M PRN PRN Reason: Chest Pain Nystatin (Nystatin Powder 15 Gm Bottle) 1 appl TOPICAL TID PRN; Protocol PRN Reason: Rash Ondansetron HCl (Ondansetron Hcl 4 Mg/2 Ml Vial) 4 mg IVPUSH Q8H PRN PRN Reason: Nausea and Vomiting Oxycodone HCl (Oxycodone Hcl Immed Release 5 Mg Tablet) 5 mg PO Q8H PRN PRN Reason: Breakthrough Pain, Moderate Senna (Sennosides 8.6 Mg Tablet) 17.2 mg PO BID [facility] Last Admin: 01/01/23 11:13 Dose: 17.2 mg Documented By: BRUCE Sodium Chloride (0.9 % Sodium Chloride Flush 3 Ml Syringe) 3 ml IVFLUSH QSHIFT [facility] Last Admin: 01/01/23 07:51 Dose: 3 ml Documented By: JOESPH Topiramate (Topiramate 100 Mg Tablet) 100 mg PO BID [facility] Last Admin: 01/01/23 11:13 Dose: 100 mg Documented By: BRUCE Vitamin D (Cholecalciferol (Vitamin D3) 25 Mcg Tablet) 25 mcg PO BEDTIME [facility] Zolpidem Tartrate (Zolpidem Tartrate 5 Mg Tablet) 5 mg PO BEDTIME [facility] Labs 01/01/23 06:21 01/01/23 06:21 Labs: Laboratory Results - last 24 hr 12/31/22 12/31/22 12/31/22 21:17 21:17 21:17 MCV 76.4 L MCH 22.8 L MCHC 29.8 L RDW 15.9 Plt Count 432 H MPV 10.6 Immature Gran % (Auto) 0.5 H Neut % (Auto) 82.3 H Lymph % (Auto) 7.8 L [place] % (Auto) 8.8 Eos % (Auto) 0.1 Baso % (Auto) 0.5 Lymph # (Auto) 1.7 [place] # (Auto) 1.9 H Eos # (Auto) 0.0 Baso # (Auto) 0.1 Abs Immat Gran (auto) 0.11 H Absolute Neuts (auto) 18.0 H Absolute Nucleated RBC 0.000 Nucleated RBC % (auto) 0.0 Smear Tech's Comments 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 PT INR APTT Anion Gap 14 Estim Creat Clear Calc 46.5 Estimated GFR > 60 POC Glucose Random Glucose 171 H Lactic Acid Calcium 10.0 Total Bilirubin 0.5 AST 22 ALT 10 Alkaline Phosphatase 120 H B-Natriuretic Peptide Total Protein 8.3 H Albumin 4.0 Urine Color Urine Appearance Urine pH Ur Specific [place] Urine Protein Urine Glucose (UA) Urine Ketones Urine Blood Urine Nitrite Ur Leukocyte Esterase Urine RBC Urine WBC Ur Squamous Epith Cells Urine Bacteria Hyaline Casts COVID-19 (JENNIFER) Negative COVID-19 Clin Com See Note Influenza Type A (GABRIELA) Influenza Type B (GABRIELA) Influenza A & B Note 12/31/22 12/31/22 12/31/22 21:17 21:17 21:17 MCV MCH MCHC RDW Plt Count MPV Immature Gran % (Auto) Neut % (Auto) Lymph % (Auto) [place] % (Auto) Eos % (Auto) Baso % (Auto) Lymph # (Auto) [place] # (Auto) Eos # (Auto) Baso # (Auto) Abs Immat Gran (auto) Absolute Neuts (auto) Absolute Nucleated RBC Nucleated RBC % (auto) Smear Tech's Comments PT 12.9 INR 1.1 APTT 29.6 Anion Gap Estim Creat Clear Calc Estimated GFR POC Glucose Random Glucose Lactic Acid 2.0 Calcium Total Bilirubin AST ALT Alkaline Phosphatase B-Natriuretic Peptide 75 Total Protein Albumin Urine Color Urine Appearance Urine pH Ur Specific [place] Urine Protein Urine Glucose (UA) Urine Ketones Urine Blood Urine Nitrite Ur Leukocyte Esterase Urine RBC Urine WBC Ur Squamous Epith Cells Urine Bacteria Hyaline Casts COVID-19 (JENNIFER) COVID-19 Clin Com Influenza Type A (GABRIELA) Influenza Type B (GABRIELA) Influenza A & B Note 12/31/22 01/01/23 01/01/23 21:20 02:37 06:21 MCV 78.5 L MCH 22.8 L MCHC 29.1 L RDW 15.9 Plt Count 361 MPV 10.5 Immature Gran % (Auto) 0.7 H Neut % (Auto) 92.2 H Lymph % (Auto) 5.5 L [place] % (Auto) 1.4 L Eos % (Auto) 0.1 Baso % (Auto) 0.1 Lymph # (Auto) 1.0 L [place] # (Auto) 0.3 Eos # (Auto) 0.0 Baso # (Auto) 0.0 Abs Immat Gran (auto) 0.12 H Absolute Neuts (auto) 16.7 H Absolute Nucleated RBC 0.000 Nucleated RBC % (auto) 0.0 Smear Tech's Comments VERIFIED PT INR APTT Anion Gap Estim Creat Clear Calc Estimated GFR POC Glucose Random Glucose Lactic Acid Calcium Total Bilirubin AST ALT Alkaline Phosphatase B-Natriuretic Peptide Total Protein Albumin Urine Color Yellow Urine Appearance Clear Urine pH 6.0 Ur Specific [place] 1.010 Urine Protein 30 (1+) H Urine Glucose (UA) Negative Urine Ketones Negative Urine Blood Moderate (2+) H Urine Nitrite Negative Ur Leukocyte Esterase Small (1+) H Urine RBC 3-5 H Urine WBC 6-10 H Ur Squamous Epith Cells 3-5 Urine Bacteria 1+ Hyaline Casts 0-2 COVID-19 (JENNIFER) COVID-19 Clin Com Influenza Type A (GABRIELA) Negative Influenza Type B (GABRIELA) Negative Influenza A & B Note See Note 01/01/23 01/01/23 06:21 11:13 MCV MCH MCHC RDW Plt Count MPV Immature Gran % (Auto) Neut % (Auto) Lymph % (Auto) [place] % (Auto) Eos % (Auto) Baso % (Auto) Lymph # (Auto) [place] # (Auto) Eos # (Auto) Baso # (Auto) Abs Immat Gran (auto) Absolute Neuts (auto) Absolute Nucleated RBC Nucleated RBC % (auto) Smear Tech's Comments PT INR APTT Anion Gap 17 Estim Creat Clear Calc 37.0 Estimated GFR 48 POC Glucose 262 H Random Glucose 260 H Lactic Acid Calcium 9.4 Total Bilirubin AST ALT Alkaline Phosphatase B-Natriuretic Peptide Total Protein Albumin Urine Color Urine Appearance Urine pH Ur Specific [place] Urine Protein Urine Glucose (UA) Urine Ketones Urine Blood Urine Nitrite Ur Leukocyte Esterase Urine RBC Urine WBC Ur Squamous Epith Cells Urine Bacteria Hyaline Casts COVID-19 (JENNIFER) COVID-19 Clin Com Influenza Type A (GABRIELA) Influenza Type B (GABRIELA) Influenza A & B Note Assessment and Plan (1) COPD exacerbation: Status: Acute (2) Sepsis: Status: Acute Plan 72-year-old female past medical history of bladder cancer, COPD, diabetes, hypertension, comes into the hospital with complaints of shortness of breath ? sepsis fever resolved , leukocytosis and tachycardia improving -? source likely pneumonia versus UTI -? will treat with IV antibiotics -? follow cultures COPD exacerbation versus pneumonia -? BNP negative,? no evidence of CHF exacerbation -? given history of COPD,? likely COPD exacerbation although has minimal cough and no increased sputum production -? will treat with DuoNeb, Solu-Medrol, will add IV antibiotics -? will obtain chest CT for further evaluation ? acute UTI-? positive UA -? Given sepsis will treat with IV antibiotics -? follow cultures diabetes-? hold oral antihyperglycemics -? will treat with? low-dose sliding scale insulin -? diabetic diet ? antihypertensive -? BP soft -? hold antihypertensives migraine headaches -? continue? topiramate History of bladder cancer -? continue outpatient follow-up ?DVT prophylaxis: heparin subQ ongoing inpatient need -sepsis(pna vs uti) needing IV antibiotics ,copd excerebation-need iv steriods and nebs,blood cultures pending Time Spent With Patient Time: Total time managing care of this patient today ____ minutes. Quality Stroke Does the patient have a stroke diagnosis?: No VTE Prior VTE?: No VTE Risk Level:: Medical - moderate - high VTE Device Contraindication: Treatment Not Indicated VTE Drug Contraindication: N/A - Med Ordered
[2023-01-01 13:13] LABS: Alanine Aminotransferase 10 U/L (0-31); Albumin Level 3.5 g/dL (3.5-5.0); Alkaline Phosphatase 98 U/L (39-117); Aspartate Amino Transferase 19 U/L (5-31); Bilirubin Direct 0.1 mg/dL (0.0-0.5); Bilirubin Total 0.3 mg/dL (0.0-1.0); Total Protein 7.4 g/dL (6.5-8.0)
--- NOTE | 2023-01-01 15:19 | MHC.CM.PN ---
PT REPORTS SHE LIVES WITH A HOUSE MATE SHE SAYS SHE IS INDEPENDENT WITH SELF CARE, BUT HAS DIFFICULTY WITH SOME HOUSEWORK SHE IS AGREEABLE TO A [facility] REFERRAL BEING PLACED TASK SENT SHE REPORTS USING ONLY DIABETIC SUPPLIES FOR DME HCP ON FILE PCP: JORDAN CHAMPION IMM DELIVERED DCP: HOME WITH REFERRAL FOR [facility] PT ARRANGED TRANSPORT VS C SHUTTLE
[2023-01-01 16:27] LABS: Glucose, Whole Blood 185 mg/dL (60-115)
[2023-01-01 17:15] LABS: Appearance Urine Clear; Color Urine Yellow; Glucose Urine UA Negative (Negative); Leukocyte Esterase Urine Small (1+) (Negative); Nitrite Urine Negative (Negative); UMIC TRIGGER UACC YES; Urine Blood Trace (Negative); Urine Ketones Negative (Negative); Urine Protein 30 (1+) mg/dL (Neg-Trace)
--- NOTE | 2023-01-01 19:12 | PC.NURSE ---
Per dr Rivas no equipment monitor phototypesetting , order was for ED only
[2023-01-01 20:15] LABS: Bacteria Urine None Seen (None Seen); Hyaline Casts Urine 0-2 /LPF (0-2); Squamous Epithelial Cell Urine 0-2 /HPF (0-2); UACC Culture Trigger YES
[2023-01-01 20:29] LABS: Glucose, Whole Blood 241 mg/dL (60-115)
[2023-01-01] MEDS: Cholecalciferol (Vitamin D3) 25 MCG TABLET PO (20:54)
[2023-01-01] MEDS: Multivitamin TABLET 1 TAB PO (20:54)
[2023-01-01] MEDS: Aspirin 81 MG TAB.CHEW PO (20:54)
[2023-01-01] MEDS: Zolpidem Tartrate 5 MG TABLET PO (20:55)
[2023-01-01] MEDS: Azithromycin 500 MG in 0.9 % Sodium Chloride 250 ML 125 MG IV (23:43)
[2023-01-01] MEDS: oxyCODONE HCl Immed Release 5 MG TABLET PO (23:43)
[2023-01-02] VITALS (9 sets, daily range): BP systolic 100–113; BP diastolic 52–54; PULSE 78–89; RESP 15–18; TEMP 36.1–36.4; O2SAT 96–98
[2023-01-02] MEDS: cefTRIAXone sodium 1 GM in 0.9 % Sodium Chloride 50 ML IV (05:29)
[2023-01-02 07:31] LABS: Glucose, Whole Blood 182 mg/dL (60-115)
[2023-01-02] MEDS: Insulin Lispro 100 UNIT/ML 3 ML VIAL SUBCUT ×4 (08:41→19:53)
[2023-01-02] MEDS: 0.9 % Sodium Chloride Flush 3 ML SYRINGE IVFLUSH ×3 (08:41→20:04)
[2023-01-02] MEDS: Loratadine 10 MG TABLET PO (08:42)
[2023-01-02] MEDS: Sennosides 8.6 MG TABLET 17.2 MG PO ×2 (08:42→19:49)
[2023-01-02] MEDS: buPROPion HCl XL 150 MG TAB.ER.24H PO (08:42)
[2023-01-02] MEDS: guaiFENesin LA 600 MG TAB.ER.12H 1200 MG PO ×2 (08:42→19:48)
[2023-01-02] MEDS: Gabapentin 100 MG CAPSULE 200 MG PO ×2 (08:42→19:48)
[2023-01-02] MEDS: Topiramate 100 MG TABLET PO ×2 (08:42→19:49)
[2023-01-02] MEDS: Albuterol/Iprat 2.5/0.5MG 3 ML AMPUL.NEB INHALE ×4 (09:00→20:36)
[2023-01-02 11:27] LABS: Glucose, Whole Blood 173 mg/dL (60-115)
[2023-01-02] MEDS: methylPREDNISolone Sod Succ 40 MG/ML VIAL IVPUSH ×2 (12:07→23:22)
--- NOTE | 2023-01-02 12:31 | P.PNIM_ITS ---
Subjective Subjective Date of Service: 01/02/23 Interval History: sepsis/sob Review of Systems sob seems similar . has dry cough no fevers Physical Exam Vital Signs: Vital Signs: Last Vital Signs Temp 97.6 F 01/02/23 07:47 Pulse 86 01/02/23 09:01 Resp 18 01/02/23 09:01 BP 113/54 L 01/02/23 08:35 Pulse Ox 97 01/02/23 08:35 O2 Del Method Nasal Cannula 01/02/23 07:47 O2 Flow Rate 2 01/02/23 07:47 BMI result Body Mass Index 25.5 Appearance: Alert.? Oriented X3.?sob. cvs: rrr, [id number] , no murmur res:air entry diminshed ,has b/l exp wheezing abd: no rebound or guarding ,nt, bs present. ext pulses present , no cyanosis . neuro: axo3 , nonfocal. Objective Data Active Medications Acetaminophen (Acetaminophen 325 Mg Tablet) 650 mg PO Q6H PRN PRN Reason: Pain, Mild (Pain Scale 1-3) Albuterol/Ipratropium (Albuterol/Iprat 2.5/0.5mg 3 Ml Ampul.Neb) 3 ml INHALE RQ4H PRN PRN Reason: Shortness of Breath/Wheezing Albuterol/Ipratropium (Albuterol/Iprat 2.5/0.5mg 3 Ml Ampul.Neb) 3 ml INHALE RQ4H WHILE AWAKE [facility] Last Admin: 01/02/23 09:00 Dose: 3 ml Documented By: ABIDA Aspirin (Aspirin 81 Mg Tab.Chew) 81 mg PO BEDTIME [facility] Last Admin: 01/01/23 20:54 Dose: 81 mg Documented By: ROOSEVELT Bupropion HCl (Bupropion Hcl Xl 150 Mg Tab.Er.24h) 150 mg PO DAILY [facility] Last Admin: 01/02/23 08:42 Dose: 150 mg Documented By: BRUCE Dextrose (Dextrose 50 % 25 Gm/50 Ml Syringe) 25 gm IVPUSH Q15M PRN; Protocol PRN Reason: per Hypoglycemia Standing Ord. Docusate Sodium (Docusate Sodium 100 Mg Capsule) 100 mg PO DAILY PRN PRN Reason: Constipation Gabapentin (Gabapentin 100 Mg Capsule) 200 mg PO BID [facility] Last Admin: 01/02/23 08:42 Dose: 200 mg Documented By: BRUCE Glucose (Glucose Gel 15 Gm Gel..Gram.) 15 gm PO Q15M PRN; Protocol PRN Reason: per Hypoglycemia Standing Ord. Guaifenesin (Guaifenesin La 600 Mg Tab.Er.12h) 1,200 mg PO BID [facility] Last Admin: 01/02/23 08:42 Dose: 1,200 mg Documented By: BRUCE Heparin Sodium (Porcine) (Heparin Sodium,Porcine 5,000 Unit/Ml Vial) 5,000 unit SUBCUT Q12H [facility] Last Admin: 01/02/23 12:07 Dose: Not Given Documented By: BRUCE Non-Admin Reason: Patient Refused Azithromycin 500 mg/ Sodium (Chloride) 250 mls @ 125 mls/hr IV Q24H [facility] Last Infusion: 01/02/23 01:45 Dose: 0 mls/hr Documented By: TAURUS Ceftriaxone Sodium 1 gm/ (Sodium Chloride) 50 mls @ 100 mls/hr IV Q24H [facility] Last Infusion: 01/02/23 06:02 Dose: 0 mls/hr Documented By: TAURUS Insulin Human Lispro (Insulin Lispro 100 Unit/Ml 3 Ml Vial) 0 unit SUBCUT QIDACHS [facility]; Protocol Last Admin: 01/02/23 12:06 Dose: 2 unit Documented By: BRUCE Loratadine (Loratadine 10 Mg Tablet) 10 mg PO DAILY [facility] Last Admin: 01/02/23 08:42 Dose: 10 mg Documented By: BRUCE Methylprednisolone Sodium Succinate (Methylprednisolone Sod Succ 40 Mg/Ml Vial) 40 mg IVPUSH Q12H [facility] Last Admin: 01/02/23 12:07 Dose: 40 mg Documented By: BRUCE Multivitamins/Vitamin C (Multivitamin Tablet) 1 tab PO BEDTIME [facility] Last Admin: 01/01/23 20:54 Dose: 1 tab Documented By: ROOSEVELT Nitroglycerin (Nitroglycerin 0.4 Mg Tab.Subl) 0.4 mg SUBLINGUAL Q5M PRN PRN Reason: Chest Pain Nystatin (Nystatin Powder 15 Gm Bottle) 1 appl TOPICAL TID PRN; Protocol PRN Reason: Rash Ondansetron HCl (Ondansetron Hcl 4 Mg/2 Ml Vial) 4 mg IVPUSH Q8H PRN PRN Reason: Nausea and Vomiting Oxycodone HCl (Oxycodone Hcl Immed Release 5 Mg Tablet) 5 mg PO Q8H PRN PRN Reason: Breakthrough Pain, Moderate Last Admin: 01/01/23 23:43 Dose: 5 mg Documented By: TAURUS Senna (Sennosides 8.6 Mg Tablet) 17.2 mg PO BID [facility] Last Admin: 01/02/23 08:42 Dose: 17.2 mg Documented By: BRUCE Sodium Chloride (0.9 % Sodium Chloride Flush 3 Ml Syringe) 3 ml IVFLUSH QSHIFT [facility] Last Admin: 01/02/23 08:41 Dose: 3 ml Documented By: BRUCE Topiramate (Topiramate 100 Mg Tablet) 100 mg PO BID [facility] Last Admin: 01/02/23 08:42 Dose: 100 mg Documented By: BRUCE Vitamin D (Cholecalciferol (Vitamin D3) 25 Mcg Tablet) 25 mcg PO BEDTIME [facility] Last Admin: 01/01/23 20:54 Dose: 25 mcg Documented By: ROOSEVELT Zolpidem Tartrate (Zolpidem Tartrate 5 Mg Tablet) 5 mg PO BEDTIME [facility] Last Admin: 01/01/23 20:55 Dose: 5 mg Documented By: ROOSEVELT Labs 01/01/23 06:21 01/01/23 06:21 Labs: Laboratory Results - last 24 hr 01/01/23 01/01/23 01/01/23 06:21 16:23 16:33 POC Glucose 185 H Total Bilirubin 0.3 Direct Bilirubin 0.1 AST 19 ALT 10 Alkaline Phosphatase 98 Total Protein 7.4 Albumin 3.5 Urine Color Yellow Urine Appearance Clear Urine pH 6.0 Ur Specific [place] 1.010 Urine Protein 30 (1+) H Urine Glucose (UA) Negative Urine Ketones Negative Urine Blood Trace H Urine Nitrite Negative Ur Leukocyte Esterase Small (1+) H Urine RBC 3-5 H Urine WBC 11-20 H Ur Squamous Epith Cells 0-2 Urine Bacteria None Seen Hyaline Casts 0-2 01/01/23 01/02/23 01/02/23 20:23 07:12 11:18 POC Glucose 241 H 182 H 173 H Total Bilirubin Direct Bilirubin AST ALT Alkaline Phosphatase Total Protein Albumin Urine Color Urine Appearance Urine pH Ur Specific [place] Urine Protein Urine Glucose (UA) Urine Ketones Urine Blood Urine Nitrite Ur Leukocyte Esterase Urine RBC Urine WBC Ur Squamous Epith Cells Urine Bacteria Hyaline Casts Microbiology Microbiology Results: Microbiology 01/01/23 Unknown Urine Culture - Preliminary Urine clean catch - Urine quintanilla top No growth to date. 12/31/22 21:17 Blood Culture - Preliminary Blood - Venous Prelim: GNR Gram Stain only 12/31/22 21:17 Blood Culture - Preliminary Blood - Venous No growth after 24 hours. Assessment and Plan (1) UTI (urinary tract infection): Status: Acute (2) COPD exacerbation: Status: Acute (3) Gram-negative bacteremia: Status: Acute Plan 72-year-old female past medical history of bladder cancer, COPD, diabetes, hypertension, comes into the hospital with complaints of shortness of breath ? sepsis/gram neg bacteremia fever resolved , leukocytosis and? tachycardia improving -? source likely UTI -? will treat with IV antibiotics -? follow cultures ?COPD exacerbation ct chest showed : 1.? Diffuse emphysema without acute process. 2.? Right lower lobe pulmonary nodule is stable. No new nodules seen. 3.? No abnormal mediastinal or axillary lymph nodes seen. 4.? Moderate coronary artery calcifications are stable. -? BNP negative,? no evidence of CHF exacerbation -? given history of COPD,? likely COPD exacerbation although has minimal cough and no increased sputum production continue rx with DuoNeb, Solu-Medrol, will add IV antibiotics ? acute UTI-? positive UA -? Given sepsis will treat with IV antibiotics -? follow cultures ?diabetes-? hold oral antihyperglycemics -? will treat with? low-dose sliding scale insulin -? diabetic diet ? antihypertensive -? BP soft -? hold antihypertensives ?migraine headaches -? continue? topiramate ?History of bladder cancer -? continue outpatient follow-up ?DVT prophylaxis: heparin subQ. ongoing inpatient need -sepsis/gram neg bactermia( likely uti) needing IV antibiotics ,copd excerebation-need iv steriods and nebs,blood cultures identification and sensitivities pending Time Spent With Patient Time: Total time managing care of this patient today ____ minutes. Quality Stroke Does the patient have a stroke diagnosis?: No VTE Prior VTE?: No VTE Risk Level:: Medical - moderate - high VTE Device Contraindication: Treatment Not Indicated VTE Drug Contraindication: N/A - Med Ordered
[2023-01-02 16:23] LABS: Glucose, Whole Blood 216 mg/dL (60-115)
[2023-01-02 19:46] LABS: Glucose, Whole Blood 171 mg/dL (60-115)
[2023-01-02] MEDS: Cholecalciferol (Vitamin D3) 25 MCG TABLET PO (19:48)
[2023-01-02] MEDS: Aspirin 81 MG TAB.CHEW PO (19:49)
[2023-01-02] MEDS: Multivitamin TABLET 1 TAB PO (19:49)
[2023-01-02] MEDS: Zolpidem Tartrate 5 MG TABLET PO (19:50)
[2023-01-02] MEDS: oxyCODONE HCl Immed Release 5 MG TABLET PO (19:50)
[2023-01-02] MEDS: Heparin Sodium,Porcine 5,000 UNIT/ML VIAL 5000 UNIT SUBCUT (23:22)
[2023-01-02] MEDS: Azithromycin 500 MG in 0.9 % Sodium Chloride 250 ML 125 MG IV (23:24)
[2023-01-03] VITALS (7 sets, daily range): BP systolic 107–130; BP diastolic 53–59; PULSE 71–93; RESP 17–18; TEMP 36.3–36.7; O2SAT 93–100
[2023-01-03] MEDS: cefTRIAXone sodium 1 GM in 0.9 % Sodium Chloride 50 ML IV (06:10)
[2023-01-03 07:31] LABS: Glucose, Whole Blood 150 mg/dL (60-115)
[2023-01-03] MEDS: buPROPion HCl XL 150 MG TAB.ER.24H PO (07:37)
[2023-01-03] MEDS: guaiFENesin LA 600 MG TAB.ER.12H 1200 MG PO ×2 (07:37→21:07)
[2023-01-03] MEDS: Loratadine 10 MG TABLET PO (07:38)
[2023-01-03] MEDS: Sennosides 8.6 MG TABLET 17.2 MG PO ×2 (07:38→21:06)
[2023-01-03] MEDS: Topiramate 100 MG TABLET PO ×2 (07:38→21:07)
[2023-01-03] MEDS: 0.9 % Sodium Chloride Flush 3 ML SYRINGE IVFLUSH ×3 (07:38→21:17)
[2023-01-03] MEDS: Gabapentin 100 MG CAPSULE 200 MG PO ×2 (07:38→21:07)
[2023-01-03 11:10] LABS: Glucose, Whole Blood 191 mg/dL (60-115)
--- NOTE | 2023-01-03 11:24 | P.PNIM_ITS ---
Subjective Subjective Date of Service: 01/03/23 Interval History: sepsis/sob Review of Systems sob seems improving, dry cough no fevers Physical Exam Vital Signs: Vital Signs: Last Vital Signs Temp 98.1 F 01/03/23 07:10 Pulse 76 01/03/23 07:10 Resp 18 01/03/23 07:10 BP 107/53 L 01/03/23 07:10 Pulse Ox 100 01/03/23 07:10 O2 Del Method Nasal Cannula 01/03/23 07:10 O2 Flow Rate 2 01/03/23 07:10 BMI result Body Mass Index 25.5 Appearance: Alert.? Oriented X3. cvs: rrr, [id number] , no murmur res:air entry diminshed ,few rhonchii scattered. abd: no rebound or guarding ,nt, bs present. ext pulses present , no cyanosis . neuro: axo3 , nonfocal. Objective Data Active Medications Acetaminophen (Acetaminophen 325 Mg Tablet) 650 mg PO Q6H PRN PRN Reason: Pain, Mild (Pain Scale 1-3) Albuterol/Ipratropium (Albuterol/Iprat 2.5/0.5mg 3 Ml Ampul.Neb) 3 ml INHALE RQ4H PRN PRN Reason: Shortness of Breath/Wheezing Albuterol/Ipratropium (Albuterol/Iprat 2.5/0.5mg 3 Ml Ampul.Neb) 3 ml INHALE RQ4H WHILE AWAKE [facility] Last Admin: 01/03/23 08:22 Dose: Not Given Documented By: ADRIANNA Non-Admin Reason: Patient Refused Aspirin (Aspirin 81 Mg Tab.Chew) 81 mg PO BEDTIME [facility] Last Admin: 01/02/23 19:49 Dose: 81 mg Documented By: TORIBIO Bupropion HCl (Bupropion Hcl Xl 150 Mg Tab.Er.24h) 150 mg PO DAILY [facility] Last Admin: 01/03/23 07:37 Dose: 150 mg Documented By: JOSE Dextrose (Dextrose 50 % 25 Gm/50 Ml Syringe) 25 gm IVPUSH Q15M PRN; Protocol PRN Reason: per Hypoglycemia Standing Ord. Docusate Sodium (Docusate Sodium 100 Mg Capsule) 100 mg PO DAILY PRN PRN Reason: Constipation Gabapentin (Gabapentin 100 Mg Capsule) 200 mg PO BID [facility] Last Admin: 01/03/23 07:38 Dose: 200 mg Documented By: JOSE Glucose (Glucose Gel 15 Gm Gel..Gram.) 15 gm PO Q15M PRN; Protocol PRN Reason: per Hypoglycemia Standing Ord. Guaifenesin (Guaifenesin La 600 Mg Tab.Er.12h) 1,200 mg PO BID [facility] Last Admin: 01/03/23 07:37 Dose: 1,200 mg Documented By: JOSE Heparin Sodium (Porcine) (Heparin Sodium,Porcine 5,000 Unit/Ml Vial) 5,000 unit SUBCUT Q12H [facility] Last Admin: 01/02/23 23:22 Dose: 5,000 unit Documented By: TORIBIO Azithromycin 500 mg/ Sodium (Chloride) 250 mls @ 125 mls/hr IV Q24H [facility] Last Infusion: 01/03/23 01:30 Dose: 0 mls/hr Documented By: TORIBIO Ceftriaxone Sodium 1 gm/ (Sodium Chloride) 50 mls @ 100 mls/hr IV Q24H [facility] Last Infusion: 01/03/23 06:42 Dose: 0 mls/hr Documented By: TORIBIO Insulin Human Lispro (Insulin Lispro 100 Unit/Ml 3 Ml Vial) 0 unit SUBCUT QIDACHS [facility]; Protocol Last Admin: 01/03/23 07:40 Dose: Not Given Documented By: JOSE Non-Admin Reason: No Insulin Coverage Loratadine (Loratadine 10 Mg Tablet) 10 mg PO DAILY [facility] Last Admin: 01/03/23 07:38 Dose: 10 mg Documented By: JOSE Methylprednisolone Sodium Succinate (Methylprednisolone Sod Succ 40 Mg/Ml Vial) 40 mg IVPUSH Q12H [facility] Last Admin: 01/02/23 23:22 Dose: 40 mg Documented By: TORIBIO Multivitamins/Vitamin C (Multivitamin Tablet) 1 tab PO BEDTIME [facility] Last Admin: 01/02/23 19:49 Dose: 1 tab Documented By: TORIBIO Nitroglycerin (Nitroglycerin 0.4 Mg Tab.Subl) 0.4 mg SUBLINGUAL Q5M PRN PRN Reason: Chest Pain Nystatin (Nystatin Powder 15 Gm Bottle) 1 appl TOPICAL TID PRN; Protocol PRN Reason: Rash Ondansetron HCl (Ondansetron Hcl 4 Mg/2 Ml Vial) 4 mg IVPUSH Q8H PRN PRN Reason: Nausea and Vomiting Oxycodone HCl (Oxycodone Hcl Immed Release 5 Mg Tablet) 5 mg PO Q8H PRN PRN Reason: Breakthrough Pain, Moderate Last Admin: 01/02/23 19:50 Dose: 5 mg Documented By: TORIBIO Senna (Sennosides 8.6 Mg Tablet) 17.2 mg PO BID [facility] Last Admin: 01/03/23 07:38 Dose: 17.2 mg Documented By: JOSE Sodium Chloride (0.9 % Sodium Chloride Flush 3 Ml Syringe) 3 ml IVFLUSH QSHIFT [facility] Last Admin: 01/03/23 07:38 Dose: 3 ml Documented By: JOSE Topiramate (Topiramate 100 Mg Tablet) 100 mg PO BID [facility] Last Admin: 01/03/23 07:38 Dose: 100 mg Documented By: JOSE Vitamin D (Cholecalciferol (Vitamin D3) 25 Mcg Tablet) 25 mcg PO BEDTIME [facility] Last Admin: 01/02/23 19:48 Dose: 25 mcg Documented By: TORIBIO Zolpidem Tartrate (Zolpidem Tartrate 5 Mg Tablet) 5 mg PO BEDTIME [facility] Last Admin: 01/02/23 19:50 Dose: 5 mg Documented By: TORIBIO Labs 01/01/23 06:21 01/01/23 06:21 Labs: Laboratory Results - last 24 hr 01/02/23 01/02/23 01/02/23 11:18 16:19 19:35 POC Glucose 173 H 216 H 171 H 01/03/23 01/03/23 07:16 11:06 POC Glucose 150 H 191 H Microbiology Microbiology Results: Microbiology 12/31/22 21:17 Blood Culture - Preliminary Blood - Venous Prelim: GNR Gram Stain only 12/31/22 21:17 Blood Culture - Preliminary Blood - Venous No growth after 48 hours. 01/01/23 Unknown Urine Culture - Preliminary Urine clean catch - Urine quintanilla top No growth to date. Assessment and Plan (1) UTI (urinary tract infection): Status: Acute (2) COPD exacerbation: Status: Acute (3) Gram-negative bacteremia: Status: Acute Plan 72-year-old female past medical history of bladder cancer, COPD, diabetes, hypertension, comes into the hospital with complaints of shortness of breath ? sepsis/gram neg bacteremia fever resolved , leukocytosis and? tachycardia improving -? source likely UTI -? will treat with IV antibiotics -? follow cultures ?COPD exacerbation ct chest showed : 1.? Diffuse emphysema without acute process. 2.? Right lower lobe pulmonary nodule is stable. No new nodules seen. 3.? No abnormal mediastinal or axillary lymph nodes seen. 4.? Moderate coronary artery calcifications are stable. BNP negative,? no evidence of CHF exacerbation given history of COPD,? likely COPD exacerbation although has minimal cough and no increased sputum production continue rx with DuoNeb, Solu-Medrol. ? acute UTI-? positive UA/gram neg bacteremia -? Given sepsis will treat with IV antibiotics -? follow cultures ?diabetes-? hold oral antihyperglycemics -? will treat with? low-dose sliding scale insulin -? diabetic diet ? antihypertensive -? BP soft -? hold antihypertensives ?migraine headaches -? continue? topiramate ?History of bladder cancer -? continue outpatient follow-up ?DVT prophylaxis: heparin subQ. ongoing inpatient need -sepsis/gram neg bactermia( likely uti) needing IV antibiotics ,copd excerebation-need iv steriods and nebs,blood cultures id entification and sensitivities pending Time Spent With Patient Time: Total time managing care of this patient today ____ minutes. Quality Stroke Does the patient have a stroke diagnosis?: No VTE Prior VTE?: No VTE Risk Level:: Medical - moderate - high VTE Device Contraindication: Treatment Not Indicated VTE Drug Contraindication: N/A - Med Ordered
[2023-01-03] MEDS: Heparin Sodium,Porcine 5,000 UNIT/ML VIAL 5000 UNIT SUBCUT (12:03)
[2023-01-03] MEDS: Insulin Lispro 100 UNIT/ML 3 ML VIAL SUBCUT ×2 (12:03→21:07)
[2023-01-03] MEDS: methylPREDNISolone Sod Succ 40 MG/ML VIAL IVPUSH (12:03)
[2023-01-03] MEDS: Albuterol/Iprat 2.5/0.5MG 3 ML AMPUL.NEB INHALE ×2 (16:22→19:23)
[2023-01-03 16:32] LABS: Glucose, Whole Blood 130 mg/dL (60-115)
[2023-01-03 20:33] LABS: Glucose, Whole Blood 185 mg/dL (60-115)
[2023-01-03] MEDS: Cholecalciferol (Vitamin D3) 25 MCG TABLET PO (21:06)
[2023-01-03] MEDS: Aspirin 81 MG TAB.CHEW PO (21:07)
[2023-01-03] MEDS: Zolpidem Tartrate 5 MG TABLET PO (21:07)
[2023-01-03] MEDS: Multivitamin TABLET 1 TAB PO (21:07)
[2023-01-04] MEDS: Azithromycin 500 MG in 0.9 % Sodium Chloride 250 ML 125 MG IV (00:07)
[2023-01-04] MEDS: Heparin Sodium,Porcine 5,000 UNIT/ML VIAL 5000 UNIT SUBCUT ×2 (00:08→11:54)
[2023-01-04] MEDS: methylPREDNISolone Sod Succ 40 MG/ML VIAL IVPUSH ×2 (00:09→11:53)
[2023-01-04 04:00] VITALS: BP 128/58; PULSE 85; RESP 17; TEMP 36.3; O2SAT 93
[2023-01-04] MEDS: cefTRIAXone sodium 1 GM in 0.9 % Sodium Chloride 50 ML IV (05:43)
[2023-01-04 07:08] VITALS: BP 126/60; PULSE 81; RESP 16; TEMP 36.7; O2SAT 95
[2023-01-04 07:25] LABS: Glucose, Whole Blood 154 mg/dL (60-115)
[2023-01-04] MEDS: Insulin Lispro 100 UNIT/ML 3 ML VIAL SUBCUT ×3 (08:12→22:05)
[2023-01-04] MEDS: Loratadine 10 MG TABLET PO (08:12)
[2023-01-04] MEDS: guaiFENesin LA 600 MG TAB.ER.12H 1200 MG PO ×2 (08:12→21:59)
[2023-01-04] MEDS: Topiramate 100 MG TABLET PO ×2 (08:12→21:59)
[2023-01-04] MEDS: Sennosides 8.6 MG TABLET 17.2 MG PO ×2 (08:12→22:00)
[2023-01-04] MEDS: Gabapentin 100 MG CAPSULE 200 MG PO ×2 (08:12→21:59)
[2023-01-04] MEDS: buPROPion HCl XL 150 MG TAB.ER.24H PO (08:13)
[2023-01-04] MEDS: 0.9 % Sodium Chloride Flush 3 ML SYRINGE IVFLUSH ×3 (08:13→22:07)
--- NOTE | 2023-01-04 10:42 | P.PNIM_ITS ---
Subjective Subjective Date of Service: 01/04/23 Interval History: gram neg bacteremia Review of Systems sob seems improved,no fever or cough or urinary c/o. Physical Exam Vital Signs: Vital Signs: Last Vital Signs Temp 98.1 F 01/04/23 07:08 Pulse 81 01/04/23 07:08 Resp 16 01/04/23 07:08 BP 126/60 01/04/23 07:08 Pulse Ox 95 01/04/23 07:08 O2 Del Method Room Air 01/04/23 07:08 O2 Flow Rate 2 01/03/23 07:10 BMI result Body Mass Index 25.5 Appearance: Alert.? Oriented X3. cvs: rrr, [id number] , no murmur res:air entry diminshed ,few rhonchii scattered. abd: no rebound or guarding ,nt, bs present. ext pulses present , no cyanosis . neuro: axo3 , nonfocal. Objective Data Active Medications Acetaminophen (Acetaminophen 325 Mg Tablet) 650 mg PO Q6H PRN PRN Reason: Pain, Mild (Pain Scale 1-3) Albuterol/Ipratropium (Albuterol/Iprat 2.5/0.5mg 3 Ml Ampul.Neb) 3 ml INHALE RQ4H PRN PRN Reason: Shortness of Breath/Wheezing Albuterol/Ipratropium (Albuterol/Iprat 2.5/0.5mg 3 Ml Ampul.Neb) 3 ml INHALE RQ4H WHILE AWAKE [facility] Last Admin: 01/04/23 09:24 Dose: Not Given Documented By: VALERIO Non-Admin Reason: Patient Refused Aspirin (Aspirin 81 Mg Tab.Chew) 81 mg PO BEDTIME [facility] Last Admin: 01/03/23 21:07 Dose: 81 mg Documented By: DECLAN Bupropion HCl (Bupropion Hcl Xl 150 Mg Tab.Er.24h) 150 mg PO DAILY [facility] Last Admin: 01/04/23 08:13 Dose: 150 mg Documented By: JOSE Dextrose (Dextrose 50 % 25 Gm/50 Ml Syringe) 25 gm IVPUSH Q15M PRN; Protocol PRN Reason: per Hypoglycemia Standing Ord. Docusate Sodium (Docusate Sodium 100 Mg Capsule) 100 mg PO DAILY PRN PRN Reason: Constipation Gabapentin (Gabapentin 100 Mg Capsule) 200 mg PO BID [facility] Last Admin: 01/04/23 08:12 Dose: 200 mg Documented By: JOSE Glucose (Glucose Gel 15 Gm Gel..Gram.) 15 gm PO Q15M PRN; Protocol PRN Reason: per Hypoglycemia Standing Ord. Guaifenesin (Guaifenesin La 600 Mg Tab.Er.12h) 1,200 mg PO BID [facility] Last Admin: 01/04/23 08:12 Dose: 1,200 mg Documented By: JOSE Heparin Sodium (Porcine) (Heparin Sodium,Porcine 5,000 Unit/Ml Vial) 5,000 unit SUBCUT Q12H [facility] Last Admin: 01/04/23 00:08 Dose: 5,000 unit Documented By: DECLAN Azithromycin 500 mg/ Sodium (Chloride) 250 mls @ 125 mls/hr IV Q24H [facility] Last Infusion: 01/04/23 02:07 Dose: 0 mls/hr Documented By: DECLAN Ceftriaxone Sodium 1 gm/ (Sodium Chloride) 50 mls @ 100 mls/hr IV Q24H [facility] Last Infusion: 01/04/23 06:13 Dose: 0 mls/hr Documented By: DECLAN Insulin Human Lispro (Insulin Lispro 100 Unit/Ml 3 Ml Vial) 0 unit SUBCUT QIDACHS [facility]; Protocol Last Admin: 01/04/23 08:12 Dose: 2 unit Documented By: JOSE Loratadine (Loratadine 10 Mg Tablet) 10 mg PO DAILY [facility] Last Admin: 01/04/23 08:12 Dose: 10 mg Documented By: JOSE Methylprednisolone Sodium Succinate (Methylprednisolone Sod Succ 40 Mg/Ml Vial) 40 mg IVPUSH Q12H [facility] Last Admin: 01/04/23 00:09 Dose: 40 mg Documented By: DECLAN Multivitamins/Vitamin C (Multivitamin Tablet) 1 tab PO BEDTIME [facility] Last Admin: 01/03/23 21:07 Dose: 1 tab Documented By: DECLAN Nitroglycerin (Nitroglycerin 0.4 Mg Tab.Subl) 0.4 mg SUBLINGUAL Q5M PRN PRN Reason: Chest Pain Nystatin (Nystatin Powder 15 Gm Bottle) 1 appl TOPICAL TID PRN; Protocol PRN Reason: Rash Ondansetron HCl (Ondansetron Hcl 4 Mg/2 Ml Vial) 4 mg IVPUSH Q8H PRN PRN Reason: Nausea and Vomiting Oxycodone HCl (Oxycodone Hcl Immed Release 5 Mg Tablet) 5 mg PO Q8H PRN PRN Reason: Breakthrough Pain, Moderate Last Admin: 01/02/23 19:50 Dose: 5 mg Documented By: TORIBIO Senna (Sennosides 8.6 Mg Tablet) 17.2 mg PO BID [facility] Last Admin: 01/04/23 08:12 Dose: 17.2 mg Documented By: JOSE Sodium Chloride (0.9 % Sodium Chloride Flush 3 Ml Syringe) 3 ml IVFLUSH QSHIFT [facility] Last Admin: 01/04/23 08:13 Dose: 3 ml Documented By: JOSE Topiramate (Topiramate 100 Mg Tablet) 100 mg PO BID [facility] Last Admin: 01/04/23 08:12 Dose: 100 mg Documented By: JOSE Vitamin D (Cholecalciferol (Vitamin D3) 25 Mcg Tablet) 25 mcg PO BEDTIME [facility] Last Admin: 01/03/23 21:06 Dose: 25 mcg Documented By: DECLAN Zolpidem Tartrate (Zolpidem Tartrate 5 Mg Tablet) 5 mg PO BEDTIME [facility] Last Admin: 01/03/23 21:07 Dose: 5 mg Documented By: DECLAN Labs 01/01/23 06:21 01/01/23 06:21 Labs: Laboratory Results - last 24 hr 01/03/23 01/03/23 01/03/23 11:06 16:27 20:29 POC Glucose 191 H 130 H 185 H 01/04/23 07:19 POC Glucose 154 H Microbiology Microbiology Results: Microbiology 01/01/23 Unknown Urine Culture - Final Urine clean catch - Urine quintanilla top 12/31/22 21:17 Blood Culture - Preliminary Blood - Venous Prelim: GNR Gram Stain only Assessment and Plan (1) UTI (urinary tract infection): Status: Acute (2) COPD exacerbation: Status: Acute (3) Gram-negative bacteremia: Status: Acute Plan 72-year-old female past medical history of bladder cancer, COPD, diabetes, hypertension, comes into the hospital with complaints of shortness of breath ? sepsis/gram neg bacteremia fever resolved , leukocytosis and? tachycardia improving -? source likely UTI -? will treat with IV antibiotics -? follow cultures id eval. ?COPD exacerbation ct chest showed : 1.? Diffuse emphysema without acute process. 2.? Right lower lobe pulmonary nodule is stable. No new nodules seen. 3.? No abnormal mediastinal or axillary lymph nodes seen. 4.? Moderate coronary artery calcifications are stable. BNP negative,? no evidence of CHF exacerbation given history of COPD,? likely COPD exacerbation although has minimal cough and no increased sputum production continue rx with DuoNeb, Solu-Medrol. ? acute UTI-? positive UA/gram neg bacteremia -? Given sepsis will treat with IV antibiotics -? follow cultures ?diabetes-? hold oral antihyperglycemics -? will treat with? low-dose sliding scale insulin -? diabetic diet ? antihypertensive -? BP soft -? hold antihypertensives ?migraine headaches -? continue? topiramate ?History of bladder cancer -? continue outpatient follow-up ?DVT prophylaxis: heparin subQ. ongoing inpatient need -sepsis/gram neg bactermia( likely uti) needing IV antibiotics ,copd excerebation-need iv steriods and nebs,blood cultures identification and sensitivities pending Time Spent With Patient Time: Total time managing care of this patient today ____ minutes. Quality Stroke Does the patient have a stroke diagnosis?: No VTE Prior VTE?: No VTE Risk Level:: Medical - moderate - high VTE Device Contraindication: Treatment Not Indicated VTE Drug Contraindication: N/A - Med Ordered
[2023-01-04 11:22] LABS: Glucose, Whole Blood 148 mg/dL (60-115)
[2023-01-04 15:14] VITALS: BP 137/63; PULSE 89; RESP 18; TEMP 36.8; O2SAT 95
[2023-01-04 16:16] LABS: Glucose, Whole Blood 162 mg/dL (60-115)
[2023-01-04 16:20] VITALS: PULSE 91; RESP 16; O2SAT 96
[2023-01-04] MEDS: Albuterol/Iprat 2.5/0.5MG 3 ML AMPUL.NEB INHALE ×2 (16:20→22:16)
[2023-01-04 19:09] VITALS: BP 132/60; PULSE 99; RESP 17; TEMP 36.4; O2SAT 95
[2023-01-04 20:51] LABS: Glucose, Whole Blood 230 mg/dL (60-115)
[2023-01-04] MEDS: Zolpidem Tartrate 5 MG TABLET PO (21:59)
[2023-01-04] MEDS: Cholecalciferol (Vitamin D3) 25 MCG TABLET PO (21:59)
[2023-01-04] MEDS: Aspirin 81 MG TAB.CHEW PO (22:00)
[2023-01-04] MEDS: Multivitamin TABLET 1 TAB PO (22:00)
[2023-01-04] MEDS: Calcium Carbonate 750 MG TAB.CHEW PO (22:00)
[2023-01-04 22:16] VITALS: PULSE 87; RESP 17; O2SAT 96
[2023-01-05] VITALS (7 sets, daily range): BP systolic 114–138; BP diastolic 53–63; PULSE 88–97; RESP 15–18; TEMP 36.1–36.9; O2SAT 93–96
[2023-01-05] MEDS: Heparin Sodium,Porcine 5,000 UNIT/ML VIAL 5000 UNIT SUBCUT ×3 (00:07→23:50)
[2023-01-05] MEDS: Azithromycin 500 MG in 0.9 % Sodium Chloride 250 ML 125 MG IV (00:07)
[2023-01-05] MEDS: methylPREDNISolone Sod Succ 40 MG/ML VIAL IVPUSH ×2 (00:07→11:40)
[2023-01-05] MEDS: cefTRIAXone sodium 1 GM in 0.9 % Sodium Chloride 50 ML IV (05:29)
[2023-01-05 07:27] LABS: Glucose, Whole Blood 184 mg/dL (60-115)
[2023-01-05] MEDS: Insulin Lispro 100 UNIT/ML 3 ML VIAL SUBCUT ×3 (07:33→20:24)
[2023-01-05] MEDS: Gabapentin 100 MG CAPSULE 200 MG PO ×2 (07:34→19:00)
[2023-01-05] MEDS: guaiFENesin LA 600 MG TAB.ER.12H 1200 MG PO ×2 (07:34→19:01)
[2023-01-05] MEDS: buPROPion HCl XL 150 MG TAB.ER.24H PO (07:34)
[2023-01-05] MEDS: Sennosides 8.6 MG TABLET 17.2 MG PO ×2 (07:34→19:01)
[2023-01-05] MEDS: Loratadine 10 MG TABLET PO (07:35)
[2023-01-05] MEDS: Topiramate 100 MG TABLET PO ×2 (07:35→19:01)
[2023-01-05] MEDS: 0.9 % Sodium Chloride Flush 3 ML SYRINGE IVFLUSH ×3 (07:37→23:55)
[2023-01-05] MEDS: Albuterol/Iprat 2.5/0.5MG 3 ML AMPUL.NEB INHALE ×3 (11:13→19:49)
[2023-01-05 11:32] LABS: Glucose, Whole Blood 168 mg/dL (60-115)
[2023-01-05] MEDS: metroNIDAZOLE 500 MG TABLET PO ×2 (12:43→23:50)
--- NOTE | 2023-01-05 13:23 | P.PNIM_ITS ---
Subjective Subjective Date of Service: 01/05/23 Interval History: gram neg bacteremia Review of Systems sob seems improved,no fever or cough or urinary c/o. Physical Exam Vital Signs: Vital Signs: Last Vital Signs Temp 98.5 F 01/05/23 08:00 Pulse 88 01/05/23 11:14 Resp 18 01/05/23 11:14 BP 138/63 01/05/23 08:00 Pulse Ox 95 01/05/23 08:00 O2 Del Method Room Air 01/05/23 08:00 O2 Flow Rate 2 01/03/23 07:10 BMI result Body Mass Index 25.5 Appearance: Alert.? Oriented X3. cvs: rrr, [id number] , no murmur res:air entry diminshed ,few rhonchii scattered. abd: no rebound or guarding ,nt, bs present. ext pulses present , no cyanosis . neuro: axo3 , nonfocal. Objective Data Active Medications Acetaminophen (Acetaminophen 325 Mg Tablet) 650 mg PO Q6H PRN PRN Reason: Pain, Mild (Pain Scale 1-3) Albuterol/Ipratropium (Albuterol/Iprat 2.5/0.5mg 3 Ml Ampul.Neb) 3 ml INHALE RQ4H PRN PRN Reason: Shortness of Breath/Wheezing Last Admin: 01/04/23 22:16 Dose: 3 ml Documented By: ANU Albuterol/Ipratropium (Albuterol/Iprat 2.5/0.5mg 3 Ml Ampul.Neb) 3 ml INHALE RQ4H WHILE AWAKE [facility] Last Admin: 01/05/23 11:13 Dose: 3 ml Documented By: BALAJI Aspirin (Aspirin 81 Mg Tab.Chew) 81 mg PO BEDTIME [facility] Last Admin: 01/04/23 22:00 Dose: 81 mg Documented By: ROOSEVELT Bupropion HCl (Bupropion Hcl Xl 150 Mg Tab.Er.24h) 150 mg PO DAILY [facility] Last Admin: 01/05/23 07:34 Dose: 150 mg Documented By: JOSE Calcium Carbonate (Calcium Carbonate 750 Mg Tab.Chew) 750 mg PO Q4H PRN PRN Reason: heartburn Last Admin: 01/04/23 22:00 Dose: 750 mg Documented By: ROOSEVELT Dextrose (Dextrose 50 % 25 Gm/50 Ml Syringe) 25 gm IVPUSH Q15M PRN; Protocol PRN Reason: per Hypoglycemia Standing Ord. Docusate Sodium (Docusate Sodium 100 Mg Capsule) 100 mg PO DAILY PRN PRN Reason: Constipation Gabapentin (Gabapentin 100 Mg Capsule) 200 mg PO BID [facility] Last Admin: 01/05/23 07:34 Dose: 200 mg Documented By: JOSE Glucose (Glucose Gel 15 Gm Gel..Gram.) 15 gm PO Q15M PRN; Protocol PRN Reason: per Hypoglycemia Standing Ord. Guaifenesin (Guaifenesin La 600 Mg Tab.Er.12h) 1,200 mg PO BID [facility] Last Admin: 01/05/23 07:34 Dose: 1,200 mg Documented By: JOSE Heparin Sodium (Porcine) (Heparin Sodium,Porcine 5,000 Unit/Ml Vial) 5,000 unit SUBCUT Q12H [facility] Last Admin: 01/05/23 11:40 Dose: 5,000 unit Documented By: TAURUS Ceftriaxone Sodium 1 gm/ (Sodium Chloride) 50 mls @ 100 mls/hr IV Q24H [facility] Last Infusion: 01/05/23 06:28 Dose: 0 mls/hr Documented By: ROOSEVELT Insulin Human Lispro (Insulin Lispro 100 Unit/Ml 3 Ml Vial) 0 unit SUBCUT QI DACHS [facility]; Protocol Last Admin: 01/05/23 11:40 Dose: 2 unit Documented By: TAURUS Loratadine (Loratadine 10 Mg Tablet) 10 mg PO DAILY [facility] Last Admin: 01/05/23 07:35 Dose: 10 mg Documented By: JOSE Methylprednisolone Sodium Succinate (Methylprednisolone Sod Succ 40 Mg/Ml Vial) 40 mg IVPUSH Q12H [facility] Last Admin: 01/05/23 11:40 Dose: 40 mg Documented By: TAURUS Metronidazole (Metronidazole 500 Mg Tablet) 500 mg PO Q12H [facility] Last Admin: 01/05/23 12:43 Dose: 500 mg Documented By: TAURUS Multivitamins/Vitamin C (Multivitamin Tablet) 1 tab PO BEDTIME [facility] Last Admin: 01/04/23 22:00 Dose: 1 tab Documented By: ROOSEVELT Nitroglycerin (Nitroglycerin 0.4 Mg Tab.Subl) 0.4 mg SUBLINGUAL Q5M PRN PRN Reason: Chest Pain Nystatin (Nystatin Powder 15 Gm Bottle) 1 appl TOPICAL TID PRN; Protocol PRN Reason: Rash Ondansetron HCl (Ondansetron Hcl 4 Mg/2 Ml Vial) 4 mg IVPUSH Q8H PRN PRN Reason: Nausea and Vomiting Oxycodone HCl (Oxycodone Hcl Immed Release 5 Mg Tablet) 5 mg PO Q8H PRN PRN Reason: Breakthrough Pain, Moderate Last Admin: 01/02/23 19:50 Dose: 5 mg Documented By: TORIBIO Senna (Sennosides 8.6 Mg Tablet) 17.2 mg PO BID [facility] Last Admin: 01/05/23 07:34 Dose: 17.2 mg Documented By: JOSE Sodium Chloride (0.9 % Sodium Chloride Flush 3 Ml Syringe) 3 ml IVFLUSH QSHIFT [facility] Last Admin: 01/05/23 07:37 Dose: 3 ml Documented By: JOSE Topiramate (Topiramate 100 Mg Tablet) 100 mg PO BID [facility] Last Admin: 01/05/23 07:35 Dose: 100 mg Documented By: JOSE Vitamin D (Cholecalciferol (Vitamin D3) 25 Mcg Tablet) 25 mcg PO BEDTIME [facility] Last Admin: 01/04/23 21:59 Dose: 25 mcg Documented By: ROOSEVELT Zolpidem Tartrate (Zolpidem Tartrate 5 Mg Tablet) 5 mg PO BEDTIME [facility] Last Admin: 01/04/23 21:59 Dose: 5 mg Documented By: ROOSEVELT Labs 01/01/23 06:21 01/01/23 06:21 Labs: Laboratory Results - last 24 hr 01/04/23 01/04/23 01/05/23 16:12 20:42 07:21 POC Glucose 162 H 230 H 184 H 01/05/23 11:18 POC Glucose 168 H Microbiology Microbiology Results: Microbiology 12/31/22 21:17 Blood Culture - Final Blood - Venous Bacteroides thetaiotaomicron Assessment and Plan (1) UTI (urinary tract infection): Status: Acute (2) COPD exacerbation: Status: Acute (3) Gram-negative bacteremia: Status: Acute Plan 72-year-old female past medical history of bladder cancer, COPD, diabetes, hypertension, comes into the hospital with complaints of shortness of breath ? sepsis/Bacteroides thetaiotaomicron(?considering history of bladder cancer and above CT abnormality question colovesical fistula) fever resolved , tachycardia improved. leukocytosis improving CT abdomen pelvis (12/30/22):Since 11/04/2022, multiple intraperitoneal, retroperitoneal and pelvic masses have increased in size compatible with disease progression. Bacteroides? source unclear -d/w id -considering history of bladder cancer and above CT abnormality question colovesical fistula Continue ceftriaxone, added Flagyl, urology consult In addition spoke to hemtaology/oncolgy (DR tabares) talk to patient for for above. ?COPD exacerbation , less likley pneumonia since ct chest negative. ct chest showed : 1.? Diffuse emphysema without acute process. 2.? Right lower lobe pulmonary nodule is stable. No new nodules seen. 3.? No abnormal mediastinal or axillary lymph nodes seen. 4.? Moderate coronary artery calcifications are stable. BNP negative,? no evidence of CHF exacerbation given history of COPD,? likely COPD exacerbation although has minimal cough and no increased sputum production continue rx with DuoNeb, po prednisone. ?diabetes-? hold oral antihyperglycemics -? will treat with? low-dose sliding scale insulin -? diabetic diet ? antihypertensive -? BP soft -? hold antihypertensives ?migraine headaches -? continue? topiramate ?History of bladder cancer -? continue outpatient follow-up ?DVT prophylaxis: heparin subQ. ongoing inpatient need -sepsis/bacteriods bacteremia - needing IV antibiotics and further eval/workup if needed per urology , also oncology dr tabares will follow up. Time Spent With Patient Time: Total time managing care of this patient today ____ minutes. Quality Stroke Does the patient have a stroke diagnosis?: No VTE Prior VTE?: No VTE Risk Level:: Medical - moderate - high VTE Device Contraindication: Treatment Not Indicated VTE Drug Contraindication: N/A - Med Ordered
[2023-01-05 16:17] LABS: Glucose, Whole Blood 138 mg/dL (60-115)
--- NOTE | 2023-01-05 16:23 | P.CNID_ITS ---
History of Present Illness Data of Consult Service Date: 01/05/23 Requesting physician: Cole Goins Primary Care Provider: Linda Matthews MD HPI Reason for consult: bacteremia She presents with weakness and shortness of breath for a week. She is supposed to get chemotherapy within the week for peritoneal implants from bladder cancer. CT scan shows enlarging metastases. She has a blood culture showing bacteroides. Review of Systems 2 Review of Systems: Yes all other systems are reviewed and are negative PMFSH Past Medical History Medical History Anxiety CAD (coronary artery disease) Cervical stenosis of spine COPD (chronic obstructive pulmonary disease) Depression Diabetic polyneuropathy associated with type 2 diabetes mellitus DM type 2 (diabetes mellitus, type 2) Elevated BUN History of smoking at least 1 pack per day for at least 30 years HTN (hypertension) Hyperlipidemia Left leg swelling Low vitamin D level Mass of peritoneum Migraine headache Neck pain Nonalcoholic steatohepatitis (CHRISTINE) Pulmonary nodule 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 Smoker Vertigo Vitamin B 12 deficiency Vitamin B12 deficiency Family History Family History Mother CVD (cardiovascular disease) CVA (cerebral vascular accident) Father CVD (cardiovascular disease) Sister Breast cancer Family/Other Breast cancer Family history: reviewed and not pertinent Surgical History Surgical History Fusion of spine of cervical region History of carpal tunnel release History of heart artery stent History of hysterectomy Social History Social History Household Members: Other Household Members Other:: house mate Housing: House Do you presently have visiting nurse or other home services: No Alcohol intake: never Patient Tobacco Use Status: Current everyday Tobacco user Tobacco use type: Cigarette Cigarette Packs Per Day: 0.5 Cigarettes Per Day: 6 Years Smoked: 63 Smoked in Last 30 Days: Yes e-Cigarette/Vaping Use: Never Used Patient Interested in Nicotine Replacement: Yes Patient Given Instructions on How to Stop Smoking: No (pt has information at home) Second Hand Smoke Exposure: No Use of substances other than those prescribed or required for medical reasons: No Currently Displaying Signs/Symptoms of Drug Intoxication Withdrawal: No Have you been hit, kicked, punched, or otherwise hurt by someone within the past year? If so, by whom?: No Do you feel safe in your current relationship?: No Current Relationship Is there a partner from a previous relationship who is making you feel unsafe now?: No Are you made to feel afraid or neglected: No Advance Directives: Yes Advance Directives on File: Yes Advance Directives Date on File: 11/14/21 Do you have thoughts of harming others: None Do you have a plan to hurt others: No Plan Recently lost weight without trying: Unsure Eating poorly because of decreased appetite: Yes Patient : No : No Poor oral hygiene: No service: No Current occupational status: retired Current occupation: Right Handed Cognitive needs: No Hearing needs: No Vision needs: Yes Meds Allergies Allergy/AdvReac Type Severity Reaction Status Date / Time amoxicillin [AMOXICILLIN] Allergy Mild DIARRHEA Verified 12/25/22 10:32 Darvocet A500 Allergy Unknown upset Verified 12/25/22 10:32 stomach melatonin Allergy Unknown Nausea and Verified 12/25/22 10:32 Vomiting oxycodone [From PERCOCET] Allergy Unknown NAUSEA,VOMI Verified 12/25/22 10:32 TING propoxyphene Allergy Unknown Stomach Verified 12/25/22 10:32 Upset influenza virus vaccine, AdvReac Intermediate NAUSEA,DIAR Verified 12/25/22 10:32 specific WU [FLU VACCINE] lactose [LACTOSE] AdvReac Intermediate GI UPSET Verified 12/25/22 10:32 metronidazole [From FLAGYL] AdvReac Intermediate NAUSEA & Verified 12/25/22 10:32 VOMITING Sulfa (Sulfonamide AdvReac Intermediate EYE DROPS Verified 12/25/22 10:32 Antibiotics) (ONLY)-IRITIS Active Medications: Current Medications Acetaminophen (Acetaminophen 325 Mg Tablet) 650 mg PO Q6H PRN PRN Reason: Pain, Mild (Pain Scale 1-3) Albuterol/Ipratropium (Albuterol/Iprat 2.5/0.5mg 3 Ml Ampul.Neb) 3 ml INHALE RQ4H PRN PRN Reason: Shortness of Breath/Wheezing Last Admin: 01/04/23 22:16 Dose: 3 ml Albuterol/Ipratropium (Albuterol/Iprat 2.5/0.5mg 3 Ml Ampul.Neb) 3 ml INHALE RQ4H WHILE AWAKE [facility] Last Admin: 01/05/23 15:15 Dose: 3 ml Aspirin (Aspirin 81 Mg Tab.Chew) 81 mg PO BEDTIME [facility] Last Admin: 01/04/23 22:00 Dose: 81 mg Bupropion HCl (Bupropion Hcl Xl 150 Mg Tab.Er.24h) 150 mg PO DAILY [facility] Last Admin: 01/05/23 07:34 Dose: 150 mg Calcium Carbonate (Calcium Carbonate 750 Mg Tab.Chew) 750 mg PO Q4H PRN PRN Reason: heartburn Last Admin: 01/04/23 22:00 Dose: 750 mg Dextrose (Dextrose 50 % 25 Gm/50 Ml Syringe) 25 gm IVPUSH Q15M PRN; Protocol PRN Reason: per Hypoglycemia Standing Ord. Docusate Sodium (Docusate Sodium 100 Mg Capsule) 100 mg PO DAILY PRN PRN Reason: Constipation Gabapentin (Gabapentin 100 Mg Capsule) 200 mg PO BID [facility] Last Admin: 01/05/23 07:34 Dose: 200 mg Glucose (Glucose Gel 15 Gm Gel..Gram.) 15 gm PO Q15M PRN; Protocol PRN Reason: per Hypoglycemia Standing Ord. Guaifenesin (Guaifenesin La 600 Mg Tab.Er.12h) 1,200 mg PO BID [facility] Last Admin: 01/05/23 07:34 Dose: 1,200 mg Heparin Sodium (Porcine) (Heparin Sodium,Porcine 5,000 Unit/Ml Vial) 5,000 unit SUBCUT Q12H [facility] Last Admin: 01/05/23 11:40 Dose: 5,000 unit Ceftriaxone Sodium 1 gm/ (Sodium Chloride) 50 mls @ 100 mls/hr IV Q24H [facility] Last Infusion: 01/05/23 06:28 Dose: Infused Insulin Human Lispro (Insulin Lispro 100 Unit/Ml 3 Ml Vial) 0 unit SUBCUT QIDACHS [facility]; Protocol Last Admin: 01/05/23 16:15 Dose: Not Given Loratadine (Loratadine 10 Mg Tablet) 10 mg PO DAILY [facility] Last Admin: 01/05/23 07:35 Dose: 10 mg Metronidazole (Metronidazole 500 Mg Tablet) 500 mg PO Q12H [facility] Last Admin: 01/05/23 12:43 Dose: 500 mg Multivitamins/Vitamin C (Multivitamin Tablet) 1 tab PO BEDTIME [facility] Last Admin: 01/04/23 22:00 Dose: 1 tab Nitroglycerin (Nitroglycerin 0.4 Mg Tab.Subl) 0.4 mg SUBLINGUAL Q5M PRN PRN Reason: Chest Pain Nystatin (Nystatin Powder 15 Gm Bottle) 1 appl TOPICAL TID PRN; Protocol PRN Reason: Rash Ondansetron HCl (Ondansetron Hcl 4 Mg/2 Ml Vial) 4 mg IVPUSH Q8H PRN PRN Reason: Nausea and Vomiting Oxycodone HCl (Oxycodone Hcl Immed Release 5 Mg Tablet) 5 mg PO Q8H PRN PRN Reason: Breakthrough Pain, Moderate Last Admin: 01/02/23 19:50 Dose: 5 mg Prednisone (Prednisone 20 Mg Tablet) 40 mg PO DAILY [facility] Senna (Sennosides 8.6 Mg Tablet) 17.2 mg PO BID [facility] Last Admin: 01/05/23 07:34 Dose: 17.2 mg Sodium Chloride (0.9 % Sodium Chloride Flush 3 Ml Syringe) 3 ml IVFLUSH QSHIFT [facility] Last Admin: 01/05/23 07:37 Dose: 3 ml Topiramate (Topiramate 100 Mg Tablet) 100 mg PO BID [facility] Last Admin: 01/05/23 07:35 Dose: 100 mg Vitamin D (Cholecalciferol (Vitamin D3) 25 Mcg Tablet) 25 mcg PO BEDTIME [facility] Last Admin: 01/04/23 21:59 Dose: 25 mcg Zolpidem Tartrate (Zolpidem Tartrate 5 Mg Tablet) 5 mg PO BEDTIME [facility] Last Admin: 01/04/23 21:59 Dose: 5 mg Home Medications Medication Instructions Recorded Confirmed Last Taken Type multivitamin (Daily Multi-Vitamin 1 tab PO BEDTIME 12/25/20 01/01/23 09/09/21 History tablet) aspirin 81 mg chewable tablet 1 tab PO BEDTIME 09/11/21 01/01/23 11/13/21 History atorvastatin 80 mg tablet 80 mg PO BEDTIME 09/11/21 01/01/23 11/13/21 History nitroglycerin 0.4 mg sublingual 1 tab sublingual Q5M PRN Chest Pain 09/11/21 01/01/23 Unknown History tablet lancets 33 gauge (TRUEplus Lancets) #100 ea 11/20/21 12/25/22 Unknown History bupropion HCl 150 mg 24 hr tablet, 150 mg PO DAILY 09/10/22 01/01/23 Unknown History extended release metformin 750 mg tablet,extended 750 mg PO DAILY 09/10/22 01/01/23 Unknown History release 24 hr Oxygen Home Use 09/23/22 12/25/22 Unknown History [id number] 1 tab PO Q6H PRN Headache 12/31/22 01/01/23 Unknown History 50 mg-325 mg-40 mg tablet ipratropium 0.5 mg-albuterol 3 mg 3 ml inhalation QID PRN Shortness 12/31/22 01/01/23 Unknown History (2.5 mg base)/3 mL nebulization Of Breath soln nystatin 100,000 unit/gram topical 1 appl topical TID PRN Rash 12/31/22 01/01/23 Unknown History powder prednisone 5 mg tablet 5 mg PO BID 12/31/22 01/01/23 Unknown History zolpidem 10 mg tablet 10 mg PO BEDTIME 12/31/22 01/01/23 Unknown History Physical Exam Vital Signs: Vital Signs: Last Vital Signs Temp 97.5 F 01/05/23 16:00 Pulse 96 01/05/23 16:00 Resp 15 01/05/23 16:00 BP 128/58 L 01/05/23 16:00 Pulse Ox 96 01/05/23 16:00 O2 Del Method Room Air 01/05/23 16:00 O2 Flow Rate 2 01/03/23 07:10 BMI result Body Mass Index 25.5 Const: General: cooperative HEENT: Head: Yes normal to inspection Face and sinus: Yes normal facial exam Mouth: Normal oral and palatal mucosa present Teeth and gingiva: dent ition normal Eyes: General: appearance normal, both eyes and all related structures Pupils: Equal, round and reactive pupils present Resp: Effort & Inspection: normal respiratory effort Cardio: Rate: regular rate Rhythm: regular rhythm GI: Palpation (GI): Soft to palpation and nontender : General: Yes no CVA tenderness Back/Spine/Pelvis: Back: no CVA tenderness Skin: General skin exam: no rashes or lesions noted Neuro: General: moves all extremities Cranial nerves: Yes Equal, round and reactive pupils present Extrem: General: Yes normal to inspection Psych: Appearance: grossly normal Results Labs 01/01/23 06:21 08/24/23 06:21 Microbiology Microbiology Results: Microbiology 12/31/22 21:17 Blood - Venous Blood Culture - Final Bacteroides thetaiotaomicron 01/01/23 Unknown Urine clean catch - Urine [place] top Urine Culture - Final 12/31/22 21:17 Blood - Venous Blood Culture - Preliminary No growth after 48 hours. Assessment and Plan (1) Gram-negative bacteremia: Status: Acute There is concern over anerobic bacteremia possibly eroding into blood vessels or bowel/bladder fistula or SBP from bowel organism translocation. This is not a typical urinary infection organism or common contaminant. (2) COPD exacerbation: Status: Acute (3) Sepsis: Status: Acute Plan Coordinate evaluation of care with Oncology and Urology with malignancy possibly becoming quickly aggressive and causing bacteremia by any or more of above mechanisms. Continue Ceftriaxone IV 2g daily and Flagyl IV 500 mg bid for now,especially since has trouble tolerating oral medications,possible 14 days (if outpatient Flagyl can be given 1 g IV daily). Time Spent With Patient Time: Total time managing care of this patient today ____ minutes.
[2023-01-05] MEDS: oxyCODONE HCl Immed Release 5 MG TABLET PO (19:00)
[2023-01-05] MEDS: Zolpidem Tartrate 5 MG TABLET PO (19:01)
[2023-01-05] MEDS: Multivitamin TABLET 1 TAB PO (19:01)
[2023-01-05] MEDS: Cholecalciferol (Vitamin D3) 25 MCG TABLET PO (19:01)
[2023-01-05] MEDS: Aspirin 81 MG TAB.CHEW PO (19:01)
[2023-01-05 20:21] LABS: Glucose, Whole Blood 195 mg/dL (60-115)
[2023-01-06 04:00] VITALS: BP 97/48; PULSE 88; RESP 16; TEMP 36.1; O2SAT 93
[2023-01-06] MEDS: cefTRIAXone sodium 1 GM in 0.9 % Sodium Chloride 50 ML IV (05:42)
[2023-01-06 07:38] LABS: Glucose, Whole Blood 95 mg/dL (60-115)
[2023-01-06] MEDS: buPROPion HCl XL 150 MG TAB.ER.24H PO (07:49)
[2023-01-06] MEDS: Sennosides 8.6 MG TABLET 17.2 MG PO ×2 (07:49→20:20)
[2023-01-06] MEDS: Loratadine 10 MG TABLET PO (07:50)
[2023-01-06] MEDS: Gabapentin 100 MG CAPSULE 200 MG PO ×2 (07:50→20:20)
[2023-01-06] MEDS: 0.9 % Sodium Chloride Flush 3 ML SYRINGE IVFLUSH ×3 (07:50→20:22)
[2023-01-06] MEDS: guaiFENesin LA 600 MG TAB.ER.12H 1200 MG PO ×2 (07:50→20:21)
[2023-01-06] MEDS: predniSONE 20 MG TABLET 40 MG PO (07:50)
[2023-01-06] MEDS: Topiramate 100 MG TABLET PO ×2 (07:50→20:21)
[2023-01-06 07:56] VITALS: BP 138/63; PULSE 93; RESP 17; TEMP 36.2; O2SAT 95
--- NOTE | 2023-01-06 10:15 | P.CONGS_ITS ---
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 She was admitted for sepsis secondary to pneumonia, COPD exacerbation and UTI and treated with antibiotics. Blood cultures grew Bacteroides thetaiotaomicron and ID was consulted who was concerned for colovesical fistula as source of bacteremia. Surgery was therefore consulted. She denies any abdominal pain but reports some right sided discomfort. She denies pneumoturia, fecaluria, dysuria. Urine culture was negative. She has never had a colonoscopy. CT scan at admission showed enlarging intraperitoneal, retroperitoneal and pelvic masses. A poorly defined central pelvic mass extends from the left to the right pelvic sidewall with question of invasion of the dome of the bladder and the rectosigmoid. Patient states she had a total hysterectomy over 20 years ago. <Latanya Santiago PA-C Last Filed: 01/06/23 12:06> Review of Systems Constitutional: Constitutional: Denies chills and Denies fever(s) <HAILE Meléndez Last Filed: 01/06/23 12:06> Cardiovascular: Cardiovascular: Denies chest pain and Reports dyspnea <HAILE Meléndez Last Filed: 01/06/23 12:06> Respiratory: Respiratory: Reports dyspnea <HAILE Meléndez Last Filed: 01/06/23 12:06> Gastrointestinal: Gastrointestinal: Denies nausea and Denies vomiting <HAILE Meléndez Last Filed: 01/06/23 12:06> Genitourinary: Genitourinary: Reports as per HPI, Denies hematuria and Denies dysuria <Latanya Santiago PA-C - Last Filed: 01/06/23 12:06> Integumentary/Breasts: Skin/Breast: Denies rash and Denies jaundice <Latanya Santiago PA-C - Last Filed: 01/06/23 12:06> [facility] Past Medical History Medical History: Medical History Anxiety CAD (coronary artery disease) Cervical stenosis of spine COPD (chronic obstructive pulmonary disease) Depression Diabetic polyneuropathy associated with type 2 diabetes mellitus DM type 2 (diabetes mellitus, type 2) Elevated BUN History of smoking at least 1 pack per day for at least 30 years HTN (hypertension) Hyperlipidemia Left leg swelling Low vitamin D level Mass of peritoneum Migraine headache Neck pain Nonalcoholic steatohepatitis (CHRISTINE) Pulmonary nodule 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 Smoker Vertigo Vitamin B 12 deficiency Vitamin B12 deficiency <Latanya Santiago PA-C - Last Filed: 01/06/23 12:06> Family History Family History: Family History Mother CVD (cardiovascular disease) CVA (cerebral vascular accident) Father CVD (cardiovascular disease) Sister Breast cancer Family/Other Breast cancer <Latanya Santiago PA-C - Last Filed: 01/06/23 12:06> Family history: reviewed and not pertinent <Latanya Santiago PA-C - Last Filed: 01/06/23 12:06> Surgical History Surgical History: Surgical History Fusion of spine of cervical region History of carpal tunnel release History of heart artery stent History of hysterectomy <Latanya Santiago PA-C - Last Filed: 01/06/23 12:06> Social History Social History: Social History Household Members: Other Household Members Other:: house mate Housing: House Do you presently have visiting nurse or other home services: No Alcohol intake: never Patient Tobacco Use Status: Current everyday Tobacco user Tobacco use type: Cigarette Cigarette Packs Per Day: 0.5 Cigarettes Per Day: 6 Years Smoked: 63 Smoked in Last 30 Days: Yes e-Cigarette/Vaping Use: Never Used Patient Interested in Nicotine Replacement: Yes Patient Given Instructions on How to Stop Smoking: No (pt has information at home) Second Hand Smoke Exposure: No Use of substances other than those prescribed or required for medical reasons: No Currently Displaying Signs/Symptoms of Drug Intoxication Withdrawal: No Have you been hit, kicked, punched, or otherwise hurt by someone within the past year? If so, by whom?: No Do you feel safe in your current relationship?: No Current Relationship Is there a partner from a previous relationship who is making you feel unsafe now?: No Are you made to feel afraid or neglected: No Advance Directives: Yes Advance Directives on File: Yes Advance Directives Date on File: 11/14/21 Do you have thoughts of harming others: None Do you have a plan to hurt others: No Plan Recently lost weight without trying: Unsure Eating poorly because of decreased appetite: Yes Patient : No : No Poor oral hygiene: No service: No Current occupational status: retired Current occupation: Right Handed Cognitive needs: No Hearing needs: No Vision needs: Yes <Latanya Santiago PA-C - Last Filed: 01/06/23 12:06> Meds Allergies/Adverse reactions: Allergies Allergy/AdvReac Type Severity Reaction Status Date / Time amoxicillin [AMOXICILLIN] Allergy Mild DIARRHEA Verified 12/25/22 10:32 Darvocet A500 Allergy Unknown upset Verified 12/25/22 10:32 stomach melatonin Allergy Unknown Nausea and Verified 12/25/22 10:32 Vomiting oxycodone [From PERCOCET] Allergy Unknown NAUSEA,VOMI Verified 12/25/22 10:32 TING propoxyphene Allergy Unknown Stomach Verified 12/25/22 10:32 Upset influenza virus vaccine, AdvReac Intermediate NAUSEA,DIAR Verified 12/25/22 10:32 specific WU [FLU VACCINE] lactose [LACTOSE] AdvReac Intermediate GI UPSET Verified 12/25/22 10:32 metronidazole [From FLAGYL] AdvReac Intermediate NAUSEA & Verified 12/25/22 10:32 VOMITING Sulfa (Sulfonamide AdvReac Intermediate EYE DROPS Verified 12/25/22 10:32 Antibiotics) (ONLY)-IRITIS <HAILE Meléndez Last Filed: 01/06/23 12:06> Active Medications: Current Medications Acetaminophen (Acetaminophen 325 Mg Tablet) 650 mg PO Q6H PRN PRN Reason: Pain, Mild (Pain Scale 1-3) Albuterol/Ipratropium (Albuterol/Iprat 2.5/0.5mg 3 Ml Ampul.Neb) 3 ml INHALE RQ4H PRN PRN Reason: Shortness of Breath/Wheezing Last Admin: 01/05/23 19:49 Dose: 3 ml Albuterol/Ipratropium (Albuterol/Iprat 2.5/0.5mg 3 Ml Ampul.Neb) 3 ml INHALE RQ4H WHILE AWAKE [facility] Last Admin: 01/06/23 08:25 Dose: Not Given Aspirin (Aspirin 81 Mg Tab.Chew) 81 mg PO BEDTIME ALEXANDRE Last Admin: 01/05/23 19:01 Dose: 81 mg Bupropion HCl (Bupropion Hcl Xl 150 Mg Tab.Er.24h) 150 mg PO DAILY [facility] Last Admin: 01/06/23 07:49 Dose: 150 mg Calcium Carbonate (Calcium Carbonate 750 Mg Tab.Chew) 750 mg PO Q4H PRN PRN Reason: heartburn Last Admin: 01/04/23 22:00 Dose: 750 mg Dextrose (Dextrose 50 % 25 Gm/50 Ml Syringe) 25 gm IVPUSH Q15M PRN; Protocol PRN Reason: per Hypoglycemia Standing Ord. Docusate Sodium (Docusate Sodium 100 Mg Capsule) 100 mg PO DAILY PRN PRN Reason: Constipation Gabapentin (Gabapentin 100 Mg Capsule) 200 mg PO BID [facility] Last Admin: 01/06/23 07:50 Dose: 200 mg Glucose (Glucose Gel 15 Gm Gel..Gram.) 15 gm PO Q15M PRN; Protocol PRN Reason: per Hypoglycemia Standing Ord. Guaifenesin (Guaifenesin La 600 Mg Tab.Er.12h) 1,200 mg PO BID [facility] Last Admin: 01/06/23 07:50 Dose: 1,200 mg Heparin Sodium (Porcine) (Heparin Sodium,Porcine 5,000 Unit/Ml Vial) 5,000 unit SUBCUT Q12H [facility] Last Admin: 01/05/23 23:50 Dose: 5,000 unit Ceftriaxone Sodium 1 gm/ (Sodium Chloride) 50 mls @ 100 mls/hr IV Q24H [facility] Last Infusion: 01/06/23 06:22 Dose: Infused Insulin Human Lispro (Insulin Lispro 100 Unit/Ml 3 Ml Vial) 0 unit SUBCUT QIDACHS [facility]; Protocol Last Admin: 01/06/23 07:35 Dose: Not Given Loratadine (Loratadine 10 Mg Tablet) 10 mg PO DAILY [facility] Last Admin: 01/06/23 07:50 Dose: 10 mg Metronidazole (Metronidazole 500 Mg Tablet) 500 mg PO Q12H [facility] Last Admin: 01/05/23 23:50 Dose: 500 mg Multivitamins/Vitamin C (Multivitamin Tablet) 1 tab PO BEDTIME [facility] Last Admin: 01/05/23 19:01 Dose: 1 tab Nitroglycerin (Nitroglycerin 0.4 Mg Tab.Subl) 0.4 mg SUBLINGUAL Q5M PRN PRN Reason: Chest Pain Nystatin (Nystatin Powder 15 Gm Bottle) 1 appl TOPICAL TID PRN; Protocol PRN Reason: Rash Ondansetron HCl (Ondansetron Hcl 4 Mg/2 Ml Vial) 4 mg IVPUSH Q8H PRN PRN Reason: Nausea and Vomiting Prednisone (Prednisone 20 Mg Tablet) 40 mg PO DAILY [facility] Last Admin: 01/06/23 07:50 Dose: 40 mg Senna (Sennosides 8.6 Mg Tablet) 17.2 mg PO BID [facility] Last Admin: 01/06/23 07:49 Dose: 17.2 mg Sodium Chloride (0.9 % Sodium Chloride Flush 3 Ml Syringe) 3 ml IVFLUSH QSHIFT [facility] Last Admin: 01/06/23 07:50 Dose: 3 ml Topiramate (Topiramate 100 Mg Tablet) 100 mg PO BID [facility] Last Admin: 01/06/23 07:50 Dose: 100 mg Vitamin D (Cholecalciferol (Vitamin D3) 25 Mcg Tablet) 25 mcg PO BEDTIME [facility] Last Admin: 01/05/23 19:01 Dose: 25 mcg Zolpidem Tartrate (Zolpidem Tartrate 5 Mg Tablet) 5 mg PO BEDTIME [facility] Last Admin: 01/05/23 19:01 Dose: 5 mg <Latanya Santiago PA-C - Last Filed: 01/06/23 12:06> Home medications: Home Medications Medication Instructions Recorded Confirmed Last Taken Type multivitamin (Daily Multi-Vitamin 1 tab PO BEDTIME 12/25/20 01/01/23 09/09/21 History tablet) aspirin 81 mg chewable tablet 1 tab PO BEDTIME 09/11/21 01/01/23 11/13/21 History atorvastatin 80 mg tablet 80 mg PO BEDTIME 09/11/21 01/01/23 11/13/21 History nitroglycerin 0.4 mg sublingual 1 tab sublingual Q5M PRN Chest Pain 09/11/21 01/01/23 Unknown History tablet lancets 33 gauge (TRUEplus Lancets) #100 ea 11/20/21 12/25/22 Unknown History bupropion HCl 150 mg 24 hr tablet, 150 mg PO DAILY 09/10/22 01/01/23 Unknown History extended release metformin 750 mg tablet,extended 750 mg PO DAILY 09/10/22 01/01/23 Unknown History release 24 hr Oxygen Home Use 09/23/22 12/25/22 Unknown History cueozzmaty-[id number]-[id number] 1 tab PO Q6H PRN Headache 12/31/22 01/01/23 Unknown History 50 mg-325 mg-40 mg tablet ipratropium 0.5 mg-albuterol 3 mg 3 ml inhalation QID PRN Shortness 12/31/22 01/01/23 Unknown History (2.5 mg base)/3 mL nebulization Of Breath soln nystatin 100,000 unit/gram topical 1 appl topical TID PRN Rash 12/31/22 01/01/23 Unknown History powder prednisone 5 mg tablet 5 mg PO BID 12/31/22 01/01/23 Unknown History zolpidem 10 mg tablet 10 mg PO BEDTIME 12/31/22 01/01/23 Unknown History <Latanya Santiago PA-C - Last Filed: 01/06/23 12:06> Physical Exam Vital Signs: Vital Signs: Last Vital Signs Temp 97.1 F 01/06/23 07:56 Pulse 93 01/06/23 07:56 Resp 17 01/06/23 07:56 BP 138/63 01/06/23 07:56 Pulse Ox 95 01/06/23 07:56 O2 Del Method Room Air 01/06/23 07:56 O2 Flow Rate 2 01/03/23 07:10 BMI result Body Mass Index 25.5 <Latanya Santiago PA-C - Last Filed: 01/06/23 12:06> Const: General: comfortable, no acute distress and alert <Latanya Tapiadeau HAILE Koch Last Filed: 01/06/23 12:06> Orientation/consciousness: patient oriented x3 <Latanya Tapiadeau HAILE Koch Last Filed: 01/06/23 12:06> Resp: Effort & Inspection: normal respiratory effort <Latanya Santiago HAILE Koch Last Filed: 01/06/23 12:06> GI: Inspection: No distended and Yes obesity <Latanya Tapiadeau HAILE Koch Last Filed: 01/06/23 12:06> Palpation (GI): Soft to palpation, nontender, no guarding and not rigid <Latanya Tapiadeau HAILE Koch Last Filed: 01/06/23 12:06> Percussion: Yes normal to percussion <Latanya Tapiadeau HAILE Koch Last Filed: 01/06/23 12:06> Skin: General skin exam: no rashes or lesions noted <Latanya Tapiadeau HAILE Koch Last Filed: 01/06/23 12:06> Neuro: General: patient oriented x3 and moves all extremities <Latanya Tapiadeau HAILE Koch Last Filed: 01/06/23 12:06> Extrem: General: Yes no clubbing, cyanosis or edema <Latanya Tapiamigue HAILE Koch Last Filed: 01/06/23 12:06> Results Labs Result diagrams: 01/01/23 06:21 01/01/23 06:21 <Latanya Ledbetterzehra HAILE Koch Last Filed: 01/06/23 12:06> Labs: Abnormal lab results 01/05/23 01/05/23 01/05/23 Range/Units 11:18 16:14 20:15 POC Glucose 168 H 138 H 195 H (60-115) mg/dL Urine 01/01/23 01/01/23 Range/Units 02:37 16:33 Urine Color Yellow Yellow Urine Appearance Clear Clear Urine pH 6.0 6.0 (5.0-9.0) Ur Specific [place] 1.010 1.010 (1.005-1.025) Urine Protein 30 (1+) H 30 (1+) H (Neg-Trace) mg/dL Urine Glucose (UA) Negative Negative (Negative) mg/dL All other labs normal. <Latanya Santiago PA-C - Last Filed: 01/06/23 12:06> Imaging Abdomen CT scan report/results: report reviewed and image reviewed <Latanya Santiago PA-C - Last Filed: 01/06/23 12:06> Assessment and Plan (1) Gram-negative bacteremia: Status: Acute <Latanya Santiago PA-C - Last Filed: 01/06/23 12:06> Patient is known to ct Abdomen soft CT scan shows multiple metastatic tumors in the peritoneum No air in the bladder, no reported fecaluria,no pneumaturia Previous biopsy suggest urothelial versus ovarian in origin She has not started yet on chemotherapy Recommend consulting Dr. Waters of Oncology for follow-up Seen and examined in depending <Eben Griggs MD - Last Filed: 01/06/23 13:04> (2) Sepsis: Status: Acute <Latanya Santiago PA-C - Last Filed: 01/06/23 12:06> 72 year old female with advanced metastatic cancer who was admitted with sepsis, pneumonia, COPD exacberation, possible UTI. She has Bacteroides thetaiotaomicron bacteremia. ID was concerned for possible colovesical fistula and general surgery was therefore consulted. She has no symptoms that suggest colovesical fistula and her recent CT scan does not show any air the bladder. Urine culture was also negative. Her abdomen is benign. Clinically does not have colovesical fistula. She has advanced CA which is quickly progressing. She is supposed to start chemo in the next few weeks. No surgical intervention currently warranted. <Latanya Santiago PA-C - Last Filed: 01/06/23 12:06> Time Spent With Patient Time: Total time managing care of this patient today ____ minutes. <Latanya Santiago PA-C - Last Filed: 01/06/23 12:06> Procedures Date of Service Date of Service: 01/06/23 <Latanya Santiago PA-C - Last Filed: 01/06/23 12:06> 01/06/23 <Eben Griggs MD - Last Filed: 01/06/23 13:04>
[2023-01-06 11:47] LABS: Glucose, Whole Blood 149 mg/dL (60-115)
--- NOTE | 2023-01-06 11:59 | HO.PM.IMPN ---
Subjective Subjective Date of Service: 01/06/23 Interval History: f/u on gram neg bacteremia feels generally weak and tired Physical Exam Vital Signs: Vital Signs: Last Vital Signs Temp 97.1 F 01/06/23 07:56 Pulse 93 01/06/23 07:56 Resp 17 01/06/23 07:56 BP 138/63 01/06/23 07:56 Pulse Ox 95 01/06/23 07:56 O2 Del Method Room Air 01/06/23 07:56 O2 Flow Rate 2 01/03/23 07:10 BMI result Body Mass Index 25.5 Const: Other: General: AO X 3, no acute distress Resp: CTA bilateral CVS: S1,S2,RRR GI: +BS, NT, no distention Skin: No rash Neuro: motor grossly intact Psych: appropriate affect Objective Data Active Medications Acetaminophen (Acetaminophen 325 Mg Tablet) 650 mg PO Q6H PRN PRN Reason: Pain, Mild (Pain Scale 1-3) Albuterol/Ipratropium (Albuterol/Iprat 2.5/0.5mg 3 Ml Ampul.Neb) 3 ml INHALE RQ4H PRN PRN Reason: Shortness of Breath/Wheezing Last Admin: 01/05/23 19:49 Dose: 3 ml Documented By: PAOLA Albuterol/Ipratropium (Albuterol/Iprat 2.5/0.5mg 3 Ml Ampul.Neb) 3 ml INHALE RQ4H WHILE AWAKE [facility] Last Admin: 01/06/23 11:54 Dose: Not Given Documented By: ABIDA Non-Admin Reason: Patient Refused Aspirin (Aspirin 81 Mg Tab.Chew) 81 mg PO BEDTIME [facility] Last Admin: 01/05/23 19:01 Dose: 81 mg Documented By: TAURUS Bupropion HCl (Bupropion Hcl Xl 150 Mg Tab.Er.24h) 150 mg PO DAILY [facility] Last Admin: 01/06/23 07:49 Dose: 150 mg Documented By: DABAnna Calcium Carbonate (Calcium Carbonate 750 Mg Tab.Chew) 750 mg PO Q4H PRN PRN Reason: heartburn Last Admin: 01/04/23 22:00 Dose: 750 mg Documented By: ROOSEVELT Dextrose (Dextrose 50 % 25 Gm/50 Ml Syringe) 25 gm IVPUSH Q15M PRN; Protocol PRN Reason: per Hypoglycemia Standing Ord. Docusate Sodium (Docusate Sodium 100 Mg Capsule) 100 mg PO DAILY PRN PRN Reason: Constipation Gabapentin (Gabapentin 100 Mg Capsule) 200 mg PO BID [facility] Last Admin: 01/06/23 07:50 Dose: 200 mg Documented By: FACUNDO Glucose (Glucose Gel 15 Gm Gel..Gram.) 15 gm PO Q15M PRN; Protocol PRN Reason: per Hypoglycemia Standing Ord. Guaifenesin (Guaifenesin La 600 Mg Tab.Er.12h) 1,200 mg PO BID [facility] Last Admin: 01/06/23 07:50 Dose: 1,200 mg Documented By: FACUNDO Heparin Sodium (Porcine) (Heparin Sodium,Porcine 5,000 Unit/Ml Vial) 5,000 unit SUBCUT Q12H [facility] Last Admin: 01/05/23 23:50 Dose: 5,000 unit Documented By: ROOSEVELT Ceftriaxone Sodium 1 gm/ (Sodium Chloride) 50 mls @ 100 mls/hr IV Q24H [facility] Last Infusion: 01/06/23 06:22 Dose: 0 mls/hr Documented By: ROOSEVELT Insulin Human Lispro (Insulin Lispro 100 Unit/Ml 3 Ml Vial) 0 unit SUBCUT QIDACHS [facility]; Protocol Last Admin: 01/06/23 11:45 Dose: Not Given Documented By: FACUNDO Non-Admin Reason: No Insulin Coverage Loratadine (Loratadine 10 Mg Tablet) 10 mg PO DAILY [facility] Last Admin: 01/06/23 07:50 Dose: 10 mg Documented By: FACUNDO Metronidazole (Metronidazole 500 Mg Tablet) 500 mg PO Q12H [facility] Last Admin: 01/05/23 23:50 Dose: 500 mg Documented By: ROOSEVELT Multivitamins/Vitamin C (Multivitamin Tablet) 1 tab PO BEDTIME [facility] Last Admin: 01/05/23 19:01 Dose: 1 tab Documented By: TAURUS Nitroglycerin (Nitroglycerin 0.4 Mg Tab.Subl) 0.4 mg SUBLINGUAL Q5M PRN PRN Reason: Chest Pain Nystatin (Nystatin Powder 15 Gm Bottle) 1 appl TOPICAL TID PRN; Protocol PRN Reason: Rash Ondansetron HCl (Ondansetron Hcl 4 Mg/2 Ml Vial) 4 mg IVPUSH Q8H PRN PRN Reason: Nausea and Vomiting Prednisone (Prednisone 20 Mg Tablet) 40 mg PO DAILY [facility] Last Admin: 01/06/23 07:50 Dose: 40 mg Documented By: FACUNDO Senna (Sennosides 8.6 Mg Tablet) 17.2 mg PO BID [facility] Last Admin: 01/06/23 07:49 Dose: 17.2 mg Documented By: FACUNDO Sodium Chloride (0.9 % Sodium Chloride Flush 3 Ml Syringe) 3 ml IVFLUSH QSHIFT [facility] Last Admin: 01/06/23 07:50 Dose: 3 ml Documented By: FACUNDO Topiramate (Topiramate 100 Mg Tablet) 100 mg PO BID [facility] Last Admin: 01/06/23 07:50 Dose: 100 mg Documented By: FACUNDO Vitamin D (Cholecalciferol (Vitamin D3) 25 Mcg Tablet) 25 mcg PO BEDTIME [facility] Last Admin: 01/05/23 19:01 Dose: 25 mcg Documented By: TAURUS Zolpidem Tartrate (Zolpidem Tartrate 5 Mg Tablet) 5 mg PO BEDTIME [facility] Last Admin: 01/05/23 19:01 Dose: 5 mg Documented By: TAURUS Labs 01/01/23 06:21 01/01/23 06:21 Labs: Laboratory Results - last 24 hr 01/05/23 01/05/23 01/06/23 16:14 20:15 07:32 POC Glucose 138 H 195 H 95 01/06/23 11:43 POC Glucose 149 H Microbiology Microbiology Results: Microbiology 12/31/22 21:17 Blood Culture - Final Blood - Venous No growth after 5 days. Assessment and Plan (1) UTI (urinary tract infection): Status: Acute (2) COPD exacerbation: Status: Acute (3) Gram-negative bacteremia: Status: Acute Plan 72 year old female with advanced metastatic cancer who was admitted with sepsis, pneumonia, COPD exacberation, possible UTI. She has Bacteroides thetaiotaomicron bacteremia. ID was concerned for possible colovesical and for now recommends IV Ceftriaxone and Flagyl for possible 14 days. Evaluated by Gen Surgery and Urolog and there is no evidence of colovesicular fistual. CT no bladder air. At this point will continue IV Abx pending further guidance by ID ?COPD exacerbation , better, continue steroid, and bronchodilators diabetes--SSI ?migraine headaches -? continue? topiramate ?History of bladder cancer -? continue outpatient follow-up ?DVT prophylaxis: heparin raya need for inpt: bacteremia needing iv antibiotics Time Spent With Patient Time: Total time managing care of this patient today ____ minutes. Quality Stroke Does the patient have a stroke diagnosis?: No VTE Prior VTE?: No VTE Risk Level:: Medical - moderate - high VTE Device Contraindication: Treatment Not Indicated VTE Drug Contraindication: N/A - Med Ordered
[2023-01-06] MEDS: metroNIDAZOLE 500 MG TABLET PO ×2 (12:36→23:56)
[2023-01-06] MEDS: Heparin Sodium,Porcine 5,000 UNIT/ML VIAL 5000 UNIT SUBCUT ×2 (12:36→23:56)
[2023-01-06] MEDS: ALPRAZolam 0.25 MG TABLET 0.125 MG PO (15:25)
[2023-01-06 15:41] VITALS: BP 110/58; PULSE 91; RESP 20; TEMP 36.2; O2SAT 95
[2023-01-06 16:08] LABS: Glucose, Whole Blood 201 mg/dL (60-115)
[2023-01-06] MEDS: Insulin Lispro 100 UNIT/ML 3 ML VIAL SUBCUT ×2 (16:42→20:20)
[2023-01-06 19:40] VITALS: BP 119/59; PULSE 95; RESP 20; TEMP 36; O2SAT 93
[2023-01-06 20:13] LABS: Glucose, Whole Blood 160 mg/dL (60-115)
[2023-01-06] MEDS: Zolpidem Tartrate 5 MG TABLET PO (20:20)
[2023-01-06] MEDS: Multivitamin TABLET 1 TAB PO (20:20)
[2023-01-06] MEDS: Cholecalciferol (Vitamin D3) 25 MCG TABLET PO (20:20)
[2023-01-06] MEDS: Aspirin 81 MG TAB.CHEW PO (20:21)
[2023-01-07 03:42] VITALS: BP 102/51; PULSE 79; RESP 16; TEMP 36.3; O2SAT 95
[2023-01-07] MEDS: cefTRIAXone sodium 1 GM in 0.9 % Sodium Chloride 50 ML IV (05:58)
[2023-01-07 07:35] LABS: Glucose, Whole Blood 93 mg/dL (60-115)
[2023-01-07 08:03] VITALS: BP 110/51; PULSE 82; RESP 16; TEMP 36.1; O2SAT 93
[2023-01-07] MEDS: Sennosides 8.6 MG TABLET 17.2 MG PO ×2 (08:08→20:45)
[2023-01-07] MEDS: Gabapentin 100 MG CAPSULE 200 MG PO ×2 (08:08→20:45)
[2023-01-07] MEDS: guaiFENesin LA 600 MG TAB.ER.12H 1200 MG PO ×2 (08:08→20:45)
[2023-01-07] MEDS: predniSONE 20 MG TABLET 40 MG PO (08:09)
[2023-01-07] MEDS: Loratadine 10 MG TABLET PO (08:09)
[2023-01-07] MEDS: Topiramate 100 MG TABLET PO ×2 (08:09→20:45)
[2023-01-07] MEDS: buPROPion HCl XL 150 MG TAB.ER.24H PO (08:09)
[2023-01-07] MEDS: 0.9 % Sodium Chloride Flush 3 ML SYRINGE IVFLUSH ×3 (08:10→20:47)
--- NOTE | 2023-01-07 09:10 | HO.PM.IMPN ---
Subjective Subjective Date of Service: 01/07/23 Interval History: f/u on gram neg bacteremia feels a bit better today Physical Exam Vital Signs: Vital Signs: Last Vital Signs Temp 96.9 F 01/07/23 08:03 Pulse 82 01/07/23 08:03 Resp 16 01/07/23 08:03 BP 110/51 L 01/07/23 08:03 Pulse Ox 93 01/07/23 08:03 O2 Del Method Room Air 01/07/23 08:03 O2 Flow Rate 2 01/03/23 07:10 BMI result Body Mass Index 25.5 Const: Other: General: AO X 3, no acute distress Resp: CTA bilateral CVS: S1,S2,RRR GI: +BS, NT, no distention Skin: No rash Neuro: motor grossly intact Psych: appropriate affect Objective Data Active Medications Acetaminophen (Acetaminophen 325 Mg Tablet) 650 mg PO Q6H PRN PRN Reason: Pain, Mild (Pain Scale 1-3) Albuterol/Ipratropium (Albuterol/Iprat 2.5/0.5mg 3 Ml Ampul.Neb) 3 ml INHALE RQ4H PRN PRN Reason: Shortness of Breath/Wheezing Last Admin: 01/05/23 19:49 Dose: 3 ml Documented By: PAOLA Albuterol/Ipratropium (Albuterol/Iprat 2.5/0.5mg 3 Ml Ampul.Neb) 3 ml INHALE RQ4H WHILE AWAKE [facility] Last Admin: 01/07/23 08:08 Dose: Not Given Documented By: ZEB Non-Admin Reason: Patient Refused Alprazolam (Alprazolam 0.25 Mg Tablet) 0.125 mg PO TID PRN PRN Reason: Anxiety Last Admin: 01/06/23 15:25 Dose: 0.125 mg Documented By: FACUNDO Aspirin (Aspirin 81 Mg Tab.Chew) 81 mg PO BEDTIME [facility] Last Admin: 01/06/23 20:21 Dose: 81 mg Documented By: NAZ Bupropion HCl (Bupropion Hcl Xl 150 Mg Tab.Er.24h) 150 mg PO DAILY [facility] Last Admin: 01/07/23 08:09 Dose: 150 mg Documented By: FACUNDO Calcium Carbonate (Calcium Carbonate 750 Mg Tab.Chew) 750 mg PO Q4H PRN PRN Reason: heartburn Last Admin: 01/04/23 22:00 Dose: 750 mg Documented By: ROOSEVELT Dextrose (Dextrose 50 % 25 Gm/50 Ml Syringe) 25 gm IVPUSH Q15M PRN; Protocol PRN Reason: per Hypoglycemia Standing Ord. Docusate Sodium (Docusate Sodium 100 Mg Capsule) 100 mg PO DAILY PRN PRN Reason: Constipation Gabapentin (Gabapentin 100 Mg Capsule) 200 mg PO BID [facility] Last Admin: 01/07/23 08:08 Dose: 200 mg Documented By: FACUNDO Glucose (Glucose Gel 15 Gm Gel..Gram.) 15 gm PO Q15M PRN; Protocol PRN Reason: per Hypoglycemia Standing Ord. Guaifenesin (Guaifenesin La 600 Mg Tab.Er.12h) 1,200 mg PO BID [facility] Last Admin: 01/07/23 08:08 Dose: 1,200 mg Documented By: FACUNDO Heparin Sodium (Porcine) (Heparin Sodium,Porcine 5,000 Unit/Ml Vial) 5,000 unit SUBCUT Q12H [facility] Last Admin: 01/06/23 23:56 Dose: 5,000 unit Documented By: NAZ Ceftriaxone Sodium 1 gm/ (Sodium Chloride) 50 mls @ 100 mls/hr IV Q24H [facility] Last Infusion: 01/07/23 06:31 Dose: 0 mls/hr Documented By: NAZ Insulin Human Lispro (Insulin Lispro 100 Unit/Ml 3 Ml Vial) 0 unit SUBCUT QIDACHS [facility]; Protocol Last Admin: 01/07/23 08:08 Dose: Not Given Documented By: FACUNDO Non-Admin Reason: IV Running Loratadine (Loratadine 10 Mg Tablet) 10 mg PO DAILY [facility] Last Admin: 01/07/23 08:09 Dose: 10 mg Documented By: FACUNDO Metronidazole (Metronidazole 500 Mg Tablet) 500 mg PO Q12H [facility] Last Admin: 01/06/23 23:56 Dose: 500 mg Documented By: NAZ Multivitamins/Vitamin C (Multivitamin Tablet) 1 tab PO BEDTIME [facility] Last Admin: 01/06/23 20:20 Dose: 1 tab Documented By: NAZ Nitroglycerin (Nitroglycerin 0.4 Mg Tab.Subl) 0.4 mg SUBLINGUAL Q5M PRN PRN Reason: Chest Pain Nystatin (Nystatin Powder 15 Gm Bottle) 1 appl TOPICAL TID PRN; Protocol PRN Reason: Rash Ondansetron HCl (Ondansetron Hcl 4 Mg/2 Ml Vial) 4 mg IVPUSH Q8H PRN PRN Reason: Nausea and Vomiting Prednisone (Prednisone 20 Mg Tablet) 40 mg PO DAILY [facility] Last Admin: 01/07/23 08:09 Dose: 40 mg Documented By: FACUNDO Senna (Sennosides 8.6 Mg Tablet) 17.2 mg PO BID [facility] Last Admin: 01/07/23 08:08 Dose: 17.2 mg Documented By: FACUNDO Sodium Chloride (0.9 % Sodium Chloride Flush 3 Ml Syringe) 3 ml IVFLUSH QSHIFT [facility] Last Admin: 01/07/23 08:10 Dose: 3 ml Documented By: FACUNDO Topiramate (Topiramate 100 Mg Tablet) 100 mg PO BID [facility] Last Admin: 01/07/23 08:09 Dose: 100 mg Documented By: FACUNDO Vitamin D (Cholecalciferol (Vitamin D3) 25 Mcg Tablet) 25 mcg PO BEDTIME [facility] Last Admin: 01/06/23 20:20 Dose: 25 mcg Documented By: MARLENEQC Labs 01/01/23 06:21 01/01/23 06:21 Labs: Laboratory Results - last 24 hr 01/06/23 01/06/23 01/06/23 11:43 16:04 20:10 POC Glucose 149 H 201 H 160 H 01/07/23 07:31 POC Glucose 93 Assessment and Plan (1) UTI (urinary tract infection): Status: Acute (2) COPD exacerbation: Status: Acute (3) Gram-negative bacteremia: Status: Acute Plan 72 year old female with advanced metastatic cancer who was admitted with sepsis, pneumonia, COPD exacberation, possible UTI. She has Bacteroides thetaiotaomicron bacteremia. ID was concerned for possible colovesical and for now recommends IV Ceftriaxone and Flagyl for possible 14 days. Evaluated by Gen Surgery and Urolog and there is no evidence of colovesicular fistual. CT no bladder air. To complete 14 days of Ceftriaxone and Falgyl, Will request a midline today ?COPD exacerbation , better, continue steroid, and bronchodilators diabetes--SSI ?migraine headaches -? continue? topiramate ?History of bladder cancer -? continue outpatient follow-up with Dr. Waters ?DVT prophylaxis: heparin raya need for inpt: bacteremia needing iv antibiotics Time Spent With Patient Time: Total time managing care of this patient today ____ minutes. Quality Stroke Does the patient have a stroke diagnosis?: No VTE Prior VTE?: No VTE Risk Level:: Medical - moderate - high VTE Device Contraindication: Treatment Not Indicated VTE Drug Contraindication: N/A - Med Ordered
--- NOTE | 2023-01-07 09:37 | MHC.CM.PN ---
REFERRALS PLACED TO [facility] FOR 10 DAYS OF IV FLAGYL AWAITING LINE PLACEMENT. CM FOLLOWING
[2023-01-07 11:20] VITALS: PULSE 90; RESP 16; O2SAT 93
[2023-01-07] MEDS: Albuterol/Iprat 2.5/0.5MG 3 ML AMPUL.NEB INHALE ×2 (11:20→19:41)
[2023-01-07 11:39] LABS: Glucose, Whole Blood 151 mg/dL (60-115)
[2023-01-07] MEDS: Heparin Sodium,Porcine 5,000 UNIT/ML VIAL 5000 UNIT SUBCUT ×2 (12:03→23:47)
[2023-01-07] MEDS: metroNIDAZOLE 500 MG TABLET PO ×2 (12:03→23:46)
--- NOTE | 2023-01-07 14:36 | HO.MIDLINE_ITS ---
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 Using ultrasound guidance, basilic vein access was obtained #20g x 8cm non PASV midline was positioned. The procedure was performed in Rm 272. Ultrasound was used to document vein patency and for needle entry. A formal ultrasound picture was recorded. Vascul ar Tour Narrator has released the line for use and it is currently dressed with a StatLock, Tegaderm, and CHG disc. Verification has been performed for blood return and line patency. Arm Circumference: 23cm Equipment: power glide ST midline Catheter Type: 20g x 8cm non PASV Lot #: [id number]
--- NOTE | 2023-01-07 15:03 | PM.UROCN ---
History of Present Illness Consult details Consult date: 01/07/23 Narrative: 72-year-old female with extensive past medical history including high grade bladder cancer followed by Dr. Ponce and oncology Dr. Waters, COPD, CAD, diabetes, hypertension who initially presented with complaints of sudden onset shortness of breath on day of presentation.? She was admitted for sepsis secondary to pneumonia, COPD exacerbation and UTI and treated with antibiotics. Blood cultures grew Bacteroides thetaiotaomicron and ID was consulted who was concerned for colovesical fistula as source of bacteremia. Surgery and Urology consulted. The patient denies gross hematuria and discolored urine. CTAP- 12/30/22- kidneys WNL no hydro or calculi, bladder unremarkable, multiple intraperitoneal, retroperitoneal and pelvic masses have increased in size. Review of Systems Review of Systems: 10 point ROS negative other than stated in HPI [facility] Past Medical History Medical History Anxiety CAD (coronary artery disease) Cervical stenosis of spine COPD (chronic obstructive pulmonary disease) Depression Diabetic polyneuropathy associated with type 2 diabetes mellitus DM type 2 (diabetes mellitus, type 2) Elevated BUN History of smoking at least 1 pack per day for at least 30 years HTN (hypertension) Hyperlipidemia Left leg swelling Low vitamin D level Mass of peritoneum Migraine headache Neck pain Nonalcoholic steatohepatitis (CHRISTINE) Pulmonary nodule 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 Smoker Vertigo Vitamin B 12 deficiency Vitamin B12 deficiency Family History Family History Mother CVD (cardiovascular disease) CVA (cerebral vascular accident) Father CVD (cardiovascular disease) Sister Breast cancer Family/Other Breast cancer Family history: reviewed and not pertinent Surgical History Surgical History Fusion of spine of cervical region History of carpal tunnel release History of heart artery stent History of hysterectomy Social History Social History Household Members: Other Household Members Other:: house mate Housing: House Do you presently have visiting nurse or other home services: No Alcohol intake: never Patient Tobacco Use Status: Current everyday Tobacco user Tobacco use type: Cigarette Cigarette Packs Per Day: 0.5 Cigarettes Per Day: 6 Years Smoked: 63 e-Cigarette/Vaping Use: Never Used Second Hand Smoke Exposure: No Advance Directives Date on File: 11/14/21 service: No Current occupational status: retired Current occupation: Right Handed Cognitive needs: No Hearing needs: No Vision needs: Yes Meds Allergies Allergy/AdvReac Type Severity Reaction Status Date / Time amoxicillin [AMOXICILLIN] Allergy Mild DIARRHEA Verified 12/25/22 10:32 Darvocet A500 Allergy Unknown upset Verified 12/25/22 10:32 stomach melatonin Allergy Unknown Nausea and Verified 12/25/22 10:32 Vomiting oxycodone [From PERCOCET] Allergy Unknown NAUSEA,VOMI Verified 12/25/22 10:32 TING propoxyphene Allergy Unknown Stomach Verified 12/25/22 10:32 Upset influenza virus vaccine, AdvReac Intermediate NAUSEA,DIAR Verified 12/25/22 10:32 specific WU [FLU VACCINE] lactose [LACTOSE] AdvReac Intermediate GI UPSET Verified 12/25/22 10:32 metronidazole [From FLAGYL] AdvReac Intermediate NAUSEA & Verified 12/25/22 10:32 VOMITING Sulfa (Sulfonamide AdvReac Intermediate EYE DROPS Verified 12/25/22 10:32 Antibiotics) (ONLY)-IRITIS Active Medications: Current Medications Acetaminophen (Acetaminophen 325 Mg Tablet) 650 mg PO Q6H PRN PRN Reason: Pain, Mild (Pain Scale 1-3) Albuterol/Ipratropium (Albuterol/Iprat 2.5/0.5mg 3 Ml Ampul.Neb) 3 ml INHALE RQ4H PRN PRN Reason: Shortness of Breath/Wheezing Last Admin: 01/05/23 19:49 Dose: 3 ml Albuterol/Ipratropium (Albuterol/Iprat 2.5/0.5mg 3 Ml Ampul.Neb) 3 ml INHALE RQ4H WHILE AWAKE [facility] Last Admin: 01/07/23 11:20 Dose: 3 ml Alprazolam (Alprazolam 0.25 Mg Tablet) 0.125 mg PO TID PRN PRN Reason: Anxiety Last Admin: 01/06/23 15:25 Dose: 0.125 mg Aspirin (Aspirin 81 Mg Tab.Chew) 81 mg PO BEDTIME [facility] Last Admin: 01/06/23 20:21 Dose: 81 mg Bupropion HCl (Bupropion Hcl Xl 150 Mg Tab.Er.24h) 150 mg PO DAILY [facility] Last Admin: 01/07/23 08:09 Dose: 150 mg Calcium Carbonate (Calcium Carbonate 750 Mg Tab.Chew) 750 mg PO Q4H PRN PRN Reason: heartburn Last Admin: 01/04/23 22:00 Dose: 750 mg Dextrose (Dextrose 50 % 25 Gm/50 Ml Syringe) 25 gm IVPUSH Q15M PRN; Protocol PRN Reason: per Hypoglycemia Standing Ord. Docusate Sodium (Docusate Sodium 100 Mg Capsule) 100 mg PO DAILY PRN PRN Reason: Constipation Gabapentin (Gabapentin 100 Mg Capsule) 200 mg PO BID [facility] Last Admin: 01/07/23 08:08 Dose: 200 mg Glucose (Glucose Gel 15 Gm Gel..Gram.) 15 gm PO Q15M PRN; Protocol PRN Reason: per Hypoglycemia Standing Ord. Guaifenesin (Guaifenesin La 600 Mg Tab.Er.12h) 1,200 mg PO BID [facility] Last Admin: 01/07/23 08:08 Dose: 1,200 mg Heparin Sodium (Porcine) (Heparin Sodium,Porcine 5,000 Unit/Ml Vial) 5,000 unit SUBCUT Q12H [facility] Last Admin: 01/07/23 12:03 Dose: 5,000 unit Ceftriaxone Sodium 1 gm/ (Sodium Chloride) 50 mls @ 100 mls/hr IV Q24H [facility] Last Infusion: 01/07/23 06:31 Dose: Infused Insulin Human Lispro (Insulin Lispro 100 Unit/Ml 3 Ml Vial) 0 unit SUBCUT QIDACHS [facility]; Protocol Last Admin: 01/07/23 12:03 Dose: Not Given Loratadine (Loratadine 10 Mg Tablet) 10 mg PO DAILY [facility] Last Admin: 01/07/23 08:09 Dose: 10 mg Metronidazole (Metronidazole 500 Mg Tablet) 500 mg PO Q12H [facility] Last Admin: 01/07/23 12:03 Dose: 500 mg Multivitamins/Vitamin C (Multivitamin Tablet) 1 tab PO BEDTIME [facility] Last Admin: 01/06/23 20:20 Dose: 1 tab Nitroglycerin (Nitroglycerin 0.4 Mg Tab.Subl) 0.4 mg SUBLINGUAL Q5M PRN PRN Reason: Chest Pain Nystatin (Nystatin Powder 15 Gm Bottle) 1 appl TOPICAL TID PRN; Protocol PRN Reason: Rash Ondansetron HCl (Ondansetron Hcl 4 Mg/2 Ml Vial) 4 mg IVPUSH Q8H PRN PRN Reason: Nausea and Vomiting Prednisone (Prednisone 20 Mg Tablet) 40 mg PO DAILY [facility] Last Admin: 01/07/23 08:09 Dose: 40 mg Senna (Sennosides 8.6 Mg Tablet) 17.2 mg PO BID [facility] Last Admin: 01/07/23 08:08 Dose: 17.2 mg Sodium Chloride (0.9 % Sodium Chloride Flush 3 Ml Syringe) 3 ml IVFLUSH QSHIFT [facility] Last Admin: 01/07/23 08:10 Dose: 3 ml Topiramate (Topiramate 100 Mg Tablet) 100 mg PO BID [facility] Last Admin: 01/07/23 08:09 Dose: 100 mg Vitamin D (Cholecalciferol (Vitamin D3) 25 Mcg Tablet) 25 mcg PO BEDTIME [facility] Last Admin: 01/06/23 20:20 Dose: 25 mcg Home Medications Medication Instructions Recorded Confirmed Last Taken Type multivitamin (Daily Multi-Vitamin 1 tab PO BEDTIME 12/25/20 01/01/23 09/09/21 History tablet) aspirin 81 mg chewable tablet 1 tab PO BEDTIME 09/11/21 01/01/23 11/13/21 History atorvastatin 80 mg tablet 80 mg PO BEDTIME 09/11/21 01/01/23 11/13/21 History nitroglycerin 0.4 mg sublingual 1 tab sublingual Q5M PRN Chest Pain 09/11/21 01/01/23 Unknown History tablet lancets 33 gauge (TRUEplus Lancets) #100 ea 11/20/21 12/25/22 Unknown History bupropion HCl 150 mg 24 hr tablet, 150 mg PO DAILY 09/10/22 01/01/23 Unknown History extended release metformin 750 mg tablet,extended 750 mg PO DAILY 09/10/22 01/01/23 Unknown History release 24 hr Oxygen Home Use 09/23/22 12/25/22 Unknown History ckhftkaafh-hueltgqwzaqnm-kqtcruly 1 tab PO Q6H PRN Headache 12/31/22 01/01/23 Unknown History 50 mg-325 mg-40 mg tablet ipratropium 0.5 mg-albuterol 3 mg 3 ml inhalation QID PRN Shortness 12/31/22 01/01/23 Unknown History (2.5 mg base)/3 mL nebulization Of Breath soln nystatin 100,000 unit/gram topical 1 appl topical TID PRN Rash 12/31/22 01/01/23 Unknown History powder prednisone 5 mg tablet 5 mg PO BID 12/31/22 01/01/23 Unknown History zolpidem 10 mg tablet 10 mg PO BEDTIME 12/31/22 01/01/23 Unknown History Physical Exam Vital Signs: Vital Signs: Last Vital Signs Temp 96.9 F 01/07/23 08:03 Pulse 90 01/07/23 11:20 Resp 16 01/07/23 11:20 BP 110/51 L 01/07/23 08:03 Pulse Ox 93 01/07/23 08:03 O2 Del Method Room Air 01/07/23 08:03 O2 Flow Rate 2 01/03/23 07:10 BMI result Body Mass Index 25.5 Const: General: cooperative and no acute distress Orientation/consciousness: patient oriented x3 HEENT: Head: Yes normal to inspection, Yes normocephalic and Yes atraumatic Eyes: Conjunctivae: conjunctivae normal Neck: Neck: Yes normal visual inspection and Yes trachea midline Chest: Chest palpation & inspection: normal inspection of the chest Resp: Effort & Inspection: normal respiratory effort Cardio: Rate: regular rate GI: Inspection: Yes normal to inspection Palpation (GI): Soft to palpation Neuro: General: patient oriented x3 Psych: Appearance: grossly normal Results Labs 01/01/23 06:21 01/01/23 06:21 Labs: Abnormal lab results 01/06/23 01/06/23 01/07/23 Range/Units 16:04 20:10 11:36 POC Glucose 201 H 160 H 151 H (60-115) mg/dL Urine 01/01/23 01/01/23 Range/Units 02:37 16:33 Urine Color Yellow Yellow Urine Appearance Clear Clear Urine pH 6.0 6.0 (5.0-9.0) Ur Specific Viola 1.010 1.010 (1.005-1.025) Urine Protein 30 (1+) H 30 (1+) H (Neg-Trace) mg/dL Urine Glucose (UA) Negative Negative (Negative) mg/dL All other labs normal. Imaging Additional studies: Date of Service: 12/30/22 EXAMINATION: CT ABDOMEN AND PELVIS WITH CONTRAST? CLINICAL INFORMATION: Ovarian carcinoma.? COMPARISON: None available. TECHNIQUE: Multidetector volumetric images were obtained from the superior aspect of the liver through the pubic symphysis following administration 85 mL of Omnipaque 350 intravenous contrast. Sagittal and coronal reformatted images were obtained on the technologist's workstation.? Oral contrast: No This CT examination was performed using dose optimization techniques as appropriate, variously including the following: *Automated exposure control *Adjustment of mA and/or kV according to patient size (this includes techniques or standardized protocols for targeted exams where dose is matched to indication/reason for exam; i.e. extremities or head) *Use of iterative reconstruction technique DLP: 312.00 mGy-cm FINDINGS: LUNG BASES: The previously visualized lung base nodules are not included on this abdominal and pelvic CT. Scar at the left lung base is stable. Coronary artery calcifications are noted. There are multiple intraperitoneal metastases. In the left upper quadrant, a 11.4 x 7.9 x 7.2 cm mass measured 9.7 x 6.7 x 6.6 cm previously. As on the prior examination, there are hyperdense elements within this mass. A 5.2 x 4 cm mass in the right upper quadrant measured 4 x 3.7 cm previously. A round 14 mm mass in the right or quadrant just adjacent to the anterior tip of the liver measure 10 mm previously. A poorly defined central pelvic mass is difficult to precisely measure, as it extends from the left to the right pelvic sidewall, but adjacent to the left iliac vessels the mass measures 6.6 cm AP, previously 5.7 cm. This pelvic mass is inseparable from and likely invades the dome of the bladder and the rectosigmoid. A 4.2 x 3.1 cm right adnexal mass or perhaps a component of the larger pelvic mass measured 4.0 x 2.4 cm previously. A 34 x 25 mm soft tissue mass to the left of the celiac axis extending into the gastrohepatic ligament measure 27 x 22 mm previously. A 13 mm implant in the gastrohepatic ligament measuring 7 mm previously. There is no bowel, biliary or renal obstruction. LIVER, GALLBLADDER, AND BILIARY TREE: The liver is nodular in contour with enlargement of the left and caudate lobes indicative of underlying cirrhosis. No hepatic mass or biliary ductal dilatation is evident. The gallbladder is unremarkable with no evidence of radiopaque gallstones, gallbladder wall thickening, or obvious pericholecystic inflammatory changes. PANCREAS: A coarse pancreatic calcification is again evident. No discrete pancreatic mass or ductal dilatation is evident.? SPLEEN: Unremarkable. Previously seen splenic lesion is not visualized. ADRENAL GLANDS: Unremarkable.? KIDNEYS AND URETERS: The kidneys are normal in size, shape, and attenuation. No hydronephrosis, hydroureter, or calculi seen. No perinephric stranding. Several small bilateral low density renal lesions are too small to characterize but stable, the largest in the lower pole the right kidney measuring 12 mm.. There is no obstructive uropathy. Small low-density lesion extending exophytically from BLADDER: Unremarkable.? GASTROINTESTINAL TRACT: The small and large bowel are unremarkable. The appendix is unremarkable.? ABDOMINAL WALL: No significant hernia is appreciated.? LYMPH NODES: Normal. VASCULAR: Aortoiliac atherosclerotic changes are noted. PELVIC VISCERA: Unremarkable.? OSSEOUS STRUCTURES: Degenerative changes are present throughout the lumbar spine and lower dorsal spine. There are no suspicious bone lesions.? IMPRESSION: ? 1. Since 11/04/2022, multiple intraperitoneal, retroperitoneal and pelvic masses have increased in size compatible with disease progression. ? 2. No bowel, biliary or renal obstruction. ? 3. Nodular contour to the liver with enlargement of the left and caudate lobes consistent with cirrhosis. Assessment and Plan (1) UTI (urinary tract infection): Status: Acute (2) Gram-negative bacteremia: Status: Acute (3) Bladder cancer: Status: Acute Plan Clinical presentation and CT imaging not suggestive of fistula Cont sched out pat fu with Dr. Ponce The patient follows with Dr Waters, Oncology Time Spent With Patient Time: Total time managing care of this patient today ____ minutes. Procedures Date of Service Date of Service: 01/07/23
--- NOTE | 2023-01-07 15:12 | MHC.CM.PN ---
PATIENT AWARE OF 144.15 OUT OF POCKET COST FOR IV CEFTRIAXONE. [facility] TO DO TEACH TOMORROW WITH [id number] AND PATIENT. PATIENT WILL GET HER DOSE HERE TOMORROW, AND DC HOME WITH [facility] CARE ON Thursday01/09/23. PATIENT WILL DC HOME ON PO FLAGYL, SHE REPORTS TOLERATING IT WELL HERE. [facility] CARE Thursday01/09/23
[2023-01-07 15:44] VITALS: BP 106/54; PULSE 88; RESP 20; TEMP 36; O2SAT 95
[2023-01-07 16:13] LABS: Glucose, Whole Blood 254 mg/dL (60-115)
[2023-01-07] MEDS: Insulin Lispro 100 UNIT/ML 3 ML VIAL SUBCUT ×2 (16:22→20:46)
[2023-01-07 19:38] VITALS: BP 107/54; PULSE 92; RESP 20; TEMP 36; O2SAT 96
[2023-01-07 19:41] VITALS: PULSE 92; RESP 20; O2SAT 96
[2023-01-07 20:25] LABS: Glucose, Whole Blood 176 mg/dL (60-115)
[2023-01-07] MEDS: Multivitamin TABLET 1 TAB PO (20:45)
[2023-01-07] MEDS: Aspirin 81 MG TAB.CHEW PO (20:45)
[2023-01-07] MEDS: Cholecalciferol (Vitamin D3) 25 MCG TABLET PO (20:45)
[2023-01-07] MEDS: ALPRAZolam 0.25 MG TABLET 0.125 MG PO (20:48)
[2023-01-08 03:45] VITALS: BP 136/62; PULSE 79; RESP 16; TEMP 36.3; O2SAT 96
[2023-01-08] MEDS: cefTRIAXone sodium 1 GM in 0.9 % Sodium Chloride 50 ML IV (06:07)
[2023-01-08 07:09] VITALS: BP 105/49; PULSE 84; RESP 16; TEMP 36.1; O2SAT 96
[2023-01-08 07:18] LABS: Glucose, Whole Blood 94 mg/dL (60-115)
[2023-01-08] MEDS: buPROPion HCl XL 150 MG TAB.ER.24H PO (07:41)
[2023-01-08] MEDS: predniSONE 20 MG TABLET 40 MG PO (07:41)
[2023-01-08] MEDS: Gabapentin 100 MG CAPSULE 200 MG PO (07:41)
[2023-01-08] MEDS: Loratadine 10 MG TABLET PO (07:41)
[2023-01-08] MEDS: guaiFENesin LA 600 MG TAB.ER.12H 1200 MG PO (07:41)
[2023-01-08] MEDS: Sennosides 8.6 MG TABLET 17.2 MG PO (07:41)
[2023-01-08] MEDS: Topiramate 100 MG TABLET PO (07:42)
[2023-01-08] MEDS: 0.9 % Sodium Chloride Flush 3 ML SYRINGE IVFLUSH (07:42)
--- NOTE | 2023-01-08 10:40 | PM.DS ---
DS: Providers Provider Date of Service: 01/08/23 Date of admission: 01/01/23 00:44 Primary care physician: Linda Matthews MD Consults: 01/04/23 08:21 Consult to Infectious Diseases Routine Consulting Provider: [facility] [place] Infectious Disease Reason for consultation: Gram neg bacteremia 01/05/23 12:15 Consult to Urology Routine Consulting Provider: [facility] [place] Urology Services Reason for consultation: bladder cancer -uti/anerobic -r/o bladder/bowel fistula Has provider been notified: No 01/05/23 17:35 Consult to General Surgery Routine Consulting Provider: [facility] [place] General Surgeons Reason for consultation: ? colovesical fistula in setting of bladder cancer /bacteriods bacteremia Has provider been notified: No DS: Diagnosis Discharge Diagnosis (1) UTI (urinary tract infection): Status: Acute (2) Gram-negative bacteremia: Status: Acute (3) Bladder cancer: Status: Acute DS: Summary Hospital Course Hospital Course: Chief Complaint:? shortness of breath ?72-year-old female with past medical history of COPD, CAD, depression, diabetes, hypertension, migraine headaches, active smoker, comes into the hospital with complaints of sudden onset shortness of breath on day of presentation.? Minimal cough, no increased sputum production, no lower extremity edema, no fever or chills.? No abdominal pain nausea or vomiting, no diarrhea constipation, no urinary symptoms, no orthopnea or PND.? On arrival to the ED patient was noted to be febrile with a fever of 101.7, heart rate of 127, blood pressure 144/57 satting 94% on room air, Labs are significant for WBC count of 21.9, hemoglobin of 10.9, hematocrit 36.6 sodium 134, UA positive for leukocyte Estrace WBC, bacteria, BNP negative ?chest x-ray shows emphysematous changes, nodule involving the right lower lobe, blunting of the right costophrenic recess scarring versus? pleural effusion ?patient started on antibiotics will be admitted for further management Hospital course: 72 year old female with advanced metastatic bladder cancer who was admitted with sepsis, pneumonia, COPD exacberation, possible UTI. She has Bacteroides thetaiotaomicron bacteremia. ID was concerned for possible colovesical fistrula? and recommends IV Ceftriaxone and Flagyl for possible 14 days. She was evaluated by Surgery? and Urology and there is no evidence of? colovesicular fistual. CT show no bladder air. To complete 14 days of Ceftriaxone and Falgyl, midline is inserted for IV Ceftriaxone and will get PO Flagyl ?COPD exacerbation, treated with steroid and bronchodialtors diabetes--SSI ?migraine headaches -? continue? topiramate ?History of bladder cancer -? continue outpatient follow-up with Dr. Waters She will go home with visiting nurse services Time Spent with Patient Time attestation: Total time managing care of this patient today ____ minutes. Discharge coordination time: Greater than 30 minutes Quality: Safe Use of Opioids Does Pt have an Active Cancer Diagnosis on the Problem List?: No Quality: Stroke Does the patient have a stroke diagnosis?: No Physical Exam Vital Signs: Vital Signs: Last Vital Signs Temp 96.9 F 01/08/23 07:09 Pulse 84 01/08/23 07:09 Resp 16 01/08/23 07:09 BP 105/49 L 01/08/23 07:09 Pulse Ox 96 01/08/23 07:09 O2 Del Method Room Air 01/08/23 07:09 O2 Flow Rate 2 01/03/23 07:10 BMI result Body Mass Index 25.5 Const: Other: General: AO X 3, no acute distress Resp: CTA bilateral CVS: S1,S2,RRR GI: +BS, NT, no distention Skin: No rash Neuro: motor grossly intact Psych: appropriate affect DS: Data Data Completed and Pending Completed studies during hospitalization [Text1]: Procedures Assistance with Respiratory Ventilation, Less than 24 Consecutive Hours, Continuous Positive Airway Pressure (01/06/22) Labs on day of discharge: Laboratory Results - last 24 hr 01/07/23 01/07/23 01/07/23 11:36 16:08 20:18 POC Glucose 151 H 254 H 176 H 01/08/23 07:14 POC Glucose 94 Discharge Plan Discharge Anticipated Discharge Date/Time: 01/08/23 09:50 Patient Disposition: Home Health Service Discharge Diagnosis: Gram negative anant bacteremia Referrals: [facility] [Other] [facility] [Outside] - 1 Day Linda Matthews MD [Primary Care Provider] - 1 Week Discharge Medications: New metronidazole 500 mg Tablet 500 mg PO Q12H Qty: 20 0RF ceftriaxone 1 gram Recon Soln 1 g IV Q24H Qty: 10 0RF Continued topiramate 100 mg tablet 100 mg PO BID Qty: 180 3RF (DME) lancets [FreeStyle Lancets] 28 gauge misc See Rx Instructions .Route Qty: 100 3RF Rx Instructions: test blood sugar once a day lisinopril 2.5 mg tablet 2.5 mg PO BEDTIME Qty: 90 3RF cyanocobalamin (vitamin B-12) 1,000 mcg tablet 2,000 mcg PO BEDTIME Qty: 180 3RF gabapentin 100 mg capsule 200 mg PO BID Qty: 360 3RF Trelegy Ellipta 100-62.5-25 mcg blister with device 1 inh inhalation DAILY Qty: 180 3RF cholecalciferol (vitamin D3) 25 mcg (1,000 unit) tablet 25 mcg PO BEDTIME Qty: 90 3RF albuterol sulfate 90 mcg/actuation HFA aerosol inhaler 2 puff PO Q4-6H PRN (Reason: for wheezing) Qty: 8.5 3RF (DME) FreeStyle Lite Strips Strip See Rx Instructions .Route Qty: 100 3RF Rx Instructions: test once a day loratadine [Claritin] 10 mg tablet 10 mg PO DAILY Qty: 90 0RF (DME) FreeStyle Karin 14 Day [place] Misc See Rx Instructions .Route Qty: 1 4RF Rx Instructions: As directed nitroglycerin 0.4 mg tablet, sublingual 1 tab sublingual Q5M PRN (Reason: Chest Pain) atorvastatin 80 mg tablet 80 mg PO BEDTIME aspirin 81 mg tablet,chewable 1 tab PO BEDTIME Senokot Extra Strength 17.2 mg Tablet 17.2 mg PO BID Qty: 60 5RF oxycodone 5 mg Tablet 5 mg PO Q8H PRN (Reason: Breakthrough Pain, Moderate) Qty: 40 0RF Rx Instructions: Partial Fill upon patient request. bupropion HCl 150 mg Tablet Extended Release 24 Hr 150 mg PO DAILY metformin 750 mg Tablet Extended Release 24 Hr 750 mg PO DAILY prednisone 5 mg tablet 5 mg PO BID uzcerodfqa-fpvwjluqpmrsk-kiwz 50-325-40 mg tablet 1 tab PO Q6H PRN (Reason: Headache) nystatin 100,000 unit/gram powder 1 appl topical TID PRN (Reason: Rash) zolpidem 10 mg tablet 10 mg PO BEDTIME ipratropium-albuterol 0.5 mg-3 mg(2.5 mg base)/3 mL solution for nebulization 3 ml inhalation QID PRN (Reason: Shortness Of Breath) (DME) lancets [TRUEplus Lancets] 33 gauge misc See Rx Instructions .ROUTE DAILY Qty: 100 Rx Instructions: As directed (DME) Oxygen Home Use Kit See Rx Instructions .Route Rx Instructions: As directed multivitamin [Daily Multi-Vitamin] Tablet 1 tab PO BEDTIME Mucinex 1,200 mg tablet extended release 12hr 1,200 mg PO BID 30 Days Qty: 60 4RF Discharge Orders: Discharge Order (Routine); Ordered 01/08/23 Ordered By: Suraj Mcclelland Diet: Advance to usual diet Activity on Discharge: As tolerated Stand Alone Forms: Patient Portal Discharge page Care Plan Goals: recovery from bacteremia and treatement of bladder cancer Health Concerns: bladder cancer gram negative bacteremia Plan of Treatment: Take Flagyl orally and Ceftriaxone IV as directed and follow up with your Doctor diann week Assessment: as above
--- NOTE | 2023-01-08 11:25 | MHC.CM.PN ---
Addendum entered by Ellie Torres 01/08/23 13:36: [facility] [id number] CURRENTLY AT BEDSIDE FOR TEACH PT WILL DC HOME TODAY WITH [facility] FOR IV MEDS/SUPPLIES AND [facility] FOR JAIL PTS [id number] WILL TRANSPORT [facility] NOTIFIED VIA [employer] Addendum entered by Ellie Torres 01/08/23 11:49: CM RECEIVED A CALL FROM PTS DAUGHTER IN LAW, BRODY WHO STATED SHE WAS NOT YET ON HER WAY SHE SAID SHE IS UNSURE WHY THE PT THOUGHT THAT SHE HAS NOT YET SPOKEN TO HER TODAY SHE IS AWARE THE [facility] RN IS CLOSE [place] [facility] [place] ARRIVE IN APPROX 10 MINUTES RADHA SAYS SHE IS IN [place] SO WILL TRY TO BE HERE WITH IN THE HOUR SHE ALSO REPORTS SHE WILL BE PROVIDING THE PTS TRANSPORTATION HOME AND ALTHOUGH SHE IS SUPPOSED TO WORK AT 1500 HOURS, SHE CAN CALL OUT IF NEEDED. Original Note: PLAN IS FOR PT TO DC HOME TODAY WITH [facility] AND [facility] SERVICES SHE WILL NEED IV CEFTRIAXONE AND PO FLAGYL PT IS AWARE THE [facility] RN IS EN ROUTE FOR TEACH SHE REPORTS HER DAUGHTER IN LAW IS ALSO COMING IN FOR TEACH SHE IS UNSURE WHAT TIME SHE IS COMING [facility] RN WILL ALERT CM WHEN SHE IS CLOSE TO [facility] CM WILL CALL PTS DAUGHTER IN LAW AT THAT TIME IF SHE IS NOT YET PRESENT
[2023-01-08 11:35] LABS: Glucose, Whole Blood 207 mg/dL (60-115)
[2023-01-08] MEDS: metroNIDAZOLE 500 MG TABLET PO (11:40)
[2023-01-08] MEDS: Insulin Lispro 100 UNIT/ML 3 ML VIAL SUBCUT (11:40)
== END 2023-01-08 13:37 | disposition home health service (06) | DRG 871 ==
LOC: HO.ED 23:01 → HO.EDOVER 01-01 00:52 → HO.S3 01-01 07:36
PROVIDERS: Internal Medicine; Admitting Provider Internal Medicine; Emergency Provider Emergency Medicine; PCP Internal Medicine; Visit Provider Internal Medicine
PROC: 05HB33Z Insertion of Infusion Device into Right Basilic Vein, Percutaneous Approach (ICD-10-PCS; principal; 2023-01-07 11:30)
DX: A41.50 Gram-negative sepsis, unspecified (principal); J18.9 Pneumonia, unspecified organism; N39.0 Urinary tract infection, site not specified; I25.10 Atherosclerotic heart disease of native coronary artery without angina pectoris; F17.210 Nicotine dependence, cigarettes, uncomplicated; Z71.6 Tobacco abuse counseling; E11.42 Type 2 diabetes mellitus with diabetic polyneuropathy; G43.909 Migraine, unspecified, not intractable, without status migrainosus; J43.9 Emphysema, unspecified; C67.9 Malignant neoplasm of bladder, unspecified; I10 Essential (primary) hypertension; Z20.822 Contact with and (suspected) exposure to COVID-19; Z98.1 Arthrodesis status; Z79.51 Long term (current) use of inhaled steroids; Z79.52 Long term (current) use of systemic steroids; Z79.82 Long term (current) use of aspirin; Z79.84 Long term (current) use of oral hypoglycemic drugs; Z79.899 Other long term (current) drug therapy
CPT/HCPCS: 36410; 36415; 71045; 71250; 74177; 80048; 80053; 80076; 81001; 82947; 83605; 83880; 85025; 85610; 85730; 87040; 87076; 87086; 87205; 87502; 87635; 93005; 94640; 97162; 99285; C1751; J0456; J0696; J1643; J2920; J2930; Q9967

== ENCOUNTER → 2023-01-01 00:44 | Outpatient (BNV) | payer MEDICARE, MEDICAID, SELFPAY | PROVIDERS: Admitting Provider Internal Medicine; Emergency Provider Emergency Medicine; PCP Internal Medicine; Visit Provider Physician Assistant Surgical | DX: A41.9 Sepsis, unspecified organism (principal) | CPT/HCPCS: 99222 ==

== ENCOUNTER → 2023-01-01 00:44 | Outpatient (BNV) | payer MEDICARE, MEDICAID, SELFPAY | PROVIDERS: Admitting Provider Internal Medicine; Emergency Provider Emergency Medicine; PCP Internal Medicine; Visit Provider Urology | DX: N39.0 Urinary tract infection, site not specified (principal); R78.81 Bacteremia; C67.9 Malignant neoplasm of bladder, unspecified | CPT/HCPCS: 99222 ==

== ENCOUNTER → 2023-01-01 00:44 | Outpatient (BNV) | payer MEDICARE, MEDICAID, SELFPAY | PROVIDERS: Admitting Provider Internal Medicine; Emergency Provider Emergency Medicine; PCP Internal Medicine; Visit Provider Internal Medicine | DX: C67.9 Malignant neoplasm of bladder, unspecified (principal); N39.0 Urinary tract infection, site not specified; R78.81 Bacteremia | CPT/HCPCS: 99223; 99231; 99232; 99239; 99499 ==

== ENCOUNTER → 2023-01-01 00:44 | Outpatient (BNV) | payer MEDICARE, MEDICAID, SELFPAY | PROVIDERS: Admitting Provider Internal Medicine; Emergency Provider Emergency Medicine; PCP Internal Medicine; Visit Provider Internal Medicine | DX: R78.81 Bacteremia (principal); J44.1 Chronic obstructive pulmonary disease with (acute) exacerbation; A41.9 Sepsis, unspecified organism | CPT/HCPCS: 99222 ==

== ENCOUNTER 2023-01-14 13:22 | Outpatient (REF) | payer MEDICARE, OTHER, SELFPAY ==
[2023-01-14 13:25] LABS: MANUAL DIFF FLAG NO
[2023-01-14 13:33] LABS: Basophils Absolute Auto 0.1 X10*3/uL (0.0-0.2); Basophils Percent Auto 0.3 % (0-2); Eosinophils Percent Auto 0.1 % (0-4); Hematocrit 34.9 % (37.0-47.0); Hemoglobin 10.3 g/dl (12.0-16.0); Imm Gran Abs Auto 0.19 X10*3/uL (0.00-0.03); Lymphocytes Absolute Auto 1.6 X10*3/uL (1.2-4.9); Lymphocytes Percent Auto 8.8 % (20-40); Mean Corpuscular HGB Conc 29.5 g/dl (31.0-35.0); Mean Corpuscular Volume 77.9 fL (80.0-98.0); Mean Platelet Volume 11.3 fL (9.4-12.3); Monocytes Absolute Auto 1.1 X10*3/uL (0.1-1.2); Monocytes Percent Auto 6.1 % (2-11); Neutrophils Absolute Auto 15.3 x10*3/uL (2.0-8.3); Neutrophils Percent Auto 83.7 % (45-73); Platelet Count 311 X10*3/uL (160-400); Red Blood Count 4.48 X10*6/uL (4.20-5.50); Red Cell Distribution Width 17.9 % (11.0-16.0); White Blood Count 18.3 X10*3/uL (4.8-10.8)
[2023-01-14 14:10] LABS: Blood Urea Nitrogen 29 mg/dL (9-16); Estimated Glomerular Filt Rate 51
== END 2023-01-14 13:23 | disposition home or self-care (01) ==
LOC: HO.HVNA 13:22
PROVIDERS: Visit Provider Internal Medicine
DX: R78.81 Bacteremia (principal)
CPT/HCPCS: 36415; 82565; 84520; 85025

== ENCOUNTER 2023-01-27 12:02 | Outpatient (REF) | payer MEDICARE, OTHER, SELFPAY ==
[2023-01-27 13:23] LABS: MANUAL DIFF FLAG NO
[2023-01-27 13:58] LABS: Basophils Absolute Auto 0.1 X10*3/uL (0.0-0.2); Basophils Percent Auto 0.6 % (0-2); Eosinophils Absolute Auto 0.2 X10*3/uL (0.0-0.4); Eosinophils Percent Auto 1.5 % (0-4); Hematocrit 38.8 % (37.0-47.0); Hemoglobin 11.3 g/dl (12.0-16.0); Imm Gran Abs Auto 0.12 X10*3/uL (0.00-0.03); Imm Gran Pct Auto 0.8 % (0.0-0.4); Lymphocytes Absolute Auto 1.9 X10*3/uL (1.2-4.9); Lymphocytes Percent Auto 13.3 % (20-40); Mean Corpuscular HGB Conc 29.1 g/dl (31.0-35.0); Mean Corpuscular Hemoglobin 23.2 pg (27.0-33.0); Mean Corpuscular Volume 79.5 fL (80.0-98.0); Mean Platelet Volume 12.3 fL (9.4-12.3); Monocytes Absolute Auto 1.1 X10*3/uL (0.1-1.2); Monocytes Percent Auto 7.8 % (2-11); Platelet Count 364 X10*3/uL (160-400); Red Blood Count 4.88 X10*6/uL (4.20-5.50); Red Cell Distribution Width 19.5 % (11.0-16.0); White Blood Count 14.4 X10*3/uL (4.8-10.8)
[2023-01-27 14:11] LABS: Alanine Aminotransferase 22 U/L (0-31); Alkaline Phosphatase 98 U/L (39-117); Anion Gap 13 (12-20); Aspartate Amino Transferase 30 U/L (5-31); Bilirubin Total 0.4 mg/dL (0.0-1.0); Blood Urea Nitrogen 50 mg/dL (9-16); Calcium 9.9 mg/dL (8.4-10.2); Carbon Dioxide 21 mmol/L (22-29); Chloride 112 mmol/L (96-108); Estimated Glomerular Filt Rate 51; Glucose Random 141 mg/dL (60-115); Potassium 3.8 mmol/L (3.3-5.1); Sodium 142 mmol/L (135-145); Total Protein 7.8 g/dL (6.5-8.0)
== END 2023-01-27 12:03 | disposition home or self-care (01) ==
LOC: HO.HMGCLDS 12:02
PROVIDERS: PCP Internal Medicine; Visit Provider Internal Medicine Medical Oncology
DX: C76.3 Malignant neoplasm of pelvis (principal)
CPT/HCPCS: 36415; 80053; 85025

== ENCOUNTER 2023-02-06 14:53 | Outpatient (REF) | payer MEDICARE, OTHER, SELFPAY ==
[2023-02-06 16:18] LABS: Estimated Glomerular Filt Rate > 60
[2023-02-06 17:19] LABS: Creatinine, mg/dL 77.73
[2023-02-06 17:46] LABS: Creatinine, 24Hr Urine 0.7 G/Day (1.0-2.0); Protein 24 Hr Urine 1913 mg/Day (<150); Protein mg/dL 225 mg/dL; Total Volume 24 Hour Urine 850 mL
[2023-02-06 17:47] LABS: Creatinine (CrCl) 0.83 mg/dL (0.5-1.4); Creatinine Clearance 55.2 mL/min (85-125)
== END 2023-02-06 14:54 | disposition home or self-care (01) ==
LOC: HO.LAB 14:53
PROVIDERS: PCP Internal Medicine; Visit Provider Internal Medicine Medical Oncology
DX: R80.9 Proteinuria, unspecified (principal)
CPT/HCPCS: 36415; 82565; 82575; 84156

== ENCOUNTER 2023-02-11 10:59 | Outpatient (AMB) | payer MEDICARE, SELFPAY ==
[2023-02-11 11:02] VITALS: BP 94/50; PULSE 111; O2SAT 96; BMI 23.0
--- NOTE | 2023-02-11 11:02 | A.OFFPC_ITS ---
Vital Signs 02/11/23 11:02 Height 5 ft 1 in Weight 122 lb BMI 23.0 BP 94/50 L Blood Pressure Location Rt brachial Position Sitting Pulse 111 H Pulse Source Pulse Oximeter Pulse Oximetry (%) 96 Oxygen Delivery Method Room Air Intake Visit Reasons: 2 month f/u Intake Note: Pt is here today for 2 months follow up visit. Allergies amoxicillin [AMOXICILLIN] Allergy (Mild, Verified 02/11/23 11:05) DIARRHEA Darvocet A500 Allergy (Unknown, Verified 02/11/23 11:05) upset stomach melatonin Allergy (Unknown, Verified 02/11/23 11:05) Nausea and Vomiting oxycodone [From PERCOCET] Allergy (Unknown, Verified 02/11/23 11:05) NAUSEA,VOMITING propoxyphene Allergy (Unknown, Verified 02/11/23 11:05) Stomach Upset influenza virus vaccine, specific [FLU VACCINE] Adverse Reaction (Intermediate, Verified 02/11/23 11:05) NAUSEA,DIARRHEA lactose [LACTOSE] Adverse Reaction (Intermediate, Verified 02/11/23 11:05) GI UPSET metronidazole [From FLAGYL] Adverse Reaction (Intermediate, Verified 02/11/23 11:05) NAUSEA & VOMITING Sulfa (Sulfonamide Antibiotics) Adverse Reaction (Intermediate, Verified 02/11/23 11:05) EYE DROPS (ONLY)-IRITIS Medication List - Last Reconciled 02/11/23 by Linda Matthews MD albuterol sulfate 90 mcg/actuation 2 puffs PO Q4-6H PRN aspirin 1 tab PO BEDTIME atorvastatin 80 mg PO BEDTIME blood sugar diagnostic (FreeStyle Lite Strips) test once a day bupropion HCl 150 mg PO DAILY azbdupzmew-weiqcgudrchvy-kkct 50-325-40 mg 1 tab PO Q6H PRN cholecalciferol (vitamin D3) 25 mcg PO BEDTIME cyanocobalamin (vitamin B-12) 2,000 mcg (2 x 1,000 mcg) PO BEDTIME dexamethasone 4 mg PO BID dronabinol 2.5 mg PO BID flash glucose scanning reader ([employer] Karin 14 Day Byers) As directed knyzwbbovmj-axkvvinbw-jysivuwz 100-62.5-25 mcg (Trelegy Ellipta) 1 inh inhalation DAILY gabapentin 200 mg (2 x 100 mg) PO BID guaifenesin ER (Mucinex) 1,200 mg PO BID 30 days ipratropium-albuterol 0.5 mg-3 mg(2.5 mg base)/3 mL 3 mL inhalation QID PRN lancets (FreeStyle Lancets) test blood sugar once a day lancets (TRUEplus Lancets) As directed loratadine (Claritin) 10 mg PO DAILY megestrol 400 mg (10 mL) PO DAILY metformin ER 750 mg PO DAILY multivitamin (Daily Multi-Vitamin tablet) 1 tab PO BEDTIME nitroglycerin 1 tab sublingual Q5M PRN nystatin 1 appl topical TID PRN ondansetron 8 mg PO Q8H Oxygen Home Use As directed sennosides (Senokot Extra Strength) 17.2 mg PO BID topiramate 100 mg PO BID zolpidem 10 mg PO BEDTIME Tobacco use date assessed: 02/11/23 HPI 2 month f/u HPI Details Patient presents for the follow-up. She started chemotherapy for metastatic pelvic CA and complains of feeling tired and weak with decreased appetite and some weight loss. Patient was hospitalized for Gram-negative bacteremia and completed course of 2 week intravenous antibiotics. Patient had 1 episode of gross hematuria 3 days ago but denies dysuria fever chills back pain. Patient follows up with Urology and Oncology. She reports low blood glucose readings in the morning a below 50s and has been taking metformin 750 mg qd. COPD is stable on Trelegy and supplemental O2 p.r.n. patient smokes only 1 cigarette a day. 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 Mass of peritoneum History of smoking at least 1 pack per day for at least 30 years DM type 2 (diabetes mellitus, type 2) Left leg swelling Neck pain Vitamin B 12 deficiency Elevated BUN Bladder cancer Vertigo Nonalcoholic steatohepatitis (CHRISTINE) Hyperlipidemia Diabetic polyneuropathy associated with type 2 diabetes mellitus COPD (chronic obstructive pulmonary disease) Pulmonary nodule Smoker Low vitamin D level Vitamin B12 deficiency Cervical stenosis of spine Anxiety Depression Migraine headache HTN (hypertension) CAD (coronary artery disease) Surgical History History of heart artery stent History of carpal tunnel release Fusion of spine of cervical region History of hysterectomy Family History Mother CVD (cardiovascular disease) CVA (cerebral vascular accident) Father CVD (cardiovascular disease) Sister Breast cancer Family/Other Breast cancer Social History Household Members: Other Household Members Other:: house mate Housing: House Do you presently have visiting nurse or other home services: No Alcohol intake: never Patient Tobacco Use Status: Current everyday Tobacco user Tobacco use type: Cigarette Cigarette Packs Per Day: 0.5 Cigarettes Per Day: 1 Years Smoked: 63 e-Cigarette/Vaping Use: Never Used Second Hand Smoke Exposure: No Advance Directives Date on File: 11/14/21 service: No Current occupational status: retired Current occupation: Right Handed Cognitive needs: No Hearing needs: No Vision needs: Yes Questionnaire Thrive Questionnaire Date Thrive assessed: 01/01/23 CRISTINO-7 AMB Questionnaire CRISTINO-7 Date CRISTINO - 7 assessed: 08/22/22 Source: Developed by Drs. Alexandre Lozano, Inocencia Stone, Jonathon Sagastume and colleagues, with an educational nolvia from [employer] Review of Systems Const All systems reviewed & are unremarkable except as noted in HPI and below Reports no additional complaints Eyes Reports no additional complaints ENT Reports no additional complaints Card Reports no additional complaints GI Reports no additional complaints Reports no additional complaints Physical exam (Primary Care) Vital Signs: Last Vital Signs Pulse 111 H 02/11/23 11:02 BP 94/50 L 02/11/23 11:02 Pulse Ox 96 02/11/23 11:02 Oxygen Delivery Method Room Air 02/11/23 11:02 BMI result Body Mass Index 23.0 Tobacco/Smoking Status: Tobacco use Status Tobacco use date assessed 02/11/23 02/11/23 11:08 Patient Tobacco Use Status Current everyday Tobacco 02/11/23 11:08 Tobacco use type Cigarette 02/11/23 11:08 e-Cigarette/Vaping Use Never Used 02/11/23 11:08 Thrive Assessment: Date of Thrive Assessment Date Thrive assessed 01/01/23 02/11/23 11:08 Const General: ill appearing HENMT Head: Yes normal to inspection Neck Neck: Yes supple Resp Effort & Inspection: normal respiratory effort Auscultation: diminished lung sounds Cardio Rhythm: regular rhythm Heart sounds: S1 normal heart sound present and S2 normal heart sound present GI Inspection: Yes normal to inspection Palpation (GI): Soft to palpation Percussion: Yes normal to percussion Assessment and Plan Assessment & Plan (1) Bladder cancer: Code(s): C67.9 - Malignant neoplasm of bladder, unspecified Plan: Follow-up with oncology and urology (2) DM type 2 (diabetes mellitus, type 2): Code(s): E11.9 - Type 2 diabetes mellitus without complications Plan: Patient was advised to stop metformin and monitor blood glucose. If the fasting glucose increases over 200 she will start 500 mg of metformin (3) Chronic UTI (urinary tract infection): Code(s): N39.0 - Urinary tract infection, site not specified Plan: Check UA and culture today (4) COPD (chronic obstructive pulmonary disease): Comment: SHE HAS LONG-STANDING COPD, RELATED TO HER LONG-TIME SMOKING. H/O FREQUENT ADMISSIONS WITH ACUTE EXACERBATIONS. TX : TRELEGY 1 INHALATION DAILY. ALBUTEROL HFA 2 PUFFS Q 4-6 HOURS P.R.N. WHEN OUTDOORS. DUO-NEB SOLUTION IN THE NEB Q 4-6 HRS WHILE AWAKE. ADVISED THAT SHE SHOULD USE ALBUTEROL HFA 2 PUFFS Q 4-6 HOURS P.R.N. AND ALTERNATE WITH THE DUONEB UDs . ADVISED NOT TO USE PRIMATENE MIST , SIDE EFFECTS , ESPECIALLY ANXIETY AND TACHYCARDIA EXPLAINED . MOST IMPORTANT STEP IS TO STOP SMOKING COMPLETELY, HOWEVER SHE HAS TRIED HER BEST WITHOUT FULL SUCCESS. USE MUCINEX 1200 MG B.I.D. PRN ADVISE THAT SHE SHOULD USE OXYGEN 2 L/MINUTE , P.R.N., WHEN SHE FEELS MORE SHORT OF BREATH, INSTEAD OF USING ALBUTEROL HFA ARE PRIMATENE MIST. * Continue to participate in pulmonary rehab program. 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
== END 2023-02-11 12:05 | disposition home or self-care (01) ==
PROVIDERS: PCP Internal Medicine; Visit Provider Internal Medicine
DX: E11.9 Type 2 diabetes mellitus without complications (principal); J44.9 Chronic obstructive pulmonary disease, unspecified; C67.9 Malignant neoplasm of bladder, unspecified; C76.3 Malignant neoplasm of pelvis; N39.0 Urinary tract infection, site not specified
CPT/HCPCS: 99214

== ENCOUNTER 2023-02-18 09:45 | Outpatient (REF) | payer MEDICARE, OTHER, SELFPAY ==
[2023-02-18 13:08] LABS: Appearance Urine Cloudy; Color Urine Yellow; Glucose Urine UA Negative (Negative); Leukocyte Esterase Urine Moderate (2+) (Negative); Nitrite Urine Negative (Negative); Specific Gravity - Urine 1.015 (1.005-1.025); UMIC TRIGGER UA YES; Urine Blood Moderate (2+) (Negative); Urine Ketones Negative (Negative); Urine Protein 300 (3+) mg/dL (Neg-Trace)
[2023-02-18 13:09] LABS: MANUAL DIFF FLAG NO
[2023-02-18 13:11] LABS: Bacteria Urine 4+ (None Seen); Hyaline Casts Urine 0-2 /LPF (0-2); RBC Urine >20 /HPF (0-2); Squamous Epithelial Cell Urine 0-2 /HPF (0-2); WBC Urine >50 /HPF (0-5)
[2023-02-18 13:25] LABS: Basophils Absolute Auto 0.1 X10*3/uL (0.0-0.2); Eosinophils Absolute Auto 0.2 X10*3/uL (0.0-0.4); Hematocrit 37.7 % (37.0-47.0); Hemoglobin 10.8 g/dl (12.0-16.0); Imm Gran Abs Auto 0.14 X10*3/uL (0.00-0.03); Imm Gran Pct Auto 1.5 % (0.0-0.4); Lymphocytes Absolute Auto 2.4 X10*3/uL (1.2-4.9); Lymphocytes Percent Auto 25.9 % (20-40); Mean Corpuscular HGB Conc 28.6 g/dl (31.0-35.0); Mean Corpuscular Hemoglobin 23.5 pg (27.0-33.0); Mean Corpuscular Volume 82.1 fL (80.0-98.0); Mean Platelet Volume 11.4 fL (9.4-12.3); Monocytes Absolute Auto 0.7 X10*3/uL (0.1-1.2); Monocytes Percent Auto 7.6 % (2-11); Neutrophils Absolute Auto 5.8 x10*3/uL (2.0-8.3); Platelet Count 379 X10*3/uL (160-400); Red Blood Count 4.59 X10*6/uL (4.20-5.50); Red Cell Distribution Width 21.3 % (11.0-16.0); White Blood Count 9.4 X10*3/uL (4.8-10.8)
[2023-02-18 13:54] LABS: Alanine Aminotransferase 16 U/L (0-31); Albumin Level 3.5 g/dL (3.5-5.0); Alkaline Phosphatase 169 U/L (39-117); Anion Gap 16 (12-20); Aspartate Amino Transferase 34 U/L (5-31); Bilirubin Total 0.2 mg/dL (0.0-1.0); Blood Urea Nitrogen 17 mg/dL (9-16); Carbon Dioxide 21 mmol/L (22-29); Chloride 109 mmol/L (96-108); Estimated Glomerular Filt Rate 56; Glucose Fasting 125 mg/dL (60-99); Potassium 3.8 mmol/L (3.3-5.1); Sodium 142 mmol/L (135-145); Total Protein 7.5 g/dL (6.5-8.0)
[2023-02-18 14:01] LABS: Estimated Average Glucose 131 mg/dL; Hemoglobin A1c % 6.2 % (<6.0)
== END 2023-02-18 09:46 | disposition home or self-care (01) ==
LOC: HO.HMGCLDS 09:45
PROVIDERS: Absent Provider Internal Medicine Medical Oncology; PCP Internal Medicine; Visit Provider Internal Medicine
DX: E11.9 Type 2 diabetes mellitus without complications (principal); J44.9 Chronic obstructive pulmonary disease, unspecified; E78.5 Hyperlipidemia, unspecified; K75.81 Nonalcoholic steatohepatitis (NASH); C67.9 Malignant neoplasm of bladder, unspecified
CPT/HCPCS: 36415; 80053; 81001; 83036; 85025; 87086; 87088; 87186

== ENCOUNTER 2023-03-13 21:45 | Outpatient (REF) | payer MEDICARE, OTHER, SELFPAY ==
[2023-03-14 15:21] LABS: Appearance Urine Turbid; Color Urine Yellow; Glucose Urine UA Negative (Negative); Leukocyte Esterase Urine Large (3+) (Negative); Nitrite Urine Negative (Negative); PH 7.5 (5.0-9.0); Specific Gravity - Urine 1.015 (1.005-1.025); UMIC TRIGGER UA YES; Urine Blood Moderate (2+) (Negative); Urine Ketones Negative (Negative); Urine Protein 30 (1+) mg/dL (Neg-Trace)
[2023-03-14 16:22] LABS: Bacteria Urine 4+ (None Seen); Hyaline Casts Urine 0-2 /LPF (0-2); RBC Urine >20 /HPF (0-2); WBC Urine >50 /HPF (0-5)
== END 2023-03-13 21:46 | disposition home or self-care (01) ==
LOC: HO.HMGCLNP 21:45
PROVIDERS: PCP Internal Medicine; Visit Provider Internal Medicine Medical Oncology
DX: C67.9 Malignant neoplasm of bladder, unspecified (principal)
CPT/HCPCS: 81001

== ENCOUNTER 2023-03-24 13:09 | Emergency (ER) | payer MEDICARE, OTHER, SELFPAY ==
--- NOTE | 2023-03-24 13:21 | ED_ITS ---
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 Patient had a CT with oral and IV contrast done at [facility] last week while having the symptoms. Denies fever. Onset (ago): week(s) Related Data Home Medications Medication Instructions Recorded Confirmed multivitamin (Daily Multi-Vitamin 1 tab PO BEDTIME 12/25/20 03/27/23 tablet) aspirin 81 mg chewable tablet 1 tab PO BEDTIME 09/11/21 03/27/23 atorvastatin 80 mg tablet 80 mg PO BEDTIME 09/11/21 03/27/23 nitroglycerin 0.4 mg sublingual 1 tab sublingual Q5M PRN Chest Pain 09/11/21 03/27/23 tablet lancets 33 gauge (TRUEplus Lancets) #100 ea 11/20/21 03/27/23 bupropion HCl 150 mg 24 hr tablet, 150 mg PO DAILY 09/10/22 03/27/23 extended release Oxygen Home Use 09/23/22 03/27/23 hlzxhnodac-ntdimflvrtuab-yucyjfxz 1 tab PO Q6H PRN Headache 12/31/22 03/27/23 50 mg-325 mg-40 mg tablet ipratropium 0.5 mg-albuterol 3 mg 3 ml inhalation QID PRN Shortness 12/31/22 03/27/23 (2.5 mg base)/3 mL nebulization Of Breath soln nystatin 100,000 unit/gram topical 1 appl topical TID PRN Rash 12/31/22 03/27/23 powder zolpidem 10 mg tablet 10 mg PO BEDTIME 12/31/22 03/27/23 Previous Rx's Medication Instructions Recorded topiramate 100 mg tablet 100 mg PO BID #180 tabs 01/08/21 lancets 28 gauge (FreeStyle #100 ea 08/07/21 Lancets) guaifenesin 1,200 mg tablet, 1,200 mg PO BID 30 days #60 tabs 04/17/22 extended release 12 hr (Mucinex) cholecalciferol (vitamin D3) 25 25 mcg PO BEDTIME #90 tabs 05/30/22 mcg (1,000 unit) tablet blood sugar diagnostic (FreeStyle #100 ea 11/28/22 Lite Strips) sennosides 17.2 mg tablet (Senokot 17.2 mg PO BID #60 tabs 12/02/22 Extra Strength) flash glucose scanning reader #1 ea 12/11/22 (FreeStyle Karin 14 Day [place]) megestrol 400 mg/10 mL (40 mg/mL) 400 mg (10 mL) PO DAILY #300 mL 01/15/23 oral suspension dronabinol 2.5 mg capsule 2.5 mg PO BID #60 caps 01/28/23 ondansetron 8 mg disintegrating 8 mg PO Q8H #60 tabs 01/28/23 tablet metformin 500 mg tablet,extended 500 mg PO DAILY #90 tabs 02/11/23 release 24 hr loratadine 10 mg tablet (Claritin) 10 mg PO DAILY #90 tabs 02/18/23 fluticasone fur. 100 mcg-umeclid 1 ea inhalation DAILY #180 ea 02/19/23 62.5 mcg-vilant 25 mcg inhalat.powder (Trelegy Ellipta) cyanocobalamin (vitamin B-12) 2,000 mcg (2 x 1,000 mcg) PO 02/24/23 1,000 mcg tablet BEDTIME #180 tabs gabapentin 100 mg capsule 200 mg (2 x 100 mg) PO BID #360 02/24/23 caps albuterol sulfate 90 mcg/actuation 2 puff inhalation Q4-6H PRN for 03/02/23 aerosol inhaler wheezing #1 ea cefuroxime axetil 500 mg tablet 500 mg PO BID 7 days #14 tabs 03/24/23 linezolid 600 mg tablet 600 mg PO Q12H 10 days #20 tabs 03/24/23 Allergies Allergy/AdvReac Type Severity Reaction Status Date / Time amoxicillin [AMOXICILLIN] Allergy Mild DIARRHEA Verified 03/27/23 11:34 Darvocet A500 Allergy Unknown upset Verified 03/27/23 11:34 stomach melatonin Allergy Unknown Nausea and Verified 03/27/23 11:34 Vomiting oxycodone [From PERCOCET] Allergy Unknown NAUSEA,VOMI Verified 03/27/23 11:34 TING propoxyphene Allergy Unknown Stomach Verified 03/27/23 11:34 Upset influenza virus vaccine, AdvReac Intermediate NAUSEA,DIAR Verified 03/27/23 11:34 specific WU [FLU VACCINE] lactose [LACTOSE] AdvReac Intermediate GI UPSET Verified 03/27/23 11:34 metronidazole [From FLAGYL] AdvReac Intermediate NAUSEA & Verified 03/27/23 11:34 VOMITING Sulfa (Sulfonamide AdvReac Intermediate EYE DROPS Verified 03/27/23 11:34 Antibiotics) (ONLY)-IRITIS Review of Systems 2 Review of Systems: Yes all other systems are reviewed and are negative Neurologic: Denies Sensory deficit (Neuro) [facility] Past Medical History Medical History History of cancer 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 Mass of peritoneum History of smoking at least 1 pack per day for at least 30 years DM type 2 (diabetes mellitus, type 2) Left leg swelling Neck pain Vitamin B 12 deficiency Elevated BUN Bladder cancer Vertigo Nonalcoholic steatohepatitis (CHRISTINE) Hyperlipidemia Diabetic polyneuropathy associated with type 2 diabetes mellitus COPD (chronic obstructive pulmonary disease) Pulmonary nodule Smoker Low vitamin D level Vitamin B12 deficiency Cervical stenosis of spine Anxiety Depression Migraine headache HTN (hypertension) CAD (coronary artery disease) Surgical History History of heart artery stent History of carpal tunnel release Fusion of spine of cervical region History of hysterectomy Family History Family History Mother CVD (cardiovascular disease) CVA (cerebral vascular accident) Father CVD (cardiovascular disease) Sister Breast cancer Family/Other Breast cancer Social History Social History Household Members: Other Household Members Other:: house mate Housing: House Do you presently have visiting nurse or other home services: No Alcohol intake: former Patient Tobacco Use Status: Current everyday Tobacco user Tobacco use type: Cigarette Cigarette Packs Per Day: 0.5 Years Smoked: 63 e-Cigarette/Vaping Use: Never Used Second Hand Smoke Exposure: No Have you been hit, kicked, punched, or otherwise hurt by someone within the past year? If so, by whom?: No Do you feel safe in your current relationship?: Yes Advance Directives Date on File: 11/14/21 Patient : No service: No Current occupational status: retired Current occupation: Right Handed Cognitive needs: No Hearing needs: No Vision needs: Yes Physical Exam ED Vital Signs: Vital Signs - 24 hr 03/24/23 13:22 03/24/23 15:24 03/24/23 18:14 Temperature 97.8 F 97.9 F Pulse Rate 98 100 93 Respiratory Rate 18 18 18 Blood Pressure 98/37 L 100/49 L 103/44 L Pulse Oximetry 96 99 97 Oxygen Delivery Method Room Air Room Air Room Air BMI result Body Mass Index 20.8 Const Other: cachectic, endstage female in no acute distress Orientation/consciousness: oriented to person and patient oriented x3 Limitations: no limitations HENMT Head: Yes normal to inspection Ears: external ears normal General nose exam: Normal external nose present Mouth: Normal oral and palatal mucosa present and oropharynx normal Throat: Yes posterior oropharynx normal Eyes General: appearance normal, both eyes and all related structures Neck Neck: Yes normal visual inspection Chest Chest palpation & inspection: normal inspection of the chest Resp Auscultation: clear to auscultation bilaterally Cardio Jugular venous distension: no JVD Rate: regular rate Rhythm: regular rhythm Heart sounds: S1 normal heart sound present and S2 normal heart sound present GI Inspection: Yes normal to inspection Palpation (GI): Soft to palpation, nontender and No hepatosplenomegaly present Auscultation: normal bowel sounds General: Yes no CVA tenderness Back/Spine/Pelvis Back: no CVA tenderness Skin General skin exam: no rashes or lesions noted Neuro General: oriented to person and patient oriented x3 Cranial nerves: Yes CN's II-XII intact bilaterally Motor exam (neuro): 5/5 motor strength present throughout Sensory Exam: No Sensory deficit (Neuro) Extrem General: Yes normal to inspection Psych Appearance: grossly normal Course Course Course Narrative: This is an RME: Additional HPI, ROS, PE not included below will be deferred to primary provider. 72 yo female presenting with brown urine that her daughter noticed this morning. She describes it as muddy brown and is concerned for a fistula formation as patient has a history of complex UTIs. She is having associated dysuria and urgency. The daughter also reports that the oncology surgeon told her today that her cancer has spread to the genital region. Plan - UA, labs Reevaluation(s) Reevaluation #1: Awaiting CT from [facility] will give abx and dispo Time: 16:21 Reevaluation #2: Urine culture + klebsiela pneunmoniae --> was discharged on ceftin appropriate tx based off susceptibility Time: 09:17 Medications Administered Discontinued Medications Generic Name Dose Route Start Last Admin Trade Name Yanq PRN Reason Stop Dose Admin Ceftriaxone Sodium 1 gm/ 50 mls @ 100 mls/hr 03/24/23 17:30 03/24/23 18:09 Sodium Chloride IV 03/24/23 17:59 100 mls/hr ONCE ONE Administration Linezolid 600 mg 03/24/23 16:22 03/24/23 18:09 Linezolid 600 Mg Tablet PO 03/24/23 16:23 600 mg ONCE ONE Administration Medical Decision Making Medical Decision Making [facility] Narrative: This took over patient's case at the change of shift. Obtain the old record from [facility]. Patient had a large heterogeneous mass centered within the right hemipelvis consistent with a necrotic tumor patient also had noted multiple bilateral peritoneal implant suggestive of carcinomatosis. In the setting of metastatic disease patient wants to go home. Previous cultures are reviewed. Patient's urine was positive for having Endo coccus in the past. Resistant to multiple antibiotics. Sensitive to linezolid. Will go ahead and give were not a lid along with Ceftin for empiric coverage of UTI. Patient to follow-up with oncology on an outpatient basis. Case discussed with oncologist. Agree with plan. Differential Diagnosis Differential Diagnoses: The differential diagnosis associated with the presentation includes (metastatic cancer, bladder fistula, UTI were all consider) Admission/Observation Consideration of admission/observation: Escalation of care including admission/observation considered (upon arrival patient was considered for admission) Consult Healthcare Provider Management of the patient was discussed with: Motion Study Analyst (Dr Waters oncology) Lab Data [facility] Lab Attestation statement: I reviewed the patient's lab results. (no elevated wbc, urine infected) 03/24/23 14:04 03/24/23 14:04 Labs: Lab Results 03/24/23 03/24/23 Range/Units 14:04 16:01 WBC 6.0 (4.8-10.8) X10*3/uL RBC 3.95 L (4.20-5.50) X10*6/uL Hgb 9.4 L (12.0-16.0) g/dl Hct 31.5 L (37.0-47.0) % MCV 79.7 L (80.0-98.0) fL MCH 23.8 L (27.0-33.0) pg MCHC 29.8 L (31.0-35.0) g/dl RDW 18.5 H (11.0-16.0) % Plt Count 390 (160-400) X10*3/uL MPV 10.5 (9.4-12.3) fL Immature Gran % (Auto) 0.8 H (0.0-0.4) % Neut % (Auto) 57.7 (45-73) % Lymph % (Auto) 24.7 (20-40) % [place] % (Auto) 14.5 H (2-11) % Eos % (Auto) 1.5 (0-4) % Baso % (Auto) 0.8 (0-2) % Lymph # (Auto) 1.5 (1.2-4.9) X10*3/uL [place] # (Auto) 0.9 (0.1-1.2) X10*3/uL Eos # (Auto) 0.1 (0.0-0.4) X10*3/uL Baso # (Auto) 0.1 (0.0-0.2) X10*3/uL Abs Immat Gran (auto) 0.05 H (0.00-0.03) X10*3/uL Absolute Neuts (auto) 3.4 (2.0-8.3) x10*3/uL Absolute Nucleated RBC 0.000 (0.0-0.012) X10*3/uL Nucleated RBC % (auto) 0.0 (0.0-0.2) /100WBC Sodium 138 (135-145) mmol/L Potassium 3.7 (3.3-5.1) mmol/L Chloride 109 H (96-108) mmol/L Carbon Dioxide 19 L (22-29) mmol/L Anion Gap 14 (12-20) BUN 29 H (9-16) mg/dL Creatinine 1.03 (0.5-1.4) mg/dL Estim Creat Clear Calc 36.1 Estimated GFR 52 Random Glucose 125 H (60-115) mg/dL Calcium 9.4 (8.4-10.2) mg/dL Magnesium 2.3 (1.6-2.6) mg/dL Total Bilirubin 0.3 (0.0-1.0) mg/dL AST 24 (5-31) U/L ALT 14 (0-31) U/L Alkaline Phosphatase 154 H (39-117) U/L Total Protein 7.2 (6.5-8.0) g/dL Albumin 3.2 L (3.5-5.0) g/dL Urine Color DK YELLOW Urine Appearance Turbid Urine pH 7.0 (5.0-9.0) Ur Specific [place] 1.020 (1.005-1.025) Urine Protein 300 (3+) H (Neg-Trace) mg/dL Urine Glucose (UA) Negative (Negative) mg/dL Urine Ketones 15 (Negative) mg/dL Urine Blood Large (3+) H (Negative) Urine Nitrite Positive H (Negative) Ur Leukocyte Esterase Large (3+) H (Negative) Urine RBC >20 H (0-2) /HPF Urine WBC >50 H (0-5) /HPF Urine WBC Clumps Present Ur Squamous Epith Cells 11-20 (0-2) /HPF Urine Bacteria 4+ (None Seen) Hyaline Casts 3-5 (0-2) /LPF Independent Historian Clinical information obtained from an independent historian. History obtained from or confirmed by: Other (family) Tests considered The following testing was considered but not selected: CT of abdomen considered but patient had one 5 days ago Chronic Conditions Patient?s care impacted by: Cancer Discharge Plan Discharge Clinical Impression: Urinary tract infection, [place]-vesical fistula Patient Disposition: Home, Self-Care Instructions: Urinary Tract Infection in Older Adults (ED) Prescriptions: New cefuroxime axetil 500 mg tablet 500 mg PO BID 7 Days Qty: 14 0RF linezolid 600 mg tablet 600 mg PO Q12H 10 Days Qty: 20 0RF No Action topiramate 100 mg tablet 100 mg PO BID Qty: 180 3RF (DME) lancets [FreeStyle Lancets] 28 gauge misc See Rx Instructions .Route Qty: 100 3RF Rx Instructions: test blood sugar once a day cholecalciferol (vitamin D3) 25 mcg (1,000 unit) tablet 25 mcg PO BEDTIME Qty: 90 3RF (DME) FreeStyle Lite Strips Strip See Rx Instructions .Route Qty: 100 3RF Rx Instructions: test once a day (DME) FreeStyle Karin 14 Day [place] Misc See Rx Instructions .Route Qty: 1 4RF Rx Instructions: As directed loratadine [Claritin] 10 mg tablet 10 mg PO DAILY Qty: 90 1RF Trelegy Ellipta 100-62.5-25 mcg blister with device 1 ea inhalation DAILY Qty: 180 3RF gabapentin 100 mg capsule 200 mg PO BID Qty: 360 3RF cyanocobalamin (vitamin B-12) 1,000 mcg tablet 2,000 mcg PO BEDTIME Qty: 180 3RF albuterol sulfate 90 mcg/actuation HFA aerosol inhaler 2 puff inhalation Q4-6H PRN (Reason: for wheezing) Qty: 1 3RF nitroglycerin 0.4 mg tablet, sublingual 1 tab sublingual Q5M PRN (Reason: Chest Pain) atorvastatin 80 mg tablet 80 mg PO BEDTIME aspirin 81 mg tablet,chewable 1 tab PO BEDTIME Senokot Extra Strength 17.2 mg Tablet 17.2 mg PO BID Qty: 60 5RF megestrol 400 mg/10 mL (40 mg/mL) Suspension 400 mg PO DAILY Qty: 300 4RF dronabinol 2.5 mg Capsule 2.5 mg PO BID Qty: 60 3RF Rx Instructions: administer before lunch and evening meal/dinner ondansetron 8 mg Tablet,Disintegrating 8 mg PO Q8H Qty: 60 3RF bupropion HCl 150 mg Tablet Extended Release 24 Hr 150 mg PO DAILY dqrxieiblg-vyrbmykvhlpoj-kybp 50-325-40 mg tablet 1 tab PO Q6H PRN (Reason: Headache) nystatin 100,000 unit/gram powder 1 appl topical TID PRN (Reason: Rash) zolpidem 10 mg tablet 10 mg PO BEDTIME ipratropium-albuterol 0.5 mg-3 mg(2.5 mg base)/3 mL solution for nebulization 3 ml inhalation QID PRN (Reason: Shortness Of Breath) (DME) lancets [TRUEplus Lancets] 33 gauge misc See Rx Instructions .ROUTE DAILY Qty: 100 Rx Instructions: As directed (DME) Oxygen Home Use Kit See Rx Instructions .Route Rx Instructions: As directed metformin 500 mg tablet extended release 24 hr 500 mg PO DAILY Qty: 90 0RF multivitamin [Daily Multi-Vitamin] Tablet 1 tab PO BEDTIME Mucinex 1,200 mg tablet extended release 12hr 1,200 mg PO BID 30 Days Qty: 60 4RF Referrals: Lj Waters MD [Physician] - Interventions: ED Discharge Assessment Last Done: 03/24/23 19:47 Discharge Date/Time: 03/24/23 19:48
[2023-03-24 13:22] VITALS: BP 98/37; PULSE 98; RESP 18; TEMP 36.6; O2SAT 96; BMI 20.8
[2023-03-24 14:10] LABS: MANUAL DIFF FLAG NO
[2023-03-24 14:11] LABS: Basophils Absolute Auto 0.1 X10*3/uL (0.0-0.2); Basophils Percent Auto 0.8 % (0-2); Eosinophils Absolute Auto 0.1 X10*3/uL (0.0-0.4); Eosinophils Percent Auto 1.5 % (0-4); Hematocrit 31.5 % (37.0-47.0); Hemoglobin 9.4 g/dl (12.0-16.0); Imm Gran Abs Auto 0.05 X10*3/uL (0.00-0.03); Imm Gran Pct Auto 0.8 % (0.0-0.4); Lymphocytes Absolute Auto 1.5 X10*3/uL (1.2-4.9); Lymphocytes Percent Auto 24.7 % (20-40); Mean Corpuscular HGB Conc 29.8 g/dl (31.0-35.0); Mean Corpuscular Hemoglobin 23.8 pg (27.0-33.0); Mean Corpuscular Volume 79.7 fL (80.0-98.0); Mean Platelet Volume 10.5 fL (9.4-12.3); Monocytes Absolute Auto 0.9 X10*3/uL (0.1-1.2); Monocytes Percent Auto 14.5 % (2-11); Neutrophils Absolute Auto 3.4 x10*3/uL (2.0-8.3); Neutrophils Percent Auto 57.7 % (45-73); Platelet Count 390 X10*3/uL (160-400); Red Blood Count 3.95 X10*6/uL (4.20-5.50); Red Cell Distribution Width 18.5 % (11.0-16.0)
[2023-03-24 14:25] LABS: Alanine Aminotransferase 14 U/L (0-31); Albumin Level 3.2 g/dL (3.5-5.0); Alkaline Phosphatase 154 U/L (39-117); Anion Gap 14 (12-20); Aspartate Amino Transferase 24 U/L (5-31); Bilirubin Total 0.3 mg/dL (0.0-1.0); Blood Urea Nitrogen 29 mg/dL (9-16); Calcium 9.4 mg/dL (8.4-10.2); Carbon Dioxide 19 mmol/L (22-29); Chloride 109 mmol/L (96-108); Creatinine Clr Calc Pharmacy 36.1; Estimated Glomerular Filt Rate 52; Glucose Random 125 mg/dL (60-115); Magnesium 2.3 mg/dL (1.6-2.6); Potassium 3.7 mmol/L (3.3-5.1); Sodium 138 mmol/L (135-145); Total Protein 7.2 g/dL (6.5-8.0)
[2023-03-24 15:24] VITALS: BP 100/49; PULSE 100; RESP 18; O2SAT 99
[2023-03-24 16:08] LABS: Appearance Urine Turbid; Color Urine DK YELLOW; Glucose Urine UA Negative (Negative); Leukocyte Esterase Urine Large (3+) (Negative); Nitrite Urine Positive (Negative); UMIC TRIGGER UACC YES; Urine Blood Large (3+) (Negative); Urine Ketones 15 mg/dL (Negative); Urine Protein 300 (3+) mg/dL (Neg-Trace)
[2023-03-24 16:25] LABS: Bacteria Urine 4+ (None Seen); RBC Urine >20 /HPF (0-2); UACC Culture Trigger YES; WBC Clumps Urine Present; WBC Urine >50 /HPF (0-5)
[2023-03-24] MEDS: Linezolid 600 MG TABLET PO (18:09)
[2023-03-24] MEDS: cefTRIAXone sodium 1 GM in 0.9 % Sodium Chloride 50 ML IV (18:09)
[2023-03-24 18:14] VITALS: BP 103/44; PULSE 93; RESP 18; TEMP 36.6; O2SAT 97
--- NOTE | 2023-03-25 09:37 | MHC.HEMONC ---
Pt dtr-in-law, Lizabeth called. She is HCP. Dai had a CT last week at [facility] and saw Dr Robles ATLASSIAN ADMINISTRATOR ONC yesterday. She was told the cancer has progressed and comfort care is the next step. Patient was also in our ER last night and received antibiotics for UTI. According to Lizabeth there is a possibility of a fistula. Dai would like to hear from Dr Waters regarding next steps. If Hospice referral is made they would like [facility]. I have called for CT report and am awaiting dictation from Dr Robles. I have canceled chemo appointments for next week pending plan.
== END 2023-03-24 19:48 | disposition home or self-care (01) ==
PROVIDERS: Physician Assistant; Emergency Provider Emergency Medicine; PCP Internal Medicine
DX: N32.1 Vesicointestinal fistula (principal); N39.0 Urinary tract infection, site not specified; B96.1 Klebsiella pneumoniae [K. pneumoniae] as the cause of diseases classified elsewhere; C56.9 Malignant neoplasm of unspecified ovary; C79.82 Secondary malignant neoplasm of genital organs; E11.9 Type 2 diabetes mellitus without complications; I10 Essential (primary) hypertension; E78.5 Hyperlipidemia, unspecified; F17.210 Nicotine dependence, cigarettes, uncomplicated; Z79.82 Long term (current) use of aspirin; Z79.899 Other long term (current) drug therapy
CPT/HCPCS: 36415; 80053; 81001; 83735; 85025; 87086; 87088; 87186; 96374; 99284; J0696

== ENCOUNTER 2023-03-27 11:40 | Outpatient (RCR) | payer MEDICARE, MEDICAID, SELFPAY ==
[2022-09-18 14:02] VITALS: BP 107/52; PULSE 100; O2SAT 94
--- NOTE | 2022-09-18 14:35 | P.CNHO_ITS ---
Subjective - Subjective Chief complaint: Consult for: Bladder cancer. Patient: new to practice Consult date: 09/18/22 Requesting Physician: Dr. Matthews. Primary Care Provider: Linda Matthews MD Medical Summary: DIAGNOSIS: BLADDER CARCINOMA. CT 4B,CN3,MANAGER REPORT. STAGE IV A. HPI - Consult Narrative Reason for consult: Consult for: Bladder cancer. Narrative: Dai Chakraborty is a 72 year old lady referred by Dr. Ponce on account of progressive bladder cancer. She was admitted to the hosptial recently, discharge summary: 72 yo F with a PMH of COPD, CAD, DM, HTN, active Tobacco use (4 to 6 cig/day), Cervical stenosis who presents to the ED with increasing shortness of breath, chest tightness for? 2 days? and not getting relief with Trelegy albuterol and DuoNeb. She has cough with? phlegm. She has no fever or chills. She has had no inpatient admission for more than a year.?Work up in ED: no PNA on CXR, nl WBC, no hypoxia. Treated with Duoneb, IV Solu-medrol, magneseium and Ceftriaxone. Course: Patient admitted to [facility] [place] started on ceftriaxone and azithromycin. She was also started on pulse dose Solu-Medrol. DuoNebs q.4 hours while awake; slow to respond to therapy. She felt better and left to return to home on O2. At this point she is medically acceptable for discharge will be discharged on a course of Ceftin and a prednisone taper. She can follow-up with PCP in office in 2 weeks PAST MEDICAL HISTORY: She was initially diagnosed with Bladder carcinoma in 2019. On cystoscopy, found to have a 2.5 to 3 cm lesion on the posterior wall upper half of the bladder, long smoking history. Plan for removal with bilateral retrograde. She has had abdominal CT, which was normal. Bladder, transurethral resection: - Low grade papillary urothelial carcinoma, non-invasive. - No muscularis propria identified. Bladder, transurethral resection/biopsy Type: Papillary urothelial carcinoma, non-invasive Histologic grade: Low grade Muscularis propria: Not identified Extent of invasion: Non-invasive Lymphovascular invasion: Not identified. Discussed TURBT findings: High-grade invasive bladder cancer with LVI. CT scan of the abdomen and pelvis from 08/08/22: 1. Large mass arising from the left bladder wall with direct extension into the prostate fossa, left internal iliac chain and the peritoneal cavity. 2. There is extensive retroperitoneal, pelvic and right iliac lymphadenopathy. 3. There are 2 large peritoneal masses in the right mid abdomen. 4. There is no hydronephrosis seen. 5. There is no radiopaque renal calculi or enhancing renal mass seen. 6. There is mild hepatomegaly with no focal lesion seen. 7. There is a small splenic artery aneurysm. 8. There is a right lower lobe pulmonary nodule which is stable compared to CT chest 03/21/2022. Anterior abdominal wall - left upper quadrant, peritoneal mass CT CHEST from March, revealed: * Moderate pulmonary emphysema. * No acute pulmonary disease. No evidence of pulmonary embolism. * A few small stable pulmonary nodules are detected. No new lung nodule, pulmonary mass or pleural effusion. * Atherosclerotic disease of coronary arteries and thoracic aorta without aortic aneurysm. * Progressive enlargement of a lymph node in the upper abdomen, likely from metastatic disease process. Bladder cancer low-grade recurrence (early 2020) underwent immunotherapy induction Bladder cancer was initially diagnosed during evaluation for gross hematuria - 06/29 Dr Ponce. Bladder intervention(s) performed 07/27 , TURBT, , Ta noninvasive papillary carcinoma, Papillary lesion of low grade malignant potential 08/27 BCG 3 induction due to other risk factors. - 05/31 TURBT with gemcitabine - low-grade bladder cancer - Induction with 6 weeks Gemcitabine Abdomen therapy - 07/01 6 weeks gemcitabine induction, 09/28 three-week gemcitabine boost - 08/31 TURBT posterior mid bladder high-grade invasive with LVI Recurrence Risk per EORTC Low Risk. Bladder cancer risk factors Organic Solvent exposure No smoking Yes - heavy smoker - greater than 50 year pack per day Prior Cystoscopy 11/26 , Negative 06/30 NAD, 01/28 1 cm posterior wall lesion. 09/28 NAD, 12/29 NAD, 08/29 NAD Prior Cytology 08/27 , Negative for malignancy, 02/28 NAD Prior Imaging 05/29 CT scan with contrast, Bladder lesion 1,6 cm - 05/[address] with known nodules - 07/31 CT Urogram - There is bulky lymphadenopathy in the left internal iliac chain and likely exophytic mass arising off the left bladder with direct extension to the left bladder wall, the peritoneal and into the prostate fossa Planned treatment cystoscopy 6 months - goes to [place] for winter. PFSH: Medical History: Anxiety CAD (coronary artery disease) Cervical stenosis of spine COPD (chronic obstructive pulmonary disease) Depression Diabetic polyneuropathy associated with type 2 diabetes mellitus DM type 2 (diabetes mellitus, type 2) Elevated BUN History of smoking at least 1 pack per day for at least 30 years HTN (hypertension) FAMILY HISTORY: Younger sister has breast cancer. 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 She is . She had 3 children. She used to smoke 2 packs a day quit now down to 4 cigarettes a day. Denies alcohol. ROS: She has felt really fatigued lately. No fever chills or night sweats. Appetite is not good. She has lost weight. She has headaches she gets migraines. Denies chest pain. She has COPD so gets short of breath. Sometimes when she bends over she feels pain on the side of her abdomen. It is fleeting. Sometimes up to 6 on 1-10 scale. She denies diarrhea. No gross blood in the stools. New Denies any recent hematuria. Denies joint pain or muscle pain. She has leg weakness. She feels depressed. No skin rashes or pruritus. Oncology Screenings - ECOG Performance Status ECOG Performance Status: 1 [facility] Medical History: Medical History (Last Updated 10/02/22 @ 13:31 by Eben Griggs MD) Anxiety CAD (coronary artery disease) Cervical stenosis of spine COPD (chronic obstructive pulmonary disease) Depression Diabetic polyneuropathy associated with type 2 diabetes mellitus DM type 2 (diabetes mellitus, type 2) Elevated BUN History of smoking at least 1 pack per day for at least 30 years HTN (hypertension) Hyperlipidemia Left leg swelling Low vitamin D level Mass of peritoneum Migraine headache Neck pain Nonalcoholic steatohepatitis (CHRISTINE) Pulmonary nodule Smoker Vertigo Vitamin B 12 deficiency Vitamin B12 deficiency Family History: Family History (Last Reviewed 10/02/22 @ 13:30 by Eben Griggs MD) Mother CVD (cardiovascular disease) CVA (cerebral vascular accident) Father CVD (cardiovascular disease) Sister Breast cancer Family/Other Breast cancer Surgical History: Surgical History (Last Reviewed 10/02/22 @ 13:30 by Eben Griggs MD) Fusion of spine of cervical region History of carpal tunnel release History of hysterectomy Social History: Social History (Last Reviewed 10/02/22 @ 13:30 by Eben Griggs MD) Living Situation History: Household Members: Other Household Members Other:: roommate Housing: House Do you presently have visiting nurse or other home services: No Tobacco History: Patient Tobacco Use Status: Current everyday Tobacco Tobacco use type: Cigarette Years Smoked: 62 yrs e-Cigarette/Vaping Use: Never Used Second Hand Smoke Exposure: No Advance Directives: Advance Directives Date on File: 11/14/21 Occupation Assessmet: service: No Current occupational status: retired Current occupation: Right Handed Home Medications and Allergies Home Medications Medication Instructions Recorded Confirmed Type multivitamin (Daily Multi-Vitamin 1 tab PO BEDTIME 12/25/20 10/02/22 History tablet) aspirin 81 mg chewable tablet 1 tab PO BEDTIME 09/11/21 10/02/22 History atorvastatin 80 mg tablet 80 mg PO BEDTIME 09/11/21 10/02/22 History nitroglycerin 0.4 mg sublingual 1 tab sublingual NEEDED angina 09/11/21 10/02/22 History tablet isosorbide mononitrate 30 mg 30 mg PO DAILY 09/25/21 10/02/22 History tablet,extended release 24 hr zolpidem 5 mg tablet 5 mg PO BEDTIME PRN Insomnia 11/06/21 10/02/22 History amlodipine 5 mg tablet 5 mg PO DAILY 11/20/21 10/02/22 History lancets 33 gauge (TRUEplus Lancets) #100 ea 11/20/21 10/02/22 History bupropion HCl 150 mg 24 hr tablet, 150 mg PO QAM 09/10/22 10/02/22 History extended release metformin 750 mg tablet,extended 750 mg PO DAILY 09/10/22 10/02/22 History release 24 hr Oxygen Home Use 09/23/22 10/02/22 History epinephrine 0.125 mg/actuation 1 puff inhalation Q4H PRN 09/23/22 10/02/22 History aerosol inhaler (Primatene Mist) Allergies Allergy/AdvReac Type Severity Reaction Status Date / Time amoxicillin [AMOXICILLIN] Allergy Mild DIARRHEA Verified 10/02/22 12:52 Darvocet A500 Allergy Unknown upset Verified 10/02/22 12:52 stomach melatonin Allergy Unknown Nausea and Verified 10/02/22 12:52 Vomiting oxycodone [From PERCOCET] Allergy Unknown NAUSEA,VOMI Verified 10/02/22 12:52 TING propoxyphene Allergy Unknown Stomach Verified 10/02/22 12:52 Upset influenza virus vaccine, AdvReac Intermediate NAUSEA,DIAR Verified 10/02/22 12:52 specific WU [FLU VACCINE] lactose [LACTOSE] AdvReac Intermediate GI UPSET Verified 10/02/22 12:52 metronidazole [From FLAGYL] AdvReac Intermediate NAUSEA & Verified 10/02/22 12:52 VOMITING Sulfa (Sulfonamide AdvReac Intermediate EYE DROPS Verified 10/02/22 12:52 Antibiotics) (ONLY)-IRITIS Physical Exam Vital signs: Vital Signs Pulse 100 09/18/22 14:02 BP 107/52 L 09/18/22 14:02 Pulse Ox 94 09/18/22 14:02 O2 Del Method Room Air 09/18/22 14:02 - Constitutional Present: no acute distress - Routine HEENT Exam Head: Present: atraumatic, normal inspection Eye: Present: normal appearance ENT: Present: mucous membranes moist - Routine Neck Exam Present: supple - Routine Respiratory Exam Present: CTAB - Routine Cardiovascular Exam Cardiovascular: Present: RRR, S1, S2 - Routine Abdominal Exam Present: nontender - Routine Extremities Exam Present: nontender - Routine Skin Exam Present: intact - Routine Neurological Exam Present: alert, oriented X3 - Routine Psychiatric Exam Present: depressed Hem/Onc Consult Result - Labs CBC & Chem 7: 09/18/22 15:16 09/18/22 15:16 Assessment and Plan Patient Active problem list reviewed?: Yes (1) Bladder cancer Problem details: Recurrent low-grade TURBT with induction immunotherapy 2020 2022 - high-grade bladder cancer Status: Acute Assessment and plan: A 67-year-old female, seen in office for microscopic hematuria and recurrent UTI. On cystoscopy, found to have a 2.5 to 3 cm lesion on the posterior wall upper half of the bladder, long smoking history. Plan for removal with bilateral retrograde. She has had abdominal CT, which was normal. Bladder, transurethral resection: - Low grade papillary urothelial carcinoma, non-invasive. - No muscularis propria identified. Bladder, transurethral resection/biopsy Type: Papillary urothelial carcinoma, non-invasive Histologic grade: Low grade Muscularis propria: Not identified Extent of invasion: Non-invasive Lymphovascular invasion: Not identified papillary urothelial Carcinoma, High grade, invades into lamina propria. LVI seen. High grade. Muscularis present. CT scan of the abdomen and pelvis from 08/08/22: 1. Large mass arising from the left bladder wall with direct extension into the prostate fossa, left internal iliac chain and the peritoneal cavity. 2. There is extensive retroperitoneal, pelvic and right iliac lymphadenopathy. 3. There are 2 large peritoneal masses in the right mid abdomen. 4. There is no hydronephrosis seen. 5. There is no radiopaque renal calculi or enhancing renal mass seen. 6. There is mild hepatomegaly with no focal lesion seen. 7. There is a small splenic artery aneurysm. 8. There is a right lower lobe pulmonary nodule which is stable compared to CT chest 03/21/2022. Patient has had TURBT x3. She has had intravesical therapy: With BCG in 2018. With Gemzar in 2020. With mitomycin in 2022. She now seems to have wide spread disease, in the abdomen. PLAN: Will request IR guided biopsy of right iliac adenopathy. I discussed with Dr. Beasley who is willing to proceed. Scheduled for 10/22, at 1.30 pm. Will get a CT scan of the chest for staging. She will be a candidate for systemic chemotherapy, with carboplatin and gemcitabine according to the NCCN guidelines. She would be a candidate for maintenance Avalumab therapy, based upon her response. Will get PDL1 status on the tumor tissue to see if pembrolizumab/Atezulizumab would be indicated at a later date. (10%.) All her questions were answered to her satisfaction. She will return in a couple of weeks for a follow-up. She met with our lead case manager as well. Thank you, Cc: Dr. Matthews. Dr. Ponce. ADDENDUM: Patient called to report that she would like to delay her treatment till October. - Time Spent With Patient Time Spent with Patient (in minutes): 30
--- NOTE | 2022-09-18 15:30 | MHC.HEMONCSW ---
DR. Waters asked me to consult on a new Pt. I met with Pt who is on her third bout with bladder cancer and her primary referred her here. She previously just had the cancer cells removed surgically. She is frustrated that it has returned, but has a good perspective on what she is facing, and the prospect of chemo. She states she is not afraid. She lives with a male housemate whom she has know since they were children, but she believes he is too negative and complains a lot. She does have good family support, tho most of them live in [place]. so she only gets to see her grand and great grandchildren, but once a year which saddens her. She has a Health Care Proxy and there is one in the record.
[2022-09-18 15:31] LABS: MANUAL DIFF FLAG NO
[2022-09-18 15:51] LABS: Basophils Absolute Auto 0.1 X10*3/uL (0.0-0.2); Basophils Percent Auto 0.3 % (0-2); Eosinophils Absolute Auto 0.7 X10*3/uL (0.0-0.4); Eosinophils Percent Auto 3.6 % (0-4); Hematocrit 37.3 % (37.0-47.0); Hemoglobin 11.5 g/dl (12.0-16.0); Imm Gran Abs Auto 0.66 X10*3/uL (0.00-0.03); Imm Gran Pct Auto 3.6 % (0.0-0.4); Lymphocytes Absolute Auto 4.2 X10*3/uL (1.2-4.9); Lymphocytes Percent Auto 22.7 % (20-40); Mean Corpuscular HGB Conc 30.8 g/dl (31.0-35.0); Mean Corpuscular Hemoglobin 24.1 pg (27.0-33.0); Mean Corpuscular Volume 78.2 fL (80.0-98.0); Mean Platelet Volume 10.5 fL (9.4-12.3); Monocytes Absolute Auto 1.5 X10*3/uL (0.1-1.2); Monocytes Percent Auto 8.2 % (2-11); Neutrophils Absolute Auto 11.4 x10*3/uL (2.0-8.3); Neutrophils Percent Auto 61.6 % (45-73); Platelet Count 495 X10*3/uL (160-400); Red Blood Count 4.77 X10*6/uL (4.20-5.50); Red Cell Distribution Width 17.4 % (11.0-16.0); SCAN SMEAR FLAG 1; White Blood Count 18.5 X10*3/uL (4.8-10.8)
[2022-09-18 16:11] LABS: Alanine Aminotransferase 37 U/L (0-31); Albumin Level 3.4 g/dL (3.5-5.0); Alkaline Phosphatase 101 U/L (39-117); Anion Gap 13 (12-20); Aspartate Amino Transferase 29 U/L (5-31); Bilirubin Total 0.4 mg/dL (0.0-1.0); Blood Urea Nitrogen 20 mg/dL (9-16); Calcium 8.8 mg/dL (8.4-10.2); Carbon Dioxide 25 mmol/L (22-29); Chloride 106 mmol/L (96-108); Estimated Glomerular Filt Rate 54; Glucose Random 164 mg/dL (60-115); Iron 84 mcg/dL (30-160); Lactate Dehydrogenase 303 U/L (122-220); Percent Iron Saturation 30 % (15-50); Potassium 3.9 mmol/L (3.3-5.1); Sodium 140 mmol/L (135-145); Total Iron Binding Capacity 279 mcg/dL (228-428); Total Protein 5.9 g/dL (6.5-8.0); Unsaturated Iron Binding 195 ug/dL
--- NOTE | 2022-09-18 16:19 | MHC.HEMONCMA ---
patient seen today for bladder cancer, vss,labs, following up in 1 month with provider
[2022-09-18 16:40] LABS: Ferritin 198 ng/mL (10-250); Folate 4.1 ng/mL (> or = 4.0); Vitamin B12 282 pg/mL (200-900)
--- NOTE | 2022-10-16 10:18 | MHC.HEMONCMA ---
called patient regarding ct biopsy, scheduled for 10/22 at 1:30
--- NOTE | 2022-11-03 14:57 | PM.HEMONCPN ---
Medical Summary - Medical Summary Date of Service: 11/03/22 Chief complaint: Follow-up for: Serous carcinoma. Primary Care Provider: Linda Matthews MD Medical Summary: DIAGNOSIS: 1. BLADDER CARCINOMA. 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 2. Serous papillary Tumor. Interval History Interval history: Dai Chakraborty is a 72 year old lady, here for a follow-up visit. She has felt rather tired, lately. No fever chills or night sweats. She has headaches she gets migraines. Denies chest pain. She gets SOB, she has COPD. She feels rather bloated. She feels pain on the side of her abdomen upon bending. It is fleeting. Sometimes up to 6 on 1-10 scale. She denies diarrhea. No gross blood in the stools. Appetite is not good. She has lost weight. Denies any recent hematuria. Denies joint pain or muscle pain. She has leg weakness. She feels depressed. No skin rashes or pruritus. PRESENTING HISTORY: She was referred by Dr. Ponce on account of progressive bladder cancer. She was admitted to the hosptial recently, discharge summary: 72 yo F with a PMH of COPD, CAD, DM, HTN, active Tobacco use (4 to 6 cig/day), Cervical stenosis who presents to the ED with increasing shortness of breath, chest tightness for? 2 days? and not getting relief with Trelegy albuterol and DuoNeb. She has cough with? phlegm. She has no fever or chills. She has had no inpatient admission for more than a year.?Work up in ED: no PNA on CXR, nl WBC, no hypoxia. Treated with Duoneb, IV Solu-medrol, magneseium and Ceftriaxone. Course: Patient admitted [place] [facility] [place] started on ceftriaxone and azithromycin. She was also started on pulse dose Solu-Medrol. DuoNebs q.4 hours while awake; slow to respond to therapy. She felt better and left to return to home on O2. At this point she is medically acceptable for discharge will be discharged on a course of Ceftin and a prednisone taper. She can follow-up with PCP in office in 2 weeks PAST MEDICAL HISTORY: She was initially diagnosed with Bladder carcinoma in 2019. On cystoscopy, found to have a 2.5 to 3 cm lesion on the posterior wall upper half of the bladder, long smoking history. Plan for removal with bilateral retrograde. She has had abdominal CT, which was normal. Bladder, transurethral resection: - Low grade papillary urothelial carcinoma, non-invasive. - No muscularis propria identified. Bladder, transurethral resection/biopsy Type: Papillary urothelial carcinoma, non-invasive Histologic grade: Low grade Muscularis propria: Not identified Extent of invasion: Non-invasive Lymphovascular invasion: Not identified. Discussed TURBT findings: High-grade invasive bladder cancer with LVI. CT scan of the abdomen and pelvis from 08/08/22: 1. Large mass arising from the left bladder wall with direct extension into the prostate fossa, left internal iliac chain and the peritoneal cavity. 2. There is extensive retroperitoneal, pelvic and right iliac lymphadenopathy. 3. There are 2 large peritoneal masses in the right mid abdomen. 4. There is no hydronephrosis seen. 5. There is no radiopaque renal calculi or enhancing renal mass seen. 6. There is mild hepatomegaly with no focal lesion seen. 7. There is a small splenic artery aneurysm. 8. There is a right lower lobe pulmonary nodule which is stable compared to CT chest 03/21/2022. Anterior abdominal wall - left upper quadrant, peritoneal mass CT CHEST from March, revealed: * Moderate pulmonary emphysema. * No acute pulmonary disease. No evidence of pulmonary embolism. * A few small stable pulmonary nodules are detected. No new lung nodule, pulmonary mass or pleural effusion. * Atherosclerotic disease of coronary arteries and thoracic aorta without aortic aneurysm. * Progressive enlargement of a lymph node in the upper abdomen, likely from metastatic disease process. Bladder cancer low-grade recurrence (early 2020) underwent immunotherapy induction Bladder cancer was initially diagnosed during evaluation for gross hematuria - 06/29 Dr Ponce. Bladder intervention(s) performed 07/27 , TURBT, , Ta noninvasive papillary carcinoma, Papillary lesion of low grade malignant potential 08/27 BCG 3 induction due to other risk factors. - 05/31 TURBT with gemcitabine - low-grade bladder cancer - Induction with 6 weeks Gemcitabine Abdomen therapy - 07/01 6 weeks gemcitabine induction, 09/28 three-week gemcitabine boost - 08/31 TURBT posterior mid bladder high-grade invasive with LVI Recurrence Risk per EORTC Low Risk. Bladder cancer risk factors Organic Solvent exposure No smoking Yes - heavy smoker - greater than 50 year pack per day Prior Cystoscopy 11/26 , Negative 06/30 NAD, 01/28 1 cm posterior wall lesion. 09/28 NAD, 8 NAD, 08/29 NAD Prior Cytology 08/27 , Negative for malignancy, 02/28 NAD Prior Imaging 05/29 CT scan with contrast, Bladder lesion 1,6 cm - 05/[address] with known nodules - 07/31 CT Urogram - There is bulky lymphadenopathy in the left internal iliac chain and likely exophytic mass arising off the left bladder with direct extension to the left bladder wall, the peritoneal and into the prostate fossa Planned treatment cystoscopy 6 months - goes to [place] for winter. PFSH: Medical History: Anxiety CAD (coronary artery disease) Cervical stenosis of spine COPD (chronic obstructive pulmonary disease) Depression Diabetic polyneuropathy associated with type 2 diabetes mellitus DM type 2 (diabetes mellitus, type 2) Elevated BUN History of smoking at least 1 pack per day for at least 30 years HTN (hypertension) FAMILY HISTORY: Younger sister has breast cancer. 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 She is . She had 3 children. She used to smoke 2 packs a day quit now down to 4 cigarettes a day. Denies alcohol. Review of Systems - Constitutional Reports system reviewed and no additional complaints, except as documented, Reports lack of energy, Reports weakness, Denies weight gain - Eyes Reports system reviewed and no additional complaints, except as documented - ENT Reports system reviewed and no additional complaints, except as documented - Cardiovascular Reports system reviewed and no additional complaints, except as documented - Respiratory Reports no additional respiratory complaints - Gastrointestinal Reports system reviewed and no additional complaints, except as documented, Reports abdominal pain Comments: Bloating - Genitourinary Reports no additional female genitourinary complaints - Musculoskeletal Reports system reviewed and no additional complaints, except as documented - Integumentary/Breasts Skin/Breast: Reports no additional skin complaints - Neurologic Reports system reviewed and no additional complaints, except as documented - Psychiatric Reports system reviewed and no additional complaints, except as documented - Endocrine Reports no additional endocrine complaints - Hematologic/Lymphatic Reports system reviewed and no additional complaints, except as documented - Allergic/Immunologic Reports system reviewed and no additional complaints, except as documented [facility] Medical History: Medical History (Last Updated 10/30/22 @ 14:57 by Eben Griggs MD) Anxiety CAD (coronary artery disease) Cervical stenosis of spine COPD (chronic obstructive pulmonary disease) Depression Diabetic polyneuropathy associated with type 2 diabetes mellitus DM type 2 (diabetes mellitus, type 2) Elevated BUN History of smoking at least 1 pack per day for at least 30 years HTN (hypertension) Hyperlipidemia Left leg swelling Low vitamin D level Mass of peritoneum Migraine headache Neck pain Nonalcoholic steatohepatitis (CHRISTINE) Pulmonary nodule 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 Smoker Vertigo Vitamin B 12 deficiency Vitamin B12 deficiency Functional capacity: uses cane/walker Patient : No Family History: Family History (Last Reviewed 10/30/22 @ 14:41 by MARYANN Torres) Mother CVD (cardiovascular disease) CVA (cerebral vascular accident) Father CVD (cardiovascular disease) Sister Breast cancer Family/Other Breast cancer Surgical History: Surgical History (Last Reviewed 10/30/22 @ 14:41 by MARYANN Torres) Fusion of spine of cervical region History of carpal tunnel release History of heart artery stent History of hysterectomy Social History: Social History (Last Reviewed 10/30/22 @ 14:41 by MARYANN Torres) Living Situation History: Household Members: Other Household Members Other:: roommate Housing: House Do you presently have visiting nurse or other home services: No Tobacco History: Patient Tobacco Use Status: Current everyday Tobacco Tobacco use type: Cigarette Years Smoked: 62 yrs e-Cigarette/Vaping Use: Never Used Second Hand Smoke Exposure: No Advance Directives: Advance Directives Date on File: 11/14/21 Occupation Assessmet: service: No Current occupational status: retired 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 Performance Status ECOG Performance Status: 1 Home Medications and Allergies Home Medications Medication Instructions Recorded Confirmed Type multivitamin (Daily Multi-Vitamin 1 tab PO BEDTIME 12/25/20 11/03/22 History tablet) aspirin 81 mg chewable tablet 1 tab PO BEDTIME 09/11/21 11/03/22 History atorvastatin 80 mg tablet 80 mg PO BEDTIME 09/11/21 11/03/22 History nitroglycerin 0.4 mg sublingual 1 tab sublingual NEEDED angina 09/11/21 11/03/22 History tablet isosorbide mononitrate 30 mg 30 mg PO DAILY 09/25/21 11/03/22 History tablet,extended release 24 hr zolpidem 5 mg tablet 5 mg PO BEDTIME PRN Insomnia 11/06/21 11/03/22 History amlodipine 5 mg tablet 5 mg PO DAILY 11/20/21 11/03/22 History lancets 33 gauge (TRUEplus Lancets) #100 ea 11/20/21 11/03/22 History bupropion HCl 150 mg 24 hr tablet, 150 mg PO QAM 09/10/22 11/03/22 History extended release metformin 750 mg tablet,extended 750 mg PO DAILY 09/10/22 11/03/22 History release 24 hr Oxygen Home Use 09/23/22 11/03/22 History epinephrine 0.125 mg/actuation 1 puff inhalation Q4H PRN Wheezing 09/23/22 11/03/22 History aerosol inhaler (Primatene Mist) Allergies Allergy/AdvReac Type Severity Reaction Status Date / Time amoxicillin [AMOXICILLIN] Allergy Mild DIARRHEA Verified 10/30/22 14:41 Darvocet A500 Allergy Unknown upset Verified 10/30/22 14:41 stomach melatonin Allergy Unknown Nausea and Verified 10/30/22 14:41 Vomiting oxycodone [From PERCOCET] Allergy Unknown NAUSEA,VOMI Verified 10/30/22 14:41 TING propoxyphene Allergy Unknown Stomach Verified 10/30/22 14:41 Upset influenza virus vaccine, AdvReac Intermediate NAUSEA,DIAR Verified 10/30/22 14:41 specific WU [FLU VACCINE] lactose [LACTOSE] AdvReac Intermediate GI UPSET Verified 10/30/22 14:41 metronidazole [From FLAGYL] AdvReac Intermediate NAUSEA & Verified 10/30/22 14:41 VOMITING Sulfa (Sulfonamide AdvReac Intermediate EYE DROPS Verified 10/30/22 14:41 Antibiotics) (ONLY)-IRITIS Exam Vital signs: Vital Signs Pulse 100 09/18/22 14:02 BP 107/52 L 09/18/22 14:02 Pulse Ox 94 09/18/22 14:02 O2 Del Method Room Air 09/18/22 14:02 - Constitutional Present: no acute distress - Routine HEENT Exam Head: Present: atraumatic, normal inspection Eye: Present: normal appearance ENT: Present: mucous membranes moist - Routine Neck Exam Present: full ROM - Routine Respiratory Exam Present: CTAB - Routine Cardiovascular Exam Cardiovascular: Present: RRR, S1, S2 - Routine Abdominal Exam Present: nontender - Routine Rectal Exam Patient deferred: digital exam - Routine Extremities Exam Present: nontender - Routine Back/Spine/Pelvis Exam Back/Spine: Present: full ROM - Routine Skin Exam Present: intact - Routine Neurological Exam Present: alert, oriented X3 - Routine Psychiatric Exam Present: normal affect Data - Labs CBC & Chem 7: 11/03/22 15:03 11/03/22 15:03 Labs: 09/18/22 15:16 Complete Blood Count Auto Diff Stat Comprehensive Met. Panel Stat Ferritin Routine IRON PROFILE Routine LDH [Lactate Dehydrogenase] Routine Vitamin B12 and Folate Routine Laboratory Last Values WBC 18.5 X10*3/uL (4.8-10.8) H 09/18/22 15:16 RBC 4.77 X10*6/uL (4.20-5.50) 09/18/22 15:16 Hgb 11.5 g/dl (12.0-16.0) L 09/18/22 15:16 Hct 37.3 % (37.0-47.0) 09/18/22 15:16 MCV 78.2 fL (80.0-98.0) L 09/18/22 15:16 MCH 24.1 pg (27.0-33.0) L 09/18/22 15:16 MCHC 30.8 g/dl (31.0-35.0) L 09/18/22 15:16 RDW 17.4 % (11.0-16.0) H 09/18/22 15:16 Plt Count 495 X10*3/uL (160-400) H D 09/18/22 15:16 MPV 10.5 fL (9.4-12.3) 09/18/22 15:16 Immature Gran % (Auto) 3.6 % (0.0-0.4) H 09/18/22 15:16 Neut % (Auto) 61.6 % (45-73) 09/18/22 15:16 Lymph % (Auto) 22.7 % (20-40) 09/18/22 15:16 White % (Auto) 8.2 % (2-11) 09/18/22 15:16 Eos % (Auto) 3.6 % (0-4) 09/18/22 15:16 Baso % (Auto) 0.3 % (0-2) 09/18/22 15:16 Lymph # (Auto) 4.2 X10*3/uL (1.2-4.9) 09/18/22 15:16 White # (Auto) 1.5 X10*3/uL (0.1-1.2) H 09/18/22 15:16 Eos # (Auto) 0.7 X10*3/uL (0.0-0.4) H 09/18/22 15:16 Baso # (Auto) 0.1 X10*3/uL (0.0-0.2) 09/18/22 15:16 Abs Immat Gran (auto) 0.66 X10*3/uL (0.00-0.03) H 09/18/22 15:16 Absolute Neuts (auto) 11.4 x10*3/uL (2.0-8.3) H 09/18/22 15:16 Absolute Nucleated RBC 0.000 X10*3/uL (0.0-0.012) 09/18/22 15:16 Nucleated RBC % (auto) 0.0 /100WBC (0.0-0.2) 09/18/22 15:16 Sodium 140 mmol/L (135-145) 09/18/22 15:16 Potassium 3.9 mmol/L (3.3-5.1) 09/18/22 15:16 Chloride 106 mmol/L (96-108) 09/18/22 15:16 Carbon Dioxide 25 mmol/L (22-29) 09/18/22 15:16 Anion Gap 13 (12-20) 09/18/22 15:16 BUN 20 mg/dL (9-16) H 09/18/22 15:16 Creatinine 1.01 mg/dL (0.5-1.4) 09/18/22 15:16 Estim Creat Clear Calc TNP 09/18/22 15:16 Estimated GFR 54 09/18/22 15:16 Random Glucose 164 mg/dL (60-115) H 09/18/22 15:16 Calcium 8.8 mg/dL (8.4-10.2) 09/18/22 15:16 Iron 84 mcg/dL (30-160) 09/18/22 15:16 TIBC 279 mcg/dL (228-428) 09/18/22 15:16 % Saturation 30 % (15-50) 09/18/22 15:16 Unsat Iron Binding 195 ug/dL 09/18/22 15:16 Ferritin 198 ng/mL (10-250) 09/18/22 15:16 Total Bilirubin 0.4 mg/dL (0.0-1.0) 09/18/22 15:16 AST 29 U/L (5-31) 09/18/22 15:16 ALT 37 U/L (0-31) H 09/18/22 15:16 Alkaline Phosphatase 101 U/L (39-117) 09/18/22 15:16 Lactate Dehydrogenase 303 U/L (122-220) H 09/18/22 15:16 Total Protein 5.9 g/dL (6.5-8.0) L 09/18/22 15:16 Albumin 3.4 g/dL (3.5-5.0) L 09/18/22 15:16 Vitamin B12 282 pg/mL (200-900) 09/18/22 15:16 Folate 4.1 ng/mL (> or = 4.0) 09/18/22 15:16 Assessment and Plan Patient Active problem list reviewed?: Yes (1) Bladder cancer Problem details: Recurrent low-grade TURBT with induction immunotherapy 2020 2022 - high-grade bladder cancer Status: Acute Assessment and plan: A 72-year-old female, seen in office for microscopic hematuria and recurrent UTI. On cystoscopy, found to have a 2.5 to 3 cm lesion on the posterior wall upper half of the bladder, long smoking history. Plan for removal with bilateral retrograde. She has had abdominal CT, which was normal. Bladder, transurethral resection: - Low grade papillary urothelial carcinoma, non-invasive. - No muscularis propria identified. Bladder, transurethral resection/biopsy Type: Papillary urothelial carcinoma, non-invasive Histologic grade: Low grade Muscularis propria: Not identified Extent of invasion: Non-invasive Lymphovascular invasion: Not identified papillary urothelial Carcinoma, High grade, invades into lamina propria. LVI seen. High grade. Muscularis present. CT scan of the abdomen and pelvis from 08/08/22: 1. Large mass arising from the left bladder wall with direct extension into the prostate fossa, left internal iliac chain and the peritoneal cavity. 2. There is extensive retroperitoneal, pelvic and right iliac lymphadenopathy. 3. There are 2 large peritoneal masses in the right mid abdomen. 4. There is no hydronephrosis seen. 5. There is no radiopaque renal calculi or enhancing renal mass seen. 6. There is mild hepatomegaly with no focal lesion seen. 7. There is a small splenic artery aneurysm. 8. There is a right lower lobe pulmonary nodule which is stable compared to CT chest 03/21/2022. Patient has had TURBT x 3. She has had intravesical therapy: With BCG in 2018. With Gemzar in 2020. With mitomycin in 2022. She now seems to have wide spread disease, in the abdomen. l requested IR guided biopsy of right iliac adenopathy. I discussed with Dr. Beasley who proceeded with it on 10/22. Biopsy revealed: High-grade serous carcinoma. Consistent with dry drug worker versus peritoneal primary. PDL-1: 13. I discussed the case with the pathologist Dr. Siddiqui. She has compared it to the previous bladder cancer and it mujica differently, in terms of the immuno stains. She is going to perform the dry drug worker markers on the previous bladder cancer as well. 09/01/22: Bladder tumor is also c/w Serous Papillary Carcinoma. I shared the results with her today. Explained the concerns that this could be a dry drug worker primary. She tells me she has had total hysterectomy 25 years ago. She thought it was done here however looking back in the pathology archives, we did not find any results. PLAN: I will check with [facility] to see if she had the surgery done there. In the meantime I will set up an appointment at dry drug worker Oncology at [facility]. Will get a CT scan of the chest for staging. This is been scheduled for tomorrow. Report: Large multilobulated soft tissue mass arising from the bladder dome, measuring 9.2 x 6.2 x 8 cm. There is direct invasion/involvement of the rectosigmoid colon and vaginal cuff. There is likely metastatic involvement with multiple peritoneal masses and extensive retroperitoneal and gastrohepatic ligament lymphadenopathy. Disease progressionwith interval increase in size of pulmonary nodules. Will check baseline tumor markers as well: CEA 5.70, Ca 125: 2168. All her questions were answered to her satisfaction. She will return in a couple of weeks for a follow-up. She met with our case specialist as well. Thank you, Cc: Dr. Matthews. Dr. Ponce. - Time Spent With Patient Time Spent with Patient (in minutes): 30
[2022-11-03 15:05] VITALS: BMI 26.1
[2022-11-03 15:06] VITALS: BP 131/57; PULSE 99; RESP 16; TEMP 36.2; O2SAT 95
[2022-11-03 15:06] LABS: MANUAL DIFF FLAG NO
[2022-11-03 15:18] LABS: Basophils Absolute Auto 0.1 X10*3/uL (0.0-0.2); Basophils Percent Auto 0.7 % (0-2); Eosinophils Absolute Auto 0.3 X10*3/uL (0.0-0.4); Eosinophils Percent Auto 1.8 % (0-4); Hematocrit 36.8 % (37.0-47.0); Imm Gran Abs Auto 0.09 X10*3/uL (0.00-0.03); Imm Gran Pct Auto 0.6 % (0.0-0.4); Lymphocytes Absolute Auto 3.2 X10*3/uL (1.2-4.9); Mean Corpuscular HGB Conc 29.9 g/dl (31.0-35.0); Mean Corpuscular Volume 80.2 fL (80.0-98.0); Mean Platelet Volume 10.4 fL (9.4-12.3); Monocytes Absolute Auto 1.2 X10*3/uL (0.1-1.2); Monocytes Percent Auto 8.2 % (2-11); Neutrophils Absolute Auto 9.7 x10*3/uL (2.0-8.3); Neutrophils Percent Auto 66.7 % (45-73); Platelet Count 406 X10*3/uL (160-400); Red Blood Count 4.59 X10*6/uL (4.20-5.50); Red Cell Distribution Width 16.5 % (11.0-16.0); White Blood Count 14.6 X10*3/uL (4.8-10.8)
[2022-11-03 15:44] LABS: Alanine Aminotransferase 11 U/L (0-31); Albumin Level 3.8 g/dL (3.5-5.0); Alkaline Phosphatase 119 U/L (39-117); Anion Gap 14 (12-20); Aspartate Amino Transferase 23 U/L (5-31); Bilirubin Total 0.3 mg/dL (0.0-1.0); Blood Urea Nitrogen 10 mg/dL (9-16); Calcium 9.6 mg/dL (8.4-10.2); Carbon Dioxide 26 mmol/L (22-29); Chloride 104 mmol/L (96-108); Creatinine Clr Calc Pharmacy 48.1; Estimated Glomerular Filt Rate > 60; Glucose Random 194 mg/dL (60-115); Potassium 4.2 mmol/L (3.3-5.1); Sodium 140 mmol/L (135-145); Total Protein 7.3 g/dL (6.5-8.0)
--- NOTE | 2022-11-03 16:06 | MHC.HEMONC ---
Onc follow up with Dr. Waters. Labs obtained and reviewed. VSS. Medications reconciled. Patient to return in 3 weeks. Archana Miguelator to facilitate [facility] [employer] onc referral.
[2022-11-05 13:47] LABS: CA-125 2168 U/mL (<35)
--- NOTE | 2022-11-07 11:39 | MHC.HEMONC ---
Referral sent to [facility] at [facility] [place]
--- NOTE | 2022-11-14 14:43 | MHC.HEMONC ---
Patient is seeing Dr Robles at [facility] on 11/25/22 at 10 am as referral was sent this past Thursday.
--- NOTE | 2022-12-02 11:31 | PM.HEMONCPN ---
Medical Summary - Medical Summary Date of Service: 12/02/22 Chief complaint: Follow-up for: Serous papillary ovarian carcinoma. Primary Care Provider: Linda Matthews MD Medical Summary: DIAGNOSIS: 1. BLADDER CARCINOMA. CT 4B,CN3,PERL PROGRAMMER. STAGE IV A. 2. Serous papillary Tumor. Interval History Interval history: Dai Chakraborty is a 72 year old lady, here for a follow-up visit. She is not feeling well. Since she had the CT scan her system is messed up. She has been more constipated. She used to have Caris sized bowel movements now they are green beans sized pieces. Has pain in the right side of her abdomen. This is more of a cramping. He grades it at 5 on 1-10 scale. She is afraid to eat. She has been taking Tylenol for the pain. She lost a couple of lb. She has felt rather tired, lately. No fever chills or night sweats. She has headaches she gets migraines. Denies chest pain. She gets SOB, she has COPD. She feels rather bloated. Appetite is not good. She has lost weight. Denies any recent hematuria. She has increased frequency of micturition. Denes joint pain or muscle pain. She has leg weakness. She feels depressed. No skin rashes or pruritus. PRESENTING HISTORY: She was referred by Dr. Ponce on account of progressive bladder cancer. She was admitted to the hosptial recently, discharge summary: 72 yo F with a PMH of COPD, CAD, DM, HTN, active Tobacco use (4 to 6 cig/day), Cervical stenosis who presents to the ED with increasing shortness of breath, chest tightness for? 2 days? and not getting relief with Trelegy albuterol and DuoNeb. She has cough with? phlegm. She has no fever or chills. She has had no inpatient admission for more than a year.?Work up in ED: no PNA on CXR, nl WBC, no hypoxia. Treated with Duoneb, IV Solu-medrol, magneseium and Ceftriaxone. Course: Patient [place] [facility] [place] on ceftriaxone and azithromycin. She was also started on pulse dose Solu-Medrol. DuoNebs q.4 hours while awake; slow to respond to therapy. She felt better and left to return to home on O2. At this point she is medically acceptable for discharge will be discharged on a course of Ceftin and a prednisone taper. She can follow-up with PCP in office in 2 weeks PAST MEDICAL HISTORY: She was initially diagnosed with Bladder carcinoma in 2019. On cystoscopy, found to have a 2.5 to 3 cm lesion on the posterior wall upper half of the bladder, long smoking history. Plan for removal with bilateral retrograde. She has had abdominal CT, which was normal. Bladder, transurethral resection: - Low grade papillary urothelial carcinoma, non-invasive. - No muscularis propria identified. Bladder, transurethral resection/biopsy Type: Papillary urothelial carcinoma, non-invasive Histologic grade: Low grade Muscularis propria: Not identified Extent of invasion: Non-invasive Lymphovascular invasion: Not identified. Discussed TURBT findings: High-grade invasive bladder cancer with LVI. CT scan of the abdomen and pelvis from 08/08/22: 1. Large mass arising from the left bladder wall with direct extension into the prostate fossa, left internal iliac chain and the peritoneal cavity. 2. There is extensive retroperitoneal, pelvic and right iliac lymphadenopathy. 3. There are 2 large peritoneal masses in the right mid abdomen. 4. There is no hydronephrosis seen. 5. There is no radiopaque renal calculi or enhancing renal mass seen. 6. There is mild hepatomegaly with no focal lesion seen. 7. There is a small splenic artery aneurysm. 8. There is a right lower lobe pulmonary nodule which is stable compared to CT chest 03/21/2022. Anterior abdominal wall - left upper quadrant, peritoneal mass CT CHEST from March, revealed: * Moderate pulmonary emphysema. * No acute pulmonary disease. No evidence of pulmonary embolism. * A few small stable pulmonary nodules are detected. No new lung nodule, pulmonary mass or pleural effusion. * Atherosclerotic disease of coronary arteries and thoracic aorta without aortic aneurysm. * Progressive enlargement of a lymph node in the upper abdomen, likely from metastatic disease process. Bladder cancer low-grade recurrence (early 2020) underwent immunotherapy induction Bladder cancer was initially diagnosed during evaluation for gross hematuria - 06/29 Dr Ponce. Bladder intervention(s) performed 07/27 , TURBT, , Ta noninvasive papillary carcinoma, Papillary lesion of low grade malignant potential 08/27 BCG 3 induction due to other risk factors. - 05/31 TURBT with gemcitabine - low-grade bladder cancer - Induction with 6 weeks Gemcitabine Abdomen therapy - 07/01 6 weeks gemcitabine induction, 09/28 three-week gemcitabine boost - 08/31 TURBT posterior mid bladder high-grade invasive with LVI Recurrence Risk per EORTC Low Risk. Bladder cancer risk factors Organic Solvent exposure No smoking Yes - heavy smoker - greater than 50 year pack per day Prior Cystoscopy 11/26 , Negative 06/30 NAD, 01/28 1 cm posterior wall lesion. 09/28 NAD, 8 NAD, 08/29 NAD Prior Cytology 08/27 , Negative for malignancy, 10 NAD Prior Imaging 05/29 CT scan with contrast, Bladder lesion 1,6 cm - 05/[address] with known nodules - 07/31 CT Urogram - There is bulky lymphadenopathy in the left internal iliac chain and likely exophytic mass arising off the left bladder with direct extension to the left bladder wall, the peritoneal and into the prostate fossa Planned treatment cystoscopy 6 months - goes to [place] for winter. PFSH: Medical History: Anxiety CAD (coronary artery disease) Cervical stenosis of spine COPD (chronic obstructive pulmonary disease) Depression Diabetic polyneuropathy associated with type 2 diabetes mellitus DM type 2 (diabetes mellitus, type 2) Elevated BUN History of smoking at least 1 pack per day for at least 30 years HTN (hypertension) FAMILY HISTORY: Younger sister has breast cancer. 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 She is . She had 3 children. She used to smoke 2 packs a day quit now down to 4 cigarettes a day. Denies alcohol. Review of Systems - Constitutional Reports system reviewed and no additional complaints, except as documented, Reports anorexia, Reports fatigue, Reports lack of energy, Reports malaise, Reports weight loss, Denies fever(s) - Eyes Reports system reviewed and no additional complaints, except as documented - ENT Reports system reviewed and no additional complaints, except as documented - Cardiovascular Reports system reviewed and no additional complaints, except as documented - Respiratory Reports no additional respiratory complaints - Gastrointestinal Reports system reviewed and no additional complaints, except as documented - Genitourinary Reports no additional female genitourinary complaints - Musculoskeletal Reports system reviewed and no additional complaints, except as documented - Integumentary/Breasts Skin/Breast: Reports no additional skin complaints - Neurologic Reports system reviewed and no additional complaints, except as documented, Reports weakness - Psychiatric Reports system reviewed and no additional complaints, except as documented - Endocrine Reports no additional endocrine complaints - Hematologic/Lymphatic Reports system reviewed and no additional complaints, except as documented - Allergic/Immunologic Reports system reviewed and no additional complaints, except as documented [facility] Medical History: Medical History (Last Reviewed 12/02/22 @ 11:35 by Darrick Olivares) Anxiety CAD (coronary artery disease) Cervical stenosis of spine COPD (chronic obstructive pulmonary disease) Depression Diabetic polyneuropathy associated with type 2 diabetes mellitus DM type 2 (diabetes mellitus, type 2) Elevated BUN History of smoking at least 1 pack per day for at least 30 years HTN (hypertension) Hyperlipidemia Left leg swelling Low vitamin D level Mass of peritoneum Migraine headache Neck pain Nonalcoholic steatohepatitis (CHRISTINE) Pulmonary nodule 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 Smoker Vertigo Vitamin B 12 deficiency Vitamin B12 deficiency Functional capacity: uses cane/walker Patient : No Family History: Family History (Last Reviewed 12/02/22 @ 11:35 by Darrick Olivares) Mother CVD (cardiovascular disease) CVA (cerebral vascular accident) Father CVD (cardiovascular disease) Sister Breast cancer Family/Other Breast cancer Surgical History: Surgical History (Last Reviewed 12/02/22 @ 11:35 by Darrick Olivares) Fusion of spine of cervical region History of carpal tunnel release History of heart artery stent History of hysterectomy Social History: Social History (Last Reviewed 12/02/22 @ 11:35 by Darrick Olivares) Living Situation History: Household Members: Other Household Members Other:: roommate Housing: House Do you presently have visiting nurse or other home services: No Alcohol History Details: 1. How often do you have a drink containing alcohol?: a. Never Tobacco History: Patient Tobacco Use Status: Current everyday Tobacco Tobacco use type: Cigarette Years Smoked: 62 yrs e-Cigarette/Vaping Use: Never Used Second Hand Smoke Exposure: No Domestic Abuse History: Have you been hit, kicked, punched, or otherwise hurt by someone within the past year? 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 Performance Status ECOG Performance Status: 1 Home Medications and Allergies Home Medications Medication Instructions Recorded Confirmed Type multivitamin (Daily Multi-Vitamin 1 tab PO BEDTIME 12/25/20 11/03/22 History tablet) aspirin 81 mg chewable tablet 1 tab PO BEDTIME 09/11/21 11/03/22 History atorvastatin 80 mg tablet 80 mg PO BEDTIME 09/11/21 11/03/22 History nitroglycerin 0.4 mg sublingual 1 tab sublingual NEEDED angina 09/11/21 11/03/22 History tablet isosorbide mononitrate 30 mg 30 mg PO DAILY 09/25/21 11/03/22 History tablet,extended release 24 hr zolpidem 5 mg tablet 5 mg PO BEDTIME PRN Insomnia 11/06/21 11/03/22 History amlodipine 5 mg tablet 5 mg PO DAILY 11/20/21 11/03/22 History lancets 33 gauge (TRUEplus Lancets) #100 ea 11/20/21 11/03/22 History bupropion HCl 150 mg 24 hr tablet, 150 mg PO QAM 09/10/22 11/03/22 History extended release metformin 750 mg tablet,extended 750 mg PO DAILY 09/10/22 11/03/22 History release 24 hr Oxygen Home Use 09/23/22 11/03/22 History epinephrine 0.125 mg/actuation 1 puff inhalation Q4H PRN Wheezing 09/23/22 11/03/22 History aerosol inhaler (Primatene Mist) Allergies Allergy/AdvReac Type Severity Reaction Status Date / Time amoxicillin [AMOXICILLIN] Allergy Mild DIARRHEA Verified 12/02/22 11:35 Darvocet A500 Allergy Unknown upset Verified 12/02/22 11:35 stomach melatonin Allergy Unknown Nausea and Verified 12/02/22 11:35 Vomiting oxycodone [From PERCOCET] Allergy Unknown NAUSEA,VOMI Verified 12/02/22 11:35 TING propoxyphene Allergy Unknown Stomach Verified 12/02/22 11:35 Upset influenza virus vaccine, AdvReac Intermediate NAUSEA,DIAR Verified 12/02/22 11:35 specific WU [FLU VACCINE] lactose [LACTOSE] AdvReac Intermediate GI UPSET Verified 12/02/22 11:35 metronidazole [From FLAGYL] AdvReac Intermediate NAUSEA & Verified 12/02/22 11:35 VOMITING Sulfa (Sulfonamide AdvReac Intermediate EYE DROPS Verified 12/02/22 11:35 Antibiotics) (ONLY)-IRITIS Exam Vital signs: Vital Signs Temp 97.2 F 11/03/22 15:06 Pulse 99 11/03/22 15:06 Resp 16 11/03/22 15:06 BP 131/57 L 11/03/22 15:06 Pulse Ox 95 11/03/22 15:06 O2 Del Method Room Air 11/03/22 15:06 Weight 62.6 kg BMI result Body Mass Index 26.1 - Constitutional Present: no acute distress - Routine HEENT Exam Head: Present: atraumatic, normal inspection Eye: Present: normal appearance ENT: Present: mucous membranes moist - Routine Neck Exam Present: full ROM - Routine Respiratory Exam Present: CTAB - Routine Cardiovascular Exam Cardiovascular: Present: RRR, S1, S2 - Routine Abdominal Exam Present: nontender - Routine Rectal Exam Patient deferred: digital exam - Routine Extremities Exam Present: nontender - Routine Back/Spine/Pelvis Exam Back/Spine: Present: full ROM - Routine Skin Exam Present: intact - Routine Neurological Exam Present: alert, oriented X3 - Routine Psychiatric Exam Present: normal affect Data - Labs CBC & Chem 7: 12/02/22 11:47 12/02/22 11:47 Assessment and Plan Patient Active problem list reviewed?: Yes (1) Bladder cancer Problem details: Recurrent low-grade TURBT with induction immunotherapy 2020 2022 - high-grade bladder cancer Status: Acute Assessment and plan: A 72-year-old female, seen in office for microscopic hematuria and recurrent UTI. On cystoscopy, found to have a 2.5 to 3 cm lesion on the posterior wall upper half of the bladder, long smoking history. Plan for removal with bilateral retrograde. She has had abdominal CT, which was normal. Bladder, transurethral resection: - Low grade papillary urothelial carcinoma, non-invasive. - No muscularis propria identified. Bladder, transurethral resection/biopsy Type: Papillary urothelial carcinoma, non-invasive Histologic grade: Low grade Muscularis propria: Not identified Extent of invasion: Non-invasive Lymphovascular invasion: Not identified papillary urothelial Carcinoma, High grade, invades into lamina propria. LVI seen. High grade. Muscularis present. CT scan of the abdomen and pelvis from 08/08/22: 1. Large mass arising from the left bladder wall with direct extension into the prostate fossa, left internal iliac chain and the peritoneal cavity. 2. There is extensive retroperitoneal, pelvic and right iliac lymphadenopathy. 3. There are 2 large peritoneal masses in the right mid abdomen. 4. There is no hydronephrosis seen. 5. There is no radiopaque renal calculi or enhancing renal mass seen. 6. There is mild hepatomegaly with no focal lesion seen. 7. There is a small splenic artery aneurysm. 8. There is a right lower lobe pulmonary nodule which is stable compared to CT chest 03/21/2022. Patient has had TURBT x 3. She has had intravesical therapy: With BCG in 2018. With Gemzar in 2020. With mitomycin in 2022. She now seems to have wide spread disease, in the abdomen. l requested IR guided biopsy of right iliac adenopathy. I discussed with Dr. Beasley who proceeded with it on 10/22. Biopsy revealed: High-grade serous carcinoma. Consistent with manager of enterprise versus peritoneal primary. PDL-1: 13. I discussed the case with the pathologist Dr. Siddiqui. She has compared it to the previous bladder cancer and it mujica differently, in terms of the immuno stains. She is going to perform the manager of enterprise markers on the previous bladder cancer as well. 09/01/22: Bladder tumor is also c/w Serous Papillary Carcinoma. I shared the results with her today. Explained the concerns that this could be a manager of enterprise primary. She tells me she has had total hysterectomy 25 years ago. She thought it was done here however looking back in the pathology archives, we did not find any results. I checked with [facility] to see if she had the surgery done there. CT scan of the chest for staging. This revealed: Large multilobulated soft tissue mass arising from the bladder dome, measuring 9.2 x 6.2 x 8 cm. There is direct invasion/involvement of the rectosigmoid colon and vaginal cuff. There is likely metastatic involvement with multiple peritoneal masses and extensive retroperitoneal and gastrohepatic ligament lymphadenopathy. Disease progressionwith interval increase in size of pulmonary nodules. l checked baseline tumor markers as well: CEA 5.70, Ca 125: 2168. PLAN: I have set up an appointment at [facility]. This is for December 12. Most likely she would be a candidate for palliative chemotherapy with carboplatin, Taxol and pembrolizumab. Meanwhile I gave her a prescription for oxycodone for the pain and Senokot for constipation. She needs to get her constipation relieved and then start the pain medicine. She will return in a couple of weeks for a follow-up. All her questions were answered to her satisfaction. Thank you, Cc: Dr. Matthews. Dr. Ponce. - Time Spent With Patient Time Spent with Patient (in minutes): 30
[2022-12-02 11:42] VITALS: BP 110/59; PULSE 101; O2SAT 95
[2022-12-02 11:48] LABS: MANUAL DIFF FLAG NO
[2022-12-02 12:08] LABS: Basophils Absolute Auto 0.1 X10*3/uL (0.0-0.2); Basophils Percent Auto 0.9 % (0-2); Eosinophils Absolute Auto 0.3 X10*3/uL (0.0-0.4); Eosinophils Percent Auto 2.5 % (0-4); Hematocrit 38.3 % (37.0-47.0); Hemoglobin 11.4 g/dl (12.0-16.0); Imm Gran Abs Auto 0.06 X10*3/uL (0.00-0.03); Imm Gran Pct Auto 0.5 % (0.0-0.4); Lymphocytes Absolute Auto 2.8 X10*3/uL (1.2-4.9); Lymphocytes Percent Auto 23.6 % (20-40); Mean Corpuscular HGB Conc 29.8 g/dl (31.0-35.0); Mean Corpuscular Hemoglobin 23.4 pg (27.0-33.0); Mean Corpuscular Volume 78.6 fL (80.0-98.0); Mean Platelet Volume 10.3 fL (9.4-12.3); Monocytes Absolute Auto 0.9 X10*3/uL (0.1-1.2); Monocytes Percent Auto 7.9 % (2-11); Neutrophils Absolute Auto 7.6 x10*3/uL (2.0-8.3); Neutrophils Percent Auto 64.6 % (45-73); Platelet Count 397 X10*3/uL (160-400); Red Blood Count 4.87 X10*6/uL (4.20-5.50); Red Cell Distribution Width 16.2 % (11.0-16.0); White Blood Count 11.8 X10*3/uL (4.8-10.8)
[2022-12-02 12:27] LABS: Alanine Aminotransferase 15 U/L (0-31); Albumin Level 3.8 g/dL (3.5-5.0); Alkaline Phosphatase 137 U/L (39-117); Anion Gap 11 (12-20); Aspartate Amino Transferase 29 U/L (5-31); Bilirubin Total 0.2 mg/dL (0.0-1.0); Blood Urea Nitrogen 10 mg/dL (9-16); Calcium 9.6 mg/dL (8.4-10.2); Carbon Dioxide 28 mmol/L (22-29); Chloride 101 mmol/L (96-108); Creatinine Clr Calc Pharmacy 50.4; Estimated Glomerular Filt Rate > 60; Glucose Random 169 mg/dL (60-115); Potassium 4.5 mmol/L (3.3-5.1); Sodium 135 mmol/L (135-145); Total Protein 7.7 g/dL (6.5-8.0)
--- NOTE | 2022-12-02 12:43 | MHC.HEMONCMA ---
patient seen today for ovary cancer, vss, labs, following up with provider in 1 month
[2022-12-04 13:53] LABS: CA-125 2562 U/mL (<35)
[2022-12-25 10:31] VITALS: PULSE 99; O2SAT 96
--- NOTE | 2022-12-25 10:47 | PM.HEMONCPN ---
Medical Summary - Medical Summary Date of Service: 12/25/22 Chief complaint: Follow-up for: Serous ovarian carcinoma. Primary Care Provider: Linda Matthews MD Medical Summary: DIAGNOSIS: 1. BLADDER CARCINOMA. 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 2. Serous papillary Tumor. Interval History Interval history: Dai Chakraborty is a 72 year old lady, here for a follow-up visit. She tells me she feels awful. She took the oxycodone but that did a job on her. It caused her bowel movements to get smaller. She does not wish to take it again. She has been taking Tylenol for the pain. She has pain in the right side of her abdomen. This is more of an intermittant cramping. Grades it at 5 on 1-10 scale. She lost a couple of lb. She has felt rather tired, lately. No fever chills or night sweats. She has headaches she gets migraines. Denies chest pain. She gets SOB, she has COPD. She feels rather bloated. Appetite is not good. She has lost weight. She has been taking Tylenol for the pain. Denies any recent hematuria. She has increased frequency of micturition. Denies joint pain or muscle pain. She has leg weakness. She feels depressed. No skin rashes or pruritus. PRESENTING HISTORY: She was referred by Dr. Ponce on account of progressive bladder cancer. She was admitted to the hosptial recently, discharge summary: 72 yo F with a PMH of COPD, CAD, DM, HTN, active Tobacco use (4 to 6 cig/day), Cervical stenosis who presents to the ED with increasing shortness of breath, chest tightness for? 2 days? and not getting relief with Trelegy albuterol and DuoNeb. She has cough with? phlegm. She has no fever or chills. She has had no inpatient admission for more than a year.?Work up in ED: no PNA on CXR, nl WBC, no hypoxia. Treated with Duoneb, IV Solu-medrol, magneseium and Ceftriaxone. Course: Patient admitted to [facility] thin started on ceftriaxone and azithromycin. She was also started on pulse dose Solu-Medrol. DuoNebs q.4 hours while awake; slow to respond to therapy. She felt better and left to return to home on O2. At this point she is medically acceptable for discharge will be discharged on a course of Ceftin and a prednisone taper. She can follow-up with PCP in office in 2 weeks PAST MEDICAL HISTORY: She was initially diagnosed with Bladder carcinoma in 2019. On cystoscopy, found to have a 2.5 to 3 cm lesion on the posterior wall upper half of the bladder, long smoking history. Plan for removal with bilateral retrograde. She has had abdominal CT, which was normal. Bladder, transurethral resection: - Low grade papillary urothelial carcinoma, non-invasive. - No muscularis propria identified. Bladder, transurethral resection/biopsy Type: Papillary urothelial carcinoma, non-invasive Histologic grade: Low grade Muscularis propria: Not identified Extent of invasion: Non-invasive Lymphovascular invasion: Not identified. Discussed TURBT findings: High-grade invasive bladder cancer with LVI. CT scan of the abdomen and pelvis from 08/08/22: 1. Large mass arising from the left bladder wall with direct extension into the prostate fossa, left internal iliac chain and the peritoneal cavity. 2. There is extensive retroperitoneal, pelvic and right iliac lymphadenopathy. 3. There are 2 large peritoneal masses in the right mid abdomen. 4. There is no hydronephrosis seen. 5. There is no radiopaque renal calculi or enhancing renal mass seen. 6. There is mild hepatomegaly with no focal lesion seen. 7. There is a small splenic artery aneurysm. 8. There is a right lower lobe pulmonary nodule which is stable compared to CT chest 03/21/2022. Anterior abdominal wall - left upper quadrant, peritoneal mass CT CHEST from March, revealed: * Moderate pulmonary emphysema. * No acute pulmonary disease. No evidence of pulmonary embolism. * A few small stable pulmonary nodules are detected. No new lung nodule, pulmonary mass or pleural effusion. * Atherosclerotic disease of coronary arteries and thoracic aorta without aortic aneurysm. * Progressive enlargement of a lymph node in the upper abdomen, likely from metastatic disease process. Bladder cancer low-grade recurrence (early 2020) underwent immunotherapy induction Bladder cancer was initially diagnosed during evaluation for gross hematuria - 06/29 Dr Ponce. Bladder intervention(s) performed 07/27 , TURBT, , Ta noninvasive papillary carcinoma, Papillary lesion of low grade malignant potential 08/27 BCG 3 induction due to other risk factors. - 05/31 TURBT with gemcitabine - low-grade bladder cancer - Induction with 6 weeks Gemcitabine Abdomen therapy - 07/01 6 weeks gemcitabine induction, 09/28 three-week gemcitabine boost - 08/31 TURBT posterior mid bladder high-grade invasive with LVI Recurrence Risk per EORTC Low Risk. Bladder cancer risk factors Organic Solvent exposure No smoking Yes - heavy smoker - greater than 50 year pack per day Prior Cystoscopy 11/26 , Negative 06/30 NAD, 01/28 1 cm posterior wall lesion. 09/28 NAD, 12/29 NAD, 08/29 NAD Prior Cytology 08/27 , Negative for malignancy, 02/28 NAD Prior Imaging 05/29 CT scan with contrast, Bladder lesion 1,6 cm - 05/[address] with known nodules - 07/31 CT Urogram - There is bulky lymphadenopathy in the left internal iliac chain and likely exophytic mass arising off the left bladder with direct extension to the left bladder wall, the peritoneal and into the prostate fossa Planned treatment cystoscopy 6 months - goes to [place] for winter. PFSH: Medical History: Anxiety CAD (coronary artery disease) Cervical stenosis of spine COPD (chronic obstructive pulmonary disease) Depression Diabetic polyneuropathy associated with type 2 diabetes mellitus DM type 2 (diabetes mellitus, type 2) Elevated BUN History of smoking at least 1 pack per day for at least 30 years HTN (hypertension) FAMILY HISTORY: Younger sister has breast cancer. 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 She is . She had 3 children. She used to smoke 2 packs a day quit now down to 4 cigarettes a day. Denies alcohol. Review of Systems - Constitutional Reports no additional constitutional complaints, Denies fever(s), Reports weakness, Denies weight loss - Eyes Reports no additional eye complaints - ENT Reports no additional ear, nose, mouth, and throat complaints - Cardiovascular Reports no additional cardiovascular complaints - Respiratory Reports no additional respiratory complaints - Gastrointestinal Reports no additional gastrointestinal complaints - Genitourinary Reports no additional female genitourinary complaints - Musculoskeletal Reports no additional musculoskeletal complaints - Integumentary/Breasts Skin/Breast: Reports no additional skin complaints - Neurologic Reports no additional neurologic complaints, Reports weakness - Psychiatric Reports no additional psychiatric complaints - Endocrine Reports no additional endocrine complaints - Hematologic/Lymphatic Reports no additional hematologic/lymphatic complaints - Allergic/Immunologic Reports no additional allergic/immunologic complaints ON LICENSE OF [facility] Medical History: Medical History (Last Reviewed 12/25/22 @ 10:32 by Darrick Olivares) Anxiety CAD (coronary artery disease) Cervical stenosis of spine COPD (chronic obstructive pulmonary disease) Depression Diabetic polyneuropathy associated with type 2 diabetes mellitus DM type 2 (diabetes mellitus, type 2) Elevated BUN History of smoking at least 1 pack per day for at least 30 years HTN (hypertension) Hyperlipidemia Left leg swelling Low vitamin D level Mass of peritoneum Migraine headache Neck pain Nonalcoholic steatohepatitis (CHRISTINE) Pulmonary nodule 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 Smoker Vertigo Vitamin B 12 deficiency Vitamin B12 deficiency Functional capacity: uses cane/walker Family History: Family History (Last Reviewed 12/25/22 @ 10:32 by Darrick Olivares) Mother CVD (cardiovascular disease) CVA (cerebral vascular accident) Father CVD (cardiovascular disease) Sister Breast cancer Family/Other Breast cancer Surgical History: Surgical History (Last Reviewed 12/25/22 @ 10:32 by Darrick Olivares) Fusion of spine of cervical region History of carpal tunnel release History of heart artery stent History of hysterectomy Social History: Social History (Last Reviewed 12/25/22 @ 10:32 by Darrick Olivares) Living Situation History: Household Members: Other Household Members Other:: roommate Housing: House Do you presently have visiting nurse or other home services: No Alcohol History Details: 1. How often do you have a drink containing alcohol?: a. Never Tobacco History: Patient Tobacco Use Status: Current everyday Tobacco Tobacco use type: Cigarette Cigarette Packs Per Day: 0.5 Years Smoked: 62 yrs e-Cigarette/Vaping Use: Never Used Second Hand Smoke Exposure: No Domestic Abuse History: Have you been hit, kicked, punched, or otherwise hurt by someone within the past year? 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 Performance Status ECOG Performance Status: 0 Home Medications and Allergies Home Medications Medication Instructions Recorded Confirmed Type multivitamin (Daily Multi-Vitamin 1 tab PO BEDTIME 12/25/20 12/25/22 History tablet) aspirin 81 mg chewable tablet 1 tab PO BEDTIME 09/11/21 12/25/22 History atorvastatin 80 mg tablet 80 mg PO BEDTIME 09/11/21 12/25/22 History nitroglycerin 0.4 mg sublingual 1 tab sublingual NEEDED angina 09/11/21 12/25/22 History tablet isosorbide mononitrate 30 mg 30 mg PO DAILY 09/25/21 12/25/22 History tablet,extended release 24 hr zolpidem 5 mg tablet 5 mg PO BEDTIME PRN Insomnia 11/06/21 12/25/22 History lancets 33 gauge (TRUEplus Lancets) #100 ea 11/20/21 12/25/22 History bupropion HCl 150 mg 24 hr tablet, 150 mg PO QAM 09/10/22 12/25/22 History extended release metformin 750 mg tablet,extended 750 mg PO DAILY 09/10/22 12/25/22 History release 24 hr Oxygen Home Use 09/23/22 12/25/22 History epinephrine 0.125 mg/actuation 1 puff inhalation Q4H PRN Wheezing 09/23/22 12/25/22 History aerosol inhaler (Primatene Mist) Allergies Allergy/AdvReac Type Severity Reaction Status Date / Time amoxicillin [AMOXICILLIN] Allergy Mild DIARRHEA Verified 12/25/22 10:32 Darvocet A500 Allergy Unknown upset Verified 12/25/22 10:32 stomach melatonin Allergy Unknown Nausea and Verified 12/25/22 10:32 Vomiting oxycodone [From PERCOCET] Allergy Unknown NAUSEA,VOMI Verified 12/25/22 10:32 TING propoxyphene Allergy Unknown Stomach Verified 12/25/22 10:32 Upset influenza virus vaccine, AdvReac Intermediate NAUSEA,DIAR Verified 12/25/22 10:32 specific WU [FLU VACCINE] lactose [LACTOSE] AdvReac Intermediate GI UPSET Verified 12/25/22 10:32 metronidazole [From FLAGYL] AdvReac Intermediate NAUSEA & Verified 12/25/22 10:32 VOMITING Sulfa (Sulfonamide AdvReac Intermediate EYE DROPS Verified 12/25/22 10:32 Antibiotics) (ONLY)-IRITIS Exam Vital signs: Vital Signs Temp 97.2 F 11/03/22 15:06 Pulse 99 12/25/22 10:31 Resp 16 11/03/22 15:06 BP 110/59 L 12/02/22 11:42 Pulse Ox 96 12/25/22 10:31 O2 Del Method Room Air 12/25/22 10:31 Weight 62.6 kg BMI result Body Mass Index 26.1 - Constitutional Present: no acute distress - Routine HEENT Exam Head: Present: atraumatic, normal inspection Eye: Present: normal appearance ENT: Present: mucous membranes moist - Routine Neck Exam Present: full ROM - Routine Respiratory Exam Present: CTAB - Routine Cardiovascular Exam Cardiovascular: Present: RRR, S1, S2 - Routine Abdominal Exam Present: nontender - Routine Rectal Exam Patient deferred: digital exam - Routine Extremities Exam Present: nontender - Routine Back/Spine/Pelvis Exam Back/Spine: Present: full ROM - Routine Skin Exam Present: intact - Routine Neurological Exam Present: alert, oriented X3 - Routine Psychiatric Exam Present: normal affect Data - Labs CBC & Chem 7: 12/02/22 11:47 12/02/22 11:47 Assessment and Plan Patient Active problem list reviewed?: Yes (1) Bladder cancer Problem details: Recurrent low-grade TURBT with induction immunotherapy 2020 2022 - high-grade bladder cancer Status: Acute Assessment and plan: A 72-year-old female, seen in office for microscopic hematuria and recurrent UTI. On cystoscopy, found to have a 2.5 to 3 cm lesion on the posterior wall upper half of the bladder, long smoking history. Plan for removal with bilateral retrograde. She has had abdominal CT, which was normal. Bladder, transurethral resection: - Low grade papillary urothelial carcinoma, non-invasive. - No muscularis propria identified. Bladder, transurethral resection/biopsy Type: Papillary urothelial carcinoma, non-invasive Histologic grade: Low grade Muscularis propria: Not identified Extent of invasion: Non-invasive Lymphovascular invasion: Not identified papillary urothelial Carcinoma, High grade, invades into lamina propria. LVI seen. High grade. Muscularis present. CT scan of the abdomen and pelvis from 08/08/22: 1. Large mass arising from the left bladder wall with direct extension into the prostate fossa, left internal iliac chain and the peritoneal cavity. 2. There is extensive retroperitoneal, pelvic and right iliac lymphadenopathy. 3. There are 2 large peritoneal masses in the right mid abdomen. 4. There is no hydronephrosis seen. 5. There is no radiopaque renal calculi or enhancing renal mass seen. 6. There is mild hepatomegaly with no focal lesion seen. 7. There is a small splenic artery aneurysm. 8. There is a right lower lobe pulmonary nodule which is stable compared to CT chest 03/21/2022. Patient has had TURBT x 3. She has had intravesical therapy: With BCG in 2018. With Gemzar in 2020. With mitomycin in 2022. She now seems to have wide spread disease, in the abdomen. l requested IR guided biopsy of right iliac adenopathy. I discussed with Dr. Beasley who proceeded with it on 10/22. Biopsy revealed: High-grade serous carcinoma. Consistent with premium auditor versus peritoneal primary. PDL-1: 13. I discussed the case with the pathologist Dr. Sididqui. She has compared it to the previous bladder cancer and it mujica differently, in terms of the immuno stains. She is going to perform the premium auditor markers on the previous bladder cancer as well. 09/01/22: Bladder tumor is also c/w Serous Papillary Carcinoma. I shared the results with her today. Explained the concerns that this could be a premium auditor primary. She tells me she has had total hysterectomy 25 years ago. She thought it was done here however looking back in the pathology archives, we did not find any results. I checked with [facility] to see if she had the surgery done there. CT scan of the chest for staging. This revealed: Large multilobulated soft tissue mass arising from the bladder dome, measuring 9.2 x 6.2 x 8 cm. There is direct invasion/involvement of the rectosigmoid colon and vaginal cuff. There is likely metastatic involvement with multiple peritoneal masses and extensive retroperitoneal and gastrohepatic ligament lymphadenopathy. Disease progressionwith interval increase in size of pulmonary nodules. l checked baseline tumor markers as well: CEA 5.70, Ca 125: 2168. She saw premium auditor Oncology at [facility]. on December 12. They have recommended new adjuvant chemotherapy with 3 cycles of carbo Taxol and bevacizumab. This would be followed by surgery, possible and then another 3 cycles of chemotherapy. She prefers to have her chemotherapy here. PLAN: Will set up her treatment. She will come in for chemotherapy teaching. Will recheck her imaging since it has been more than 6 weeks. She will return in a couple of weeks for a follow-up. All her questions were answered to her satisfaction. Thank you, Cc: Dr. Matthews. Dr. Ponce. - Time Spent With Patient Time Spent with Patient (in minutes): 25
--- NOTE | 2022-12-29 14:21 | MHC.HEMONC ---
I spoke with pt dtr. She is aware of CT appt tomorrow at 2:30. Pt will come here fo teach while she is drinking prep. NPO for 3 hrs before scan.
--- NOTE | 2022-12-30 09:01 | HO.HEMONCPA ---
NO PA NEEDED FOR CHEMO DRUGS EMEND,AVASTIN,TAXOL,CARBOPLATIN AND NEULASTA COVERED UNDER MEDICARE PART B BENEFITS
--- NOTE | 2022-12-30 15:34 | MHC.HEMONC ---
Chemo teaching done with pt and pts daughter Lizabeth. Discussed treatment schedule, meds, side effects. Pts and daughters questions answered. Scheduled to start chemo on Thu01/07/23. Calendar given
[2023-01-15 08:34] VITALS: BP 123/67; PULSE 84; RESP 18; TEMP 36.9; O2SAT 97; BMI 23.7
--- NOTE | 2023-01-15 09:09 | P.PNHO-ONC_ITS ---
Medical Summary - Medical Summary Date of Service: 01/15/23 Chief complaint: Follow-up for: Serous Papillary Carcinoma. Primary Care Provider: Linda Matthews MD Medical Summary: DIAGNOSIS: 1. BLADDER CARCINOMA. 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 2. Serous papillary Tumor. Interval History Interval history: Dai Chakraborty is a 72 year old lady, here for a follow-up visit. She tells me she was in house between 01/01 in 01/07. Discharge summary: 72 year old female with advanced metastatic bladder cancer who was admitted with sepsis, pneumonia, COPD exacberation, possible UTI. She has Bacteroides thetaiotaomicron bacteremia. ID was concerned for possible colovesical fistrula? and recommends IV Ceftriaxone and Flagyl for possible 14 days. She was evaluated by Surgery? and Urology and there is no evidence of? colovesicular fistual. CT show no bladder air. To complete 14 days of Ceftriaxone and Falgyl, midline is inserted for IV Ceftriaxone and will get PO Flagyl. COPD exacerbation, treated with steroid and bronchodialtors She feels a bit better however she is still on IV antibiotics till Thursday. She feels very tired. No further chills nor fever. She has headaches she gets migraines. Denies chest pain. She gets SOB, she has COPD. She has pain in the right side of her abdomen. This is more of an intermittant cramping. Grades it at 5 on 1-10 scale. She lost a couple of lb. She feels rather bloated. Appetite is not good. She has lost weight. She has been taking Tylenol for the pain. Denies any recent hematuria. She has increased frequency of micturition. Denies joint pain or muscle pain. She has leg weakness. She feels depressed. No skin rashes or pruritus. PRESENTING HISTORY: She was referred by Dr. Ponce on account of progressive bladder cancer. She was admitted to the hosptial recently, discharge summary: 72 yo F with a PMH of COPD, CAD, DM, HTN, active Tobacco use (4 to 6 cig/day), Cervical stenosis who presents to the ED with increasing shortness of breath, chest tightness for? 2 days? and not getting relief with Trelegy albuterol and DuoNeb. She has cough with? phlegm. She has no fever or chills. She has had no inpatient admission for more than a year.?Work up in ED: no PNA on CXR, nl WBC, no hypoxia. Treated with Duoneb, IV Solu-medrol, magneseium and Ceftriaxone. Course: Patient admitted to [facility] started on ceftriaxone and azithromycin. She was also started on pulse dose Solu-Medrol. DuoNebs q.4 hours while awake; slow to respond to therapy. She felt better and left to return to home on O2. At this point she is medically acceptable for discharge will be discharged on a course of Ceftin and a prednisone taper. She can follow-up with PCP in office in 2 weeks PAST MEDICAL HISTORY: She was initially diagnosed with Bladder carcinoma in 2019. On cystoscopy, found to have a 2.5 to 3 cm lesion on the posterior wall upper half of the bladder, long smoking history. Plan for removal with bilateral retrograde. She has had abdominal CT, which was normal. Bladder, transurethral resection: - Low grade papillary urothelial carcinoma, non-invasive. - No muscularis propria identified. Bladder, transurethral resection/biopsy Type: Papillary urothelial carcinoma, non-invasive Histologic grade: Low grade Muscularis propria: Not identified Extent of invasion: Non-invasive Lymphovascular invasion: Not identified. Discussed TURBT findings: High-grade invasive bladder cancer with LVI. CT scan of the abdomen and pelvis from 08/08/22: 1. Large mass arising from the left bladder wall with direct extension into the prostate fossa, left internal iliac chain and the peritoneal cavity. 2. There is extensive retroperitoneal, pelvic and right iliac lymphadenopathy. 3. There are 2 large peritoneal masses in the right mid abdomen. 4. There is no hydronephrosis seen. 5. There is no radiopaque renal calculi or enhancing renal mass seen. 6. There is mild hepatomegaly with no focal lesion seen. 7. There is a small splenic artery aneurysm. 8. There is a right lower lobe pulmonary nodule which is stable compared to CT chest 03/21/2022. Anterior abdominal wall - left upper quadrant, peritoneal mass CT CHEST from March, revealed: * Moderate pulmonary emphysema. * No acute pulmonary disease. No evidence of pulmonary embolism. * A few small stable pulmonary nodules are detected. No new lung nodule, pulmonary mass or pleural effusion. * Atherosclerotic disease of coronary arteries and thoracic aorta without aortic aneurysm. * Progressive enlargement of a lymph node in the upper abdomen, likely from metastatic disease process. Bladder cancer low-grade recurrence (early 2018, 2020) underwent immunotherapy induction Bladder cancer was initially diagnosed during evaluation for gross hematuria - 06/29 Dr Ponce. Bladder intervention(s) performed 07/27 , TURBT, , Ta noninvasive papillary carcinoma, Papillary lesion of low grade malignant potential 08/27 BCG 3 induction due to other risk factors. - 05/31 TURBT with gemcitabine - low-grade bladder cancer - Induction with 6 weeks Gemcitabine Abdomen therapy - 07/01 6 weeks gemcitabine induction, 09/28 three-week gemcitabine boost - 08/31 TURBT posterior mid bladder high-grade invasive with LVI Recurrence Risk per EORTC Low Risk. Bladder cancer risk factors Organic Solvent exposure No smoking Yes - heavy smoker - greater than 50 year pack per day Prior Cystoscopy 11/26 , Negative 06/30 NAD, 01/28 1 cm posterior wall lesion. 09/28 NAD, 12/29 NAD, 08/29 NAD Prior Cytology 08/27 , Negative for malignancy, 02/28 NAD Prior Imaging 05/29 CT scan with contrast, Bladder lesion 1,6 cm - 05/[address] with known nodules - 07/31 CT Urogram - There is bulky lymphadenopathy in the left internal iliac chain and likely exophytic mass arising off the left bladder with direct extension to the left bladder wall, the peritoneal and into the prostate fossa Planned treatment cystoscopy 6 months - goes to [place] for winter. PFSH: Medical History: Anxiety CAD (coronary artery disease) Cervical stenosis of spine COPD (chronic obstructive pulmonary disease) Depression Diabetic polyneuropathy associated with type 2 diabetes mellitus DM type 2 (diabetes mellitus, type 2) Elevated BUN History of smoking at least 1 pack per day for at least 30 years HTN (hypertension) FAMILY HISTORY: Younger sister has breast cancer. 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 She is . She had 3 children. She used to smoke 2 packs a day quit now down to 4 cigarettes a day. Denies alcohol. Review of Systems - Constitutional Reports system reviewed and no additional complaints, except as documented, Reports anorexia, Reports fatigue, Reports headache(s), Reports weakness, Denies body ache(s), Denies chills, Denies fever(s) - Eyes Reports system reviewed and no additional complaints, except as documented, Denies blurry vision - ENT Reports system reviewed and no additional complaints, except as documented - Cardiovascular Reports system reviewed and no additional complaints, except as documented, Denies chest pain at rest - Respiratory Reports no additional respiratory complaints, Denies cough - Gastrointestinal Reports system reviewed and no additional complaints, except as documented, Reports abdominal pain, Reports bloating, Reports nausea, Denies vomiting - Genitourinary Reports no additional female genitourinary complaints, Denies abnormal vaginal bleeding - Musculoskeletal Reports system reviewed and no additional complaints, except as documented - Integumentary/Breasts Skin/Breast: Reports no additional skin complaints - Neurologic Reports system reviewed and no additional complaints, except as documented, Reports weakness - Psychiatric Reports system reviewed and no additional complaints, except as documented - Endocrine Reports no additional endocrine complaints - Hematologic/Lymphatic Reports system reviewed and no additional complaints, except as documented - Allergic/Immunologic Reports system reviewed and no additional complaints, except as documented PMFSH Medical History: Medical History (Last Reviewed 01/07/23 @ 15:04 by Saturnino Smith MD) Anxiety Bladder cancer CAD (coronary artery disease) Cervical stenosis of spine COPD (chronic obstructive pulmonary disease) Depression Diabetic polyneuropathy associated with type 2 diabetes mellitus DM type 2 (diabetes mellitus, type 2) Elevated BUN History of cancer History of smoking at least 1 pack per day for at least 30 years HTN (hypertension) Hyperlipidemia Left leg swelling Low vitamin D level Mass of peritoneum Migraine headache Neck pain Nonalcoholic steatohepatitis (CHRISTINE) Pulmonary nodule 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 Smoker Vertigo Vitamin B 12 deficiency Vitamin B12 deficiency Functional capacity: uses cane/walker Patient : No Family History: Family History (Last Reviewed 01/07/23 @ 15:04 by Saturnino Smith MD) Mother CVD (cardiovascular disease) CVA (cerebral vascular accident) Father CVD (cardiovascular disease) Sister Breast cancer Family/Other Breast cancer Surgical History: Surgical History (Last Reviewed 01/07/23 @ 15:04 by Saturnino Smith MD) Fusion of spine of cervical region History of carpal tunnel release History of heart artery stent History of hysterectomy Social History: Social History (Last Reviewed 01/07/23 @ 15:04 by Saturnino Smith MD) Living Situation History: Household Members: Other Household Members Other:: house mate Housing: House Do you presently have visiting nurse or other home services: No Tobacco History: Patient Tobacco Use Status: Current everyday Tobacco Tobacco use type: Cigarette Cigarette Packs Per Day: 0.5 Years Smoked: 63 e-Cigarette/Vaping Use: Never Used Second Hand Smoke Exposure: No Advance Directives: Advance Directives Date on File: 11/14/21 Occupation Assessmet: service: No Current occupational status: retired 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 Performance Status ECOG Performance Status: 2 Home Medications and Allergies Current Medications: Current Medications Acetaminophen (Acetaminophen 325 Mg Tablet) 650 mg PO ONCE ALEXANDRE Stop: 01/15/23 23:59 Diphenhydramine HCl (Diphenhydramine Hcl 50 Mg/Ml Vial) 25 mg IVPUSH ONCE ALEXANDRE Stop: 01/15/23 23:59 Famotidine (Famotidine/Pf 20 Mg/2 Ml Vial) 20 mg IVPUSH ONCE ALEXANDRE Stop: 01/15/23 23:59 Heparin Sodium (Porcine) (Heparin Sodium,Porcine Flush 500 Unit/5 Ml Syringe) 500 unit IVFLUSH ONCE ALEXANDRE Stop: 01/15/23 23:59 Dexamethasone Sodium Phosphate (Decadron) 12 mg in 50 mls @ 200 mls/hr IV ONCE ALEXANDRE Stop: 01/15/23 23:59 Fosaprepitant 150 mg/ Sodium (Chloride) 150 mls @ 300 mls/hr IV ONCE ALEXANDRE Stop: 01/15/23 23:59 Ondansetron HCl (Zofran) 16 mg in 50 mls @ 200 mls/hr IV ONCE ALEXANDRE Stop: 01/15/23 23:59 Home Medications Medication Instructions Recorded Confirmed Type multivitamin (Daily Multi-Vitamin 1 tab PO BEDTIME 12/25/20 01/01/23 History tablet) aspirin 81 mg chewable tablet 1 tab PO BEDTIME 09/11/21 01/01/23 History atorvastatin 80 mg tablet 80 mg PO BEDTIME 09/11/21 01/01/23 History nitroglycerin 0.4 mg sublingual 1 tab sublingual Q5M PRN Chest Pain 09/11/21 01/01/23 History tablet lancets 33 gauge (TRUEplus Lancets) #100 ea 11/20/21 12/25/22 History bupropion HCl 150 mg 24 hr tablet, 150 mg PO DAILY 09/10/22 01/01/23 History extended release metformin 750 mg tablet,extended 750 mg PO DAILY 09/10/22 01/01/23 History release 24 hr Oxygen Home Use 09/23/22 12/25/22 History dkyztycyup-sxfykgidqckhj-tgjkfvnw 1 tab PO Q6H PRN Headache 12/31/22 01/01/23 History 50 mg-325 mg-40 mg tablet ipratropium 0.5 mg-albuterol 3 mg 3 ml inhalation QID PRN Shortness 12/31/22 01/01/23 History (2.5 mg base)/3 mL nebulization Of Breath soln nystatin 100,000 unit/gram topical 1 appl topical TID PRN Rash 12/31/22 01/01/23 History powder prednisone 5 mg tablet 5 mg PO BID 12/31/22 01/01/23 History zolpidem 10 mg tablet 10 mg PO BEDTIME 12/31/22 01/01/23 History Allergies Allergy/AdvReac Type Severity Reaction Status Date / Time amoxicillin [AMOXICILLIN] Allergy Mild DIARRHEA Verified 12/25/22 10:32 Darvocet A500 Allergy Unknown upset Verified 12/25/22 10:32 stomach melatonin Allergy Unknown Nausea and Verified 12/25/22 10:32 Vomiting oxycodone [From PERCOCET] Allergy Unknown NAUSEA,VOMI Verified 12/25/22 10:32 TING propoxyphene Allergy Unknown Stomach Verified 12/25/22 10:32 Upset influenza virus vaccine, AdvReac Intermediate NAUSEA,DIAR Verified 12/25/22 10:32 specific WU [FLU VACCINE] lactose [LACTOSE] AdvReac Intermediate GI UPSET Verified 12/25/22 10:32 metronidazole [From FLAGYL] AdvReac Intermediate NAUSEA & Verified 12/25/22 10:32 VOMITING Sulfa (Sulfonamide AdvReac Intermediate EYE DROPS Verified 12/25/22 10:32 Antibiotics) (ONLY)-IRITIS Exam Vital signs: Vital Signs Temp 98.4 F 01/15/23 08:34 Pulse 84 01/15/23 08:34 Resp 18 01/15/23 08:34 BP 123/67 01/15/23 08:34 Pulse Ox 97 01/15/23 08:34 O2 Del Method Room Air 01/15/23 08:34 Intake & Output 01/14/23 01/15/23 01/15/23 18:59 06:59 18:59 Other: Weight 56.9 kg Weight in Grams 38206 Weight 56.9 kg BMI result Body Mass Index 23.7 - Constitutional Present: no acute distress - Routine HEENT Exam Head: Present: atraumatic, normal inspection Eye: Present: normal appearance ENT: Present: mucous membranes moist - Routine Neck Exam Present: full ROM - Routine Respiratory Exam Present: CTAB - Routine Cardiovascular Exam Cardiovascular: Present: RRR, S1, S2 - Routine Abdominal Exam Present: nontender - Routine Rectal Exam Patient deferred: digital exam - Routine Extremities Exam Present: nontender - Routine Back/Spine/Pelvis Exam Back/Spine: Present: full ROM - Routine Skin Exam Present: intact - Routine Neurological Exam Present: alert, oriented X3 - Routine Psychiatric Exam Present: normal affect Data - Labs CBC & Chem 7: 12/02/22 11:47 12/02/22 11:47 Assessment and Plan Patient Active problem list reviewed?: Yes (1) Bladder cancer Problem details: Recurrent low-grade TURBT with induction immunotherapy 2020 2022 - high-grade bladder cancer Status: Inactive Assessment and plan: A 72-year-old female, seen in office for microscopic hematuria and recurrent UTI. On cystoscopy, found to have a 2.5 to 3 cm lesion on the posterior wall upper half of the bladder, long smoking history. Plan for removal with bilateral retrograde. She has had abdominal CT, which was normal. Bladder, transurethral resection: - Low grade papillary urothelial carcinoma, non-invasive. - No muscularis propria identified. Bladder, transurethral resection/biopsy Type: Papillary urothelial carcinoma, non-invasive Histologic grade: Low grade Muscularis propria: Not identified Extent of invasion: Non-invasive Lymphovascular invasion: Not identified papillary urothelial Carcinoma, High grade, invades into lamina propria. LVI seen. High grade. Muscularis present. CT scan of the abdomen and pelvis from 08/08/22: 1. Large mass arising from the left bladder wall with direct extension into the prostate fossa, left internal iliac chain and the peritoneal cavity. 2. There is extensive retroperitoneal, pelvic and right iliac lymphadenopathy. 3. There are 2 large peritoneal masses in the right mid abdomen. 4. There is no hydronephrosis seen. 5. There is no radiopaque renal calculi or enhancing renal mass seen. 6. There is mild hepatomegaly with no focal lesion seen. 7. There is a small splenic artery aneurysm. 8. There is a right lower lobe pulmonary nodule which is stable compared to CT chest 03/21/2022. Patient has had TURBT x 3. She has had intravesical therapy: With BCG in 2019. With Gemzar in 2020. With mitomycin in 2022. She now seems to have wide spread disease, in the abdomen. l requested IR guided biopsy of right iliac adenopathy. I discussed with Dr. Beasley who proceeded with it on 10/22. Biopsy revealed: High-grade serous carcinoma. Consistent with disability advocate versus peritoneal primary. PDL-1: 13. I discussed the case with the pathologist Dr. Siddiqui. She has compared it to the previous bladder cancer and it mujica differently, in terms of the immuno stains. She is going to perform the disability advocate markers on the previous bladder cancer as well. 09/01/22: Bladder tumor is also c/w Serous Papillary Carcinoma. I shared the results with her today. Explained the concerns that this could be a disability advocate primary. She tells me she has had total hysterectomy 25 years ago. She thought it was done here however looking back in the pathology archives, we did not find any results. I checked with [facility] to see if she had the surgery done there. CT scan of the chest for staging. This revealed: Large multilobulated soft tissue mass arising from the bladder dome, measuring 9.2 x 6.2 x 8 cm. There is direct invasion/involvement of the rectosigmoid colon and vaginal cuff. There is likely metastatic involvement with multiple peritoneal masses and extensive retroperitoneal and gastrohepatic ligament lymphadenopathy. Disease progressionwith interval increase in size of pulmonary nodules. l checked baseline tumor markers as well: CEA 5.70, Ca 125: 2168. She saw disability advocate Oncology at [facility]. on December 12. They have recommended neoadjuvant chemotherapy with 3 cycles of carbo Taxol and bevacizumab. This would be followed by surgery, possible and then another 3 cycles of chemotherapy. She prefers to have her chemotherapy here. She tells me she was in house between 01/01 in 01/07. Discharge summary: 72 year old female with advanced metastatic bladder cancer who was admitted with sepsis, pneumonia, COPD exacberation, possible UTI. She has Bacteroides thetaiotaomicron bacteremia. ID was concerned for possible colovesical fistrula? and recommends IV Ceftriaxone and Flagyl for possible 14 days. She was evaluated by Surgery? and Urology and there is no evidence of? colovesicular fistual. CT show no bladder air. To complete 14 days of Ceftriaxone and Falgyl, midline is inserted for IV Ceftriaxone and will get PO Flagyl. COPD exacerbation, treated with steroid and bronchodialtors She feels a bit better however she is still on IV antibiotics till Thursday. She presented for chemotherapy however in view the above problems will hold off today. Will let her complete the antibiotic course. Ca 125: 2562. l rechecked her imaging since it has been more than [address] abdomen from 12/30: 1. Since 11/04/2022, multiple intraperitoneal, retroperitoneal and pelvic masses have increased in size compatible with disease progression. 2. . No bowel, biliary or renal obstruction. 3. Nodular contour to the liver with enlargement of the left and caudate lobes consistent with cirrhosis. CT chest from 01/01: 1. Diffuse emphysema without acute process. 2. Right lower lobe pulmonary nodule is stable. No new nodules seen. 3. No abnormal mediastinal or axillary lymph nodes seen. 4. Moderate coronary artery calcifications are stable. PLAN: She was given IV hydration. Will set up her treatment next week. She came in for chemotherapy teaching. She will return next week for chemotherapy and a follow-up. All her questions were answered to her satisfaction. Thank you, Cc: Dr. Matthews. Dr. Ponce. - Time Spent With Patient Time Spent with Patient (in minutes): 30
[2023-01-15] MEDS: 0.9 % Sodium Chloride 1,000 ML 500 ML IV (09:37)
--- NOTE | 2023-01-15 14:56 | MHC.HEMONC ---
Pt came in for C1 Avastin/Taxol/Carbo. She recently was discharged from [facility]. She states she does not feel well today. She has a midline in place and is receiving IV antibiotics at home. Per her daughter, her appetite has been poor and not drinking enough fluids. Dr Waters was notified. She saw pt, and decision made for IV hydration, and reschedule treatment for next week. NS 1000cc infused over 2 hrs. Prescription for Megace sent to pts pharmacy per daughters request. Departure packet given. Will call with any problems. Departed unit.
[2023-01-28 09:17] VITALS: BP 122/55; PULSE 84; RESP 18; TEMP 36.4; O2SAT 99; BMI 23.0
[2023-01-28] MEDS: 0.9 % Sodium Chloride 1,000 ML 500 ML IV (10:30)
[2023-01-28] MEDS: Acetaminophen 325 MG TABLET 650 MG PO (12:39)
[2023-01-28] MEDS: dexAMETHasone sod phosphate/NS 12 MG/50 ML PIGGYBACK 200 MG IV (12:40)
[2023-01-28] MEDS: diphenhydrAMINE HCL 50 MG/ML VIAL 25 MG IVPUSH (12:40)
[2023-01-28] MEDS: Famotidine/PF 20 MG/2 ML VIAL IVPUSH (12:40)
[2023-01-28 13:30] LABS: Appearance Urine Clear; Color Urine Dark Yellow; Glucose Urine UA Negative (Negative); Leukocyte Esterase Urine Small (1+) (Negative); Nitrite Urine Negative (Negative); PH 5.5 (5.0-9.0); Specific Gravity - Urine >= 1.030 (1.005-1.025); UMIC TRIGGER UA YES; Urine Blood Moderate (2+) (Negative); Urine Ketones Negative (Negative); Urine Protein 100 (2+) mg/dL (Neg-Trace)
[2023-01-28 13:34] LABS: Bacteria Urine None Seen (None Seen); Hyaline Casts Urine 0-2 /LPF (0-2); RBC Urine >20 /HPF (0-2)
[2023-01-28] MEDS: Fosaprepitant Dimeglumine 150 MG in 0.9 % Sodium Chloride 145 ML 300 MG IV (13:52)
--- NOTE | 2023-01-28 16:08 | MHC.HEMONC ---
C1D1: Avastin/Carboplatin/Taxol. Patient had labs completed yesterday at [facility]- BUN elevated at 50. Creat 1.06- Patient reports weakness, fatigue, and poor intake. Patient unsure about starting chemotherapy. Dr. Waters notified. Order 1L NS to be administered over 2 hours first and reassess. #22 angio placed to left wrist with positive blood return. Dr. Waters in to speak with patient and daughter in law Lizabeth. They have decided to start treatment today at 50% dose reduction. Patient unable to provide urine sample initially. MD notified and states we can hold Avastin today. Pharmacy aware. Pre-medicated with Tylenol 650mg PO, Pepcid 20mg IV, Dexamethasone 12mg IV, Zofran 16mg IV, Benadryl 25mg IV, and Emend 150mg IV. Paclitaxel and Carbo infused without incident. UA obtained 2+ protein noted- will continue to hold Avastin at this time and reassess next week with labs and urine. Discharge packet provided. Patient instructed to take Dexamethasone for 2 days BID post chemotherapy. IV removed- catheter intact. No redness or swelling noted to site.
[2023-02-04 13:46] LABS: MANUAL DIFF FLAG NO
[2023-02-04 13:57] LABS: Basophils Absolute Auto 0.1 X10*3/uL (0.0-0.2); Basophils Percent Auto 0.6 % (0-2); Eosinophils Absolute Auto 0.2 X10*3/uL (0.0-0.4); Eosinophils Percent Auto 1.9 % (0-4); Hematocrit 33.1 % (37.0-47.0); Hemoglobin 9.8 g/dl (12.0-16.0); Imm Gran Abs Auto 0.06 X10*3/uL (0.00-0.03); Imm Gran Pct Auto 0.8 % (0.0-0.4); Lymphocytes Absolute Auto 1.6 X10*3/uL (1.2-4.9); Lymphocytes Percent Auto 19.8 % (20-40); Mean Corpuscular HGB Conc 29.6 g/dl (31.0-35.0); Mean Corpuscular Hemoglobin 23.3 pg (27.0-33.0); Mean Corpuscular Volume 78.6 fL (80.0-98.0); Monocytes Absolute Auto 0.9 X10*3/uL (0.1-1.2); Monocytes Percent Auto 11.6 % (2-11); Neutrophils Absolute Auto 5.2 x10*3/uL (2.0-8.3); Neutrophils Percent Auto 65.3 % (45-73); Platelet Count 332 X10*3/uL (160-400); Red Blood Count 4.21 X10*6/uL (4.20-5.50); Red Cell Distribution Width 20.1 % (11.0-16.0)
[2023-02-04 14:14] LABS: Alanine Aminotransferase 26 U/L (0-31); Albumin Level 3.6 g/dL (3.5-5.0); Alkaline Phosphatase 124 U/L (39-117); Anion Gap 13 (12-20); Aspartate Amino Transferase 41 U/L (5-31); Bilirubin Total 0.3 mg/dL (0.0-1.0); Blood Urea Nitrogen 27 mg/dL (9-16); Calcium 9.5 mg/dL (8.4-10.2); Carbon Dioxide 23 mmol/L (22-29); Chloride 110 mmol/L (96-108); Estimated Glomerular Filt Rate 59; Glucose Random 140 mg/dL (60-115); Potassium 3.8 mmol/L (3.3-5.1); Sodium 142 mmol/L (135-145); Total Protein 7.1 g/dL (6.5-8.0)
--- NOTE | 2023-02-05 08:04 | HO.HEMONCPA ---
PA FOR DRONABINOL 2.5 CAPSULE DENIED BY DELFINA GARY WAS NOTIFIED
[2023-02-19 08:46] VITALS: BP 95/62; PULSE 102; RESP 20; TEMP 36.2; O2SAT 100; BMI 22.9
[2023-02-19] MEDS: dexAMETHasone sod phosphate/NS 12 MG/50 ML PIGGYBACK 200 MG IV (09:28)
[2023-02-19] MEDS: Famotidine/PF 20 MG/2 ML VIAL IVPUSH (09:29)
[2023-02-19] MEDS: diphenhydrAMINE HCL 50 MG/ML VIAL 25 MG IVPUSH (09:30)
[2023-02-19] MEDS: Fosaprepitant Dimeglumine 150 MG in 0.9 % Sodium Chloride 145 ML 300 MG IV (10:10)
--- NOTE | 2023-02-19 14:27 | MHC.HEMONC ---
Here for c2 carbo/taxol, avastin held due to 3+ protein in urine. Reports feeling well, just mild weakness in legs. Labs drawn and reviewed, #22 IV placed in right forearm. CHemo and premeds tolerated well. Pt aware of next appt, discharge packet provided.
[2023-03-12 09:10] VITALS: BP 89/54; PULSE 102; RESP 18; TEMP 36.4; O2SAT 97; BMI 21.7
[2023-03-12 09:20] LABS: MANUAL DIFF FLAG NO
[2023-03-12 09:23] LABS: Basophils Absolute Auto 0.1 X10*3/uL (0.0-0.2); Basophils Percent Auto 0.6 % (0-2); Eosinophils Absolute Auto 0.1 X10*3/uL (0.0-0.4); Eosinophils Percent Auto 0.9 % (0-4); Hematocrit 33.6 % (37.0-47.0); Imm Gran Abs Auto 0.11 X10*3/uL (0.00-0.03); Imm Gran Pct Auto 0.8 % (0.0-0.4); Lymphocytes Absolute Auto 1.7 X10*3/uL (1.2-4.9); Lymphocytes Percent Auto 12.9 % (20-40); Mean Corpuscular HGB Conc 29.8 g/dl (31.0-35.0); Mean Corpuscular Hemoglobin 23.7 pg (27.0-33.0); Mean Corpuscular Volume 79.6 fL (80.0-98.0); Mean Platelet Volume 9.8 fL (9.4-12.3); Monocytes Absolute Auto 0.9 X10*3/uL (0.1-1.2); Neutrophils Absolute Auto 10.5 x10*3/uL (2.0-8.3); Neutrophils Percent Auto 77.8 % (45-73); Platelet Count 330 X10*3/uL (160-400); Red Blood Count 4.22 X10*6/uL (4.20-5.50); Red Cell Distribution Width 19.8 % (11.0-16.0); White Blood Count 13.5 X10*3/uL (4.8-10.8)
[2023-03-12 09:37] LABS: Alanine Aminotransferase 12 U/L (0-31); Albumin Level 3.2 g/dL (3.5-5.0); Alkaline Phosphatase 138 U/L (39-117); Anion Gap 13 (12-20); Aspartate Amino Transferase 24 U/L (5-31); Bilirubin Total 0.3 mg/dL (0.0-1.0); Blood Urea Nitrogen 21 mg/dL (9-16); Calcium 9.5 mg/dL (8.4-10.2); Carbon Dioxide 24 mmol/L (22-29); Chloride 110 mmol/L (96-108); Creatinine Clr Calc Pharmacy 43.3; Estimated Glomerular Filt Rate > 60; Glucose Random 127 mg/dL (60-115); Potassium 4.1 mmol/L (3.3-5.1); Sodium 143 mmol/L (135-145); Total Protein 7.4 g/dL (6.5-8.0)
[2023-03-12] MEDS: Acetaminophen 325 MG TABLET 650 MG PO (10:47)
[2023-03-12] MEDS: diphenhydrAMINE HCL 50 MG/ML VIAL 25 MG IVPUSH (10:48)
[2023-03-12] MEDS: Famotidine/PF 20 MG/2 ML VIAL IVPUSH (10:51)
[2023-03-12] MEDS: dexAMETHasone sod phosphate/NS 12 MG/50 ML PIGGYBACK 200 MG IV (10:58)
[2023-03-12] MEDS: Fosaprepitant Dimeglumine 150 MG in 0.9 % Sodium Chloride 145 ML 300 MG IV (11:01)
--- NOTE | 2023-03-12 14:59 | PM.HEMONCPN ---
Medical Summary - Medical Summary Date of Service: 03/12/23 Chief complaint: Follow-up for: Ovarian carcinoma. Primary Care Provider: Linda Matthews MD Medical Summary: DIAGNOSIS: 1. BLADDER CARCINOMA. CT 4B,CN3,BUILDING [employer]OR. STAGE IV A. 2. Serous papillary Tumor. CURRENT THERAPY: Started on Carboplatin and Taxol on 01/28. Cycle 02:02/19. Here for cycle 3. Unfortunately she was not able to receive the bevacizumab due to 2+ protein in the urine. Interval History Interval history: Dai Chakraborty is a 72 year old lady, here for a follow-up visit. Overall she is hanging in there. Treatment is not too bad. Lately she noted some burning in the urine. She tried the azo pills which helped. She complains of pain in her right lower quadrant. It is more of a crampy pain. She feels rather tired. No further chills nor fever. She has headaches she gets migraines. Denies chest pain. She gets SOB, she has COPD. She has pain in the right side of her abdomen. This is more of an intermittant cramping. Grades it at 5 on 1-10 scale. She lost a couple of lb. She feels rather bloated. Appetite is not good. She has lost weight. She has been taking Tylenol for the pain. Denies any recent hematuria. She has increased frequency of micturition. Denies joint pain or muscle pain. She has leg weakness. She feels depressed. No skin rashes or pruritus. INTERIM HISTORY: She tells me she was in house between 01/01 in 01/07. Discharge summary: 72 year old female with advanced metastatic bladder cancer who was admitted with sepsis, pneumonia, COPD exacberation, possible UTI. She has Bacteroides thetaiotaomicron bacteremia. ID was concerned for possible colovesical fistrula? and recommends IV Ceftriaxone and Flagyl for possible 14 days. She was evaluated by Surgery? and Urology and there is no evidence of? colovesicular fistual. CT show no bladder air. To complete 14 days of Ceftriaxone and Falgyl, midline is inserted for IV Ceftriaxone and will get PO Flagyl. COPD exacerbation, treated with steroid and bronchodialtors She feels a bit better however she is still on IV antibiotics till Thursday. PRESENTING HISTORY: She was referred by Dr. Ponce on account of progressive bladder cancer. She was admitted to the hosptial recently, discharge summary: 72 yo F with a PMH of COPD, CAD, DM, HTN, active Tobacco use (4 to 6 cig/day), Cervical stenosis who presents to the ED with increasing shortness of breath, chest tightness for? 2 days? and not getting relief with Trelegy albuterol and DuoNeb. She has cough with? phlegm. She has no fever or chills. She has had no inpatient admission for more than a year.?Work up in ED: no PNA on CXR, nl WBC, no hypoxia. Treated with Duoneb, IV Solu-medrol, magneseium and Ceftriaxone. Course: Patient admitted to [facility] thin started on ceftriaxone and azithromycin. She was also started on pulse dose Solu-Medrol. DuoNebs q.4 hours while awake; slow to respond to therapy. She felt better and left to return to home on O2. At this point she is medically acceptable for discharge will be discharged on a course of Ceftin and a prednisone taper. She can follow-up with PCP in office in 2 weeks PAST MEDICAL HISTORY: She was initially diagnosed with Bladder carcinoma in 2019. On cystoscopy, found to have a 2.5 to 3 cm lesion on the posterior wall upper half of the bladder, long smoking history. Plan for removal with bilateral retrograde. She has had abdominal CT, which was normal. Bladder, transurethral resection: - Low grade papillary urothelial carcinoma, non-invasive. - No muscularis propria identified. Bladder, transurethral resection/biopsy Type: Papillary urothelial carcinoma, non-invasive Histologic grade: Low grade Muscularis propria: Not identified Extent of invasion: Non-invasive Lymphovascular invasion: Not identified. Discussed TURBT findings: High-grade invasive bladder cancer with LVI. CT scan of the abdomen and pelvis from 08/08/22: 1. Large mass arising from the left bladder wall with direct extension into the prostate fossa, left internal iliac chain and the peritoneal cavity. 2. There is extensive retroperitoneal, pelvic and right iliac lymphadenopathy. 3. There are 2 large peritoneal masses in the right mid abdomen. 4. There is no hydronephrosis seen. 5. There is no radiopaque renal calculi or enhancing renal mass seen. 6. There is mild hepatomegaly with no focal lesion seen. 7. There is a small splenic artery aneurysm. 8. There is a right lower lobe pulmonary nodule which is stable compared to CT chest 03/21/2022. Anterior abdominal wall - left upper quadrant, peritoneal mass CT CHEST from March, revealed: * Moderate pulmonary emphysema. * No acute pulmonary disease. No evidence of pulmonary embolism. * A few small stable pulmonary nodules are detected. No new lung nodule, pulmonary mass or pleural effusion. * Atherosclerotic disease of coronary arteries and thoracic aorta without aortic aneurysm. * Progressive enlargement of a lymph node in the upper abdomen, likely from metastatic disease process. Bladder cancer low-grade recurrence (early 2018, 2020) underwent immunotherapy induction Bladder cancer was initially diagnosed during evaluation for gross hematuria - 06/29 Dr Ponce. Bladder intervention(s) performed 07/27 , TURBT, , Ta noninvasive papillary carcinoma, Papillary lesion of low grade malignant potential 08/27 BCG 3 induction due to other risk factors. - 05/31 TURBT with gemcitabine - low-grade bladder cancer - Induction with 6 weeks Gemcitabine Abdomen therapy - 07/01 6 weeks gemcitabine induction, 09/28 three-week gemcitabine boost - 08/31 TURBT posterior mid bladder high-grade invasive with LVI Recurrence Risk per EORTC Low Risk. Bladder cancer risk factors Organic Solvent exposure No smoking Yes - heavy smoker - greater than 50 year pack per day Prior Cystoscopy 11/26 , Negative 06/30 NAD, 01/28 1 cm posterior wall lesion. 09/28 NAD, 12/29 NAD, 08/29 NAD Prior Cytology 08/27 , Negative for malignancy, 02/28 NAD Prior Imaging 05/29 CT scan with contrast, Bladder lesion 1,6 cm - 05/[address] with known nodules - 07/31 CT Urogram - There is bulky lymphadenopathy in the left internal iliac chain and likely exophytic mass arising off the left bladder with direct extension to the left bladder wall, the peritoneal and into the prostate fossa Planned treatment cystoscopy 6 months - goes to [place] for winter. PFSH: Medical History: Anxiety CAD (coronary artery disease) Cervical stenosis of spine COPD (chronic obstructive pulmonary disease) Depression Diabetic polyneuropathy associated with type 2 diabetes mellitus DM type 2 (diabetes mellitus, type 2) Elevated BUN History of smoking at least 1 pack per day for at least 30 years HTN (hypertension) FAMILY HISTORY: Younger sister has breast cancer. 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 She is . She had 3 children. She used to smoke 2 packs a day quit now down to 4 cigarettes a day. Denies alcohol. Review of Systems - Constitutional Reports no additional constitutional complaints, Denies anorexia, Reports fatigue, Denies fever(s), Reports lack of energy, Reports malaise, Reports weight loss - Eyes Reports no additional eye complaints - ENT Reports no additional ear, nose, mouth, and throat complaints - Cardiovascular Reports no additional cardiovascular complaints - Respiratory Reports no additional respiratory complaints - Gastrointestinal Reports no additional gastrointestinal complaints - Genitourinary Reports no additional female genitourinary complaints - Musculoskeletal Reports no additional musculoskeletal complaints - Integumentary/Breasts Skin/Breast: Reports no additional skin complaints - Neurologic Reports no additional neurologic complaints, Reports headache(s), Reports weakness - Psychiatric Reports no additional psychiatric complaints - Endocrine Reports no additional endocrine complaints - Hematologic/Lymphatic Reports no additional hematologic/lymphatic complaints - Allergic/Immunologic Reports no additional allergic/immunologic complaints PMFSH Medical History: Medical History (Last Reviewed 02/11/23 @ 12:00 by Linda Matthews MD) Anxiety Bladder cancer CAD (coronary artery disease) Cervical stenosis of spine COPD (chronic obstructive pulmonary disease) Depression Diabetic polyneuropathy associated with type 2 diabetes mellitus DM type 2 (diabetes mellitus, type 2) Elevated BUN History of cancer History of smoking at least 1 pack per day for at least 30 years HTN (hypertension) Hyperlipidemia Left leg swelling Low vitamin D level Mass of peritoneum Migraine headache Neck pain Nonalcoholic steatohepatitis (CHRISTINE) Pulmonary nodule 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 Smoker Vertigo Vitamin B 12 deficiency Vitamin B12 deficiency Functional capacity: uses cane/walker Patient : No Family History: Family History (Last Reviewed 02/11/23 @ 12:01 by Linda Matthews MD) Mother CVD (cardiovascular disease) CVA (cerebral vascular accident) Father CVD (cardiovascular disease) Sister Breast cancer Family/Other Breast cancer Surgical History: Surgical History (Last Reviewed 02/11/23 @ 12:00 by Linda Matthews MD) Fusion of spine of cervical region History of carpal tunnel release History of heart artery stent History of hysterectomy Social History: Social History (Last Reviewed 01/07/23 @ 15:04 by Saturnino Smith MD) Living Situation History: Household Members: Other Household Members Other:: house mate Housing: House Do you presently have visiting nurse or other home services: No Tobacco History: Patient Tobacco Use Status: Current everyday Tobacco Tobacco use type: Cigarette Cigarette Packs Per Day: 0.5 Cigarettes Per Day: 1 Years Smoked: 63 e-Cigarette/Vaping Use: Never Used Second Hand Smoke Exposure: No Advance Directives: Advance Directives Date on File: 11/14/21 Occupation Assessmet: service: No Current occupational status: retired 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 Performance Status ECOG Performance Status: 1 Home Medications and Allergies Current Medications: Current Medications Acetaminophen (Acetaminophen 325 Mg Tablet) 650 mg PO ONCE ALEXANDRE Stop: 03/12/23 23:59 Last Admin: 03/12/23 10:47 Dose: 650 mg Diphenhydramine HCl (Diphenhydramine Hcl 50 Mg/Ml Vial) 25 mg IVPUSH ONCE ALEXANDRE Stop: 03/12/23 23:59 Last Admin: 03/12/23 10:48 Dose: 25 mg Famotidine (Famotidine/Pf 20 Mg/2 Ml Vial) 20 mg IVPUSH ONCE ALEXANDRE Stop: 03/12/23 23:59 Last Admin: 03/12/23 10:51 Dose: 20 mg Heparin Sodium (Porcine) (Heparin Sodium,Porcine Flush 500 Unit/5 Ml Syringe) 500 unit IVFLUSH ONCE ALEXANDRE Stop: 03/12/23 23:59 Dexamethasone Sodium Phosphate (Decadron) 12 mg in 50 mls @ 200 mls/hr IV ONCE ALEXANDRE Stop: 03/12/23 23:59 Last Infusion: 03/12/23 11:13 Dose: Infused Fosaprepitant 150 mg/ Sodium (Chloride) 150 mls @ 300 mls/hr IV ONCE ALEXANDRE Stop: 03/12/23 23:59 Last Infusion: 03/12/23 11:31 Dose: Infused Ondansetron HCl (Zofran) 16 mg in 50 mls @ 200 mls/hr IV ONCE ALEXANDRE Stop: 03/12/23 23:59 Last Infusion: 03/12/23 11:13 Dose: Infused Carboplatin 200 mg/ Sodium (Chloride) 270 mls @ 540 mls/hr IV ONCE ALEXANDRE Stop: 03/12/23 23:59 Last Admin: 03/12/23 14:16 Dose: 540 mls/hr Paclitaxel 132 mg/ Sodium (Chloride) 272 mls @ 272 mls/hr IV ONCE ALEXANDRE Stop: 03/12/23 23:59 Last Admin: 03/12/23 13:06 Dose: 272 mls/hr Home Medications Medication Instructions Recorded Confirmed Type multivitamin (Daily Multi-Vitamin 1 tab PO BEDTIME 12/25/20 01/28/23 History tablet) aspirin 81 mg chewable tablet 1 tab PO BEDTIME 09/11/21 01/28/23 History atorvastatin 80 mg tablet 80 mg PO BEDTIME 09/11/21 01/28/23 History nitroglycerin 0.4 mg sublingual 1 tab sublingual Q5M PRN Chest Pain 09/11/21 01/28/23 History tablet lancets 33 gauge (TRUEplus Lancets) #100 ea 11/20/21 01/28/23 History bupropion HCl 150 mg 24 hr tablet, 150 mg PO DAILY 09/10/22 01/28/23 History extended release Oxygen Home Use 09/23/22 01/28/23 History [id number]-[id number] 1 tab PO Q6H PRN Headache 12/31/22 01/28/23 History 50 mg-325 mg-40 mg tablet ipratropium 0.5 mg-albuterol 3 mg 3 ml inhalation QID PRN Shortness 12/31/22 01/28/23 History (2.5 mg base)/3 mL nebulization Of Breath soln nystatin 100,000 unit/gram topical 1 appl topical TID PRN Rash 12/31/22 01/28/23 History powder zolpidem 10 mg tablet 10 mg PO BEDTIME 12/31/22 01/28/23 History Allergies Allergy/AdvReac Type Severity Reaction Status Date / Time amoxicillin [AMOXICILLIN] Allergy Mild DIARRHEA Verified 02/11/23 11:05 Darvocet A500 Allergy Unknown upset Verified 02/11/23 11:05 stomach melatonin Allergy Unknown Nausea and Verified 02/11/23 11:05 Vomiting oxycodone [From PERCOCET] Allergy Unknown NAUSEA,VOMI Verified 02/11/23 11:05 TING propoxyphene Allergy Unknown Stomach Verified 02/11/23 11:05 Upset influenza virus vaccine, AdvReac Intermediate NAUSEA,DIAR Verified 02/11/23 11:05 specific WU [FLU VACCINE] lactose [LACTOSE] AdvReac Intermediate GI UPSET Verified 02/11/23 11:05 metronidazole [From FLAGYL] AdvReac Intermediate NAUSEA & Verified 02/11/23 11:05 VOMITING Sulfa (Sulfonamide AdvReac Intermediate EYE DROPS Verified 02/11/23 11:05 Antibiotics) (ONLY)-IRITIS Exam Vital signs: Vital Signs Temp 97.6 F 03/12/23 09:10 Pulse 102 H 03/12/23 09:10 Resp 18 03/12/23 09:10 BP 89/54 L 03/12/23 09:10 Pulse Ox 97 03/12/23 09:10 O2 Del Method Room Air 03/12/23 09:10 Intake & Output 03/11/23 03/12/23 03/12/23 18:59 06:59 18:59 Intake Total 250 / 250 Balance 250 / 250 Intake: Intake, IV Amount 250 / 250 Fosaprepitant Dimeglumine 150 150 / 150 mg In 0.9 % Sodium Chloride 145 ml @ 300 mls/hr IV ONCE ALEXANDRE Rx #:[id number] Ondansetron HCL/NS 16 mg In 50 50 / 50 ml @ 200 mls/hr IV ONCE ALEXANDRE Rx# :[id number] dexAMETHasone sod phosphate/NS 50 / 50 12 mg In 50 ml @ 200 mls/hr IV ONCE ALEXANDRE Rx#:[id number] Other: Weight 52.2 kg [place] Weight in Grams 37270 Weight 52.2 kg BMI result Body Mass Index 21.7 - Constitutional Present: no acute distress - Routine HEENT Exam Head: Present: atraumatic, normal inspection Eye: Present: normal appearance ENT: Present: mucous membranes moist - Routine Neck Exam Present: full ROM - Routine Respiratory Exam Present: CTAB - Routine Cardiovascular Exam Cardiovascular: Present: RRR, S1, S2 - Routine Abdominal Exam Present: nontender - Routine Rectal Exam Patient deferred: digital exam - Routine Extremities Exam Present: nontender - Routine Back/Spine/Pelvis Exam Back/Spine: Present: full ROM - Routine Skin Exam Present: intact - Routine Neurological Exam Present: alert, oriented X3 - Routine Psychiatric Exam Present: normal affect Data - Labs CBC & Chem 7: 03/12/23 09:19 03/12/23 09:19 Assessment and Plan Patient Active problem list reviewed?: Yes (1) Bladder cancer Problem details: Recurrent low-grade TURBT with induction immunotherapy 2020 2022 - high-grade bladder cancer Status: Inactive Assessment and plan: A 72-year-old female, seen in office for microscopic hematuria and recurrent UTI. On cystoscopy, found to have a 2.5 to 3 cm lesion on the posterior wall upper half of the bladder, long smoking history. Plan for removal with bilateral retrograde. She has had abdominal CT, which was normal. Bladder, transurethral resection: - Low grade papillary urothelial carcinoma, non-invasive. - No muscularis propria identified. Bladder, transurethral resection/biopsy Type: Papillary urothelial carcinoma, non-invasive Histologic grade: Low grade Muscularis propria: Not identified Extent of invasion: Non-invasive Lymphovascular invasion: Not identified papillary urothelial Carcinoma, High grade, invades into lamina propria. LVI seen. High grade. Muscularis present. CT scan of the abdomen and pelvis from 08/08/22: 1. Large mass arising from the left bladder wall with direct extension into the prostate fossa, left internal iliac chain and the peritoneal cavity. 2. There is extensive retroperitoneal, pelvic and right iliac lymphadenopathy. 3. There are 2 large peritoneal masses in the right mid abdomen. 4. There is no hydronephrosis seen. 5. There is no radiopaque renal calculi or enhancing renal mass seen. 6. There is mild hepatomegaly with no focal lesion seen. 7. There is a small splenic artery aneurysm. 8. There is a right lower lobe pulmonary nodule which is stable compared to CT chest 03/21/2022. Patient has had TURBT x 3. She has had intravesical therapy: With BCG in 2019. With Gemzar in 2020. With mitomycin in 2022. She now seems to have wide spread disease, in the abdomen. l requested IR guided biopsy of right iliac adenopathy. I discussed with Dr. Beasley who proceeded with it on 10/22. Biopsy revealed: High-grade serous carcinoma. Consistent with urogynecology physician versus peritoneal primary. PDL-1: 13. I discussed the case with the pathologist Dr. Siddiqui. She has compared it to the previous bladder cancer and it mujica differently, in terms of the immuno stains. She is going to perform the urogynecology physician markers on the previous bladder cancer as well. 09/01/22: Bladder tumor is also c/w Serous Papillary Carcinoma. I shared the results with her today. Explained the concerns that this could be a urogynecology physician primary. She tells me she has had total hysterectomy 25 years ago. She thought it was done here however looking back in the pathology archives, we did not find any results. I checked with [facility] to see if she had the surgery done there. CT scan of the chest for staging. This revealed: Large multilobulated soft tissue mass arising from the bladder dome, measuring 9.2 x 6.2 x 8 cm. There is direct invasion/involvement of the rectosigmoid colon and vaginal cuff. There is likely metastatic involvement with multiple peritoneal masses and extensive retroperitoneal and gastrohepatic ligament lymphadenopathy. Disease progressionwith interval increase in size of pulmonary nodules. l checked baseline tumor markers as well: CEA 5.70, Ca 125: 2168. She saw urogynecology physician Oncology at [facility]. on December 12. They have recommended neoadjuvant chemotherapy with 3 cycles of carbo Taxol and bevacizumab. This would be followed by surgery, possible and then another 3 cycles of chemotherapy. She prefers to have her chemotherapy here. She tells me she was in house between 01/01 in 01/07. Discharge summary: 72 year old female with advanced metastatic bladder cancer who was admitted with sepsis, pneumonia, COPD exacberation, possible UTI. She has Bacteroides thetaiotaomicron bacteremia. ID was concerned for possible colovesical fistrula? and recommends IV Ceftriaxone and Flagyl for possible 14 days. She was evaluated by Surgery? and Urology and there is no evidence of? colovesicular fistual. CT show no bladder air. To complete 14 days of Ceftriaxone and Falgyl, midline is inserted for IV Ceftriaxone and will get PO Flagyl. COPD exacerbation, treated with steroid and bronchodialtors She feels a bit better however she is still on IV antibiotics till Thursday. She presented for chemotherapy however in view the above problems will hold off today. Will let her complete the antibiotic course. Ca 125: 2562. l rechecked her imaging since it has been more than [address] abdomen from 12/30: 1. Since 11/04/2022, multiple intraperitoneal, retroperitoneal and pelvic masses have increased in size compatible with disease progression. 2. . No bowel, biliary or renal obstruction. 3. Nodular contour to the liver with enlargement of the left and caudate lobes consistent with cirrhosis. CT chest from 01/01: 1. Diffuse emphysema without acute process. 2. Right lower lobe pulmonary nodule is stable. No new nodules seen. 3. No abnormal mediastinal or axillary lymph nodes seen. 4. Moderate coronary artery calcifications are stable. She was started on carboplatin and Taxol on 01/28. Second dose on 02/19. Third cycle today. Unfortunately, she had to be dose reduced on account of toxicity and she was not able to get bevacizumab on account of 2+ protein in the urine. PLAN: She has UTI symptoms. Will check a urine analysis and culture. (this came back negative.) Treat with antibiotic if needed. Will proceed with a CT scan of the abdomen for restaging. She will have Pulmonary clearance from Dr. Logan. Will try to move up the appointment to next week. She will be following up with Dr. Robles in the near future. All her questions were answered to her satisfaction. Thank you, Cc: Dr. Matthews. Dr. Ponce. - Time Spent With Patient Time Spent with Patient (in minutes): 30
--- NOTE | 2023-03-12 16:20 | MHC.HEMONC ---
Here for C3 Carbo/Taxol. Labs drawn. Pt states tolerated last treatment well, offering no c/o. IV started right forearm with good blood return noted. Premeds given as ordered. Treatment done and tolerated well. IV removed with no redness or swelling at the site. Dr Waters in to see pt for follow up. Pt has CT scan scheduled at [facility]. Also has appt with Dr Logan 03/24 for surgical clearance. Surgery scheduled at [facility] 04/[address] Waters. Next chemo scheduled 04/01. Departure packet given and pt departed unit. Urine cup given for outpt ua/c+s as pt stated to Dr Waters that she had some burning with urination.
--- NOTE | 2023-03-13 08:30 | MHC.HEMONC ---
Per request from Dr Waters, pts upcoming appointment with Dr Logan moved to earlier date, from 03/24 to 03/18/23 at 1:45pm. Pt called and notified.
[2023-03-27 11:35] VITALS: BP 101/50; PULSE 96; O2SAT 99; BMI 21.9
--- NOTE | 2023-03-27 11:48 | PM.HEMONCPN ---
Medical Summary - Medical Summary Date of Service: 03/27/23 Chief complaint: Follow-up for: Ovarian carcinoma. Primary Care Provider: Linda Matthews MD Medical Summary: DIAGNOSIS: 1. BLADDER CARCINOMA. 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 STAGE IV A. 2. Serous papillary Tumor. CURRENT THERAPY: Started on Carboplatin and Taxol on 01/28. Cycle 02:02/19. Had cycle 3 on 03/12. Unfortunately she was not able to receive the bevacizumab due to 2+ protein in the urine. Interval History Interval history: Dai Chakraborty is a 72 year old unfortunate lady, here for a follow-up visit. She was seen in the ER on 03/24: This is an RME: Additional HPI, ROS, PE not included below will be deferred to primary provider. 72 yo female presenting with brown urine that her daughter noticed this morning. She describes it as muddy brown and is concerned for a fistula formation as patient has a history of complex UTIs. She is having associated dysuria and urgency. The daughter also reports that the oncology surgeon told her today that her cancer has spread to the genital region. Plan - UA, labs Obtained record from [facility]. She had a large heterogeneous mass centered within the right hemipelvis consistent with a necrotic tumor patient also had noted multiple bilateral peritoneal implant suggestive of carcinomatosis. In the setting of metastatic disease patient wants to go home. Previous cultures are reviewed. Urine was positive for having Enterococcus in the past. Resistant to multiple antibiotics.Sensitive to linezolid.Will give Lenozelid along with Ceftin for empiric coverage of UTI. Patient to follow-up with oncology on an outpatient basis. Case discussed with oncologist. Agree with plan. Differential Diagnoses: The differential diagnosis associated with the presentation includes (metastatic cancer, bladder fistula, UTI were all consider) She denies any pain in the abdomen. She has some burning on going for urination. She has not had a bowel movement for a few days. Only goes a small amount. She is passing gas. Her belly is gurgling but there is no nausea vomiting nor heartburn. She is eating once a day She has couple of cans of boost every day. Her urine appears to be clearing. It is no longer muddy brown. She has been taking the antibiotic. She feels rather tired. No chills nor fever. She denies headaches. Denies chest pain. She gets SOB, she has COPD. Denies any recent hematuria. She has increased frequency of micturition. Denies joint pain or muscle pain. She has leg weakness. She feels depressed. No skin rashes or pruritus. INTERIM HISTORY: She tells me she was in house between 01/01 in 01/07. Discharge summary: 72 year old female with advanced metastatic bladder cancer who was admitted with sepsis, pneumonia, COPD exacberation, possible UTI. She has Bacteroides thetaiotaomicron bacteremia. ID was concerned for possible colovesical fistrula? and recommends IV Ceftriaxone and Flagyl for possible 14 days. She was evaluated by Surgery? and Urology and there is no evidence of? colovesicular fistual. CT show no bladder air. To complete 14 days of Ceftriaxone and Falgyl, midline is inserted for IV Ceftriaxone and will get PO Flagyl. COPD exacerbation, treated with steroid and bronchodialtors She feels a bit better however she is still on IV antibiotics till Thursday. PRESENTING HISTORY: She was referred by Dr. Ponce on account of progressive bladder cancer. She was admitted to the hosptial recently, discharge summary: 72 yo F with a PMH of COPD, CAD, DM, HTN, active Tobacco use (4 to 6 cig/day), Cervical stenosis who presents to the ED with increasing shortness of breath, chest tightness for? 2 days? and not getting relief with Trelegy albuterol and DuoNeb. She has cough with? phlegm. She has no fever or chills. She has had no inpatient admission for more than a year.?Work up in ED: no PNA on CXR, nl WBC, no hypoxia. Treated with Duoneb, IV Solu-medrol, magneseium and Ceftriaxone. Course: Patient admitted to [facility] [place] [facility] thin started on ceftriaxone and azithromycin. She was also started on pulse dose Solu-Medrol. DuoNebs q.4 hours while awake; slow to respond to therapy. She felt better and left to return to home on O2. At this point she is medically acceptable for discharge will be discharged on a course of Ceftin and a prednisone taper. She can follow-up with PCP in office in 2 weeks PAST MEDICAL HISTORY: She was initially diagnosed with Bladder carcinoma in 2019. On cystoscopy, found to have a 2.5 to 3 cm lesion on the posterior wall upper half of the bladder, long smoking history. Plan for removal with bilateral retrograde. She has had abdominal CT, which was normal. Bladder, transurethral resection: - Low grade papillary urothelial carcinoma, non-invasive. - No muscularis propria identified. Bladder, transurethral resection/biopsy Type: Papillary urothelial carcinoma, non-invasive Histologic grade: Low grade Muscularis propria: Not identified Extent of invasion: Non-invasive Lymphovascular invasion: Not identified. Discussed TURBT findings: High-grade invasive bladder cancer with LVI. CT scan of the abdomen and pelvis from 08/08/22: 1. Large mass arising from the left bladder wall with direct extension into the prostate fossa, left internal iliac chain and the peritoneal cavity. 2. There is extensive retroperitoneal, pelvic and right iliac lymphadenopathy. 3. There are 2 large peritoneal masses in the right mid abdomen. 4. There is no hydronephrosis seen. 5. There is no radiopaque renal calculi or enhancing renal mass seen. 6. There is mild hepatomegaly with no focal lesion seen. 7. There is a small splenic artery aneurysm. 8. There is a right lower lobe pulmonary nodule which is stable compared to CT chest 03/21/2022. Anterior abdominal wall - left upper quadrant, peritoneal mass CT CHEST from March, revealed: * Moderate pulmonary emphysema. * No acute pulmonary disease. No evidence of pulmonary embolism. * A few small stable pulmonary nodules are detected. No new lung nodule, pulmonary mass or pleural effusion. * Atherosclerotic disease of coronary arteries and thoracic aorta without aortic aneurysm. * Progressive enlargement of a lymph node in the upper abdomen, likely from metastatic disease process. Bladder cancer low-grade recurrence (early 2020) underwent immunotherapy induction Bladder cancer was initially diagnosed during evaluation for gross hematuria - 06/29 Dr Ponce. Bladder intervention(s) performed 07/27 , TURBT, , Ta noninvasive papillary carcinoma, Papillary lesion of low grade malignant potential 08/27 BCG 3 induction due to other risk factors. - 05/31 TURBT with gemcitabine - low-grade bladder cancer - Induction with 6 weeks Gemcitabine Abdomen therapy - 07/01 6 weeks gemcitabine induction, 09/28 three-week gemcitabine boost - 08/31 TURBT posterior mid bladder high-grade invasive with LVI Recurrence Risk per EORTC Low Risk. Bladder cancer risk factors Organic Solvent exposure No smoking Yes - heavy smoker - greater than 50 year pack per day Prior Cystoscopy 11/26 , Negative 06/30 NAD, 01/28 1 cm posterior wall lesion. 09/28 NAD, 8 NAD, 08/29 NAD Prior Cytology 08/27 , Negative for malignancy, 10 NAD Prior Imaging 05/29 CT scan with contrast, Bladder lesion 1,6 cm - 05/[address] with known nodules - 07/31 CT Urogram - There is bulky lymphadenopathy in the left internal iliac chain and likely exophytic mass arising off the left bladder with direct extension to the left bladder wall, the peritoneal and into the prostate fossa Planned treatment cystoscopy 6 months - goes to [place] for winter. PFSH: Medical History: Anxiety CAD (coronary artery disease) Cervical stenosis of spine COPD (chronic obstructive pulmonary disease) Depression Diabetic polyneuropathy associated with type 2 diabetes mellitus DM type 2 (diabetes mellitus, type 2) Elevated BUN History of smoking at least 1 pack per day for at least 30 years HTN (hypertension) FAMILY HISTORY: Younger sister has breast cancer. 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 She is . She had 3 children. She used to smoke 2 packs a day quit now down to 4 cigarettes a day. Denies alcohol. Review of Systems - Constitutional Reports no additional constitutional complaints - Eyes Reports no additional eye complaints - ENT Reports no additional ear, nose, mouth, and throat complaints - Cardiovascular Reports no additional cardiovascular complaints - Respiratory Reports no additional respiratory complaints - Gastrointestinal Reports no additional gastrointestinal complaints - Genitourinary Reports no additional female genitourinary complaints - Musculoskeletal Reports no additional musculoskeletal complaints - Integumentary/Breasts Skin/Breast: Reports no additional skin complaints - Neurologic Reports no additional neurologic complaints, Reports headache(s), Reports weakness - Psychiatric Reports no additional psychiatric complaints - Endocrine Reports no additional endocrine complaints - Hematologic/Lymphatic Reports no additional hematologic/lymphatic complaints - Allergic/Immunologic Reports no additional allergic/immunologic complaints [facility] Medical History: Medical History (Last Reviewed 03/27/23 @ 11:34 by Darrick Olivares) Anxiety Bladder cancer CAD (coronary artery disease) Cervical stenosis of spine COPD (chronic obstructive pulmonary disease) Depression Diabetic polyneuropathy associated with type 2 diabetes mellitus DM type 2 (diabetes mellitus, type 2) Elevated BUN History of cancer History of smoking at least 1 pack per day for at least 30 years HTN (hypertension) Hyperlipidemia Left leg swelling Low vitamin D level Mass of peritoneum Migraine headache Neck pain Nonalcoholic steatohepatitis (CHRISTINE) Pulmonary nodule 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 Smoker Vertigo Vitamin B 12 deficiency Vitamin B12 deficiency Functional capacity: uses cane/walker Patient : No Family History: Family History (Last Reviewed 03/27/23 @ 11:34 by Darrick Olivares) Mother CVD (cardiovascular disease) CVA (cerebral vascular accident) Father CVD (cardiovascular disease) Sister Breast cancer Family/Other Breast cancer Surgical History: Surgical History (Last Reviewed 03/27/23 @ 11:34 by Darrick Olivares) Fusion of spine of cervical region History of carpal tunnel release History of heart artery stent History of hysterectomy Social History: Social History (Last Reviewed 03/27/23 @ 11:34 by Darrick Olivares) Living Situation History: Household Members: Other Household Members Other:: house mate Housing: House Do you presently have visiting nurse or other home services: No Alcohol History Details: 1. How often do you have a drink containing alcohol?: a. Never Tobacco History: Patient Tobacco Use Status: Current everyday Tobacco Tobacco use type: Cigarette Cigarette Packs Per Day: 0.5 Years Smoked: 63 e-Cigarette/Vaping Use: Never Used Second Hand Smoke Exposure: No Domestic Abuse History: Have you been hit, kicked, punched, or otherwise hurt by someone within the past year? 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 Performance Status ECOG Performance Status: 0 Home Medications and Allergies Home Medications Medication Instructions Recorded Confirmed Type multivitamin (Daily Multi-Vitamin 1 tab PO BEDTIME 12/25/20 03/27/23 History tablet) aspirin 81 mg chewable tablet 1 tab PO BEDTIME 09/11/21 03/27/23 History atorvastatin 80 mg tablet 80 mg PO BEDTIME 09/11/21 03/27/23 History nitroglycerin 0.4 mg sublingual 1 tab sublingual Q5M PRN Chest Pain 09/11/21 03/27/23 History tablet lancets 33 gauge (TRUEplus Lancets) #100 ea 11/20/21 03/27/23 History bupropion HCl 150 mg 24 hr tablet, 150 mg PO DAILY 09/10/22 03/27/23 History extended release Oxygen Home Use 09/23/22 03/27/23 History oxbsijhhwo-jqaabqoxtvszf-knmucsow 1 tab PO Q6H PRN Headache 12/31/22 03/27/23 History 50 mg-325 mg-40 mg tablet ipratropium 0.5 mg-albuterol 3 mg 3 ml inhalation QID PRN Shortness 12/31/22 03/27/23 History (2.5 mg base)/3 mL nebulization Of Breath soln nystatin 100,000 unit/gram topical 1 appl topical TID PRN Rash 12/31/22 03/27/23 History powder zolpidem 10 mg tablet 10 mg PO BEDTIME 12/31/22 03/27/23 History Allergies Allergy/AdvReac Type Severity Reaction Status Date / Time amoxicillin [AMOXICILLIN] Allergy Mild DIARRHEA Verified 03/27/23 11:34 Darvocet A500 Allergy Unknown upset Verified 03/27/23 11:34 stomach melatonin Allergy Unknown Nausea and Verified 03/27/23 11:34 Vomiting oxycodone [From PERCOCET] Allergy Unknown NAUSEA,VOMI Verified 03/27/23 11:34 TING propoxyphene Allergy Unknown Stomach Verified 03/27/23 11:34 Upset influenza virus vaccine, AdvReac Intermediate NAUSEA,DIAR Verified 03/27/23 11:34 specific WU [FLU VACCINE] lactose [LACTOSE] AdvReac Intermediate GI UPSET Verified 03/27/23 11:34 metronidazole [From FLAGYL] AdvReac Intermediate NAUSEA & Verified 03/27/23 11:34 VOMITING Sulfa (Sulfonamide AdvReac Intermediate EYE DROPS Verified 03/27/23 11:34 Antibiotics) (ONLY)-IRITIS Exam Vital signs: Vital Signs Temp 97.6 F 03/12/23 09:10 Pulse 96 03/27/23 11:35 Resp 18 03/12/23 09:10 BP 101/50 L 03/27/23 11:35 Pulse Ox 99 03/27/23 11:35 O2 Del Method Room Air 03/27/23 11:35 Intake & Output 03/26/23 03/27/23 03/27/23 18:59 06:59 18:59 Other: Weight 52.5 kg [place] Weight in Grams [id number] Weight 52.5 kg BMI result Body Mass Index 21.9 - Constitutional Present: no acute distress - Routine HEENT Exam Head: Present: atraumatic, normal inspection Eye: Present: normal appearance ENT: Present: mucous membranes moist - Routine Neck Exam Present: full ROM - Routine Respiratory Exam Present: CTAB - Routine Cardiovascular Exam Cardiovascular: Present: RRR, S1, S2 - Routine Abdominal Exam Present: nontender - Routine Rectal Exam Patient deferred: digital exam - Routine Extremities Exam Present: nontender - Routine Back/Spine/Pelvis Exam Back/Spine: Present: full ROM - Routine Skin Exam Present: intact - Routine Neurological Exam Present: alert, oriented X3 - Routine Psychiatric Exam Present: normal affect Data - Labs CBC & Chem 7: 03/12/23 09:19 03/12/23 09:19 Assessment and Plan Patient Active problem list reviewed?: Yes (1) Bladder cancer Problem details: Recurrent low-grade TURBT with induction immunotherapy 2020 2022 - high-grade bladder cancer Status: Inactive Assessment and plan: A 72-year-old female, seen in office for microscopic hematuria and recurrent UTI. On cystoscopy, found to have a 2.5 to 3 cm lesion on the posterior wall upper half of the bladder, long smoking history. Plan for removal with bilateral retrograde. She has had abdominal CT, which was normal. Bladder, transurethral resection: - Low grade papillary urothelial carcinoma, non-invasive. - No muscularis propria identified. Bladder, transurethral resection/biopsy Type: Papillary urothelial carcinoma, non-invasive Histologic grade: Low grade Muscularis propria: Not identified Extent of invasion: Non-invasive Lymphovascular invasion: Not identified papillary urothelial Carcinoma, High grade, invades into lamina propria. LVI seen. High grade. Muscularis present. CT scan of the abdomen and pelvis from 08/08/22: 1. Large mass arising from the left bladder wall with direct extension into the prostate fossa, left internal iliac chain and the peritoneal cavity. 2. There is extensive retroperitoneal, pelvic and right iliac lymphadenopathy. 3. There are 2 large peritoneal masses in the right mid abdomen. 4. There is no hydronephrosis seen. 5. There is no radiopaque renal calculi or enhancing renal mass seen. 6. There is mild hepatomegaly with no focal lesion seen. 7. There is a small splenic artery aneurysm. 8. There is a right lower lobe pulmonary nodule which is stable compared to CT chest 03/21/2022. Patient has had TURBT x 3. She has had intravesical therapy: With BCG in 2019. With Gemzar in 2020. With mitomycin in 2022. She now seems to have wide spread disease, in the abdomen. l requested IR guided biopsy of right iliac adenopathy. I discussed with Dr. Beasley who proceeded with it on 10/22. Biopsy revealed: High-grade serous carcinoma. Consistent with environmental conservation professor versus peritoneal primary. PDL-1: 13. I discussed the case with the pathologist Dr. Siddiqui. She has compared it to the previous bladder cancer and it mujica differently, in terms of the immuno stains. She is going to perform the environmental conservation professor markers on the previous bladder cancer as well. 09/01/22: Bladder tumor is also c/w Serous Papillary Carcinoma. I shared the results with her today. Explained the concerns that this could be a environmental conservation professor primary. She tells me she has had total hysterectomy 25 years ago. She thought it was done here however looking back in the pathology archives, we did not find any results. I checked with [facility] to see if she had the surgery done there. CT scan of the chest for staging. This revealed: Large multilobulated soft tissue mass arising from the bladder dome, measuring 9.2 x 6.2 x 8 cm. There is direct invasion/involvement of the rectosigmoid colon and vaginal cuff. There is likely metastatic involvement with multiple peritoneal masses and extensive retroperitoneal and gastrohepatic ligament lymphadenopathy. Disease progressionwith interval increase in size of pulmonary nodules. l checked baseline tumor markers as well: CEA 5.70, Ca 125: 2168. She saw environmental conservation professor Oncology at [facility]. on December 12. They have recommended neoadjuvant chemotherapy with 3 cycles of carbo Taxol and bevacizumab. This would be followed by surgery, possible and then another 3 cycles of chemotherapy. She prefers to have her chemotherapy here. She tells me she was in house between 01/01 in 01/07. Discharge summary: 72 year old female with advanced metastatic bladder cancer who was admitted with sepsis, pneumonia, COPD exacberation, possible UTI. She has Bacteroides thetaiotaomicron bacteremia. ID was concerned for possible colovesical fistrula? and recommends IV Ceftriaxone and Flagyl for possible 14 days. She was evaluated by Surgery? and Urology and there is no evidence of? colovesicular fistual. CT show no bladder air. To complete 14 days of Ceftriaxone and Falgyl, midline is inserted for IV Ceftriaxone and will get PO Flagyl. COPD exacerbation, treated with steroid and bronchodialtors She feels a bit better however she is still on IV antibiotics till Thursday. She presented for chemotherapy however in view the above problems will hold off today. Will let her complete the antibiotic course. Ca 125: 2562. l rechecked her imaging since it has been more than [address] abdomen from 12/30: 1. Since 11/04/2022, multiple intraperitoneal, retroperitoneal and pelvic masses have increased in size compatible with disease progression. 2. . No bowel, biliary or renal obstruction. 3. Nodular contour to the liver with enlargement of the left and caudate lobes consistent with cirrhosis. CT chest from 01/01: 1. Diffuse emphysema without acute process. 2. Right lower lobe pulmonary nodule is stable. No new nodules seen. 3. No abnormal mediastinal or axillary lymph nodes seen. 4. Moderate coronary artery calcifications are stable. She was started on carboplatin and Taxol on 01/28. Second dose on 02/19. Third cycle on 03/12. Unfortunately, she had to be dose reduced on account of toxicity and she was not able to get bevacizumab on account of 2+ protein in the urine. CT abdomen from 03/25 from [facility] revealed: Large heterogenous mass centered within the right hemipelvis with central hypoattenuation suggestive of necrosis and a small component extending into the left hemipelvis measuring up to 10.7 cm compatible with known malignancy. Multiple bilateral peritoneal implants associated with nodular peritoneal thickening and soft tissue nodules suggestive of peritoneal carcinomatosis. Multiple enlarged abdominal pelvic lymph nodes likely metastatic. Unfortunately patient's disease did not respond to the chemotherapy regimen. She has had disease progression. There is some question if she has a colovesical fistula there. Unfortunately her prognosis is rather guarded. I had a detailed discussion with her along with her [id number]. 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 She would actually like to have [facility] hospice involved since she has worked with them before. PLAN: Will refer her to [facility] hospice for further care. She has had UTI symptoms. She is on Linezolid and ceftin. Feeling a bit better. I offered my help in case she needs any thing for future. All her questions were answered to her satisfaction. Thank you, Cc: Dr. Matthews. Dr. Ponce. - Time Spent With Patient Time Spent with Patient (in minutes): 25
== END 2023-05-05 | disposition home or self-care (01) ==
LOC: HO.ONC 11:40
PROVIDERS: PCP Internal Medicine; Visit Provider Internal Medicine Medical Oncology
DX: Z51.11 Encounter for antineoplastic chemotherapy (principal); C67.4 Malignant neoplasm of posterior wall of bladder; K66.8 Other specified disorders of peritoneum; J44.9 Chronic obstructive pulmonary disease, unspecified; F17.210 Nicotine dependence, cigarettes, uncomplicated; Z90.710 Acquired absence of both cervix and uterus
CPT/HCPCS: 36415; 80053; 81001; 82378; 82607; 82728; 82746; 83540; 83615; 85025; 86304; 88341; 88342; 96360; 96361; 96366; 96367; 96375; 96413; 96415; 96417; 99204; 99213; 99214; J1100; J1200; J1453; J2405; J9045; J9267

== ENCOUNTER → 2023-05-05 | Outpatient (RCR) | payer MEDICARE, OTHER, SELFPAY ==
[2020-06-15 14:18] LABS: Appearance Urine CLEAR; Color Urine STRAW; Glucose Urine UA NEG (NEG); Leukocyte Esterase Urine NEG (NEG); Nitrite Urine NEG (NEG); Urine Blood 1+ (NEG); Urine Ketones NEG (NEG); Urine Protein NEG (NEG-TRACE)
[2020-06-15 14:41] LABS: Squamous Epithelial Cell Urine TRACE /LPF
[2020-06-15 14:45] VITALS: BP 130/59; PULSE 66; TEMP 36.7; O2SAT 99
[2020-06-15] MEDS: Lidocaine HCl 2 % Urojet 10 ML JEL.PF.APP TOPICAL (15:22)
--- NOTE | 2020-06-15 15:54 | MHC.HEMONC ---
Pt here for bladder instillation. Urine spec sent to lab, results sent to Dr Ponce. Dr Ponce in room to sign consent. Procedure done and pt tolerated well. Scheduled to return in 1 week for next treatment. Discharge instructions given.
[2020-06-22 12:06] LABS: Glucose Urine UA NEG (NEG); Leukocyte Esterase Urine TRACE (NEG); Nitrite Urine NEG (NEG); Specific Gravity - Urine 1.015 (1.005-1.025); Urine Blood 1+ (NEG); Urine Ketones NEG (NEG); Urine Protein NEG (NEG-TRACE)
[2020-06-22 12:08] LABS: Appearance Urine HAZY; Color Urine YELLOW
[2020-06-22 12:38] LABS: Bacteria Urine TRACE /LPF; Squamous Epithelial Cell Urine TRACE /LPF
[2020-06-22 13:30] VITALS: BP 112/56; PULSE 92; TEMP 36.3; O2SAT 99
[2020-06-22] MEDS: Lidocaine HCl 2 % Urojet 10 ML JEL.PF.APP TOPICAL (14:13)
--- NOTE | 2020-06-22 14:52 | MHC.HEMONC ---
Pt here for bladder instillation. States did well after last treatment. Reports slight cramping the day after treatment. Denies any bleeding or pain with urination. Treatment done and pt tolerated well. Scheduled to return in 1 week.
[2020-06-29 13:57] LABS: Glucose Urine UA NEG (NEG); Leukocyte Esterase Urine TRACE (NEG); Nitrite Urine NEG (NEG); PH 5.5 (5.0-8.0); Specific Gravity - Urine >= 1.030 (1.005-1.025); Urine Blood 1+ (NEG); Urine Ketones 15 MG/DL (NEG); Urine Protein 1+ MG/DL (NEG-TRACE)
[2020-06-29 14:01] LABS: Appearance Urine CLOUDY; Color Urine YELLOW
[2020-06-29 14:15] LABS: Bacteria Urine 2+ /LPF; Squamous Epithelial Cell Urine 2+ /LPF; WBC Urine 50-75 /HPF (0-4)
[2020-06-29 14:40] VITALS: BP 103/51; PULSE 100; TEMP 36.8; O2SAT 97
[2020-06-29] MEDS: Lidocaine HCl 2 % Urojet 10 ML JEL.PF.APP TOPICAL (14:50)
--- NOTE | 2020-06-29 15:56 | MHC.HEMONC ---
Pt here for treatment. Urine sent to lab, results sent to Dr Ponce. Pt states did well after last treatment. Denies any pain or bleeding with urination. Catheter placed, and very small amount urine obtained. Chemo instilled. Pt unable to hold urine after 15 minutes. Voided in toilet, states large amount. Pt scheduled to return for next treatment in 1 week.
[2020-07-06 13:21] LABS: Glucose Urine UA NEG (NEG); Leukocyte Esterase Urine TRACE (NEG); Nitrite Urine NEG (NEG); PH 5.5 (5.0-8.0); Specific Gravity - Urine 1.025 (1.005-1.025); Urine Blood NEG (NEG); Urine Ketones NEG (NEG); Urine Protein NEG (NEG-TRACE)
[2020-07-06 13:23] LABS: Appearance Urine HAZY; Color Urine YELLOW
[2020-07-06 13:31] LABS: Bacteria Urine TRACE /LPF; RBC Urine 0 /HPF (0); Squamous Epithelial Cell Urine TRACE /LPF; WBC Clumps Urine NOTED
[2020-07-06 14:04] VITALS: BP 103/50; PULSE 91; RESP 18; TEMP 36.8; O2SAT 99; BMI 22.6
[2020-07-06] MEDS: Lidocaine HCl 2 % Urojet 10 ML JEL.PF.APP TOPICAL (14:24)
--- NOTE | 2020-07-06 15:43 | MHC.HEMONC ---
Pt here for gemcitabine bladder instillation. Pt states she did not have a good week after last treatment. She states that once she left here last week, she had a hard time holding her urine, stating she only has a 20min[address] drive. She states she voided approx q2h once she got home. She states she also became nauseous on and Thu, but is better now. Urine sent to lab, and results sent to Dr Ponce. Also reported above to Dr Ponce, and he is ok to proceed with treatment. Treatment done and pt tolerated well. She did need to void prior to leaving, and states she only voided a small amount. Encouraged to call Dr Ponce if she has any problems.
[2020-07-13 12:55] LABS: Glucose Urine UA NEG (NEG); Leukocyte Esterase Urine 1+ (NEG); Nitrite Urine NEG (NEG); PH 5.5 (5.0-8.0); Urine Blood TRACE (NEG); Urine Ketones NEG (NEG); Urine Protein 1+ MG/DL (NEG-TRACE)
[2020-07-13 12:59] VITALS: BMI 22.2
[2020-07-13 13:06] LABS: Appearance Urine CLOUDY; Color Urine YELLOW
[2020-07-13 13:15] LABS: Bacteria Urine 2+ /LPF; RBC Urine 0-2 /HPF (0); Squamous Epithelial Cell Urine 1+ /LPF; WBC Urine 50-75 /HPF (0-4)
[2020-07-13] MEDS: Lidocaine HCl 2 % Urojet 10 ML JEL.PF.APP TOPICAL (14:05)
[2020-07-13 15:24] VITALS: BP 100/50; PULSE 87; TEMP 37.1; O2SAT 98
--- NOTE | 2020-07-13 15:31 | MHC.HEMONC ---
Pt here for week 5 of gemcitibine. Urine sent to lab. Pt states she felt burning with urination all week. Urine results sent to Dr Ponce, and also reported the burning with urination. OK to go ahead with treatment. When pt catheterized, only obtained around 30cc dark urine. Once gemcitibine instilled, pt then had to immediately urinate. Placed on bedpan, and pt did void around 50cc. Dr Ponce notified of all of above, and will send prescription for antibiotics. Pt is aware. Scheduled to return in 1 week for last treatment.
[2020-07-20 11:22] LABS: Glucose Urine UA NEG (NEG); Leukocyte Esterase Urine NEG (NEG); Nitrite Urine NEG (NEG); PH 6.5 (5.0-8.0); Specific Gravity - Urine 1.025 (1.005-1.025); Urine Blood 1+ (NEG); Urine Ketones NEG (NEG); Urine Protein 2+ MG/DL (NEG-TRACE)
[2020-07-20 11:24] LABS: Appearance Urine CLOUDY; Color Urine YELLOW
[2020-07-20 11:40] LABS: Squamous Epithelial Cell Urine 1+ /LPF
[2020-07-20 11:57] VITALS: BP 103/47; PULSE 100; RESP 20; TEMP 36.4; O2SAT 99
[2020-07-20] MEDS: Lidocaine HCl 2 % Urojet 10 ML JEL.PF.APP TOPICAL (12:35)
--- NOTE | 2020-07-20 14:12 | MHC.HEMONC ---
Pt here for her last gemcitibine treatment. States feels good this week. Finished her antibiotic yesterday, and states the burning is better. Urine results sent to Dr Ponce. Ok for treatment. Straight cath done, only obtained drops of urine. Treatment done, and pt had a difficult time holding her urine. Put on bedpan, and voided some. States feels able to hold it now. Is leaving [facility] for trip to [place]. Will call Dr Ponce with any problems.
== END | disposition home or self-care (01) ==
LOC: HO.ONC 06-15 13:33
PROVIDERS: PCP Internal Medicine; Visit Provider Urology
DX: Z51.11 Encounter for antineoplastic chemotherapy (principal); C67.9 Malignant neoplasm of bladder, unspecified
CPT/HCPCS: 51720; 81001; J9201